=== PATIENT | male | born 1950 | race Caucasian/White ===

== ENCOUNTER 2023-02-18 11:31 | Outpatient (OUT) | payer MEDICARE, SELFPAY | END 2023-02-18 11:32 | LOC: WC 11:31 | PROVIDERS: PCP Family Medicine; Visit Provider Podiatrist Foot & Ankle Surgery | DX: G60.9 Hereditary and idiopathic neuropathy, unspecified (principal); M21.6X1 Other acquired deformities of right foot; M79.671 Pain in right foot; L97.512 Non-pressure chronic ulcer of other part of right foot with fat layer exposed; T87.89 Other complications of amputation stump; L89.891 Pressure ulcer of other site, stage 1 | CPT/HCPCS: 99212; G0463 ==

== ENCOUNTER 2023-02-25 09:51 | Outpatient (OUT) | payer MEDICARE, OTHER, SELFPAY | END 2023-02-25 09:52 | LOC: WC 09:51 | PROVIDERS: PCP Family Medicine; Visit Provider Podiatrist Foot & Ankle Surgery | DX: M21.6X1 Other acquired deformities of right foot (principal); M79.671 Pain in right foot; G60.9 Hereditary and idiopathic neuropathy, unspecified; L97.512 Non-pressure chronic ulcer of other part of right foot with fat layer exposed; T87.89 Other complications of amputation stump; L89.891 Pressure ulcer of other site, stage 1 | CPT/HCPCS: 29445 ==

== ENCOUNTER 2023-03-04 07:53 | Outpatient (OUT) | payer MEDICARE, OTHER, SELFPAY | END 2023-03-04 07:54 | PROVIDERS: PCP Family Medicine; Visit Provider Podiatrist Foot & Ankle Surgery | DX: T87.89 Other complications of amputation stump (principal); L89.891 Pressure ulcer of other site, stage 1 | CPT/HCPCS: 99211; G0463 ==

== ENCOUNTER 2023-03-11 09:46 | Outpatient (OUT) | payer MEDICARE, OTHER, SELFPAY | END 2023-03-11 09:47 | disposition home or self-care (01) | LOC: WC 09:46 | PROVIDERS: PCP Family Medicine; Visit Provider Podiatrist Foot & Ankle Surgery | DX: T87.89 Other complications of amputation stump (principal); M21.6X1 Other acquired deformities of right foot; L89.891 Pressure ulcer of other site, stage 1; E78.49 Other hyperlipidemia; I10 Essential (primary) hypertension; M79.671 Pain in right foot; G60.9 Hereditary and idiopathic neuropathy, unspecified; G60.0 Hereditary motor and sensory neuropathy; L97.512 Non-pressure chronic ulcer of other part of right foot with fat layer exposed | CPT/HCPCS: G0463 ==

== ENCOUNTER 2023-03-29 09:16 | Outpatient (OUT) | payer MEDICARE, OTHER, SELFPAY | END 2023-03-29 09:17 | disposition home or self-care (01) | LOC: WC 09:16 | PROVIDERS: PCP Family Medicine; Visit Provider Podiatrist Foot & Ankle Surgery | DX: M21.6X1 Other acquired deformities of right foot (principal); M79.671 Pain in right foot; G60.9 Hereditary and idiopathic neuropathy, unspecified; L97.512 Non-pressure chronic ulcer of other part of right foot with fat layer exposed | CPT/HCPCS: G0463 ==

== ENCOUNTER 2023-04-21 06:11 | Outpatient (OUT) | payer MEDICARE, OTHER, SELFPAY ==
[2023-04-21 07:24] LABS: Free T3 2.95 pg/mL (2.18-3.98); Thyroid Stimulating Hormone 5.163 uIU/mL (0.358-3.740)
[2023-04-21 07:39] LABS: Free T4 0.98 ng/dL (0.76-1.46)
== END 2023-04-21 06:12 | disposition home or self-care (01) ==
LOC: LAB 06:12
PROVIDERS: PCP Family Medicine; Visit Provider Family Medicine
DX: E05.90 Thyrotoxicosis, unspecified without thyrotoxic crisis or storm (principal)
CPT/HCPCS: 36415; 84439; 84443; 84481

== ENCOUNTER 2023-05-25 06:51 | Outpatient (OUT) | payer MEDICARE, OTHER, SELFPAY ==
[2023-05-25 07:57] LABS: Free T4 0.97 ng/dL (0.76-1.46)
[2023-05-25 08:04] LABS: Free T3 3.05 pg/mL (2.18-3.98); Thyroid Stimulating Hormone 4.391 uIU/mL (0.358-3.740)
== END 2023-05-25 06:52 | disposition home or self-care (01) ==
LOC: LAB 06:54
PROVIDERS: PCP Family Medicine; Visit Provider Family Medicine
DX: E05.90 Thyrotoxicosis, unspecified without thyrotoxic crisis or storm (principal)
CPT/HCPCS: 36415; 84439; 84443; 84481

== ENCOUNTER 2023-06-27 06:20 | Outpatient (OUT) | payer MEDICARE, OTHER, SELFPAY ==
[2023-06-27 08:24] LABS: Free T4 1.17 ng/dL (0.76-1.46)
[2023-06-27 08:28] LABS: Thyroid Stimulating Hormone 2.805 uIU/mL (0.358-3.740)
== END 2023-06-27 06:21 | disposition home or self-care (01) ==
LOC: LAB 06:22
PROVIDERS: PCP Family Medicine; Visit Provider Family Medicine
DX: E05.90 Thyrotoxicosis, unspecified without thyrotoxic crisis or storm (principal)
CPT/HCPCS: 36415; 84439; 84443

== ENCOUNTER 2023-07-05 09:25 | Outpatient (OUT) | payer MEDICARE, OTHER, SELFPAY ==
--- NOTE | 2023-07-05 | XR_ITS ---
The [address] [address] Patient Name: SILVINO MARVIN MRN: [id number] date: 1950 Sex: M Assigned Patient Location: Current Patient Location: Accession/Order Number: [id number] Exam Date: 07/05/2023 09:35 Report Date: 07/06/2023 01:28 At the request of: IVELISSE ORNELAS Procedure: XR foot RT min 3V PROCEDURE: XR foot RT min 3V HISTORY: RIGHT FOOT INJURY COMPARISON: XR foot right 02/07/2023 FINDINGS: BONES:Prior amputation of the fifth toe at the level of the mid metatarsal. Mild degenerative changes the first metatarsophalangeal joint and the tarsal-metatarsal joints. Degenerative enthesopathic spurring at the Achilles tendon insertion. SOFT TISSUES:Mild distal medial and dorsal soft tissue swelling. EFFUSION:None visible. OTHER: Negative. XR/XR foot RT min 3V IMPRESSION: 1. Chronic surgical changes. 2. Mild soft tissue swelling. No acute bone abnormality. Electronically authenticated by: JASE TIDWELL Date: 07/06/2023 01:28
== END 2023-07-05 09:26 | disposition home or self-care (01) ==
LOC: WC 09:26
PROVIDERS: PCP Family Medicine; Visit Provider Podiatrist Foot & Ankle Surgery
DX: L97.512 Non-pressure chronic ulcer of other part of right foot with fat layer exposed (principal); G62.9 Polyneuropathy, unspecified; I10 Essential (primary) hypertension; E78.49 Other hyperlipidemia; M21.6X1 Other acquired deformities of right foot; T87.89 Other complications of amputation stump; S90.111A Contusion of right great toe without damage to nail, initial encounter
CPT/HCPCS: 73630; G0463

== ENCOUNTER 2023-07-26 09:29 | Outpatient (OUT) | payer MEDICARE, OTHER, SELFPAY ==
--- NOTE | 2023-07-26 | XR_ITS ---
[address] [address] Patient Name: SILVINO MARVIN MRN: [id number] date: 1950 Sex: M Assigned Patient Location: [facility] Current Patient Location: RAD Accession/Order Number: [id number] Exam Date: 07/26/2023 09:38 Report Date: 07/26/2023 11:03 At the request of: IVELISSE ORNELAS Procedure: XR foot JOHANNY min 3V EXAMINATION: XR foot JOHANNY min 3V HISTORY: BILATERAL FOOT PAIN COMPARISON: No relevant comparison available. FINDINGS: RIGHT FINDINGS: BONES: No acute fracture or dislocation. Remote amputation of the fifth toe mid diaphysis of the fifth metatarsal. Persistent hammertoe deformities of the first through fourth toes. Mild degenerative changes. Moderate enthesopathic spurring the calcaneus at the Achilles insertion SOFT TISSUES: Negative. No visible soft tissue swelling. OTHER: Negative. LEFT FINDINGS: BONES: No acute fracture or dislocation. Hammertoe deformities of all toes. SOFT TISSUES: Negative. No visible soft tissue swelling. OTHER: Negative. XR/XR foot JOHANNY min 3V IMPRESSION: RIGHT CONCLUSION: No acute abnormality LEFT CONCLUSION: No acute abnormality Electronically authenticated by: PHIL PEOPLES Date: 07/26/2023 11:03
== END 2023-07-26 09:30 | disposition home or self-care (01) ==
LOC: RAD 09:29
PROVIDERS: PCP Family Medicine; Visit Provider Podiatrist Foot & Ankle Surgery
DX: M25.571 Pain in right ankle and joints of right foot (principal); M25.572 Pain in left ankle and joints of left foot
CPT/HCPCS: 73610; 73630

== ENCOUNTER 2024-04-23 07:05 | Outpatient (OUT) | payer MEDICARE, OTHER, SELFPAY ==
--- OUTSIDE RECORDS SUMMARY | 2024-04-23 07:10 | XMS_ITS | CCD ---
Author Organization [facility] CliniSymd Care Team Providers Care Road Traffic Controller Name Role Phone CHEIKH ., DR NARANJO Primary Care Unavailable HIGHLANDER, PETER D Admitting Unavailable HIGHLANDER, PETER D Attending Unavailable HIGHLANDER, PETER D Attending Unavailable HIGHLANDER, PETER D Admitting Unavailable HOY ., DR NARANJO Primary Care Unavailable HOY ., DR NARANJO Primary Care Unavailable HIGHLANDER, PETER D Admitting Unavailable HIGHLANDER, PETER D Attending Unavailable HIGHLANDER, PETER D Attending Unavailable HIGHLANDER, PETER D Admitting Unavailable ZIEBER, DR OLVIN Lopez Consulting Unavailable HOY ., DR NARANJO Primary Care Unavailable HIGHLANDER, PETER D Consulting Unavailable MIRACLE ., WENDY JIMENEZ Consulting Unavailable ROSCOE II, BENITA Consulting Unavailable BURGESSTOMMY Consulting Unavailable HOY ., DR NARANJO Primary Care Unavailable HOY ., DR NARANJO Consulting Unavailable HOY ., DR NARANJO Attending Unavailable HOY ., DR NARANJO Admitting Unavailable HOY ., DR NARANJO Primary Care Unavailable HOY ., DR NARANJO Consulting Unavailable HOY ., DR NARANJO Attending Unavailable HOY ., DR NARANJO Admitting Unavailable HOY ., DR NARANJO Primary Care Unavailable HOY ., DR NARANJO Consulting Unavailable HOY ., DR NARANJO Attending Unavailable HOY ., DR NARANJO Admitting Unavailable HOY ., DR NARANJO Primary Care Unavailable HOY ., DR NARANJO Consulting Unavailable HOY ., DR NARANJO Attending Unavailable HOY ., DR NARANJO Admitting Unavailable HIGHLANDER, PETER D Admitting Unavailable HIGHLANDER, PETER D Attending Unavailable HOY ., DR NARANJO Primary Care Unavailable HOY ., DR NARANJO Primary Care Unavailable HOY ., DR NARANJO Consulting Unavailable HOY ., DR NARANJO Attending Unavailable HOY ., DR NARANJO Admitting Unavailable ZIEBER, DR OLVIN Lopez Consulting Unavailable HOY ., DR NARANJO Primary Care Unavailable HIGHLANDER, PETER D Consulting Unavailable HIGHLANDER, PETER D Attending Unavailable HIGHLANDER, PETER D Admitting Unavailable Medications Current Medications Medication Drug Class(es) Dates Sig (Normalized) Sig (Original) doxazosin 4 mg oral tablet (1 source) alpha-Adrenergic Isela Start: 04-06-2024 Doxazosin Active MG PO April 06, 2024 12:00am levothyroxine sodium 0.075 mg oral tablet (1 source) l-Thyroxine Start: 04-06-2024 Levothyroxine Active MCG PO April 06, 2024 12:00am magnesium oxide 500 mg oral capsule (1 source) Start: 04-06-2024 take 500 mg by mouth once daily Magnesium Oxide Active 500 MG PO Daily April 06, 2024 12:00am ofloxacin 3 mg/ml ophthalmic solution (1 source) Quinolone Antimicrobial Start: 04-06-2024 take 1 drop(s) into the eye(s) four times daily Ofloxacin Active 2 DROPS OPHTHALMIC Four times daily 10 7 April 06, 2024 12:00am right eye oxybutynin chloride 5 mg oral tablet (1 source) Cholinergic Muscarinic Antagonist Start: 04-06-2024 Oxybutynin Chloride Active MG PO April 06, 2024 12:00am Problems Active Problems Problem Classification Problem Date Documented Da te Episodic/Chronic Acquired foot deformities (1 source) Other acquired deformities of right foot; Translations: [OTHER ACQUIRED DEFORMITIES RT FOOT] Onset: 02-16-2023 Episodic Chronic ulcer of skin (5 sources) 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 breakdown of skin; Translations: [Non-pressure chronic ulcer of right heel and midfoot with fat layer exposed] Onset: 02-06-2023 Chronic Complications of surgical procedures or medical care (4 sources) Other complications of amputation stump; Translations: [OTH COMPLICATIONS AMPUTATION STUMP] Onset: 02-10-2023 Episodic Congestive heart failure; nonhypertensive (1 source) Unspecified diastolic (congestive) heart failure; Translations: [UNSPECIFIED DIASTOLIC HEART FAILURE] Onset: 12-11-2022 Chronic Deficiency and other anemia (1 source) Anemia, unspecified; Translations: [ANEMIA UNSPECIFIED] Onset: 12-11-2022 Episodic Diabetes mellitus with complications (1 source) Type 2 diabetes mellitus with foot ulcer; Translations: [TYPE 2 DM W/FOOT ULCER] Onset: 02-06-2023 Chronic Disorders of lipid metabolism (1 source) Hyperlipidemia, unspecified; Translations: [HYPERLIPIDEMIA UNSPECIFIED] Onset: 02-16-2023 Chronic Essential hypertension (1 source) Essential (primary) hypertension; Translations: [ESSENTIAL PRIMARY HYPERTENSION] Onset: 02-16-2023 Chronic Hypertension with complications and secondary hypertension (1 source) Hypertensive heart disease with heart failure; Translations: [HTN HEART DISEASE W/HEART FAIL] Onset: 12-11-2022 Chronic Inflammation; infection of eye (except that caused by tuberculosis or sexually transmitteddisease) (2 sources) Bacterial conjunctivitis; Translations: [Unspecified conjunctivitis] 04-06-2024 Episodic Other aftercare (1 source) Other fdc (current) drug therapy; Translations: [OTH HALF-WAY CURRENT DRUG THERAPY] Onset: 02-16-2023 Episodic Other lower respiratory disease (4 sources) Dyspnea, unspecified; Translations: [DYSPNEA UNSPECIFIED] Onset: 01-03-2023 Episodic Other lower respiratory disease (4 sources) Other forms of dyspnea; Translations: [OTHER FORMS OF DYSPNEA] Onset: 12-21-2022 Episodic Other nervous system disorders (1 source) Polyneuropathy, unspecified; Translations: [POLYNEUROPATHY UNSPECIFIED] Onset: 02-16-2023 Chronic Other skin disorders (1 source) Epidermal thickening, unspecified; Translations: [EPIDERMAL THICKENING UNSPECIFIED] Onset: 02-16-2023 Episodic Residual codes; unclassified (1 source) Localized edema; Translations: [LOCALIZED EDEMA] Onset: 01-06-2023 Episodic Thyroid disorders (4 sources) Hypothyroidism, unspecified; Translations: [HYPOTHYROIDISM UNSPECIFIED] Onset: 01-07-2023 Chronic Past or Other Problems Problem Classification Problem Date Documented Da te Episodic/Chronic Malaise and fatigue (1 source) Other fatigue; Translations: [OTHER FATIGUE] Onset: 04-13-2022 Episodic Other screening for suspected conditions (not mental disorders or infectious disease) (6 sources) Other specified abnormal findings of blood chemistry; Translations: [Encounter for screening for malignant neoplasm of prostate] Onset: 04-09-2022 Episodic Results Test Name Value Interpretation Reference Range Facility CULTURE OTHERon 02-11-2023 CULTURE OTHER Isolate 1 Staphylococcus aureus Light growth of ORGANISM 1 Staphylococcus aureus ANTIBIOTIC M.I.C RX STATUS Beta-Lactamase Pos POS F Cefoxitin Screen Neg NEG F Benzylpenicillin >=0.5 R F Oxacillin <=0.25 S F Gentamicin <=0.5 S F Ciprofloxacin <=0.5 S F Levofloxacin <=0.12 S F Moxifloxacin <=0.25 S F Inducible Clindamycin Resistance Neg NEG F Erythromycin <=0.25 S F Clindamycin <=0.25 S F Quinupristin/Dalfopri stin <=0.25 S F Linezolid 2 S F Vancomycin <=0.5 S F Tetracycline <=1 S F Rifampicin <=0.5 S F Trimethoprim/Sulfamet hoxazole <=10 S F Normal [facility] Comment on above: Performed By: #### L IPID, T4, TSH, FT3, CMP #### [facility] [address] [place] [address] Dr. Maggy Irving FUNGAL CULTUREon 02-09-2023 Fungus Stain Final report Normal [facility] Comment on above: Performed By: #### L IPID, T4, TSH, FT3, CMP #### [facility] [address] [place] [address] Dr. Maggy Irving Result 1 Comment Normal [facility] Comment on above: Result Comment: SUDHIR/ Calcofluor preparation: no fungus observed. Performed By: #### L IPID, T4, TSH, FT3, CMP #### [facility] [address] [place] [address] Dr. Maggy Irving ACID FAST SMEAR AND CXon Acid Fast Smear Negative Normal [facility] Comment on above: Performed By: #### A FB #### [facility] [address] [place] [address] Dr. Maggy Irving [employer] Specimen Processing Tissue Grinding [facility] Comment on above: Performed By: #### A FB #### [facility] [address] [place] [address] Dr. Maggy Irving CULTURE ANAEROBICon 02-08-20 CULTURE ANAEROBIC Isolate 1 Finedottyldia magna Light growth of Normal [facility] Comment on above: Result Comment: EVID ENCE BASED PRACTICE BY [facility] HAS DEMONSTRATED THAT FINEGOLDIA SPECIES ARE ROUTINELY SUSCEPTIBLE TO PIPERACILLIN-TAZOBACTAM, CEFOXITIN, ERTAPENEM, IMIPENEM METRONIDAZOLE AND VARIABLY RESISTANT TO CLINDAMYCIN. Performed By: #### L IPID, T4, TSH, FT3, CMP #### [facility] [address] [place] [address] Dr. Maggy MENDOZA STAINon 02-07-2023 COMMENTS NO ORGANISMS OBSERVED Normal [facility] Comment on above: Performed By: #### G STAIN #### [facility] [address] [place] [address] Dr. Maggy Irving DIPHTHEROIDS Normal [facility] Comment on above: Performed By: #### G STAIN #### [facility] [address] [place] [address] Dr. Maggy Irving EPITHELIALS Normal [facility] Comment on above: Performed By: #### G STAIN #### [facility] [address] [place] [address] Dr. Maggy Irving FUNGAL ELEMENTS Normal [facility] Comment on above: Performed By: #### G STAIN #### [facility] [address] [place] [address] Dr. Maggy MENDOZA NEG BACILLI Normal [facility] Comment on above: Performed By: #### G STAIN #### [facility] [address] [place] [address] Dr. Maggy MENDOZA NEG DIPPLOCOCCI Normal [facility] Comment on above: Performed By: #### G STAIN #### [facility] [address] [place] [address] Dr. Maggy MENDOZA POS BACILLI Normal [facility] Comment on above: Performed By: #### G STAIN #### [facility] [address] [place] [address] Dr. Maggy Irving GRAM POSITIVE COCCI Normal [facility] Comment on above: Performed By: #### G STAIN #### [facility] [address] [place] [address] Dr. Maggy Irving GRAM STAIN SOURCE 5th Metatarsal Bone Normal [facility] Comment on above: Performed By: #### G STAIN #### [facility] [address] [place] [address] Dr. Maggy Irving GS_DIPTH Normal [facility] Comment on above: Performed By: #### G STAIN #### [facility] [address] [address] [address] Maggy Irving WBC RARE Normal [facility] Comment on above: Performed By: #### G STAIN #### [facility] [address] [address] [address] Maggy Irving POINT OF CARE GLUCOSEon 01-18 Glucose [Mass/Vol] 114 mg/dL Critically high 74-106 [facility] Comment on above: Performed By: #### P OCGLUC #### [facility] [address] [address] [address] Maggy Irving Glucose [Mass/Vol] 122 mg/dL Critically high -106 [facility] Comment on above: Performed By: #### P OCGLUC #### [facility] [address] [place] [address] Dr. Maggy Irving PROF CHEM 8 (BAS METB)on Anion gap [Moles/Vol] 12.0 mmol/L Normal [facility] Comment on above: Performed By: #### L IPID, T4, TSH, FT3, CMP #### [facility] [address] [place] [address] Dr. Maggy Irving Calcium [Mass/Vol] 8.7 mg/dL Normal 8.5-10.1 [facility] Comment on above: Performed By: #### L IPID, T4, TSH, FT3, CMP #### [facility] [address] [address] [address] Maggy Irving Chloride [Moles/Vol] 104 mmol/L Normal 98-107 [facility] Comment on above: Performed By: #### L IPID, T4, TSH, FT3, CMP #### [facility] [address] [place] [address] Dr. Maggy Irving CO2 [Moles/Vol] 28.1 mmol/L Normal 21.0-32.0 [facility] Comment on above: Performed By: #### L IPID, T4, TSH, FT3, CMP #### [facility] [address] [address] [address] Maggy Irving Creatinine [Mass/Vol] 0.80 mg/dL Normal 0.70-1.30 [facility] Comment on above: Performed By: #### L IPID, T4, TSH, FT3, CMP #### [facility] [address] [address] [address] Maggy Irving EGFR-AF SLOVAK >60 Normal >=60 [facility] Comment on above: Performed By: #### L IPID, T4, TSH, FT3, CMP #### [facility] [address] [place] [address] Dr. Maggy Irving EGFR-NON AF SLOVAK >60 Normal >=60 [facility] Comment on above: Performed By: #### L IPID, T4, TSH, FT3, CMP #### [facility] [address] [place] [address] Dr. Maggy Irving Glucose [Mass/Vol] 129 mg/dL Critically high 74-106 [facility] Comment on above: Performed By: #### L IPID, T4, TSH, FT3, CMP #### [facility] [address] [address] [address] Maggy Irving Potassium [Moles/Vol] 4.1 mmol/L Normal 3.5-5.1 [facility] Comment on above: Performed By: #### L IPID, T4, TSH, FT3, CMP #### [facility] [address] [place] [address] Dr. Maggy Irving Sodium [Moles/Vol] 140 mmol/L Normal 136-145 [facility] Comment on above: Performed By: #### L IPID, T4, TSH, FT3, CMP #### [facility] [address] [place] [address] Dr. Maggy Irving Urea nitrogen [Mass/Vol] 20.0 mg/dL Critically high 7.0-18.0 [facility] Comment on above: Performed By: #### L IPID, T4, TSH, FT3, CMP #### [facility] [address] [place], [place] [id number] Dr. Maggy Irving Urea nitrogen/Creatinine [Mass ratio] 25.0 mg/mg Normal [facility] Comment on above: Performed By: #### L IPID, T4, TSH, FT3, CMP #### [facility] [address] [place] [address] Dr. Maggy Irving FREE T3on 01-07-2023 FREE T3 3.24 pg/mlL Normal 2.18-3.98 [facility] Comment on above: Performed By: #### L IPID, T4, TSH, FT3, CMP #### [facility] [address] [place] [address] Dr. Maggy Irving T4on 01-07-2023 T4 [Mass/Vol] 9.10 ug/dL Normal 4.50-12.10 [facility] Comment on above: Performed By: #### L IPID, T4, TSH, FT3, CMP #### [facility] [address] [place] [address] Dr. Maggy Irving TSHon 01-07-2023 TSH 5.957 uIU/mL Critically high 0.358-3.740 [facility] Comment on above: Performed By: #### L IPID, T4, TSH, FT3, CMP #### [facility] [address] [place] [address] Dr. Maggy Irving NM STRESS/REST MULTIon 01-03 NM STRESS/REST MULTI Patient: SILVINO MARVINSebas Exam Date: 01/03/2023 : 1950 Gender:M Ordering : DR MARCELLA GROSS . Admission #: [id number] Family : Order #: [id number] CLICK HERE TO VIEW EXAM RADIOLOGY REPORT PROCEDURE: RADIONUCLIDE IMAGING STRESS/REST MULTI COMPARISON: None. INDICATIONS: Dyspnea, edema TECHNIQUE: Exam Description: Stress/Rest one day protocol gated SPECT Rest Imagin.7 mCi Tc-99m Cardiolite IV on 01/03/2023 Stress Imaging 30.9 mCi Tc-99m Cardiolite IV on 01/03/2023 Exercise Protocol: 0.4 mg Lexiscan given IV Heart Rate (bpm): Rest: 78 Max: 100 PMHR: 66 Blood Pressure: Rest: 142/80 Max: 142/80 Symptoms: Rest and peak stress ECG findings were normal and the exercise portion of the study was normal per attending physician Dr. Garcia . For more details please see separate cardiac stress test report. FINDINGS: QUALITY OF STUDY: Excellent. PERFUSION DEFECT: LOCATION: Mid-inferolateral. Apical lateral. SIZE: Small (1-2 segments). SEVERITY: Mild. TYPE: Persistent. WALL MOTION: Normal. LV SIZE: Normal. 96 mL. TID / TCD: None; 1.0 LVEF: Normal. Calculated EF 64%. SUMMARY: Myocardial perfusion imaging study has ABNORMAL findings. CONCLUSION: 1. No acute or reversible ischemia 2. Fixed ischemia versus diaphragm attenuation artifact involving inferior/inferior-lat eral wall. 3. Normal ventricle size, wall motion, and ejection fraction. Dictated by: Olvin Khanna M.D. on 01/04/2023 at 07:41 Approved by: Olvin Khanna M.D. on 01/04/2023 at 07:45 Normal [facility] ECHOCARDIO M/2D COMPLETEon 0 12-21-2022 ECHOCARDIO M/2D COMPLETE Patient: SILVINO MARVIN Exam Date: 12/21/2022 : 1950 Gender:M Ordering : DR MARECLLA GROSS . Admission #: [id number] Family : Order #: [id number] CLICK HERE TO VIEW EXAM ECHOCARDIOGRAM REPORT PROCEDURE: CARDIO PULMONARY ECHOCARDIO M/2D COMP INDICATIONS: RIVAS, Leg edema, HTN COMPARISON: None. DESCRIPTION: COMPLETE ECHOCARDIOGRAM Real-time transthoracic echocardiography with 2D, M-mode, spectral and color flow Doppler performed. QUALITY: Technical quality was good. LEFT VENTRICLE: Normal chamber size. Moderate concentric left ventricular hypertrophy. Global left ventricular systolic function is normal. LV EF: Estimated left ventricular ejection fraction is 60-65% DIASTOLIC: Normal diastolic function. ATRIAL SEPTUM: LEFT ATRIUM: Normal chamber size. RIGHT ATRIUM: Mild dilatation. RIGHT VENTRICLE: Normal chamber size. Normal right ventricular systolic function. TRICUSPID VALVE: Normal mobility and thickness. No stenosis with trivial regurgitation. No evidence of pulmonary hypertension. RVSP 34 mmHg MITRAL VALVE: Normal mobility and thickness. No mitral valve prolapse. No evidence of mitral valve stenosis. There is no mitral annular calcification. Trivial mitral regurgitation. AORTIC VALVE: Normal trileaflet appearance. No visible sclerosis. Normal leaflet mobility. No evidence of aortic valve stenosis. Trivial aortic regurgitation. AORTIC ROOT: Normal diameter and appearance. PULMONIC VALVE: Trivial regurgitation. Mildly elevated peak velocity of 1.9 m/s. PERICARDIUM: No evidence of pericardial effusion. IVC: Collapses with inspirations. Normal size. PLEURA: CONCLUSION: 1. Moderate concentric left ventricular hypertrophy. 2. Normal ventricular systolic function. LVEF is 60 to 65%. 3. Normal diastolic function. 4. No significant valvular dysfunction. 5. Normal right-sided pressures. Adult Echocardiography Procedure Report Left Ventricle LVEDD (3.7 - 5.6 cm): 4.29 cm LVESD (2.2 - 4.0 cm): 2.93 cm LVIVS thickness (0.6 - 1.2 cm): 1.39 cm LVPW thickness (0.5 - 1.0 cm): 1.40 cm e': 0.09 m/s E - e': 7.10 LVOT Max Gradient: 4.64 mm[Hg], 4.77 mm[Hg] Peak Velocity (LVOT): 1.08 m/s, 1.09 m/s Mean Velocity (LVOT): 0.80 m/s, 0.80 m/s LVOT Diameter 2.15 cm Left Ventricular Ejection Fraction: 60-65 % Left Atrium LA Volume Index (2D A2C): 73.06 ml, 73.06 ml Left Atrium Systolic Dimension: 3.55 cm Mitral Valve MV E to A Ratio: 0.85, 0.84 Mitral Valve A-Wave Peak Velocity: 0.75 m/s, 0.83 m/s Mitral Valve E-Wave Peak Velocity: 0.63 m/s, 0.70 m/s Right Ventricle RV Internal Diastolic Dimension: 4.21 cm Aorta AO Root Diam: 3.03 cm Ascending Ao Diam: 3.04 cm Aortic Valve AoV Area (Peak Francisco Javier): 2.48 cm2, 2.46 cm2 AoV Area (VTI): 2.43 cm2, 2.42 cm2 Peak Velocity(Antegrade Flow): 1.59 m/s Peak Gradient(Antegrade Flow): 10.15 mm[Hg] Mean Velocity(Antegrade Flow): 1.06 m/s Mean Gradient(Antegrade Flow): 5.16 mm[Hg] Velocity Time Integral: 30.46 cm Tricuspid Valve Peak Velocity (Regurgitant Flow): 2.79 m/s, 2.54 m/s, 2.26 m/s, 2.38 m/s Pulmonic Valve Mean Gradient: 7.34 mm[Hg] Mean Velocity: 1.27 m/s Peak Velocity: 1.88 m/s, 1.84 m/s Peak Gradient: 14.10 mm[Hg], 13.57 mm[Hg] Right Atrium Right Atrium Systolic Pressure: 56.71 ml, 56.71 ml Dictated by: Dez Ling M.D. on 12/23/2022 at 17:54 Approved by: Dez Ling M.D. on 12/23/2022 at 18:05 Normal [facility] BNPon 12-07-2022 Natriuretic peptide B (Bld) [Mass/Vol] 37.0 pg/mL Normal <=900.0 [facility] Comment on above: Performed By: #### L IPID, T4, TSH, FT3, CMP #### [facility] [address] [place] [address] Dr. Maggy Irving CBC AUTO DIFFon 12-07-2022 BASO # 0.0 103/ul Normal 0.0-0.1 [facility] Comment on above: Performed By: #### L IPID, T4, TSH, FT3, CMP #### [facility] [address] [place] [address] Dr. Maggy Irving Basophils/100 WBC (Bld) 0.2 % Normal 0.2-2.0 [facility] Comment on above: Performed By: #### L IPID, T4, TSH, FT3, CMP #### [facility] [address] [place] [address] Dr. Maggy Irving EO # 0.2 103/ul Normal 0.0-0.7 [facility] Comment on above: Performed By: #### L IPID, T4, TSH, FT3, CMP #### [facility] [address] [place] [address] Dr. Maggy Irving Eosinophils/100 WBC (Bld) 3.7 % Normal 0.9-7.0 [facility] Comment on above: Performed By: #### L IPID, T4, TSH, FT3, CMP #### [facility] [address] [place] [address] Dr. Maggy Irving Erythrocyte distribution width (RBC) [Ratio] 11.9 % Normal 11.0-15.0 [facility] Comment on above: Performed By: #### L IPID, T4, TSH, FT3, CMP #### [facility] [address] [place] [address] Dr. Maggy Irving Hematocrit (Bld) [Volume fraction] 39.7 % Critically low 42.0-54.0 [facility] Comment on above: Performed By: #### L IPID, T4, TSH, FT3, CMP #### [facility] [address] [place] [address] Dr. Maggy Irving Hemoglobin (Bld) [Mass/Vol] 14.0 g/dL Normal 14.0-18.0 [facility] Comment on above: Performed By: #### L IPID, T4, TSH, FT3, CMP #### [facility] [address] [place] [address] Dr. Maggy Irving IG # 0.02 10e3/ul Normal 0.00-0.03 [facility] Comment on above: Performed By: #### L IPID, T4, TSH, FT3, CMP #### [facility] [address] [place] [address] Dr. Maggy Irving IG % 0.5 % Normal 0.0-0.5 [facility] Comment on above: Performed By: #### L IPID, T4, TSH, FT3, CMP #### [facility] [address] [place] [address] Dr. Maggy Irving LYMPH # 0.9 103/ul Critically low 1.2-3.8 [facility] Comment on above: Performed By: #### L IPID, T4, TSH, FT3, CMP #### [facility] [address] [place] [address] Dr. Maggy Irving Lymphocytes/100 WBC (Bld) 21.1 % Normal 20.5-60.0 [facility] Comment on above: Performed By: #### L IPID, T4, TSH, FT3, CMP #### [facility] [address] [place] [address] Dr. Maggy Irving MANUAL DIFF REQ NO Normal [facility] Comment on above: Performed By: #### L IPID, T4, TSH, FT3, CMP #### [facility] [address] [place] [address] Dr. Maggy Irving MCH (RBC) [Entitic mass] 30.5 pg Normal 25.9-34.0 [facility] Comment on above: Performed By: #### L IPID, T4, TSH, FT3, CMP #### [facility] [address] [place] [address] Dr. Maggy Irving MCHC (RBC) [Mass/Vol] 35.3 g/dL Critically high 29.9-35.2 [facility] Comment on above: Performed By: #### L IPID, T4, TSH, FT3, CMP #### [facility] [address] [place] [address] Dr. Maggy Irving MCV (RBC) [Entitic vol] 86.5 fL Normal 80.0-94.0 [facility] Comment on above: Performed By: #### L IPID, T4, TSH, FT3, CMP #### [facility] [address] [place] [address] Dr. Maggy Irving MONO # 0.4 103/ul Normal 0.3-0.8 [facility] Comment on above: Performed By: #### L IPID, T4, TSH, FT3, CMP #### [facility] [address] [place] [address] Dr. Maggy Irving Monocytes/100 WBC (Bld) 8.7 % Normal 1.7-12.0 [facility] Comment on above: Performed By: #### L IPID, T4, TSH, FT3, CMP #### [facility] [address] [place] [address] Dr. Maggy Irving NEUT # 2.9 103/ul Normal 1.4-6.5 [facility] Comment on above: Performed By: #### L IPID, T4, TSH, FT3, CMP #### [facility] [address] [address] [address] Maggy Irving Neutrophils/100 WBC (Bld) 65.8 % Normal 43.0-75.0 [facility] Comment on above: Performed By: #### L IPID, T4, TSH, FT3, CMP #### [facility] [address] [address] [address] Maggy Irving Platelet mean volume (Bld) [Entitic vol] 9.9 fL Normal 9.5-13.5 [facility] Comment on above: Performed By: #### L IPID, T4, TSH, FT3, CMP #### [facility] [address] [place] [address] Dr. Maggy Irving PLT 128 103/ul Critically low 150-450 [facility] Comment on above: Performed By: #### L IPID, T4, TSH, FT3, CMP #### [facility] [address] [place] [address] Dr. Maggy Irving RBC 4.59 106/ul Critically low 4.70-6.10 [facility] Comment on above: Performed By: #### L IPID, T4, TSH, FT3, CMP #### [facility] [address] [place] [address] Dr. Maggy Irving WBC 4.4 103/ul Normal 4.0-11.0 [facility] Comment on above: Performed By: #### L IPID, T4, TSH, FT3, CMP #### [facility] [address] [place] [address] Dr. Maggy Irving FREE THYROXINE INDEX T7on FTI 2.72 Normal 1.30-4.50 [facility] Comment on above: Performed By: #### L IPID, T4, TSH, FT3, CMP #### [facility] [address] [place] [address] Dr. Maggy Irving T3U 34.0 % Normal 33.0-40.0 [facility] Comment on above: Performed By: #### L IPID, T4, TSH, FT3, CMP #### [facility] [address] [place] [address] Dr. Maggy Irving T4 [Mass/Vol] 8.00 ug/dL Normal 4.50-12.10 [facility] Comment on above: Performed By: #### L IPID, T4, TSH, FT3, CMP #### [facility] [address] [place] [address] Dr. Maggy Irving IRONon 12-07-2022 Iron [Mass/Vol] 134.0 ug/dL Normal 65.0-175.0 [facility] Comment on above: Performed By: #### L IPID, T4, TSH, FT3, CMP #### [facility] [address] [place] [address] Dr. Maggy Irving LIPID PROFILEon 12-07-2022 CHOL-HDL RATIO NORM SEE BELOW Normal [facility] Comment on above: Result Comment: 3.3 - 4.4 LOW RISK 4.4 - 7.1 AVERAGE RISK 7.1 - 11.0 MODERATE RISK >11.0 HIGH RISK Performed By: #### L IPID, T4, TSH, FT3, CMP #### [facility] [address] [place] [address] Dr. Maggy Irving Cholesterol [Mass/Vol] 180 mg/dL Normal <=200 [facility] Comment on above: Performed By: #### L IPID, T4, TSH, FT3, CMP #### [facility] [address] [place] [address] Dr. Maggy Irving Cholesterol in HDL [Mass/Vol] 37 mg/dL Critically low 40-60 [facility] Comment on above: Performed By: #### L IPID, T4, TSH, FT3, CMP #### [facility] [address] [place] [address] Dr. Maggy Irving Cholesterol in LDL [Mass/Vol] 95.2 mg/dL Normal [facility] Comment on above: Performed By: #### L IPID, T4, TSH, FT3, CMP #### [facility] [address] [address] [address] Maggy Irving Cholesterol.total/Cho lesterol in HDL [Mass ratio] 4.9 {ratio} Normal [facility] Comment on above: Performed By: #### L IPID, T4, TSH, FT3, CMP #### [facility] [address] [address] [address] Maggy Irving HDL NORMAL > or = 60 mg/dl - LO W CARDIOVASCULAR RISK <40 mg/dl - HIGH CARDIOVASCULAR RISK Normal [facility] Comment on above: Performed By: #### L IPID, T4, TSH, FT3, CMP #### [facility] [address] [address] [address] Maggy Irving LDL CALC NORMAL SEE BELOW Normal [facility] Comment on above: Result Comment: <100 mg/dl OPTIMAL 100 - 129 mg/dl NEAR OR ABOVE OPTIMAL 130 - 159 mg/dl BORDERLINE HIGH 160 - 189 mg/dl HIGH >190 mg/dl VERY HIGH Performed By: #### L IPID, T4, TSH, FT3, CMP #### [facility] [address] [address] [address] Maggy Irving Triglyceride [Mass/Vol] 239 mg/dL Critically high <=150 [facility] Comment on above: Performed By: #### L IPID, T4, TSH, FT3, CMP #### [facility] [address] [address] [address] Maggy Irving VLDL CALC 47.8 mg/dL Normal [facility] Comment on above: Performed By: #### L IPID, T4, TSH, FT3, CMP #### [facility] [address] [address] [address] Maggy Irving PROF 14(COMP METB)on 023 Albumin [Mass/Vol] 3.8 g/dL Normal 3.4-5.0 [facility] Comment on above: Performed By: #### L IPID, T4, TSH, FT3, CMP #### [facility] [address] [address] [address] Maggy Irving Albumin/Globulin [Mass ratio] 1.1 {ratio} Normal [facility] Comment on above: Performed By: #### L IPID, T4, TSH, FT3, CMP #### [facility] [address] [place] [address] Dr. Maggy Irving ALP [Catalytic activity/Vol] 53 U/L Normal 46-116 [facility] Comment on above: Performed By: #### L IPID, T4, TSH, FT3, CMP #### [facility] [address] [place] [address] Dr. Maggy Irving ALT [Catalytic activity/Vol] 43 U/L Normal 16-63 [facility] Comment on above: Performed By: #### L IPID, T4, TSH, FT3, CMP #### [facility] [address] [place] [address] Dr. Maggy Irving Anion gap [Moles/Vol] 12.2 mmol/L Normal [facility] Comment on above: Performed By: #### L IPID, T4, TSH, FT3, CMP #### [facility] [address] [place] [address] Dr. Maggy Irving AST [Catalytic activity/Vol] 22 U/L Normal 15-37 [facility] Comment on above: Performed By: #### L IPID, T4, TSH, FT3, CMP #### [facility] [address] [place] [address] Dr. Maggy Irving Bilirubin [Mass/Vol] 0.6 mg/dL Normal 0.2-1.0 [facility] Comment on above: Performed By: #### L IPID, T4, TSH, FT3, CMP #### [facility] [address] [place] [address] Dr. Maggy Irving Calcium [Mass/Vol] 8.9 mg/dL Normal 8.5-10.1 [facility] Comment on above: Performed By: #### L IPID, T4, TSH, FT3, CMP #### [facility] [address] [place] [address] Dr. Maggy Irving Chloride [Moles/Vol] 104 mmol/L Normal 98-107 [facility] Comment on above: Performed By: #### L IPID, T4, TSH, FT3, CMP #### [facility] [address] [place] [address] Dr. Maggy Irving CO2 [Moles/Vol] 28.8 mmol/L Normal 21.0-32.0 [facility] Comment on above: Performed By: #### L IPID, T4, TSH, FT3, CMP #### [facility] [address] [place] [address] Dr. Maggy Irving Creatinine [Mass/Vol] 0.83 mg/dL Normal 0.70-1.30 [facility] Comment on above: Performed By: #### L IPID, T4, TSH, FT3, CMP #### [facility] [address] [place] [address] Dr. Maggy Irving EGFR-AF SLOVAK >60 Normal >=60 [facility] Comment on above: Performed By: #### L IPID, T4, TSH, FT3, CMP #### [facility] [address] [place] [address] Dr. Maggy Irving EGFR-NON AF SLOVAK >60 Normal >=60 [facility] Comment on above: Performed By: #### L IPID, T4, TSH, FT3, CMP #### [facility] [address] [place] [address] Dr. Maggy Irving Globulin (S) [Mass/Vol] 3.4 g/dL Normal [facility] Comment on above: Performed By: #### L IPID, T4, TSH, FT3, CMP #### [facility] [address] [place] [address] Dr. Maggy Irving Glucose [Mass/Vol] 116 mg/dL Critically high 74-[address] [facility] Comment on above: Performed By: #### L IPID, T4, TSH, FT3, CMP #### [facility] [address] [place] [address] Dr. Maggy Irving Potassium [Moles/Vol] 4.0 mmol/L Normal 3.5-5.1 [facility] Comment on above: Performed By: #### L IPID, T4, TSH, FT3, CMP #### [facility] [address] [address] [address] Maggy Irving Protein [Mass/Vol] 7.2 g/dL Normal 6.4-8.2 [facility] Comment on above: Performed By: #### L IPID, T4, TSH, FT3, CMP #### [facility] [address] [address] [address] Maggy Irving Sodium [Moles/Vol] 141 mmol/L Normal 136-145 [facility] Comment on above: Performed By: #### L IPID, T4, TSH, FT3, CMP #### [facility] [address] [address] [address] Maggy Irving Urea nitrogen [Mass/Vol] 17.0 mg/dL Normal 7.0-18.0 [facility] Comment on above: Performed By: #### L IPID, T4, TSH, FT3, CMP #### [facility] [address] [address] [address] Maggy Irving Urea nitrogen/Creatinine [Mass ratio] 20.5 mg/mg Normal [facility] Comment on above: Performed By: #### L IPID, T4, TSH, FT3, CMP #### [facility] [address] [address] [address] Maggy Irving TSHon 12-07-2022 TSH 5.531 uIU/mL Critically high 0.358-3.740 [facility] Comment on above: Performed By: #### L IPID, T4, TSH, FT3, CMP #### [facility] [address] [place] [address] Dr. Maggy Irving TESTOSTERONE, TOTALon 2021 Testosterone [Mass/Vol] 390 ng/dL Normal 264-916 [facility] Comment on above: Result Comment: Adul t male reference interval is based on a population of healthy nonobese males (BMI <30) between 19 and 39 years old. dave Jacobs.al. JCEM 2017,102;[id number]. PMID: [id number]. Performed By: #### L IPID, T4, TSH, FT3, CMP #### [facility] [address] [place] [address] Dr. Maggy Irving CBC AUTO DIFFon 04-09-2022 BASO # 0.0 103/ul Normal 0.0-0.1 [facility] Comment on above: Performed By: #### L IPID, T4, TSH, FT3, CMP #### [facility] [address] [place] [address] Dr. Maggy Irving Basophils/100 WBC (Bld) 0.2 % Normal 0.2-2.0 [facility] Comment on above: Performed By: #### L IPID, T4, TSH, FT3, CMP #### [facility] [address] [place] [address] Dr. Maggy Irving EO # 0.2 103/ul Normal 0.0-0.7 [facility] Comment on above: Performed By: #### L IPID, T4, TSH, FT3, CMP #### [facility] [address] [place] [address] Dr. Maggy Irving Eosinophils/100 WBC (Bld) 3.1 % Normal 0.9-7.0 [facility] Comment on above: Performed By: #### L IPID, T4, TSH, FT3, CMP #### [facility] [address] [place] [address] Dr. Maggy Irving Erythrocyte distribution width (RBC) [Ratio] 12.3 % Normal 11.0-15.0 [facility] Comment on above: Performed By: #### L IPID, T4, TSH, FT3, CMP #### [facility] [address] [place] [address] Dr. Maggy Irving Hematocrit (Bld) [Volume fraction] 41.6 % Critically low 42.0-54.0 [facility] Comment on above: Performed By: #### L IPID, T4, TSH, FT3, CMP #### [facility] [address] [place] [address] Dr. Maggy Irving Hemoglobin (Bld) [Mass/Vol] 14.6 g/dL Normal 14.0-18.0 [facility] Comment on above: Performed By: #### L IPID, T4, TSH, FT3, CMP #### [facility] [address] [place] [address] Dr. Maggy Irving IG # 0.02 10e3/ul Normal 0.00-0.03 [facility] Comment on above: Performed By: #### L IPID, T4, TSH, FT3, CMP #### [facility] [address] [place] [address] Dr. Maggy Irving IG % 0.4 % Normal 0.0-0.5 [facility] Comment on above: Performed By: #### L IPID, T4, TSH, FT3, CMP #### [facility] [address] [place] [address] Dr. Maggy Irving LYMPH # 0.9 103/ul Critically low 1.2-3.8 [facility] Comment on above: Performed By: #### L IPID, T4, TSH, FT3, CMP #### [facility] [address] [place] [address] Dr. Maggy Irving Lymphocytes/100 WBC (Bld) 17.9 % Critically low 20.5-60.0 [facility] Comment on above: Performed By: #### L IPID, T4, TSH, FT3, CMP #### [facility] [address] [place] [address] Dr. Maggy Irving MANUAL DIFF REQ NO Normal [facility] Comment on above: Performed By: #### L IPID, T4, TSH, FT3, CMP #### [facility] [address] [place] [address] Dr. Maggy Irving MCH (RBC) [Entitic mass] 31.1 pg Normal 25.9-34.0 [facility] Comment on above: Performed By: #### L IPID, T4, TSH, FT3, CMP #### [facility] [address] [place] [address] Dr. Maggy Irving MCHC (RBC) [Mass/Vol] 35.1 g/dL Normal 29.9-35.2 [facility] Comment on above: Performed By: #### L IPID, T4, TSH, FT3, CMP #### [facility] [address] [place] [address] Dr. Maggy Irving MCV (RBC) [Entitic vol] 88.5 fL Normal 80.0-94.0 [facility] Comment on above: Performed By: #### L IPID, T4, TSH, FT3, CMP #### [facility] [address] [place] [address] Dr. Maggy Irving MONO # 0.4 103/ul Normal 0.3-0.8 [facility] Comment on above: Performed By: #### L IPID, T4, TSH, FT3, CMP #### [facility] [address] [place] [address] Dr. Maggy Irving Monocytes/100 WBC (Bld) 8.7 % Normal 1.7-12.0 [facility] Comment on above: Performed By: #### L IPID, T4, TSH, FT3, CMP #### [facility] [address] [place] [address] Dr. Maggy Irving NEUT # 3.4 103/ul Normal 1.4-6.5 [facility] Comment on above: Performed By: #### L IPID, T4, TSH, FT3, CMP #### [facility] [address] [place] [address] Dr. Maggy Irving Neutrophils/100 WBC (Bld) 69.7 % Normal 43.0-75.0 [facility] Comment on above: Performed By: #### L IPID, T4, TSH, FT3, CMP #### [facility] [address] [place] [address] Dr. Maggy Irving Platelet mean volume (Bld) [Entitic vol] 9.9 fL Normal 9.5-13.5 [facility] Comment on above: Performed By: #### L IPID, T4, TSH, FT3, CMP #### [facility] [address] [place] [address] Dr. Maggy Irving PLT 121 103/ul Critically low 150-450 [facility] Comment on above: Performed By: #### L IPID, T4, TSH, FT3, CMP #### [facility] [address] [address] [address] Maggy Irving RBC 4.70 106/ul Normal 4.70-6.10 [facility] Comment on above: Performed By: #### L IPID, T4, TSH, FT3, CMP #### [facility] [address] [address] [address] Maggy Irving WBC 4.8 103/ul Normal 4.0-11.0 [facility] Comment on above: Performed By: #### L IPID, T4, TSH, FT3, CMP #### [facility] [address] [place] [address] Dr. Maggy Irving FREE T3on 04-09-2022 FREE T3 3.15 pg/mlL Normal 2.18-3.98 [facility] Comment on above: Performed By: #### L IPID, T4, TSH, FT3, CMP #### [facility] [address] [place] [address] Dr. Maggy Irving GLYCOHEMOGLOBIN A1Con 2021 ADA RECOMMENDATION SEE BELOW Normal [facility] Comment on above: Result Comment: ADA RECOMMENDED LIMIT 4.0 - 6.0 ADA THERAPEUTIC TARGET < 7.0 ACTION SUGGESTED > 7.0 Performed By: #### L IPID, T4, TSH, FT3, CMP #### [facility] [address] [address] [address] Maggy Irving Glucose [Mass/Vol] 123 mg/dL Normal [facility] Comment on above: Performed By: #### L IPID, T4, TSH, FT3, CMP #### [facility] [address] [address] [address] Maggy Irving HbA1c (Bld) [Mass fraction] 5.9 % Normal 4.5-6.2 [facility] Comment on above: Performed By: #### L IPID, T4, TSH, FT3, CMP #### [facility] [address] [place] [address] Dr. Maggy Irving LIPID PROFILEon 04-09-2022 CHOL-HDL RATIO NORM SEE BELOW Normal [facility] Comment on above: Result Comment: 3.3 - 4.4 LOW RISK 4.4 - 7.1 AVERAGE RISK 7.1 - 11.0 MODERATE RISK >11.0 HIGH RISK Performed By: #### L IPID, T4, TSH, FT3, CMP #### [facility] [address] [address] [address] Maggy Irving Cholesterol [Mass/Vol] 174 mg/dL Normal <=200 [facility] Comment on above: Performed By: #### L IPID, T4, TSH, FT3, CMP #### [facility] [address] [address] [address] Maggy Irving Cholesterol in HDL [Mass/Vol] 36 mg/dL Critically low 40-60 [facility] Comment on above: Performed By: #### L IPID, T4, TSH, FT3, CMP #### [facility] [address] [address] [address] Maggy Irving Cholesterol in LDL [Mass/Vol] 114.4 mg/dL Normal [facility] Comment on above: Performed By: #### L IPID, T4, TSH, FT3, CMP #### [facility] [address] [place] [address] Dr. Maggy Irving Cholesterol.total/Cho lesterol in HDL [Mass ratio] 4.8 {ratio} Normal [facility] Comment on above: Performed By: #### L IPID, T4, TSH, FT3, CMP #### [facility] [address] [address] [address] Maggy Irivng HDL NORMAL > or = 60 mg/dl - LO W CARDIOVASCULAR RISK <40 mg/dl - HIGH CARDIOVASCULAR RISK Normal [facility] Comment on above: Performed By: #### L IPID, T4, TSH, FT3, CMP #### [facility] [address] [place] [address] Dr. Maggy Irving LDL CALC NORMAL SEE BELOW Normal [facility] Comment on above: Result Comment: <100 mg/dl OPTIMAL 100 - 129 mg/dl NEAR OR ABOVE OPTIMAL 130 - 159 mg/dl BORDERLINE HIGH 160 - 189 mg/dl HIGH >190 mg/dl VERY HIGH Performed By: #### L IPID, T4, TSH, FT3, CMP #### [facility] [address] [place] [address] Dr. Maggy Irving Triglyceride [Mass/Vol] 118 mg/dL Normal <=150 [facility] Comment on above: Performed By: #### L IPID, T4, TSH, FT3, CMP #### [facility] [address] [place] [address] Dr. Maggy Irving VLDL CALC 23.6 mg/dL Normal [facility] Comment on above: Performed By: #### L IPID, T4, TSH, FT3, CMP #### [facility] [address] [place] [address] Dr. Maggy Irving OCC BLD IMMUNO SCREENon 03-20 OCCULT BLOOD Negative Normal NEGATIVE [facility] Comment on above: Performed By: #### O BSCRN #### [facility] [address] [place] [address] Dr. Maggy Irving PROF 14(COMP METB)on 022 Albumin [Mass/Vol] 3.6 g/dL Normal 3.4-5.0 [facility] Comment on above: Performed By: #### L IPID, T4, TSH, FT3, CMP #### [facility] [address] [place] [address] Dr. Maggy Irving Albumin/Globulin [Mass ratio] 1.1 {ratio} Normal [facility] Comment on above: Performed By: #### L IPID, T4, TSH, FT3, CMP #### [facility] [address] [place] [address] Dr. Maggy Irving ALP [Catalytic activity/Vol] 47 U/L Normal 46-116 [facility] Comment on above: Performed By: #### L IPID, T4, TSH, FT3, CMP #### [facility] [address] [place] [address] Dr. Maggy Irving ALT [Catalytic activity/Vol] 31 U/L Normal 16-63 [facility] Comment on above: Performed By: #### L IPID, T4, TSH, FT3, CMP #### [facility] [address] [address] [address] Maggy Irving Anion gap [Moles/Vol] 10.2 mmol/L Normal [facility] Comment on above: Performed By: #### L IPID, T4, TSH, FT3, CMP #### [facility] [address] [address] [address] Maggy Irving AST [Catalytic activity/Vol] 17 U/L Normal 15-37 [facility] Comment on above: Performed By: #### L IPID, T4, TSH, FT3, CMP #### [facility] [address] [place] [address] Dr. Maggy Irving Bilirubin [Mass/Vol] 0.6 mg/dL Normal 0.2-1.0 [facility] Comment on above: Performed By: #### L IPID, T4, TSH, FT3, CMP #### [facility] [address] [place] [address] Dr. Maggy Irving Calcium [Mass/Vol] 8.1 mg/dL Critically low 8.5-10.1 [facility] Comment on above: Performed By: #### L IPID, T4, TSH, FT3, CMP #### [facility] [address] [place] [address] Dr. Maggy Irving Chloride [Moles/Vol] 105 mmol/L Normal 98-107 [facility] Comment on above: Performed By: #### L IPID, T4, TSH, FT3, CMP #### [facility] [address] [place] [address] Dr. Maggy Irving CO2 [Moles/Vol] 29.6 mmol/L Normal 21.0-32.0 [facility] Comment on above: Performed By: #### L IPID, T4, TSH, FT3, CMP #### [facility] [address] [place] [address] Dr. Maggy Irving Creatinine [Mass/Vol] 0.89 mg/dL Normal 0.70-1.30 [facility] Comment on above: Performed By: #### L IPID, T4, TSH, FT3, CMP #### [facility] [address] [address] [address] Maggy Irving EGFR-AF SLOVAK >60 Normal >=60 [facility] Comment on above: Performed By: #### L IPID, T4, TSH, FT3, CMP #### [facility] [address] [address] [address] Maggy Irving EGFR-NON AF SLOVAK >60 Normal >=60 [facility] Comment on above: Performed By: #### L IPID, T4, TSH, FT3, CMP #### [facility] [address] [address] [address] Maggy Irving Globulin (S) [Mass/Vol] 3.2 g/dL Normal [facility] Comment on above: Performed By: #### L IPID, T4, TSH, FT3, CMP #### [facility] [address] [place] [address] Dr. Maggy Irving Glucose [Mass/Vol] 110 mg/dL Critically high 74-106 [facility] Comment on above: Performed By: #### L IPID, T4, TSH, FT3, CMP #### [facility] [address] [place] [address] Dr. Maggy Irving Potassium [Moles/Vol] 3.8 mmol/L Normal 3.5-5.1 [facility] Comment on above: Performed By: #### L IPID, T4, TSH, FT3, CMP #### [facility] [address] [address] [address] Maggy Irving Protein [Mass/Vol] 6.8 g/dL Normal 6.4-8.2 [facility] Comment on above: Performed By: #### L IPID, T4, TSH, FT3, CMP #### [facility] [address] [place] [address] Dr. Maggy Irving Sodium [Moles/Vol] 141 mmol/L Normal 136-145 [facility] Comment on above: Performed By: #### L IPID, T4, TSH, FT3, CMP #### [facility] [address] [address] [address] Maggy Irving Urea nitrogen [Mass/Vol] 17.0 mg/dL Normal 7.0-18.0 [facility] Comment on above: Performed By: #### L IPID, T4, TSH, FT3, CMP #### [facility] [address] [address] [address] Maggy Irving Urea nitrogen/Creatinine [Mass ratio] 19.1 mg/mg Normal [facility] Comment on above: Performed By: #### L IPID, T4, TSH, FT3, CMP #### [facility] [address] [address] [address] Maggy Irving T4on 04-09-2022 T4 [Mass/Vol] 7.90 ug/dL Normal 4.50-12.10 [facility] Comment on above: Performed By: #### L IPID, T4, TSH, FT3, CMP #### [facility] [address] [address] [address] Maggy Irving TSHon 04-09-2022 TSH 4.949 uIU/mL Critically high 0.358-3.740 [facility] Comment on above: Performed By: #### L IPID, T4, TSH, FT3, CMP #### [facility] [address] [address] [address] Maggy Irving Vital Signs Date Time Vital Sign Value Performing Clinician Faci lity 04-06-2024 09:43-0400 Body height 177.8 cm [facility] 04-06-2024 09:43-0400 Body mass index (BMI) [Ratio] 34.4 kg/m2 [facility] 04-06-2024 09:43-0400 Body temperature 98.3 [degF] [facility] 04-06-2024 09:43-0400 Body weight 109.08 kg [facility] 04-06-2024 09:43-0400 Diastolic blood pressure 78 mm[Hg] [facility] 04-06-2024 09:43-0400 Heart rate 87 /min [facility] 04-06-2024 09:43-0400 Respiratory rate 18 /min [facility] 04-06-2024 09:43-0400 SaO2% (BldA) [Mass fraction] 96 % [facility] 04-06-2024 09:43-0400 Systolic blood pressure 146 mm[Hg] [facility] Encounters Encounter Date Encounter Type Care Provider Facility Start: 04-06-2024 End: 04-06-2024 ambulatory [facility] Work Phone: Start: 04-06-2024 End: 04-06-2024 Patient encounter procedure [facility] Work Phone: Start: 02-10-2023 End: 02-11-2023 ambulatory IVELISSE ORNELAS Facility:[facility] Start: 02-07-2023 End: 02-07-2023 ambulatory IVELISSE ORNELAS Facility:[facility] Start: 02-06-2023 Encounter for preprocedural laboratory examination IVELISSE ORNELAS [facility] Start: 01-31-2023 End: 02-01-[address] MARCELLA GROSS . Facility:[facility] Start: 01-31-2023 End: 02-01-2023 Encounter for preprocedural laboratory examination DR MARCELLA GROSS . Facility:[facility] Start: 01-25-2023 End: 01-26-[address] MARCELLA GROSS . Facility:[facility] Start: 01-07-2023 End: 01-08-[address] MARCELLA GROSS . Facility:[facility] Start: 01-03-2023 End: 01-04-[address] MARCELLA GROSS . Facility:[facility] Start: 12-28-2022 End: 12-29-[address] MARCELLA GROSS . Facility:[facility] Start: 12-21-2022 End: 12-22-[address] MARCELLA GROSS . Facility:[facility] Start: 12-07-2022 End: 12-08-[address] MARCELLA GROSS . Facility:[facility] Start: 04-28-2022 ambulatory IVELISSE ORNELAS Faci lity:[facility] Start: 04-09-2022 End: 04-10-[address] MARCELLA GROSS . Facility:[facility] Procedures Date Procedure Procedure Detail Performing Clinician Start: 04-09-[address] NATHAN GROSS . Comment on above: Performed By: #### L IPID, T4, TSH, FT3, CMP #### [facility] [address] [place] [address] Dr. Maggy Irving Payers Date Payer Category Payer Medicare [id number] 1957 Unknown [id number] 1950 Unknown [id number] 2.16.84 [id number] 1950 Unknown [id number] 2.16.84 0.1.942950.3.579.2.593 1950 Unknown [id number] 2.16.84 0.1.173007.3.579.2.593 1952 Unknown [id number] 2.16.84 0.1.189701.3.579.2.593 1952 Unknown [id number] 2.16.84 0.1.286555.3.579.2.593 1952 Unknown [id number] 2.16.84 0.1.092811.3.579.2.593 1952 Unknown [id number] 2.16.84 0.1.593498.3.579.2.593 1952 Unknown [id number] 2.16.84 0.1.018832.3.579.2.593 1952 Unknown [id number] 2.16.84 0.1.179243.3.579.2.593 1952 Unknown [id number] 2.16.84 0.1.657064.3.579.2.593 1952 Unknown [id number] 2.16.84 0.1.775047.3.579.2.593 Medicare Medicare [id number] 063 [id number] Social History Date Type Detail Facility [facility] Work Phone: Start: 1950 Sex Assigned At Male F [facility] Clinical Note 02-07-2023 Note Date & Type Note Facility 02-07-2023 Note PROCEDURE: XR FOOT R T MIN 3 VIEWS HISTORY: Postoperative visit COMPARISON: XR foot bilateral 04/07/2021 FINDINGS: BONES: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 Degenerative enthesopathic spurring at the Achilles tendon insertion. SOFT TISSUES:Soft tissue swelling of the forefoot. EFFUSION:None visible. OTHER: Negative. IMPRESSION: 1. Post amputation appearance of the fifth metatarsal and soft tissue swelling. Electronically authenticated by: OLVIN KHANNA Date: 2023-02-07 09:41 [facility] Evaluation note Note Date & Type Note Facility Evaluation note Diagnosis Onset Date Bacterial conjunctivitis of right eye acute [facility] Work Phone: Summary Purpose Family History Relationship Condition Age at Onset Recorded Date/T cornelia father Unknown mother History of stroke Unknown Unknown Advance Directives Advance Directive Response Recorded Date/ Time Advance Directives No April 06 9:22am Chief Complaint and Reason for Visit Chief Complaint poss pink eye right Reason for Visit Bacterial conjunctiv itis of right eye Additional Source Comments (unrecognized sect ion and content) No Status Records Found INFORMATION SOURCE (unrecogn ized section and content) DATE CREATED AUTHOR 02/25/2023 [facility] Care Teams (unrecognized sec tion and content) Team Status: Active Member Role Status Dates Marcella Gross MD Primary Care Provider Active Team Status: Inactive Member Role Status Dates Marcella Gross MD Primary Care Provider Active Start: April 06, 2024 End: April 06, 2024 Ramona Mcgill APRN Attending Provider Active Start: April 06, 2024 End: April 06, 2024 Goals (unrecognized section and content) Goals may be documented in a n alternate section FOR RECORDS PERTAINING TO PATIENTS WHO ARE OR HAVE BEEN ENROLLED IN A CHEMICAL DEPENDENCY/SUBSTANCEABUSE PROGRAM, SOME INFORMATION MAY BE OMITTED. This clinical summary was aggregated from multiple sources. Caution should be exercised in using it in the provision of clinical care. This summary normalizes information from multiple sources, and as a consequence, information in this document may materially change the coding, format and clinical context of patient data. In addition, data may be omitted in some cases. CLINICAL DECISIONS SHOULD BE BASED ON THE PRIMARY CLINICAL RECORDS. [facility] [employer] [facility]. provides no warranty or guarantee of the accuracy or completeness of information in this document.
[2024-04-23 07:39] LABS: Basophils Percent Auto 0.3 % (0.2-2.0); Eosinophils Absolute Auto 0.1 10^3/uL (0.0-0.7); Eosinophils Percent Auto 2.8 % (0.9-7.0); Hematocrit 40.1 % (42.0-54.0); Hemoglobin 14.3 g/dL (14.0-18.0); Immature Granulocytes Abs Auto 0.02 10^3/uL (0.00-0.03); Immature Granulocytes Pct Auto 0.5 % (0.0-0.5); Lymphocytes Absolute Auto 0.9 10^3/uL (1.2-3.8); Lymphocytes Percent Auto 22.1 % (20.5-60.0); Mean Corpuscular HGB Conc 35.7 g/dL (29.9-35.2); Mean Corpuscular Hemoglobin 31.6 pg (25.9-34.0); Mean Corpuscular Volume 88.5 fL (80.0-94.0); Mean Platelet Volume 10.1 fL (9.5-13.5); Monocytes Absolute Auto 0.4 10^3/uL (0.3-0.8); Monocytes Percent Auto 9.1 % (1.7-12.0); Neutrophils Absolute Auto 2.6 10^3/uL (1.4-6.5); Neutrophils Percent Auto 65.2 % (43.0-75.0); Platelet Count 117 10^3/uL (150-450); Red Blood Count 4.53 10^6/uL (4.70-6.10); Red Cell Distribution Width 11.9 % (11.0-15.0); White Blood Count 3.9 10^3/uL (4.0-11.0)
[2024-04-23 07:50] LABS: Estimated Average Glucose 114 mg/dL; Glycohemoglobin A1C 5.6 % (4.5-6.2)
[2024-04-23 08:32] LABS: Alanine Aminotransferase 59 U/L (16-63); Albumin Globulin Ratio 1.1; Albumin Level 3.6 g/dL (3.4-5.0); Alkaline Phosphatase 58 U/L (46-116); Anion Gap 11.2; Aspartate Amino Transferase 23 U/L (15-37); BUN Creatinine Ratio 17.5; Bilirubin Total 0.6 mg/dL (0.2-1.0); Calcium 8.6 mg/dL (8.5-10.1); Carbon Dioxide 29.9 mmol/L (21.0-32.0); Chloride 104 mmol/L (98-107); Chol HDL Ratio 4.4; Cholesterol 185 mg/dL (<=200); Estimated GFR (African America >60 (>=60); Estimated GFR (Non-African Ame >60 (>=60); Free T3 2.86 pg/mL (2.18-3.98); Globulin 3.3 g/dL; Glucose 112 mg/dL (74-106); HDL Cholesterol 42 mg/dL (40-60); Potassium 4.1 mmol/L (3.5-5.1); Sodium 141 mmol/L (136-145); Thyroid Stimulating Hormone 2.613 uIU/mL (0.358-3.740); Total Protein 6.9 g/dL (6.4-8.2); Triglycerides 189 mg/dL (<=150); VLDL CHOLESTEROL 37.8 mg/dL
[2024-04-23 08:42] LABS: Prostate Specific Antigen Scrn 3.24 ng/mL (<=4.00)
[2024-04-23 15:06] LABS: Internal Control Within Normal Limits; Occult Blood Negative
== END 2024-04-23 07:06 | disposition home or self-care (01) ==
PROVIDERS: PCP Family Medicine; Visit Provider Family Medicine
DX: S92.405A Nondisplaced unspecified fracture of left great toe, initial encounter for closed fracture (principal); Z12.5 Encounter for screening for malignant neoplasm of prostate; R06.09 Other forms of dyspnea; E78.5 Hyperlipidemia, unspecified; R73.09 Other abnormal glucose; Z12.12 Encounter for screening for malignant neoplasm of rectum
CPT/HCPCS: 36415; 80053; 80061; 83036; 84436; 84443; 84481; 85025; G0103; G0328

== ENCOUNTER 2024-04-27 07:01 | Outpatient (OUT) | payer MEDICARE, OTHER, SELFPAY ==
--- OUTSIDE RECORDS SUMMARY | 2024-04-27 07:07 | XMS_ITS | CCD ---
Author Organization [facility] Care Team Providers Care Asphalt Tamper Name Role Phone CHEIKH ., DR NARANJO [...] 04-06-2024 Episodic Other aftercare (1 source) Other residential (current) drug therapy; Translations: [OTH CUSTODIAL CURRENT DRUG THERAPY] Onset: 02-16-2023 Episodic Other [...] Trimethoprim/Sulfamet hoxazole <=10 S F Normal [facility] Comment on above: Performed By: #### L IPID, T4, TSH, FT3, CMP #### [facility] [address] [place] [address] Dr. Maggy Irving FUNGAL CULTUREon 02-09-2023 Fungus Stain Final report Normal [facility] Comment on above: Performed By: #### L IPID, T4, TSH, FT3, CMP #### [facility] [address] [place] [address] Dr. Maggy Irving Result 1 Comment Normal [facility] Comment on above: Result Comment: SUDHIR/ Calcofluor preparation: no fungus observed. Performed By: #### L IPID, T4, TSH, FT3, CMP #### [facility] [address] [place] [address] Dr. Maggy Irving ACID FAST SMEAR AND CXon Acid Fast Smear Negative Normal [facility] Comment on above: Performed By: #### A FB #### [facility] [address] [place] [address] Dr. Maggy Irving [employer] Specimen Processing Tissue Grinding [facility] Comment on above: Performed By: #### A FB #### [facility] [address] [place] [address] Dr. Maggy Irving CULTURE ANAEROBICon 02-08-20 CULTURE ANAEROBIC Isolate 1 Finedottyldia magna Light growth of Normal [facility] Comment on above: Result Comment: EVID ENCE BASED PRACTICE BY [facility] HAS DEMONSTRATED THAT FINEGOLDIA SPECIES ARE ROUTINELY SUSCEPTIBLE TO PIPERACILLIN-TAZOBACTAM, CEFOXITIN, ERTAPENEM, IMIPENEM METRONIDAZOLE AND VARIABLY RESISTANT TO CLINDAMYCIN. Performed By: #### L IPID, T4, TSH, FT3, CMP #### [facility] [address] [place] [address] Dr. Maggy MENDOZA STAINon 02-07-2023 COMMENTS NO ORGANISMS OBSERVED Normal [facility] Comment on above: Performed By: #### G STAIN #### [facility] [address] [place] [address] Dr. Maggy Irving DIPHTHEROIDS Normal [facility] Comment on above: Performed By: #### G STAIN #### [facility] [address] [place] [address] Dr. Maggy Irving EPITHELIALS Normal [facility] Comment on above: Performed By: #### G STAIN #### [facility] [address] [place] [address] Dr. Maggy Irving FUNGAL ELEMENTS Normal [facility] Comment on above: Performed By: #### G STAIN #### [facility] [address] [place] [address] Dr. Maggy MENDOZA NEG BACILLI Normal [facility] Comment on above: Performed By: #### G STAIN #### [facility] [address] [place] [address] Dr. Maggy MENDOZA NEG DIPPLOCOCCI Normal [facility] Comment on above: Performed By: #### G STAIN #### [facility] [address] [place] [address] Dr. Maggy MENDOZA POS BACILLI Normal [facility] Comment on above: Performed By: #### G STAIN #### [facility] [address] [place] [address] Dr. Maggy Irving GRAM POSITIVE COCCI Normal [facility] Comment on above: Performed By: #### G STAIN #### [facility] [address] [place] [address] Dr. Maggy Irving GRAM STAIN SOURCE 5th Metatarsal Bone Normal [facility] Comment on above: Performed By: #### G STAIN #### [facility] [address] [place] [address] Dr. Maggy Irving GS_DIPTH Normal [facility] Comment on above: Performed By: #### G STAIN #### [facility] [address] [address] [address] Maggy Irving WBC RARE Normal [facility] Comment on above: Performed By: #### G STAIN #### [facility] [address] [address] [address] Maggy Irving POINT OF CARE GLUCOSEon 01-18 Glucose [Mass/Vol] 114 mg/dL Critically high 74-106 [facility] Comment on above: Performed By: #### P OCGLUC #### [facility] [address] [address] [address] Maggy Irving Glucose [Mass/Vol] 122 mg/dL Critically high -106 [facility] Comment on above: Performed By: #### P OCGLUC #### [facility] [address] [place] [address] Dr. Maggy Irving PROF CHEM 8 (BAS METB)on Anion gap [Moles/Vol] 12.0 mmol/L Normal [facility] Comment on above: Performed By: #### L IPID, T4, TSH, FT3, CMP #### [facility] [address] [place] [address] Dr. Maggy Irving Calcium [Mass/Vol] 8.7 mg/dL Normal 8.5-10.[address] [facility] Comment on above: Performed By: #### L IPID, T4, TSH, FT3, CMP #### [facility] [address] [address] [address] Maggy Irving Chloride [Moles/Vol] 104 mmol/L Normal 98-107 [facility] Comment on above: Performed By: #### L IPID, T4, TSH, FT3, CMP #### [facility] [address] [place] [address] Dr. Maggy Irving CO2 [Moles/Vol] 28.1 mmol/L Normal 21.0-32.0 [facility] Comment on above: Performed By: #### L IPID, T4, TSH, FT3, CMP #### [facility] [address] [address] [address] Maggy Irving Creatinine [Mass/Vol] 0.80 mg/dL Normal 0.70-1.30 [facility] Comment on above: Performed By: #### L IPID, T4, TSH, FT3, CMP #### [facility] [address] [address] [address] Maggy Irving EGFR-AF EMIRATI >60 Normal >=60 [facility] Comment on above: Performed By: #### L IPID, T4, TSH, FT3, CMP #### [facility] [address] [place] [address] Dr. Maggy Irving EGFR-NON AF EMIRATI >60 Normal >=60 [facility] Comment on above: Performed By: #### L IPID, T4, TSH, FT3, CMP #### [facility] [address] [place] [address] Dr. Maggy Irving Glucose [Mass/Vol] 129 mg/dL Critically high 74-106 [facility] Comment on above: Performed By: #### L IPID, T4, TSH, FT3, CMP #### [facility] [address] [address] [address] Maggy Irving Potassium [Moles/Vol] 4.1 mmol/L Normal 3.5-5.1 [facility] Comment on above: Performed By: #### L IPID, T4, TSH, FT3, CMP #### [facility] [address] [place] [address] Dr. Maggy Irving Sodium [Moles/Vol] 140 mmol/L Normal 136-[address] [facility] Comment on above: Performed By: #### L IPID, T4, TSH, FT3, CMP #### [facility] [address] [place] [address] Dr. Maggy Irving Urea nitrogen [Mass/Vol] 20.0 mg/dL Critically high 7.0-18.0 [facility] Comment on above: Performed By: #### L IPID, T4, TSH, FT3, CMP #### [facility] [address] [place], [place] [id number] Dr. Maggy Irving Urea nitrogen/Creatinine [Mass ratio] 25.0 mg/mg Normal [facility] Comment on above: Performed By: #### L IPID, T4, TSH, FT3, CMP #### [facility] [address] [place] [address] Dr. Maggy Irving FREE T3on 01-07-2023 FREE T3 3.24 pg/mlL Normal 2.18-3.98 [facility] Comment on above: Performed By: #### L IPID, T4, TSH, FT3, CMP #### [facility] [address] [place] [address] Dr. Maggy Irvign T4on 01-07-2023 T4 [Mass/Vol] 9.10 ug/dL Normal 4.50-12.10 [facility] Comment on above: Performed By: #### L IPID, T4, TSH, FT3, CMP #### [facility] [address] [place] [address] Dr. Maggy Irving TSHon 01-07-2023 TSH 5.957 uIU/mL Critically high 0.358-3.[address] [facility] Comment on above: Performed By: #### L IPID, T4, TSH, FT3, CMP #### [facility] [address] [place] [address] Dr. Maggy Irving NM STRESS/REST MULTIon 01-03 NM STRESS/REST MULTI Patient: SILVINO MARVINSebas Exam Date: 01/03/2023 : 1950 Gender:M Ordering : DR MARCELLA GROSS . Admission #: [id number] Family : Order #: [id number] CLICK HERE TO VIEW EXAM RADIOLOGY REPORT [...] Khanna M.D. on 01/04/2023 at 07:45 Normal [facility] ECHOCARDIO M/2D COMPLETEon 0 12-21-2022 ECHOCARDIO M/2D COMPLETE Patient: SILVINO MARVIN Exam Date: 12/21/2022 : 1950 Gender:M Ordering : DR MARCELLA GROSS . Admission #: [id number] Family : Order #: [id number] CLICK HERE TO VIEW EXAM ECHOCARDIOGRAM REPORT [...] M.D. on 12/23/2022 at 18:05 Normal [facility] BNPon 12-07-2022 Natriuretic peptide B (Bld) [Mass/Vol] 37.0 pg/mL Normal <=900.0 [facility] Comment on above: Performed By: #### L IPID, T4, TSH, FT3, CMP #### [facility] [address] [place] [address] Dr. Maggy Irving CBC AUTO DIFFon 12-07-2022 BASO # 0.0 103/ul Normal 0.0-0.1 [facility] Comment on above: Performed By: #### L IPID, T4, TSH, FT3, CMP #### [facility] [address] [place] [address] Dr. Maggy Irving Basophils/100 WBC (Bld) 0.2 % Normal 0.2-2.0 [facility] Comment on above: Performed By: #### L IPID, T4, TSH, FT3, CMP #### [facility] [address] [place] [address] Dr. Maggy Irving EO # 0.2 103/ul Normal 0.0-0.7 [facility] Comment on above: Performed By: #### L IPID, T4, TSH, FT3, CMP #### [facility] [address] [place] [address] Dr. Maggy Irving Eosinophils/100 WBC (Bld) 3.7 % Normal 0.9-7.0 [facility] Comment on above: Performed By: #### L IPID, T4, TSH, FT3, CMP #### [facility] [address] [place] [address] Dr. Maggy Irving Erythrocyte distribution width (RBC) [Ratio] 11.9 % Normal 11.0-15.0 [facility] Comment on above: Performed By: #### L IPID, T4, TSH, FT3, CMP #### [facility] [address] [place] [address] Dr. Maggy Irving Hematocrit (Bld) [Volume fraction] 39.7 % Critically low 42.0-54.0 [facility] Comment on above: Performed By: #### L IPID, T4, TSH, FT3, CMP #### [facility] [address] [place] [address] Dr. Maggy Irving Hemoglobin (Bld) [Mass/Vol] 14.0 g/dL Normal 14.0-18.0 [facility] Comment on above: Performed By: #### L IPID, T4, TSH, FT3, CMP #### [facility] [address] [place] [address] Dr. Maggy Irving IG # 0.02 10e3/ul Normal 0.00-0.03 [facility] Comment on above: Performed By: #### L IPID, T4, TSH, FT3, CMP #### [facility] [address] [place] [address] Dr. Maggy Irving IG % 0.5 % Normal 0.0-0.5 [facility] Comment on above: Performed By: #### L IPID, T4, TSH, FT3, CMP #### [facility] [address] [place] [address] Dr. Maggy Irving LYMPH # 0.9 103/ul Critically low 1.2-3.8 [facility] Comment on above: Performed By: #### L IPID, T4, TSH, FT3, CMP #### [facility] [address] [place] [address] Dr. Maggy Irving Lymphocytes/100 WBC (Bld) 21.1 % Normal 20.5-60.0 [facility] Comment on above: Performed By: #### L IPID, T4, TSH, FT3, CMP #### [facility] [address] [place] [address] Dr. Maggy Irving MANUAL DIFF REQ NO Normal [facility] Comment on above: Performed By: #### L IPID, T4, TSH, FT3, CMP #### [facility] [address] [place] [address] Dr. Maggy Irving MCH (RBC) [Entitic mass] 30.5 pg Normal 25.9-34.0 [facility] Comment on above: Performed By: #### L IPID, T4, TSH, FT3, CMP #### [facility] [address] [place] [address] Dr. Maggy Irving MCHC (RBC) [Mass/Vol] 35.3 g/dL Critically high 29.9-35.2 [facility] Comment on above: Performed By: #### L IPID, T4, TSH, FT3, CMP #### [facility] [address] [place] [address] Dr. Maggy Irving MCV (RBC) [Entitic vol] 86.5 fL Normal 80.0-94.0 [facility] Comment on above: Performed By: #### L IPID, T4, TSH, FT3, CMP #### [facility] [address] [place] [address] Dr. Maggy Irving MONO # 0.4 103/ul Normal 0.3-0.8 [facility] Comment on above: Performed By: #### L IPID, T4, TSH, FT3, CMP #### [facility] [address] [place] [address] Dr. Maggy Irving Monocytes/100 WBC (Bld) 8.7 % Normal 1.7-12.0 [facility] Comment on above: Performed By: #### L IPID, T4, TSH, FT3, CMP #### [facility] [address] [place] [address] Dr. Maggy Irving NEUT # 2.9 103/ul Normal 1.4-6.5 [facility] Comment on above: Performed By: #### L IPID, T4, TSH, FT3, CMP #### [facility] [address] [address] [address] Maggy Irving Neutrophils/100 WBC (Bld) 65.8 % Normal 43.0-75.0 [facility] Comment on above: Performed By: #### L IPID, T4, TSH, FT3, CMP #### [facility] [address] [address] [address] Maggy Irving Platelet mean volume (Bld) [Entitic vol] 9.9 fL Normal 9.5-13.5 [facility] Comment on above: Performed By: #### L IPID, T4, TSH, FT3, CMP #### [facility] [address] [place] [address] Dr. Maggy Irving PLT 128 103/ul Critically low 150-450 [facility] Comment on above: Performed By: #### L IPID, T4, TSH, FT3, CMP #### [facility] [address] [place] [address] Dr. Maggy Irving RBC 4.59 106/ul Critically low 4.70-6.10 [facility] Comment on above: Performed By: #### L IPID, T4, TSH, FT3, CMP #### [facility] [address] [place] [address] Dr. Maggy rIving WBC 4.4 103/ul Normal 4.0-11.0 [facility] Comment on above: Performed By: #### L IPID, T4, TSH, FT3, CMP #### [facility] [address] [place] [address] Dr. Maggy Irving FREE THYROXINE INDEX T7on FTI 2.72 Normal 1.30-4.50 [facility] Comment on above: Performed By: #### L IPID, T4, TSH, FT3, CMP #### [facility] [address] [place] [address] Dr. Maggy Irving T3U 34.0 % Normal 33.0-40.0 [facility] Comment on above: Performed By: #### L IPID, T4, TSH, FT3, CMP #### [facility] [address] [place] [address] Dr. Maggy Irving T4 [Mass/Vol] 8.00 ug/dL Normal 4.50-12.10 [facility] Comment on above: Performed By: #### L IPID, T4, TSH, FT3, CMP #### [facility] [address] [place] [address] Dr. Maggy Irving IRONon 12-07-2022 Iron [Mass/Vol] 134.0 ug/dL Normal 65.0-175.0 [facility] Comment on above: Performed By: #### L IPID, T4, TSH, FT3, CMP #### [facility] [address] [place] [address] Dr. Maggy Irving LIPID PROFILEon 12-07-2022 CHOL-HDL RATIO NORM SEE BELOW Normal [facility] Comment on above: Result Comment: 3.3 - 4.4 LOW RISK 4.4 - 7.1 AVERAGE RISK 7.1 - 11.0 MODERATE RISK >11.0 HIGH RISK Performed By: #### L IPID, T4, TSH, FT3, CMP #### [facility] [address] [place] [address] Dr. Maggy Irving Cholesterol [Mass/Vol] 180 mg/dL Normal <=200 [facility] Comment on above: Performed By: #### L IPID, T4, TSH, FT3, CMP #### [facility] [address] [place] [address] Dr. Maggy Irving Cholesterol in HDL [Mass/Vol] 37 mg/dL Critically low 40-60 [facility] Comment on above: Performed By: #### L IPID, T4, TSH, FT3, CMP #### [facility] [address] [place] [address] Dr. Maggy Irving Cholesterol in LDL [Mass/Vol] 95.2 mg/dL Normal [facility] Comment on above: Performed By: #### L IPID, T4, TSH, FT3, CMP #### [facility] [address] [address] [address] Maggy Irving Cholesterol.total/Cho lesterol in HDL [Mass ratio] 4.9 {ratio} Normal [facility] Comment on above: Performed By: #### L IPID, T4, TSH, FT3, CMP #### [facility] [address] [address] [address] Maggy Irving HDL NORMAL > or = 60 mg/dl - LO W CARDIOVASCULAR RISK <40 mg/dl - HIGH CARDIOVASCULAR RISK Normal [facility] Comment on above: Performed By: #### L IPID, T4, TSH, FT3, CMP #### [facility] [address] [address] [address] Maggy Irving LDL CALC NORMAL SEE BELOW Normal [facility] Comment on above: Result Comment: <100 mg/dl OPTIMAL 100 - 129 mg/dl NEAR OR ABOVE OPTIMAL 130 - 159 mg/dl BORDERLINE HIGH 160 - 189 mg/dl HIGH >190 mg/dl VERY HIGH Performed By: #### L IPID, T4, TSH, FT3, CMP #### [facility] [address] [address] [address] Maggy Irving Triglyceride [Mass/Vol] 239 mg/dL Critically high <=150 [facility] Comment on above: Performed By: #### L IPID, T4, TSH, FT3, CMP #### [facility] [address] [address] [address] Maggy Irving VLDL CALC 47.8 mg/dL Normal [facility] Comment on above: Performed By: #### L IPID, T4, TSH, FT3, CMP #### [facility] [address] [address] [address] Maggy Irving PROF 14(COMP METB)on 023 Albumin [Mass/Vol] 3.8 g/dL Normal 3.4-5.[address] [facility] Comment on above: Performed By: #### L IPID, T4, TSH, FT3, CMP #### [facility] [address] [address] [address] Maggy Irving Albumin/Globulin [Mass ratio] 1.1 {ratio} Normal [facility] Comment on above: Performed By: #### L IPID, T4, TSH, FT3, CMP #### [facility] [address] [place] [address] Dr. Maggy Irving ALP [Catalytic activity/Vol] 53 U/L Normal 46-116 [facility] Comment on above: Performed By: #### L IPID, T4, TSH, FT3, CMP #### [facility] [address] [place] [address] Dr. Maggy Irving ALT [Catalytic activity/Vol] 43 U/L Normal 16-63 [facility] Comment on above: Performed By: #### L IPID, T4, TSH, FT3, CMP #### [facility] [address] [place] [address] Dr. Maggy Irving Anion gap [Moles/Vol] 12.2 mmol/L Normal [facility] Comment on above: Performed By: #### L IPID, T4, TSH, FT3, CMP #### [facility] [address] [place] [address] Dr. Maggy Irving AST [Catalytic activity/Vol] 22 U/L Normal 15-37 [facility] Comment on above: Performed By: #### L IPID, T4, TSH, FT3, CMP #### [facility] [address] [place] [address] Dr. Maggy Irving Bilirubin [Mass/Vol] 0.6 mg/dL Normal 0.2-1.0 [facility] Comment on above: Performed By: #### L IPID, T4, TSH, FT3, CMP #### [facility] [address] [place] [address] Dr. Maggy Irving Calcium [Mass/Vol] 8.9 mg/dL Normal 8.5-10.[address] [facility] Comment on above: Performed By: #### L IPID, T4, TSH, FT3, CMP #### [facility] [address] [place] [address] Dr. Maggy Irving Chloride [Moles/Vol] 104 mmol/L Normal 98-107 [facility] Comment on above: Performed By: #### L IPID, T4, TSH, FT3, CMP #### [facility] [address] [place] [address] Dr. Maggy Irving CO2 [Moles/Vol] 28.8 mmol/L Normal 21.0-32.0 [facility] Comment on above: Performed By: #### L IPID, T4, TSH, FT3, CMP #### [facility] [address] [place] [address] Dr. Maggy Irving Creatinine [Mass/Vol] 0.83 mg/dL Normal 0.70-1.30 [facility] Comment on above: Performed By: #### L IPID, T4, TSH, FT3, CMP #### [facility] [address] [place] [address] Dr. Maggy Irving EGFR-AF EMIRATI >60 Normal >=60 [facility] Comment on above: Performed By: #### L IPID, T4, TSH, FT3, CMP #### [facility] [address] [place] [address] Dr. Maggy Irving EGFR-NON AF EMIRATI >60 Normal >=60 [facility] Comment on above: Performed By: #### L IPID, T4, TSH, FT3, CMP #### [facility] [address] [place] [address] Dr. Maggy Irving Globulin (S) [Mass/Vol] 3.4 g/dL Normal [facility] Comment on above: Performed By: #### L IPID, T4, TSH, FT3, CMP #### [facility] [address] [place] [address] Dr. Maggy Irving Glucose [Mass/Vol] 116 mg/dL Critically high 74-106 [facility] Comment on above: Performed By: #### L IPID, T4, TSH, FT3, CMP #### [facility] Laboratory [address] [place] [address] Dr. Maggy Irving Potassium [Moles/Vol] 4.0 mmol/L Normal 3.5-5.1 [facility] Comment on above: Performed By: #### L IPID, T4, TSH, FT3, CMP #### [facility] Laboratory [address] [address] [address] Maggy Irving Protein [Mass/Vol] 7.2 g/dL Normal 6.4-8.[address] [facility] Comment on above: Performed By: #### L IPID, T4, TSH, FT3, CMP #### [facility] Laboratory [address] [address] [address] Maggy Irving Sodium [Moles/Vol] 141 mmol/L Normal 136-145 [facility] Comment on above: Performed By: #### L IPID, T4, TSH, FT3, CMP #### [facility] Laboratory [address] [address] [address] Maggy Irving Urea nitrogen [Mass/Vol] 17.0 mg/dL Normal 7.0-18.0 [facility] Comment on above: Performed By: #### L IPID, T4, TSH, FT3, CMP #### [facility] Laboratory [address] [address] [address] Maggy Irving Urea nitrogen/Creatinine [Mass ratio] 20.5 mg/mg Normal [facility] Comment on above: Performed By: #### L IPID, T4, TSH, FT3, CMP #### [facility] Laboratory [address] [address] [address] Maggy Irving TSHon 12-07-2022 TSH 5.531 uIU/mL Critically high 0.358-3.[address] [facility] Comment on above: Performed By: #### L IPID, T4, TSH, FT3, CMP #### [facility] Laboratory [address] [place] [address] Dr. Maggy Irving TESTOSTERONE, TOTALon 2021 Testosterone [Mass/Vol] 390 ng/dL Normal 264-916 [facility] Comment on above: Result Comment: Adul t male reference interval is based on a population of healthy nonobese males (BMI <30) between 19 and 39 years old. dave Jacobs.al. JCEM 2017,102;3348-2575. PMID: [id number]. Performed By: #### L IPID, T4, TSH, FT3, CMP #### [facility] Laboratory [address] [place] [address] Dr. Maggy Irving CBC AUTO DIFFon 04-09-2022 BASO # 0.0 103/ul Normal 0.0-0.1 [facility] Comment on above: Performed By: #### L IPID, T4, TSH, FT3, CMP #### [facility] Laboratory [address] [place] [address] Dr. Maggy Irving Basophils/100 WBC (Bld) 0.2 % Normal 0.2-2.0 [facility] Comment on above: Performed By: #### L IPID, T4, TSH, FT3, CMP #### [facility] Laboratory [address] [place] [address] Dr. Maggy Irving EO # 0.2 103/ul Normal 0.0-0.7 [facility] Comment on above: Performed By: #### L IPID, T4, TSH, FT3, CMP #### [facility] Laboratory [address] [place] [address] Dr. Maggy Irving Eosinophils/100 WBC (Bld) 3.1 % Normal 0.9-7.0 [facility] Comment on above: Performed By: #### L IPID, T4, TSH, FT3, CMP #### [facility] Laboratory [address] [place] [address] Dr. Maggy Irving Erythrocyte distribution width (RBC) [Ratio] 12.3 % Normal 11.0-15.0 [facility] Comment on above: Performed By: #### L IPID, T4, TSH, FT3, CMP #### [facility] Laboratory [address] [place] [address] Dr. Maggy Irving Hematocrit (Bld) [Volume fraction] 41.6 % Critically low 42.0-54.0 [facility] Comment on above: Performed By: #### L IPID, T4, TSH, FT3, CMP #### [facility] Laboratory [address] [place] [address] Dr. Maggy Irving Hemoglobin (Bld) [Mass/Vol] 14.6 g/dL Normal 14.0-18.0 [facility] Comment on above: Performed By: #### L IPID, T4, TSH, FT3, CMP #### [facility] Laboratory [address] [place] [address] Dr. Maggy Irving IG # 0.02 10e3/ul Normal 0.00-0.03 [facility] Comment on above: Performed By: #### L IPID, T4, TSH, FT3, CMP #### [facility] Laboratory [address] [place] [address] Dr. Maggy Irving IG % 0.4 % Normal 0.0-0.5 [facility] Comment on above: Performed By: #### L IPID, T4, TSH, FT3, CMP #### [facility] Laboratory [address] [place] [address] Dr. Maggy Irving LYMPH # 0.9 103/ul Critically low 1.2-3.8 [facility] Comment on above: Performed By: #### L IPID, T4, TSH, FT3, CMP #### [facility] Laboratory [address] [place] [address] Dr. Maggy Irving Lymphocytes/100 WBC (Bld) 17.9 % Critically low 20.5-60.0 [facility] Comment on above: Performed By: #### L IPID, T4, TSH, FT3, CMP #### [facility] Laboratory [address] [place] [address] Dr. Maggy Irving MANUAL DIFF REQ NO Normal [facility] Comment on above: Performed By: #### L IPID, T4, TSH, FT3, CMP #### [facility] Laboratory [address] [place] [address] Dr. Maggy Irving MCH (RBC) [Entitic mass] 31.1 pg Normal 25.9-34.0 [facility] Comment on above: Performed By: #### L IPID, T4, TSH, FT3, CMP #### [facility] Laboratory [address] [place] [address] Dr. Maggy Irving MCHC (RBC) [Mass/Vol] 35.1 g/dL Normal 29.9-35.2 [facility] Comment on above: Performed By: #### L IPID, T4, TSH, FT3, CMP #### [facility] Laboratory [address] [place] [address] Dr. Maggy Irving MCV (RBC) [Entitic vol] 88.5 fL Normal 80.0-94.0 [facility] Comment on above: Performed By: #### L IPID, T4, TSH, FT3, CMP #### [facility] Laboratory [address] [place] [address] Dr. Maggy Irving MONO # 0.4 103/ul Normal 0.3-0.8 [facility] Comment on above: Performed By: #### L IPID, T4, TSH, FT3, CMP #### [facility] Laboratory [address] [place] [address] Dr. Maggy Irving Monocytes/100 WBC (Bld) 8.7 % Normal 1.7-12.0 [facility] Comment on above: Performed By: #### L IPID, T4, TSH, FT3, CMP #### [facility] Laboratory [address] [place] [address] Dr. Maggy Irving NEUT # 3.4 103/ul Normal 1.4-6.5 [facility] Comment on above: Performed By: #### L IPID, T4, TSH, FT3, CMP #### [facility] Laboratory [address] [place] [address] Dr. Maggy Irving Neutrophils/100 WBC (Bld) 69.7 % Normal 43.0-75.0 [facility] Comment on above: Performed By: #### L IPID, T4, TSH, FT3, CMP #### [facility] Laboratory [address] [place] [address] Dr. Maggy Irving Platelet mean volume (Bld) [Entitic vol] 9.9 fL Normal 9.5-13.5 [facility] Comment on above: Performed By: #### L IPID, T4, TSH, FT3, CMP #### [facility] Laboratory [address] [place] [address] Dr. Maggy Irving PLT 121 103/ul Critically low 150-450 [facility] Comment on above: Performed By: #### L IPID, T4, TSH, FT3, CMP #### [facility] Laboratory [address] [address] [address] Maggy Irving RBC 4.70 106/ul Normal 4.70-6.10 [facility] Comment on above: Performed By: #### L IPID, T4, TSH, FT3, CMP #### [facility] Laboratory [address] [address] [address] Maggy Irving WBC 4.8 103/ul Normal 4.0-11.0 [facility] Comment on above: Performed By: #### L IPID, T4, TSH, FT3, CMP #### [facility] Laboratory [address] [place] [address] Dr. Maggy Irving FREE T3on 04-09-2022 FREE T3 3.15 pg/mlL Normal 2.18-3.98 [facility] Comment on above: Performed By: #### L IPID, T4, TSH, FT3, CMP #### [facility] Laboratory [address] [place] [address] Dr. Maggy Irving GLYCOHEMOGLOBIN A1Con 2021 ADA RECOMMENDATION SEE BELOW Normal [facility] Comment on above: Result Comment: ADA RECOMMENDED LIMIT 4.0 - 6.0 ADA THERAPEUTIC TARGET < 7.0 ACTION SUGGESTED > 7.0 Performed By: #### L IPID, T4, TSH, FT3, CMP #### [facility] Laboratory [address] [address] [address] Maggy Irving Glucose [Mass/Vol] 123 mg/dL Normal [facility] Comment on above: Performed By: #### L IPID, T4, TSH, FT3, CMP #### [facility] Laboratory [address] [address] [address] Maggy Irving HbA1c (Bld) [Mass fraction] 5.9 % Normal 4.5-6.2 [facility] Comment on above: Performed By: #### L IPID, T4, TSH, FT3, CMP #### [facility] Laboratory [address] [place] [address] Dr. Maggy Irving LIPID PROFILEon 04-09-2022 CHOL-HDL RATIO NORM SEE BELOW Normal [facility] Comment on above: Result Comment: 3.3 - 4.4 LOW RISK 4.4 - 7.1 AVERAGE RISK 7.1 - 11.0 MODERATE RISK >11.0 HIGH RISK Performed By: #### L IPID, T4, TSH, FT3, CMP #### [facility] Laboratory [address] [address] [address] Maggy Irving Cholesterol [Mass/Vol] 174 mg/dL Normal <=200 [facility] Comment on above: Performed By: #### L IPID, T4, TSH, FT3, CMP #### [facility] Laboratory [address] [address] [address] Maggy Irving Cholesterol in HDL [Mass/Vol] 36 mg/dL Critically low 40-60 [facility] Comment on above: Performed By: #### L IPID, T4, TSH, FT3, CMP #### [facility] Laboratory [address] [address] [address] Maggy Irving Cholesterol in LDL [Mass/Vol] 114.4 mg/dL Normal [facility] Comment on above: Performed By: #### L IPID, T4, TSH, FT3, CMP #### [facility] Laboratory [address] [place] [address] Dr. Maggy Irving Cholesterol.total/Cho lesterol in HDL [Mass ratio] 4.8 {ratio} Normal [facility] Comment on above: Performed By: #### L IPID, T4, TSH, FT3, CMP #### [facility] Laboratory [address] [address] [address] Maggy Irving HDL NORMAL > or = 60 mg/dl - LO W CARDIOVASCULAR RISK <40 mg/dl - HIGH CARDIOVASCULAR RISK Normal [facility] Comment on above: Performed By: #### L IPID, T4, TSH, FT3, CMP #### [facility] Laboratory [address] [place] [address] Dr. Maggy Irving LDL CALC NORMAL SEE BELOW Normal [facility] Comment on above: Result Comment: <100 mg/dl OPTIMAL 100 - 129 mg/dl NEAR OR ABOVE OPTIMAL 130 - 159 mg/dl BORDERLINE HIGH 160 - 189 mg/dl HIGH >190 mg/dl VERY HIGH Performed By: #### L IPID, T4, TSH, FT3, CMP #### [facility] Laboratory [address] [place] [address] Dr. Maggy Irving Triglyceride [Mass/Vol] 118 mg/dL Normal <=150 [facility] Comment on above: Performed By: #### L IPID, T4, TSH, FT3, CMP #### [facility] Laboratory [address] [place] [address] Dr. Maggy Irving VLDL CALC 23.6 mg/dL Normal [facility] Comment on above: Performed By: #### L IPID, T4, TSH, FT3, CMP #### [facility] Laboratory [address] [place] [address] Dr. Maggy Irving OCC BLD IMMUNO SCREENon 03-20 OCCULT BLOOD Negative Normal NEGATIVE [facility] Comment on above: Performed By: #### O BSCRN #### [facility] Laboratory [address] [place] [address] Dr. Maggy Irving PROF 14(COMP METB)on 022 Albumin [Mass/Vol] 3.6 g/dL Normal 3.4-5.[address] [facility] Comment on above: Performed By: #### L IPID, T4, TSH, FT3, CMP #### [facility] Laboratory [address] [place] [address] Dr. Maggy Irving Albumin/Globulin [Mass ratio] 1.1 {ratio} Normal [facility] Comment on above: Performed By: #### L IPID, T4, TSH, FT3, CMP #### [facility] Laboratory [address] [place] [address] Dr. Maggy Irving ALP [Catalytic activity/Vol] 47 U/L Normal 46-116 [facility] Comment on above: Performed By: #### L IPID, T4, TSH, FT3, CMP #### [facility] Laboratory [address] [place] [address] Dr. Maggy Irving ALT [Catalytic activity/Vol] 31 U/L Normal 16-63 [facility] Comment on above: Performed By: #### L IPID, T4, TSH, FT3, CMP #### [facility] Laboratory [address] [address] [address] Maggy Irving Anion gap [Moles/Vol] 10.2 mmol/L Normal [facility] Comment on above: Performed By: #### L IPID, T4, TSH, FT3, CMP #### [facility] Laboratory [address] [address] [address] Maggy Irving AST [Catalytic activity/Vol] 17 U/L Normal 15-37 [facility] Comment on above: Performed By: #### L IPID, T4, TSH, FT3, CMP #### [facility] Laboratory [address] [place] [address] Dr. Maggy Irving Bilirubin [Mass/Vol] 0.6 mg/dL Normal 0.2-1.0 [facility] Comment on above: Performed By: #### L IPID, T4, TSH, FT3, CMP #### [facility] Laboratory [address] [place] [address] Dr. Maggy Irving Calcium [Mass/Vol] 8.1 mg/dL Critically low 8.5-10.1 [facility] Comment on above: Performed By: #### L IPID, T4, TSH, FT3, CMP #### [facility] Laboratory [address] [place] [address] Dr. Maggy Irving Chloride [Moles/Vol] 105 mmol/L Normal 98-107 [facility] Comment on above: Performed By: #### L IPID, T4, TSH, FT3, CMP #### [facility] Laboratory [address] [place] [address] Dr. Maggy Irving CO2 [Moles/Vol] 29.6 mmol/L Normal 21.0-32.0 [facility] Comment on above: Performed By: #### L IPID, T4, TSH, FT3, CMP #### [facility] Laboratory [address] [place] [address] Dr. Maggy Irving Creatinine [Mass/Vol] 0.89 mg/dL Normal 0.70-1.30 [facility] Comment on above: Performed By: #### L IPID, T4, TSH, FT3, CMP #### [facility] Laboratory [address] [address] [address] Maggy Irving EGFR-AF EMIRATI >60 Normal >=60 [facility] Comment on above: Performed By: #### L IPID, T4, TSH, FT3, CMP #### [facility] Laboratory [address] [address] [address] Maggy Irving EGFR-NON AF EMIRATI >60 Normal >=60 [facility] Comment on above: Performed By: #### L IPID, T4, TSH, FT3, CMP #### [facility] Laboratory [address] [address] [address] Maggy Irving Globulin (S) [Mass/Vol] 3.2 g/dL Normal [facility] Comment on above: Performed By: #### L IPID, T4, TSH, FT3, CMP #### [facility] Laboratory [address] [place] [address] Dr. Maggy Irving Glucose [Mass/Vol] 110 mg/dL Critically high 74-106 [facility] Comment on above: Performed By: #### L IPID, T4, TSH, FT3, CMP #### [facility] Laboratory [address] [place] [address] Dr. Maggy Irving Potassium [Moles/Vol] 3.8 mmol/L Normal 3.5-5.1 [facility] Comment on above: Performed By: #### L IPID, T4, TSH, FT3, CMP #### [facility] Laboratory [address] [address] [address] Maggy Irving Protein [Mass/Vol] 6.8 g/dL Normal 6.4-8.2 [facility] Comment on above: Performed By: #### L IPID, T4, TSH, FT3, CMP #### [facility] Laboratory [address] [place] [address] Dr. Maggy Irving Sodium [Moles/Vol] 141 mmol/L Normal 136-[address] [facility] Comment on above: Performed By: #### L IPID, T4, TSH, FT3, CMP #### [facility] [address] [address] [address] Maggy Irving Urea nitrogen [Mass/Vol] 17.0 mg/dL Normal 7.0-18.0 [facility] Comment on above: Performed By: #### L IPID, T4, TSH, FT3, CMP #### [facility] [address] [address] [address] Maggy Irving Urea nitrogen/Creatinine [Mass ratio] 19.1 mg/mg Normal [facility] Comment on above: Performed By: #### L IPID, T4, TSH, FT3, CMP #### [facility] [address] [address] [address] Maggy Irving T4on 04-09-2022 T4 [Mass/Vol] 7.90 ug/dL Normal 4.50-12.10 [facility] Comment on above: Performed By: #### L IPID, T4, TSH, FT3, CMP #### [facility] [address] [address] [address] Maggy Irving TSHon 04-09-2022 TSH 4.949 uIU/mL Critically high 0.358-3.[address] [facility] Comment on above: Performed By: #### L IPID, T4, TSH, FT3, CMP #### [facility] [address] [address] [address] Maggy Irving Vital Signs Date Time Vital Sign Value Performing Clinician Faci lity 04-06-2024 09:43-0400 Body height 177.8 cm [facility] 04-06-2024 09:43-0400 Body mass index (BMI) [Ratio] 34.4 kg/m2 [facility] 04-06-2024 09:43-0400 Body temperature 98.3 [degF] [facility] 04-06-2024 09:43-0400 Body weight 109.08 kg [facility] 04-06-2024 09:43-0400 Diastolic blood pressure 78 mm[Hg] [facility] 04-06-2024 09:43-0400 Heart rate 87 /min [facility] 04-06-2024 09:43-0400 Respiratory rate 18 /min [facility] 04-06-2024 09:43-0400 SaO2% (BldA) [Mass fraction] 96 % [facility] 04-06-2024 09:43-0400 Systolic blood pressure 146 mm[Hg] [facility] Encounters Encounter Date Encounter Type Care Provider Facility Start: 04-06-2024 End: 04-06-[address] [facility] Work Phone: Start: 04-06-2024 End: 04-06-2024 Patient encounter procedure [facility] Work Phone: Start: 02-10-2023 End: 02-11-2023 ambulatory IVELISSE ORNELAS Facility:[facility] Start: 02-07-2023 End: 02-07-2023 ambulatory IVELISSE ORNELAS Facility:[facility] Start: 02-06-2023 Encounter for preprocedural laboratory examination IVELISSE ORNELAS [facility] Start: 01-31-2023 End: 02-01-[address] MARCELLA [...] L IPID, T4, TSH, FT3, CMP #### [facility] Laboratory [address] [place] [address] Dr. Maggy Irving Payers Date Payer Category Payer Medicare [id number] 1957 Unknown [id number] 1950 Unknown [id number] 2.16.84 [id number] 1950 Unknown [id number] 2.16.84 [id number] 1950 Unknown [id number] 2.16.84 [id number] 1952 Unknown [id number] 2.16.84 [id number] 1952 Unknown [id number] 2.16.84 [id number] 1952 Unknown [id number] 2.16.84 [id number] 1952 Unknown [id number] 2.16.84 [id number] 1952 Unknown [id number] 2.16.84 [id number] 1952 Unknown [id number] 2.16.84 [id number] 1952 Unknown [id number] 2.16.84 [id number] 1950 Unknown [id number] 2.16.84 [id number] Medicare Medicare [id number] Social History Date Type Detail [facility] [place] Work Phone: Start: 1950 Sex Assigned At Male F [facility] Clinical Note 02-07-2023 Note Date [...] by: OLVIN KHANNA Date: 2023-02-07 09:41 [facility] Evaluation note Note Date & Type Note Facility Evaluation note Diagnosis Onset Date Bacterial conjunctivitis of right eye acute [place] Work Phone: Summary Purpose Family History Relationship [...] and content) DATE CREATED AUTHOR 02/25/2023 [facility] Care Teams (unrecognized sec tion and content) [...] BE BASED ON THE PRIMARY CLINICAL RECORDS. [facility] [employer] [facility]. provides no warranty or guarantee of the accuracy or completeness of information in this document.
[2024-04-27 08:45] LABS: Basophils Percent Auto 0.2 % (0.2-2.0); Eosinophils Absolute Auto 0.1 10^3/uL (0.0-0.7); Eosinophils Percent Auto 3.1 % (0.9-7.0); Hematocrit 39.8 % (42.0-54.0); Hemoglobin 13.8 g/dL (14.0-18.0); Immature Granulocytes Abs Auto 0.01 10^3/uL (0.00-0.03); Immature Granulocytes Pct Auto 0.2 % (0.0-0.5); Lymphocytes Percent Auto 24.6 % (20.5-60.0); Mean Corpuscular HGB Conc 34.7 g/dL (29.9-35.2); Mean Corpuscular Hemoglobin 31.1 pg (25.9-34.0); Mean Corpuscular Volume 89.6 fL (80.0-94.0); Mean Platelet Volume 10.3 fL (9.5-13.5); Monocytes Absolute Auto 0.4 10^3/uL (0.3-0.8); Neutrophils Absolute Auto 2.6 10^3/uL (1.4-6.5); Neutrophils Percent Auto 61.9 % (43.0-75.0); Platelet Count 125 10^3/uL (150-450); Red Blood Count 4.44 10^6/uL (4.70-6.10); Red Cell Distribution Width 12.1 % (11.0-15.0); White Blood Count 4.2 10^3/uL (4.0-11.0)
== END 2024-04-27 07:02 | disposition home or self-care (01) ==
LOC: LAB 07:05
PROVIDERS: PCP Family Medicine; Visit Provider Family Medicine
DX: D72.829 Elevated white blood cell count, unspecified (principal)
CPT/HCPCS: 36415; 85025

== ENCOUNTER 2024-05-02 10:18 | Outpatient (OUT) | payer MEDICARE, OTHER, SELFPAY ==
--- NOTE | 2024-05-02 | XR_ITS ---
[address] [address] Patient Name: SILVINO MARVIN MRN: [id number] date: 1950 Sex: M Assigned Patient Location: Current Patient Location: Accession/Order Number: [id number] Exam Date: 05/02/2024 10:32 Report Date: 05/02/2024 12:04 At the request of: IVELISSE ORNELAS Procedure: XR ankle JOHANNY min 3V EXAMINATION: XR ankle JOHANNY min 3V, XR foot JOHANNY min 3V HISTORY: BILATERAL ANKLE PAIN COMPARISON: 07/26/2023 FINDINGS: RIGHT FINDINGS: BONES: Persistent flexion at 4 mm of the toes limits their evaluation. 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 There is marked degenerative changes of the tibiotalar joint with [id number] articulation of the medial joint. Hindfoot varus. Moderate enthesopathic spurring of the calcaneus at the Achilles insertion SOFT TISSUES: Negative. No visible soft tissue swelling. OTHER: Negative. LEFT FINDINGS: BONES: No acute fracture or dislocation. Persistent flexion of the toes limits their evaluation. Moderate enthesopathic spurring of the calcaneus at the Achilles insertion SOFT TISSUES: Negative. No visible soft tissue swelling. OTHER: Negative. 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
--- NOTE | 2024-05-02 | XR_ITS ---
[address] [address] Patient Name: SILVINO MARVIN MRN: [id number] date: 1950 Sex: M Assigned Patient Location: Current Patient Location: Accession/Order Number: [id number] Exam Date: 05/02/2024 10:32 Report Date: 05/02/2024 12:04 At the request of: IVELISSE ORNELAS Procedure: XR foot JOHANNY min 3V EXAMINATION: XR ankle JOHANNY min 3V, XR foot JOHANNY min 3V HISTORY: BILATERAL ANKLE PAIN COMPARISON: 07/26/2023 FINDINGS: RIGHT FINDINGS: BONES: Persistent flexion at 4 mm of the toes limits their evaluation. 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 There is marked degenerative changes of the tibiotalar joint with [id number] articulation of the medial joint. Hindfoot varus. Moderate enthesopathic spurring of the calcaneus at the Achilles insertion SOFT TISSUES: Negative. No visible soft tissue swelling. OTHER: Negative. LEFT FINDINGS: BONES: No acute fracture or dislocation. Persistent flexion of the toes limits their evaluation. Moderate enthesopathic spurring of the calcaneus at the Achilles insertion SOFT TISSUES: Negative. No visible soft tissue swelling. OTHER: Negative. 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
--- OUTSIDE RECORDS SUMMARY | 2024-05-02 10:38 | XMS_ITS | CCD ---
Author Organization [facility] Care Team Providers Care Line Runner Name Role Phone CHEIKH ., DR NARANJO [...] Attending Unavailable HIGHLANDER, PETER D Admitting Unavailable Hoy, MD Marcella M Attending Provider aMrcella Gross Admitting Unavailable Marcella Gross Attending Unavailable Medications Current Medications Medication Drug Class(es) Dates Sig (Normalized) Sig (Original) doxazosin 4 mg oral tablet (2 sources) alpha-Adrenergic Isela Start: 04-06-2024 Doxazosin Active MG PO April 06, 2024 12:00am levothyroxine sodium 0.075 mg oral tablet (2 sources) l-Thyroxine Start: 04-06-2024 Levothyroxine Active MCG PO April 06, 2024 12:00am magnesium oxide 500 mg oral capsule (2 sources) Start: 04-06-2024 take 500 mg by mouth once daily Magnesium Oxide Active 500 MG PO Daily April 06, 2024 12:00am ofloxacin 3 mg/ml ophthalmic solution (2 sources) Quinolone Antimicrobial Start: 04-06-2024 take 1 drop(s) into the eye(s) four times daily Ofloxacin Active 2 DROPS OPHTHALMIC Four times daily 10 April 06, 2024 12:00am right eye oxybutynin chloride 5 mg oral tablet (2 sources) Cholinergic Muscarinic Antagonist Start: 04-06-2024 Oxybutynin Chloride [...] that caused by tuberculosis or sexually transmitteddisease) (4 sources) Bacterial conjunctivitis; Translations: [Unspecified conjunctivitis] 04-06-2024 Episodic Other aftercare (1 source) Other care home (current) drug therapy; Translations: [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 Maggy Irving FUNGAL CULTUREon 02-09-2023 Fungus Stain Final report Normal [facility] Comment on above: Performed By: #### L IPID, T4, TSH, FT3, CMP #### [facility] [address] [address] [address] Maggy Irving Result 1 Comment Normal [facility] Comment on above: Result Comment: SUDHIR/ Calcofluor preparation: no fungus observed. Performed By: #### L IPID, T4, TSH, FT3, CMP #### [facility] [address] [address] [address] Maggy Irving ACID FAST SMEAR AND CXon Acid Fast Smear Negative Normal [facility] Comment on above: Performed By: #### A FB #### [facility] [address] [address] [address] Maggy Irving AF[employer] Specimen Processing Tissue Grinding Normal [facility] Comment on above: Performed By: #### A FB #### [facility] [address] [place] [address] Dr. Maggy Irving CULTURE ANAEROBICon 02-08-20 CULTURE ANAEROBIC Isolate 1 Finegoldia magna Light growth of Normal [facility] Comment on above: Result Comment: EVID ENCE BASED PRACTICE BY [facility] HAS DEMONSTRATED THAT FINEGOLDIA SPECIES ARE ROUTINELY SUSCEPTIBLE TO PIPERACILLIN-TAZOBACTAM, CEFOXITIN, ERTAPENEM, IMIPENEM METRONIDAZOLE AND VARIABLY RESISTANT TO CLINDAMYCIN. Performed By: #### L IPID, T4, TSH, FT3, CMP #### [facility] [address] [address] [address] Maggy MENDOZA STAINon 02-07-2023 COMMENTS NO ORGANISMS OBSERVED Normal [facility] Comment on above: Performed By: #### G STAIN #### [facility] [address] [address] [address] Maggy Irving DIPHTHEROIDS Normal [facility] Comment on above: Performed By: #### G STAIN #### [facility] [address] [place] [address] Dr. Maggy Irving EPITHELIALS Normal [facility] Comment on above: Performed By: #### G STAIN #### [facility] [address] [address] [address] Maggy Irving FUNGAL ELEMENTS Normal [facility] Comment on above: Performed By: #### G STAIN #### [facility] [address] [address] [address] Maggy MENDOZA NEG BACILLI Normal [facility] Comment on above: Performed By: #### G STAIN #### [facility] [address] [place] [address] Dr. Maggy MENDOZA NEG DIPPLOCOCCI Normal [facility] Comment on above: Performed By: #### G STAIN #### [facility] [address] [address] [address] Maggy MENDOZA POS BACILLI Normal [facility] Comment on above: Performed By: #### G STAIN #### [facility] [address] [place] [address] Dr. Maggy Irving GRAM POSITIVE COCCI Normal [facility] Comment on above: Performed By: #### G STAIN #### [facility] [address] [place] [address] Dr. Maggy Irving GRAM STAIN SOURCE 5th Metatarsal Bone Normal [facility] Comment on above: Performed By: #### G STAIN #### [facility] [address] [address] [address] Maggy Irving GS_DIPTH [facility] Comment on above: Performed By: #### G STAIN #### [facility] [address] [address] [address] Maggy Irving WBC RARE [facility] Comment on above: Performed By: #### G STAIN #### [facility] [address] [address] [address] Maggy Irving POINT OF CARE GLUCOSEon 01-18 Glucose [Mass/Vol] 114 mg/dL Critically high 74-106 [facility] Comment on above: Performed By: #### P OCGLUC #### [facility] [address] [place] [address] Dr. Maggy Irving Glucose [Mass/Vol] 122 mg/dL Critically high 74-106 [facility] Comment on above: Performed By: #### P OCGLUC #### [facility] [address] [place] [address] Dr. Maggy Irving PROF CHEM 8 (BAS METB)on Anion gap [Moles/Vol] 12.0 mmol/L Normal [facility] Comment on above: Performed By: #### L IPID, T4, TSH, FT3, CMP #### [facility] [address] [place] [address] Dr. Maggy Irving Calcium [Mass/Vol] 8.7 mg/dL Normal 8.5-10.1 [facility] Comment on above: Performed By: #### L IPID, T4, TSH, FT3, CMP #### [facility] [address] [address] [address] Maggy Irving Chloride [Moles/Vol] 104 mmol/L Normal 98-107 [facility] Comment on above: Performed By: #### L IPID, T4, TSH, FT3, CMP #### [facility] [address] [place] [address] Dr. Maggy Irving CO2 [Moles/Vol] 28.1 mmol/L Normal 21.0-32.0 [facility] Comment on above: Performed By: #### L IPID, T4, TSH, FT3, CMP #### [facility] [address] [place] [address] Dr. Maggy Irving Creatinine [Mass/Vol] 0.80 mg/dL Normal 0.70-1.30 [facility] Comment on above: Performed By: #### L IPID, T4, TSH, FT3, CMP #### [facility] [address] [place] [address] Dr. Maggy Irving EGFR-AF GRENADIAN >60 Normal >=60 [facility] Comment on above: Performed By: #### L IPID, T4, TSH, FT3, CMP #### [facility] [address] [place] [address] Dr. Maggy Irving EGFR-NON AF GRENADIAN >60 Normal >=60 [facility] Comment on above: Performed By: #### L IPID, T4, TSH, FT3, CMP #### [facility] [address] [place] [address] Dr. Maggy Irving Glucose [Mass/Vol] 129 mg/dL Critically high 74-106 [facility] Comment on above: Performed By: #### L IPID, T4, TSH, FT3, CMP #### [facility] [address] [place] [address] Dr. Maggy Irving Potassium [Moles/Vol] 4.1 mmol/L Normal 3.5-5.1 [facility] Comment on above: Performed By: #### L IPID, T4, TSH, FT3, CMP #### [facility] [address] [place] [address] Dr. Maggy Irving Sodium [Moles/Vol] 140 mmol/L Normal 136-145 [facility] Comment on above: Performed By: #### L IPID, T4, TSH, FT3, CMP #### [facility] [address] [place] [address] Dr. Maggy Irving Urea nitrogen [Mass/Vol] 20.0 mg/dL Critically high 7.0-18.0 [facility] Comment on above: Performed By: #### L IPID, T4, TSH, FT3, CMP #### [facility] [address] [address] [address] Maggy Irving Urea nitrogen/Creatinine [Mass ratio] 25.0 mg/mg Normal [facility] Comment on above: Performed By: #### L IPID, T4, TSH, FT3, CMP #### [facility] [address] [address] [address] Maggy Irving FREE T3on 01-07-2023 FREE T3 3.24 pg/mlL Normal 2.18-3.98 [facility] Comment on above: Performed By: #### L IPID, T4, TSH, FT3, CMP #### [facility] [address] [address] [address] Maggy Irving T4on 01-07-2023 T4 [Mass/Vol] 9.10 ug/dL Normal 4.50-12.10 [facility] Comment on above: Performed By: #### L IPID, T4, TSH, FT3, CMP #### [facility] [address] [address] [address] Maggy Irving TSHon 01-07-2023 TSH 5.957 uIU/mL Critically high 0.358-3.740 [facility] Comment on above: Performed By: #### L IPID, T4, TSH, FT3, CMP #### [facility] [address] [address] [address] Maggy Irving NM STRESS/REST MULTIon 01-03 NM STRESS/REST MULTI Patient: SILVINO MARVINSebas Exam Date: 01/03/2023 : 1950 Gender:M Ordering : DR MARCELLA GROSS . Admission #: [id number] Family : Order #: [id number] CLICK HERE TO VIEW EXAM RADIOLOGY REPORT [...] Khanna M.D. on 01/04/2023 at 07:45 Normal [facility] ECHOCARDIO M/2D COMPLETEon 0 12-21-2022 ECHOCARDIO M/2D COMPLETE Patient: SILVINO MARVIN Exam Date: 12/21/2022 : 1950 Gender:M Ordering : DR MARCELLA GROSS . Admission #: [id number] Family : Order #: [id number] CLICK HERE TO VIEW EXAM ECHOCARDIOGRAM REPORT [...] M.D. on 12/23/2022 at 18:05 Normal [facility] BNPon 12-07-2022 Natriuretic peptide B (Bld) [Mass/Vol] 37.0 pg/mL Normal <=900.0 [facility] Comment on above: Performed By: #### L IPID, T4, TSH, FT3, CMP #### [facility] [address] [place] [address] Dr. Maggy Irving CBC AUTO DIFFon 12-07-2022 BASO # 0.0 103/ul Normal 0.0-0.1 [facility] Comment on above: Performed By: #### L IPID, T4, TSH, FT3, CMP #### [facility] [address] [place] [address] Dr. Maggy Irving Basophils/100 WBC (Bld) 0.2 % Normal 0.2-2.0 [facility] Comment on above: Performed By: #### L IPID, T4, TSH, FT3, CMP #### [facility] [address] [place] [address] Dr. Maggy Irving EO # 0.2 103/ul Normal 0.0-0.7 [facility] Comment on above: Performed By: #### L IPID, T4, TSH, FT3, CMP #### [facility] [address] [place] [address] Dr. Maggy Irving Eosinophils/100 WBC (Bld) 3.7 % Normal 0.9-7.0 [facility] Comment on above: Performed By: #### L IPID, T4, TSH, FT3, CMP #### [facility] [address] [place] [address] Dr. Maggy Irving Erythrocyte distribution width (RBC) [Ratio] 11.9 % Normal 11.0-15.0 [facility] Comment on above: Performed By: #### L IPID, T4, TSH, FT3, CMP #### [facility] [address] [place] [address] Dr. Maggy Irving Hematocrit (Bld) [Volume fraction] 39.7 % Critically low 42.0-54.0 [facility] Comment on above: Performed By: #### L IPID, T4, TSH, FT3, CMP #### [facility] [address] [place] [address] Dr. Maggy Irving Hemoglobin (Bld) [Mass/Vol] 14.0 g/dL Normal 14.0-18.0 [facility] Comment on above: Performed By: #### L IPID, T4, TSH, FT3, CMP #### [facility] [address] [place] [address] Dr. Maggy Irving IG # 0.02 10e3/ul Normal 0.00-0.03 [facility] Comment on above: Performed By: #### L IPID, T4, TSH, FT3, CMP #### [facility] [address] [place] [address] Dr. Maggy Irving IG % 0.5 % Normal 0.0-0.5 [facility] Comment on above: Performed By: #### L IPID, T4, TSH, FT3, CMP #### [facility] [address] [place] [address] Dr. Maggy Irving LYMPH # 0.9 103/ul Critically low 1.2-3.8 [facility] Comment on above: Performed By: #### L IPID, T4, TSH, FT3, CMP #### [facility] [address] [place] [address] Dr. Maggy Irving Lymphocytes/100 WBC (Bld) 21.1 % Normal 20.5-60.0 [facility] Comment on above: Performed By: #### L IPID, T4, TSH, FT3, CMP #### [facility] [address] [place] [address] Dr. Maggy Irving MANUAL DIFF REQ NO Normal [facility] Comment on above: Performed By: #### L IPID, T4, TSH, FT3, CMP #### [facility] [address] [place] [address] Dr. Maggy Irving MCH (RBC) [Entitic mass] 30.5 pg Normal 25.9-34.0 [facility] Comment on above: Performed By: #### L IPID, T4, TSH, FT3, CMP #### [facility] [address] [place] [address] Dr. Maggy Irving MCHC (RBC) [Mass/Vol] 35.3 g/dL Critically high 29.9-35.2 [facility] Comment on above: Performed By: #### L IPID, T4, TSH, FT3, CMP #### [facility] [address] [place] [address] Dr. Maggy Irving MCV (RBC) [Entitic vol] 86.5 fL Normal 80.0-94.0 [facility] Comment on above: Performed By: #### L IPID, T4, TSH, FT3, CMP #### [facility] [address] [place] [address] Dr. Maggy Irving MONO # 0.4 103/ul Normal 0.3-0.8 [facility] Comment on above: Performed By: #### L IPID, T4, TSH, FT3, CMP #### [facility] [address] [place] [address] Dr. Maggy Irving Monocytes/100 WBC (Bld) 8.7 % Normal 1.7-12.0 [facility] Comment on above: Performed By: #### L IPID, T4, TSH, FT3, CMP #### [facility] [address] [address] [address] Maggy Irving NEUT # 2.9 103/ul Normal 1.4-6.5 [facility] Comment on above: Performed By: #### L IPID, T4, TSH, FT3, CMP #### [facility] [address] [place] [address] Dr. Maggy Irving Neutrophils/100 WBC (Bld) 65.8 % Normal 43.0-75.0 [facility] Comment on above: Performed By: #### L IPID, T4, TSH, FT3, CMP #### [facility] [address] [address] [address] Maggy Irving Platelet mean volume (Bld) [Entitic vol] 9.9 fL Normal 9.5-13.5 [facility] Comment on above: Performed By: #### L IPID, T4, TSH, FT3, CMP #### [facility] [address] [place] [address] Dr. Maggy Irving PLT 128 103/ul Critically low 150-450 [facility] Comment on above: Performed By: #### L IPID, T4, TSH, FT3, CMP #### [facility] [address] [place] [address] Dr. Maggy Irving RBC 4.59 106/ul Critically low 4.70-6.10 [facility] Comment on above: Performed By: #### L IPID, T4, TSH, FT3, CMP #### [facility] [address] [address] [address] Maggy Irving WBC 4.4 103/ul Normal 4.0-11.0 [facility] Comment on above: Performed By: #### L IPID, T4, TSH, FT3, CMP #### [facility] [address] [place] [address] Dr. Maggy Irving FREE THYROXINE INDEX T7on FTI 2.72 Normal 1.30-4.50 [facility] Comment on above: Performed By: #### L IPID, T4, TSH, FT3, CMP #### [facility] [address] [address] [address] Maggy Irving T3U 34.0 % Normal 33.0-40.0 [facility] Comment on above: Performed By: #### L IPID, T4, TSH, FT3, CMP #### [facility] [address] [address] [address] Maggy Irving T4 [Mass/Vol] 8.00 ug/dL Normal 4.50-12.[address] [facility] Comment on above: Performed By: #### L IPID, T4, TSH, FT3, CMP #### [facility] [address] [address] [address] Maggy Irving IRONon 12-07-2022 Iron [Mass/Vol] 134.0 ug/dL Normal 65.0-175.0 [facility] Comment on above: Performed By: #### L IPID, T4, TSH, FT3, CMP #### [facility] [address] [place] [address] Dr. Maggy Irving LIPID PROFILEon 12-07-2022 CHOL-HDL RATIO NORM SEE BELOW Normal [facility] Comment on above: Result Comment: 3.3 - 4.4 LOW RISK 4.4 - 7.1 AVERAGE RISK 7.1 - 11.0 MODERATE RISK >11.0 HIGH RISK Performed By: #### L IPID, T4, TSH, FT3, CMP #### [facility] [address] [address] [address] Maggy Irving Cholesterol [Mass/Vol] 180 mg/dL Normal <=200 [facility] Comment on above: Performed By: #### L IPID, T4, TSH, FT3, CMP #### [facility] [address] [address] [address] Maggy Irving Cholesterol in HDL [Mass/Vol] 37 mg/dL Critically low 40-60 [facility] Comment on above: Performed By: #### L IPID, T4, TSH, FT3, CMP #### [facility] [address] [address] [address] Maggy Irving Cholesterol in LDL [Mass/Vol] 95.2 mg/dL Normal [facility] Comment on above: Performed By: #### L IPID, T4, TSH, FT3, CMP #### [facility] [address] [address] [address] Maggy Irving Cholesterol.total/Cho lesterol in HDL [Mass ratio] 4.9 {ratio} Normal [facility] Comment on above: Performed By: #### L IPID, T4, TSH, FT3, CMP #### [facility] [address] [address] [address] Maggy Irving HDL NORMAL > or = 60 mg/dl - LO W CARDIOVASCULAR RISK <40 mg/dl - HIGH CARDIOVASCULAR RISK Normal [facility] Comment on above: Performed By: #### L IPID, T4, TSH, FT3, CMP #### [facility] [address] [place] [address] Dr. Maggy Irving LDL CALC NORMAL SEE BELOW Normal [facility] Comment on above: Result Comment: <100 mg/dl OPTIMAL 100 - 129 mg/dl NEAR OR ABOVE OPTIMAL 130 - 159 mg/dl BORDERLINE HIGH 160 - 189 mg/dl HIGH >190 mg/dl VERY HIGH Performed By: #### L IPID, T4, TSH, FT3, CMP #### [facility] [address] [place] [address] Dr. Maggy Irving Triglyceride [Mass/Vol] 239 mg/dL Critically high <=150 [facility] Comment on above: Performed By: #### L IPID, T4, TSH, FT3, CMP #### [facility] [address] [address] [address] Maggy Irving VLDL CALC 47.8 mg/dL Normal [facility] Comment on above: Performed By: #### L IPID, T4, TSH, FT3, CMP #### [facility] [address] [place] [address] Dr. Maggy Irving PROF 14(COMP METB)on 023 Albumin [Mass/Vol] 3.8 g/dL Normal 3.4-5.0 [facility] Comment on above: Performed By: #### L IPID, T4, TSH, FT3, CMP #### [facility] [address] [place] [address] Dr. Maggy Irving Albumin/Globulin [Mass ratio] 1.1 {ratio} Normal [facility] Comment on above: Performed By: #### L IPID, T4, TSH, FT3, CMP #### [facility] [address] [place] [address] Dr. Maggy Irving ALP [Catalytic activity/Vol] 53 U/L Normal 46-116 [facility] Comment on above: Performed By: #### L IPID, T4, TSH, FT3, CMP #### [facility] [address] [place] [address] Dr. Maggy Irving ALT [Catalytic activity/Vol] 43 U/L Normal 16-63 [facility] Comment on above: Performed By: #### L IPID, T4, TSH, FT3, CMP #### [facility] [address] [place] [address] Dr. Maggy Irving Anion gap [Moles/Vol] 12.2 mmol/L Normal [facility] Comment on above: Performed By: #### L IPID, T4, TSH, FT3, CMP #### [facility] [address] [place] [address] Dr. Maggy Irving AST [Catalytic activity/Vol] 22 U/L Normal 15-37 [facility] Comment on above: Performed By: #### L IPID, T4, TSH, FT3, CMP #### [facility] [address] [place] [address] Dr. Maggy Irving Bilirubin [Mass/Vol] 0.6 mg/dL Normal 0.2-1.0 [facility] Comment on above: Performed By: #### L IPID, T4, TSH, FT3, CMP #### [facility] [address] [place] [address] Dr. Maggy Irving Calcium [Mass/Vol] 8.9 mg/dL Normal 8.5-10.1 [facility] Comment on above: Performed By: #### L IPID, T4, TSH, FT3, CMP #### [facility] [address] [address] [address] Maggy Irving Chloride [Moles/Vol] 104 mmol/L Normal 98-107 [facility] Comment on above: Performed By: #### L IPID, T4, TSH, FT3, CMP #### [facility] [address] [place] [address] Dr. Maggy Irving CO2 [Moles/Vol] 28.8 mmol/L Normal 21.0-32.0 [facility] Comment on above: Performed By: #### L IPID, T4, TSH, FT3, CMP #### [facility] [address] [address] [address] Maggy Irving Creatinine [Mass/Vol] 0.83 mg/dL Normal 0.70-1.30 [facility] Comment on above: Performed By: #### L IPID, T4, TSH, FT3, CMP #### [facility] [address] [place] [address] Dr. Maggy Irving EGFR-AF GRENADIAN >60 Normal >=60 [facility] Comment on above: Performed By: #### L IPID, T4, TSH, FT3, CMP #### [facility] [address] [place] [address] Dr. Maggy Irving EGFR-NON AF GRENADIAN >60 Normal >=60 [facility] Comment on above: Performed By: #### L IPID, T4, TSH, FT3, CMP #### [facility] [address] [place] [address] Dr. Maggy Irving Globulin (S) [Mass/Vol] 3.4 g/dL Normal [facility] Comment on above: Performed By: #### L IPID, T4, TSH, FT3, CMP #### [facility] [address] [address] [address] Maggy Irving Glucose [Mass/Vol] 116 mg/dL Critically high 74-106 [facility] Comment on above: Performed By: #### L IPID, T4, TSH, FT3, CMP #### [facility] [address] [place] [address] Dr. Maggy Irving Potassium [Moles/Vol] 4.0 mmol/L Normal 3.5-5.1 [facility] Comment on above: Performed By: #### L IPID, T4, TSH, FT3, CMP #### [facility] [address] [address] [address] Maggy Irving Protein [Mass/Vol] 7.2 g/dL Normal 6.4-8.2 [facility] Comment on above: Performed By: #### L IPID, T4, TSH, FT3, CMP #### [facility] [address] [address] [address] Maggy Irving Sodium [Moles/Vol] 141 mmol/L Normal 136-145 [facility] Comment on above: Performed By: #### L IPID, T4, TSH, FT3, CMP #### [facility] [address] [place] [address] Dr. Maggy Irving Urea nitrogen [Mass/Vol] 17.0 mg/dL Normal 7.0-18.0 [facility] Comment on above: Performed By: #### L IPID, T4, TSH, FT3, CMP #### [facility] [address] [address] [address] Maggy Irving Urea nitrogen/Creatinine [Mass ratio] 20.5 mg/mg Normal [facility] Comment on above: Performed By: #### L IPID, T4, TSH, FT3, CMP #### [facility] [address] [place] [address] Dr. Maggy Irving TSHon 12-07-2022 TSH 5.531 uIU/mL Critically high 0.358-3.740 [facility] Comment on above: Performed By: #### L IPID, T4, TSH, FT3, CMP #### [facility] [address] [place] [address] Dr. Maggy Irving TESTOSTERONE, TOTALon 2021 Testosterone [Mass/Vol] 390 ng/dL Normal 264-916 [facility] Comment on above: Result Comment: Adul t male reference interval is based on a population of healthy nonobese males (BMI <30) between 19 and 39 years old. dave Jacobs.al. JCEM 2017,102;[id number]. PMID: [id number]. Performed By: #### L IPID, T4, TSH, FT3, CMP #### [facility] [address] [place] [address] Dr. Maggy Irving CBC AUTO DIFFon 04-09-2022 BASO # 0.0 103/ul Normal 0.0-0.1 [facility] Comment on above: Performed By: #### L IPID, T4, TSH, FT3, CMP #### [facility] [address] [place] [address] Dr. Maggy Irving Basophils/100 WBC (Bld) 0.2 % Normal 0.2-2.0 [facility] Comment on above: Performed By: #### L IPID, T4, TSH, FT3, CMP #### [facility] [address] [place] [address] Dr. Maggy Irving EO # 0.2 103/ul Normal 0.0-0.7 [facility] Comment on above: Performed By: #### L IPID, T4, TSH, FT3, CMP #### [facility] [address] [place] [address] Dr. Maggy Irving Eosinophils/100 WBC (Bld) 3.1 % Normal 0.9-7.0 [facility] [facility] Comment on above: Performed By: #### L IPID, T4, TSH, FT3, CMP #### [facility] [address] [place] [address] Dr. Maggy Irving Erythrocyte distribution width (RBC) [Ratio] 12.3 % Normal 11.0-15.0 [facility] Comment on above: Performed By: #### L IPID, T4, TSH, FT3, CMP #### [facility] [address] [place] [address] Dr. Maggy Irving Hematocrit (Bld) [Volume fraction] 41.6 % Critically low 42.0-54.0 [facility] Comment on above: Performed By: #### L IPID, T4, TSH, FT3, CMP #### [facility] [address] [place], [place] [id number] Dr. Maggy Irving Hemoglobin (Bld) [Mass/Vol] 14.6 g/dL Normal 14.0-18.0 [facility] Comment on above: Performed By: #### L IPID, T4, TSH, FT3, CMP #### [facility] [address] [place] [address] Dr. Maggy Irving IG # 0.02 10e3/ul Normal 0.00-0.03 [facility] Comment on above: Performed By: #### L IPID, T4, TSH, FT3, CMP #### [facility] [address] [place] [address] Dr. Maggy Irving IG % 0.4 % Normal 0.0-0.5 [facility] Comment on above: Performed By: #### L IPID, T4, TSH, FT3, CMP #### [facility] [address] [place] [address] Dr. Maggy Irving LYMPH # 0.9 103/ul Critically low 1.2-3.8 [facility] Comment on above: Performed By: #### L IPID, T4, TSH, FT3, CMP #### [facility] [address] [place] [address] Dr. Maggy Irving Lymphocytes/100 WBC (Bld) 17.9 % Critically low 20.5-60.0 [facility] Comment on above: Performed By: #### L IPID, T4, TSH, FT3, CMP #### [facility] [address] [place] [address] Dr. Maggy Irving MANUAL DIFF REQ NO Normal [facility] Comment on above: Performed By: #### L IPID, T4, TSH, FT3, CMP #### [facility] [address] [place] [address] Dr. Maggy Irving MCH (RBC) [Entitic mass] 31.1 pg Normal 25.9-34.0 [facility] Comment on above: Performed By: #### L IPID, T4, TSH, FT3, CMP #### [facility] [address] [place] [address] Dr. Maggy Irving MCHC (RBC) [Mass/Vol] 35.1 g/dL Normal 29.9-35.2 [facility] Comment on above: Performed By: #### L IPID, T4, TSH, FT3, CMP #### [facility] [address] [place] [address] Dr. Maggy Irving MCV (RBC) [Entitic vol] 88.5 fL Normal 80.0-94.0 [facility] Comment on above: Performed By: #### L IPID, T4, TSH, FT3, CMP #### [facility] [address] [place] [address] Dr. Maggy Irving MONO # 0.4 103/ul Normal 0.3-0.8 [facility] Comment on above: Performed By: #### L IPID, T4, TSH, FT3, CMP #### [facility] [address] [place] [address] Dr. Maggy Irving Monocytes/100 WBC (Bld) 8.7 % Normal 1.7-12.0 [facility] Comment on above: Performed By: #### L IPID, T4, TSH, FT3, CMP #### [facility] [address] [place] [address] Dr. Maggy Irving NEUT # 3.4 103/ul Normal 1.4-6.5 [facility] Comment on above: Performed By: #### L IPID, T4, TSH, FT3, CMP #### [facility] [address] [place] [address] Dr. Maggy Irving Neutrophils/100 WBC (Bld) 69.7 % Normal 43.0-75.0 [facility] Comment on above: Performed By: #### L IPID, T4, TSH, FT3, CMP #### [facility] [address] [place] [address] Dr. Maggy Irving Platelet mean volume (Bld) [Entitic vol] 9.9 fL Normal 9.5-13.5 [facility] Comment on above: Performed By: #### L IPID, T4, TSH, FT3, CMP #### [facility] [address] [address] [address] Maggy Irving PLT 121 103/ul Critically low 150-450 [facility] Comment on above: Performed By: #### L IPID, T4, TSH, FT3, CMP #### [facility] [address] [address] [address] Maggy Irving RBC 4.70 106/ul Normal 4.70-6.10 [facility] Comment on above: Performed By: #### L IPID, T4, TSH, FT3, CMP #### [facility] [address] [address] [address] Maggy Irving WBC 4.8 103/ul Normal 4.0-11.0 [facility] Comment on above: Performed By: #### L IPID, T4, TSH, FT3, CMP #### [facility] [address] [place] [address] Dr. Maggy Irving FREE T3on 04-09-2022 FREE T3 3.15 pg/mlL Normal 2.18-3.98 [facility] Comment on above: Performed By: #### L IPID, T4, TSH, FT3, CMP #### [facility] [address] [address] [address] Maggy Irving GLYCOHEMOGLOBIN A1Con 2021 ADA RECOMMENDATION SEE BELOW Normal [facility] Comment on above: Result Comment: ADA RECOMMENDED LIMIT 4.0 - 6.0 ADA THERAPEUTIC TARGET < 7.0 ACTION SUGGESTED > 7.0 Performed By: #### L IPID, T4, TSH, FT3, CMP #### [facility] [address] [place] [address] Dr. Maggy Irving Glucose [Mass/Vol] 123 mg/dL Normal [facility] Comment on above: Performed By: #### L IPID, T4, TSH, FT3, CMP #### [facility] [address] [place] [address] Dr. Maggy Irving HbA1c (Bld) [Mass fraction] 5.9 % Normal 4.5-6.2 [facility] Comment on above: Performed By: #### L IPID, T4, TSH, FT3, CMP #### [facility] [address] [address] [address] Maggy Irving LIPID PROFILEon 04-09-2022 CHOL-HDL RATIO NORM SEE BELOW Normal [facility] Comment on above: Result Comment: 3.3 - 4.4 LOW RISK 4.4 - 7.1 AVERAGE RISK 7.1 - 11.0 MODERATE RISK >11.0 HIGH RISK Performed By: #### L IPID, T4, TSH, FT3, CMP #### [facility] [address] [address] [address] Maggy Irving Cholesterol [Mass/Vol] 174 mg/dL Normal <=200 [facility] Comment on above: Performed By: #### L IPID, T4, TSH, FT3, CMP #### [facility] [address] [address] [address] Maggy Irving Cholesterol in HDL [Mass/Vol] 36 mg/dL Critically low 40-60 [facility] Comment on above: Performed By: #### L IPID, T4, TSH, FT3, CMP #### [facility] [address] [address] [address] Maggy Irving Cholesterol in LDL [Mass/Vol] 114.4 mg/dL Normal [facility] Comment on above: Performed By: #### L IPID, T4, TSH, FT3, CMP #### [facility] [address] [address] [address] Maggy Irving Cholesterol.total/Cho lesterol in HDL [Mass ratio] 4.8 {ratio} Normal [facility] Comment on above: Performed By: #### L IPID, T4, TSH, FT3, CMP #### [facility] [address] [address] [address] Maggy Irving HDL NORMAL > or = 60 mg/dl - LO W CARDIOVASCULAR RISK <40 mg/dl - HIGH CARDIOVASCULAR RISK Normal [facility] Comment on above: Performed By: #### L IPID, T4, TSH, FT3, CMP #### [facility] [address] [address] [address] Maggy Irving LDL CALC NORMAL SEE BELOW Normal [facility] Comment on above: Result Comment: <100 mg/dl OPTIMAL 100 - 129 mg/dl NEAR OR ABOVE OPTIMAL 130 - 159 mg/dl BORDERLINE HIGH 160 - 189 mg/dl HIGH >190 mg/dl VERY HIGH Performed By: #### L IPID, T4, TSH, FT3, CMP #### [facility] [address] [address] [address] Maggy Irving Triglyceride [Mass/Vol] 118 mg/dL Normal <=150 [facility] Comment on above: Performed By: #### L IPID, T4, TSH, FT3, CMP #### [facility] [address] [address] [address] Maggy Irving VLDL CALC 23.6 mg/dL Normal [facility] Comment on above: Performed By: #### L IPID, T4, TSH, FT3, CMP #### [facility] [address] [place] [address] Dr. Maggy Irving OCC BLD IMMUNO SCREENon 03-20 OCCULT BLOOD Negative Normal NEGATIVE [facility] Comment on above: Performed By: #### O BSCRN #### [facility] [address] [place] [address] Dr. Maggy Irving PROF 14(COMP METB)on 022 Albumin [Mass/Vol] 3.6 g/dL Normal 3.4-5.0 [facility] Comment on above: Performed By: #### L IPID, T4, TSH, FT3, CMP #### [facility] [address] [address] [address] Maggy Irving Albumin/Globulin [Mass ratio] 1.1 {ratio} Normal [facility] Comment on above: Performed By: #### L IPID, T4, TSH, FT3, CMP #### [facility] [address] [address] [address] Maggy Irving ALP [Catalytic activity/Vol] 47 U/L Normal 46-116 [facility] Comment on above: Performed By: #### L IPID, T4, TSH, FT3, CMP #### [facility] [address] [place] [address] Dr. Maggy Irving ALT [Catalytic activity/Vol] 31 U/L Normal 16-63 [facility] Comment on above: Performed By: #### L IPID, T4, TSH, FT3, CMP #### [facility] [address] [place] [address] Dr. Maggy Irving Anion gap [Moles/Vol] 10.2 mmol/L Normal [facility] Comment on above: Performed By: #### L IPID, T4, TSH, FT3, CMP #### [facility] [address] [place] [address] Dr. Maggy Irving AST [Catalytic activity/Vol] 17 U/L Normal 15-37 [facility] Comment on above: Performed By: #### L IPID, T4, TSH, FT3, CMP #### [facility] [address] [place] [address] Dr. Maggy Irving Bilirubin [Mass/Vol] 0.6 mg/dL Normal 0.2-1.0 [facility] Comment on above: Performed By: #### L IPID, T4, TSH, FT3, CMP #### [facility] [address] [place] [address] Dr. Maggy Irving Calcium [Mass/Vol] 8.1 mg/dL Critically low 8.5-10.1 [facility] Comment on above: Performed By: #### L IPID, T4, TSH, FT3, CMP #### [facility] [address] [place] [address] Dr. Maggy Irving Chloride [Moles/Vol] 105 mmol/L Normal 98-107 [facility] Comment on above: Performed By: #### L IPID, T4, TSH, FT3, CMP #### [facility] [address] [place] [address] Dr. Maggy Irving CO2 [Moles/Vol] 29.6 mmol/L Normal 21.0-32.0 [facility] Comment on above: Performed By: #### L IPID, T4, TSH, FT3, CMP #### [facility] [address] [place] [address] Dr. Maggy Irving Creatinine [Mass/Vol] 0.89 mg/dL Normal 0.70-1.30 [facility] Comment on above: Performed By: #### L IPID, T4, TSH, FT3, CMP #### [facility] [address] [address] [address] Maggy Irving EGFR-AF GRENADIAN >60 Normal >=60 [facility] Comment on above: Performed By: #### L IPID, T4, TSH, FT3, CMP #### [facility] [address] [place] [address] Dr. Maggy Irving EGFR-NON AF GRENADIAN >60 Normal >=60 [facility] Comment on above: Performed By: #### L IPID, T4, TSH, FT3, CMP #### [facility] [address] [place] [address] Dr. Maggy Irving Globulin (S) [Mass/Vol] 3.2 g/dL Normal [facility] Comment on above: Performed By: #### L IPID, T4, TSH, FT3, CMP #### [facility] [address] [place] [address] Dr. Maggy Irving Glucose [Mass/Vol] 110 mg/dL Critically high 74-106 [facility] Comment on above: Performed By: #### L IPID, T4, TSH, FT3, CMP #### [facility] [address] [place] [address] Dr. Maggy Irving Potassium [Moles/Vol] 3.8 mmol/L Normal 3.5-5.1 [facility] Comment on above: Performed By: #### L IPID, T4, TSH, FT3, CMP #### [facility] [address] [address] [address] Maggy Irving Protein [Mass/Vol] 6.8 g/dL Normal 6.4-8.2 [facility] Comment on above: Performed By: #### L IPID, T4, TSH, FT3, CMP #### [facility] [address] [address] [address] Maggy Irving Sodium [Moles/Vol] 141 mmol/L Normal 136-145 [facility] Comment on above: Performed By: #### L IPID, T4, TSH, FT3, CMP #### [facility] [address] [place] [address] Dr. Maggy Irving Urea nitrogen [Mass/Vol] 17.0 mg/dL Normal 7.0-18.0 [facility] Comment on above: Performed By: #### L IPID, T4, TSH, FT3, CMP #### [facility] [address] [place] [address] Dr. Maggy Irving Urea nitrogen/Creatinine [Mass ratio] 19.1 mg/mg Normal [facility] Comment on above: Performed By: #### L IPID, T4, TSH, FT3, CMP #### [facility] [address] [place] [address] Dr. Maggy Irving T4on 04-09-2022 T4 [Mass/Vol] 7.90 ug/dL Normal 4.50-12.10 [facility] Comment on above: Performed By: #### L IPID, T4, TSH, FT3, CMP #### [facility] [address] [place] [address] Dr. Maggy Irving TSHon 04-09-2022 TSH 4.949 uIU/mL Critically high 0.358-3.740 [facility] Comment on above: Performed By: #### L IPID, T4, TSH, FT3, CMP #### [facility] [address] [place] [address] Dr. Maggy Irving Vital Signs Date Time Vital Sign Value Performing Clinician Faci lity 04-06-2024 09:43-0400 Body height 177.8 cm [facility] 04-06-2024 09:43-0400 Body mass index (BMI) [Ratio] 34.4 kg/m2 [facility] 04-06-2024 09:43-0400 Body temperature 98.3 [degF] [facility] 04-06-2024 09:43-0400 Body weight 109.08 kg [facility] 04-06-2024 09:43-0400 Diastolic blood pressure 78 mm[Hg] [facility] 04-06-2024 09:43-0400 Heart rate 87 /min [facility] 04-06-2024 09:43-0400 Respiratory rate 18 /min [facility] 04-06-2024 09:43-0400 SaO2% (BldA) [Mass fraction] 96 % [facility] 04-06-2024 09:43-0400 Systolic blood pressure 146 mm[Hg] [facility] Encounters Encounter Date Encounter Type Care Provider Facility Start: 04-27-2024 End: 04-27-2024 ambulatory Marcella Gross [facility] Work Phone: Start: 04-27-2024 End: 04-27-2024 Departed Referred MD Marcella Gross Work Phone: [facility] Start: 04-06-2024 End: 04-06-2024 ambulatory [facility] Work Phone: Start: 04-06-2024 End: 04-06-2024 Patient encounter procedure [facility] Work Phone: Start: 02-10-2023 End: 02-11-2023 ambulatory IVELISSE ORNELAS Facility:[facility] Start: 02-07-2023 End: 02-07-2023 ambulatory IVELISSE ORNELAS Facility:[facility] Start: 02-06-2023 Encounter for preprocedural laboratory examination IVELISSE ORNELAS [facility] Start: 01-31-2023 End: 02-01-[address] MARCELLA [...] MARCELLA GROSS . Facility:[facility] Start: 04-28-2022 ambulatory IVELSISE ORNELAS Faci lity:[facility] Start: 04-09-2022 End: 04-10-[address] MARCELLA GROSS . Facility:[facility] Procedures Date Procedure Procedure Detail Performing Clinician Start: 04-09-[address] NATHAN GROSS . Comment on above: Performed By: #### L IPID, T4, TSH, FT3, CMP #### [facility] [address] [place] [address] Dr. Maggy Irving Payers Date Payer Category Payer Self-pay 1957 Medicare [id number] 1957 Unknown [id number] 1950 Unknown [id number] 2.16.84 [id number] 1950 Unknown [id number] 2.16.84 [id number] 1950 Unknown [id number] 2.16.84 [id number] 1950 Unknown [id number] 2.16.84 0.1.142650.3.579.2.593 1950 Unknown [id number] 2.16.84 [id number] 1952 Unknown [id number] 2.16.84 [id number] 1950 Unknown [id number] 2.16.84 0.1.262141.3.579.2.593 1952 Unknown [id number] 2.16.84 0.1.580179.3.579.2.593 1952 Unknown [id number] 2.16.84 [id number] 1952 Unknown [id number] 2.16.84 [id number] 1950 Unknown [id number] 2.16.84 [id number] Medicare Medicare [id number] Unknown [id number] 2.16.8 [id number] Social History Date Type Detail Facility Tobacco smoking stat [facility] Unknown if ever smoked [facility] Work Phone: Start: 1950 Sex Assigned At Male [facility] Clinical Note 02-07-2023 Note Date & Type [...] by: OLVIN KHANNA Date: 2023-02-07 09:41 [facility] Evaluation note Note Date & Type Note Facility Evaluation note Diagnosis Onset Date Bacterial conjunctivitis of right eye acute [facility] Work Phone: Summary Purpose Family History No Family History Records Found Relationship Condition Age at Onset Recorded Date/T cornelia father Unknown mother History of stroke Unknown Unknown Advance Directives No Advanced Directives Records Found Advance Directive Response Recorded Date/ Time Advance Directives No April 06 9:22am Chief Complaint and Reason for Visit Chief Complaint poss pink eye right Reason for Visit Bacterial conjunctiv itis of right eye Chief Complaint poss pink eye right Unknown Reason for Visit Bacterial conjunctiv itis of right eye Additional Source Comments (unrecognized sect ion and content) No Status Records FoundNo Status Records Found INFORMATION SOURCE (unrecogn ized section and content) DATE CREATED AUTHOR 02/25/2023 [facility] DATE CREATED AUTHOR AUTHOR'S JAME ATSARA 04/30/2024 [facility] Care Teams (unrecognized sec tion and content) Team Status: Active Member Role Status Dates Marcella Gross MD Primary Care Provider Active Team Status: Inactive Member Role Status Dates Marcella Gross MD Primary Care Provider Active Start: April 06, 2024 End: April 06, 2024 Ramona Mcgill APRN Attending Provider Active Start: April 06, 2024 End: April 06, 2024 Team Status: Inactive Member Role Status Dates Marcella Gross MD Attending Provider Active Sta rt: April 27, 2024 End: April 27, 2024 Goals (unrecognized section and content) Goals may be documented in a n alternate sectionGoals may be documented in an alternate section FOR RECORDS PERTAINING TO PATIENTS [...] BE BASED ON THE PRIMARY CLINICAL RECORDS. [facility]. provides no warranty or guarantee of the accuracy or completeness of information in this document.
== END 2024-05-02 10:19 | disposition home or self-care (01) ==
LOC: EC 10:18
PROVIDERS: PCP Family Medicine; Visit Provider Podiatrist Foot & Ankle Surgery
DX: M25.572 Pain in left ankle and joints of left foot (principal); M25.571 Pain in right ankle and joints of right foot; M19.072 Primary osteoarthritis, left ankle and foot; M19.071 Primary osteoarthritis, right ankle and foot
CPT/HCPCS: 73610; 73630

== ENCOUNTER 2024-05-03 15:26 | Outpatient (OUT) | payer MEDICARE, OTHER, SELFPAY ==
--- NOTE | 2024-05-03 15:32 | XR_ITS ---
The [address] [address] Patient Name: SLIVINO MARVIN MRN: [id number] date: 1950 Sex: M Assigned Patient Location: [facility] Current Patient Location: Accession/Order Number: [id number] Exam Date: 05/03/2024 15:35 Report Date: 05/07/2024 08:11 At the request of: MARCELLA SALAMANCA Procedure: XR hand RT min 3V PROCEDURE: XR hand RT min 3V COMPARISON: None. HISTORY: Ganglion Cyst M67.40 FINDINGS: BONES:No acute fracture or dislocation. Degenerative changes with joint space narrowing and marginal osteophyte formation most significant along the second metatarsal phalangeal joint SOFT TISSUES:Negative. No visible soft tissue swelling. EFFUSION:None visible. OTHER: Negative. XR/XR hand RT min 3V IMPRESSION: Osteoarthritis Electronically authenticated by: PHIL PEOPLES Date: 05/07/2024 08:11
--- OUTSIDE RECORDS SUMMARY | 2024-05-03 15:35 | XMS_ITS | CCD ---
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 [address]: SPEC TYPE: Impression DEPT: ALEXSANDRA Cervantes ENTERED BY: [id number] RECV BY: [id number] ORDERED: PATHREVIEW ORDERED: PATHREVIEW Pathologist Review Abnormal CBC for peripheral blood smear review: -Borderline leukopenia with mild lymphocytopenia -Mild anemia of normocytic type, including few occasional ovalocytes -Mild thrombocytopenia with at least rare large platelet -No obvious morphological abnormality of the leukocyte population, except occasional reactive lymphocytes Comment: -The smear review correspond well with the readings of the hematologic analyzer. The cause of mild pancytopenia in the elderly male patient is not clear but is probably multifactorial in etiology, including or may suggest age or chronic debilitation related bone marrow or hematopoietic hypoplasia, or any other causes of general marrow suppression, requiring clinical correlation. There is no evidence of blast, left shifted granulocytes, or granulocytic dysplasia observed CPT: 37592 -------- -------- Specimen: [id number] Received: 04/30/24 Status: CASS [place]ooer Num: [id number] Spec Type: Impression Subm Dr: Marcella Gross MD Tissues: PATHPER Procedures: PATHREVIEW -------- Patient: Silvino Ojeda Joel [id number] (Continued) -------- Signed (signature on file) ChinAlexys Irving MD 04/30/241945 Normal [facility] CULTURE OTHERon 02-11-2023 CULTURE OTHER Isolate 1 [...] F Trimethoprim/Sulfamet hoxazole <=10 S F Normal [facility] Comment on above: Performed By: #### L IPID, T4, TSH, FT3, CMP #### [facility] [address] [address] [address] Maggy Irving FUNGAL CULTUREon 02-09-2023 Fungus Stain Final report Normal [facility] Comment on above: Performed By: #### L IPID, T4, TSH, FT3, CMP #### [facility] [address] [address] [address] Maggy Irving Result 1 Comment Normal [facility] Comment on above: Result Comment: SUDHIR/ Calcofluor preparation: no fungus observed. Performed By: #### L IPID, T4, TSH, FT3, CMP #### [facility] [address] [address] [address] Maggy Irving ACID FAST SMEAR AND CXon Acid Fast Smear Negative Normal [facility] Comment on above: Performed By: #### A FB #### [facility] [address] [place] [address] Dr. Maggy Irving [employer] Specimen Processing Tissue Grinding [facility] Comment on above: Performed By: #### A FB #### [facility] [address] [place] [address] Dr. Maggy Irving CULTURE ANAEROBICon 02-08-20 CULTURE ANAEROBIC Isolate 1 Finegoldia magna Light growth of Normal [facility] Comment on above: Result Comment: EVID ENCE BASED PRACTICE BY [facility] HAS DEMONSTRATED THAT FINEGOLDIA SPECIES ARE ROUTINELY SUSCEPTIBLE TO PIPERACILLIN-TAZOBACTAM, CEFOXITIN, ERTAPENEM, IMIPENEM METRONIDAZOLE AND VARIABLY RESISTANT TO CLINDAMYCIN. Performed By: #### L IPID, T4, TSH, FT3, CMP #### [facility] [address] [place] [address] Dr. Maggy Irving GRAM STAINon 02-07-2023 COMMENTS NO ORGANISMS OBSERVED [facility] Comment on above: Performed By: #### G STAIN #### [facility] [address] [place] [address] Dr. Maggy Irving DIPHTHEROIDS Normal [facility] Comment on above: Performed By: #### G STAIN #### [facility] [address] [place] [address] Dr. Maggy Irving EPITHELIALS Normal [facility] Comment on above: Performed By: #### G STAIN #### [facility] [address] [address] [address] Maggy Irving FUNGAL ELEMENTS Normal [facility] Comment on above: Performed By: #### G STAIN #### [facility] [address] [address] [address] Maggy Irving GRAM NEG BACILLI Normal [facility] Comment on above: Performed By: #### G STAIN #### [facility] [address] [address] [address] Maggy MENDOZA NEG DIPPLOCOCCI Normal [facility] Comment on above: Performed By: #### G STAIN #### [facility] [address] [place] [address] Dr. Maggy Irving GRAM POS BACILLI [facility] Comment on above: Performed By: #### G STAIN #### [facility] [address] [place] [address] Dr. Maggy Irving GRAM POSITIVE COCCI Normal [facility] Comment on above: Performed By: #### G STAIN #### [facility] [address] [address] [address] Maggy Irving GRAM STAIN SOURCE 5th Metatarsal Bone [facility] Comment on above: Performed By: #### G STAIN #### [facility] [address] [place] [address] Dr. Maggy Irving GS_DIPTH [facility] Comment on above: Performed By: #### G STAIN #### [facility] [address] [place] [address] Dr. Maggy Irving WBC RARE Normal [facility] Comment on above: Performed By: #### G STAIN #### [facility] [address] [place] [address] Dr. Maggy Irving POINT OF CARE GLUCOSEon 01-18 Glucose [Mass/Vol] 114 mg/dL Critically high 74-106 [facility] Comment on above: Performed By: #### P OCGLUC #### [facility] [address] [place] [address] Dr. Maggy Irving Glucose [Mass/Vol] 122 mg/dL Critically high 74-106 [facility] Comment on above: Performed By: #### P OCGLUC #### [facility] [address] [place] [address] Dr. Maggy Irving PROF CHEM 8 (BAS METB)on Anion gap [Moles/Vol] 12.0 mmol/L Normal [facility] Comment on above: Performed By: #### L IPID, T4, TSH, FT3, CMP #### [facility] [address] [address] [address] Maggy Irving Calcium [Mass/Vol] 8.7 mg/dL Normal 8.5-10.1 [facility] Comment on above: Performed By: #### L IPID, T4, TSH, FT3, CMP #### [facility] [address] [place] [address] Dr. Maggy Irving Chloride [Moles/Vol] 104 mmol/L Normal 98-107 [facility] Comment on above: Performed By: #### L IPID, T4, TSH, FT3, CMP #### [facility] [address] [address] [address] Maggy Irving CO2 [Moles/Vol] 28.1 mmol/L Normal 21.0-32.0 [facility] Comment on above: Performed By: #### L IPID, T4, TSH, FT3, CMP #### [facility] [address] [place] [address] Dr. Maggy Irving Creatinine [Mass/Vol] 0.80 mg/dL Normal 0.70-1.30 [facility] Comment on above: Performed By: #### L IPID, T4, TSH, FT3, CMP #### [facility] [address] [place] [address] Dr. Maggy Irving EGFR-AF RWANDAN >60 Normal >=60 [facility] Comment on above: Performed By: #### L IPID, T4, TSH, FT3, CMP #### [facility] [address] [place] [address] Dr. Maggy Irving EGFR-NON AF RWANDAN >60 Normal >=60 [facility] Comment on above: Performed By: #### L IPID, T4, TSH, FT3, CMP #### [facility] [address] [place] [address] Dr. Maggy Irving Glucose [Mass/Vol] 129 mg/dL Critically high 74-106 [facility] Comment on above: Performed By: #### L IPID, T4, TSH, FT3, CMP #### [facility] [address] [place] [address] Dr. Maggy Irving Potassium [Moles/Vol] 4.1 mmol/L Normal 3.5-5.1 [facility] Comment on above: Performed By: #### L IPID, T4, TSH, FT3, CMP #### [facility] [address] [place] [address] Dr. Maggy Irving Sodium [Moles/Vol] 140 mmol/L Normal 136-145 [facility] Comment on above: Performed By: #### L IPID, T4, TSH, FT3, CMP #### [facility] [address] [place] [address] Dr. Maggy Irving Urea nitrogen [Mass/Vol] 20.0 mg/dL Critically high 7.0-18.0 [facility] Comment on above: Performed By: #### L IPID, T4, TSH, FT3, CMP #### [facility] [address] [place] [address] Dr. Maggy Irving Urea nitrogen/Creatinine [Mass ratio] 25.0 mg/mg Normal [facility] Comment on above: Performed By: #### L IPID, T4, TSH, FT3, CMP #### [facility] [address] [place] [address] Dr. Maggy Irving FREE T3on 01-07-2023 FREE T3 3.24 pg/mlL Normal 2.18-3.98 [facility] Comment on above: Performed By: #### L IPID, T4, TSH, FT3, CMP #### [facility] [address] [place] [address] Dr. Maggy Irving T4on 01-07-2023 T4 [Mass/Vol] 9.10 ug/dL Normal 4.50-12.10 [facility] Comment on above: Performed By: #### L IPID, T4, TSH, FT3, CMP #### [facility] [address], [place] [address] Dr. Maggy Irving TSHon 01-07-2023 TSH 5.957 uIU/mL Critically high 0.358-3.740 [facility] Comment on above: Performed By: #### L IPID, T4, TSH, FT3, CMP #### [facility] [address], [place] [address] Dr. Maggy Irving NM STRESS/REST MULTIon 01-03 NM STRESS/REST MULTI Patient: SILVINO OJEDA Exam Date: 01/03/2023 : 1950 Gender:M Ordering : DR MARCELLA GROSS . Admission #: [id number] Family : Order #: [id number] CLICK HERE TO VIEW EXAM RADIOLOGY REPORT [...] Khanna M.D. on 01/04/2023 at 07:45 Normal [facility] ECHOCARDIO M/2D COMPLETEon 0 12-21-2022 ECHOCARDIO M/2D COMPLETE Patient: SILVINO OJEDA Exam Date: 12/21/2022 : 1950 Gender:M Ordering : DR MARCELLA GROSS . Admission #: [id number] Family : Order #: [id number] CLICK HERE TO VIEW EXAM ECHOCARDIOGRAM REPORT [...] M.D. on 12/23/2022 at 18:05 Normal [facility] BNPon 12-07-2022 Natriuretic peptide B (Bld) [Mass/Vol] 37.0 pg/mL Normal <=900.0 [facility] Comment on above: Performed By: #### L IPID, T4, TSH, FT3, CMP #### [facility] [address] [place] [address] Dr. Maggy Irving CBC AUTO DIFFon 12-07-2022 BASO # 0.0 103/ul Normal 0.0-0.1 [facility] Comment on above: Performed By: #### L IPID, T4, TSH, FT3, CMP #### [facility] [address] [place] [address] Dr. Maggy Irving Basophils/100 WBC (Bld) 0.2 % Normal 0.2-2.0 [facility] Comment on above: Performed By: #### L IPID, T4, TSH, FT3, CMP #### [facility] [address] [place] [address] Dr. Maggy Irving EO # 0.2 103/ul Normal 0.0-0.7 [facility] Comment on above: Performed By: #### L IPID, T4, TSH, FT3, CMP #### [facility] [address] [place] [address] Dr. Maggy Irving Eosinophils/100 WBC (Bld) 3.7 % Normal 0.9-7.0 [facility] Comment on above: Performed By: #### L IPID, T4, TSH, FT3, CMP #### [facility] [address] [place] [address] Dr. Maggy Irving Erythrocyte distribution width (RBC) [Ratio] 11.9 % Normal 11.0-15.0 [facility] Comment on above: Performed By: #### L IPID, T4, TSH, FT3, CMP #### [facility] [address] [place] [address] Dr. Maggy Irving Hematocrit (Bld) [Volume fraction] 39.7 % Critically low 42.0-54.0 [facility] Comment on above: Performed By: #### L IPID, T4, TSH, FT3, CMP #### [facility] [address] [place] [address] Dr. Maggy Irving Hemoglobin (Bld) [Mass/Vol] 14.0 g/dL Normal 14.0-18.0 [facility] Comment on above: Performed By: #### L IPID, T4, TSH, FT3, CMP #### [facility] [address] [place] [address] Dr. Maggy Irving IG # 0.02 10e3/ul Normal 0.00-0.03 [facility] Comment on above: Performed By: #### L IPID, T4, TSH, FT3, CMP #### [facility] [address] [place] [address] Dr. Maggy Irving IG % 0.5 % Normal 0.0-0.5 [facility] Comment on above: Performed By: #### L IPID, T4, TSH, FT3, CMP #### [facility] [address] [place] [address] Dr. Maggy Irving LYMPH # 0.9 103/ul Critically low 1.2-3.8 [facility] Comment on above: Performed By: #### L IPID, T4, TSH, FT3, CMP #### [facility] [address] [place] [address] Dr. Maggy Irving Lymphocytes/100 WBC (Bld) 21.1 % Normal 20.5-60.0 [facility] Comment on above: Performed By: #### L IPID, T4, TSH, FT3, CMP #### [facility] [address] [place] [address] Dr. Maggy Irving MANUAL DIFF REQ NO Normal [facility] Comment on above: Performed By: #### L IPID, T4, TSH, FT3, CMP #### [facility] [address] [place] [address] Dr. Maggy Irving MCH (RBC) [Entitic mass] 30.5 pg Normal 25.9-34.0 [facility] Comment on above: Performed By: #### L IPID, T4, TSH, FT3, CMP #### [facility] [address] [place] [address] Dr. Maggy Irving MCHC (RBC) [Mass/Vol] 35.3 g/dL Critically high 29.9-35.2 [facility] Comment on above: Performed By: #### L IPID, T4, TSH, FT3, CMP #### [facility] [address] [place] [address] Dr. Maggy Irving MCV (RBC) [Entitic vol] 86.5 fL Normal 80.0-94.0 [facility] Comment on above: Performed By: #### L IPID, T4, TSH, FT3, CMP #### [facility] [address] [place] [address] Dr. Maggy Irving MONO # 0.4 103/ul Normal 0.3-0.8 [facility] Comment on above: Performed By: #### L IPID, T4, TSH, FT3, CMP #### [facility] [address] [place] [address] Dr. Maggy Irving Monocytes/100 WBC (Bld) 8.7 % Normal 1.7-12.0 [facility] Comment on above: Performed By: #### L IPID, T4, TSH, FT3, CMP #### [facility] [address] [place] [address] Dr. Maggy Irving NEUT # 2.9 103/ul Normal 1.4-6.5 [facility] Comment on above: Performed By: #### L IPID, T4, TSH, FT3, CMP #### [facility] [address] [place] [address] Dr. Maggy Irving Neutrophils/100 WBC (Bld) 65.8 % Normal 43.0-75.0 [facility] Comment on above: Performed By: #### L IPID, T4, TSH, FT3, CMP #### [facility] [address] [place] [address] Dr. Maggy Irving Platelet mean volume (Bld) [Entitic vol] 9.9 fL Normal 9.5-13.5 [facility] Comment on above: Performed By: #### L IPID, T4, TSH, FT3, CMP #### [facility] [address] [address] [address] Maggy Irving PLT 128 103/ul Critically low 150-450 [facility] Comment on above: Performed By: #### L IPID, T4, TSH, FT3, CMP #### [facility] [address] [address] [address] Maggy Irving RBC 4.59 106/ul Critically low 4.70-6.10 [facility] Comment on above: Performed By: #### L IPID, T4, TSH, FT3, CMP #### [facility] [address] [address] [address] Maggy Irving WBC 4.4 103/ul Normal 4.0-11.0 [facility] Comment on above: Performed By: #### L IPID, T4, TSH, FT3, CMP #### [facility] [address] [place] [address] Dr. Maggy Irving FREE THYROXINE INDEX T7on FTI 2.72 Normal 1.30-4.50 [facility] Comment on above: Performed By: #### L IPID, T4, TSH, FT3, CMP #### [facility] [address] [place] [address] Dr. Maggy Irving T3U 34.0 % Normal 33.0-40.0 [facility] Comment on above: Performed By: #### L IPID, T4, TSH, FT3, CMP #### [facility] [address] [place] [address] Dr. Maggy Irving T4 [Mass/Vol] 8.00 ug/dL Normal 4.50-12.10 [facility] Comment on above: Performed By: #### L IPID, T4, TSH, FT3, CMP #### [facility] [address] [place] [address] Dr. Maggy Irving IRONon 12-07-2022 Iron [Mass/Vol] 134.0 ug/dL Normal 65.0-175.0 [facility] Comment on above: Performed By: #### L IPID, T4, TSH, FT3, CMP #### [facility] [address] [place] [address] Dr. Maggy Irving LIPID PROFILEon 12-07-2022 CHOL-HDL RATIO NORM SEE BELOW Normal [facility] Comment on above: Result Comment: 3.3 - 4.4 LOW RISK 4.4 - 7.1 AVERAGE RISK 7.1 - 11.0 MODERATE RISK >11.0 HIGH RISK Performed By: #### L IPID, T4, TSH, FT3, CMP #### [facility] [address] [place] [address] Dr. Maggy Irving Cholesterol [Mass/Vol] 180 mg/dL Normal <=200 [facility] Comment on above: Performed By: #### L IPID, T4, TSH, FT3, CMP #### [facility] [address] [place] [address] Dr. Maggy Irving Cholesterol in HDL [Mass/Vol] 37 mg/dL Critically low 40-60 [facility] Comment on above: Performed By: #### L IPID, T4, TSH, FT3, CMP #### [facility] [address] [place] [address] Dr. Maggy Irving Cholesterol in LDL [Mass/Vol] 95.2 mg/dL Normal [facility] Comment on above: Performed By: #### L IPID, T4, TSH, FT3, CMP #### [facility] [address] [place] [address] Dr. Maggy Irving Cholesterol.total/Ch olesterol in HDL [Mass ratio] 4.9 {ratio} Normal [facility] Comment on above: Performed By: #### L IPID, T4, TSH, FT3, CMP #### [facility] [address] [place] [address] Dr. Maggy Irving HDL NORMAL > or = 60 mg/dl - LO W CARDIOVASCULAR RISK <40 mg/dl - HIGH CARDIOVASCULAR RISK Normal [facility] Comment on above: Performed By: #### L IPID, T4, TSH, FT3, CMP #### [facility] [address] [place] [address] Dr. Maggy Irving LDL CALC NORMAL SEE BELOW Normal [facility] Comment on above: Result Comment: <100 mg/dl OPTIMAL 100 - 129 mg/dl NEAR OR ABOVE OPTIMAL 130 - 159 mg/dl BORDERLINE HIGH 160 - 189 mg/dl HIGH >190 mg/dl VERY HIGH Performed By: #### L IPID, T4, TSH, FT3, CMP #### [facility] [address] [address] [address] Maggy Irving Triglyceride [Mass/Vol] 239 mg/dL Critically high <=150 [facility] Comment on above: Performed By: #### L IPID, T4, TSH, FT3, CMP #### [facility] [address] [place] [address] Dr. Maggy Irving VLDL CALC 47.8 mg/dL Normal [facility] Comment on above: Performed By: #### L IPID, T4, TSH, FT3, CMP #### [facility] [address] [place] [address] Dr. Maggy Irving PROF 14(COMP METB)on 023 Albumin [Mass/Vol] 3.8 g/dL Normal 3.4-5.0 [facility] Comment on above: Performed By: #### L IPID, T4, TSH, FT3, CMP #### [facility] [address] [place] [address] Dr. Maggy Irving Albumin/Globulin [Mass ratio] 1.1 {ratio} Normal [facility] Comment on above: Performed By: #### L IPID, T4, TSH, FT3, CMP #### [facility] [address] [place] [address] Dr. Mgagy Irving ALP [Catalytic activity/Vol] 53 U/L Normal 46-116 [facility] Comment on above: Performed By: #### L IPID, T4, TSH, FT3, CMP #### [facility] [address] [place] [address] Dr. Maggy Irving ALT [Catalytic activity/Vol] 43 U/L Normal 16-63 [facility] Comment on above: Performed By: #### L IPID, T4, TSH, FT3, CMP #### [facility] [address] [place] [address] Dr. Maggy Irving Anion gap [Moles/Vol] 12.2 mmol/L Normal [facility] Comment on above: Performed By: #### L IPID, T4, TSH, FT3, CMP #### [facility] [address] [place] [address] Dr. Maggy Irving AST [Catalytic activity/Vol] 22 U/L Normal 15-37 [facility] Comment on above: Performed By: #### L IPID, T4, TSH, FT3, CMP #### [facility] [address] [place] [address] Dr. Maggy Irving Bilirubin [Mass/Vol] 0.6 mg/dL Normal 0.2-1.0 [facility] Comment on above: Performed By: #### L IPID, T4, TSH, FT3, CMP #### [facility] [address] [place] [address] Dr. Maggy Irving Calcium [Mass/Vol] 8.9 mg/dL Normal 8.5-10.1 [facility] Comment on above: Performed By: #### L IPID, T4, TSH, FT3, CMP #### [facility] [address] [place] [address] Dr. Maggy Irving Chloride [Moles/Vol] 104 mmol/L Normal 98-107 [facility] Comment on above: Performed By: #### L IPID, T4, TSH, FT3, CMP #### [facility] [address] [place] [address] Dr. Maggy Irving CO2 [Moles/Vol] 28.8 mmol/L Normal 21.0-32.0 [facility] Comment on above: Performed By: #### L IPID, T4, TSH, FT3, CMP #### [facility] [address] [place] [address] Dr. Maggy Irving Creatinine [Mass/Vol] 0.83 mg/dL Normal 0.70-1.30 [facility] Comment on above: Performed By: #### L IPID, T4, TSH, FT3, CMP #### [facility] [address] [address] [address] Maggy Irving EGFR-AF RWANDAN >60 Normal >=60 [facility] Comment on above: Performed By: #### L IPID, T4, TSH, FT3, CMP #### [facility] [address] [place] [address] Dr. Maggy Irving EGFR-NON AF RWANDAN >60 Normal >=60 [facility] Comment on above: Performed By: #### L IPID, T4, TSH, FT3, CMP #### [facility] [address] [place] [address] Dr. Maggy Irving Globulin (S) [Mass/Vol] 3.4 g/dL Normal [facility] Comment on above: Performed By: #### L IPID, T4, TSH, FT3, CMP #### [facility] [address] [place] [address] Dr. Maggy Irving Glucose [Mass/Vol] 116 mg/dL Critically high 74-106 [facility] Comment on above: Performed By: #### L IPID, T4, TSH, FT3, CMP #### [facility] [address] [place] [address] Dr. Maggy Irving Potassium [Moles/Vol] 4.0 mmol/L Normal 3.5-5.1 [facility] Comment on above: Performed By: #### L IPID, T4, TSH, FT3, CMP #### [facility] [address] [address] [address] Maggy Irving Protein [Mass/Vol] 7.2 g/dL Normal 6.4-8.2 [facility] Comment on above: Performed By: #### L IPID, T4, TSH, FT3, CMP #### [facility] [address] [place] [address] Dr. Maggy Irving Sodium [Moles/Vol] 141 mmol/L Normal 136-145 [facility] Comment on above: Performed By: #### L IPID, T4, TSH, FT3, CMP #### [facility] [address] [place] [address] Dr. Maggy Irving Urea nitrogen [Mass/Vol] 17.0 mg/dL Normal 7.0-18.0 [facility] Comment on above: Performed By: #### L IPID, T4, TSH, FT3, CMP #### [facility] [address] [place] [address] Dr. Maggy Irving Urea nitrogen/Creatinine [Mass ratio] 20.5 mg/mg Normal [facility] Comment on above: Performed By: #### L IPID, T4, TSH, FT3, CMP #### [facility] [address] [place] [address] Dr. Maggy Irving TSHon 12-07-2022 TSH 5.531 uIU/mL Critically high 0.358-3.740 [facility] Comment on above: Performed By: #### L IPID, T4, TSH, FT3, CMP #### [facility] [address] [place] [address] Dr. Maggy Irving TESTOSTERONE, TOTALon 2021 Testosterone [Mass/Vol] 390 ng/dL Normal 264-916 [facility] Comment on above: Result Comment: Adul t male reference interval is based on a population of healthy nonobese males (BMI <30) between 19 and 39 years old. Reynaldo et.al. JCEM 2017,102;8960-5416. PMID: [id number]. Performed By: #### L IPID, T4, TSH, FT3, CMP #### [facility] [address] [place] [address] Dr. Maggy Irving CBC AUTO DIFFon 04-09-2022 BASO # 0.0 103/ul Normal 0.0-0.1 [facility] Comment on above: Performed By: #### L IPID, T4, TSH, FT3, CMP #### [facility] [address] [place] [address] Dr. Maggy Irving Basophils/100 WBC (Bld) 0.2 % Normal 0.2-2.0 [facility] Comment on above: Performed By: #### L IPID, T4, TSH, FT3, CMP #### [facility] [address] [place] [address] Dr. Maggy Irving EO # 0.2 103/ul Normal 0.0-0.7 [facility] Comment on above: Performed By: #### L IPID, T4, TSH, FT3, CMP #### [facility] [address] [place] [address] Dr. Maggy Irving Eosinophils/100 WBC (Bld) 3.1 % Normal 0.9-7.0 [facility] Comment on above: Performed By: #### L IPID, T4, TSH, FT3, CMP #### [facility] [address] [place] [address] Dr. Maggy Irving Erythrocyte distribution width (RBC) [Ratio] 12.3 % Normal 11.0-15.0 [facility] Comment on above: Performed By: #### L IPID, T4, TSH, FT3, CMP #### [facility] [address] [place] [address] Dr. Maggy Irving Hematocrit (Bld) [Volume fraction] 41.6 % Critically low 42.0-54.0 [facility] Comment on above: Performed By: #### L IPID, T4, TSH, FT3, CMP #### [facility] [address] [place] [address] Dr. Maggy Irving Hemoglobin (Bld) [Mass/Vol] 14.6 g/dL Normal 14.0-18.0 [facility] Comment on above: Performed By: #### L IPID, T4, TSH, FT3, CMP #### [facility] [address] [place] [address] Dr. Maggy Irving IG # 0.02 10e3/ul Normal 0.00-0.03 [facility] Comment on above: Performed By: #### L IPID, T4, TSH, FT3, CMP #### [facility] [address] [place] [address] Dr. Maggy Irving IG % 0.4 % Normal 0.0-0.5 [facility] Comment on above: Performed By: #### L IPID, T4, TSH, FT3, CMP #### [facility] [address] [place] [address] Dr. Maggy Irving LYMPH # 0.9 103/ul Critically low 1.2-3.8 [facility] Comment on above: Performed By: #### L IPID, T4, TSH, FT3, CMP #### [facility] [address] [place] [address] Dr. Maggy Irving Lymphocytes/100 WBC (Bld) 17.9 % Critically low 20.5-60.0 [facility] Comment on above: Performed By: #### L IPID, T4, TSH, FT3, CMP #### [facility] [address] [place] [address] Dr. Maggy Irving MANUAL DIFF REQ NO Normal [facility] Comment on above: Performed By: #### L IPID, T4, TSH, FT3, CMP #### [facility] [address] [place] [address] Dr. Maggy Irving MCH (RBC) [Entitic mass] 31.1 pg Normal 25.9-34.0 [facility] Comment on above: Performed By: #### L IPID, T4, TSH, FT3, CMP #### [facility] [address] [place] [address] Dr. Maggy Irving MCHC (RBC) [Mass/Vol] 35.1 g/dL Normal 29.9-35.2 [facility] Comment on above: Performed By: #### L IPID, T4, TSH, FT3, CMP #### [facility] [address] [place] [address] Dr. Maggy Irving MCV (RBC) [Entitic vol] 88.5 fL Normal 80.0-94.0 [facility] Comment on above: Performed By: #### L IPID, T4, TSH, FT3, CMP #### [facility] [address] [place] [address] Dr. Maggy Irving MONO # 0.4 103/ul Normal 0.3-0.8 [facility] Comment on above: Performed By: #### L IPID, T4, TSH, FT3, CMP #### [facility] [address] [place] [address] Dr. Maggy Irving Monocytes/100 WBC (Bld) 8.7 % Normal 1.7-12.0 [facility] Comment on above: Performed By: #### L IPID, T4, TSH, FT3, CMP #### [facility] [address] [place] [address] Dr. Maggy Irving NEUT # 3.4 103/ul Normal 1.4-6.5 [facility] Comment on above: Performed By: #### L IPID, T4, TSH, FT3, CMP #### [facility] [address] [place] [address] Dr. Maggy Irving Neutrophils/100 WBC (Bld) 69.7 % Normal 43.0-75.0 [facility] Comment on above: Performed By: #### L IPID, T4, TSH, FT3, CMP #### [facility] [address] [place] [address] Dr. Maggy Irving Platelet mean volume (Bld) [Entitic vol] 9.9 fL Normal 9.5-13.5 [facility] Comment on above: Performed By: #### L IPID, T4, TSH, FT3, CMP #### [facility] [address] [place] [address] Dr. Maggy Irving PLT 121 103/ul Critically low 150-450 [facility] Comment on above: Performed By: #### L IPID, T4, TSH, FT3, CMP #### [facility] [address] [place] [address] Dr. Maggy Irving RBC 4.70 106/ul Normal 4.70-6.10 [facility] Comment on above: Performed By: #### L IPID, T4, TSH, FT3, CMP #### [facility] [address] [place] [address] Dr. Maggy Irving WBC 4.8 103/ul Normal 4.0-11.0 [facility] Comment on above: Performed By: #### L IPID, T4, TSH, FT3, CMP #### [facility] [address] [address] [address] Maggy Irving FREE T3on 04-09-2022 FREE T3 3.15 pg/mlL Normal 2.18-3.98 [facility] Comment on above: Performed By: #### L IPID, T4, TSH, FT3, CMP #### [facility] [address] [address] [address] Maggy Irving GLYCOHEMOGLOBIN A1Con 2021 ADA RECOMMENDATION SEE BELOW Normal [facility] Comment on above: Result Comment: ADA RECOMMENDED LIMIT 4.0 - 6.0 ADA THERAPEUTIC TARGET < 7.0 ACTION SUGGESTED > 7.0 Performed By: #### L IPID, T4, TSH, FT3, CMP #### [facility] [address] [place] [address] Dr. Maggy Irving Glucose [Mass/Vol] 123 mg/dL Normal [facility] Comment on above: Performed By: #### L IPID, T4, TSH, FT3, CMP #### [facility] [address] [place] [address] Dr. Maggy Irving HbA1c (Bld) [Mass fraction] 5.9 % Normal 4.5-6.2 [facility] Comment on above: Performed By: #### L IPID, T4, TSH, FT3, CMP #### [facility] [address] [place] [address] Dr. Maggy Irving LIPID PROFILEon 04-09-2022 CHOL-HDL RATIO NORM SEE BELOW Normal [facility] Comment on above: Result Comment: 3.3 - 4.4 LOW RISK 4.4 - 7.1 AVERAGE RISK 7.1 - 11.0 MODERATE RISK >11.0 HIGH RISK Performed By: #### L IPID, T4, TSH, FT3, CMP #### [facility] [address] [place] [address] Dr. Maggy Irving Cholesterol [Mass/Vol] 174 mg/dL Normal <=200 [facility] Comment on above: Performed By: #### L IPID, T4, TSH, FT3, CMP #### [facility] [address] [address] [address] Maggy Irving Cholesterol in HDL [Mass/Vol] 36 mg/dL Critically low 40-60 [facility] Comment on above: Performed By: #### L IPID, T4, TSH, FT3, CMP #### [facility] [address] [address] [address] Maggy Irving Cholesterol in LDL [Mass/Vol] 114.4 mg/dL Normal [facility] Comment on above: Performed By: #### L IPID, T4, TSH, FT3, CMP #### [facility] [address] [address] [address] Maggy Irving Cholesterol.total/Ch olesterol in HDL [Mass ratio] 4.8 {ratio} Normal [facility] Comment on above: Performed By: #### L IPID, T4, TSH, FT3, CMP #### [facility] [address] [place] [address] Dr. Maggy Irving HDL NORMAL > or = 60 mg/dl - LO W CARDIOVASCULAR RISK <40 mg/dl - HIGH CARDIOVASCULAR RISK Normal [facility] Comment on above: Performed By: #### L IPID, T4, TSH, FT3, CMP #### [facility] [address] [address] [address] Maggy Irving LDL CALC NORMAL SEE BELOW Normal [facility] Comment on above: Result Comment: <100 mg/dl OPTIMAL 100 - 129 mg/dl NEAR OR ABOVE OPTIMAL 130 - 159 mg/dl BORDERLINE HIGH 160 - 189 mg/dl HIGH >190 mg/dl VERY HIGH Performed By: #### L IPID, T4, TSH, FT3, CMP #### [facility] [address] [address] [address] Maggy Irving Triglyceride [Mass/Vol] 118 mg/dL Normal <=150 [facility] Comment on above: Performed By: #### L IPID, T4, TSH, FT3, CMP #### [facility] [address] [address] [address] Maggy Irving VLDL CALC 23.6 mg/dL Normal [facility] Comment on above: Performed By: #### L IPID, T4, TSH, FT3, CMP #### [facility] [address] [place] [address] Dr. Maggy Irving OCC BLD IMMUNO SCREENon 03-20 OCCULT BLOOD Negative Normal NEGATIVE [facility] Comment on above: Performed By: #### O BSCRN #### [facility] [address] [place] [address] Dr. Maggy Irving PROF 14(COMP METB)on 022 Albumin [Mass/Vol] 3.6 g/dL Normal 3.4-5.0 [facility] Comment on above: Performed By: #### L IPID, T4, TSH, FT3, CMP #### [facility] [address] [place] [address] Dr. Maggy Irving Albumin/Globulin [Mass ratio] 1.1 {ratio} Normal [facility] Comment on above: Performed By: #### L IPID, T4, TSH, FT3, CMP #### [facility] [address] [place] [address] Dr. Maggy Irving ALP [Catalytic activity/Vol] 47 U/L Normal 46-116 [facility] Comment on above: Performed By: #### L IPID, T4, TSH, FT3, CMP #### [facility] [address] [place] [address] Dr. Maggy Irving ALT [Catalytic activity/Vol] 31 U/L Normal 16-63 [facility] Comment on above: Performed By: #### L IPID, T4, TSH, FT3, CMP #### [facility] [address] [place] [address] Dr. Maggy Irving Anion gap [Moles/Vol] 10.2 mmol/L Normal [facility] Comment on above: Performed By: #### L IPID, T4, TSH, FT3, CMP #### [facility] [address] [place] [address] Dr. Maggy Irving AST [Catalytic activity/Vol] 17 U/L Normal 15-37 [facility] Comment on above: Performed By: #### L IPID, T4, TSH, FT3, CMP #### [facility] [address] [place] [address] Dr. Maggy Irving Bilirubin [Mass/Vol] 0.6 mg/dL Normal 0.2-1.0 [facility] Comment on above: Performed By: #### L IPID, T4, TSH, FT3, CMP #### [facility] [address] [place] [address] Dr. Maggy Irving Calcium [Mass/Vol] 8.1 mg/dL Critically low 8.5-10.1 [facility] Comment on above: Performed By: #### L IPID, T4, TSH, FT3, CMP #### [facility] [address] [place] [address] Dr. Maggy Irving Chloride [Moles/Vol] 105 mmol/L Normal 98-107 [facility] Comment on above: Performed By: #### L IPID, T4, TSH, FT3, CMP #### [facility] [address] [place] [address] Dr. Maggy Irving CO2 [Moles/Vol] 29.6 mmol/L Normal 21.0-32.0 [facility] Comment on above: Performed By: #### L IPID, T4, TSH, FT3, CMP #### [facility] [address] [place] [address] Dr. Maggy Irving Creatinine [Mass/Vol] 0.89 mg/dL Normal 0.70-1.30 [facility] Comment on above: Performed By: #### L IPID, T4, TSH, FT3, CMP #### [facility] [address] [place] [address] Dr. Maggy Irving EGFR-AF RWANDAN >60 Normal >=60 [facility] Comment on above: Performed By: #### L IPID, T4, TSH, FT3, CMP #### [facility] [address] [place] [address] Dr. Maggy Irving EGFR-NON AF RWANDAN >60 Normal >=60 [facility] Comment on above: Performed By: #### L IPID, T4, TSH, FT3, CMP #### [facility] [address] [address] [address] Maggy Irving Globulin (S) [Mass/Vol] 3.2 g/dL Normal [facility] Comment on above: Performed By: #### L IPID, T4, TSH, FT3, CMP #### [facility] [address] [place] [address] Dr. Maggy Irving Glucose [Mass/Vol] 110 mg/dL Critically high 74-106 [facility] Comment on above: Performed By: #### L IPID, T4, TSH, FT3, CMP #### [facility] [address] [place] [address] Dr. Maggy Irving Potassium [Moles/Vol] 3.8 mmol/L Normal 3.5-5.1 [facility] Comment on above: Performed By: #### L IPID, T4, TSH, FT3, CMP #### [facility] [address] [place] [address] Dr. Maggy Irving Protein [Mass/Vol] 6.8 g/dL Normal 6.4-8.2 [facility] Comment on above: Performed By: #### L IPID, T4, TSH, FT3, CMP #### [facility] [address] [place] [address] Dr. Maggy Irving Sodium [Moles/Vol] 141 mmol/L Normal 136-145 [facility] Comment on above: Performed By: #### L IPID, T4, TSH, FT3, CMP #### [facility] [address] [place] [address] Dr. Maggy Irving Urea nitrogen [Mass/Vol] 17.0 mg/dL Normal 7.0-18.0 [facility] Comment on above: Performed By: #### L IPID, T4, TSH, FT3, CMP #### [facility] [address] [place] [address] Dr. Maggy Irving Urea nitrogen/Creatinine [Mass ratio] 19.1 mg/mg Normal [facility] Comment on above: Performed By: #### L IPID, T4, TSH, FT3, CMP #### [facility] [address] [place], [place] [address] Dr. Maggy Irivng T4on 04-09-2022 T4 [Mass/Vol] 7.90 ug/dL Normal 4.50-12.10 [facility] Comment on above: Performed By: #### L IPID, T4, TSH, FT3, CMP #### [facility] [address] [address] [address] Maggy Irving TSHon 04-09-2022 TSH 4.949 uIU/mL Critically high 0.358-3.740 [facility] Comment on above: Performed By: #### L IPID, T4, TSH, FT3, CMP #### [facility] [address] [address] [address] Maggy Irving Vital Signs Date Time Vital Sign Value Performing Clinician Faci lity 04-06-2024 09:43-0400 Body height 177.8 cm [facility] 04-06-2024 09:43-0400 Body mass index (BMI) [Ratio] 34.4 kg/m2 [facility] 04-06-2024 09:43-0400 Body temperature 98.3 [degF] [facility] 04-06-2024 09:43-0400 Body weight 109.08 kg [facility] 04-06-2024 09:43-0400 Diastolic blood pressure 78 mm[Hg] [facility] 04-06-2024 09:43-0400 Heart rate 87 /min [facility] 04-06-2024 09:43-0400 Respiratory rate 18 /min [facility] 04-06-2024 09:43-0400 SaO2% (BldA) [Mass fraction] 96 % [facility] 04-06-2024 09:43-0400 Systolic blood pressure 146 mm[Hg] [facility] Encounters Encounter Date Encounter Type Care Provider Facility Start: 04-27-2024 End: 04-27-2024 ambulatory Marcella Gross [facility] Work Phone: Start: 04-27-2024 End: 04-27-2024 Departed Referred MD Marcella Gross Work Phone: [facility] Start: 04-06-2024 End: 04-06-2024 ambulatory [facility] Work Phone: Start: 04-06-2024 End: 04-06-2024 Patient encounter procedure [facility] Work Phone: Start: 02-10-2023 End: 02-11-2023 ambulatory IVELISSE ORNELAS Facility:[facility] Start: 02-07-2023 End: 02-07-2023 ambulatory IVELISSE ORNELAS Facility:[facility] Start: 02-06-2023 Encounter for preprocedural laboratory examination IVELISSE ORNELAS [facility] Start: 01-31-2023 End: 02-01-[address] MARCELLA [...] L IPID, T4, TSH, FT3, CMP #### [facility] [address] [place] [address] Dr. Maggy Irving Payers Date Payer Category Payer Self-pay 1957 Medicare [id number] 1957 Unknown [id number] 1950 Unknown [id number] 2.16.84 [id number] 1950 Unknown [id number] 2.16.84 [id number] 1950 Unknown [id number] 2.16.84 [id number] 1952 Unknown [id number] 2.16.84 [id number] 1952 Unknown [id number] 2.16.84 [id number] 1952 Unknown [id number] 2.16.84 [id number] 1952 Unknown [id number] 2.16.84 0.1.111460.3.579.2.593 1952 Unknown [id number] 2.16.84 0.1.449988.3.579.2.593 1952 Unknown [id number] 2.16.84 [id number] 1952 Unknown [id number] 2.16.84 [id number] 1950 Unknown [id number] 2.16.84 [id number] Medicare Medicare [id number] [id number] Unknown [id number] 2.16.8 [id number] Social History Date Type Detail Facility Tobacco smoking stat [facility] Unknown if ever smoked [facility] Work Phone: Start: 1950 Sex Assigned At Male F [facility] Clinical Note 02-07-2023 Note Date & [...] authenticated by: OLVIN KHANNA Date: 2023-02-07 09:41 [facility] Evaluation note Note Date & Type Note Facility Evaluation note Diagnosis Onset Date Bacterial conjunctivitis of right eye acute [facility] Work Phone: Summary Purpose Family History No [...] and content) DATE CREATED AUTHOR 02/25/2023 [facility] DATE CREATED AUTHOR AUTHOR'S ORGANIZ ATION 05/02/2024 [facility] Care Teams (unrecognized sec tion [...] BE BASED ON THE PRIMARY CLINICAL RECORDS. [facility] [employer] [facility]. provides no warranty or guarantee of the accuracy or completeness of information in this document.
== END 2024-05-03 15:27 | disposition home or self-care (01) ==
LOC: LAB 15:27 → RAD 15:28
PROVIDERS: PCP Family Medicine; Visit Provider Family Medicine
DX: M67.40 Ganglion, unspecified site (principal)
CPT/HCPCS: 73130

== ENCOUNTER 2024-05-28 10:41 | Outpatient (OUT) | payer MEDICARE, OTHER, SELFPAY ==
--- NOTE | 2024-05-28 | XR_ITS ---
[address] [address] Patient Name: SILVINO MARVIN MRN: [id number] date: 1950 Sex: M Assigned Patient Location: Current Patient Location: Accession/Order Number: [id number] Exam Date: 05/28/2024 10:42 Report Date: 05/28/2024 16:10 At the request of: JASE ROJO Procedure: XR hand RT min 3V PROCEDURE: XR hand RT min 3V COMPARISON: 05/03/2024 HISTORY: RIGHT HAND PAIN FINDINGS: BONES:No fracture, acute abnormality, or significant arthropathy. SOFT TISSUES:Negative. No visible soft tissue swelling. EFFUSION:None visible. OTHER: Negative. XR/XR hand RT min 3V IMPRESSION: No acute radiographic abnormality Electronically authenticated by: PHIL PEOPLES Date: 05/28/2024 16:10
--- OUTSIDE RECORDS SUMMARY | 2024-05-28 10:59 | XMS_ITS | CCD ---
Author Organization [facility] Care Team Providers Care Pile Trimmer Name Role Phone CHEIKH ., DR NARANJO [...] 04-06-2024 Episodic Other aftercare (1 source) Other group home (current) drug therapy; Translations: [OTH RETIREMENT CURRENT DRUG THERAPY] Onset: 02-16-2023 Episodic Other [...] [id number] Received: 04/30/24 Status: CASS Req Num: [id number] Spec Type: Impression Subm Dr: Marcella Gross MD Tissues: PATHPER Procedures: PATHREVIEW Age/ Patient Sex Location Account Attending Physician RustySilvino Joel 74/M [place] [id number] Marcella Gross MD SPEC NUM: [id number] RECD: 04/30/24 STATUS: CASS REQ NUM: [id number] KAREN: 04/27/[address]: Marcella Gross MD ENTERED: 04/30/[address] [facility] [address]: SPEC TYPE: Impression DEPT: ALEXSANDRA Cervantes ENTERED BY: [id number] RECV BY: [id number] ORDERED: PATHREVIEW ORDERED: PATHREVIEW Pathologist Review Abnormal [...] shifted granulocytes, or granulocytic dysplasia observed CPT: 50952 -------- -------- Specimen: [id number] Received: 04/30/24 Status: CASS Moore Num: [id number] Spec Type: Impression Subm Dr: Marcella Gross MD Tissues: PATHPER Procedures: PATHREVIEW -------- Patient: Silvino Ojeda Joel [id number] (Continued) -------- Signed (signature on file) ChinAlexys Irving MD 04/30/241945 Normal [facility] CULTURE OTHERon 02-11-2023 [...] F Trimethoprim/Sulfamet hoxazole <=10 S F Normal [facility] Comment on above: Performed By: #### L IPID, T4, TSH, FT3, CMP #### [facility] [address] [address] [address] Maggy Irving FUNGAL CULTUREon 02-09-2023 Fungus Stain Final report Normal [facility] Comment on above: Performed By: #### L IPID, T4, TSH, FT3, CMP #### [facility] [address] [address] [address] Maggy Irving Result 1 Comment Normal [facility] Comment on above: Result Comment: SUDHIR/ Calcofluor preparation: no fungus observed. Performed By: #### L IPID, T4, TSH, FT3, CMP #### [facility] [address] [address] [address] Maggy Irving ACID FAST SMEAR AND CXon Acid Fast Smear Negative Normal [facility] Comment on above: Performed By: #### A FB #### [facility] [address] [place] [address] Dr. Maggy Irving [employer] Specimen Processing Tissue Grinding [facility] Comment on above: Performed By: #### A FB #### [facility] [address] [place] [address] Dr. Maggy Irving CULTURE ANAEROBICon 02-08-20 CULTURE ANAEROBIC Isolate 1 Finegoldia magna Light growth of Normal [facility] Comment on above: Result Comment: EVID ENCE BASED PRACTICE [facility] HAS DEMONSTRATED THAT FINEGOLDIA SPECIES ARE ROUTINELY SUSCEPTIBLE TO PIPERACILLIN-TAZOBACTAM, CEFOXITIN, ERTAPENEM, IMIPENEM METRONIDAZOLE AND VARIABLY RESISTANT TO CLINDAMYCIN. Performed By: #### L IPID, T4, TSH, FT3, CMP #### [facility] [address] [place] [address] Dr. Maggy Irving GRAM STAINon 02-07-2023 COMMENTS NO ORGANISMS OBSERVED [facility] Comment on above: Performed By: #### G STAIN #### [facility] [address] [place] [address] Dr. Maggy Irving DIPHTHEROIDS Normal [facility] Comment on above: Performed By: #### G STAIN #### [facility] [address] [place] [address] Dr. Maggy Irving EPITHELIALS Normal [facility] Comment on above: Performed By: #### G STAIN #### [facility] [address] [address] [address] Maggy Irving FUNGAL ELEMENTS Normal [facility] Comment on above: Performed By: #### G STAIN #### [facility] [address] [address] [address] Maggy Irving GRAM NEG BACILLI Normal [place] Comment on above: Performed By: #### G STAIN #### [facility] [address] [address] [address] Maggy MENODZA NEG DIPPLOCOCCI Normal [facility] Comment on above: Performed By: #### G STAIN #### [facility] [address] [place] [address] Dr. Maggy Irving GRAM POS BACILLI [facility] Comment on above: Performed By: #### G STAIN #### [facility] [address] [place] [address] Dr. Maggy Irving GRAM POSITIVE COCCI Normal [facility] Comment on above: Performed By: #### G STAIN #### [facility] [address] [address] [address] Maggy Irving GRAM STAIN SOURCE 5th Metatarsal Bone [facility] Comment on above: Performed By: #### G STAIN #### [facility] [address] [place] [address] Dr. Maggy Irving GS_DIPTH [facility] Comment on above: Performed By: #### G STAIN #### [facility] [address] [place] [address] Dr. Maggy Irving WBC RARE Normal [facility] Comment on above: Performed By: #### G STAIN #### [facility] [address] [place] [address] Dr. Maggy Irving POINT OF CARE GLUCOSEon 01-18 Glucose [Mass/Vol] 114 mg/dL Critically high 74-106 T [facility] Comment on above: Performed By: #### P OCGLUC #### [facility] [address] [place] [address] Dr. Maggy Irving Glucose [Mass/Vol] 122 mg/dL Critically high 74-106 T [facility] Comment on above: Performed By: #### P OCGLUC #### [facility] [address] [place] [address] Dr. aMggy Irving PROF CHEM 8 (BAS METB)on Anion gap [Moles/Vol] 12.0 mmol/L Normal [facility] Comment on above: Performed By: #### L IPID, T4, TSH, FT3, CMP #### [facility] [address] [address] [address] Maggy Irving Calcium [Mass/Vol] 8.7 mg/dL Normal 8.5-10.1 [facility] Comment on above: Performed By: #### L IPID, T4, TSH, FT3, CMP #### [facility] [address] [place] [address] Dr. Maggy Irving Chloride [Moles/Vol] 104 mmol/L Normal 98-107 [facility] Comment on above: Performed By: #### L IPID, T4, TSH, FT3, CMP #### [facility] [address] [address] [address] Maggy Irving CO2 [Moles/Vol] 28.1 mmol/L Normal 21.0-32.0 [place] Comment on above: Performed By: #### L IPID, T4, TSH, FT3, CMP #### [facility] [address] [place] [address] Dr. Maggy Irving Creatinine [Mass/Vol] 0.80 mg/dL Normal 0.70-1.30 [facility] Comment on above: Performed By: #### L IPID, T4, TSH, FT3, CMP #### [facility] [address] [place] [address] Dr. Maggy Irving EGFR-AF MALAYSIAN >60 Normal >=60 [place] Comment on above: Performed By: #### L IPID, T4, TSH, FT3, CMP #### [facility] [address] [place] [address] Dr. Maggy Irving EGFR-NON AF MALAYSIAN >60 Normal >=60 [facility] Comment on above: Performed By: #### L IPID, T4, TSH, FT3, CMP #### [facility] [address] [place] [address] Dr. Maggy Irving Glucose [Mass/Vol] 129 mg/dL Critically high 74-106 T [facility] Comment on above: Performed By: #### L IPID, T4, TSH, FT3, CMP #### [facility] [address] [place] [address] Dr. Maggy Irving Potassium [Moles/Vol] 4.1 mmol/L Normal 3.5-5.1 [facility] Comment on above: Performed By: #### L IPID, T4, TSH, FT3, CMP #### [facility] [address] [place] [address] Dr. Maggy Irving Sodium [Moles/Vol] 140 mmol/L Normal 136-145 [facility] Comment on above: Performed By: #### L IPID, T4, TSH, FT3, CMP #### [facility] [address] [place] [address] Dr. Maggy Irving Urea nitrogen [Mass/Vol] 20.0 mg/dL Critically high 7.0-18.0 [facility] Comment on above: Performed By: #### L IPID, T4, TSH, FT3, CMP #### [facility] [address] [place] [address] Dr. Maggy Irving Urea nitrogen/Creatinine [Mass ratio] 25.0 mg/mg Normal [facility] Comment on above: Performed By: #### L IPID, T4, TSH, FT3, CMP #### [facility] [address] [place] [address] Dr. Maggy Irving FREE T3on 01-07-2023 FREE T3 3.24 pg/mlL Normal 2.18-3.98 [facility] Comment on above: Performed By: #### L IPID, T4, TSH, FT3, CMP #### [facility] [address] [place] [address] Dr. Maggy Irving T4on 01-07-2023 T4 [Mass/Vol] 9.10 ug/dL Normal 4.50-12.10 [facility] Comment on above: Performed By: #### L IPID, T4, TSH, FT3, CMP #### [facility] [address] [place], [place] [address] Dr. Maggy Irving TSHon 01-07-2023 TSH 5.957 uIU/mL Critically high 0.358-3.740 [facility] Comment on above: Performed By: #### L IPID, T4, TSH, FT3, CMP #### [facility] [address] [place], [place] [address] Dr. Maggy Irving NM STRESS/REST MULTIon 01-03 NM STRESS/REST MULTI Patient: SILVINO OJEDA Exam Date: 01/03/2023 : 1950 Gender:M Ordering : DR MARCELLA GROSS . Admission #: [id number] Family : Order #: [id number] CLICK HERE TO VIEW EXAM RADIOLOGY REPORT [...] Khanna M.D. on 01/04/2023 at 07:45 Normal [facility] ECHOCARDIO M/2D COMPLETEon 0 12-21-2022 ECHOCARDIO M/2D COMPLETE Patient: SILVINO OJEDA Exam Date: 12/21/2022 : 1950 Gender:M Ordering : DR MARCELLA GROSS . Admission #: [id number] Family : Order #: [id number] CLICK HERE TO VIEW EXAM ECHOCARDIOGRAM REPORT [...] Normal [facility] BNPon 12-07-2022 Natriuretic peptide B (Bld) [Mass/Vol] 37.0 pg/mL Normal <=900.0 [facility] Comment on above: Performed By: #### L IPID, T4, TSH, FT3, CMP #### [facility] [address] [place] [address] Dr. Maggy Irving CBC AUTO DIFFon 12-07-2022 BASO # 0.0 103/ul Normal 0.0-0.1 [facility] Comment on above: Performed By: #### L IPID, T4, TSH, FT3, CMP #### [facility] [address] [place] [address] Dr. Maggy Irving Basophils/100 WBC (Bld) 0.2 % Normal 0.2-2.0 [facility] Comment on above: Performed By: #### L IPID, T4, TSH, FT3, CMP #### [facility] [address] [place] [address] Dr. Maggy Irving EO # 0.2 103/ul Normal 0.0-0.7 [facility] Comment on above: Performed By: #### L IPID, T4, TSH, FT3, CMP #### [facility] [address] [place] [address] Dr. Maggy Irving Eosinophils/100 WBC (Bld) 3.7 % Normal 0.9-7.0 [facility] Comment on above: Performed By: #### L IPID, T4, TSH, FT3, CMP #### [facility] [address] [place] [address] Dr. Maggy Irving Erythrocyte distribution width (RBC) [Ratio] 11.9 % Normal 11.0-15.0 [facility] Comment on above: Performed By: #### L IPID, T4, TSH, FT3, CMP #### [facility] [address] [place] [address] Dr. Maggy Irving Hematocrit (Bld) [Volume fraction] 39.7 % Critically low 42.0-54.0 [facility] Comment on above: Performed By: #### L IPID, T4, TSH, FT3, CMP #### [facility] [address] [place] [address] Dr. Maggy Irving Hemoglobin (Bld) [Mass/Vol] 14.0 g/dL Normal 14.0-18.0 [facility] Comment on above: Performed By: #### L IPID, T4, TSH, FT3, CMP #### [facility] [address] [place] [address] Dr. Maggy Irving IG # 0.02 10e3/ul Normal 0.00-0.03 [facility] Comment on above: Performed By: #### L IPID, T4, TSH, FT3, CMP #### [facility] [address] [place] [address] Dr. Maggy Irving IG % 0.5 % Normal 0.0-0.5 [facility] Comment on above: Performed By: #### L IPID, T4, TSH, FT3, CMP #### [facility] [address] [place] [address] Dr. Maggy Irving LYMPH # 0.9 103/ul Critically low 1.2-3.8 [facility] Comment on above: Performed By: #### L IPID, T4, TSH, FT3, CMP #### [facility] [address] [place] [address] Dr. Maggy Irving Lymphocytes/100 WBC (Bld) 21.1 % Normal 20.5-60.0 [facility] Comment on above: Performed By: #### L IPID, T4, TSH, FT3, CMP #### [facility] [address] [place] [address] Dr. Maggy Irving MANUAL DIFF REQ NO Normal [facility] Comment on above: Performed By: #### L IPID, T4, TSH, FT3, CMP #### [facility] [address] [place] [address] Dr. Maggy Irving MCH (RBC) [Entitic mass] 30.5 pg Normal 25.9-34.0 [facility] Comment on above: Performed By: #### L IPID, T4, TSH, FT3, CMP #### [facility] [address] [place] [address] Dr. Maggy Irving MCHC (RBC) [Mass/Vol] 35.3 g/dL Critically high 29.9-35.2 [facility] Comment on above: Performed By: #### L IPID, T4, TSH, FT3, CMP #### [facility] [address] [place] [address] Dr. Maggy Irving MCV (RBC) [Entitic vol] 86.5 fL Normal 80.0-94.0 [facility] Comment on above: Performed By: #### L IPID, T4, TSH, FT3, CMP #### [facility] [address] [place] [address] Dr. Maggy Irving MONO # 0.4 103/ul Normal 0.3-0.8 [facility] Comment on above: Performed By: #### L IPID, T4, TSH, FT3, CMP #### [facility] [address] [place] [address] Dr. Maggy Irving Monocytes/100 WBC (Bld) 8.7 % Normal 1.7-12.0 [facility] Comment on above: Performed By: #### L IPID, T4, TSH, FT3, CMP #### [facility] [address] [place] [address] Dr. Maggy Irving NEUT # 2.9 103/ul Normal 1.4-6.5 [facility] Comment on above: Performed By: #### L IPID, T4, TSH, FT3, CMP #### [facility] [address] [place] [address] Dr. Maggy Irving Neutrophils/100 WBC (Bld) 65.8 % Normal 43.0-75.0 [facility] Comment on above: Performed By: #### L IPID, T4, TSH, FT3, CMP #### [facility] [address] [place] [address] Dr. Maggy Irving Platelet mean volume (Bld) [Entitic vol] 9.9 fL Normal 9.5-13.5 [facility] Comment on above: Performed By: #### L IPID, T4, TSH, FT3, CMP #### [facility] [address] [address] [address] Maggy Irving PLT 128 103/ul Critically low 150-450 [facility] Comment on above: Performed By: #### L IPID, T4, TSH, FT3, CMP #### [facility] [address] [address] [address] Maggy Irving RBC 4.59 106/ul Critically low 4.70-6.10 [facility] Comment on above: Performed By: #### L IPID, T4, TSH, FT3, CMP #### [facility] [address] [address] [address] Maggy Irving WBC 4.4 103/ul Normal 4.0-11.0 [facility] Comment on above: Performed By: #### L IPID, T4, TSH, FT3, CMP #### [facility] [address] [place] [address] Dr. Maggy Irving FREE THYROXINE INDEX T7on FTI 2.72 Normal 1.30-4.50 [facility] Comment on above: Performed By: #### L IPID, T4, TSH, FT3, CMP #### [facility] [address] [place] [address] Dr. Maggy Irving T3U 34.0 % Normal 33.0-40.0 [facility] Comment on above: Performed By: #### L IPID, T4, TSH, FT3, CMP #### [facility] [address] [place] [address] Dr. Maggy Irving T4 [Mass/Vol] 8.00 ug/dL Normal 4.50-12.10 [facility] Comment on above: Performed By: #### L IPID, T4, TSH, FT3, CMP #### [facility] [address] [place] [address] Dr. Maggy Irving IRONon 12-07-2022 Iron [Mass/Vol] 134.0 ug/dL Normal 65.0-175.0 [facility] Comment on above: Performed By: #### L IPID, T4, TSH, FT3, CMP #### [facility] [address] [place] [address] Dr. Maggy Irving LIPID PROFILEon 12-07-2022 CHOL-HDL RATIO NORM SEE BELOW Normal [facility] Comment on above: Result Comment: 3.3 - 4.4 LOW RISK 4.4 - 7.1 AVERAGE RISK 7.1 - 11.0 MODERATE RISK >11.0 HIGH RISK Performed By: #### L IPID, T4, TSH, FT3, CMP #### [facility] [address] [place] [address] Dr. Maggy Irving Cholesterol [Mass/Vol] 180 mg/dL Normal <=200 [facility] Comment on above: Performed By: #### L IPID, T4, TSH, FT3, CMP #### [facility] [address] [place] [address] Dr. Maggy Irving Cholesterol in HDL [Mass/Vol] 37 mg/dL Critically low 40-60 [facility] Comment on above: Performed By: #### L IPID, T4, TSH, FT3, CMP #### [facility] [address] [place] [address] Dr. Maggy Irving Cholesterol in LDL [Mass/Vol] 95.2 mg/dL Normal [facility] Comment on above: Performed By: #### L IPID, T4, TSH, FT3, CMP #### [facility] [address] [place] [address] Dr. Maggy Irving Cholesterol.total/Ch olesterol in HDL [Mass ratio] 4.9 {ratio} Normal [facility] Comment on above: Performed By: #### L IPID, T4, TSH, FT3, CMP #### [facility] [address] [place] [address] Dr. Maggy Irving HDL NORMAL > or = 60 mg/dl - LO W CARDIOVASCULAR RISK <40 mg/dl - HIGH CARDIOVASCULAR RISK Normal [facility] Comment on above: Performed By: #### L IPID, T4, TSH, FT3, CMP #### [facility] [address] [place] [address] Dr. Maggy Irving LDL CALC NORMAL SEE BELOW Normal [facility] Comment on above: Result Comment: <100 mg/dl OPTIMAL 100 - 129 mg/dl NEAR OR ABOVE OPTIMAL 130 - 159 mg/dl BORDERLINE HIGH 160 - 189 mg/dl HIGH >190 mg/dl VERY HIGH Performed By: #### L IPID, T4, TSH, FT3, CMP #### [facility] [address] [address] [address] Maggy Irving Triglyceride [Mass/Vol] 239 mg/dL Critically high <=150 [facility] Comment on above: Performed By: #### L IPID, T4, TSH, FT3, CMP #### [facility] [address] [place] [address] Dr. Maggy Irving VLDL CALC 47.8 mg/dL Normal [facility] Comment on above: Performed By: #### L IPID, T4, TSH, FT3, CMP #### [facility] [address] [place] [address] Dr. Maggy Irving PROF 14(COMP METB)on 023 Albumin [Mass/Vol] 3.8 g/dL Normal 3.4-5.0 [facility] Comment on above: Performed By: #### L IPID, T4, TSH, FT3, CMP #### [facility] [address] [place] [address] Dr. Maggy Irving Albumin/Globulin [Mass ratio] 1.1 {ratio} Normal [facility] Comment on above: Performed By: #### L IPID, T4, TSH, FT3, CMP #### [facility] [address] [place] [address] Dr. Maggy Irving ALP [Catalytic activity/Vol] 53 U/L Normal 46-116 [facility] Comment on above: Performed By: #### L IPID, T4, TSH, FT3, CMP #### [facility] [address] [place] [address] Dr. Maggy Irving ALT [Catalytic activity/Vol] 43 U/L Normal 16-63 [facility] Comment on above: Performed By: #### L IPID, T4, TSH, FT3, CMP #### [facility] [address] [place] [address] Dr. Maggy Irving Anion gap [Moles/Vol] 12.2 mmol/L Normal [facility] Comment on above: Performed By: #### L IPID, T4, TSH, FT3, CMP #### [facility] [address] [place] [address] Dr. Maggy Irving AST [Catalytic activity/Vol] 22 U/L Normal 15-37 [facility] Comment on above: Performed By: #### L IPID, T4, TSH, FT3, CMP #### [facility] [address] [place] [address] Dr. Maggy Irving Bilirubin [Mass/Vol] 0.6 mg/dL Normal 0.2-1.0 [facility] Comment on above: Performed By: #### L IPID, T4, TSH, FT3, CMP #### [facility] [address] [place] [address] Dr. Maggy Irving Calcium [Mass/Vol] 8.9 mg/dL Normal 8.5-10.1 [facility] Comment on above: Performed By: #### L IPID, T4, TSH, FT3, CMP #### [facility] [address] [place] [address] Dr. Maggy Irving Chloride [Moles/Vol] 104 mmol/L Normal 98-107 [facility] Comment on above: Performed By: #### L IPID, T4, TSH, FT3, CMP #### [facility] [address] [place] [address] Dr. Maggy Irving CO2 [Moles/Vol] 28.8 mmol/L Normal 21.0-32.0 [facility] Comment on above: Performed By: #### L IPID, T4, TSH, FT3, CMP #### [facility] [address] [place] [address] Dr. Maggy Irving Creatinine [Mass/Vol] 0.83 mg/dL Normal 0.70-1.30 [facility] Comment on above: Performed By: #### L IPID, T4, TSH, FT3, CMP #### [facility] [address] [address] [address] Maggy Irving EGFR-AF MALAYSIAN >60 Normal >=60 [place] Comment on above: Performed By: #### L IPID, T4, TSH, FT3, CMP #### [facility] [address] [place] [address] Dr. Maggy Irving EGFR-NON AF MALAYSIAN >60 Normal >=60 [facility] Comment on above: Performed By: #### L IPID, T4, TSH, FT3, CMP #### [facility] [address] [place] [address] Dr. Maggy Irving Globulin (S) [Mass/Vol] 3.4 g/dL Normal [facility] Comment on above: Performed By: #### L IPID, T4, TSH, FT3, CMP #### [facility] [address] [place] [address] Dr. Maggy Irving Glucose [Mass/Vol] 116 mg/dL Critically high 74-106 [facility] Comment on above: Performed By: #### L IPID, T4, TSH, FT3, CMP #### [facility] [address] [place] [address] Dr. Maggy Irving Potassium [Moles/Vol] 4.0 mmol/L Normal 3.5-5.1 [facility] Comment on above: Performed By: #### L IPID, T4, TSH, FT3, CMP #### [facility] [address] [address] [address] Maggy Irving Protein [Mass/Vol] 7.2 g/dL Normal 6.4-8.2 [facility] Comment on above: Performed By: #### L IPID, T4, TSH, FT3, CMP #### [facility] [address] [place] [address] Dr. Maggy Irving Sodium [Moles/Vol] 141 mmol/L Normal 136-145 [facility] Comment on above: Performed By: #### L IPID, T4, TSH, FT3, CMP #### [facility] [address] [place] [address] Dr. Maggy Irving Urea nitrogen [Mass/Vol] 17.0 mg/dL Normal 7.0-18.0 [facility] Comment on above: Performed By: #### L IPID, T4, TSH, FT3, CMP #### [facility] [address] [place] [address] Dr. Maggy Irving Urea nitrogen/Creatinine [Mass ratio] 20.5 mg/mg Normal [facility] Comment on above: Performed By: #### L IPID, T4, TSH, FT3, CMP #### [facility] [address] [place] [address] Dr. Maggy Irving TSHon 12-07-2022 TSH 5.531 uIU/mL Critically high 0.358-3.740 [facility] Comment on above: Performed By: #### L IPID, T4, TSH, FT3, CMP #### [facility] [address] [place] [address] Dr. Maggy Irving TESTOSTERONE, TOTALon 2021 Testosterone [Mass/Vol] 390 ng/dL Normal 264-916 [facility] Comment on above: Result Comment: Adul t male reference interval is based on a population of healthy nonobese males (BMI <30) between 19 and 39 years old. Reynaldo et.al. JCEM 2017,102;6798-1409. PMID: [id number]. Performed By: #### L IPID, T4, TSH, FT3, CMP #### [facility] [address] [place] [address] Dr. Maggy Irving CBC AUTO DIFFon 04-09-2022 BASO # 0.0 103/ul Normal 0.0-0.1 [facility] Comment on above: Performed By: #### L IPID, T4, TSH, FT3, CMP #### [facility] [address] [place] [address] Dr. Maggy Irving Basophils/100 WBC (Bld) 0.2 % Normal 0.2-2.0 [facility] Comment on above: Performed By: #### L IPID, T4, TSH, FT3, CMP #### [facility] [address] [place] [address] Dr. Maggy Irving EO # 0.2 103/ul Normal 0.0-0.7 [facility] Comment on above: Performed By: #### L IPID, T4, TSH, FT3, CMP #### [facility] [address] [place] [address] Dr. Maggy Irving Eosinophils/100 WBC (Bld) 3.1 % Normal 0.9-7.0 [facility] Comment on above: Performed By: #### L IPID, T4, TSH, FT3, CMP #### [facility] [address] [place] [address] Dr. Maggy Irving Erythrocyte distribution width (RBC) [Ratio] 12.3 % Normal 11.0-15.0 [facility] Comment on above: Performed By: #### L IPID, T4, TSH, FT3, CMP #### [facility] [address] [place] [address] Dr. Maggy Irving Hematocrit (Bld) [Volume fraction] 41.6 % Critically low 42.0-54.0 [facility] Comment on above: Performed By: #### L IPID, T4, TSH, FT3, CMP #### [facility] [address] [place] [address] Dr. Maggy Irving Hemoglobin (Bld) [Mass/Vol] 14.6 g/dL Normal 14.0-18.0 [facility] Comment on above: Performed By: #### L IPID, T4, TSH, FT3, CMP #### [facility] [address] [place] [address] Dr. Maggy Irving IG # 0.02 10e3/ul Normal 0.00-0.03 [facility] Comment on above: Performed By: #### L IPID, T4, TSH, FT3, CMP #### [facility] [address] [place] [address] Dr. Maggy Irving IG % 0.4 % Normal 0.0-0.5 [facility] Comment on above: Performed By: #### L IPID, T4, TSH, FT3, CMP #### [facility] [address] [place] [address] Dr. Maggy Irving LYMPH # 0.9 103/ul Critically low 1.2-3.8 [facility] Comment on above: Performed By: #### L IPID, T4, TSH, FT3, CMP #### [facility] [address] [place] [address] Dr. Maggy Irving Lymphocytes/100 WBC (Bld) 17.9 % Critically low 20.5-60.0 [facility] Comment on above: Performed By: #### L IPID, T4, TSH, FT3, CMP #### [facility] [address] [place] [address] Dr. Maggy Irving MANUAL DIFF REQ NO Normal [facility] Comment on above: Performed By: #### L IPID, T4, TSH, FT3, CMP #### [facility] [address] [place] [address] Dr. Maggy Irving MCH (RBC) [Entitic mass] 31.1 pg Normal 25.9-34.0 [facility] Comment on above: Performed By: #### L IPID, T4, TSH, FT3, CMP #### [facility] [address] [place] [address] Dr. Maggy Irving MCHC (RBC) [Mass/Vol] 35.1 g/dL Normal 29.9-35.2 [facility] Comment on above: Performed By: #### L IPID, T4, TSH, FT3, CMP #### [facility] [address] [place] [address] Dr. Maggy Irving MCV (RBC) [Entitic vol] 88.5 fL Normal 80.0-94.0 [facility] Comment on above: Performed By: #### L IPID, T4, TSH, FT3, CMP #### [facility] [address] [place] [address] Dr. Maggy Irving MONO # 0.4 103/ul Normal 0.3-0.8 [facility] Comment on above: Performed By: #### L IPID, T4, TSH, FT3, CMP #### [facility] [address] [place] [address] Dr. Maggy Irving Monocytes/100 WBC (Bld) 8.7 % Normal 1.7-12.0 [facility] Comment on above: Performed By: #### L IPID, T4, TSH, FT3, CMP #### [facility] [address] [place] [address] Dr. Maggy Irving NEUT # 3.4 103/ul Normal 1.4-6.5 [facility] Comment on above: Performed By: #### L IPID, T4, TSH, FT3, CMP #### [facility] [address] [place] [address] Dr. Maggy Irving Neutrophils/100 WBC (Bld) 69.7 % Normal 43.0-75.0 [facility] Comment on above: Performed By: #### L IPID, T4, TSH, FT3, CMP #### [facility] [address] [place] [address] Dr. Maggy Irving Platelet mean volume (Bld) [Entitic vol] 9.9 fL Normal 9.5-13.5 [facility] Comment on above: Performed By: #### L IPID, T4, TSH, FT3, CMP #### [facility] [address] [place] [address] Dr. Maggy Irving PLT 121 103/ul Critically low 150-450 [facility] Comment on above: Performed By: #### L IPID, T4, TSH, FT3, CMP #### [facility] [address] [place] [address] Dr. Maggy Irving RBC 4.70 106/ul Normal 4.70-6.10 [facility] Comment on above: Performed By: #### L IPID, T4, TSH, FT3, CMP #### [facility] [address] [place] [address] Dr. Maggy Irving WBC 4.8 103/ul Normal 4.0-11.0 [facility] Comment on above: Performed By: #### L IPID, T4, TSH, FT3, CMP #### [facility] [address] [address] [address] Maggy Irving FREE T3on 04-09-2022 FREE T3 3.15 pg/mlL Normal 2.18-3.98 [facility] Comment on above: Performed By: #### L IPID, T4, TSH, FT3, CMP #### [facility] [address] [address] [address] Maggy Irving GLYCOHEMOGLOBIN A1Con 2021 ADA RECOMMENDATION SEE BELOW Normal [facility] Comment on above: Result Comment: ADA RECOMMENDED LIMIT 4.0 - 6.0 ADA THERAPEUTIC TARGET < 7.0 ACTION SUGGESTED > 7.0 Performed By: #### L IPID, T4, TSH, FT3, CMP #### [facility] [address] [place] [address] Dr. Maggy Irving Glucose [Mass/Vol] 123 mg/dL Normal [facility] Comment on above: Performed By: #### L IPID, T4, TSH, FT3, CMP #### [facility] [address] [place] [address] Dr. Maggy Irving HbA1c (Bld) [Mass fraction] 5.9 % Normal 4.5-6.2 [facility] Comment on above: Performed By: #### L IPID, T4, TSH, FT3, CMP #### [facility] [address] [place] [address] Dr. Maggy Irving LIPID PROFILEon 04-09-2022 CHOL-HDL RATIO NORM SEE BELOW Normal [facility] Comment on above: Result Comment: 3.3 - 4.4 LOW RISK 4.4 - 7.1 AVERAGE RISK 7.1 - 11.0 MODERATE RISK >11.0 HIGH RISK Performed By: #### L IPID, T4, TSH, FT3, CMP #### [facility] [address] [place] [address] Dr. Maggy Irving Cholesterol [Mass/Vol] 174 mg/dL Normal <=200 [facility] Comment on above: Performed By: #### L IPID, T4, TSH, FT3, CMP #### [facility] [address] [address] [address] Maggy Irving Cholesterol in HDL [Mass/Vol] 36 mg/dL Critically low 40-60 [facility] Comment on above: Performed By: #### L IPID, T4, TSH, FT3, CMP #### [facility] [address] [address] [address] Maggy Irving Cholesterol in LDL [Mass/Vol] 114.4 mg/dL Normal [facility] Comment on above: Performed By: #### L IPID, T4, TSH, FT3, CMP #### [facility] [address] [address] [address] Maggy Irving Cholesterol.total/Ch olesterol in HDL [Mass ratio] 4.8 {ratio} Normal [facility] Comment on above: Performed By: #### L IPID, T4, TSH, FT3, CMP #### [facility] [address] [place] [address] Dr. Maggy Irving HDL NORMAL > or = 60 mg/dl - LO W CARDIOVASCULAR RISK <40 mg/dl - HIGH CARDIOVASCULAR RISK Normal [facility] Comment on above: Performed By: #### L IPID, T4, TSH, FT3, CMP #### [facility] [address] [address] [address] Maggy Irving LDL CALC NORMAL SEE BELOW Normal [facility] Comment on above: Result Comment: <100 mg/dl OPTIMAL 100 - 129 mg/dl NEAR OR ABOVE OPTIMAL 130 - 159 mg/dl BORDERLINE HIGH 160 - 189 mg/dl HIGH >190 mg/dl VERY HIGH Performed By: #### L IPID, T4, TSH, FT3, CMP #### [facility] [address] [address] [address] Maggy Irving Triglyceride [Mass/Vol] 118 mg/dL Normal <=150 [facility] Comment on above: Performed By: #### L IPID, T4, TSH, FT3, CMP #### [facility] [address] [address] [address] Maggy Irving VLDL CALC 23.6 mg/dL Normal [facility] Comment on above: Performed By: #### L IPID, T4, TSH, FT3, CMP #### [facility] [address] [place] [address] Dr. Maggy Irving OCC BLD IMMUNO SCREENon 03-20 OCCULT BLOOD Negative Normal NEGATIVE [facility] Comment on above: Performed By: #### O BSCRN #### [facility] [address] [place] [address] Dr. Maggy Irving PROF 14(COMP METB)on 022 Albumin [Mass/Vol] 3.6 g/dL Normal 3.4-5.0 [facility] Comment on above: Performed By: #### L IPID, T4, TSH, FT3, CMP #### [facility] [address] [place] [address] Dr. Maggy Irving Albumin/Globulin [Mass ratio] 1.1 {ratio} Normal [facility] Comment on above: Performed By: #### L IPID, T4, TSH, FT3, CMP #### [facility] [address] [place] [address] Dr. Maggy Irving ALP [Catalytic activity/Vol] 47 U/L Normal 46-116 [facility] Comment on above: Performed By: #### L IPID, T4, TSH, FT3, CMP #### [facility] [address] [place] [address] Dr. Maggy Irving ALT [Catalytic activity/Vol] 31 U/L Normal 16-63 [facility] Comment on above: Performed By: #### L IPID, T4, TSH, FT3, CMP #### [facility] [address] [place] [address] Dr. Maggy Irving Anion gap [Moles/Vol] 10.2 mmol/L Normal [facility] Comment on above: Performed By: #### L IPID, T4, TSH, FT3, CMP #### [facility] [address] [place] [address] Dr. Maggy Irving AST [Catalytic activity/Vol] 17 U/L Normal 15-37 [facility] Comment on above: Performed By: #### L IPID, T4, TSH, FT3, CMP #### [facility] [address] [place] [address] Dr. Maggy Irving Bilirubin [Mass/Vol] 0.6 mg/dL Normal 0.2-1.0 [facility] Comment on above: Performed By: #### L IPID, T4, TSH, FT3, CMP #### [facility] [address] [place] [address] Dr. Maggy Irving Calcium [Mass/Vol] 8.1 mg/dL Critically low 8.5-10.1 [facility] Comment on above: Performed By: #### L IPID, T4, TSH, FT3, CMP #### [facility] [address] [place] [address] Dr. Maggy Irving Chloride [Moles/Vol] 105 mmol/L Normal 98-107 [facility] Comment on above: Performed By: #### L IPID, T4, TSH, FT3, CMP #### [facility] [address] [place] [address] Dr. Maggy Irving CO2 [Moles/Vol] 29.6 mmol/L Normal 21.0-32.0 [place] Comment on above: Performed By: #### L IPID, T4, TSH, FT3, CMP #### [facility] [address] [place] [address] Dr. Maggy Irving Creatinine [Mass/Vol] 0.89 mg/dL Normal 0.70-1.30 [facility] Comment on above: Performed By: #### L IPID, T4, TSH, FT3, CMP #### [facility] [address] [place] [address] Dr. Maggy Irving EGFR-AF MALAYSIAN >60 Normal >=60 [facility] Comment on above: Performed By: #### L IPID, T4, TSH, FT3, CMP #### [facility] [address] [place] [address] Dr. Maggy Irving EGFR-NON AF MALAYSIAN >60 Normal >=60 [facility] Comment on above: Performed By: #### L IPID, T4, TSH, FT3, CMP #### [facility] [address] [address] [address] Maggy Irving Globulin (S) [Mass/Vol] 3.2 g/dL Normal [facility] Comment on above: Performed By: #### L IPID, T4, TSH, FT3, CMP #### [facility] [address] [place] [address] Dr. Maggy Irving Glucose [Mass/Vol] 110 mg/dL Critically high 74-106 T [facility] Comment on above: Performed By: #### L IPID, T4, TSH, FT3, CMP #### [facility] [address] [place] [address] Dr. Maggy Irving Potassium [Moles/Vol] 3.8 mmol/L Normal 3.5-5.1 [facility] Comment on above: Performed By: #### L IPID, T4, TSH, FT3, CMP #### [facility] [address] [place] [address] Dr. Maggy Irving Protein [Mass/Vol] 6.8 g/dL Normal 6.4-8.2 [facility] Comment on above: Performed By: #### L IPID, T4, TSH, FT3, CMP #### [facility] [address] [place] [address] Dr. Maggy Irving Sodium [Moles/Vol] 141 mmol/L Normal 136-145 [facility] Comment on above: Performed By: #### L IPID, T4, TSH, FT3, CMP #### [facility] [address] [place] [address] Dr. Maggy Irving Urea nitrogen [Mass/Vol] 17.0 mg/dL Normal 7.0-18.0 [facility] Comment on above: Performed By: #### L IPID, T4, TSH, FT3, CMP #### [facility] [address] [place] [address] Dr. Maggy Irving Urea nitrogen/Creatinine [Mass ratio] 19.1 mg/mg Normal [facility] Comment on above: Performed By: #### L IPID, T4, TSH, FT3, CMP #### [facility] [address] [place], [place] [address] Dr. Maggy Irving T4on 04-09-2022 T4 [Mass/Vol] 7.90 ug/dL Normal 4.50-12.10 [facility] Comment on above: Performed By: #### L IPID, T4, TSH, FT3, CMP #### [facility] [address] [address] [address] Maggy Irving TSHon 04-09-2022 TSH 4.949 uIU/mL Critically high 0.358-3.740 [facility] Comment on above: Performed By: #### L IPID, T4, TSH, FT3, CMP #### [facility] [address] [address] [address] Maggy Irving Vital Signs Date Time Vital Sign Value Performing Clinician Faci lity 04-06-2024 09:43-0400 Body height 177.8 cm [facility] 04-06-2024 09:43-0400 Body mass index (BMI) [Ratio] 34.4 kg/m2 [facility] 04-06-2024 09:43-0400 Body temperature 98.3 [degF] [facility] 04-06-2024 09:43-0400 Body weight 109.08 kg [facility] 04-06-2024 09:43-0400 Diastolic blood pressure 78 mm[Hg] [facility] 04-06-2024 09:43-0400 Heart rate 87 /min [facility] 04-06-2024 09:43-0400 Respiratory rate 18 /min [facility] 04-06-2024 09:43-0400 SaO2% (BldA) [Mass fraction] 96 % [facility] 04-06-2024 09:43-0400 Systolic blood pressure 146 mm[Hg] [facility] Encounters Encounter Date Encounter Type Care Provider Facility Start: 04-27-2024 End: 04-27-2024 ambulatory Marcella Gross [facility] Work Phone: Start: 04-27-2024 End: 04-27-2024 Departed Referred MD Marcella Gross Work Phone: [facility] Start: 04-06-2024 End: 04-06-2024 ambulatory [facility] Work Phone: Start: 04-06-2024 End: 04-06-2024 Patient encounter procedure [facility] Work Phone: Start: 02-10-2023 End: 02-11-2023 ambulatory IVELISSE ORNELAS Facility:[facility] Start: 02-07-2023 End: 02-07-2023 ambulatory IVELISSE ORNELAS Facility:[facility] Start: 02-06-2023 Encounter for preprocedural laboratory examination IVELISSE ORNELAS [facility] Start: 01-31-2023 End: 02-01-[address] [...] CMP #### [facility] [address] [place] [address] Dr. Maggy Irving Payers Date Payer Category Payer Self-pay 1957 Medicare [id number] 1957 Unknown [id number] 1950 Unknown [id number] 2.16.84 [id number] 1950 Unknown [id number] 2.16.84 [id number] 1952 Unknown [id number] 2.16.84 [id number] 1952 Unknown [id number] 2.16.84 [id number] 1952 Unknown [id number] 2.16.84 0.1.295620.3.579.2.593 1952 Unknown [id number] 2.16.84 [id number] 1952 Unknown [id number] 2.16.84 0.1.958300.3.579.2.593 1952 Unknown [id number] 2.16.84 0.1.355268.3.579.2.593 1952 Unknown [id number] 2.16.84 0.1.155320.3.579.2.593 1952 Unknown [id number] 2.16.84 0.1.081232.3.579.2.593 1952 Unknown [id number] 2.16.84 [id number] Medicare Medicare [id number] [id number] Unknown [id number] 2.16.8 [id number] Social History Date Type Detail Facility Tobacco smoking stat [facility] Unknown if ever smoked [facility] Work Phone: Start: 1950 Sex Assigned At Male F [facility] Clinical Note 02-07-2023 Note Date & Type [...] authenticated by: OLVIN KHANNA Date: 2023-02-07 09:41 [facility] Evaluation note Note Date & Type Note Facility Evaluation note Diagnosis Onset Date Bacterial conjunctivitis of right eye acute [facility] Work Phone: Summary Purpose Family History No [...] and content) DATE CREATED AUTHOR 02/25/2023 [facility] DATE CREATED AUTHOR AUTHOR'S ORGANIZ ATION 05/02/2024 [facility] Care Teams (unrecognized sec tion [...] BE BASED ON THE PRIMARY CLINICAL RECORDS. [facility]. provides no warranty or guarantee of the accuracy or completeness of information in this document.
== END 2024-05-28 10:42 | disposition home or self-care (01) ==
LOC: EC 10:42
PROVIDERS: PCP Family Medicine; Visit Provider Orthopaedic Surgery
DX: M79.641 Pain in right hand (principal)
CPT/HCPCS: 73130

== ENCOUNTER 2024-07-03 06:57 | Outpatient (OUT) | payer MEDICARE, OTHER, SELFPAY ==
--- OUTSIDE RECORDS SUMMARY | 2024-07-03 07:05 | XMS_ITS | CCD ---
Author Organization [facility] CliniSyoh Care Team Providers Care Dam Operator Name Role Phone CHEIKH ., DR NARANJO [...] 04-06-2024 Episodic Other aftercare (1 source) Other terminal manager (current) drug therapy; Translations: [OTH SKILLED NURSING CURRENT DRUG THERAPY] Onset: 02-16-2023 Episodic Other [...] [id number] Received: 04/30/24 Status: CASS Req Num: [id number] Spec Type: Impression Subm Dr: Marcella Gross MD Tissues: PATHPER Procedures: PATHREVIEW Age/ Patient Sex Location Account Attending Physician RustySilvino Joel 74/M [place] [id number] Marcella Gross MD SPEC NUM: [id number] RECD: 04/30/24 STATUS: CASS REQ NUM: [id number] KAREN: 04/27/[address]: Marcella Gross MD ENTERED: 04/30/24 [facility] DR: SPEC TYPE: Impression DEPT: ALEXSANDRA Cervantes ENTERED BY: [id number] RECV BY: [id number] ORDERED: PATHREVIEW ORDERED: PATHREVIEW Pathologist Review Abnormal [...] shifted granulocytes, or granulocytic dysplasia observed CPT: 67350 -------- -------- Specimen: [id number] Received: 04/30/24 Status: CASS Moore Num: [id number] Spec Type: Impression Subm Dr: Marcella Gross MD Tissues: PATHPER Procedures: PATHREVIEW -------- Patient: Silvino Ojeda Joel [id number] (Continued) -------- Signed (signature on file) ChinAlexys Irving MD 04/30/241945 Normal [facility] CULTURE OTHERon 02-11-2023 CULTURE [...] F Trimethoprim/Sulfamet hoxazole <=10 S F Normal [facility] Comment on above: Performed By: #### L IPID, T4, TSH, FT3, CMP #### [facility] [address] [address] [address] Maggy Irving FUNGAL CULTUREon 02-09-2023 Fungus Stain Final report Normal [facility] Comment on above: Performed By: #### L IPID, T4, TSH, FT3, CMP #### [facility] [address] [address] [address] Maggy Irving Result 1 Comment Normal [facility] Comment on above: Result Comment: SUDHIR/ Calcofluor preparation: no fungus observed. Performed By: #### L IPID, T4, TSH, FT3, CMP #### [facility] [address] [address] [address] Maggy Irving ACID FAST SMEAR AND CXon Acid Fast Smear Negative Normal [facility] Comment on above: Performed By: #### A FB #### [facility] [address] [place] [address] Dr. Maggy Irving [employer] Specimen Processing Tissue Grinding [facility] Comment on above: Performed By: #### A FB #### [facility] [address] [place] [address] Dr. Maggy Irving CULTURE ANAEROBICon 02-08-20 CULTURE ANAEROBIC Isolate 1 Finegoldia magna Light growth of Normal [facility] Comment on above: Result Comment: EVID ENCE BASED PRACTICE BY [facility] HAS DEMONSTRATED THAT FINEGOLDIA SPECIES ARE ROUTINELY SUSCEPTIBLE TO PIPERACILLIN-TAZOBACTAM, CEFOXITIN, ERTAPENEM, IMIPENEM METRONIDAZOLE AND VARIABLY RESISTANT TO CLINDAMYCIN. Performed By: #### L IPID, T4, TSH, FT3, CMP #### [facility] [address] [place] [address] Dr. Maggy Irving GRAM STAINon 02-07-2023 COMMENTS NO ORGANISMS OBSERVED [facility] Comment on above: Performed By: #### G STAIN #### [facility] [address] [place] [address] Dr. Maggy Irving DIPHTHEROIDS Normal [facility] Comment on above: Performed By: #### G STAIN #### [facility] [address] [place] [address] Dr. Maggy Irving EPITHELIALS Normal [facility] Comment on above: Performed By: #### G STAIN #### [facility] [address] [address] [address] Maggy Irving FUNGAL ELEMENTS Normal [facility] Comment on above: Performed By: #### G STAIN #### [facility] [address] [address] [address] Maggy Irving GRAM NEG BACILLI Normal [facility] Comment on above: Performed By: #### G STAIN #### [facility] [address] [address] [address] Maggy MEDNOZA NEG DIPPLOCOCCI Normal [facility] Comment on above: Performed By: #### G STAIN #### [facility] [address] [place] [address] Dr. Maggy Irving GRAM POS BACILLI [facility] Comment on above: Performed By: #### G STAIN #### [facility] [address] [place] [address] Dr. Maggy Irving GRAM POSITIVE COCCI Normal [facility] Comment on above: Performed By: #### G STAIN #### [facility] [address] [address] [address] Maggy Irving GRAM STAIN SOURCE 5th Metatarsal Bone [facility] Comment on above: Performed By: #### G STAIN #### [facility] [address] [place] [address] Dr. Maggy Irving GS_DIPTH [facility] Comment on above: Performed By: #### G STAIN #### [facility] [address] [place] [address] Dr. Maggy Irving WBC RARE Normal [facility] Comment on above: Performed By: #### G STAIN #### [facility] [address] [place] [address] Dr. Maggy Irving POINT OF CARE GLUCOSEon 01-18 Glucose [Mass/Vol] 114 mg/dL Critically high 74-106 [facility] Comment on above: Performed By: #### P OCGLUC #### [facility] [address] [place] [address] Dr. Maggy Irving Glucose [Mass/Vol] 122 mg/dL Critically high 74-106 [facility] Comment on above: Performed By: #### P OCGLUC #### [facility] [address] [place] [address] Dr. Maggy Irving PROF CHEM 8 (BAS METB)on Anion gap [Moles/Vol] 12.0 mmol/L Normal [facility] Comment on above: Performed By: #### L IPID, T4, TSH, FT3, CMP #### [facility] [address] [address] [address] Maggy Irving Calcium [Mass/Vol] 8.7 mg/dL Normal 8.5-10.1 [facility] Comment on above: Performed By: #### L IPID, T4, TSH, FT3, CMP #### [facility] [address] [place] [address] Dr. Maggy Irving Chloride [Moles/Vol] 104 mmol/L Normal 98-107 [facility] Comment on above: Performed By: #### L IPID, T4, TSH, FT3, CMP #### [facility] [address] [address] [address] Maggy Irving CO2 [Moles/Vol] 28.1 mmol/L Normal 21.0-32.0 [facility] Comment on above: Performed By: #### L IPID, T4, TSH, FT3, CMP #### [facility] [address] [place] [address] Dr. Maggy Irving Creatinine [Mass/Vol] 0.80 mg/dL Normal 0.70-1.30 [facility] Comment on above: Performed By: #### L IPID, T4, TSH, FT3, CMP #### [facility] [address] [place] [address] Dr. Maggy Irving EGFR-AF KITTITIAN >60 Normal >=60 [facility] Comment on above: Performed By: #### L IPID, T4, TSH, FT3, CMP #### [facility] [address] [place] [address] Dr. Maggy Irving EGFR-NON AF KITTITIAN >60 Normal >=60 [facility] Comment on above: Performed By: #### L IPID, T4, TSH, FT3, CMP #### [facility] [address] [place] [address] Dr. Maggy Irving Glucose [Mass/Vol] 129 mg/dL Critically high 74-106 [facility] Comment on above: Performed By: #### L IPID, T4, TSH, FT3, CMP #### [facility] [address] [place] [address] Dr. Maggy Irving Potassium [Moles/Vol] 4.1 mmol/L Normal 3.5-5.1 [facility] Comment on above: Performed By: #### L IPID, T4, TSH, FT3, CMP #### [facility] [address] [place] [address] Dr. Maggy Irving Sodium [Moles/Vol] 140 mmol/L Normal 136-145 [facility] Comment on above: Performed By: #### L IPID, T4, TSH, FT3, CMP #### [facility] [address] [place] [address] Dr. Maggy Irving Urea nitrogen [Mass/Vol] 20.0 mg/dL Critically high 7.0-18.0 [facility] Comment on above: Performed By: #### L IPID, T4, TSH, FT3, CMP #### [facility] [address] [place] [address] Dr. Maggy Irving Urea nitrogen/Creatinine [Mass ratio] 25.0 mg/mg Normal [facility] Comment on above: Performed By: #### L IPID, T4, TSH, FT3, CMP #### [facility] [address] [place] [address] Dr. Maggy Irving FREE T3on 01-07-2023 FREE T3 3.24 pg/mlL Normal 2.18-3.98 [facility] Comment on above: Performed By: #### L IPID, T4, TSH, FT3, CMP #### [facility] [address] [place] [address] Dr. Maggy Irving T4on 01-07-2023 T4 [Mass/Vol] 9.10 ug/dL Normal 4.50-12.10 [facility] Comment on above: Performed By: #### L IPID, T4, TSH, FT3, CMP #### [facility] [address] [place], [place] [address] Dr. Maggy Irving TSHon 01-07-2023 TSH 5.957 uIU/mL Critically high 0.358-3.740 [facility] Comment on above: Performed By: #### L IPID, T4, TSH, FT3, CMP #### [facility] [address] [place], [place] [address] Dr. Maggy Irving NM STRESS/REST MULTIon 01-03 NM STRESS/REST MULTI Patient: SILVINO OJEDA Exam Date: 01/03/2023 : 1950 Gender:M Ordering : DR MARCELLA GROSS . Admission #: [id number] Family : Order #: [id number] CLICK HERE TO VIEW EXAM RADIOLOGY REPORT [...] Khanna M.D. on 01/04/2023 at 07:45 Normal [facility] ECHOCARDIO M/2D COMPLETEon 0 12-21-2022 ECHOCARDIO M/2D COMPLETE Patient: SILVINO OJEDA Exam Date: 12/21/2022 : 1950 Gender:M Ordering : DR MARCELLA GROSS . Admission #: [id number] Family : Order #: [id number] CLICK HERE TO VIEW EXAM ECHOCARDIOGRAM REPORT [...] M.D. on 12/23/2022 at 18:05 Normal [facility] BNPon 12-07-2022 Natriuretic peptide B (Bld) [Mass/Vol] 37.0 pg/mL Normal <=900.0 [facility] Comment on above: Performed By: #### L IPID, T4, TSH, FT3, CMP #### [facility] [address] [place] [address] Dr. Maggy Irving CBC AUTO DIFFon 12-07-2022 BASO # 0.0 103/ul Normal 0.0-0.1 [facility] Comment on above: Performed By: #### L IPID, T4, TSH, FT3, CMP #### [facility] [address] [place] [address] Dr. Maggy Irving Basophils/100 WBC (Bld) 0.2 % Normal 0.2-2.0 [facility] Comment on above: Performed By: #### L IPID, T4, TSH, FT3, CMP #### [facility] [address] [place] [address] Dr. Maggy Irving EO # 0.2 103/ul Normal 0.0-0.7 [facility] Comment on above: Performed By: #### L IPID, T4, TSH, FT3, CMP #### [facility] [address] [place] [address] Dr. Maggy Irving Eosinophils/100 WBC (Bld) 3.7 % Normal 0.9-7.0 [facility] Comment on above: Performed By: #### L IPID, T4, TSH, FT3, CMP #### [facility] [address] [place] [address] Dr. Maggy Irving Erythrocyte distribution width (RBC) [Ratio] 11.9 % Normal 11.0-15.0 [facility] Comment on above: Performed By: #### L IPID, T4, TSH, FT3, CMP #### [facility] [address] [place] [address] Dr. Maggy Irving Hematocrit (Bld) [Volume fraction] 39.7 % Critically low 42.0-54.0 [facility] Comment on above: Performed By: #### L IPID, T4, TSH, FT3, CMP #### [facility] [address] [place] [address] Dr. Maggy Irving Hemoglobin (Bld) [Mass/Vol] 14.0 g/dL Normal 14.0-18.0 [facility] Comment on above: Performed By: #### L IPID, T4, TSH, FT3, CMP #### [facility] [address] [place] [address] Dr. Maggy Irving IG # 0.02 10e3/ul Normal 0.00-0.03 [facility] Comment on above: Performed By: #### L IPID, T4, TSH, FT3, CMP #### [facility] [address] [place] [address] Dr. Maggy Irivng IG % 0.5 % Normal 0.0-0.5 [facility] Comment on above: Performed By: #### L IPID, T4, TSH, FT3, CMP #### [facility] [address] [place] [address] Dr. Maggy Irving LYMPH # 0.9 103/ul Critically low 1.2-3.8 [facility] Comment on above: Performed By: #### L IPID, T4, TSH, FT3, CMP #### [facility] [address] [place] [address] Dr. Maggy Irving Lymphocytes/100 WBC (Bld) 21.1 % Normal 20.5-60.0 [facility] Comment on above: Performed By: #### L IPID, T4, TSH, FT3, CMP #### [facility] [address] [place] [address] Dr. Maggy Irving MANUAL DIFF REQ NO Normal [facility] Comment on above: Performed By: #### L IPID, T4, TSH, FT3, CMP #### [facility] [address] [place] [address] Dr. Maggy Irving MCH (RBC) [Entitic mass] 30.5 pg Normal 25.9-34.0 [facility] Comment on above: Performed By: #### L IPID, T4, TSH, FT3, CMP #### [facility] [address] [place] [address] Dr. Maggy Irving MCHC (RBC) [Mass/Vol] 35.3 g/dL Critically high 29.9-35.2 [facility] Comment on above: Performed By: #### L IPID, T4, TSH, FT3, CMP #### [facility] [address] [place] [address] Dr. Maggy Irving MCV (RBC) [Entitic vol] 86.5 fL Normal 80.0-94.0 [facility] Comment on above: Performed By: #### L IPID, T4, TSH, FT3, CMP #### [facility] [address] [place] [address] Dr. Maggy Irving MONO # 0.4 103/ul Normal 0.3-0.8 [facility] Comment on above: Performed By: #### L IPID, T4, TSH, FT3, CMP #### [facility] [address] [place] [address] Dr. Maggy Irving Monocytes/100 WBC (Bld) 8.7 % Normal 1.7-12.0 [facility] Comment on above: Performed By: #### L IPID, T4, TSH, FT3, CMP #### [facility] [address] [place] [address] Dr. Maggy Irving NEUT # 2.9 103/ul Normal 1.4-6.5 [facility] Comment on above: Performed By: #### L IPID, T4, TSH, FT3, CMP #### [facility] [address] [place] [address] Dr. Maggy Irving Neutrophils/100 WBC (Bld) 65.8 % Normal 43.0-75.0 [facility] Comment on above: Performed By: #### L IPID, T4, TSH, FT3, CMP #### [facility] [address] [place] [address] Dr. Maggy Irving Platelet mean volume (Bld) [Entitic vol] 9.9 fL Normal 9.5-13.5 [facility] Comment on above: Performed By: #### L IPID, T4, TSH, FT3, CMP #### [facility] [address] [address] [address] Maggy Irving PLT 128 103/ul Critically low 150-450 [facility] Comment on above: Performed By: #### L IPID, T4, TSH, FT3, CMP #### [facility] [address] [address] [address] Maggy Irving RBC 4.59 106/ul Critically low 4.70-6.10 [facility] Comment on above: Performed By: #### L IPID, T4, TSH, FT3, CMP #### [facility] [address] [address] [address] Maggy Irving WBC 4.4 103/ul Normal 4.0-11.0 [facility] Comment on above: Performed By: #### L IPID, T4, TSH, FT3, CMP #### [facility] [address] [place] [address] Dr. Maggy Irving FREE THYROXINE INDEX T7on FTI 2.72 Normal 1.30-4.50 [facility] Comment on above: Performed By: #### L IPID, T4, TSH, FT3, CMP #### [facility] [address] [place] [address] Dr. Maggy Irving T3U 34.0 % Normal 33.0-40.0 [facility] Comment on above: Performed By: #### L IPID, T4, TSH, FT3, CMP #### [facility] [address] [place] [address] Dr. Maggy Irving T4 [Mass/Vol] 8.00 ug/dL Normal 4.50-12.10 [facility] Comment on above: Performed By: #### L IPID, T4, TSH, FT3, CMP #### [facility] [address] [place] [address] Dr. Maggy Irving IRONon 12-07-2022 Iron [Mass/Vol] 134.0 ug/dL Normal 65.0-175.0 [facility] [place] [facility] Comment on above: Performed By: #### L IPID, T4, TSH, FT3, CMP #### [facility] [address] [place] [address] Dr. Maggy Irving LIPID PROFILEon 12-07-2022 CHOL-HDL RATIO NORM SEE BELOW Normal [facility] Comment on above: Result Comment: 3.3 - 4.4 LOW RISK 4.4 - 7.1 AVERAGE RISK 7.1 - 11.0 MODERATE RISK >11.0 HIGH RISK Performed By: #### L IPID, T4, TSH, FT3, CMP #### [facility] [address] [place] [address] Dr. Maggy Irving Cholesterol [Mass/Vol] 180 mg/dL Normal <=200 [facility] Comment on above: Performed By: #### L IPID, T4, TSH, FT3, CMP #### [facility] [address] [place] [address] Dr. Maggy Irving Cholesterol in HDL [Mass/Vol] 37 mg/dL Critically low 40-60 [facility] Comment on above: Performed By: #### L IPID, T4, TSH, FT3, CMP #### [facility] [address] [place] [address] Dr. Maggy Irving Cholesterol in LDL [Mass/Vol] 95.2 mg/dL Normal [facility] Comment on above: Performed By: #### L IPID, T4, TSH, FT3, CMP #### [facility] [address] [place] [address] Dr. Maggy Irving Cholesterol.total/Ch olesterol in HDL [Mass ratio] 4.9 {ratio} Normal [facility] Comment on above: Performed By: #### L IPID, T4, TSH, FT3, CMP #### [facility] [address] [place] [address] Dr. Maggy Irving HDL NORMAL > or = 60 mg/dl - LO W CARDIOVASCULAR RISK <40 mg/dl - HIGH CARDIOVASCULAR RISK Normal [facility] Comment on above: Performed By: #### L IPID, T4, TSH, FT3, CMP #### [facility] [address] [place] [address] Dr. Maggy Irving LDL CALC NORMAL SEE BELOW Normal [facility] Comment on above: Result Comment: <100 mg/dl OPTIMAL 100 - 129 mg/dl NEAR OR ABOVE OPTIMAL 130 - 159 mg/dl BORDERLINE HIGH 160 - 189 mg/dl HIGH >190 mg/dl VERY HIGH Performed By: #### L IPID, T4, TSH, FT3, CMP #### [facility] [address] [address] [address] Maggy Irving Triglyceride [Mass/Vol] 239 mg/dL Critically high <=150 [facility] Comment on above: Performed By: #### L IPID, T4, TSH, FT3, CMP #### [facility] [address] [place] [address] Dr. Maggy Irving VLDL CALC 47.8 mg/dL Normal [facility] Comment on above: Performed By: #### L IPID, T4, TSH, FT3, CMP #### [facility] [address] [place] [address] Dr. Maggy Irving PROF 14(COMP METB)on 023 Albumin [Mass/Vol] 3.8 g/dL Normal 3.4-5.0 [facility] Comment on above: Performed By: #### L IPID, T4, TSH, FT3, CMP #### [facility] [address] [place] [address] Dr. Maggy Irving Albumin/Globulin [Mass ratio] 1.1 {ratio} Normal [facility] Comment on above: Performed By: #### L IPID, T4, TSH, FT3, CMP #### [facility] [address] [place] [address] Dr. Maggy Irving ALP [Catalytic activity/Vol] 53 U/L Normal 46-116 [facility] Comment on above: Performed By: #### L IPID, T4, TSH, FT3, CMP #### [facility] [address] [place] [address] Dr. Maggy Irving ALT [Catalytic activity/Vol] 43 U/L Normal 16-63 [facility] Comment on above: Performed By: #### L IPID, T4, TSH, FT3, CMP #### [facility] [address] [place] [address] Dr. Maggy Irving Anion gap [Moles/Vol] 12.2 mmol/L Normal [facility] Comment on above: Performed By: #### L IPID, T4, TSH, FT3, CMP #### [facility] [address] [place] [address] Dr. Maggy Irving AST [Catalytic activity/Vol] 22 U/L Normal 15-37 [facility] Comment on above: Performed By: #### L IPID, T4, TSH, FT3, CMP #### [facility] [address] [place] [address] Dr. Maggy Irving Bilirubin [Mass/Vol] 0.6 mg/dL Normal 0.2-1.0 [facility] Comment on above: Performed By: #### L IPID, T4, TSH, FT3, CMP #### [facility] [address] [place] [address] Dr. Maggy Irving Calcium [Mass/Vol] 8.9 mg/dL Normal 8.5-10.1 [facility] Comment on above: Performed By: #### L IPID, T4, TSH, FT3, CMP #### [facility] [address] [place] [address] Dr. Maggy Irving Chloride [Moles/Vol] 104 mmol/L Normal 98-107 [facility] Comment on above: Performed By: #### L IPID, T4, TSH, FT3, CMP #### [facility] [address] [place] [address] Dr. Maggy Irving CO2 [Moles/Vol] 28.8 mmol/L Normal 21.0-32.0 [facility] [place] [facility] Comment on above: Performed By: #### L IPID, T4, TSH, FT3, CMP #### [facility] [address] [place] [address] Dr. Maggy Irving Creatinine [Mass/Vol] 0.83 mg/dL Normal 0.70-1.30 [facility] Comment on above: Performed By: #### L IPID, T4, TSH, FT3, CMP #### [facility] [address] [address] [address] Maggy Irving EGFR-AF KITTITIAN >60 Normal >=60 [facility] Comment on above: Performed By: #### L IPID, T4, TSH, FT3, CMP #### [facility] [address] [place] [address] Dr. Maggy Irving EGFR-NON AF KITTITIAN >60 Normal >=60 [facility] Comment on above: Performed By: #### L IPID, T4, TSH, FT3, CMP #### [facility] [address] [place] [address] Dr. Maggy Irving Globulin (S) [Mass/Vol] 3.4 g/dL Normal [facility] Comment on above: Performed By: #### L IPID, T4, TSH, FT3, CMP #### [facility] [address] [place] [address] Dr. Maggy Irving Glucose [Mass/Vol] 116 mg/dL Critically high 74-106 [facility] [place] Comment on above: Performed By: #### L IPID, T4, TSH, FT3, CMP #### [facility] [address] [place] [address] Dr. Maggy Irving Potassium [Moles/Vol] 4.0 mmol/L Normal 3.5-5.1 [facility] Comment on above: Performed By: #### L IPID, T4, TSH, FT3, CMP #### [facility] [address] [address] [address] Maggy Irving Protein [Mass/Vol] 7.2 g/dL Normal 6.4-8.2 [facility] Comment on above: Performed By: #### L IPID, T4, TSH, FT3, CMP #### [facility] [address] [place] [address] Dr. Maggy Irving Sodium [Moles/Vol] 141 mmol/L Normal 136-145 [facility] Comment on above: Performed By: #### L IPID, T4, TSH, FT3, CMP #### [facility] [address] [place] [address] Dr. Maggy Irving Urea nitrogen [Mass/Vol] 17.0 mg/dL Normal 7.0-18.0 [facility] Comment on above: Performed By: #### L IPID, T4, TSH, FT3, CMP #### [facility] [address] [place] [address] Dr. Maggy Irving Urea nitrogen/Creatinine [Mass ratio] 20.5 mg/mg Normal [facility] Comment on above: Performed By: #### L IPID, T4, TSH, FT3, CMP #### [facility] [address] [place] [address] Dr. Maggy Irving TSHon 12-07-2022 TSH 5.531 uIU/mL Critically high 0.358-3.740 [facility] Comment on above: Performed By: #### L IPID, T4, TSH, FT3, CMP #### [facility] [address] [place] [address] Dr. Maggy Irving TESTOSTERONE, TOTALon 2021 Testosterone [Mass/Vol] 390 ng/dL Normal 264-916 [facility] Comment on above: Result Comment: Adul t male reference interval is based on a population of healthy nonobese males (BMI <30) between 19 and 39 years old. Reynaldo et.al. JCEM 2017,102;[id number]. PMID: [id number]. Performed By: #### L IPID, T4, TSH, FT3, CMP #### [facility] [address] [place] [address] Dr. Maggy Irving CBC AUTO DIFFon 04-09-2022 BASO # 0.0 103/ul Normal 0.0-0.1 [facility] Comment on above: Performed By: #### L IPID, T4, TSH, FT3, CMP #### [facility] [address] [place] [address] Dr. Maggy Irving Basophils/100 WBC (Bld) 0.2 % Normal 0.2-2.0 [facility] Comment on above: Performed By: #### L IPID, T4, TSH, FT3, CMP #### [facility] [address] [place] [address] Dr. Maggy Irving EO # 0.2 103/ul Normal 0.0-0.7 [facility] Comment on above: Performed By: #### L IPID, T4, TSH, FT3, CMP #### [facility] [address] [place] [address] Dr. Maggy Irving Eosinophils/100 WBC (Bld) 3.1 % Normal 0.9-7.0 [facility] Comment on above: Performed By: #### L IPID, T4, TSH, FT3, CMP #### [facility] [address] [place] [address] Dr. Maggy Irving Erythrocyte distribution width (RBC) [Ratio] 12.3 % Normal 11.0-15.0 [facility] Comment on above: Performed By: #### L IPID, T4, TSH, FT3, CMP #### [facility] [address] [place] [address] Dr. Maggy Irving Hematocrit (Bld) [Volume fraction] 41.6 % Critically low 42.0-54.0 [facility] Comment on above: Performed By: #### L IPID, T4, TSH, FT3, CMP #### [facility] [address] [place] [address] Dr. Maggy Irving Hemoglobin (Bld) [Mass/Vol] 14.6 g/dL Normal 14.0-18.0 [facility] Comment on above: Performed By: #### L IPID, T4, TSH, FT3, CMP #### [facility] [address] [place] [address] Dr. Maggy Irving IG # 0.02 10e3/ul Normal 0.00-0.03 [facility] Comment on above: Performed By: #### L IPID, T4, TSH, FT3, CMP #### [facility] [address] [place] [address] Dr. Maggy Irving IG % 0.4 % Normal 0.0-0.5 [facility] Comment on above: Performed By: #### L IPID, T4, TSH, FT3, CMP #### [facility] [address] [place] [address] Dr. Maggy Irving LYMPH # 0.9 103/ul Critically low 1.2-3.8 [facility] Comment on above: Performed By: #### L IPID, T4, TSH, FT3, CMP #### [facility] [address] [place] [address] Dr. Maggy Irving Lymphocytes/100 WBC (Bld) 17.9 % Critically low 20.5-60.0 [facility] Comment on above: Performed By: #### L IPID, T4, TSH, FT3, CMP #### [facility] [address] [place] [address] Dr. Maggy Irving MANUAL DIFF REQ NO Normal [facility] Comment on above: Performed By: #### L IPID, T4, TSH, FT3, CMP #### [facility] [address] [place] [address] Dr. Maggy Irving MCH (RBC) [Entitic mass] 31.1 pg Normal 25.9-34.0 [facility] Comment on above: Performed By: #### L IPID, T4, TSH, FT3, CMP #### [facility] [address] [place] [address] Dr. Maggy Irving MCHC (RBC) [Mass/Vol] 35.1 g/dL Normal 29.9-35.2 [facility] Comment on above: Performed By: #### L IPID, T4, TSH, FT3, CMP #### [facility] [address] [place] [address] Dr. Maggy Irving MCV (RBC) [Entitic vol] 88.5 fL Normal 80.0-94.0 [facility] Comment on above: Performed By: #### L IPID, T4, TSH, FT3, CMP #### [facility] [address] [place] [address] Dr. Maggy Irving MONO # 0.4 103/ul Normal 0.3-0.8 [facility] Comment on above: Performed By: #### L IPID, T4, TSH, FT3, CMP #### [facility] [address] [place] [address] Dr. Maggy Irving Monocytes/100 WBC (Bld) 8.7 % Normal 1.7-12.0 [facility] Comment on above: Performed By: #### L IPID, T4, TSH, FT3, CMP #### [facility] [address] [place] [address] Dr. Maggy Irving NEUT # 3.4 103/ul Normal 1.4-6.5 [facility] Comment on above: Performed By: #### L IPID, T4, TSH, FT3, CMP #### [facility] [address] [place] [address] Dr. Maggy Irving Neutrophils/100 WBC (Bld) 69.7 % Normal 43.0-75.0 [facility] Comment on above: Performed By: #### L IPID, T4, TSH, FT3, CMP #### [facility] [address] [place] [address] Dr. Maggy Irving Platelet mean volume (Bld) [Entitic vol] 9.9 fL Normal 9.5-13.5 [facility] Comment on above: Performed By: #### L IPID, T4, TSH, FT3, CMP #### [facility] [address] [place] [address] Dr. Maggy Irving PLT 121 103/ul Critically low 150-450 [facility] Comment on above: Performed By: #### L IPID, T4, TSH, FT3, CMP #### [facility] [address] [place] [address] Dr. Maggy Irving RBC 4.70 106/ul Normal 4.70-6.10 [facility] Comment on above: Performed By: #### L IPID, T4, TSH, FT3, CMP #### [facility] [address] [place] [address] Dr. Maggy Irving WBC 4.8 103/ul Normal 4.0-11.0 [facility] Comment on above: Performed By: #### L IPID, T4, TSH, FT3, CMP #### [facility] [address] [address] [address] Maggy Irving FREE T3on 04-09-2022 FREE T3 3.15 pg/mlL Normal 2.18-3.98 [facility] Comment on above: Performed By: #### L IPID, T4, TSH, FT3, CMP #### [facility] [address] [address] [address] Maggy Irving GLYCOHEMOGLOBIN A1Con 2021 ADA RECOMMENDATION SEE BELOW Normal [facility] Comment on above: Result Comment: ADA RECOMMENDED LIMIT 4.0 - 6.0 ADA THERAPEUTIC TARGET < 7.0 ACTION SUGGESTED > 7.0 Performed By: #### L IPID, T4, TSH, FT3, CMP #### [facility] [address] [place] [address] Dr. Maggy Irving Glucose [Mass/Vol] 123 mg/dL Normal [facility] Comment on above: Performed By: #### L IPID, T4, TSH, FT3, CMP #### [facility] [address] [place] [address] Dr. Maggy Irving HbA1c (Bld) [Mass fraction] 5.9 % Normal 4.5-6.2 [facility] Comment on above: Performed By: #### L IPID, T4, TSH, FT3, CMP #### [facility] [address] [place] [address] Dr. Maggy Irving LIPID PROFILEon 04-09-2022 CHOL-HDL RATIO NORM SEE BELOW Normal [facility] Comment on above: Result Comment: 3.3 - 4.4 LOW RISK 4.4 - 7.1 AVERAGE RISK 7.1 - 11.0 MODERATE RISK >11.0 HIGH RISK Performed By: #### L IPID, T4, TSH, FT3, CMP #### [facility] [address] [place] [address] Dr. Maggy Irving Cholesterol [Mass/Vol] 174 mg/dL Normal <=200 [facility] Comment on above: Performed By: #### L IPID, T4, TSH, FT3, CMP #### [facility] [address] [address] [address] Maggy Irving Cholesterol in HDL [Mass/Vol] 36 mg/dL Critically low 40-60 [facility] Comment on above: Performed By: #### L IPID, T4, TSH, FT3, CMP #### [facility] [address] [address] [address] Maggy Irving Cholesterol in LDL [Mass/Vol] 114.4 mg/dL Normal [facility] Comment on above: Performed By: #### L IPID, T4, TSH, FT3, CMP #### [facility] [address] [address] [address] Maggy Irving Cholesterol.total/Ch olesterol in HDL [Mass ratio] 4.8 {ratio} Normal [facility] Comment on above: Performed By: #### L IPID, T4, TSH, FT3, CMP #### [facility] [address] [place] [address] Dr. Maggy Irving HDL NORMAL > or = 60 mg/dl - LO W CARDIOVASCULAR RISK <40 mg/dl - HIGH CARDIOVASCULAR RISK Normal [facility] Comment on above: Performed By: #### L IPID, T4, TSH, FT3, CMP #### [facility] [address] [address] [address] Maggy Irving LDL CALC NORMAL SEE BELOW Normal [facility] Comment on above: Result Comment: <100 mg/dl OPTIMAL 100 - 129 mg/dl NEAR OR ABOVE OPTIMAL 130 - 159 mg/dl BORDERLINE HIGH 160 - 189 mg/dl HIGH >190 mg/dl VERY HIGH Performed By: #### L IPID, T4, TSH, FT3, CMP #### [facility] [address] [address] [address] Maggy Irving Triglyceride [Mass/Vol] 118 mg/dL Normal <=150 [facility] Comment on above: Performed By: #### L IPID, T4, TSH, FT3, CMP #### [facility] [address] [address] [address] Magyg Irving VLDL CALC 23.6 mg/dL Normal [facility] Comment on above: Performed By: #### L IPID, T4, TSH, FT3, CMP #### [facility] [address] [place] [address] Dr. Maggy Irving OCC BLD IMMUNO SCREENon 03-20 OCCULT BLOOD Negative Normal NEGATIVE [facility] Comment on above: Performed By: #### O BSCRN #### [facility] [address] [place] [address] Dr. Maggy Irving PROF 14(COMP METB)on 022 Albumin [Mass/Vol] 3.6 g/dL Normal 3.4-5.0 [facility] Comment on above: Performed By: #### L IPID, T4, TSH, FT3, CMP #### [facility] [address] [place] [address] Dr. Maggy Irving Albumin/Globulin [Mass ratio] 1.1 {ratio} Normal [facility] Comment on above: Performed By: #### L IPID, T4, TSH, FT3, CMP #### [facility] [address] [place] [address] Dr. Maggy Irving ALP [Catalytic activity/Vol] 47 U/L Normal 46-116 [facility] Comment on above: Performed By: #### L IPID, T4, TSH, FT3, CMP #### [facility] [address] [place] [address] Dr. Maggy Irving ALT [Catalytic activity/Vol] 31 U/L Normal 16-63 [facility] Comment on above: Performed By: #### L IPID, T4, TSH, FT3, CMP #### [facility] [address] [place] [address] Dr. Maggy Irving Anion gap [Moles/Vol] 10.2 mmol/L Normal [facility] Comment on above: Performed By: #### L IPID, T4, TSH, FT3, CMP #### [facility] [address] [place] [address] Dr. Maggy Irving AST [Catalytic activity/Vol] 17 U/L Normal 15-37 [facility] Comment on above: Performed By: #### L IPID, T4, TSH, FT3, CMP #### [facility] [address] [place] [address] Dr. Maggy Irving Bilirubin [Mass/Vol] 0.6 mg/dL Normal 0.2-1.0 [facility] Comment on above: Performed By: #### L IPID, T4, TSH, FT3, CMP #### [facility] [address] [place] [address] Dr. Maggy Irving Calcium [Mass/Vol] 8.1 mg/dL Critically low 8.5-10.1 [facility] Comment on above: Performed By: #### L IPID, T4, TSH, FT3, CMP #### [facility] [address] [place] [address] Dr. Maggy Irving Chloride [Moles/Vol] 105 mmol/L Normal 98-107 [facility] Comment on above: Performed By: #### L IPID, T4, TSH, FT3, CMP #### [facility] [address] [place] [address] Dr. Maggy Irving CO2 [Moles/Vol] 29.6 mmol/L Normal 21.0-32.0 [facility] Comment on above: Performed By: #### L IPID, T4, TSH, FT3, CMP #### [facility] [address] [place] [address] Dr. Maggy Irving Creatinine [Mass/Vol] 0.89 mg/dL Normal 0.70-1.30 [facility] Comment on above: Performed By: #### L IPID, T4, TSH, FT3, CMP #### [facility] [address] [place] [address] Dr. Maggy Irving EGFR-AF KITTITIAN >60 Normal >=60 [facility] Comment on above: Performed By: #### L IPID, T4, TSH, FT3, CMP #### [facility] [address] [place] [address] Dr. Maggy Irving EGFR-NON AF KITTITIAN >60 Normal >=60 [facility] Comment on above: Performed By: #### L IPID, T4, TSH, FT3, CMP #### [facility] [address] [address] [address] Maggy Irving Globulin (S) [Mass/Vol] 3.2 g/dL Normal [facility] Comment on above: Performed By: #### L IPID, T4, TSH, FT3, CMP #### [facility] [address] [place] [address] Dr. Maggy Irving Glucose [Mass/Vol] 110 mg/dL Critically high 74-106 [facility] Comment on above: Performed By: #### L IPID, T4, TSH, FT3, CMP #### [facility] [address] [place] [address] Dr. Maggy Irving Potassium [Moles/Vol] 3.8 mmol/L Normal 3.5-5.1 [facility] Comment on above: Performed By: #### L IPID, T4, TSH, FT3, CMP #### [facility] [address] [place] [address] Dr. Maggy Irving Protein [Mass/Vol] 6.8 g/dL Normal 6.4-8.2 [facility] Comment on above: Performed By: #### L IPID, T4, TSH, FT3, CMP #### [facility] [address] [place] [address] Dr. Maggy Irving Sodium [Moles/Vol] 141 mmol/L Normal 136-145 [facility] Comment on above: Performed By: #### L IPID, T4, TSH, FT3, CMP #### [facility] [address] [place] [address] Dr. Maggy Irving Urea nitrogen [Mass/Vol] 17.0 mg/dL Normal 7.0-18.0 [facility] Comment on above: Performed By: #### L IPID, T4, TSH, FT3, CMP #### [facility] [address] [place] [address] Dr. Maggy Irving Urea nitrogen/Creatinine [Mass ratio] 19.1 mg/mg Normal [facility] Comment on above: Performed By: #### L IPID, T4, TSH, FT3, CMP #### [facility] [address] [place], [place] [address] Dr. Maggy Irving T4on 04-09-2022 T4 [Mass/Vol] 7.90 ug/dL Normal 4.50-12.10 [facility] Comment on above: Performed By: #### L IPID, T4, TSH, FT3, CMP #### [facility] [address] [address] [address] Magyg Irving TSHon 04-09-2022 TSH 4.949 uIU/mL Critically high 0.358-3.740 [facility] Comment on above: Performed By: #### L IPID, T4, TSH, FT3, CMP #### [facility] [address] [address] [address] Maggy Irving Vital Signs Date Time Vital Sign Value Performing Clinician Faci lity 04-06-2024 09:43-0400 Body height 177.8 cm [facility] 04-06-2024 09:43-0400 Body mass index (BMI) [Ratio] 34.4 kg/m2 [facility] 04-06-2024 09:43-0400 Body temperature 98.3 [degF] [facility] 04-06-2024 09:43-0400 Body weight 109.08 kg [facility] 04-06-2024 09:43-0400 Diastolic blood pressure 78 mm[Hg] [facility] 04-06-2024 09:43-0400 Heart rate 87 /min [facility] 04-06-2024 09:43-0400 Respiratory rate 18 /min [facility] 04-06-2024 09:43-0400 SaO2% (BldA) [Mass fraction] 96 % [facility] 04-06-2024 09:43-0400 Systolic blood pressure 146 mm[Hg] [facility] Encounters Encounter Date Encounter Type Care Provider Facility Start: 04-27-2024 End: 04-27-2024 ambulatory Marcella Gross [facility] Work Phone: Start: 04-27-2024 End: 04-27-2024 Departed Referred MD Marcella Gross Work Phone: [facility] Start: 04-06-2024 End: 04-06-2024 ambulatory [facility] Work Phone: Start: 04-06-2024 End: 04-06-2024 Patient encounter procedure [facility] Work Phone: Start: 02-10-2023 End: 02-11-2023 ambulatory IVELISSE ORNELAS Facility:[facility] Start: 02-07-2023 End: 02-07-2023 ambulatory IVELISSE ORNELAS Facility:[facility] Start: 02-06-2023 Encounter for preprocedural laboratory examination IVELISSE ORNELAS [facility] Start: 01-31-2023 End: 02-01-2023 ambulatory [...] L IPID, T4, TSH, FT3, CMP #### [facility] [address] [place] [address] Dr. Maggy Irving Payers Date Payer Category Payer Self-pay 1957 Medicare [id number] 1957 Unknown [id number] 1950 Unknown [id number] 2.16.84 [id number] 1950 Unknown [id number] 2.16.84 [id number] 1952 Unknown [id number] 2.16.84 [id number] 1952 Unknown [id number] 2.16.84 [id number] 1952 Unknown [id number] 2.16.84 [id number] 1952 Unknown [id number] 2.16.84 [id number] 1952 Unknown [id number] 2.16.84 0.1.193794.3.579.2.593 1952 Unknown [id number] 2.16.84 [id number] 1952 Unknown [id number] 2.16.84 [id number] 1952 Unknown [id number] 2.16.84 [id number] 1952 Unknown [id number] 2.16.84 [id number] Medicare Medicare [id number] Unknown [id number] 2.16.8 [id number] Social History Date Type Detail Facility Tobacco smoking stat [facility] Unknown if ever smoked [facility] Work Phone: Start: 1950 Sex Assigned At Male [facility] Clinical Note 02-07-2023 Note Date & [...] authenticated by: OLVIN KHANNA Date: 2023-02-07 09:41 [facility] Evaluation note Note Date & Type Note Facility Evaluation note Diagnosis Onset Date Bacterial conjunctivitis of right eye acute [facility] Work Phone: Summary Purpose Family History No [...] and content) DATE CREATED AUTHOR 02/25/2023 [facility] DATE CREATED AUTHOR AUTHOR'S ORGANIZ ATION 05/02/2024 [facility] Care Teams (unrecognized sec [...] BE BASED ON THE PRIMARY CLINICAL RECORDS. [facility] [employer] [facility] provides no warranty or guarantee of the accuracy or completeness of information in this document.
[2024-07-03 07:23] LABS: Basophils Percent Auto 0.5 % (0.2-2.0); Eosinophils Absolute Auto 0.2 10^3/uL (0.0-0.7); Eosinophils Percent Auto 3.7 % (0.9-7.0); Hematocrit 39.5 % (42.0-54.0); Hemoglobin 13.8 g/dL (14.0-18.0); Immature Granulocytes Abs Auto 0.02 10^3/uL (0.00-0.03); Immature Granulocytes Pct Auto 0.5 % (0.0-0.5); Lymphocytes Percent Auto 23.7 % (20.5-60.0); Mean Corpuscular HGB Conc 34.9 g/dL (29.9-35.2); Mean Corpuscular Volume 88.8 fL (80.0-94.0); Mean Platelet Volume 10.5 fL (9.5-13.5); Monocytes Absolute Auto 0.4 10^3/uL (0.3-0.8); Monocytes Percent Auto 8.6 % (1.7-12.0); Neutrophils Absolute Auto 2.6 10^3/uL (1.4-6.5); Platelet Count 115 10^3/uL (150-450); Red Blood Count 4.45 10^6/uL (4.70-6.10); White Blood Count 4.1 10^3/uL (4.0-11.0)
== END 2024-07-03 06:58 | disposition home or self-care (01) ==
LOC: LAB 07:03
PROVIDERS: PCP Family Medicine; Visit Provider Family Medicine
DX: D64.9 Anemia, unspecified (principal)
CPT/HCPCS: 36415; 85025

== ENCOUNTER 2024-10-24 09:44 | Outpatient (OUT) | payer MEDICARE, OTHER, SELFPAY ==
--- OUTSIDE RECORDS SUMMARY | 2024-10-24 09:51 | XMS_ITS | CCD ---
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 DR: SPEC TYPE: Impression DEPT: ALEXSANDRA Cervantes ENTERED BY: [id number] RECV BY: [id number] ORDERED: PATHREVIEW ORDERED: PATHREVIEW Pathologist Review Abnormal [...] shifted granulocytes, or granulocytic dysplasia observed CPT: 64338 -------- -------- Specimen: [id number] Received: 04/30/24 Status: CASS Moore Num: [id number] Spec Type: Impression Subm Dr: Marcella Gross MD Tissues: PATHPER Procedures: PATHREVIEW -------- Patient: Silvino Ojeda Joel [id number] (Continued) -------- Signed (signature on file) ChinAlexys Irving MD 04/30/241945 Normal [facility] CULTURE OTHERon 02-11-2023 [...] F Trimethoprim/Sulfamet hoxazole <=10 S F Normal [facility] Comment on above: Performed By: #### L IPID, T4, TSH, FT3, CMP #### [facility] [address] [address] [address] Maggy Irving FUNGAL CULTUREon 02-09-2023 Fungus Stain Final report Normal [facility] Comment on above: Performed By: #### L IPID, T4, TSH, FT3, CMP #### [facility] [address] [address] [address] Maggy Irving Result 1 Comment Normal [facility] Comment on above: Result Comment: SUDHIR/ Calcofluor preparation: no fungus observed. Performed By: #### L IPID, T4, TSH, FT3, CMP #### [facility] [address] [address] [address] Maggy Irving ACID FAST SMEAR AND CXon Acid Fast Smear Negative Normal [facility] Comment on above: Performed By: #### A FB #### [facility] [address] [place] [address] Dr. Maggy Irving [employer] Specimen Processing Tissue Grinding [facility] Comment on above: Performed By: #### A FB #### [facility] [address] [place] [address] Dr. Maggy Irving CULTURE ANAEROBICon 02-08-20 CULTURE ANAEROBIC Isolate 1 Finegoldia magna Light growth of Normal [facility] Comment on above: Result Comment: EVID ENCE BASED PRACTICE BY [facility] HAS DEMONSTRATED THAT FINEGOLDIA SPECIES ARE ROUTINELY SUSCEPTIBLE TO PIPERACILLIN-TAZOBACTAM, CEFOXITIN, ERTAPENEM, IMIPENEM METRONIDAZOLE AND VARIABLY RESISTANT TO CLINDAMYCIN. Performed By: #### L IPID, T4, TSH, FT3, CMP #### [facility] [address] [place] [address] Dr. Maggy Irving GRAM STAINon 02-07-2023 COMMENTS NO ORGANISMS OBSERVED [facility] Comment on above: Performed By: #### G STAIN #### [facility] [address] [place] [address] Dr. Maggy Irving DIPHTHEROIDS Normal [facility] Comment on above: Performed By: #### G STAIN #### [facility] [address] [place] [address] Dr. Maggy Irving EPITHELIALS Normal [facility] Comment on above: Performed By: #### G STAIN #### [facility] [address] [address] [address] Maggy Irving FUNGAL ELEMENTS Normal [facility] Comment on above: Performed By: #### G STAIN #### [facility] [address] [address] [address] Maggy Irving GRAM NEG BACILLI Normal [facility] Comment on above: Performed By: #### G STAIN #### [facility] [address] [address] [address] Maggy MENDOZA NEG DIPPLOCOCCI Normal [facility] Comment on above: Performed By: #### G STAIN #### [facility] [address] [place] [address] Dr. Maggy Irving GRAM POS BACILLI [facility] Comment on above: Performed By: #### G STAIN #### [facility] [address] [place] [address] Dr. Maggy Irving GRAM POSITIVE COCCI Normal [facility] Comment on above: Performed By: #### G STAIN #### [facility] [address] [address] [address] Maggy Irving GRAM STAIN SOURCE 5th Metatarsal Bone [facility] Comment on above: Performed By: #### G STAIN #### [facility] [address] [place] [address] Dr. Maggy Irving GS_DIPTH [facility] Comment on above: Performed By: #### G STAIN #### [facility] [address] [place] [address] Dr. Maggy Irving WBC RARE Normal [facility] Comment on above: Performed By: #### G STAIN #### [facility] [address] [place] [address] Dr. Maggy Irving POINT OF CARE GLUCOSEon 01-18 Glucose [Mass/Vol] 114 mg/dL Critically high 74-106 [facility] Comment on above: Performed By: #### P OCGLUC #### [facility] [address] [place] [address] Dr. Maggy Irving Glucose [Mass/Vol] 122 mg/dL Critically high 74-106 T [facility] Comment on above: Performed By: #### P OCGLUC #### [facility] [address] [place] [address] Dr. Maggy Irving PROF CHEM 8 (BAS METB)on Anion gap [Moles/Vol] 12.0 mmol/L Normal [facility] Comment on above: Performed By: #### L IPID, T4, TSH, FT3, CMP #### [facility] [address] [address] [address] Maggy Irving Calcium [Mass/Vol] 8.7 mg/dL Normal 8.5-10.1 [facility] Comment on above: Performed By: #### L IPID, T4, TSH, FT3, CMP #### [facility] [address] [place] [address] Dr. Maggy Irving Chloride [Moles/Vol] 104 mmol/L Normal 98-107 [facility] Comment on above: Performed By: #### L IPID, T4, TSH, FT3, CMP #### [facility] [address] [address] [address] Maggy Irving CO2 [Moles/Vol] 28.1 mmol/L Normal 21.0-32.0 [facility] Comment on above: Performed By: #### L IPID, T4, TSH, FT3, CMP #### [facility] [address] [place] [address] Dr. Maggy Irving Creatinine [Mass/Vol] 0.80 mg/dL Normal 0.70-1.30 [facility] Comment on above: Performed By: #### L IPID, T4, TSH, FT3, CMP #### [facility] [address] [place] [address] Dr. Maggy Irving EGFR-AF SERBIAN >60 Normal >=60 [facility] Comment on above: Performed By: #### L IPID, T4, TSH, FT3, CMP #### [facility] [address] [place] [address] Dr. Maggy Irving EGFR-NON AF SERBIAN >60 Normal >=60 [facility] Comment on above: Performed By: #### L IPID, T4, TSH, FT3, CMP #### [facility] [address] [place] [address] Dr. Maggy Irving Glucose [Mass/Vol] 129 mg/dL Critically high 74-106 T [facility] Comment on above: Performed By: #### L IPID, T4, TSH, FT3, CMP #### [facility] [address] [place] [address] Dr. Maggy Irving Potassium [Moles/Vol] 4.1 mmol/L Normal 3.5-5.1 [facility] Comment on above: Performed By: #### L IPID, T4, TSH, FT3, CMP #### [facility] [address] [place] [address] Dr. Maggy Irving Sodium [Moles/Vol] 140 mmol/L Normal 136-145 [facility] Comment on above: Performed By: #### L IPID, T4, TSH, FT3, CMP #### [facility] [address] [place] [address] Dr. Maggy Irving Urea nitrogen [Mass/Vol] 20.0 mg/dL Critically high 7.0-18.0 [facility] Comment on above: Performed By: #### L IPID, T4, TSH, FT3, CMP #### [facility] [address] [place] [address] Dr. Maggy Irving Urea nitrogen/Creatinine [Mass ratio] 25.0 mg/mg Normal [facility] Comment on above: Performed By: #### L IPID, T4, TSH, FT3, CMP #### [facility] [address] [place] [address] Dr. Maggy Irving FREE T3on 01-07-2023 FREE T3 3.24 pg/mlL Normal 2.18-3.98 [facility] Comment on above: Performed By: #### L IPID, T4, TSH, FT3, CMP #### [facility] [address] [place] [address] Dr. Maggy Irving T4on 01-07-2023 T4 [Mass/Vol] 9.10 ug/dL Normal 4.50-12.10 [facility] Comment on above: Performed By: #### L IPID, T4, TSH, FT3, CMP #### [facility] [address], [place] [address] Dr. Maggy Irving TSHon 01-07-2023 TSH 5.957 uIU/mL Critically high 0.358-3.740 [facility] Comment on above: Performed By: #### L IPID, T4, TSH, FT3, CMP #### [facility] [address], [place] [address] Dr. Maggy Irving NM STRESS/REST MULTIon 01-03 NM STRESS/REST MULTI Patient: SILVINO OJEDA Exam Date: 01/03/2023 : 1950 Gender:M Ordering : DR MARCELLA GROSS . Admission #: [id number] Family : Order #: [id number] CLICK HERE TO VIEW EXAM RADIOLOGY REPORT [...] Khanna M.D. on 01/04/2023 at 07:45 Normal [facility] ECHOCARDIO M/2D COMPLETEon 0 12-21-2022 ECHOCARDIO M/2D COMPLETE Patient: SILVINO OJEDA Exam Date: 12/21/2022 : 1950 Gender:M Ordering : DR MARCELLA GROSS . Admission #: [id number] Family : Order #: [id number] CLICK HERE TO VIEW EXAM ECHOCARDIOGRAM REPORT [...] M.D. on 12/23/2022 at 18:05 Normal [facility] BNPon 12-07-2022 Natriuretic peptide B (Bld) [Mass/Vol] 37.0 pg/mL Normal <=900.0 [facility] Comment on above: Performed By: #### L IPID, T4, TSH, FT3, CMP #### [facility] [address] [place] [address] Dr. Maggy Irving CBC AUTO DIFFon 12-07-2022 BASO # 0.0 103/ul Normal 0.0-0.1 [facility] Comment on above: Performed By: #### L IPID, T4, TSH, FT3, CMP #### [facility] [address] [place] [address] Dr. Maggy Irving Basophils/100 WBC (Bld) 0.2 % Normal 0.2-2.0 [facility] Comment on above: Performed By: #### L IPID, T4, TSH, FT3, CMP #### [facility] [address] [place] [address] Dr. Maggy Irving EO # 0.2 103/ul Normal 0.0-0.7 [facility] Comment on above: Performed By: #### L IPID, T4, TSH, FT3, CMP #### [facility] [address] [place] [address] Dr. Maggy Irving Eosinophils/100 WBC (Bld) 3.7 % Normal 0.9-7.0 [facility] Comment on above: Performed By: #### L IPID, T4, TSH, FT3, CMP #### [facility] [address] [place] [address] Dr. Maggy Irving Erythrocyte distribution width (RBC) [Ratio] 11.9 % Normal 11.0-15.0 [facility] Comment on above: Performed By: #### L IPID, T4, TSH, FT3, CMP #### [facility] [address] [place] [address] Dr. Maggy Irving Hematocrit (Bld) [Volume fraction] 39.7 % Critically low 42.0-54.0 [facility] Comment on above: Performed By: #### L IPID, T4, TSH, FT3, CMP #### [facility] [address] [place] [address] Dr. Maggy Irving Hemoglobin (Bld) [Mass/Vol] 14.0 g/dL Normal 14.0-18.0 [facility] Comment on above: Performed By: #### L IPID, T4, TSH, FT3, CMP #### [facility] [address] [place] [address] Dr. Maggy Irving IG # 0.02 10e3/ul Normal 0.00-0.03 [facility] Comment on above: Performed By: #### L IPID, T4, TSH, FT3, CMP #### [facility] [address] [place] [address] Dr. Maggy Irving IG % 0.5 % Normal 0.0-0.5 [facility] Comment on above: Performed By: #### L IPID, T4, TSH, FT3, CMP #### [facility] [address] [place] [address] Dr. Maggy Irving LYMPH # 0.9 103/ul Critically low 1.2-3.8 [facility] Comment on above: Performed By: #### L IPID, T4, TSH, FT3, CMP #### [facility] [address] [place] [address] Dr. Maggy Irving Lymphocytes/100 WBC (Bld) 21.1 % Normal 20.5-60.0 [facility] Comment on above: Performed By: #### L IPID, T4, TSH, FT3, CMP #### [facility] [address] [place] [address] Dr. Maggy Irving MANUAL DIFF REQ NO Normal [facility] Comment on above: Performed By: #### L IPID, T4, TSH, FT3, CMP #### [facility] [address] [place] [address] Dr. Maggy Irving MCH (RBC) [Entitic mass] 30.5 pg Normal 25.9-34.0 [facility] Comment on above: Performed By: #### L IPID, T4, TSH, FT3, CMP #### [facility] [address] [place] [address] Dr. Maggy Irving MCHC (RBC) [Mass/Vol] 35.3 g/dL Critically high 29.9-35.2 [facility] Comment on above: Performed By: #### L IPID, T4, TSH, FT3, CMP #### [facility] [address] [place] [address] Dr. Maggy Irving MCV (RBC) [Entitic vol] 86.5 fL Normal 80.0-94.0 [facility] Comment on above: Performed By: #### L IPID, T4, TSH, FT3, CMP #### [facility] [address] [place] [address] Dr. Maggy Irving MONO # 0.4 103/ul Normal 0.3-0.8 [facility] Comment on above: Performed By: #### L IPID, T4, TSH, FT3, CMP #### [facility] [address] [place] [address] Dr. Maggy Irving Monocytes/100 WBC (Bld) 8.7 % Normal 1.7-12.0 [facility] Comment on above: Performed By: #### L IPID, T4, TSH, FT3, CMP #### [facility] [address] [place] [address] Dr. Maggy Irving NEUT # 2.9 103/ul Normal 1.4-6.5 [facility] Comment on above: Performed By: #### L IPID, T4, TSH, FT3, CMP #### [facility] [address] [place] [address] Dr. Maggy Irving Neutrophils/100 WBC (Bld) 65.8 % Normal 43.0-75.0 [facility] Comment on above: Performed By: #### L IPID, T4, TSH, FT3, CMP #### [facility] [address] [place] [address] Dr. Maggy Irving Platelet mean volume (Bld) [Entitic vol] 9.9 fL Normal 9.5-13.5 [facility] Comment on above: Performed By: #### L IPID, T4, TSH, FT3, CMP #### [facility] [address] [address] [address] Maggy Irving PLT 128 103/ul Critically low 150-450 [facility] Comment on above: Performed By: #### L IPID, T4, TSH, FT3, CMP #### [facility] [address] [address] [address] Maggy Irving RBC 4.59 106/ul Critically low 4.70-6.10 [facility] Comment on above: Performed By: #### L IPID, T4, TSH, FT3, CMP #### [facility] [address] [address] [address] Maggy Irving WBC 4.4 103/ul Normal 4.0-11.0 [facility] Comment on above: Performed By: #### L IPID, T4, TSH, FT3, CMP #### [facility] [address] [place] [address] Dr. Maggy Irving FREE THYROXINE INDEX T7on FTI 2.72 Normal 1.30-4.50 [facility] Comment on above: Performed By: #### L IPID, T4, TSH, FT3, CMP #### [facility] [address] [place] [address] Dr. Maggy Irving T3U 34.0 % Normal 33.0-40.0 [facility] Comment on above: Performed By: #### L IPID, T4, TSH, FT3, CMP #### [facility] [address] [place] [address] Dr. Maggy Irving T4 [Mass/Vol] 8.00 ug/dL Normal 4.50-12.10 [facility] Comment on above: Performed By: #### L IPID, T4, TSH, FT3, CMP #### [facility] [address] [place] [address] Dr. Maggy Irving IRONon 12-07-2022 Iron [Mass/Vol] 134.0 ug/dL Normal 65.0-175.0 [facility] Comment on above: Performed By: #### L IPID, T4, TSH, FT3, CMP #### [facility] [address] [place] [address] Dr. Maggy Irving LIPID PROFILEon 12-07-2022 CHOL-HDL RATIO NORM SEE BELOW Normal [facility] Comment on above: Result Comment: 3.3 - 4.4 LOW RISK 4.4 - 7.1 AVERAGE RISK 7.1 - 11.0 MODERATE RISK >11.0 HIGH RISK Performed By: #### L IPID, T4, TSH, FT3, CMP #### [facility] [address] [place] [address] Dr. Maggy Irving Cholesterol [Mass/Vol] 180 mg/dL Normal <=200 [facility] Comment on above: Performed By: #### L IPID, T4, TSH, FT3, CMP #### [facility] [address] [place] [address] Dr. Maggy Irving Cholesterol in HDL [Mass/Vol] 37 mg/dL Critically low 40-60 [facility] Comment on above: Performed By: #### L IPID, T4, TSH, FT3, CMP #### [facility] [address] [place] [address] Dr. Maggy Irving Cholesterol in LDL [Mass/Vol] 95.2 mg/dL Normal [facility] Comment on above: Performed By: #### L IPID, T4, TSH, FT3, CMP #### [facility] [address] [place] [address] Dr. Maggy Irving Cholesterol.total/Ch olesterol in HDL [Mass ratio] 4.9 {ratio} Normal [facility] Comment on above: Performed By: #### L IPID, T4, TSH, FT3, CMP #### [facility] [address] [place] [address] Dr. Maggy Irving HDL NORMAL > or = 60 mg/dl - LO W CARDIOVASCULAR RISK <40 mg/dl - HIGH CARDIOVASCULAR RISK Normal [facility] Comment on above: Performed By: #### L IPID, T4, TSH, FT3, CMP #### [facility] [address] [place] [address] Dr. Maggy Irving LDL CALC NORMAL SEE BELOW Normal [facility] Comment on above: Result Comment: <100 mg/dl OPTIMAL 100 - 129 mg/dl NEAR OR ABOVE OPTIMAL 130 - 159 mg/dl BORDERLINE HIGH 160 - 189 mg/dl HIGH >190 mg/dl VERY HIGH Performed By: #### L IPID, T4, TSH, FT3, CMP #### [facility] [address] [address] [address] Maggy Irving Triglyceride [Mass/Vol] 239 mg/dL Critically high <=150 [facility] Comment on above: Performed By: #### L IPID, T4, TSH, FT3, CMP #### [facility] [address] [place] [address] Dr. Maggy Irving VLDL CALC 47.8 mg/dL Normal [facility] Comment on above: Performed By: #### L IPID, T4, TSH, FT3, CMP #### [facility] [address] [place] [address] Dr. Maggy Irving PROF 14(COMP METB)on 023 Albumin [Mass/Vol] 3.8 g/dL Normal 3.4-5.0 [facility] Comment on above: Performed By: #### L IPID, T4, TSH, FT3, CMP #### [facility] [address] [place] [address] Dr. Maggy Irving Albumin/Globulin [Mass ratio] 1.1 {ratio} Normal [facility] Comment on above: Performed By: #### L IPID, T4, TSH, FT3, CMP #### [facility] [address] [place] [address] Dr. Maggy Irving ALP [Catalytic activity/Vol] 53 U/L Normal 46-116 [facility] Comment on above: Performed By: #### L IPID, T4, TSH, FT3, CMP #### [facility] [address] [place] [address] Dr. Maggy Irving ALT [Catalytic activity/Vol] 43 U/L Normal 16-63 [facility] Comment on above: Performed By: #### L IPID, T4, TSH, FT3, CMP #### [facility] [address] [place] [address] Dr. Maggy Irving Anion gap [Moles/Vol] 12.2 mmol/L Normal [facility] Comment on above: Performed By: #### L IPID, T4, TSH, FT3, CMP #### [facility] [address] [place] [address] Dr. Maggy Irving AST [Catalytic activity/Vol] 22 U/L Normal 15-37 [facility] Comment on above: Performed By: #### L IPID, T4, TSH, FT3, CMP #### [facility] [address] [place] [address] Dr. Maggy Irving Bilirubin [Mass/Vol] 0.6 mg/dL Normal 0.2-1.0 [facility] Comment on above: Performed By: #### L IPID, T4, TSH, FT3, CMP #### [facility] [address] [place] [address] Dr. Maggy Irving Calcium [Mass/Vol] 8.9 mg/dL Normal 8.5-10.1 [facility] Comment on above: Performed By: #### L IPID, T4, TSH, FT3, CMP #### [facility] [address] [place] [address] Dr. Maggy Irving Chloride [Moles/Vol] 104 mmol/L Normal 98-107 [facility] Comment on above: Performed By: #### L IPID, T4, TSH, FT3, CMP #### [facility] [address] [place] [address] Dr. Maggy Irving CO2 [Moles/Vol] 28.8 mmol/L Normal 21.0-32.0 [facility] Comment on above: Performed By: #### L IPID, T4, TSH, FT3, CMP #### [facility] [address] [place] [address] Dr. Maggy Irving Creatinine [Mass/Vol] 0.83 mg/dL Normal 0.70-1.30 [facility] Comment on above: Performed By: #### L IPID, T4, TSH, FT3, CMP #### [facility] [address] [address] [address] Maggy Irving EGFR-AF SERBIAN >60 Normal >=60 [facility] Comment on above: Performed By: #### L IPID, T4, TSH, FT3, CMP #### [facility] [address] [place] [address] Dr. Maggy Irving EGFR-NON AF SERBIAN >60 Normal >=60 [facility] Comment on above: Performed By: #### L IPID, T4, TSH, FT3, CMP #### [facility] [address] [place] [address] Dr. Maggy Irving Globulin (S) [Mass/Vol] 3.4 g/dL Normal [facility] Comment on above: Performed By: #### L IPID, T4, TSH, FT3, CMP #### [facility] [address] [place] [address] Dr. Maggy Irving Glucose [Mass/Vol] 116 mg/dL Critically high 74-106 [facility] Comment on above: Performed By: #### L IPID, T4, TSH, FT3, CMP #### [facility] [address] [place] [address] Dr. Maggy Irving Potassium [Moles/Vol] 4.0 mmol/L Normal 3.5-5.1 [facility] Comment on above: Performed By: #### L IPID, T4, TSH, FT3, CMP #### [facility] [address] [address] [address] Maggy Irving Protein [Mass/Vol] 7.2 g/dL Normal 6.4-8.2 [facility] Comment on above: Performed By: #### L IPID, T4, TSH, FT3, CMP #### [facility] [address] [place] [address] Dr. Maggy Irving Sodium [Moles/Vol] 141 mmol/L Normal 136-145 [facility] Comment on above: Performed By: #### L IPID, T4, TSH, FT3, CMP #### [facility] [address] [place] [address] Dr. Maggy Irving Urea nitrogen [Mass/Vol] 17.0 mg/dL Normal 7.0-18.0 [facility] Comment on above: Performed By: #### L IPID, T4, TSH, FT3, CMP #### [facility] [address] [place] [address] Dr. Maggy Irving Urea nitrogen/Creatinine [Mass ratio] 20.5 mg/mg Normal [facility] Comment on above: Performed By: #### L IPID, T4, TSH, FT3, CMP #### [facility] [address] [place] [address] Dr. Maggy Irving TSHon 12-07-2022 TSH 5.531 uIU/mL Critically high 0.358-3.740 [facility] Comment on above: Performed By: #### L IPID, T4, TSH, FT3, CMP #### [facility] [address] [place] [address] Dr. Maggy Irving TESTOSTERONE, TOTALon 2021 Testosterone [Mass/Vol] 390 ng/dL Normal 264-916 [facility] Comment on above: Result Comment: Adul t male reference interval is based on a population of healthy nonobese males (BMI <30) between 19 and 39 years old. Reynaldo et.al. JCEM 2017,102;[id number]. PMID: [id number]. Performed By: #### L IPID, T4, TSH, FT3, CMP #### [facility] [address] [place] [address] Dr. Maggy Irving CBC AUTO DIFFon 04-09-2022 BASO # 0.0 103/ul Normal 0.0-0.1 [facility] Comment on above: Performed By: #### L IPID, T4, TSH, FT3, CMP #### [facility] [address] [place] [address] Dr. Maggy Irving Basophils/100 WBC (Bld) 0.2 % Normal 0.2-2.0 [facility] Comment on above: Performed By: #### L IPID, T4, TSH, FT3, CMP #### [facility] [address] [place] [address] Dr. Maggy Irving EO # 0.2 103/ul Normal 0.0-0.7 [facility] Comment on above: Performed By: #### L IPID, T4, TSH, FT3, CMP #### [facility] [address] [place] [address] Dr. Maggy Irving Eosinophils/100 WBC (Bld) 3.1 % Normal 0.9-7.0 [facility] Comment on above: Performed By: #### L IPID, T4, TSH, FT3, CMP #### [facility] [address] [place] [address] Dr. Maggy Irving Erythrocyte distribution width (RBC) [Ratio] 12.3 % Normal 11.0-15.0 [facility] Comment on above: Performed By: #### L IPID, T4, TSH, FT3, CMP #### [facility] [address] [place] [address] Dr. Maggy Irving Hematocrit (Bld) [Volume fraction] 41.6 % Critically low 42.0-54.0 [facility] Comment on above: Performed By: #### L IPID, T4, TSH, FT3, CMP #### [facility] [address] [place] [address] Dr. Maggy Irving Hemoglobin (Bld) [Mass/Vol] 14.6 g/dL Normal 14.0-18.0 [facility] Comment on above: Performed By: #### L IPID, T4, TSH, FT3, CMP #### [facility] [address] [place] [address] Dr. Maggy Irving IG # 0.02 10e3/ul Normal 0.00-0.03 [facility] Comment on above: Performed By: #### L IPID, T4, TSH, FT3, CMP #### [facility] [address] [place] [address] Dr. Maggy Irving IG % 0.4 % Normal 0.0-0.5 [facility] Comment on above: Performed By: #### L IPID, T4, TSH, FT3, CMP #### [facility] [address] [place] [address] Dr. Maggy Irving LYMPH # 0.9 103/ul Critically low 1.2-3.8 [facility] Comment on above: Performed By: #### L IPID, T4, TSH, FT3, CMP #### [facility] [address] [place] [address] Dr. Maggy Irving Lymphocytes/100 WBC (Bld) 17.9 % Critically low 20.5-60.0 [facility] Comment on above: Performed By: #### L IPID, T4, TSH, FT3, CMP #### [facility] [address] [place] [address] Dr. Maggy Irving MANUAL DIFF REQ NO Normal [facility] Comment on above: Performed By: #### L IPID, T4, TSH, FT3, CMP #### [facility] [address] [place] [address] Dr. Maggy Irving MCH (RBC) [Entitic mass] 31.1 pg Normal 25.9-34.0 [facility] Comment on above: Performed By: #### L IPID, T4, TSH, FT3, CMP #### [facility] [address] [place] [address] Dr. Maggy Irving MCHC (RBC) [Mass/Vol] 35.1 g/dL Normal 29.9-35.2 [facility] Comment on above: Performed By: #### L IPID, T4, TSH, FT3, CMP #### [facility] [address] [place] [address] Dr. Maggy Irving MCV (RBC) [Entitic vol] 88.5 fL Normal 80.0-94.0 [facility] Comment on above: Performed By: #### L IPID, T4, TSH, FT3, CMP #### [facility] [address] [place] [address] Dr. Maggy Irving MONO # 0.4 103/ul Normal 0.3-0.8 [facility] Comment on above: Performed By: #### L IPID, T4, TSH, FT3, CMP #### [facility] [address] [place] [address] Dr. Maggy Irving Monocytes/100 WBC (Bld) 8.7 % Normal 1.7-12.0 [facility] Comment on above: Performed By: #### L IPID, T4, TSH, FT3, CMP #### [facility] [address] [place] [address] Dr. Maggy Irving NEUT # 3.4 103/ul Normal 1.4-6.5 [facility] Comment on above: Performed By: #### L IPID, T4, TSH, FT3, CMP #### [facility] [address] [place] [address] Dr. Maggy Irving Neutrophils/100 WBC (Bld) 69.7 % Normal 43.0-75.0 [facility] Comment on above: Performed By: #### L IPID, T4, TSH, FT3, CMP #### [facility] [address] [place] [address] Dr. Maggy Irving Platelet mean volume (Bld) [Entitic vol] 9.9 fL Normal 9.5-13.5 [facility] Comment on above: Performed By: #### L IPID, T4, TSH, FT3, CMP #### [facility] [address] [place] [address] Dr. Maggy Irving PLT 121 103/ul Critically low 150-450 [facility] Comment on above: Performed By: #### L IPID, T4, TSH, FT3, CMP #### [facility] [address] [place] [address] Dr. Maggy Irving RBC 4.70 106/ul Normal 4.70-6.10 [facility] Comment on above: Performed By: #### L IPID, T4, TSH, FT3, CMP #### [facility] [address] [place] [address] Dr. Maggy Irving WBC 4.8 103/ul Normal 4.0-11.0 [facility] Comment on above: Performed By: #### L IPID, T4, TSH, FT3, CMP #### [facility] [address] [address] [address] Maggy Irving FREE T3on 04-09-2022 FREE T3 3.15 pg/mlL Normal 2.18-3.98 [facility] Comment on above: Performed By: #### L IPID, T4, TSH, FT3, CMP #### [facility] [address] [address] [address] Maggy Irving GLYCOHEMOGLOBIN A1Con 2021 ADA RECOMMENDATION SEE BELOW Normal [facility] Comment on above: Result Comment: ADA RECOMMENDED LIMIT 4.0 - 6.0 ADA THERAPEUTIC TARGET < 7.0 ACTION SUGGESTED > 7.0 Performed By: #### L IPID, T4, TSH, FT3, CMP #### [facility] [address] [place] [address] Dr. Maggy Irving Glucose [Mass/Vol] 123 mg/dL Normal [facility] Comment on above: Performed By: #### L IPID, T4, TSH, FT3, CMP #### [facility] [address] [place] [address] Dr. Maggy Irving HbA1c (Bld) [Mass fraction] 5.9 % Normal 4.5-6.2 [facility] Comment on above: Performed By: #### L IPID, T4, TSH, FT3, CMP #### [facility] [address] [place] [address] Dr. Maggy Irving LIPID PROFILEon 04-09-2022 CHOL-HDL RATIO NORM SEE BELOW Normal [facility] Comment on above: Result Comment: 3.3 - 4.4 LOW RISK 4.4 - 7.1 AVERAGE RISK 7.1 - 11.0 MODERATE RISK >11.0 HIGH RISK Performed By: #### L IPID, T4, TSH, FT3, CMP #### [facility] [address] [place] [address] Dr. Maggy Irving Cholesterol [Mass/Vol] 174 mg/dL Normal <=200 [facility] Comment on above: Performed By: #### L IPID, T4, TSH, FT3, CMP #### [facility] [address] [address] [address] Maggy Irving Cholesterol in HDL [Mass/Vol] 36 mg/dL Critically low 40-60 [facility] Comment on above: Performed By: #### L IPID, T4, TSH, FT3, CMP #### [facility] [address] [address] [address] Maggy Irving Cholesterol in LDL [Mass/Vol] 114.4 mg/dL Normal [facility] Comment on above: Performed By: #### L IPID, T4, TSH, FT3, CMP #### [facility] [address] [address] [address] Maggy Irving Cholesterol.total/Ch olesterol in HDL [Mass ratio] 4.8 {ratio} Normal [facility] Comment on above: Performed By: #### L IPID, T4, TSH, FT3, CMP #### [facility] [address] [place] [address] Dr. Maggy Irving HDL NORMAL > or = 60 mg/dl - LO W CARDIOVASCULAR RISK <40 mg/dl - HIGH CARDIOVASCULAR RISK Normal [facility] Comment on above: Performed By: #### L IPID, T4, TSH, FT3, CMP #### [facility] [address] [address] [address] Maggy Irving LDL CALC NORMAL SEE BELOW Normal [facility] Comment on above: Result Comment: <100 mg/dl OPTIMAL 100 - 129 mg/dl NEAR OR ABOVE OPTIMAL 130 - 159 mg/dl BORDERLINE HIGH 160 - 189 mg/dl HIGH >190 mg/dl VERY HIGH Performed By: #### L IPID, T4, TSH, FT3, CMP #### [facility] [address] [address] [address] Maggy Irving Triglyceride [Mass/Vol] 118 mg/dL Normal <=150 [facility] Comment on above: Performed By: #### L IPID, T4, TSH, FT3, CMP #### [facility] [address] [address] [address] Maggy Irving VLDL CALC 23.6 mg/dL Normal [facility] Comment on above: Performed By: #### L IPID, T4, TSH, FT3, CMP #### [facility] [address] [place] [address] Dr. Maggy Irving OCC BLD IMMUNO SCREENon 03-20 OCCULT BLOOD Negative Normal NEGATIVE [facility] Comment on above: Performed By: #### O BSCRN #### [facility] [address] [place] [address] Dr. Maggy Irving PROF 14(COMP METB)on 022 Albumin [Mass/Vol] 3.6 g/dL Normal 3.4-5.0 [facility] Comment on above: Performed By: #### L IPID, T4, TSH, FT3, CMP #### [facility] [address] [place] [address] Dr. Maggy Irving Albumin/Globulin [Mass ratio] 1.1 {ratio} Normal [facility] Comment on above: Performed By: #### L IPID, T4, TSH, FT3, CMP #### [facility] [address] [place] [address] Dr. Maggy Irving ALP [Catalytic activity/Vol] 47 U/L Normal 46-116 [facility] Comment on above: Performed By: #### L IPID, T4, TSH, FT3, CMP #### [facility] [address] [place] [address] Dr. Maggy Irving ALT [Catalytic activity/Vol] 31 U/L Normal 16-63 [facility] Comment on above: Performed By: #### L IPID, T4, TSH, FT3, CMP #### [facility] [address] [place] [address] Dr. Maggy Irving Anion gap [Moles/Vol] 10.2 mmol/L Normal [facility] Comment on above: Performed By: #### L IPID, T4, TSH, FT3, CMP #### [facility] [address] [place] [address] Dr. Maggy Irving AST [Catalytic activity/Vol] 17 U/L Normal 15-37 [facility] Comment on above: Performed By: #### L IPID, T4, TSH, FT3, CMP #### [facility] [address] [place] [address] Dr. Maggy Irving Bilirubin [Mass/Vol] 0.6 mg/dL Normal 0.2-1.0 [facility] Comment on above: Performed By: #### L IPID, T4, TSH, FT3, CMP #### [facility] [address] [place] [address] Dr. Maggy Irving Calcium [Mass/Vol] 8.1 mg/dL Critically low 8.5-10.1 [facility] Comment on above: Performed By: #### L IPID, T4, TSH, FT3, CMP #### [facility] [address] [place] [address] Dr. Maggy Irving Chloride [Moles/Vol] 105 mmol/L Normal 98-107 [facility] Comment on above: Performed By: #### L IPID, T4, TSH, FT3, CMP #### [facility] [address] [place] [address] Dr. Maggy Irving CO2 [Moles/Vol] 29.6 mmol/L Normal 21.0-32.0 [facility] Comment on above: Performed By: #### L IPID, T4, TSH, FT3, CMP #### [facility] [address] [place] [address] Dr. Maggy Irving Creatinine [Mass/Vol] 0.89 mg/dL Normal 0.70-1.30 [facility] Comment on above: Performed By: #### L IPID, T4, TSH, FT3, CMP #### [facility] [address] [place] [address] Dr. Maggy Irving EGFR-AF SERBIAN >60 Normal >=60 [facility] Comment on above: Performed By: #### L IPID, T4, TSH, FT3, CMP #### [facility] [address] [place] [address] Dr. Maggy Irving EGFR-NON AF SERBIAN >60 Normal >=60 [facility] Comment on above: Performed By: #### L IPID, T4, TSH, FT3, CMP #### [facility] [address] [address] [address] Maggy Irving Globulin (S) [Mass/Vol] 3.2 g/dL Normal [facility] Comment on above: Performed By: #### L IPID, T4, TSH, FT3, CMP #### [facility] [address] [place] [address] Dr. Maggy Irving Glucose [Mass/Vol] 110 mg/dL Critically high 74-106 [facility] Comment on above: Performed By: #### L IPID, T4, TSH, FT3, CMP #### [facility] [address] [place] [address] Dr. Maggy Irving Potassium [Moles/Vol] 3.8 mmol/L Normal 3.5-5.1 [facility] Comment on above: Performed By: #### L IPID, T4, TSH, FT3, CMP #### [facility] [address] [place] [address] Dr. Maggy Irving Protein [Mass/Vol] 6.8 g/dL Normal 6.4-8.2 [facility] Comment on above: Performed By: #### L IPID, T4, TSH, FT3, CMP #### [facility] [address] [place] [address] Dr. Maggy Irving Sodium [Moles/Vol] 141 mmol/L Normal 136-145 [facility] Comment on above: Performed By: #### L IPID, T4, TSH, FT3, CMP #### [facility] [address] [place] [address] Dr. Maggy Irving Urea nitrogen [Mass/Vol] 17.0 mg/dL Normal 7.0-18.0 [facility] Comment on above: Performed By: #### L IPID, T4, TSH, FT3, CMP #### [facility] [address] [place] [address] Dr. Maggy Irving Urea nitrogen/Creatinine [Mass ratio] 19.1 mg/mg Normal [facility] Comment on above: Performed By: #### L IPID, T4, TSH, FT3, CMP #### [facility] [address] [place], [place] [id number] Dr. Maggy Irving T4on 04-09-2022 T4 [Mass/Vol] 7.90 ug/dL Normal 4.50-12.10 [facility] Comment on above: Performed By: #### L IPID, T4, TSH, FT3, CMP #### [facility] [address] [address] [address] Maggy Irving TSHon 04-09-2022 TSH 4.949 uIU/mL Critically high 0.358-3.740 [facility] Comment on above: Performed By: #### L IPID, T4, TSH, FT3, CMP #### [facility] [address] [address] [address] Maggy Irving Vital Signs Date Time Vital Sign Value Performing Clinician Faci lity 04-06-2024 09:43-0400 Body height 177.8 cm [facility] 04-06-2024 09:43-0400 Body mass index (BMI) [Ratio] 34.4 kg/m2 [facility] 04-06-2024 09:43-0400 Body temperature 98.3 [degF] [facility] 04-06-2024 09:43-0400 Body weight 109.08 kg [facility] 04-06-2024 09:43-0400 Diastolic blood pressure 78 mm[Hg] [facility] 04-06-2024 09:43-0400 Heart rate 87 /min [facility] 04-06-2024 09:43-0400 Respiratory rate 18 /min [facility] 04-06-2024 09:43-0400 SaO2% (BldA) [Mass fraction] 96 % [facility] 04-06-2024 09:43-0400 Systolic blood pressure 146 mm[Hg] [facility] Encounters Encounter Date Encounter Type Care Provider Facility Start: 04-27-2024 End: 04-27-2024 ambulatory Marcella Gross [facility] Work Phone: Start: 04-27-2024 End: 04-27-2024 Departed Referred MD Marcella Gross Work Phone: [facility] Start: 04-06-2024 End: 04-06-2024 ambulatory [facility] Work Phone: Start: 04-06-2024 End: 04-06-2024 Patient encounter procedure [facility] Work Phone: Start: 02-10-2023 End: 02-11-2023 ambulatory IVELISSE ORNELAS Facility:[facility] Start: 02-07-2023 End: 02-07-2023 ambulatory IVELISSE ORNELAS Facility:[facility] Start: 02-06-2023 Encounter for preprocedural laboratory examination IVELISSE ORNELAS [facility] Start: 01-31-2023 End: 02-01-[address] [...] L IPID, T4, TSH, FT3, CMP #### [facility] [address] [place] [address] Dr. Maggy Irving Payers Date Payer Category Payer Self-pay 1957 Medicare [id number] 1957 Unknown [id number] 1950 Unknown [id number] 2.16.84 [id number] 1952 Unknown [id number] 2.16.84 [id number] 1952 Unknown [id number] 2.16.84 [id number] 1952 Unknown [id number] 2.16.84 [id number] 1952 Unknown [id number] 2.16.84 [id number] 1952 Unknown [id number] 2.16.84 [id number] 1952 Unknown [id number] 2.16.84 [id number] 1952 Unknown [id number] 2.16.84 [id number] 1952 Unknown [id number] 2.16.84 [id number] 1952 Unknown [id number] 2.16.84 [id number] 1952 Unknown [id number] 2.16.84 [id number] Medicare Medicare [id number] Unknown [id number] 2.16.8 [id number] Social History Date Type Detail Facility Tobacco smoking stat [facility] Unknown if ever smoked [facility] Work Phone: Start: 1950 Sex Assigned At Male [facility] Clinical Note 02-07-2023 Note Date [...] authenticated by: OLVIN KHANNA Date: 2023-02-07 09:41 [facility] Evaluation note Note Date & Type Note Facility Evaluation note Diagnosis Onset Date Bacterial conjunctivitis of right eye acute [facility] Work Phone: Summary Purpose Family [...] content) DATE CREATED AUTHOR 02/25/2023 [facility] DATE CREATED AUTHOR AUTHOR'S ORGANIZ ATION 05/02/2024 [facility] Care Teams (unrecognized sec [...] BE BASED ON THE PRIMARY CLINICAL RECORDS. [facility] [email or web address] [facility]. provides no warranty or guarantee of the accuracy or completeness of information in this document.
== END 2024-10-24 09:45 | disposition home or self-care (01) ==
LOC: WC 09:44
PROVIDERS: PCP Family Medicine; Visit Provider Physician Assistant
DX: L97.422 Non-pressure chronic ulcer of left heel and midfoot with fat layer exposed (principal)
CPT/HCPCS: 11043

== ENCOUNTER 2024-11-07 09:27 | Outpatient (OUT) | payer MEDICARE, OTHER, SELFPAY ==
--- OUTSIDE RECORDS SUMMARY | 2024-11-07 09:49 | XMS_ITS | CCD ---
Author Organization [facility] Care Team Providers Care Byproducts Maker Name Role Phone CHEIKH ., DR NARANJO [...] 04-06-2024 Episodic Other aftercare (1 source) Other intermediate (current) drug therapy; Translations: [OTH DETENTION CURRENT DRUG THERAPY] Onset: 02-16-2023 Episodic Other [...] [id number] Received: 04/30/24 Status: CASS Req Num: [id number] Spec Type: Impression Subm Dr: Marcella Gross MD Tissues: PATHPER Procedures: PATHREVIEW Age/ Patient Sex Location Account Attending Physician RustySilvino Joel 74/M [place] [id number] Marcella Gross MD SPEC NUM: [id number] RECD: 04/30/24 STATUS: CASS REQ NUM: [id number] KAREN: 04/27/[address]: Marcella Gross MD ENTERED: 04/30/[address] [facility] [address]: SPEC TYPE: Impression DEPT: ALEXSANDRA Cervantes ENTERED BY: [id number] RECV BY: [id number] ORDERED: PATHREVIEW ORDERED: PATHREVIEW Pathologist Review Abnormal [...] shifted granulocytes, or granulocytic dysplasia observed CPT: 01855 -------- -------- Specimen: [id number] Received: 04/30/24 Status: CASS Moore Num: [id number] Spec Type: Impression Subm Dr: Marcella Gross MD Tissues: PATHPER Procedures: PATHREVIEW -------- Patient: iSlvino Ojeda Joel [id number] (Continued) -------- Signed (signature on file) ChinAlexys Irving MD 04/30/241945 Normal [facility] CULTURE OTHERon 02-11-2023 CULTURE [...] hoxazole <=10 S F Normal [facility] Comment on above: Performed By: #### L IPID, T4, TSH, FT3, CMP #### [facility] [address] [address] [address] Maggy Irving FUNGAL CULTUREon 02-09-2023 Fungus Stain Final report Normal [facility] Comment on above: Performed By: #### L IPID, T4, TSH, FT3, CMP #### [facility] [address] [address] [address] Maggy Irving Result 1 Comment Normal [facility] Comment on above: Result Comment: SUDHIR/ Calcofluor preparation: no fungus observed. Performed By: #### L IPID, T4, TSH, FT3, CMP #### [facility] [address] [address] [address] Maggy Irving ACID FAST SMEAR AND CXon Acid Fast Smear Negative Normal [facility] Comment on above: Performed By: #### A FB #### [facility] [address] [place] [address] Dr. Maggy Irving [employer] Specimen Processing Tissue Grinding [facility] Comment on above: Performed By: #### A FB #### [facility] [address] [place] [address] Dr. Maggy Irving CULTURE ANAEROBICon 02-08-20 CULTURE ANAEROBIC Isolate 1 Finegoldia magna Light growth of Normal [facility] Comment on above: Result Comment: EVID ENCE BASED PRACTICE BY [facility] HAS DEMONSTRATED THAT FINEGOLDIA SPECIES ARE ROUTINELY SUSCEPTIBLE TO PIPERACILLIN-TAZOBACTAM, CEFOXITIN, ERTAPENEM, IMIPENEM METRONIDAZOLE AND VARIABLY RESISTANT TO CLINDAMYCIN. Performed By: #### L IPID, T4, TSH, FT3, CMP #### [facility] [address] [place] [address] Dr. Maggy Irving GRAM STAINon 02-07-2023 COMMENTS NO ORGANISMS OBSERVED [facility] Comment on above: Performed By: #### G STAIN #### [facility] [address] [place] [address] Dr. Maggy Irving DIPHTHEROIDS Normal [facility] Comment on above: Performed By: #### G STAIN #### [facility] [address] [place] [address] Dr. Maggy Irving EPITHELIALS Normal [facility] Comment on above: Performed By: #### G STAIN #### [facility] [address] [address] [address] Maggy Irving FUNGAL ELEMENTS Normal [facility] Comment on above: Performed By: #### G STAIN #### [facility] [address] [address] [address] Maggy Irving GRAM NEG BACILLI Normal [facility] Comment on above: Performed By: #### G STAIN #### [facility] [address] [address] [address] Maggy MENDOZA NEG DIPPLOCOCCI Normal [facility] Comment on above: Performed By: #### G STAIN #### [facility] [address] [place] [address] Dr. Maggy Irving GRAM POS BACILLI [facility] Comment on above: Performed By: #### G STAIN #### [facility] [address] [place] [address] Dr. Maggy Irving GRAM POSITIVE COCCI Normal [facility] Comment on above: Performed By: #### G STAIN #### [facility] [address] [address] [address] Maggy Irving GRAM STAIN SOURCE 5th Metatarsal Bone [facility] Comment on above: Performed By: #### G STAIN #### [facility] [address] [place] [address] Dr. Maggy Irving GS_DIPTH [facility] Comment on above: Performed By: #### G STAIN #### [facility] [address] [place] [address] Dr. Maggy Irving WBC RARE Normal [facility] Comment on above: Performed By: #### G STAIN #### [facility] [address] [place] [address] Dr. Maggy Irving POINT OF CARE GLUCOSEon 01-18 Glucose [Mass/Vol] 114 mg/dL Critically high 74-106 [facility] Comment on above: Performed By: #### P OCGLUC #### [facility] [address] [place] [address] Dr. Maggy Irving Glucose [Mass/Vol] 122 mg/dL Critically high 74-106 [facility] Comment on above: Performed By: #### P OCGLUC #### [facility] [address] [place] [address] Dr. Maggy Irving PROF CHEM 8 (BAS METB)on Anion gap [Moles/Vol] 12.0 mmol/L Normal [facility] Comment on above: Performed By: #### L IPID, T4, TSH, FT3, CMP #### [facility] [address] [address] [address] Maggy Irving Calcium [Mass/Vol] 8.7 mg/dL Normal 8.5-10.1 [facility] Comment on above: Performed By: #### L IPID, T4, TSH, FT3, CMP #### [facility] [address] [place] [address] Dr. Maggy Irving Chloride [Moles/Vol] 104 mmol/L Normal 98-107 [facility] Comment on above: Performed By: #### L IPID, T4, TSH, FT3, CMP #### [facility] [address] [address] [address] Maggy Irving CO2 [Moles/Vol] 28.1 mmol/L Normal 21.0-32.0 [facility] Comment on above: Performed By: #### L IPID, T4, TSH, FT3, CMP #### [facility] [address] [place] [address] Dr. Maggy Irving Creatinine [Mass/Vol] 0.80 mg/dL Normal 0.70-1.30 [facility] Comment on above: Performed By: #### L IPID, T4, TSH, FT3, CMP #### [facility] [address] [place] [address] Dr. Maggy Irving EGFR-AF ARMENIAN >60 Normal >=60 [facility] Comment on above: Performed By: #### L IPID, T4, TSH, FT3, CMP #### [facility] [address] [place] [address] Dr. Maggy Irving EGFR-NON AF ARMENIAN >60 Normal >=60 [facility] Comment on above: Performed By: #### L IPID, T4, TSH, FT3, CMP #### [facility] [address] [place] [address] Dr. Maggy Irving Glucose [Mass/Vol] 129 mg/dL Critically high 74-106 [facility] Comment on above: Performed By: #### L IPID, T4, TSH, FT3, CMP #### [facility] [address] [place] [address] Dr. Maggy Irving Potassium [Moles/Vol] 4.1 mmol/L Normal 3.5-5.1 [facility] Comment on above: Performed By: #### L IPID, T4, TSH, FT3, CMP #### [facility] [address] [place] [address] Dr. Maggy Irving Sodium [Moles/Vol] 140 mmol/L Normal 136-145 [facility] Comment on above: Performed By: #### L IPID, T4, TSH, FT3, CMP #### [facility] [address] [place] [address] Dr. Maggy Irving Urea nitrogen [Mass/Vol] 20.0 mg/dL Critically high 7.0-18.0 [facility] Comment on above: Performed By: #### L IPID, T4, TSH, FT3, CMP #### [facility] [address] [place] [address] Dr. Maggy Irving Urea nitrogen/Creatinine [Mass ratio] 25.0 mg/mg Normal [facility] Comment on above: Performed By: #### L IPID, T4, TSH, FT3, CMP #### [facility] [address] [place] [address] Dr. Maggy Irving FREE T3on 01-07-2023 FREE T3 3.24 pg/mlL Normal 2.18-3.98 [facility] Comment on above: Performed By: #### L IPID, T4, TSH, FT3, CMP #### [facility] [address] [place] [address] Dr. Maggy Irving T4on 01-07-2023 T4 [Mass/Vol] 9.10 ug/dL Normal 4.50-12.10 [facility] Comment on above: Performed By: #### L IPID, T4, TSH, FT3, CMP #### [facility] [address] [place], [place] [address] Dr. Maggy Irving TSHon 01-07-2023 TSH 5.957 uIU/mL Critically high 0.358-3.740 [facility] Comment on above: Performed By: #### L IPID, T4, TSH, FT3, CMP #### [facility] [address] [place], [place] [address] Dr. Maggy Irving NM STRESS/REST MULTIon 01-03 NM STRESS/REST MULTI Patient: SILVINO OJEDA Exam Date: 01/03/2023 : 1950 Gender:M Ordering : DR MARCELLA GROSS . Admission #: [id number] Family : Order #: [id number] CLICK HERE TO VIEW EXAM RADIOLOGY REPORT [...] on 01/04/2023 at 07:45 Normal [facility] ECHOCARDIO M/2D COMPLETEon 0 12-21-2022 ECHOCARDIO M/2D COMPLETE Patient: SILVINO OJEDA Exam Date: 12/21/2022 : 1950 Gender:M Ordering : DR MARCELLA GROSS . Admission #: [id number] Family : Order #: [id number] CLICK HERE TO VIEW EXAM ECHOCARDIOGRAM REPORT [...] M.D. on 12/23/2022 at 18:05 Normal [facility] BNPon 12-07-2022 Natriuretic peptide B (Bld) [Mass/Vol] 37.0 pg/mL Normal <=900.0 [facility] Comment on above: Performed By: #### L IPID, T4, TSH, FT3, CMP #### [facility] [address] [place] [address] Dr. Maggy Irving CBC AUTO DIFFon 12-07-2022 BASO # 0.0 103/ul Normal 0.0-0.1 [facility] Comment on above: Performed By: #### L IPID, T4, TSH, FT3, CMP #### [facility] [address] [place] [address] Dr. Maggy Irving Basophils/100 WBC (Bld) 0.2 % Normal 0.2-2.0 [facility] Comment on above: Performed By: #### L IPID, T4, TSH, FT3, CMP #### [facility] [address] [place] [address] Dr. Maggy Irving EO # 0.2 103/ul Normal 0.0-0.7 [facility] Comment on above: Performed By: #### L IPID, T4, TSH, FT3, CMP #### [facility] [address] [place] [address] Dr. Maggy Irving Eosinophils/100 WBC (Bld) 3.7 % Normal 0.9-7.0 [facility] Comment on above: Performed By: #### L IPID, T4, TSH, FT3, CMP #### [facility] [address] [place] [address] Dr. Maggy Irving Erythrocyte distribution width (RBC) [Ratio] 11.9 % Normal 11.0-15.0 [facility] Comment on above: Performed By: #### L IPID, T4, TSH, FT3, CMP #### [facility] [address] [place] [address] Dr. Maggy Irving Hematocrit (Bld) [Volume fraction] 39.7 % Critically low 42.0-54.0 [facility] Comment on above: Performed By: #### L IPID, T4, TSH, FT3, CMP #### [facility] [address] [place] [address] Dr. Maggy Irving Hemoglobin (Bld) [Mass/Vol] 14.0 g/dL Normal 14.0-18.0 [facility] Comment on above: Performed By: #### L IPID, T4, TSH, FT3, CMP #### [facility] [address] [place] [address] Dr. Maggy Irving IG # 0.02 10e3/ul Normal 0.00-0.03 [facility] Comment on above: Performed By: #### L IPID, T4, TSH, FT3, CMP #### [facility] [address] [place] [address] Dr. Maggy Irving IG % 0.5 % Normal 0.0-0.5 [facility] Comment on above: Performed By: #### L IPID, T4, TSH, FT3, CMP #### [facility] [address] [place] [address] Dr. Maggy Irving LYMPH # 0.9 103/ul Critically low 1.2-3.8 [facility] Comment on above: Performed By: #### L IPID, T4, TSH, FT3, CMP #### [facility] [address] [place] [address] Dr. Maggy Irving Lymphocytes/100 WBC (Bld) 21.1 % Normal 20.5-60.0 [facility] Comment on above: Performed By: #### L IPID, T4, TSH, FT3, CMP #### [facility] [address] [place] [address] Dr. Maggy Irving MANUAL DIFF REQ NO Normal [facility] Comment on above: Performed By: #### L IPID, T4, TSH, FT3, CMP #### [facility] [address] [place] [address] Dr. Maggy Irving MCH (RBC) [Entitic mass] 30.5 pg Normal 25.9-34.0 [facility] Comment on above: Performed By: #### L IPID, T4, TSH, FT3, CMP #### [facility] [address] [place] [address] Dr. Maggy Irving MCHC (RBC) [Mass/Vol] 35.3 g/dL Critically high 29.9-35.2 [facility] Comment on above: Performed By: #### L IPID, T4, TSH, FT3, CMP #### [facility] [address] [place] [address] Dr. Maggy Irving MCV (RBC) [Entitic vol] 86.5 fL Normal 80.0-94.0 [facility] Comment on above: Performed By: #### L IPID, T4, TSH, FT3, CMP #### [facility] [address] [place] [address] Dr. Maggy Irving MONO # 0.4 103/ul Normal 0.3-0.8 [facility] Comment on above: Performed By: #### L IPID, T4, TSH, FT3, CMP #### [facility] [address] [place] [address] Dr. Maggy Irving Monocytes/100 WBC (Bld) 8.7 % Normal 1.7-12.0 [facility] Comment on above: Performed By: #### L IPID, T4, TSH, FT3, CMP #### [facility] [address] [place] [address] Dr. Maggy Irving NEUT # 2.9 103/ul Normal 1.4-6.5 [facility] Comment on above: Performed By: #### L IPID, T4, TSH, FT3, CMP #### [facility] [address] [place] [address] Dr. Maggy Irving Neutrophils/100 WBC (Bld) 65.8 % Normal 43.0-75.0 [facility] Comment on above: Performed By: #### L IPID, T4, TSH, FT3, CMP #### [facility] [address] [place] [address] Dr. Maggy Irving Platelet mean volume (Bld) [Entitic vol] 9.9 fL Normal 9.5-13.5 [facility] Comment on above: Performed By: #### L IPID, T4, TSH, FT3, CMP #### [facility] [address] [address] [address] Maggy Irving PLT 128 103/ul Critically low 150-450 [facility] Comment on above: Performed By: #### L IPID, T4, TSH, FT3, CMP #### [facility] [address] [address] [address] Maggy Irving RBC 4.59 106/ul Critically low 4.70-6.10 [facility] Comment on above: Performed By: #### L IPID, T4, TSH, FT3, CMP #### [facility] [address] [address] [address] Maggy Irving WBC 4.4 103/ul Normal 4.0-11.0 [facility] Comment on above: Performed By: #### L IPID, T4, TSH, FT3, CMP #### [facility] [address] [place] [address] Dr. Maggy Irving FREE THYROXINE INDEX T7on FTI 2.72 Normal 1.30-4.50 [facility] Comment on above: Performed By: #### L IPID, T4, TSH, FT3, CMP #### [facility] [address] [place] [address] Dr. Maggy Irving T3U 34.0 % Normal 33.0-40.0 [facility] Comment on above: Performed By: #### L IPID, T4, TSH, FT3, CMP #### [facility] [address] [place] [address] Dr. Maggy Irving T4 [Mass/Vol] 8.00 ug/dL Normal 4.50-12.10 [facility] Comment on above: Performed By: #### L IPID, T4, TSH, FT3, CMP #### [facility] [address] [place] [address] Dr. Maggy Irving IRONon 12-07-2022 Iron [Mass/Vol] 134.0 ug/dL Normal 65.0-175.0 [facility] Comment on above: Performed By: #### L IPID, T4, TSH, FT3, CMP #### [facility] [address] [place] [address] Dr. Maggy Irving LIPID PROFILEon 12-07-2022 CHOL-HDL RATIO NORM SEE BELOW Normal [facility] Comment on above: Result Comment: 3.3 - 4.4 LOW RISK 4.4 - 7.1 AVERAGE RISK 7.1 - 11.0 MODERATE RISK >11.0 HIGH RISK Performed By: #### L IPID, T4, TSH, FT3, CMP #### [facility] [address] [place] [address] Dr. Maggy Irving Cholesterol [Mass/Vol] 180 mg/dL Normal <=200 [facility] Comment on above: Performed By: #### L IPID, T4, TSH, FT3, CMP #### [facility] [address] [place] [address] Dr. Maggy Irving Cholesterol in HDL [Mass/Vol] 37 mg/dL Critically low 40-60 [facility] Comment on above: Performed By: #### L IPID, T4, TSH, FT3, CMP #### [facility] [address] [place] [address] Dr. Maggy Irving Cholesterol in LDL [Mass/Vol] 95.2 mg/dL Normal [facility] Comment on above: Performed By: #### L IPID, T4, TSH, FT3, CMP #### [facility] [address] [place] [address] Dr. Maggy Irving Cholesterol.total/Ch olesterol in HDL [Mass ratio] 4.9 {ratio} Normal [facility] Comment on above: Performed By: #### L IPID, T4, TSH, FT3, CMP #### [facility] [address] [place] [address] Dr. Maggy Irving HDL NORMAL > or = 60 mg/dl - LO W CARDIOVASCULAR RISK <40 mg/dl - HIGH CARDIOVASCULAR RISK Normal [facility] Comment on above: Performed By: #### L IPID, T4, TSH, FT3, CMP #### [facility] [address] [place] [address] Dr. Maggy Irving LDL CALC NORMAL SEE BELOW Normal [facility] Comment on above: Result Comment: <100 mg/dl OPTIMAL 100 - 129 mg/dl NEAR OR ABOVE OPTIMAL 130 - 159 mg/dl BORDERLINE HIGH 160 - 189 mg/dl HIGH >190 mg/dl VERY HIGH Performed By: #### L IPID, T4, TSH, FT3, CMP #### [facility] [address] [address] [address] Maggy Irving Triglyceride [Mass/Vol] 239 mg/dL Critically high <=150 [facility] Comment on above: Performed By: #### L IPID, T4, TSH, FT3, CMP #### [facility] [address] [place] [address] Dr. Maggy Irving VLDL CALC 47.8 mg/dL Normal [facility] Comment on above: Performed By: #### L IPID, T4, TSH, FT3, CMP #### [facility] [address] [place] [address] Dr. Maggy Irving PROF 14(COMP METB)on 023 Albumin [Mass/Vol] 3.8 g/dL Normal 3.4-5.0 [facility] Comment on above: Performed By: #### L IPID, T4, TSH, FT3, CMP #### [facility] [address] [place] [address] Dr. Maggy Irving Albumin/Globulin [Mass ratio] 1.1 {ratio} Normal [facility] Comment on above: Performed By: #### L IPID, T4, TSH, FT3, CMP #### [facility] [address] [place] [address] Dr. Maggy Irving ALP [Catalytic activity/Vol] 53 U/L Normal 46-116 [facility] Comment on above: Performed By: #### L IPID, T4, TSH, FT3, CMP #### [facility] [address] [place] [address] Dr. Maggy Irving ALT [Catalytic activity/Vol] 43 U/L Normal 16-63 [facility] Comment on above: Performed By: #### L IPID, T4, TSH, FT3, CMP #### [facility] [address] [place] [address] Dr. Maggy Irving Anion gap [Moles/Vol] 12.2 mmol/L Normal [facility] Comment on above: Performed By: #### L IPID, T4, TSH, FT3, CMP #### [facility] [address] [place] [address] Dr. Maggy Irving AST [Catalytic activity/Vol] 22 U/L Normal 15-37 [facility] Comment on above: Performed By: #### L IPID, T4, TSH, FT3, CMP #### [facility] [address] [place] [address] Dr. Maggy Irving Bilirubin [Mass/Vol] 0.6 mg/dL Normal 0.2-1.0 [facility] Comment on above: Performed By: #### L IPID, T4, TSH, FT3, CMP #### [facility] [address] [place] [address] Dr. Maggy Irving Calcium [Mass/Vol] 8.9 mg/dL Normal 8.5-10.1 [facility] Comment on above: Performed By: #### L IPID, T4, TSH, FT3, CMP #### [facility] [address] [place] [address] Dr. Maggy Irving Chloride [Moles/Vol] 104 mmol/L Normal 98-107 [facility] Comment on above: Performed By: #### L IPID, T4, TSH, FT3, CMP #### [facility] [address] [place] [address] Dr. Maggy Irving CO2 [Moles/Vol] 28.8 mmol/L Normal 21.0-32.0 [facility] Comment on above: Performed By: #### L IPID, T4, TSH, FT3, CMP #### [facility] [address] [place] [address] Dr. Maggy Irving Creatinine [Mass/Vol] 0.83 mg/dL Normal 0.70-1.30 [facility] Comment on above: Performed By: #### L IPID, T4, TSH, FT3, CMP #### [facility] [address] [address] [address] Maggy Irving EGFR-AF ARMENIAN >60 Normal >=60 [facility] Comment on above: Performed By: #### L IPID, T4, TSH, FT3, CMP #### [facility] [address] [place] [address] Dr. Maggy Irving EGFR-NON AF ARMENIAN >60 Normal >=60 [facility] Comment on above: Performed By: #### L IPID, T4, TSH, FT3, CMP #### [facility] [address] [place] [address] Dr. Maggy Irving Globulin (S) [Mass/Vol] 3.4 g/dL Normal [facility] Comment on above: Performed By: #### L IPID, T4, TSH, FT3, CMP #### [facility] [address] [place] [address] Dr. Maggy Irving Glucose [Mass/Vol] 116 mg/dL Critically high 74-106 [facility] Comment on above: Performed By: #### L IPID, T4, TSH, FT3, CMP #### [facility] [address] [place] [address] Dr. Maggy Irving Potassium [Moles/Vol] 4.0 mmol/L Normal 3.5-5.1 [facility] Comment on above: Performed By: #### L IPID, T4, TSH, FT3, CMP #### [facility] [address] [address] [address] Maggy Irving Protein [Mass/Vol] 7.2 g/dL Normal 6.4-8.2 [facility] Comment on above: Performed By: #### L IPID, T4, TSH, FT3, CMP #### [facility] [address] [place] [address] Dr. Maggy Irving Sodium [Moles/Vol] 141 mmol/L Normal 136-145 [facility] Comment on above: Performed By: #### L IPID, T4, TSH, FT3, CMP #### [facility] [address] [place] [address] Dr. Maggy Irving Urea nitrogen [Mass/Vol] 17.0 mg/dL Normal 7.0-18.0 [facility] Comment on above: Performed By: #### L IPID, T4, TSH, FT3, CMP #### [facility] [address] [place] [address] Dr. Maggy Irving Urea nitrogen/Creatinine [Mass ratio] 20.5 mg/mg Normal [facility] Comment on above: Performed By: #### L IPID, T4, TSH, FT3, CMP #### [facility] [address] [place] [address] Dr. Maggy Irving TSHon 12-07-2022 TSH 5.531 uIU/mL Critically high 0.358-3.740 [facility] Comment on above: Performed By: #### L IPID, T4, TSH, FT3, CMP #### [facility] [address] [place] [address] Dr. Maggy Irving TESTOSTERONE, TOTALon 2021 Testosterone [Mass/Vol] 390 ng/dL Normal 264-916 [facility] Comment on above: Result Comment: Adul t male reference interval is based on a population of healthy nonobese males (BMI <30) between 19 and 39 years old. Reynaldo et.al. JCEM 2017,102;[id number]. PMID: [id number]. Performed By: #### L IPID, T4, TSH, FT3, CMP #### [facility] [address] [place] [address] Dr. Maggy Irving CBC AUTO DIFFon 04-09-2022 BASO # 0.0 103/ul Normal 0.0-0.1 [facility] Comment on above: Performed By: #### L IPID, T4, TSH, FT3, CMP #### [facility] [address] [place] [address] Dr. Maggy Irving Basophils/100 WBC (Bld) 0.2 % Normal 0.2-2.0 [facility] Comment on above: Performed By: #### L IPID, T4, TSH, FT3, CMP #### [facility] [address] [place] [address] Dr. Magyg Irving EO # 0.2 103/ul Normal 0.0-0.7 [facility] Comment on above: Performed By: #### L IPID, T4, TSH, FT3, CMP #### [facility] [address] [place] [address] Dr. Maggy Irving Eosinophils/100 WBC (Bld) 3.1 % Normal 0.9-7.0 [facility] Comment on above: Performed By: #### L IPID, T4, TSH, FT3, CMP #### [facility] [address] [place] [address] Dr. Maggy Irving Erythrocyte distribution width (RBC) [Ratio] 12.3 % Normal 11.0-15.0 [facility] Comment on above: Performed By: #### L IPID, T4, TSH, FT3, CMP #### [facility] [address] [place] [address] Dr. Maggy Irving Hematocrit (Bld) [Volume fraction] 41.6 % Critically low 42.0-54.0 [facility] Comment on above: Performed By: #### L IPID, T4, TSH, FT3, CMP #### [facility] [address] [place] [address] Dr. Maggy Irving Hemoglobin (Bld) [Mass/Vol] 14.6 g/dL Normal 14.0-18.0 [facility] Comment on above: Performed By: #### L IPID, T4, TSH, FT3, CMP #### [facility] [address] [place] [address] Dr. Maggy Irving IG # 0.02 10e3/ul Normal 0.00-0.03 [facility] Comment on above: Performed By: #### L IPID, T4, TSH, FT3, CMP #### [facility] [address] [place] [address] Dr. Maggy Irving IG % 0.4 % Normal 0.0-0.5 [facility] Comment on above: Performed By: #### L IPID, T4, TSH, FT3, CMP #### [facility] [address] [place] [address] Dr. Maggy Irving LYMPH # 0.9 103/ul Critically low 1.2-3.8 [facility] Comment on above: Performed By: #### L IPID, T4, TSH, FT3, CMP #### [facility] [address] [place] [address] Dr. Maggy Irving Lymphocytes/100 WBC (Bld) 17.9 % Critically low 20.5-60.0 [facility] Comment on above: Performed By: #### L IPID, T4, TSH, FT3, CMP #### [facility] [address] [place] [address] Dr. Maggy Irving MANUAL DIFF REQ NO Normal [facility] Comment on above: Performed By: #### L IPID, T4, TSH, FT3, CMP #### [facility] [address] [place] [address] Dr. Maggy Irving MCH (RBC) [Entitic mass] 31.1 pg Normal 25.9-34.0 [facility] Comment on above: Performed By: #### L IPID, T4, TSH, FT3, CMP #### [facility] [address] [place] [address] Dr. Maggy Irving MCHC (RBC) [Mass/Vol] 35.1 g/dL Normal 29.9-35.2 [facility] Comment on above: Performed By: #### L IPID, T4, TSH, FT3, CMP #### [facility] [address] [place] [address] Dr. Maggy Irving MCV (RBC) [Entitic vol] 88.5 fL Normal 80.0-94.0 [facility] Comment on above: Performed By: #### L IPID, T4, TSH, FT3, CMP #### [facility] [address] [place] [address] Dr. Maggy Irving MONO # 0.4 103/ul Normal 0.3-0.8 [facility] Comment on above: Performed By: #### L IPID, T4, TSH, FT3, CMP #### [facility] [address] [place] [address] Dr. Maggy Irving Monocytes/100 WBC (Bld) 8.7 % Normal 1.7-12.0 [facility] Comment on above: Performed By: #### L IPID, T4, TSH, FT3, CMP #### [facility] [address] [place] [address] Dr. Maggy Irving NEUT # 3.4 103/ul Normal 1.4-6.5 [facility] Comment on above: Performed By: #### L IPID, T4, TSH, FT3, CMP #### [facility] [address] [place] [address] Dr. Maggy Irving Neutrophils/100 WBC (Bld) 69.7 % Normal 43.0-75.0 [facility] Comment on above: Performed By: #### L IPID, T4, TSH, FT3, CMP #### [facility] [address] [place] [address] Dr. Maggy Irving Platelet mean volume (Bld) [Entitic vol] 9.9 fL Normal 9.5-13.5 [facility] Comment on above: Performed By: #### L IPID, T4, TSH, FT3, CMP #### [facility] [address] [place] [address] Dr. Maggy Irving PLT 121 103/ul Critically low 150-450 [facility] Comment on above: Performed By: #### L IPID, T4, TSH, FT3, CMP #### [facility] [address] [place] [address] Dr. Maggy Irving RBC 4.70 106/ul Normal 4.70-6.10 [facility] Comment on above: Performed By: #### L IPID, T4, TSH, FT3, CMP #### [facility] [address] [place] [address] Dr. Maggy Irving WBC 4.8 103/ul Normal 4.0-11.0 [facility] Comment on above: Performed By: #### L IPID, T4, TSH, FT3, CMP #### [facility] [address] [address] [address] Maggy Irving FREE T3on 04-09-2022 FREE T3 3.15 pg/mlL Normal 2.18-3.98 [facility] Comment on above: Performed By: #### L IPID, T4, TSH, FT3, CMP #### [facility] [address] [address] [address] Maggy Irving GLYCOHEMOGLOBIN A1Con 2021 ADA RECOMMENDATION SEE BELOW Normal [facility] Comment on above: Result Comment: ADA RECOMMENDED LIMIT 4.0 - 6.0 ADA THERAPEUTIC TARGET < 7.0 ACTION SUGGESTED > 7.0 Performed By: #### L IPID, T4, TSH, FT3, CMP #### [facility] [address] [place] [address] Dr. Maggy Irving Glucose [Mass/Vol] 123 mg/dL Normal [facility] Comment on above: Performed By: #### L IPID, T4, TSH, FT3, CMP #### [facility] [address] [place] [address] Dr. Maggy Irving HbA1c (Bld) [Mass fraction] 5.9 % Normal 4.5-6.2 [facility] Comment on above: Performed By: #### L IPID, T4, TSH, FT3, CMP #### [facility] [address] [place] [address] Dr. Maggy Irving LIPID PROFILEon 04-09-2022 CHOL-HDL RATIO NORM SEE BELOW Normal [facility] Comment on above: Result Comment: 3.3 - 4.4 LOW RISK 4.4 - 7.1 AVERAGE RISK 7.1 - 11.0 MODERATE RISK >11.0 HIGH RISK Performed By: #### L IPID, T4, TSH, FT3, CMP #### [facility] [address] [place] [address] Dr. Maggy Irving Cholesterol [Mass/Vol] 174 mg/dL Normal <=200 [facility] Comment on above: Performed By: #### L IPID, T4, TSH, FT3, CMP #### [facility] [address] [address] [address] Maggy Irving Cholesterol in HDL [Mass/Vol] 36 mg/dL Critically low 40-60 [facility] Comment on above: Performed By: #### L IPID, T4, TSH, FT3, CMP #### [facility] [address] [address] [address] Maggy Irving Cholesterol in LDL [Mass/Vol] 114.4 mg/dL Normal [facility] Comment on above: Performed By: #### L IPID, T4, TSH, FT3, CMP #### [facility] [address] [address] [address] Maggy Irving Cholesterol.total/Ch olesterol in HDL [Mass ratio] 4.8 {ratio} Normal [facility] Comment on above: Performed By: #### L IPID, T4, TSH, FT3, CMP #### [facility] [address] [place] [address] Dr. Maggy Irving HDL NORMAL > or = 60 mg/dl - LO W CARDIOVASCULAR RISK <40 mg/dl - HIGH CARDIOVASCULAR RISK Normal [facility] Comment on above: Performed By: #### L IPID, T4, TSH, FT3, CMP #### [facility] [address] [address] [address] Maggy Irving LDL CALC NORMAL SEE BELOW Normal [facility] Comment on above: Result Comment: <100 mg/dl OPTIMAL 100 - 129 mg/dl NEAR OR ABOVE OPTIMAL 130 - 159 mg/dl BORDERLINE HIGH 160 - 189 mg/dl HIGH >190 mg/dl VERY HIGH Performed By: #### L IPID, T4, TSH, FT3, CMP #### [facility] [address] [address] [address] Maggy Irving Triglyceride [Mass/Vol] 118 mg/dL Normal <=150 [facility] Comment on above: Performed By: #### L IPID, T4, TSH, FT3, CMP #### [facility] [address] [address] [address] Maggy Irving VLDL CALC 23.6 mg/dL Normal [facility] Comment on above: Performed By: #### L IPID, T4, TSH, FT3, CMP #### [facility] [address] [place] [address] Dr. Maggy Irving OCC BLD IMMUNO SCREENon 03-20 OCCULT BLOOD Negative Normal NEGATIVE [facility] Comment on above: Performed By: #### O BSCRN #### [facility] [address] [place] [address] Dr. Maggy Irving PROF 14(COMP METB)on 022 Albumin [Mass/Vol] 3.6 g/dL Normal 3.4-5.0 [facility] Comment on above: Performed By: #### L IPID, T4, TSH, FT3, CMP #### [facility] [address] [place] [address] Dr. Maggy Irving Albumin/Globulin [Mass ratio] 1.1 {ratio} Normal [facility] Comment on above: Performed By: #### L IPID, T4, TSH, FT3, CMP #### [facility] [address] [place] [address] Dr. Maggy Irving ALP [Catalytic activity/Vol] 47 U/L Normal 46-116 [facility] Comment on above: Performed By: #### L IPID, T4, TSH, FT3, CMP #### [facility] [address] [place] [address] Dr. Maggy Irving ALT [Catalytic activity/Vol] 31 U/L Normal 16-63 [facility] Comment on above: Performed By: #### L IPID, T4, TSH, FT3, CMP #### [facility] [address] [place] [address] Dr. Maggy Irving Anion gap [Moles/Vol] 10.2 mmol/L Normal [facility] Comment on above: Performed By: #### L IPID, T4, TSH, FT3, CMP #### [facility] [address] [place] [address] Dr. Maggy Irving AST [Catalytic activity/Vol] 17 U/L Normal 15-37 [facility] Comment on above: Performed By: #### L IPID, T4, TSH, FT3, CMP #### [facility] [address] [place] [address] Dr. Maggy Irving Bilirubin [Mass/Vol] 0.6 mg/dL Normal 0.2-1.0 [facility] Comment on above: Performed By: #### L IPID, T4, TSH, FT3, CMP #### [facility] [address] [place] [address] Dr. Maggy Irving Calcium [Mass/Vol] 8.1 mg/dL Critically low 8.5-10.1 [facility] Comment on above: Performed By: #### L IPID, T4, TSH, FT3, CMP #### [facility] [address] [place] [address] Dr. Maggy Irving Chloride [Moles/Vol] 105 mmol/L Normal 98-107 [facility] Comment on above: Performed By: #### L IPID, T4, TSH, FT3, CMP #### [facility] [address] [place] [address] Dr. Maggy Irving CO2 [Moles/Vol] 29.6 mmol/L Normal 21.0-32.0 [facility] Comment on above: Performed By: #### L IPID, T4, TSH, FT3, CMP #### [facility] [address] [place] [address] Dr. Maggy Irving Creatinine [Mass/Vol] 0.89 mg/dL Normal 0.70-1.30 [facility] Comment on above: Performed By: #### L IPID, T4, TSH, FT3, CMP #### [facility] [address] [place] [address] Dr. Maggy Irving EGFR-AF ARMENIAN >60 Normal >=60 [facility] Comment on above: Performed By: #### L IPID, T4, TSH, FT3, CMP #### [facility] [address] [place] [address] Dr. Maggy Irving EGFR-NON AF ARMENIAN >60 Normal >=60 [facility] Comment on above: Performed By: #### L IPID, T4, TSH, FT3, CMP #### [facility] [address] [address] [address] Maggy Irving Globulin (S) [Mass/Vol] 3.2 g/dL Normal [facility] Comment on above: Performed By: #### L IPID, T4, TSH, FT3, CMP #### [facility] [address] [place] [address] Dr. Maggy Irving Glucose [Mass/Vol] 110 mg/dL Critically high 74-106 [facility] Comment on above: Performed By: #### L IPID, T4, TSH, FT3, CMP #### [facility] [address] [place] [address] Dr. Maggy Irving Potassium [Moles/Vol] 3.8 mmol/L Normal 3.5-5.1 [facility] Comment on above: Performed By: #### L IPID, T4, TSH, FT3, CMP #### [facility] [address] [place] [address] Dr. Maggy Irving Protein [Mass/Vol] 6.8 g/dL Normal 6.4-8.2 [facility] Comment on above: Performed By: #### L IPID, T4, TSH, FT3, CMP #### [facility] [address] [place] [address] Dr. Maggy Irving Sodium [Moles/Vol] 141 mmol/L Normal 136-145 [facility] Comment on above: Performed By: #### L IPID, T4, TSH, FT3, CMP #### [facility] [address] [place] [address] Dr. Maggy Irving Urea nitrogen [Mass/Vol] 17.0 mg/dL Normal 7.0-18.0 [facility] Comment on above: Performed By: #### L IPID, T4, TSH, FT3, CMP #### [facility] [address] [place] [address] Dr. Maggy Irving Urea nitrogen/Creatinine [Mass ratio] 19.1 mg/mg Normal [facility] Comment on above: Performed By: #### L IPID, T4, TSH, FT3, CMP #### [facility] [address] [place], [place] [id number] Dr. Maggy Irving T4on 04-09-2022 T4 [Mass/Vol] 7.90 ug/dL Normal 4.50-12.10 [facility] Comment on above: Performed By: #### L IPID, T4, TSH, FT3, CMP #### [facility] [address] [address] [address] Maggy Irving TSHon 04-09-2022 TSH 4.949 uIU/mL Critically high 0.358-3.740 [facility] Comment on above: Performed By: #### L IPID, T4, TSH, FT3, CMP #### [facility] [address] [address] [address] Maggy Irving Vital Signs Date Time Vital Sign Value Performing Clinician Faci lity 04-06-2024 09:43-0400 Body height 177.8 cm [facility] 04-06-2024 09:43-0400 Body mass index (BMI) [Ratio] 34.4 kg/m2 [facility] 04-06-2024 09:43-0400 Body temperature 98.3 [degF] [facility] 04-06-2024 09:43-0400 Body weight 109.08 kg [facility] 04-06-2024 09:43-0400 Diastolic blood pressure 78 mm[Hg] [facility] 04-06-2024 09:43-0400 Heart rate 87 /min [facility] 04-06-2024 09:43-0400 Respiratory rate 18 /min [facility] 04-06-2024 09:43-0400 SaO2% (BldA) [Mass fraction] 96 % [facility] 04-06-2024 09:43-0400 Systolic blood pressure 146 mm[Hg] [facility] Encounters Encounter Date Encounter Type Care Provider Facility Start: 04-27-2024 End: 04-27-2024 ambulatory Marcella Gross [facility] Work Phone: Start: 04-27-2024 End: 04-27-2024 Departed Referred MD Marcella Gross Work Phone: [facility] Start: 04-06-2024 End: 04-06-2024 ambulatory [facility] Work Phone: Start: 04-06-2024 End: 04-06-2024 Patient encounter procedure [facility] Work Phone: Start: 02-10-2023 End: 02-11-2023 ambulatory IVELISSE ORNELAS Facility:[facility] Start: 02-07-2023 End: 02-07-2023 ambulatory IVELISSE ORNELAS Facility:[facility] Start: 02-06-2023 Encounter for preprocedural laboratory examination IVELISSE ORNELAS [facility] Start: 01-31-2023 End: 02-01-[address] MARCELLA GROSS . Facility:[facility] Start: 01-31-2023 End: 02-01-2023 Encounter for preprocedural laboratory examination DR MARCELLA GROSS . Facility:[facility] Start: 01-25-2023 End: 01-26-[address] MARCELLA GROSS . Facility:[facility] Start: 01-07-2023 End: 01-08-[address] MRACELLA GROSS . Facility:[facility] Start: 01-03-2023 End: 01-04-2023 [...] L IPID, T4, TSH, FT3, CMP #### [facility] [address] [place] [address] Dr. Maggy Irving Payers Date Payer Category Payer Self-pay 1957 Medicare [id number] 1957 Unknown [id number] 1950 Unknown [id number] 2.16.84 [id number] 1950 Unknown [id number] 2.16.84 [id number] 1952 Unknown [id number] 2.16.84 [id number] 1952 Unknown [id number] 2.16.84 0.1.952698.3.579.2.593 1952 Unknown [id number] 2.16.84 0.1.220370.3.579.2.593 1952 Unknown [id number] 2.16.84 0.1.676664.3.579.2.593 1952 Unknown [id number] 2.16.84 0.1.342649.3.579.2.593 1952 Unknown [id number] 2.16.84 0.1.784220.3.579.2.593 1952 Unknown [id number] 2.16.84 0.1.354223.3.579.2.593 1952 Unknown [id number] 2.16.84 0.1.383309.3.579.2.593 1952 Unknown [id number] 2.16.84 [id number] Medicare Medicare [id number] Unknown [id number] 2.16.8 [id number] Social History Date Type Detail Facility Tobacco smoking stat [facility] Unknown if ever smoked [facility] Work Phone: Start: 1950 Sex Assigned At Male F [facility] Clinical Note 02-07-2023 Note Date & [...] OLVIN KHANNA Date: 2023-02-07 09:41 [facility] Evaluation note Note Date & Type Note Facility Evaluation note Diagnosis Onset Date Bacterial conjunctivitis of right eye acute [facility] Work Phone: Summary Purpose Family History [...] and content) DATE CREATED AUTHOR 02/25/2023 [facility] DATE CREATED AUTHOR AUTHOR'S ORGANIZ ATION 05/02/2024 [facility] Care Teams (unrecognized sec [...] BE BASED ON THE PRIMARY CLINICAL RECORDS. [facility] [employer] [facility] provides no warranty or guarantee of the accuracy or completeness of information in this document.
== END 2024-11-07 09:28 | disposition home or self-care (01) ==
LOC: WC 09:27
PROVIDERS: PCP Family Medicine; Visit Provider Physician Assistant
DX: L97.422 Non-pressure chronic ulcer of left heel and midfoot with fat layer exposed (principal)
CPT/HCPCS: 11042

== ENCOUNTER 2024-11-21 09:02 | Outpatient (OUT) | payer MEDICARE, OTHER, SELFPAY ==
--- OUTSIDE RECORDS SUMMARY | 2024-11-21 09:27 | XMS_ITS | CCD ---
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; Translations: [OTH [facility] CURRENT DRUG THERAPY] Onset: 02-16-2023 Episodic Other [...] [id number] Received: 04/30/24 Status: CASS Req Num: [id number] Spec Type: Impression Subm Dr: Marcella Gross MD Tissues: PATHPER Procedures: PATHREVIEW Age/ Patient Sex Location Account Attending Physician RustySilvino Joel 74/M [place] [id number] Marcella Gross MD SPEC NUM: [id number] RECD: 04/30/24 STATUS: CASS REQ NUM: [id number] KAREN: 04/27/[address]: Marcella Gross MD ENTERED: 04/30/[address] [facility] DR: SPEC TYPE: Impression DEPT: ALEXSANDRA Cervantes ENTERED BY: [id number] RECV BY: [id number] ORDERED: PATHREVIEW ORDERED: PATHREVIEW Pathologist Review Abnormal [...] shifted granulocytes, or granulocytic dysplasia observed CPT: 73738 -------- -------- Specimen: [id number] Received: 04/30/24 Status: CASS Moore Num: [id number] Spec Type: Impression Subm Dr: Marcella Gross MD Tissues: PATHPER Procedures: PATHREVIEW -------- Patient: Silvino Ojeda Joel [id number] (Continued) -------- Signed (signature on file) ChinAlexys Irving MD 04/30/241945 Normal [facility] CULTURE OTHERon 02-11-2023 [...] F Trimethoprim/Sulfamet hoxazole <=10 S F Normal [facility] Comment on above: Performed By: #### L IPID, T4, TSH, FT3, CMP #### [facility] [address] [address] [address] Maggy Irving FUNGAL CULTUREon 02-09-2023 Fungus Stain Final report Normal [facility] Comment on above: Performed By: #### L IPID, T4, TSH, FT3, CMP #### [facility] [address] [address] [address] Maggy Irving Result 1 Comment Normal [facility] Comment on above: Result Comment: SUDHIR/ Calcofluor preparation: no fungus observed. Performed By: #### L IPID, T4, TSH, FT3, CMP #### [facility] [address] [address] [address] Maggy Irving ACID FAST SMEAR AND CXon Acid Fast Smear Negative Normal [facility] Comment on above: Performed By: #### A FB #### [facility] [address] [place] [address] Dr. Maggy Irving [employer] Specimen Processing Tissue Grinding [facility] Comment on above: Performed By: #### A FB #### [facility] [address] [place] [address] Dr. Maggy Irving CULTURE ANAEROBICon 02-08-20 CULTURE ANAEROBIC Isolate 1 Finegoldia magna Light growth of Normal [facility] Comment on above: Result Comment: EVID ENCE BASED PRACTICE BY [facility] HAS DEMONSTRATED THAT FINEGOLDIA SPECIES ARE ROUTINELY SUSCEPTIBLE TO PIPERACILLIN-TAZOBACTAM, CEFOXITIN, ERTAPENEM, IMIPENEM METRONIDAZOLE AND VARIABLY RESISTANT TO CLINDAMYCIN. Performed By: #### L IPID, T4, TSH, FT3, CMP #### [facility] [address] [place] [address] Dr. Maggy Irving GRAM STAINon 02-07-2023 COMMENTS NO ORGANISMS OBSERVED [facility] Comment on above: Performed By: #### G STAIN #### [facility] [address] [place] [address] Dr. Maggy Irving DIPHTHEROIDS Normal [facility] Comment on above: Performed By: #### G STAIN #### [facility] [address] [place] [address] Dr. Maggy Irving EPITHELIALS Normal [facility] Comment on above: Performed By: #### G STAIN #### [facility] [address] [address] [address] Maggy Irving FUNGAL ELEMENTS Normal [facility] Comment on above: Performed By: #### G STAIN #### [facility] [address] [address] [address] Maggy Irving GRAM NEG BACILLI Normal [facility] Comment on above: Performed By: #### G STAIN #### [facility] [address] [address] [address] Maggy MENDOZA NEG DIPPLOCOCCI Normal [facility] Comment on above: Performed By: #### G STAIN #### [facility] [address] [place] [address] Dr. Maggy Irving GRAM POS BACILLI [facility] Comment on above: Performed By: #### G STAIN #### [facility] [address] [place] [address] Dr. Maggy Irving GRAM POSITIVE COCCI Normal [facility] Comment on above: Performed By: #### G STAIN #### [facility] [address] [address] [address] Maggy Irving GRAM STAIN SOURCE 5th Metatarsal Bone [facility] Comment on above: Performed By: #### G STAIN #### [facility] [address] [place] [address] Dr. Maggy Irving GS_DIPTH [facility] Comment on above: Performed By: #### G STAIN #### [facility] [address] [place] [address] Dr. Maggy Irving WBC RARE Normal [facility] Comment on above: Performed By: #### G STAIN #### [facility] [address] [place] [address] Dr. Maggy Irving POINT OF CARE GLUCOSEon 01-18 Glucose [Mass/Vol] 114 mg/dL Critically high 74-106 T [facility] [place] Comment on above: Performed By: #### P OCGLUC #### [facility] [address] [place] [address] Dr. Maggy Irving Glucose [Mass/Vol] 122 mg/dL Critically high 74-106 T [facility] [place] Comment on above: Performed By: #### P OCGLUC #### [facility] [address] [place] [address] Dr. Maggy Irving PROF CHEM 8 (BAS METB)on Anion gap [Moles/Vol] 12.0 mmol/L Normal [facility] Comment on above: Performed By: #### L IPID, T4, TSH, FT3, CMP #### [facility] [address] [address] [address] Maggy Irving Calcium [Mass/Vol] 8.7 mg/dL Normal 8.5-10.1 [facility] Comment on above: Performed By: #### L IPID, T4, TSH, FT3, CMP #### [facility] [address] [place] [address] Dr. Maggy Irving Chloride [Moles/Vol] 104 mmol/L Normal 98-107 [facility] Comment on above: Performed By: #### L IPID, T4, TSH, FT3, CMP #### [facility] [address] [address] [address] Maggy Irving CO2 [Moles/Vol] 28.1 mmol/L Normal 21.0-32.0 [facility] Comment on above: Performed By: #### L IPID, T4, TSH, FT3, CMP #### [facility] [address] [place] [address] Dr. Maggy Irving Creatinine [Mass/Vol] 0.80 mg/dL Normal 0.70-1.30 [facility] Comment on above: Performed By: #### L IPID, T4, TSH, FT3, CMP #### [facility] [address] [place] [address] Dr. Maggy Irving EGFR-AF ISRAELI >60 Normal >=60 [facility] Comment on above: Performed By: #### L IPID, T4, TSH, FT3, CMP #### [facility] [address] [place] [address] Dr. Maggy Irving EGFR-NON AF ISRAELI >60 Normal >=60 [facility] Comment on above: Performed By: #### L IPID, T4, TSH, FT3, CMP #### [facility] [address] [place] [address] Dr. Maggy Irving Glucose [Mass/Vol] 129 mg/dL Critically high 74-106 T [facility] [place] Comment on above: Performed By: #### L IPID, T4, TSH, FT3, CMP #### [facility] [address] [place] [address] Dr. Maggy Irving Potassium [Moles/Vol] 4.1 mmol/L Normal 3.5-5.1 [facility] Comment on above: Performed By: #### L IPID, T4, TSH, FT3, CMP #### [facility] [address] [place] [address] Dr. Maggy Irving Sodium [Moles/Vol] 140 mmol/L Normal 136-145 [facility] Comment on above: Performed By: #### L IPID, T4, TSH, FT3, CMP #### [facility] [address] [place] [address] Dr. Maggy Irving Urea nitrogen [Mass/Vol] 20.0 mg/dL Critically high 7.0-18.0 [facility] Comment on above: Performed By: #### L IPID, T4, TSH, FT3, CMP #### [facility] [address] [place] [address] Dr. Maggy Irving Urea nitrogen/Creatinine [Mass ratio] 25.0 mg/mg Normal [facility] Comment on above: Performed By: #### L IPID, T4, TSH, FT3, CMP #### [facility] [address] [place] [address] Dr. Maggy Irving FREE T3on 01-07-2023 FREE T3 3.24 pg/mlL Normal 2.18-3.98 [facility] Comment on above: Performed By: #### L IPID, T4, TSH, FT3, CMP #### [facility] [address] [place] [address] Dr. Maggy Irving T4on 01-07-2023 T4 [Mass/Vol] 9.10 ug/dL Normal 4.50-12.10 [facility] Comment on above: Performed By: #### L IPID, T4, TSH, FT3, CMP #### [facility] [address] [place], [place] [address] Dr. Maggy Irving TSHon 01-07-2023 TSH 5.957 uIU/mL Critically high 0.358-3.740 [facility] Comment on above: Performed By: #### L IPID, T4, TSH, FT3, CMP #### [facility] [address] [place], [place] [address] Dr. Maggy Irving NM STRESS/REST MULTIon 01-03 NM STRESS/REST MULTI Patient: SILVINO OJEDA Exam Date: 01/03/2023 : 1950 Gender:M Ordering : DR MARCELLA GROSS . Admission #: [id number] Family : Order #: [id number] CLICK HERE TO VIEW EXAM RADIOLOGY REPORT [...] Khanna M.D. on 01/04/2023 at 07:45 Normal [facility] ECHOCARDIO M/2D COMPLETEon 0 12-21-2022 ECHOCARDIO M/2D COMPLETE Patient: SILVINO OJEDA Exam Date: 12/21/2022 : 1950 Gender:M Ordering : DR MARCELLA GROSS . Admission #: [id number] Family : Order #: [id number] CLICK HERE TO VIEW EXAM ECHOCARDIOGRAM REPORT [...] TSH, FT3, CMP #### [facility] [address] [place] [address] Dr. Maggy Irving CBC AUTO DIFFon 12-07-2022 BASO # 0.0 103/ul Normal 0.0-0.1 [facility] Comment on above: Performed By: #### L IPID, T4, TSH, FT3, CMP #### [facility] [address] [place] [address] Dr. Maggy Irving Basophils/100 WBC (Bld) 0.2 % Normal 0.2-2.0 [facility] Comment on above: Performed By: #### L IPID, T4, TSH, FT3, CMP #### [facility] [address] [place] [address] Dr. Maggy Irving EO # 0.2 103/ul Normal 0.0-0.7 [facility] Comment on above: Performed By: #### L IPID, T4, TSH, FT3, CMP #### [facility] [address] [place] [address] Dr. Maggy Irving Eosinophils/100 WBC (Bld) 3.7 % Normal 0.9-7.0 [facility] Comment on above: Performed By: #### L IPID, T4, TSH, FT3, CMP #### [facility] [address] [place] [address] Dr. Maggy Irving Erythrocyte distribution width (RBC) [Ratio] 11.9 % Normal 11.0-15.0 [facility] Comment on above: Performed By: #### L IPID, T4, TSH, FT3, CMP #### [facility] [address] [place] [address] Dr. Maggy Irving Hematocrit (Bld) [Volume fraction] 39.7 % Critically low 42.0-54.0 [facility] Comment on above: Performed By: #### L IPID, T4, TSH, FT3, CMP #### [facility] [address] [place] [address] Dr. Maggy Irving Hemoglobin (Bld) [Mass/Vol] 14.0 g/dL Normal 14.0-18.0 [facility] Comment on above: Performed By: #### L IPID, T4, TSH, FT3, CMP #### [facility] [address] [place] [address] Dr. Maggy Irving IG # 0.02 10e3/ul Normal 0.00-0.03 [facility] Comment on above: Performed By: #### L IPID, T4, TSH, FT3, CMP #### [facility] [address] [place] [address] Dr. Maggy Irving IG % 0.5 % Normal 0.0-0.5 [facility] Comment on above: Performed By: #### L IPID, T4, TSH, FT3, CMP #### [facility] [address] [place] [address] Dr. Maggy Irving LYMPH # 0.9 103/ul Critically low 1.2-3.8 [facility] Comment on above: Performed By: #### L IPID, T4, TSH, FT3, CMP #### [facility] [address] [place] [address] Dr. Maggy Irving Lymphocytes/100 WBC (Bld) 21.1 % Normal 20.5-60.0 [facility] Comment on above: Performed By: #### L IPID, T4, TSH, FT3, CMP #### [facility] [address] [place] [address] Dr. Maggy Irving MANUAL DIFF REQ NO Normal [facility] Comment on above: Performed By: #### L IPID, T4, TSH, FT3, CMP #### [facility] [address] [place] [address] Dr. Maggy Irving MCH (RBC) [Entitic mass] 30.5 pg Normal 25.9-34.0 [facility] Comment on above: Performed By: #### L IPID, T4, TSH, FT3, CMP #### [facility] [address] [place] [address] Dr. Maggy Irving MCHC (RBC) [Mass/Vol] 35.3 g/dL Critically high 29.9-35.2 [facility] Comment on above: Performed By: #### L IPID, T4, TSH, FT3, CMP #### [facility] [address] [place] [address] Dr. Maggy Irving MCV (RBC) [Entitic vol] 86.5 fL Normal 80.0-94.0 [facility] Comment on above: Performed By: #### L IPID, T4, TSH, FT3, CMP #### [facility] [address] [place] [address] Dr. Maggy Irving MONO # 0.4 103/ul Normal 0.3-0.8 [facility] Comment on above: Performed By: #### L IPID, T4, TSH, FT3, CMP #### [facility] [address] [place] [address] Dr. Maggy Irving Monocytes/100 WBC (Bld) 8.7 % Normal 1.7-12.0 [facility] Comment on above: Performed By: #### L IPID, T4, TSH, FT3, CMP #### [facility] [address] [place] [address] Dr. Maggy Irving NEUT # 2.9 103/ul Normal 1.4-6.5 [facility] Comment on above: Performed By: #### L IPID, T4, TSH, FT3, CMP #### [facility] [address] [place] [address] Dr. Maggy Irving Neutrophils/100 WBC (Bld) 65.8 % Normal 43.0-75.0 [facility] Comment on above: Performed By: #### L IPID, T4, TSH, FT3, CMP #### [facility] [address] [place] [address] Dr. Maggy Irving Platelet mean volume (Bld) [Entitic vol] 9.9 fL Normal 9.5-13.5 [facility] Comment on above: Performed By: #### L IPID, T4, TSH, FT3, CMP #### [facility] [address] [address] [address] Maggy Irving PLT 128 103/ul Critically low 150-450 [facility] Comment on above: Performed By: #### L IPID, T4, TSH, FT3, CMP #### [facility] [address] [address] [address] Maggy Irving RBC 4.59 106/ul Critically low 4.70-6.10 [facility] Comment on above: Performed By: #### L IPID, T4, TSH, FT3, CMP #### [facility] [address] [address] [address] Maggy Irving WBC 4.4 103/ul Normal 4.0-11.0 [facility] Comment on above: Performed By: #### L IPID, T4, TSH, FT3, CMP #### [facility] [address] [place] [address] Dr. Maggy Irving FREE THYROXINE INDEX T7on FTI 2.72 Normal 1.30-4.50 [facility] Comment on above: Performed By: #### L IPID, T4, TSH, FT3, CMP #### [facility] [address] [place] [address] Dr. Maggy Irving T3U 34.0 % Normal 33.0-40.0 [facility] Comment on above: Performed By: #### L IPID, T4, TSH, FT3, CMP #### [facility] [address] [place] [address] Dr. Maggy Irving T4 [Mass/Vol] 8.00 ug/dL Normal 4.50-12.10 [facility] Comment on above: Performed By: #### L IPID, T4, TSH, FT3, CMP #### [facility] [address] [place] [address] Dr. Maggy Irving IRONon 12-07-2022 Iron [Mass/Vol] 134.0 ug/dL Normal 65.0-175.0 [facility] Comment on above: Performed By: #### L IPID, T4, TSH, FT3, CMP #### [facility] [address] [place] [address] Dr. Maggy Irving LIPID PROFILEon 12-07-2022 CHOL-HDL RATIO NORM SEE BELOW Normal [facility] Comment on above: Result Comment: 3.3 - 4.4 LOW RISK 4.4 - 7.1 AVERAGE RISK 7.1 - 11.0 MODERATE RISK >11.0 HIGH RISK Performed By: #### L IPID, T4, TSH, FT3, CMP #### [facility] [address] [place] [address] Dr. Maggy Irving Cholesterol [Mass/Vol] 180 mg/dL Normal <=200 [facility] Comment on above: Performed By: #### L IPID, T4, TSH, FT3, CMP #### [facility] [address] [place] [address] Dr. Maggy Irving Cholesterol in HDL [Mass/Vol] 37 mg/dL Critically low 40-60 [facility] Comment on above: Performed By: #### L IPID, T4, TSH, FT3, CMP #### [facility] [address] [place] [address] Dr. Maggy Irving Cholesterol in LDL [Mass/Vol] 95.2 mg/dL Normal [facility] Comment on above: Performed By: #### L IPID, T4, TSH, FT3, CMP #### [facility] [address] [place] [address] Dr. Maggy Irving Cholesterol.total/Ch olesterol in HDL [Mass ratio] 4.9 {ratio} Normal [facility] Comment on above: Performed By: #### L IPID, T4, TSH, FT3, CMP #### [facility] [address] [place] [address] Dr. Maggy Irving HDL NORMAL > or = 60 mg/dl - LO W CARDIOVASCULAR RISK <40 mg/dl - HIGH CARDIOVASCULAR RISK Normal [facility] Comment on above: Performed By: #### L IPID, T4, TSH, FT3, CMP #### [facility] [address] [place] [address] Dr. Maggy Irving LDL CALC NORMAL SEE BELOW Normal [facility] Comment on above: Result Comment: <100 mg/dl OPTIMAL 100 - 129 mg/dl NEAR OR ABOVE OPTIMAL 130 - 159 mg/dl BORDERLINE HIGH 160 - 189 mg/dl HIGH >190 mg/dl VERY HIGH Performed By: #### L IPID, T4, TSH, FT3, CMP #### [facility] [address] [address] [address] Maggy Irving Triglyceride [Mass/Vol] 239 mg/dL Critically high <=150 [facility] Comment on above: Performed By: #### L IPID, T4, TSH, FT3, CMP #### [facility] [address] [place] [address] Dr. Maggy Irving VLDL CALC 47.8 mg/dL Normal [facility] Comment on above: Performed By: #### L IPID, T4, TSH, FT3, CMP #### [facility] [address] [place] [address] Dr. Maggy Irving PROF 14(COMP METB)on 023 Albumin [Mass/Vol] 3.8 g/dL Normal 3.4-5.0 [facility] Comment on above: Performed By: #### L IPID, T4, TSH, FT3, CMP #### [facility] [address] [place] [address] Dr. Maggy Irving Albumin/Globulin [Mass ratio] 1.1 {ratio} Normal [facility] Comment on above: Performed By: #### L IPID, T4, TSH, FT3, CMP #### [facility] [address] [place] [address] Dr. Maggy Irving ALP [Catalytic activity/Vol] 53 U/L Normal 46-116 [facility] Comment on above: Performed By: #### L IPID, T4, TSH, FT3, CMP #### [facility] [address] [place] [address] Dr. Maggy Irving ALT [Catalytic activity/Vol] 43 U/L Normal 16-63 [facility] Comment on above: Performed By: #### L IPID, T4, TSH, FT3, CMP #### [facility] [address] [place] [address] Dr. Maggy Irving Anion gap [Moles/Vol] 12.2 mmol/L Normal [facility] Comment on above: Performed By: #### L IPID, T4, TSH, FT3, CMP #### [facility] [address] [place] [address] Dr. Maggy Irving AST [Catalytic activity/Vol] 22 U/L Normal 15-37 [facility] Comment on above: Performed By: #### L IPID, T4, TSH, FT3, CMP #### [facility] [address] [place] [address] Dr. Maggy Irving Bilirubin [Mass/Vol] 0.6 mg/dL Normal 0.2-1.0 [facility] Comment on above: Performed By: #### L IPID, T4, TSH, FT3, CMP #### [facility] [address] [place] [address] Dr. Maggy Irving Calcium [Mass/Vol] 8.9 mg/dL Normal 8.5-10.1 [facility] Comment on above: Performed By: #### L IPID, T4, TSH, FT3, CMP #### [facility] [address] [place] [address] Dr. Maggy Irving Chloride [Moles/Vol] 104 mmol/L Normal 98-107 [facility] Comment on above: Performed By: #### L IPID, T4, TSH, FT3, CMP #### [facility] [address] [place] [address] Dr. Maggy Irving CO2 [Moles/Vol] 28.8 mmol/L Normal 21.0-32.0 [facility] Comment on above: Performed By: #### L IPID, T4, TSH, FT3, CMP #### [facility] [address] [place] [address] Dr. Maggy Irving Creatinine [Mass/Vol] 0.83 mg/dL Normal 0.70-1.30 [facility] Comment on above: Performed By: #### L IPID, T4, TSH, FT3, CMP #### [facility] [address] [address] [address] Maggy Irving EGFR-AF ISRAELI >60 Normal >=60 [facility] Comment on above: Performed By: #### L IPID, T4, TSH, FT3, CMP #### [facility] [address] [place] [address] Dr. Maggy Irving EGFR-NON AF ISRAELI >60 Normal >=60 [facility] Comment on above: Performed By: #### L IPID, T4, TSH, FT3, CMP #### [facility] [address] [place] [address] Dr. Maggy Irving Globulin (S) [Mass/Vol] 3.4 g/dL Normal [facility] Comment on above: Performed By: #### L IPID, T4, TSH, FT3, CMP #### [facility] [address] [place] [address] Dr. Maggy Irving Glucose [Mass/Vol] 116 mg/dL Critically high 74-106 [facility] Comment on above: Performed By: #### L IPID, T4, TSH, FT3, CMP #### [facility] [address] [place] [address] Dr. Maggy Irving Potassium [Moles/Vol] 4.0 mmol/L Normal 3.5-5.1 [facility] Comment on above: Performed By: #### L IPID, T4, TSH, FT3, CMP #### [facility] [address] [address] [address] Maggy Irving Protein [Mass/Vol] 7.2 g/dL Normal 6.4-8.2 [facility] Comment on above: Performed By: #### L IPID, T4, TSH, FT3, CMP #### [facility] [address] [place] [address] Dr. Maggy Irving Sodium [Moles/Vol] 141 mmol/L Normal 136-145 [facility] Comment on above: Performed By: #### L IPID, T4, TSH, FT3, CMP #### [facility] [address] [place] [address] Dr. Maggy Irving Urea nitrogen [Mass/Vol] 17.0 mg/dL Normal 7.0-18.0 [facility] Comment on above: Performed By: #### L IPID, T4, TSH, FT3, CMP #### [facility] [address] [place] [address] Dr. Maggy Irving Urea nitrogen/Creatinine [Mass ratio] 20.5 mg/mg Normal [facility] Comment on above: Performed By: #### L IPID, T4, TSH, FT3, CMP #### [facility] [address] [place] [address] Dr. Maggy Irving TSHon 12-07-2022 TSH 5.531 uIU/mL Critically high 0.358-3.740 [facility] Comment on above: Performed By: #### L IPID, T4, TSH, FT3, CMP #### [facility] [address] [place] [address] Dr. Maggy Irving TESTOSTERONE, TOTALon 2021 Testosterone [Mass/Vol] 390 ng/dL Normal 264-916 [facility] Comment on above: Result Comment: Adul t male reference interval is based on a population of healthy nonobese males (BMI <30) between 19 and 39 years old. Reynaldo et.al. JCEM 2017,102;8276-9683. PMID: [id number]. Performed By: #### L IPID, T4, TSH, FT3, CMP #### [facility] [address] [place] [address] Dr. Maggy Irving CBC AUTO DIFFon 04-09-2022 BASO # 0.0 103/ul Normal 0.0-0.1 [facility] Comment on above: Performed By: #### L IPID, T4, TSH, FT3, CMP #### [facility] [address] [place] [address] Dr. Maggy Irving Basophils/100 WBC (Bld) 0.2 % Normal 0.2-2.0 [facility] Comment on above: Performed By: #### L IPID, T4, TSH, FT3, CMP #### [facility] [address] [place] [address] Dr. Maggy Irving EO # 0.2 103/ul Normal 0.0-0.7 [facility] Comment on above: Performed By: #### L IPID, T4, TSH, FT3, CMP #### [facility] [address] [place] [address] Dr. Maggy Irving Eosinophils/100 WBC (Bld) 3.1 % Normal 0.9-7.0 [facility] Comment on above: Performed By: #### L IPID, T4, TSH, FT3, CMP #### [facility] [address] [place] [address] Dr. Maggy Irving Erythrocyte distribution width (RBC) [Ratio] 12.3 % Normal 11.0-15.0 [facility] Comment on above: Performed By: #### L IPID, T4, TSH, FT3, CMP #### [facility] [address] [place] [address] Dr. Maggy Irving Hematocrit (Bld) [Volume fraction] 41.6 % Critically low 42.0-54.0 [facility] Comment on above: Performed By: #### L IPID, T4, TSH, FT3, CMP #### [facility] [address] [place] [address] Dr. Maggy Irving Hemoglobin (Bld) [Mass/Vol] 14.6 g/dL Normal 14.0-18.0 [facility] Comment on above: Performed By: #### L IPID, T4, TSH, FT3, CMP #### [facility] [address] [place] [address] Dr. Maggy Irving IG # 0.02 10e3/ul Normal 0.00-0.03 [facility] Comment on above: Performed By: #### L IPID, T4, TSH, FT3, CMP #### [facility] [address] [place] [address] Dr. Maggy Irving IG % 0.4 % Normal 0.0-0.5 [facility] Comment on above: Performed By: #### L IPID, T4, TSH, FT3, CMP #### [facility] [address] [place] [address] Dr. Maggy Irving LYMPH # 0.9 103/ul Critically low 1.2-3.8 [facility] Comment on above: Performed By: #### L IPID, T4, TSH, FT3, CMP #### [facility] [address] [place] [address] Dr. Maggy Irving Lymphocytes/100 WBC (Bld) 17.9 % Critically low 20.5-60.0 [facility] Comment on above: Performed By: #### L IPID, T4, TSH, FT3, CMP #### [facility] [address] [place] [address] Dr. Maggy Irving MANUAL DIFF REQ NO Normal [facility] Comment on above: Performed By: #### L IPID, T4, TSH, FT3, CMP #### [facility] [address] [place] [address] Dr. Maggy Irving MCH (RBC) [Entitic mass] 31.1 pg Normal 25.9-34.0 [facility] Comment on above: Performed By: #### L IPID, T4, TSH, FT3, CMP #### [facility] [address] [place] [address] Dr. Maggy Irving MCHC (RBC) [Mass/Vol] 35.1 g/dL Normal 29.9-35.2 [facility] Comment on above: Performed By: #### L IPID, T4, TSH, FT3, CMP #### [facility] [address] [place] [address] Dr. Maggy Irving MCV (RBC) [Entitic vol] 88.5 fL Normal 80.0-94.0 [facility] Comment on above: Performed By: #### L IPID, T4, TSH, FT3, CMP #### [facility] [address] [place] [address] Dr. Maggy Irving MONO # 0.4 103/ul Normal 0.3-0.8 [facility] Comment on above: Performed By: #### L IPID, T4, TSH, FT3, CMP #### [facility] [address] [place] [address] Dr. Maggy Irving Monocytes/100 WBC (Bld) 8.7 % Normal 1.7-12.0 [facility] Comment on above: Performed By: #### L IPID, T4, TSH, FT3, CMP #### [facility] [address] [place] [address] Dr. Maggy Irving NEUT # 3.4 103/ul Normal 1.4-6.5 [facility] Comment on above: Performed By: #### L IPID, T4, TSH, FT3, CMP #### [facility] [address] [place] [address] Dr. Maggy Irving Neutrophils/100 WBC (Bld) 69.7 % Normal 43.0-75.0 [facility] Comment on above: Performed By: #### L IPID, T4, TSH, FT3, CMP #### [facility] [address] [place] [address] Dr. Maggy Irving Platelet mean volume (Bld) [Entitic vol] 9.9 fL Normal 9.5-13.5 [facility] Comment on above: Performed By: #### L IPID, T4, TSH, FT3, CMP #### [facility] [address] [place] [address] Dr. Maggy Irving PLT 121 103/ul Critically low 150-450 [facility] Comment on above: Performed By: #### L IPID, T4, TSH, FT3, CMP #### [facility] [address] [place] [address] Dr. Maggy Irving RBC 4.70 106/ul Normal 4.70-6.10 [facility] Comment on above: Performed By: #### L IPID, T4, TSH, FT3, CMP #### [facility] [address] [place] [address] Dr. Maggy Irving WBC 4.8 103/ul Normal 4.0-11.0 [facility] Comment on above: Performed By: #### L IPID, T4, TSH, FT3, CMP #### [facility] [address] [address] [address] Maggy Irving FREE T3on 04-09-2022 FREE T3 3.15 pg/mlL Normal 2.18-3.98 [facility] Comment on above: Performed By: #### L IPID, T4, TSH, FT3, CMP #### [facility] [address] [address] [address] Maggy Irving GLYCOHEMOGLOBIN A1Con 2021 ADA RECOMMENDATION SEE BELOW Normal [facility] Comment on above: Result Comment: ADA RECOMMENDED LIMIT 4.0 - 6.0 ADA THERAPEUTIC TARGET < 7.0 ACTION SUGGESTED > 7.0 Performed By: #### L IPID, T4, TSH, FT3, CMP #### [facility] [address] [place] [address] Dr. Maggy Irving Glucose [Mass/Vol] 123 mg/dL Normal [facility] Comment on above: Performed By: #### L IPID, T4, TSH, FT3, CMP #### [facility] [address] [place] [address] Dr. Maggy Irving HbA1c (Bld) [Mass fraction] 5.9 % Normal 4.5-6.2 [facility] Comment on above: Performed By: #### L IPID, T4, TSH, FT3, CMP #### [facility] [address] [place] [address] Dr. Maggy Irving LIPID PROFILEon 04-09-2022 CHOL-HDL RATIO NORM SEE BELOW Normal [facility] Comment on above: Result Comment: 3.3 - 4.4 LOW RISK 4.4 - 7.1 AVERAGE RISK 7.1 - 11.0 MODERATE RISK >11.0 HIGH RISK Performed By: #### L IPID, T4, TSH, FT3, CMP #### [facility] [address] [place] [address] Dr. Maggy Irving Cholesterol [Mass/Vol] 174 mg/dL Normal <=200 [facility] Comment on above: Performed By: #### L IPID, T4, TSH, FT3, CMP #### [facility] [address] [address] [address] Maggy Irving Cholesterol in HDL [Mass/Vol] 36 mg/dL Critically low 40-60 [facility] Comment on above: Performed By: #### L IPID, T4, TSH, FT3, CMP #### [facility] [address] [address] [address] Maggy Irving Cholesterol in LDL [Mass/Vol] 114.4 mg/dL Normal [facility] Comment on above: Performed By: #### L IPID, T4, TSH, FT3, CMP #### [facility] [address] [address] [address] Maggy Irving Cholesterol.total/Ch olesterol in HDL [Mass ratio] 4.8 {ratio} Normal [facility] Comment on above: Performed By: #### L IPID, T4, TSH, FT3, CMP #### [facility] [address] [place] [address] Dr. Maggy Irving HDL NORMAL > or = 60 mg/dl - LO W CARDIOVASCULAR RISK <40 mg/dl - HIGH CARDIOVASCULAR RISK Normal [facility] Comment on above: Performed By: #### L IPID, T4, TSH, FT3, CMP #### [facility] [address] [address] [address] Maggy Irving LDL CALC NORMAL SEE BELOW Normal [facility] Comment on above: Result Comment: <100 mg/dl OPTIMAL 100 - 129 mg/dl NEAR OR ABOVE OPTIMAL 130 - 159 mg/dl BORDERLINE HIGH 160 - 189 mg/dl HIGH >190 mg/dl VERY HIGH Performed By: #### L IPID, T4, TSH, FT3, CMP #### [facility] [address] [address] [address] Maggy Irving Triglyceride [Mass/Vol] 118 mg/dL Normal <=150 [facility] Comment on above: Performed By: #### L IPID, T4, TSH, FT3, CMP #### [facility] [address] [address] [address] Maggy Irving VLDL CALC 23.6 mg/dL Normal [facility] Comment on above: Performed By: #### L IPID, T4, TSH, FT3, CMP #### [facility] [address] [place] [address] Dr. Maggy Irving OCC BLD IMMUNO SCREENon 03-20 OCCULT BLOOD Negative Normal NEGATIVE [facility] Comment on above: Performed By: #### O BSCRN #### [facility] [address] [place] [address] Dr. Maggy Irving PROF 14(COMP METB)on 022 Albumin [Mass/Vol] 3.6 g/dL Normal 3.4-5.0 [facility] Comment on above: Performed By: #### L IPID, T4, TSH, FT3, CMP #### [facility] [address] [place] [address] Dr. Maggy Irving Albumin/Globulin [Mass ratio] 1.1 {ratio} Normal [facility] Comment on above: Performed By: #### L IPID, T4, TSH, FT3, CMP #### [facility] [address] [place] [address] Dr. Maggy Irving ALP [Catalytic activity/Vol] 47 U/L Normal 46-116 [facility] Comment on above: Performed By: #### L IPID, T4, TSH, FT3, CMP #### [facility] [address] [place] [address] Dr. Maggy Irving ALT [Catalytic activity/Vol] 31 U/L Normal 16-63 [facility] Comment on above: Performed By: #### L IPID, T4, TSH, FT3, CMP #### [facility] [address] [place] [address] Dr. Maggy Irving Anion gap [Moles/Vol] 10.2 mmol/L Normal [facility] Comment on above: Performed By: #### L IPID, T4, TSH, FT3, CMP #### [facility] [address] [place] [address] Dr. Maggy Irving AST [Catalytic activity/Vol] 17 U/L Normal 15-37 [facility] Comment on above: Performed By: #### L IPID, T4, TSH, FT3, CMP #### [facility] [address] [place] [address] Dr. Maggy Irving Bilirubin [Mass/Vol] 0.6 mg/dL Normal 0.2-1.0 [facility] Comment on above: Performed By: #### L IPID, T4, TSH, FT3, CMP #### [facility] [address] [place] [address] Dr. Maggy Irving Calcium [Mass/Vol] 8.1 mg/dL Critically low 8.5-10.1 [facility] Comment on above: Performed By: #### L IPID, T4, TSH, FT3, CMP #### [facility] [address] [place] [address] Dr. Maggy Irving Chloride [Moles/Vol] 105 mmol/L Normal 98-107 [facility] Comment on above: Performed By: #### L IPID, T4, TSH, FT3, CMP #### [facility] [address] [place] [address] Dr. Maggy Irving CO2 [Moles/Vol] 29.6 mmol/L Normal 21.0-32.0 [facility] Comment on above: Performed By: #### L IPID, T4, TSH, FT3, CMP #### [facility] [address] [place] [address] Dr. Maggy Irving Creatinine [Mass/Vol] 0.89 mg/dL Normal 0.70-1.30 [facility] Comment on above: Performed By: #### L IPID, T4, TSH, FT3, CMP #### [facility] [address] [place] [address] Dr. Maggy Irving EGFR-AF ISRAELI >60 Normal >=60 [facility] Comment on above: Performed By: #### L IPID, T4, TSH, FT3, CMP #### [facility] [address] [place] [address] Dr. Maggy Irving EGFR-NON AF ISRAELI >60 Normal >=60 [facility] Comment on above: Performed By: #### L IPID, T4, TSH, FT3, CMP #### [facility] [address] [address] [address] Maggy Irving Globulin (S) [Mass/Vol] 3.2 g/dL Normal [facility] Comment on above: Performed By: #### L IPID, T4, TSH, FT3, CMP #### [facility] [address] [place] [address] Dr. Maggy Irving Glucose [Mass/Vol] 110 mg/dL Critically high 74-106 T [facility] Comment on above: Performed By: #### L IPID, T4, TSH, FT3, CMP #### [facility] [address] [place] [address] Dr. Maggy Irving Potassium [Moles/Vol] 3.8 mmol/L Normal 3.5-5.1 [facility] Comment on above: Performed By: #### L IPID, T4, TSH, FT3, CMP #### [facility] [address] [place] [address] Dr. Maggy Irving Protein [Mass/Vol] 6.8 g/dL Normal 6.4-8.2 [facility] Comment on above: Performed By: #### L IPID, T4, TSH, FT3, CMP #### [facility] [address] [place] [address] Dr. Maggy Irving Sodium [Moles/Vol] 141 mmol/L Normal 136-145 [facility] Comment on above: Performed By: #### L IPID, T4, TSH, FT3, CMP #### [facility] [address] [place] [address] Dr. Maggy Irving Urea nitrogen [Mass/Vol] 17.0 mg/dL Normal 7.0-18.0 [facility] Comment on above: Performed By: #### L IPID, T4, TSH, FT3, CMP #### [facility] [address] [place] [address] Dr. Maggy Irving Urea nitrogen/Creatinine [Mass ratio] 19.1 mg/mg Normal [facility] Comment on above: Performed By: #### L IPID, T4, TSH, FT3, CMP #### [facility] [address] [place], [place] [id number] Dr. Maggy Irving T4on 04-09-2022 T4 [Mass/Vol] 7.90 ug/dL Normal 4.50-12.10 [facility] Comment on above: Performed By: #### L IPID, T4, TSH, FT3, CMP #### [facility] [address] [address] [address] Maggy Irving TSHon 04-09-2022 TSH 4.949 uIU/mL Critically high 0.358-3.740 [facility] Comment on above: Performed By: #### L IPID, T4, TSH, FT3, CMP #### [facility] [address] [address] [address] Maggy Irving Vital Signs Date Time Vital Sign Value Performing Clinician Faci lity 04-06-2024 09:43-0400 Body height 177.8 cm [facility] 04-06-2024 09:43-0400 Body mass index (BMI) [Ratio] 34.4 kg/m2 [facility] 04-06-2024 09:43-0400 Body temperature 98.3 [degF] [facility] 04-06-2024 09:43-0400 Body weight 109.08 kg [facility] 04-06-2024 09:43-0400 Diastolic blood pressure 78 mm[Hg] [facility] 04-06-2024 09:43-0400 Heart rate 87 /min [facility] 04-06-2024 09:43-0400 Respiratory rate 18 /min [facility] 04-06-2024 09:43-0400 SaO2% (BldA) [Mass fraction] 96 % [facility] 04-06-2024 09:43-0400 Systolic blood pressure 146 mm[Hg] [facility] Encounters Encounter Date Encounter Type Care Provider Facility Start: 04-27-2024 End: 04-27-2024 ambulatory Marcella Gross [facility] Work Phone: Start: 04-27-2024 End: 04-27-2024 Departed Referred MD Marcella Gross Work Phone: [facility] Start: 04-06-2024 End: 04-06-2024 ambulatory [facility] Work Phone: Start: 04-06-2024 End: 04-06-2024 Patient encounter procedure [facility] Work Phone: Start: 02-10-2023 End: 02-11-2023 ambulatory IVELISSE ORNELAS Facility:[facility] Start: 02-07-2023 End: 02-07-2023 ambulatory IVELISSE ORNELAS Facility:[facility] Start: 02-06-2023 Encounter for preprocedural laboratory examination IVELISSE ORNELAS [facility] Start: 01-31-2023 End: 02-01-[address] [...] TSH, FT3, CMP #### [facility] [address] [place] [address] Dr. Maggy Irving Payers Date Payer Category Payer Self-pay 1957 Medicare [id number] 1957 Unknown [id number] 1950 Unknown [id number] 2.16.84 [id number] 1950 Unknown [id number] 2.16.84 [id number] 1952 Unknown [id number] 2.16.84 [id number] 1952 Unknown [id number] 2.16.84 [id number] 1952 Unknown [id number] 2.16.84 [id number] 1952 Unknown [id number] 2.16.84 [id number] 1952 Unknown [id number] 2.16.84 [id number] 1952 Unknown [id number] 2.16.84 [id number] 1952 Unknown [id number] 2.16.84 [id number] 1952 Unknown [id number] 2.16.84 [id number] 1952 Unknown [id number] 2.16.84 [id number] Medicare Medicare [id number] Unknown [id number] 2.16.8 [id number] Social History Date Type Detail Facility Tobacco smoking stat [facility] Unknown if ever smoked [facility] Work Phone: Start: 1950 Sex Assigned At Male F [facility] Clinical Note 02-07-2023 Note Date & [...] authenticated by: OLVIN KHANNA Date: 2023-02-07 09:41 [facility] Evaluation note Note Date & Type Note Facility Evaluation note Diagnosis Onset Date Bacterial conjunctivitis of right eye acute [facility] Work Phone: Summary Purpose Family [...] and content) DATE CREATED AUTHOR 02/25/2023 [facility] DATE CREATED AUTHOR AUTHOR'S ORGANIZ ATION 05/02/2024 [facility] Care Teams (unrecognized sec tion [...] BE BASED ON THE PRIMARY CLINICAL RECORDS. [facility] [employer] [facility]. provides no warranty or guarantee of the accuracy or completeness of information in this document.
== END 2024-11-21 09:03 | disposition home or self-care (01) ==
LOC: WC 09:02
PROVIDERS: PCP Family Medicine; Visit Provider Physician Assistant
DX: L97.422 Non-pressure chronic ulcer of left heel and midfoot with fat layer exposed (principal)
CPT/HCPCS: 11042

== ENCOUNTER 2024-12-05 10:27 | Outpatient (OUT) | payer MEDICARE, OTHER, SELFPAY ==
--- OUTSIDE RECORDS SUMMARY | 2024-12-05 10:32 | XMS_ITS | CCD ---
Author Organization 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; Translations: [OTH [facility] CURRENT [...] [id number] Received: 04/30/24 Status: CASS Req Num: [id number] Spec Type: Impression Subm Dr: Marcella Gross MD Tissues: PATHPER Procedures: PATHREVIEW Age/ Patient Sex Location Account Attending Physician RustySilvino Joel 74/M LABELL [id number] Marcella Gross MD SPEC NUM: [id number] RECD: 04/30/24 STATUS: CASS REQ NUM: [id number] KAREN: 04/27/[address]: Marcella Gross MD ENTERED: 04/30/[address] [facility] [address]: SPEC TYPE: Impression DEPT: ALEXSANDRA Cervantes ENTERED BY: [id number] RECV BY: [id number] ORDERED: PATHREVIEW ORDERED: PATHREVIEW Pathologist Review Abnormal [...] shifted granulocytes, or granulocytic dysplasia observed CPT: 26526 -------- -------- Specimen: [id number] Received: 04/30/24 Status: CASS Moore Num: [id number] Spec Type: Impression Subm Dr: Marcella Gross MD Tissues: PATHPER Procedures: PATHREVIEW -------- Patient: Silvino Ojeda Joel [id number] (Continued) -------- Signed (signature on file) ChinAlexys Irving MD 04/30/241945 Normal [facility] CULTURE OTHERon 02-11-2023 CULTURE OTHER [...] F Trimethoprim/Sulfamet hoxazole <=10 S F Normal [facility] Comment on above: Performed By: #### L IPID, T4, TSH, FT3, CMP #### [facility] [address] [address] [address] Maggy Irving FUNGAL CULTUREon 02-09-2023 Fungus Stain Final report Normal [facility] Comment on above: Performed By: #### L IPID, T4, TSH, FT3, CMP #### [facility] [address] [address] [address] Maggy Irving Result 1 Comment Normal [facility] Comment on above: Result Comment: SUDHIR/ Calcofluor preparation: no fungus observed. Performed By: #### L IPID, T4, TSH, FT3, CMP #### [facility] [address] [address] [address] Maggy Irving ACID FAST SMEAR AND CXon Acid Fast Smear Negative Normal [facility] Comment on above: Performed By: #### A FB #### [facility] [address] [place] [address] Dr. Maggy Irving [employer] Specimen Processing Tissue Grinding [facility] Comment on above: Performed By: #### A FB #### [facility] [address] [place] [address] Dr. Maggy Irving CULTURE ANAEROBICon 02-08-20 CULTURE ANAEROBIC Isolate 1 Finegoldia magna Light growth of Normal [facility] Comment on above: Result Comment: EVID ENCE BASED PRACTICE BY [facility] HAS DEMONSTRATED THAT FINEGOLDIA SPECIES ARE ROUTINELY SUSCEPTIBLE TO PIPERACILLIN-TAZOBACTAM, CEFOXITIN, ERTAPENEM, IMIPENEM METRONIDAZOLE AND VARIABLY RESISTANT TO CLINDAMYCIN. Performed By: #### L IPID, T4, TSH, FT3, CMP #### [facility] [address] [place] [address] Dr. Maggy Irving GRAM STAINon 02-07-2023 COMMENTS NO ORGANISMS OBSERVED [facility] Comment on above: Performed By: #### G STAIN #### [facility] [address] [place] [address] Dr. Maggy Irving DIPHTHEROIDS Normal [facility] Comment on above: Performed By: #### G STAIN #### [facility] [address] [place] [address] Dr. Maggy Irving EPITHELIALS Normal [facility] Comment on above: Performed By: #### G STAIN #### [facility] [address] [address] [address] Maggy Irving FUNGAL ELEMENTS Normal [facility] Comment on above: Performed By: #### G STAIN #### [facility] [address] [address] [address] Maggy Irving GRAM NEG BACILLI Normal [facility] Comment on above: Performed By: #### G STAIN #### [facility] [address] [address] [address] Maggy MENDOZA NEG DIPPLOCOCCI Normal [facility] Comment on above: Performed By: #### G STAIN #### [facility] [address] [place] [address] Dr. Maggy Irving GRAM POS BACILLI [facility] Comment on above: Performed By: #### G STAIN #### [facility] [address] [place] [address] Dr. Maggy Irving GRAM POSITIVE COCCI Normal [facility] Comment on above: Performed By: #### G STAIN #### [facility] [address] [address] [address] Maggy Irving GRAM STAIN SOURCE 5th Metatarsal Bone [facility] Comment on above: Performed By: #### G STAIN #### [facility] [address] [place] [address] Dr. Maggy Irving GS_DIPTH [facility] Comment on above: Performed By: #### G STAIN #### [facility] [address] [place] [address] Dr. Maggy Irving WBC RARE Normal [facility] Comment on above: Performed By: #### G STAIN #### [facility] [address] [place] [address] Dr. Maggy Irving POINT OF CARE GLUCOSEon 01-18 Glucose [Mass/Vol] 114 mg/dL Critically high 74-106 [facility] Comment on above: Performed By: #### P OCGLUC #### [facility] [address] [place] [address] Dr. Maggy Irving Glucose [Mass/Vol] 122 mg/dL Critically high 74-106 [facility] Comment on above: Performed By: #### P OCGLUC #### [facility] [address] [place] [address] Dr. Maggy Irving PROF CHEM 8 (BAS METB)on Anion gap [Moles/Vol] 12.0 mmol/L Normal [facility] Comment on above: Performed By: #### L IPID, T4, TSH, FT3, CMP #### [facility] [address] [address] [address] Maggy Irving Calcium [Mass/Vol] 8.7 mg/dL Normal 8.5-10.1 [facility] Comment on above: Performed By: #### L IPID, T4, TSH, FT3, CMP #### [facility] [address] [place] [address] Dr. Maggy Irving Chloride [Moles/Vol] 104 mmol/L Normal 98-107 [facility] Comment on above: Performed By: #### L IPID, T4, TSH, FT3, CMP #### [facility] [address] [address] [address] Maggy Irving CO2 [Moles/Vol] 28.1 mmol/L Normal 21.0-32.0 [facility] Comment on above: Performed By: #### L IPID, T4, TSH, FT3, CMP #### [facility] [address] [place] [address] Dr. Maggy Irving Creatinine [Mass/Vol] 0.80 mg/dL Normal 0.70-1.30 [facility] Comment on above: Performed By: #### L IPID, T4, TSH, FT3, CMP #### [facility] [address] [place] [address] Dr. Maggy Irving EGFR-AF CYMRO >60 Normal >=60 [facility] Comment on above: Performed By: #### L IPID, T4, TSH, FT3, CMP #### [facility] [address] [place] [address] Dr. Maggy Irving EGFR-NON AF CYMRO >60 Normal >=60 [facility] Comment on above: Performed By: #### L IPID, T4, TSH, FT3, CMP #### [facility] [address] [place] [address] Dr. Maggy Irving Glucose [Mass/Vol] 129 mg/dL Critically high 74-106 [facility] Comment on above: Performed By: #### L IPID, T4, TSH, FT3, CMP #### [facility] [address] [place] [address] Dr. Maggy Irving Potassium [Moles/Vol] 4.1 mmol/L Normal 3.5-5.1 [facility] Comment on above: Performed By: #### L IPID, T4, TSH, FT3, CMP #### [facility] [address] [place] [address] Dr. Maggy Irving Sodium [Moles/Vol] 140 mmol/L Normal 136-145 [facility] Comment on above: Performed By: #### L IPID, T4, TSH, FT3, CMP #### [facility] [address] [place] [address] Dr. Maggy Irving Urea nitrogen [Mass/Vol] 20.0 mg/dL Critically high 7.0-18.0 [facility] Comment on above: Performed By: #### L IPID, T4, TSH, FT3, CMP #### [facility] [address] [place] [address] Dr. Maggy Irving Urea nitrogen/Creatinine [Mass ratio] 25.0 mg/mg Normal [facility] Comment on above: Performed By: #### L IPID, T4, TSH, FT3, CMP #### [facility] [address] [place] [address] Dr. Maggy Irving FREE T3on 01-07-2023 FREE T3 3.24 pg/mlL Normal 2.18-3.98 [facility] Comment on above: Performed By: #### L IPID, T4, TSH, FT3, CMP #### [facility] [address] [place] [address] Dr. Maggy Irving T4on 01-07-2023 T4 [Mass/Vol] 9.10 ug/dL Normal 4.50-12.10 [facility] Comment on above: Performed By: #### L IPID, T4, TSH, FT3, CMP #### [facility] [address] [place], [place] [address] Dr. Maggy Irving TSHon 01-07-2023 TSH 5.957 uIU/mL Critically high 0.358-3.740 [facility] Comment on above: Performed By: #### L IPID, T4, TSH, FT3, CMP #### [facility] [address] [place], [place] [address] Dr. Maggy Irving NM STRESS/REST MULTIon 01-03 NM STRESS/REST MULTI Patient: SILVINO OJEDA Exam Date: 01/03/2023 : 1950 Gender:M Ordering : DR MARCELLA GROSS . Admission #: [id number] Family : Order #: [id number] CLICK HERE TO VIEW EXAM RADIOLOGY REPORT [...] Khanna M.D. on 01/04/2023 at 07:45 Normal [facility] ECHOCARDIO M/2D COMPLETEon 0 12-21-2022 ECHOCARDIO M/2D COMPLETE Patient: SILVINO OJEDA Exam Date: 12/21/2022 : 1950 Gender:M Ordering : DR MARCELLA GROSS . Admission #: [id number] Family : Order #: [id number] CLICK HERE TO VIEW EXAM ECHOCARDIOGRAM REPORT [...] M.D. on 12/23/2022 at 18:05 Normal [facility] BNPon 12-07-2022 Natriuretic peptide B (Bld) [Mass/Vol] 37.0 pg/mL Normal <=900.0 [facility] Comment on above: Performed By: #### L IPID, T4, TSH, FT3, CMP #### [facility] [address] [place] [address] Dr. Maggy Irving CBC AUTO DIFFon 12-07-2022 BASO # 0.0 103/ul Normal 0.0-0.1 [facility] Comment on above: Performed By: #### L IPID, T4, TSH, FT3, CMP #### [facility] [address] [place] [address] Dr. Maggy Irving Basophils/100 WBC (Bld) 0.2 % Normal 0.2-2.0 [facility] Comment on above: Performed By: #### L IPID, T4, TSH, FT3, CMP #### [facility] [address] [place] [address] Dr. Maggy Irving EO # 0.2 103/ul Normal 0.0-0.7 [facility] Comment on above: Performed By: #### L IPID, T4, TSH, FT3, CMP #### [facility] [address] [place] [address] Dr. Maggy Irving Eosinophils/100 WBC (Bld) 3.7 % Normal 0.9-7.0 [facility] Comment on above: Performed By: #### L IPID, T4, TSH, FT3, CMP #### [facility] [address] [place] [address] Dr. Maggy Irving Erythrocyte distribution width (RBC) [Ratio] 11.9 % Normal 11.0-15.0 [facility] Comment on above: Performed By: #### L IPID, T4, TSH, FT3, CMP #### [facility] [address] [place] [address] Dr. Maggy Irving Hematocrit (Bld) [Volume fraction] 39.7 % Critically low 42.0-54.0 [facility] Comment on above: Performed By: #### L IPID, T4, TSH, FT3, CMP #### [facility] [address] [place] [address] Dr. Maggy Irving Hemoglobin (Bld) [Mass/Vol] 14.0 g/dL Normal 14.0-18.0 [facility] Comment on above: Performed By: #### L IPID, T4, TSH, FT3, CMP #### [facility] [address] [place] [address] Dr. Maggy Irving IG # 0.02 10e3/ul Normal 0.00-0.03 [facility] Comment on above: Performed By: #### L IPID, T4, TSH, FT3, CMP #### [facility] [address] [place] [address] Dr. Maggy Irving IG % 0.5 % Normal 0.0-0.5 [facility] Comment on above: Performed By: #### L IPID, T4, TSH, FT3, CMP #### [facility] [address] [place] [address] Dr. Maggy Irving LYMPH # 0.9 103/ul Critically low 1.2-3.8 [facility] Comment on above: Performed By: #### L IPID, T4, TSH, FT3, CMP #### [facility] [address] [place] [address] Dr. Maggy Irving Lymphocytes/100 WBC (Bld) 21.1 % Normal 20.5-60.0 [facility] Comment on above: Performed By: #### L IPID, T4, TSH, FT3, CMP #### [facility] [address] [place] [address] Dr. Maggy Irving MANUAL DIFF REQ NO Normal [facility] Comment on above: Performed By: #### L IPID, T4, TSH, FT3, CMP #### [facility] [address] [place] [address] Dr. Maggy Irving MCH (RBC) [Entitic mass] 30.5 pg Normal 25.9-34.0 [facility] Comment on above: Performed By: #### L IPID, T4, TSH, FT3, CMP #### [facility] [address] [place] [address] Dr. Maggy Irving MCHC (RBC) [Mass/Vol] 35.3 g/dL Critically high 29.9-35.2 [facility] Comment on above: Performed By: #### L IPID, T4, TSH, FT3, CMP #### [facility] [address] [place] [address] Dr. Maggy Irving MCV (RBC) [Entitic vol] 86.5 fL Normal 80.0-94.0 [facility] Comment on above: Performed By: #### L IPID, T4, TSH, FT3, CMP #### [facility] [address] [place] [address] Dr. Maggy Irving MONO # 0.4 103/ul Normal 0.3-0.8 [facility] Comment on above: Performed By: #### L IPID, T4, TSH, FT3, CMP #### [facility] [address] [place] [address] Dr. Maggy Irving Monocytes/100 WBC (Bld) 8.7 % Normal 1.7-12.0 [facility] Comment on above: Performed By: #### L IPID, T4, TSH, FT3, CMP #### [facility] [address] [place] [address] Dr. Maggy Irving NEUT # 2.9 103/ul Normal 1.4-6.5 [facility] Comment on above: Performed By: #### L IPID, T4, TSH, FT3, CMP #### [facility] [address] [place] [address] Dr. Maggy Irving Neutrophils/100 WBC (Bld) 65.8 % Normal 43.0-75.0 [facility] Comment on above: Performed By: #### L IPID, T4, TSH, FT3, CMP #### [facility] [address] [place] [address] Dr. Maggy Irving Platelet mean volume (Bld) [Entitic vol] 9.9 fL Normal 9.5-13.5 [facility] Comment on above: Performed By: #### L IPID, T4, TSH, FT3, CMP #### [facility] [address] [address] [address] Maggy Irving PLT 128 103/ul Critically low 150-450 [facility] Comment on above: Performed By: #### L IPID, T4, TSH, FT3, CMP #### [facility] [address] [address] [address] Maggy Irving RBC 4.59 106/ul Critically low 4.70-6.10 [facility] Comment on above: Performed By: #### L IPID, T4, TSH, FT3, CMP #### [facility] [address] [address] [address] Maggy Irving WBC 4.4 103/ul Normal 4.0-11.0 [facility] Comment on above: Performed By: #### L IPID, T4, TSH, FT3, CMP #### [facility] [address] [place] [address] Dr. Maggy Irving FREE THYROXINE INDEX T7on FTI 2.72 Normal 1.30-4.50 [facility] Comment on above: Performed By: #### L IPID, T4, TSH, FT3, CMP #### [facility] [address] [place] [address] Dr. Maggy Irving T3U 34.0 % Normal 33.0-40.0 [facility] Comment on above: Performed By: #### L IPID, T4, TSH, FT3, CMP #### [facility] [address] [place] [address] Dr. Maggy Irving T4 [Mass/Vol] 8.00 ug/dL Normal 4.50-12.10 [facility] Comment on above: Performed By: #### L IPID, T4, TSH, FT3, CMP #### [facility] [address] [place] [address] Dr. Maggy Irving IRONon 12-07-2022 Iron [Mass/Vol] 134.0 ug/dL Normal 65.0-175.0 [facility] Comment on above: Performed By: #### L IPID, T4, TSH, FT3, CMP #### [facility] [address] [place] [address] Dr. Maggy Irving LIPID PROFILEon 12-07-2022 CHOL-HDL RATIO NORM SEE BELOW Normal [facility] Comment on above: Result Comment: 3.3 - 4.4 LOW RISK 4.4 - 7.1 AVERAGE RISK 7.1 - 11.0 MODERATE RISK >11.0 HIGH RISK Performed By: #### L IPID, T4, TSH, FT3, CMP #### [facility] [address] [place] [address] Dr. Maggy Irving Cholesterol [Mass/Vol] 180 mg/dL Normal <=200 [facility] Comment on above: Performed By: #### L IPID, T4, TSH, FT3, CMP #### [facility] [address] [place] [address] Dr. Maggy Irving Cholesterol in HDL [Mass/Vol] 37 mg/dL Critically low 40-60 [facility] Comment on above: Performed By: #### L IPID, T4, TSH, FT3, CMP #### [facility] [address] [place] [address] Dr. Maggy Irving Cholesterol in LDL [Mass/Vol] 95.2 mg/dL Normal [facility] Comment on above: Performed By: #### L IPID, T4, TSH, FT3, CMP #### [facility] [address] [place] [address] Dr. Maggy Irving Cholesterol.total/Ch olesterol in HDL [Mass ratio] 4.9 {ratio} Normal [facility] Comment on above: Performed By: #### L IPID, T4, TSH, FT3, CMP #### [facility] [address] [place] [address] Dr. Maggy Irving HDL NORMAL > or = 60 mg/dl - LO W CARDIOVASCULAR RISK <40 mg/dl - HIGH CARDIOVASCULAR RISK Normal [facility] Comment on above: Performed By: #### L IPID, T4, TSH, FT3, CMP #### [facility] [address] [place] [address] Dr. Maggy Irving LDL CALC NORMAL SEE BELOW Normal [facility] Comment on above: Result Comment: <100 mg/dl OPTIMAL 100 - 129 mg/dl NEAR OR ABOVE OPTIMAL 130 - 159 mg/dl BORDERLINE HIGH 160 - 189 mg/dl HIGH >190 mg/dl VERY HIGH Performed By: #### L IPID, T4, TSH, FT3, CMP #### [facility] [address] [address] [address] Maggy Irving Triglyceride [Mass/Vol] 239 mg/dL Critically high <=150 [facility] Comment on above: Performed By: #### L IPID, T4, TSH, FT3, CMP #### [facility] [address] [place] [address] Dr. Maggy Irving VLDL CALC 47.8 mg/dL Normal [facility] Comment on above: Performed By: #### L IPID, T4, TSH, FT3, CMP #### [facility] [address] [place] [address] Dr. Maggy Irving PROF 14(COMP METB)on 023 Albumin [Mass/Vol] 3.8 g/dL Normal 3.4-5.0 [facility] Comment on above: Performed By: #### L IPID, T4, TSH, FT3, CMP #### [facility] [address] [place] [address] Dr. Maggy Irving Albumin/Globulin [Mass ratio] 1.1 {ratio} Normal [facility] Comment on above: Performed By: #### L IPID, T4, TSH, FT3, CMP #### [facility] [address] [place] [address] Dr. Maggy Irving ALP [Catalytic activity/Vol] 53 U/L Normal 46-116 [facility] Comment on above: Performed By: #### L IPID, T4, TSH, FT3, CMP #### [facility] [address] [place] [address] Dr. Maggy Irving ALT [Catalytic activity/Vol] 43 U/L Normal 16-63 [facility] Comment on above: Performed By: #### L IPID, T4, TSH, FT3, CMP #### [facility] [address] [place] [address] Dr. Maggy Irving Anion gap [Moles/Vol] 12.2 mmol/L Normal [facility] Comment on above: Performed By: #### L IPID, T4, TSH, FT3, CMP #### [facility] [address] [place] [address] Dr. Maggy Irving AST [Catalytic activity/Vol] 22 U/L Normal 15-37 [facility] Comment on above: Performed By: #### L IPID, T4, TSH, FT3, CMP #### [facility] [address] [place] [address] Dr. Maggy Irving Bilirubin [Mass/Vol] 0.6 mg/dL Normal 0.2-1.0 [facility] Comment on above: Performed By: #### L IPID, T4, TSH, FT3, CMP #### [facility] [address] [place] [address] Dr. Maggy Irving Calcium [Mass/Vol] 8.9 mg/dL Normal 8.5-10.1 [facility] Comment on above: Performed By: #### L IPID, T4, TSH, FT3, CMP #### [facility] [address] [place] [address] Dr. Maggy Irving Chloride [Moles/Vol] 104 mmol/L Normal 98-107 [facility] Comment on above: Performed By: #### L IPID, T4, TSH, FT3, CMP #### [facility] [address] [place] [address] Dr. Maggy Irving CO2 [Moles/Vol] 28.8 mmol/L Normal 21.0-32.0 [facility] Comment on above: Performed By: #### L IPID, T4, TSH, FT3, CMP #### [facility] [address] [place] [address] Dr. Maggy Irving Creatinine [Mass/Vol] 0.83 mg/dL Normal 0.70-1.30 [facility] Comment on above: Performed By: #### L IPID, T4, TSH, FT3, CMP #### [facility] [address] [address] [address] Maggy Irving EGFR-AF CYMRO >60 Normal >=60 [facility] Comment on above: Performed By: #### L IPID, T4, TSH, FT3, CMP #### [facility] [address] [place] [address] Dr. Maggy Irving EGFR-NON AF CYMRO >60 Normal >=60 [facility] Comment on above: Performed By: #### L IPID, T4, TSH, FT3, CMP #### [facility] [address] [place] [address] Dr. Maggy Irving Globulin (S) [Mass/Vol] 3.4 g/dL Normal [facility] Comment on above: Performed By: #### L IPID, T4, TSH, FT3, CMP #### [facility] [address] [place] [address] Dr. Maggy Irving Glucose [Mass/Vol] 116 mg/dL Critically high 74-106 [facility] Comment on above: Performed By: #### L IPID, T4, TSH, FT3, CMP #### [facility] [address] [place] [address] Dr. Maggy Irving Potassium [Moles/Vol] 4.0 mmol/L Normal 3.5-5.1 [facility] Comment on above: Performed By: #### L IPID, T4, TSH, FT3, CMP #### [facility] [address] [address] [address] Maggy Irving Protein [Mass/Vol] 7.2 g/dL Normal 6.4-8.2 [facility] Comment on above: Performed By: #### L IPID, T4, TSH, FT3, CMP #### [facility] [address] [place] [address] Dr. Maggy Irving Sodium [Moles/Vol] 141 mmol/L Normal 136-145 [facility] Comment on above: Performed By: #### L IPID, T4, TSH, FT3, CMP #### [facility] [address] [place] [address] Dr. Maggy Irving Urea nitrogen [Mass/Vol] 17.0 mg/dL Normal 7.0-18.0 [facility] Comment on above: Performed By: #### L IPID, T4, TSH, FT3, CMP #### [facility] [address] [place] [address] Dr. Maggy Irving Urea nitrogen/Creatinine [Mass ratio] 20.5 mg/mg Normal [facility] Comment on above: Performed By: #### L IPID, T4, TSH, FT3, CMP #### [facility] [address] [place] [address] Dr. Maggy Irving TSHon 12-07-2022 TSH 5.531 uIU/mL Critically high 0.358-3.740 [facility] Comment on above: Performed By: #### L IPID, T4, TSH, FT3, CMP #### [facility] [address] [place] [address] Dr. Maggy Irving TESTOSTERONE, TOTALon 2021 Testosterone [Mass/Vol] 390 ng/dL Normal 264-916 [facility] Comment on above: Result Comment: Adul t male reference interval is based on a population of healthy nonobese males (BMI <30) between 19 and 39 years old. Reynaldo et.al. JCEM 2017,102;4351-6010. PMID: [id number]. Performed By: #### L IPID, T4, TSH, FT3, CMP #### [facility] [address] [place] [address] Dr. Maggy Irving CBC AUTO DIFFon 04-09-2022 BASO # 0.0 103/ul Normal 0.0-0.1 [facility] Comment on above: Performed By: #### L IPID, T4, TSH, FT3, CMP #### [facility] [address] [place] [address] Dr. Maggy Irving Basophils/100 WBC (Bld) 0.2 % Normal 0.2-2.0 [facility] Comment on above: Performed By: #### L IPID, T4, TSH, FT3, CMP #### [facility] [address] [place] [address] Dr. Maggy Irving EO # 0.2 103/ul Normal 0.0-0.7 [facility] Comment on above: Performed By: #### L IPID, T4, TSH, FT3, CMP #### [facility] [address] [place] [address] Dr. Maggy Irving Eosinophils/100 WBC (Bld) 3.1 % Normal 0.9-7.0 [facility] Comment on above: Performed By: #### L IPID, T4, TSH, FT3, CMP #### [facility] [address] [place] [address] Dr. Maggy Irving Erythrocyte distribution width (RBC) [Ratio] 12.3 % Normal 11.0-15.0 [facility] Comment on above: Performed By: #### L IPID, T4, TSH, FT3, CMP #### [facility] [address] [place] [address] Dr. Maggy Irving Hematocrit (Bld) [Volume fraction] 41.6 % Critically low 42.0-54.0 [facility] Comment on above: Performed By: #### L IPID, T4, TSH, FT3, CMP #### [facility] [address] [place] [address] Dr. Maggy Irving Hemoglobin (Bld) [Mass/Vol] 14.6 g/dL Normal 14.0-18.0 [facility] Comment on above: Performed By: #### L IPID, T4, TSH, FT3, CMP #### [facility] [address] [place] [address] Dr. Maggy Irvnig IG # 0.02 10e3/ul Normal 0.00-0.03 [facility] Comment on above: Performed By: #### L IPID, T4, TSH, FT3, CMP #### [facility] [address] [place] [address] Dr. Maggy Irving IG % 0.4 % Normal 0.0-0.5 [facility] Comment on above: Performed By: #### L IPID, T4, TSH, FT3, CMP #### [facility] [address] [place] [address] Dr. Maggy Irving LYMPH # 0.9 103/ul Critically low 1.2-3.8 [facility] Comment on above: Performed By: #### L IPID, T4, TSH, FT3, CMP #### [facility] [address] [place] [address] Dr. Maggy Irving Lymphocytes/100 WBC (Bld) 17.9 % Critically low 20.5-60.0 [facility] Comment on above: Performed By: #### L IPID, T4, TSH, FT3, CMP #### [facility] [address] [place] [address] Dr. Maggy Irving MANUAL DIFF REQ NO Normal [facility] Comment on above: Performed By: #### L IPID, T4, TSH, FT3, CMP #### [facility] [address] [place] [address] Dr. Maggy Irving MCH (RBC) [Entitic mass] 31.1 pg Normal 25.9-34.0 [facility] Comment on above: Performed By: #### L IPID, T4, TSH, FT3, CMP #### [facility] [address] [place] [address] Dr. Maggy Irving MCHC (RBC) [Mass/Vol] 35.1 g/dL Normal 29.9-35.2 [facility] Comment on above: Performed By: #### L IPID, T4, TSH, FT3, CMP #### [facility] [address] [place] [address] Dr. Maggy Irving MCV (RBC) [Entitic vol] 88.5 fL Normal 80.0-94.0 [facility] Comment on above: Performed By: #### L IPID, T4, TSH, FT3, CMP #### [facility] [address] [place] [address] Dr. Maggy Irving MONO # 0.4 103/ul Normal 0.3-0.8 [facility] Comment on above: Performed By: #### L IPID, T4, TSH, FT3, CMP #### [facility] [address] [place] [address] Dr. Maggy Irving Monocytes/100 WBC (Bld) 8.7 % Normal 1.7-12.0 [facility] Comment on above: Performed By: #### L IPID, T4, TSH, FT3, CMP #### [facility] [address] [place] [address] Dr. Maggy Irving NEUT # 3.4 103/ul Normal 1.4-6.5 [facility] Comment on above: Performed By: #### L IPID, T4, TSH, FT3, CMP #### [facility] [address] [place] [address] Dr. Maggy Irving Neutrophils/100 WBC (Bld) 69.7 % Normal 43.0-75.0 [facility] Comment on above: Performed By: #### L IPID, T4, TSH, FT3, CMP #### [facility] [address] [place] [address] Dr. Maggy Irving Platelet mean volume (Bld) [Entitic vol] 9.9 fL Normal 9.5-13.5 [facility] Comment on above: Performed By: #### L IPID, T4, TSH, FT3, CMP #### [facility] [address] [place] [address] Dr. Maggy Irving PLT 121 103/ul Critically low 150-450 [facility] Comment on above: Performed By: #### L IPID, T4, TSH, FT3, CMP #### [facility] [address] [place] [address] Dr. Maggy Irving RBC 4.70 106/ul Normal 4.70-6.10 [facility] Comment on above: Performed By: #### L IPID, T4, TSH, FT3, CMP #### [facility] [address] [place] [address] Dr. Maggy Irving WBC 4.8 103/ul Normal 4.0-11.0 [facility] Comment on above: Performed By: #### L IPID, T4, TSH, FT3, CMP #### [facility] [address] [address] [address] Maggy Irving FREE T3on 04-09-2022 FREE T3 3.15 pg/mlL Normal 2.18-3.98 [facility] Comment on above: Performed By: #### L IPID, T4, TSH, FT3, CMP #### [facility] [address] [address] [address] Maggy Irving GLYCOHEMOGLOBIN A1Con 2021 ADA RECOMMENDATION SEE BELOW Normal [facility] Comment on above: Result Comment: ADA RECOMMENDED LIMIT 4.0 - 6.0 ADA THERAPEUTIC TARGET < 7.0 ACTION SUGGESTED > 7.0 Performed By: #### L IPID, T4, TSH, FT3, CMP #### [facility] [address] [place] [address] Dr. Maggy Irving Glucose [Mass/Vol] 123 mg/dL Normal [facility] Comment on above: Performed By: #### L IPID, T4, TSH, FT3, CMP #### [facility] [address] [place] [address] Dr. Maggy Irving HbA1c (Bld) [Mass fraction] 5.9 % Normal 4.5-6.2 [facility] Comment on above: Performed By: #### L IPID, T4, TSH, FT3, CMP #### [facility] [address] [place] [address] Dr. Maggy Irving LIPID PROFILEon 04-09-2022 CHOL-HDL RATIO NORM SEE BELOW Normal [facility] Comment on above: Result Comment: 3.3 - 4.4 LOW RISK 4.4 - 7.1 AVERAGE RISK 7.1 - 11.0 MODERATE RISK >11.0 HIGH RISK Performed By: #### L IPID, T4, TSH, FT3, CMP #### [facility] [address] [place] [address] Dr. Maggy Irving Cholesterol [Mass/Vol] 174 mg/dL Normal <=200 [facility] Comment on above: Performed By: #### L IPID, T4, TSH, FT3, CMP #### [facility] [address] [address] [address] Maggy Irving Cholesterol in HDL [Mass/Vol] 36 mg/dL Critically low 40-60 [facility] Comment on above: Performed By: #### L IPID, T4, TSH, FT3, CMP #### [facility] [address] [address] [address] Maggy Irving Cholesterol in LDL [Mass/Vol] 114.4 mg/dL Normal [facility] Comment on above: Performed By: #### L IPID, T4, TSH, FT3, CMP #### [facility] [address] [address] [address] Maggy Irving Cholesterol.total/Ch olesterol in HDL [Mass ratio] 4.8 {ratio} Normal [facility] Comment on above: Performed By: #### L IPID, T4, TSH, FT3, CMP #### [facility] [address] [place] [address] Dr. Maggy Irving HDL NORMAL > or = 60 mg/dl - LO W CARDIOVASCULAR RISK <40 mg/dl - HIGH CARDIOVASCULAR RISK Normal [facility] Comment on above: Performed By: #### L IPID, T4, TSH, FT3, CMP #### [facility] [address] [address] [address] Maggy Irving LDL CALC NORMAL SEE BELOW Normal [facility] Comment on above: Result Comment: <100 mg/dl OPTIMAL 100 - 129 mg/dl NEAR OR ABOVE OPTIMAL 130 - 159 mg/dl BORDERLINE HIGH 160 - 189 mg/dl HIGH >190 mg/dl VERY HIGH Performed By: #### L IPID, T4, TSH, FT3, CMP #### [facility] [address] [address] [address] Maggy Irving Triglyceride [Mass/Vol] 118 mg/dL Normal <=150 [facility] Comment on above: Performed By: #### L IPID, T4, TSH, FT3, CMP #### [facility] [address] [address] [address] Maggy Irving VLDL CALC 23.6 mg/dL Normal [facility] Comment on above: Performed By: #### L IPID, T4, TSH, FT3, CMP #### [facility] [address] [place] [address] Dr. Maggy Irving OCC BLD IMMUNO SCREENon 03-20 OCCULT BLOOD Negative Normal NEGATIVE [facility] Comment on above: Performed By: #### O BSCRN #### [facility] [address] [place] [address] Dr. Maggy Irving PROF 14(COMP METB)on 022 Albumin [Mass/Vol] 3.6 g/dL Normal 3.4-5.0 [facility] Comment on above: Performed By: #### L IPID, T4, TSH, FT3, CMP #### [facility] [address] [place] [address] Dr. Maggy Irving Albumin/Globulin [Mass ratio] 1.1 {ratio} Normal [facility] Comment on above: Performed By: #### L IPID, T4, TSH, FT3, CMP #### [facility] [address] [place] [address] Dr. Maggy Irving ALP [Catalytic activity/Vol] 47 U/L Normal 46-116 [facility] Comment on above: Performed By: #### L IPID, T4, TSH, FT3, CMP #### [facility] [address] [place] [address] Dr. Maggy Irving ALT [Catalytic activity/Vol] 31 U/L Normal 16-63 [facility] Comment on above: Performed By: #### L IPID, T4, TSH, FT3, CMP #### [facility] [address] [place] [address] Dr. Maggy Irving Anion gap [Moles/Vol] 10.2 mmol/L Normal [facility] Comment on above: Performed By: #### L IPID, T4, TSH, FT3, CMP #### [facility] [address] [place] [address] Dr. Maggy Irving AST [Catalytic activity/Vol] 17 U/L Normal 15-37 [facility] Comment on above: Performed By: #### L IPID, T4, TSH, FT3, CMP #### [facility] [address] [place] [address] Dr. Maggy Irving Bilirubin [Mass/Vol] 0.6 mg/dL Normal 0.2-1.0 [facility] Comment on above: Performed By: #### L IPID, T4, TSH, FT3, CMP #### [facility] [address] [place] [address] Dr. Maggy Irving Calcium [Mass/Vol] 8.1 mg/dL Critically low 8.5-10.1 [facility] Comment on above: Performed By: #### L IPID, T4, TSH, FT3, CMP #### [facility] [address] [place] [address] Dr. Maggy Irving Chloride [Moles/Vol] 105 mmol/L Normal 98-107 [facility] Comment on above: Performed By: #### L IPID, T4, TSH, FT3, CMP #### [facility] [address] [place] [address] Dr. Maggy Irving CO2 [Moles/Vol] 29.6 mmol/L Normal 21.0-32.0 [facility] Comment on above: Performed By: #### L IPID, T4, TSH, FT3, CMP #### [facility] [address] [place] [address] Dr. Maggy Irving Creatinine [Mass/Vol] 0.89 mg/dL Normal 0.70-1.30 [facility] Comment on above: Performed By: #### L IPID, T4, TSH, FT3, CMP #### [facility] [address] [place] [address] Dr. Maggy Irving EGFR-AF CYMRO >60 Normal >=60 [facility] Comment on above: Performed By: #### L IPID, T4, TSH, FT3, CMP #### [facility] [address] [place] [address] Dr. Maggy Irving EGFR-NON AF CYMRO >60 Normal >=60 [facility] Comment on above: Performed By: #### L IPID, T4, TSH, FT3, CMP #### [facility] [address] [address] [address] Maggy Irving Globulin (S) [Mass/Vol] 3.2 g/dL Normal [facility] Comment on above: Performed By: #### L IPID, T4, TSH, FT3, CMP #### [facility] [address] [place] [address] Dr. Maggy Irving Glucose [Mass/Vol] 110 mg/dL Critically high 74-106 [facility] Comment on above: Performed By: #### L IPID, T4, TSH, FT3, CMP #### [facility] [address] [place] [address] Dr. Maggy Irving Potassium [Moles/Vol] 3.8 mmol/L Normal 3.5-5.1 [facility] Comment on above: Performed By: #### L IPID, T4, TSH, FT3, CMP #### [facility] [address] [place] [address] Dr. Maggy Irving Protein [Mass/Vol] 6.8 g/dL Normal 6.4-8.2 [facility] Comment on above: Performed By: #### L IPID, T4, TSH, FT3, CMP #### [facility] [address] [place] [address] Dr. Maggy Irving Sodium [Moles/Vol] 141 mmol/L Normal 136-145 [facility] Comment on above: Performed By: #### L IPID, T4, TSH, FT3, CMP #### [facility] [address] [place] [address] Dr. Maggy Irving Urea nitrogen [Mass/Vol] 17.0 mg/dL Normal 7.0-18.0 [facility] Comment on above: Performed By: #### L IPID, T4, TSH, FT3, CMP #### [facility] [address] [place] [address] Dr. Maggy Irving Urea nitrogen/Creatinine [Mass ratio] 19.1 mg/mg Normal [facility] Comment on above: Performed By: #### L IPID, T4, TSH, FT3, CMP #### [facility] [address] [place], [place] [id number] Dr. Maggy Irving T4on 04-09-2022 T4 [Mass/Vol] 7.90 ug/dL Normal 4.50-12.10 [facility] Comment on above: Performed By: #### L IPID, T4, TSH, FT3, CMP #### [facility] [address] [address] [address] Maggy Irving TSHon 04-09-2022 TSH 4.949 uIU/mL Critically high 0.358-3.740 [facility] Comment on above: Performed By: #### L IPID, T4, TSH, FT3, CMP #### [facility] [address] [address] [address] Maggy Irving Vital Signs Date Time Vital Sign Value Performing Clinician Faci lity 04-06-2024 09:43-0400 Body height 177.8 cm [facility] 04-06-2024 09:43-0400 Body mass index (BMI) [Ratio] 34.4 kg/m2 [facility] 04-06-2024 09:43-0400 Body temperature 98.3 [degF] [facility] 04-06-2024 09:43-0400 Body weight 109.08 kg [facility] 04-06-2024 09:43-0400 Diastolic blood pressure 78 mm[Hg] [facility] 04-06-2024 09:43-0400 Heart rate 87 /min [facility] 04-06-2024 09:43-0400 Respiratory rate 18 /min [facility] 04-06-2024 09:43-0400 SaO2% (BldA) [Mass fraction] 96 % [facility] 04-06-2024 09:43-0400 Systolic blood pressure 146 mm[Hg] [facility] Encounters Encounter Date Encounter Type Care Provider Facility Start: 04-27-2024 End: 04-27-2024 ambulatory Marcella Gross [facility] Work Phone: Start: 04-27-2024 End: 04-27-2024 Departed Referred MD Marcella Gross Work Phone: [facility] Start: 04-06-2024 End: 04-06-2024 ambulatory [facility] Work Phone: Start: 04-06-2024 End: 04-06-2024 Patient encounter procedure [facility] Work Phone: Start: 02-10-2023 End: 02-11-2023 ambulatory IVELISSE ORNELAS Facility:[facility] Start: 02-07-2023 End: 02-07-2023 ambulatory IVELISSE ORNELAS Facility:[facility] Start: 02-06-2023 Encounter for preprocedural laboratory examination IVELISSE ORNELAS [facility] Start: 01-31-2023 End: 02-01-[address] [...] L IPID, T4, TSH, FT3, CMP #### [facility] [address] [place] [address] Dr. Maggy Irving Payers Date Payer Category Payer Self-pay 1957 Medicare [id number] 1957 Unknown [id number] 1950 Unknown [id number] 2.16.84 [id number] 1952 Unknown [id number] 2.16.84 [id number] 1952 Unknown [id number] 2.16.84 [id number] 1952 Unknown [id number] 2.16.84 0.1.326316.3.579.2.593 1952 Unknown [id number] 2.16.84 [id number] 1952 Unknown [id number] 2.16.84 0.1.496314.3.579.2.593 1952 Unknown [id number] 2.16.84 0.1.041841.3.579.2.593 1952 Unknown [id number] 2.16.84 0.1.389292.3.579.2.593 1952 Unknown [id number] 2.16.84 0.1.291783.3.579.2.593 1952 Unknown [id number] 2.16.84 0.1.814897.3.579.2.593 1952 Unknown [id number] 2.16.84 0.1.638281.3.579.2.593 Medicare Medicare [id number] Unknown [id number] 2.16.8 [id number] Social History Date Type Detail Facility Tobacco smoking stat [facility] Unknown if ever smoked [facility] Work Phone: Start: 1950 Sex Assigned At Male F [facility] Clinical Note 02-07-2023 Note Date & Type [...] authenticated by: OLVIN KHANNA Date: 2023-02-07 09:41 [facility] Evaluation note Note Date & Type Note Facility Evaluation note Diagnosis Onset Date Bacterial conjunctivitis of right eye acute [facility] Work Phone: Summary Purpose Family [...] and content) DATE CREATED AUTHOR 02/25/2023 [facility] DATE CREATED AUTHOR AUTHOR'S ORGANIZ [...] BE BASED ON THE PRIMARY CLINICAL RECORDS. [facility] [employer] [facility]. provides no warranty or guarantee of the accuracy or completeness of information in this document.
== END 2024-12-05 10:28 | disposition home or self-care (01) ==
LOC: WC 10:27
PROVIDERS: PCP Family Medicine; Visit Provider Physician Assistant
DX: L97.422 Non-pressure chronic ulcer of left heel and midfoot with fat layer exposed (principal)
CPT/HCPCS: G0463

== ENCOUNTER 2025-05-06 10:08 | Outpatient (OUT) | payer MEDICARE, OTHER, SELFPAY ==
--- OUTSIDE RECORDS SUMMARY | 2025-05-06 10:22 | XMS_ITS | Clinical Summary ---
Author Organization [facility] Address [address] [place] [address] Care Team Providers Care Sales Representative Raw Fibers Name Role Phone Unavailable Primary Care Provider Unavailabl e Social History Tobacco Use Types Packs/Day Years Used Date Smoking Tobacco: Never Assessed Sex and Gender Information Value Date Recorded Sex Assigned at Not on file Legal Sex Male 6:47 PM EDT Gender Identity Not on file Sexual Orientation Not on file Last Filed Vital Signs Vital Sign Reading Time Taken Comments Blood Pressure - - Pulse - - Temperature - - Respiratory Rate - - Oxygen Saturation - - Inhaled Oxygen Concentration - - Weight 104 kg (229 lb) 09/29/2022 12:00 PM EST Height 177.8 cm (5' 10 ) 09/29/2022 12:00 PM EST Body Mass Index 32.86 09/29/2022 12:00 PM EST Plan of Treatment Not on file Insurance MEDICARE
--- OUTSIDE RECORDS SUMMARY | 2025-05-06 10:30 | XMS_ITS | CCD ---
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] Onset: 02-16-2023 Episodic Other [...] [id number] Received: 04/30/24 Status: CASS Req Num: [id number] Spec Type: Impression Subm Dr: Marcella Gross MD Tissues: PATHPER Procedures: PATHREVIEW Age/ Patient Sex Location Account Attending Physician RustySilvino Joel 74/M [place] [id number] Marcella Gross MD SPEC NUM: [id number] RECD: 04/30/24 STATUS: CASS REQ NUM: [id number] KAREN: 04/27/[address]: Marcella Gross MD ENTERED: 04/30/[address] [facility] [address]: SPEC TYPE: Impression DEPT: ALEXSANDRA Cervantes ENTERED BY: [id number] RECV BY: [id number] ORDERED: PATHREVIEW ORDERED: PATHREVIEW Pathologist Review Abnormal [...] shifted granulocytes, or granulocytic dysplasia observed CPT: 42766 -------- -------- Specimen: [id number] Received: 04/30/24 Status: CASS Moore Num: [id number] Spec Type: Impression Subm Dr: Marcella Gross MD Tissues: PATHPER Procedures: PATHREVIEW -------- Patient: Silvino Ojeda Joel [id number] (Continued) -------- Signed (signature on file) ChinAlexys Irving MD 04/30/241945 Normal [facility] CULTURE OTHERon 02-11-2023 CULTURE [...] F Trimethoprim/Sulfamet hoxazole <=10 S F Normal [facility] Comment on above: Performed By: #### L IPID, T4, TSH, FT3, CMP #### [facility] [address] [address] [address] Maggy Irving FUNGAL CULTUREon 02-09-2023 Fungus Stain Final report Normal [facility] Comment on above: Performed By: #### L IPID, T4, TSH, FT3, CMP #### [facility] [address] [address] [address] Maggy Irving Result 1 Comment Normal [facility] Comment on above: Result Comment: SUDHIR/ Calcofluor preparation: no fungus observed. Performed By: #### L IPID, T4, TSH, FT3, CMP #### [facility] [address] [address] [address] Maggy Irving ACID FAST SMEAR AND CXon Acid Fast Smear Negative Normal [facility] Comment on above: Performed By: #### A FB #### [facility] [address] [place] [address] Dr. Maggy Irving [employer] Specimen Processing Tissue Grinding [facility] Comment on above: Performed By: #### A FB #### [facility] [address] [place] [address] Dr. Maggy Irving CULTURE ANAEROBICon 02-08-20 CULTURE ANAEROBIC Isolate 1 Finegoldia magna Light growth of Normal [facility] Comment on above: Result Comment: EVID ENCE BASED PRACTICE BY [facility] HAS DEMONSTRATED THAT FINEGOLDIA SPECIES ARE ROUTINELY SUSCEPTIBLE TO PIPERACILLIN-TAZOBACTAM, CEFOXITIN, ERTAPENEM, IMIPENEM METRONIDAZOLE AND VARIABLY RESISTANT TO CLINDAMYCIN. Performed By: #### L IPID, T4, TSH, FT3, CMP #### [facility] [address] [place] [address] Dr. Maggy Irving GRAM STAINon 02-07-2023 COMMENTS NO ORGANISMS OBSERVED [facility] Comment on above: Performed By: #### G STAIN #### [facility] [address] [place] [address] Dr. Maggy Irving DIPHTHEROIDS Normal [facility] Comment on above: Performed By: #### G STAIN #### [facility] [address] [place] [address] Dr. Maggy Irving EPITHELIALS Normal [facility] Comment on above: Performed By: #### G STAIN #### [facility] [address] [address] [address] Maggy Irving FUNGAL ELEMENTS Normal [facility] Comment on above: Performed By: #### G STAIN #### [facility] [address] [address] [address] Maggy Irving GRAM NEG BACILLI Normal [facility] Comment on above: Performed By: #### G STAIN #### [facility] [address] [address] [address] Maggy MENDOZA NEG DIPPLOCOCCI Normal [facility] Comment on above: Performed By: #### G STAIN #### [facility] [address] [place] [address] Dr. Maggy Irving GRAM POS BACILLI [facility] Comment on above: Performed By: #### G STAIN #### [facility] [address] [place] [address] Dr. Maggy Irving GRAM POSITIVE COCCI Normal [facility] Comment on above: Performed By: #### G STAIN #### [facility] [address] [address] [address] Maggy Irving GRAM STAIN SOURCE 5th Metatarsal Bone [facility] Comment on above: Performed By: #### G STAIN #### [facility] [address] [place] [address] Dr. Maggy Irving GS_DIPTH [facility] Comment on above: Performed By: #### G STAIN #### [facility] [address] [place] [address] Dr. Maggy Irving WBC RARE Normal [facility] Comment on above: Performed By: #### G STAIN #### [facility] [address] [place] [address] Dr. Maggy Irving POINT OF CARE GLUCOSEon 01-18 Glucose [Mass/Vol] 114 mg/dL Critically high 74-106 [facility] Comment on above: Performed By: #### P OCGLUC #### [facility] [address] [place] [address] Dr. Maggy Irving Glucose [Mass/Vol] 122 mg/dL Critically high 74-106 [facility] Comment on above: Performed By: #### P OCGLUC #### [facility] [address] [place] [address] Dr. Maggy Irving PROF CHEM 8 (BAS METB)on Anion gap [Moles/Vol] 12.0 mmol/L Normal [facility] Comment on above: Performed By: #### L IPID, T4, TSH, FT3, CMP #### [facility] [address] [address] [address] Maggy Irving Calcium [Mass/Vol] 8.7 mg/dL Normal 8.5-10.1 [facility] Comment on above: Performed By: #### L IPID, T4, TSH, FT3, CMP #### [facility] [address] [place] [address] Dr. Maggy Irving Chloride [Moles/Vol] 104 mmol/L Normal 98-107 [facility] Comment on above: Performed By: #### L IPID, T4, TSH, FT3, CMP #### [facility] [address] [address] [address] Maggy Irving CO2 [Moles/Vol] 28.1 mmol/L Normal 21.0-32.0 [facility] Comment on above: Performed By: #### L IPID, T4, TSH, FT3, CMP #### [facility] [address] [place] [address] Dr. Maggy Irving Creatinine [Mass/Vol] 0.80 mg/dL Normal 0.70-1.30 [facility] Comment on above: Performed By: #### L IPID, T4, TSH, FT3, CMP #### [facility] [address] [place] [address] Dr. Maggy Irving EGFR-AF GHANAIAN >60 Normal >=60 [facility] Comment on above: Performed By: #### L IPID, T4, TSH, FT3, CMP #### [facility] [address] [place] [address] Dr. Maggy Irving EGFR-NON AF GHANAIAN >60 Normal >=60 [facility] Comment on above: Performed By: #### L IPID, T4, TSH, FT3, CMP #### [facility] [address] [place] [address] Dr. Maggy Irving Glucose [Mass/Vol] 129 mg/dL Critically high 74-106 [facility] Comment on above: Performed By: #### L IPID, T4, TSH, FT3, CMP #### [facility] [address] [place] [address] Dr. Maggy Irving Potassium [Moles/Vol] 4.1 mmol/L Normal 3.5-5.1 [facility] Comment on above: Performed By: #### L IPID, T4, TSH, FT3, CMP #### [facility] [address] [place] [address] Dr. Maggy Irving Sodium [Moles/Vol] 140 mmol/L Normal 136-145 [facility] Comment on above: Performed By: #### L IPID, T4, TSH, FT3, CMP #### [facility] [address] [place] [address] Dr. Maggy Irving Urea nitrogen [Mass/Vol] 20.0 mg/dL Critically high 7.0-18.0 [facility] Comment on above: Performed By: #### L IPID, T4, TSH, FT3, CMP #### [facility] [address] [place] [address] Dr. Maggy Irving Urea nitrogen/Creatinine [Mass ratio] 25.0 mg/mg Normal [facility] Comment on above: Performed By: #### L IPID, T4, TSH, FT3, CMP #### [facility] [address] [place] [address] Dr. Maggy Irving FREE T3on 01-07-2023 FREE T3 3.24 pg/mlL Normal 2.18-3.98 [facility] Comment on above: Performed By: #### L IPID, T4, TSH, FT3, CMP #### [facility] [address] [place] [address] Dr. Maggy Irving T4on 01-07-2023 T4 [Mass/Vol] 9.10 ug/dL Normal 4.50-12.10 [facility] Comment on above: Performed By: #### L IPID, T4, TSH, FT3, CMP #### [facility] [address] [place], [place] [address] Dr. Maggy Irving TSHon 01-07-2023 TSH 5.957 uIU/mL Critically high 0.358-3.740 [facility] Comment on above: Performed By: #### L IPID, T4, TSH, FT3, CMP #### [facility] [address] [place], [place] [address] Dr. Maggy Irving NM STRESS/REST MULTIon 01-03 NM STRESS/REST MULTI Patient: SILVINO OJEDA Exam Date: 01/03/2023 : 1950 Gender:M Ordering : DR MARCELLA GROSS . Admission #: [id number] Family : Order #: [id number] CLICK HERE TO VIEW EXAM RADIOLOGY REPORT [...] at 07:45 Normal [facility] ECHOCARDIO M/2D COMPLETEon 0 12-21-2022 ECHOCARDIO M/2D COMPLETE Patient: SILVINO OJEDA Exam Date: 12/21/2022 : 1950 Gender:M Ordering : DR MARCELLA GROSS . Admission #: [id number] Family : Order #: [id number] CLICK HERE TO VIEW EXAM ECHOCARDIOGRAM REPORT [...] 12/23/2022 at 18:05 Normal [facility] BNPon 12-07-2022 Natriuretic peptide B (Bld) [Mass/Vol] 37.0 pg/mL Normal <=900.0 [facility] Comment on above: Performed By: #### L IPID, T4, TSH, FT3, CMP #### [facility] [address] [place] [address] Dr. Maggy Irving CBC AUTO DIFFon 12-07-2022 BASO # 0.0 103/ul Normal 0.0-0.1 [facility] Comment on above: Performed By: #### L IPID, T4, TSH, FT3, CMP #### [facility] [address] [place] [address] Dr. Maggy Irving Basophils/100 WBC (Bld) 0.2 % Normal 0.2-2.0 [facility] Comment on above: Performed By: #### L IPID, T4, TSH, FT3, CMP #### [facility] [address] [place] [address] Dr. Maggy Irving EO # 0.2 103/ul Normal 0.0-0.7 [facility] Comment on above: Performed By: #### L IPID, T4, TSH, FT3, CMP #### [facility] [address] [place] [address] Dr. Maggy Irving Eosinophils/100 WBC (Bld) 3.7 % Normal 0.9-7.0 [facility] Comment on above: Performed By: #### L IPID, T4, TSH, FT3, CMP #### [facility] [address] [place] [address] Dr. Maggy Irving Erythrocyte distribution width (RBC) [Ratio] 11.9 % Normal 11.0-15.0 [facility] Comment on above: Performed By: #### L IPID, T4, TSH, FT3, CMP #### [facility] [address] [place] [address] Dr. Maggy Irving Hematocrit (Bld) [Volume fraction] 39.7 % Critically low 42.0-54.0 [facility] Comment on above: Performed By: #### L IPID, T4, TSH, FT3, CMP #### [facility] [address] [place] [address] Dr. Maggy Irving Hemoglobin (Bld) [Mass/Vol] 14.0 g/dL Normal 14.0-18.0 [facility] Comment on above: Performed By: #### L IPID, T4, TSH, FT3, CMP #### [facility] [address] [place] [address] Dr. Maggy Irving IG # 0.02 10e3/ul Normal 0.00-0.03 [facility] Comment on above: Performed By: #### L IPID, T4, TSH, FT3, CMP #### [facility] [address] [place] [address] Dr. Maggy Irving IG % 0.5 % Normal 0.0-0.5 [facility] Comment on above: Performed By: #### L IPID, T4, TSH, FT3, CMP #### [facility] [address] [place] [address] Dr. Maggy Irving LYMPH # 0.9 103/ul Critically low 1.2-3.8 [facility] Comment on above: Performed By: #### L IPID, T4, TSH, FT3, CMP #### [facility] [address] [place] [address] Dr. Maggy Irving Lymphocytes/100 WBC (Bld) 21.1 % Normal 20.5-60.0 [facility] Comment on above: Performed By: #### L IPID, T4, TSH, FT3, CMP #### [facility] [address] [place] [address] Dr. Maggy Irving MANUAL DIFF REQ NO Normal [facility] Comment on above: Performed By: #### L IPID, T4, TSH, FT3, CMP #### [facility] [address] [place] [address] Dr. Maggy Irving MCH (RBC) [Entitic mass] 30.5 pg Normal 25.9-34.0 [facility] Comment on above: Performed By: #### L IPID, T4, TSH, FT3, CMP #### [facility] [address] [place] [address] Dr. Maggy Irving MCHC (RBC) [Mass/Vol] 35.3 g/dL Critically high 29.9-35.2 [facility] Comment on above: Performed By: #### L IPID, T4, TSH, FT3, CMP #### [facility] [address] [place] [address] Dr. Maggy Irving MCV (RBC) [Entitic vol] 86.5 fL Normal 80.0-94.0 [facility] Comment on above: Performed By: #### L IPID, T4, TSH, FT3, CMP #### [facility] [address] [place] [address] Dr. Maggy Irving MONO # 0.4 103/ul Normal 0.3-0.8 [facility] Comment on above: Performed By: #### L IPID, T4, TSH, FT3, CMP #### [facility] [address] [place] [address] Dr. Maggy Irving Monocytes/100 WBC (Bld) 8.7 % Normal 1.7-12.0 [facility] Comment on above: Performed By: #### L IPID, T4, TSH, FT3, CMP #### [facility] [address] [place] [address] Dr. Maggy Irving NEUT # 2.9 103/ul Normal 1.4-6.5 [facility] Comment on above: Performed By: #### L IPID, T4, TSH, FT3, CMP #### [facility] [address] [place] [address] Dr. Maggy Irving Neutrophils/100 WBC (Bld) 65.8 % Normal 43.0-75.0 [facility] Comment on above: Performed By: #### L IPID, T4, TSH, FT3, CMP #### [facility] [address] [place] [address] Dr. Maggy Irving Platelet mean volume (Bld) [Entitic vol] 9.9 fL Normal 9.5-13.5 [facility] Comment on above: Performed By: #### L IPID, T4, TSH, FT3, CMP #### [facility] [address] [address] [address] Maggy Irving PLT 128 103/ul Critically low 150-450 [facility] Comment on above: Performed By: #### L IPID, T4, TSH, FT3, CMP #### [facility] [address] [address] [address] Maggy Irving RBC 4.59 106/ul Critically low 4.70-6.10 [facility] Comment on above: Performed By: #### L IPID, T4, TSH, FT3, CMP #### [facility] [address] [address] [address] Maggy Irving WBC 4.4 103/ul Normal 4.0-11.0 [facility] Comment on above: Performed By: #### L IPID, T4, TSH, FT3, CMP #### [facility] [address] [place] [address] Dr. Maggy Irving FREE THYROXINE INDEX T7on FTI 2.72 Normal 1.30-4.50 [facility] Comment on above: Performed By: #### L IPID, T4, TSH, FT3, CMP #### [facility] [address] [place] [address] Dr. Maggy Irving T3U 34.0 % Normal 33.0-40.0 [facility] Comment on above: Performed By: #### L IPID, T4, TSH, FT3, CMP #### [facility] [address] [place] [address] Dr. Maggy Irving T4 [Mass/Vol] 8.00 ug/dL Normal 4.50-12.10 [facility] Comment on above: Performed By: #### L IPID, T4, TSH, FT3, CMP #### [facility] [address] [place] [address] Dr. Maggy Irving IRONon 12-07-2022 Iron [Mass/Vol] 134.0 ug/dL Normal 65.0-175.0 [facility] Comment on above: Performed By: #### L IPID, T4, TSH, FT3, CMP #### [facility] [address] [place] [address] Dr. Maggy Irving LIPID PROFILEon 12-07-2022 CHOL-HDL RATIO NORM SEE BELOW Normal [facility] Comment on above: Result Comment: 3.3 - 4.4 LOW RISK 4.4 - 7.1 AVERAGE RISK 7.1 - 11.0 MODERATE RISK >11.0 HIGH RISK Performed By: #### L IPID, T4, TSH, FT3, CMP #### [facility] [address] [place] [address] Dr. Maggy Irving Cholesterol [Mass/Vol] 180 mg/dL Normal <=200 [facility] Comment on above: Performed By: #### L IPID, T4, TSH, FT3, CMP #### [facility] [address] [place] [address] Dr. Maggy Irving Cholesterol in HDL [Mass/Vol] 37 mg/dL Critically low 40-60 [facility] Comment on above: Performed By: #### L IPID, T4, TSH, FT3, CMP #### [facility] [address] [place] [address] Dr. Maggy Irving Cholesterol in LDL [Mass/Vol] 95.2 mg/dL Normal [facility] Comment on above: Performed By: #### L IPID, T4, TSH, FT3, CMP #### [facility] [address] [place] [address] Dr. Maggy Irving Cholesterol.total/Ch olesterol in HDL [Mass ratio] 4.9 {ratio} Normal [facility] Comment on above: Performed By: #### L IPID, T4, TSH, FT3, CMP #### [facility] [address] [place] [address] Dr. Maggy Irving HDL NORMAL > or = 60 mg/dl - LO W CARDIOVASCULAR RISK <40 mg/dl - HIGH CARDIOVASCULAR RISK Normal [facility] Comment on above: Performed By: #### L IPID, T4, TSH, FT3, CMP #### [facility] [address] [place] [address] Dr. Maggy Irving LDL CALC NORMAL SEE BELOW Normal [facility] Comment on above: Result Comment: <100 mg/dl OPTIMAL 100 - 129 mg/dl NEAR OR ABOVE OPTIMAL 130 - 159 mg/dl BORDERLINE HIGH 160 - 189 mg/dl HIGH >190 mg/dl VERY HIGH Performed By: #### L IPID, T4, TSH, FT3, CMP #### [facility] [address] [address] [address] Maggy Irving Triglyceride [Mass/Vol] 239 mg/dL Critically high <=150 [facility] Comment on above: Performed By: #### L IPID, T4, TSH, FT3, CMP #### [facility] [address] [place] [address] Dr. Maggy Irving VLDL CALC 47.8 mg/dL Normal [facility] Comment on above: Performed By: #### L IPID, T4, TSH, FT3, CMP #### [facility] [address] [place] [address] Dr. Maggy Irving PROF 14(COMP METB)on 023 Albumin [Mass/Vol] 3.8 g/dL Normal 3.4-5.0 [facility] Comment on above: Performed By: #### L IPID, T4, TSH, FT3, CMP #### [facility] [address] [place] [address] Dr. Maggy Irving Albumin/Globulin [Mass ratio] 1.1 {ratio} Normal [facility] Comment on above: Performed By: #### L IPID, T4, TSH, FT3, CMP #### [facility] [address] [place] [address] Dr. Maggy Irving ALP [Catalytic activity/Vol] 53 U/L Normal 46-116 [facility] Comment on above: Performed By: #### L IPID, T4, TSH, FT3, CMP #### [facility] [address] [place] [address] Dr. Maggy Irving ALT [Catalytic activity/Vol] 43 U/L Normal 16-63 [facility] Comment on above: Performed By: #### L IPID, T4, TSH, FT3, CMP #### [facility] [address] [place] [address] Dr. Maggy Irving Anion gap [Moles/Vol] 12.2 mmol/L Normal [facility] Comment on above: Performed By: #### L IPID, T4, TSH, FT3, CMP #### [facility] [address] [place] [address] Dr. Maggy Irving AST [Catalytic activity/Vol] 22 U/L Normal 15-37 [facility] Comment on above: Performed By: #### L IPID, T4, TSH, FT3, CMP #### [facility] [address] [place] [address] Dr. Maggy Irving Bilirubin [Mass/Vol] 0.6 mg/dL Normal 0.2-1.0 [facility] Comment on above: Performed By: #### L IPID, T4, TSH, FT3, CMP #### [facility] [address] [place] [address] Dr. Maggy Irving Calcium [Mass/Vol] 8.9 mg/dL Normal 8.5-10.1 [facility] Comment on above: Performed By: #### L IPID, T4, TSH, FT3, CMP #### [facility] [address] [place] [address] Dr. Maggy Irving Chloride [Moles/Vol] 104 mmol/L Normal 98-107 [facility] Comment on above: Performed By: #### L IPID, T4, TSH, FT3, CMP #### [facility] [address] [place] [address] Dr. Maggy Irving CO2 [Moles/Vol] 28.8 mmol/L Normal 21.0-32.0 [facility] Comment on above: Performed By: #### L IPID, T4, TSH, FT3, CMP #### [facility] [address] [place] [address] Dr. Maggy Irving Creatinine [Mass/Vol] 0.83 mg/dL Normal 0.70-1.30 [facility] Comment on above: Performed By: #### L IPID, T4, TSH, FT3, CMP #### [facility] [address] [address] [address] Maggy Irving EGFR-AF GHANAIAN >60 Normal >=60 [facility] Comment on above: Performed By: #### L IPID, T4, TSH, FT3, CMP #### [facility] [address] [place] [address] Dr. Maggy Irving EGFR-NON AF GHANAIAN >60 Normal >=60 [facility] Comment on above: Performed By: #### L IPID, T4, TSH, FT3, CMP #### [facility] [address] [place] [address] Dr. Maggy Irving Globulin (S) [Mass/Vol] 3.4 g/dL Normal [facility] Comment on above: Performed By: #### L IPID, T4, TSH, FT3, CMP #### [facility] [address] [place] [address] Dr. Maggy Irving Glucose [Mass/Vol] 116 mg/dL Critically high 74-106 [facility] Comment on above: Performed By: #### L IPID, T4, TSH, FT3, CMP #### [facility] [address] [place] [address] Dr. Maggy Irving Potassium [Moles/Vol] 4.0 mmol/L Normal 3.5-5.1 [facility] Comment on above: Performed By: #### L IPID, T4, TSH, FT3, CMP #### [facility] [address] [address] [address] Maggy Irving Protein [Mass/Vol] 7.2 g/dL Normal 6.4-8.2 [facility] Comment on above: Performed By: #### L IPID, T4, TSH, FT3, CMP #### [facility] [address] [place] [address] Dr. Maggy Irving Sodium [Moles/Vol] 141 mmol/L Normal 136-145 [facility] Comment on above: Performed By: #### L IPID, T4, TSH, FT3, CMP #### [facility] [address] [place] [address] Dr. Maggy Irving Urea nitrogen [Mass/Vol] 17.0 mg/dL Normal 7.0-18.0 [facility] Comment on above: Performed By: #### L IPID, T4, TSH, FT3, CMP #### [facility] [address] [place] [address] Dr. Maggy Irving Urea nitrogen/Creatinine [Mass ratio] 20.5 mg/mg Normal [facility] Comment on above: Performed By: #### L IPID, T4, TSH, FT3, CMP #### [facility] [address] [place] [address] Dr. Maggy Irving TSHon 12-07-2022 TSH 5.531 uIU/mL Critically high 0.358-3.740 [facility] Comment on above: Performed By: #### L IPID, T4, TSH, FT3, CMP #### [facility] [address] [place] [address] Dr. Maggy Irving TESTOSTERONE, TOTALon 2021 Testosterone [Mass/Vol] 390 ng/dL Normal 264-916 [facility] Comment on above: Result Comment: Adul t male reference interval is based on a population of healthy nonobese males (BMI <30) between 19 and 39 years old. Reynaldo et.al. JCEM 2017,102;8627-1024. PMID: [id number]. Performed By: #### L IPID, T4, TSH, FT3, CMP #### [facility] [address] [place] [address] Dr. Maggy Irving CBC AUTO DIFFon 04-09-2022 BASO # 0.0 103/ul Normal 0.0-0.1 [facility] Comment on above: Performed By: #### L IPID, T4, TSH, FT3, CMP #### [facility] [address] [place] [address] Dr. Maggy Irving Basophils/100 WBC (Bld) 0.2 % Normal 0.2-2.0 [facility] Comment on above: Performed By: #### L IPID, T4, TSH, FT3, CMP #### [facility] [address] [place] [address] Dr. Maggy Irving EO # 0.2 103/ul Normal 0.0-0.7 [facility] Comment on above: Performed By: #### L IPID, T4, TSH, FT3, CMP #### [facility] [address] [place] [address] Dr. Maggy Irving Eosinophils/100 WBC (Bld) 3.1 % Normal 0.9-7.0 [facility] Comment on above: Performed By: #### L IPID, T4, TSH, FT3, CMP #### [facility] [address] [place] [address] Dr. Maggy Irving Erythrocyte distribution width (RBC) [Ratio] 12.3 % Normal 11.0-15.0 [facility] Comment on above: Performed By: #### L IPID, T4, TSH, FT3, CMP #### [facility] [address] [place] [address] Dr. Maggy Irving Hematocrit (Bld) [Volume fraction] 41.6 % Critically low 42.0-54.0 [facility] Comment on above: Performed By: #### L IPID, T4, TSH, FT3, CMP #### [facility] [address] [place] [address] Dr. Maggy Irving Hemoglobin (Bld) [Mass/Vol] 14.6 g/dL Normal 14.0-18.0 [facility] Comment on above: Performed By: #### L IPID, T4, TSH, FT3, CMP #### [facility] [address] [place] [address] Dr. Maggy Irving IG # 0.02 10e3/ul Normal 0.00-0.03 [facility] Comment on above: Performed By: #### L IPID, T4, TSH, FT3, CMP #### [facility] [address] [place] [address] Dr. Maggy Irving IG % 0.4 % Normal 0.0-0.5 [facility] Comment on above: Performed By: #### L IPID, T4, TSH, FT3, CMP #### [facility] [address] [place] [address] Dr. Maggy Irving LYMPH # 0.9 103/ul Critically low 1.2-3.8 [facility] Comment on above: Performed By: #### L IPID, T4, TSH, FT3, CMP #### [facility] [address] [place] [address] Dr. Maggy Irving Lymphocytes/100 WBC (Bld) 17.9 % Critically low 20.5-60.0 [facility] Comment on above: Performed By: #### L IPID, T4, TSH, FT3, CMP #### [facility] [address] [place] [address] Dr. Maggy Irving MANUAL DIFF REQ NO Normal [facility] Comment on above: Performed By: #### L IPID, T4, TSH, FT3, CMP #### [facility] [address] [place] [address] Dr. Maggy Irving MCH (RBC) [Entitic mass] 31.1 pg Normal 25.9-34.0 [facility] Comment on above: Performed By: #### L IPID, T4, TSH, FT3, CMP #### [facility] [address] [place] [address] Dr. Maggy Irving MCHC (RBC) [Mass/Vol] 35.1 g/dL Normal 29.9-35.2 [facility] Comment on above: Performed By: #### L IPID, T4, TSH, FT3, CMP #### [facility] [address] [place] [address] Dr. Maggy Irving MCV (RBC) [Entitic vol] 88.5 fL Normal 80.0-94.0 [facility] Comment on above: Performed By: #### L IPID, T4, TSH, FT3, CMP #### [facility] [address] [place] [address] Dr. Maggy Irving MONO # 0.4 103/ul Normal 0.3-0.8 [facility] Comment on above: Performed By: #### L IPID, T4, TSH, FT3, CMP #### [facility] [address] [place] [address] Dr. Maggy Irving Monocytes/100 WBC (Bld) 8.7 % Normal 1.7-12.0 [facility] Comment on above: Performed By: #### L IPID, T4, TSH, FT3, CMP #### [facility] [address] [place] [address] Dr. Maggy Irving NEUT # 3.4 103/ul Normal 1.4-6.5 [facility] Comment on above: Performed By: #### L IPID, T4, TSH, FT3, CMP #### [facility] [address] [place] [address] Dr. Maggy Irving Neutrophils/100 WBC (Bld) 69.7 % Normal 43.0-75.0 [facility] Comment on above: Performed By: #### L IPID, T4, TSH, FT3, CMP #### [facility] [address] [place] [address] Dr. Maggy Irving Platelet mean volume (Bld) [Entitic vol] 9.9 fL Normal 9.5-13.5 [facility] Comment on above: Performed By: #### L IPID, T4, TSH, FT3, CMP #### [facility] [address] [place] [address] Dr. Maggy Irving PLT 121 103/ul Critically low 150-450 [facility] Comment on above: Performed By: #### L IPID, T4, TSH, FT3, CMP #### [facility] [address] [place] [address] Dr. Maggy Irving RBC 4.70 106/ul Normal 4.70-6.10 [facility] Comment on above: Performed By: #### L IPID, T4, TSH, FT3, CMP #### [facility] [address] [place] [address] Dr. Maggy Irving WBC 4.8 103/ul Normal 4.0-11.0 [facility] Comment on above: Performed By: #### L IPID, T4, TSH, FT3, CMP #### [facility] [address] [address] [address] Maggy Irving FREE T3on 04-09-2022 FREE T3 3.15 pg/mlL Normal 2.18-3.98 [facility] Comment on above: Performed By: #### L IPID, T4, TSH, FT3, CMP #### [facility] [address] [address] [address] Maggy Irving GLYCOHEMOGLOBIN A1Con 2021 ADA RECOMMENDATION SEE BELOW Normal [facility] Comment on above: Result Comment: ADA RECOMMENDED LIMIT 4.0 - 6.0 ADA THERAPEUTIC TARGET < 7.0 ACTION SUGGESTED > 7.0 Performed By: #### L IPID, T4, TSH, FT3, CMP #### [facility] [address] [place] [address] Dr. Maggy Irving Glucose [Mass/Vol] 123 mg/dL Normal [facility] Comment on above: Performed By: #### L IPID, T4, TSH, FT3, CMP #### [facility] [address] [place] [address] Dr. Maggy Irving HbA1c (Bld) [Mass fraction] 5.9 % Normal 4.5-6.2 [facility] Comment on above: Performed By: #### L IPID, T4, TSH, FT3, CMP #### [facility] [address] [place] [address] Dr. Maggy Irving LIPID PROFILEon 04-09-2022 CHOL-HDL RATIO NORM SEE BELOW Normal [facility] Comment on above: Result Comment: 3.3 - 4.4 LOW RISK 4.4 - 7.1 AVERAGE RISK 7.1 - 11.0 MODERATE RISK >11.0 HIGH RISK Performed By: #### L IPID, T4, TSH, FT3, CMP #### [facility] [address] [place] [address] Dr. Mgagy Irving Cholesterol [Mass/Vol] 174 mg/dL Normal <=200 [facility] Comment on above: Performed By: #### L IPID, T4, TSH, FT3, CMP #### [facility] [address] [address] [address] Maggy Irving Cholesterol in HDL [Mass/Vol] 36 mg/dL Critically low 40-60 [facility] Comment on above: Performed By: #### L IPID, T4, TSH, FT3, CMP #### [facility] [address] [address] [address] Maggy Irving Cholesterol in LDL [Mass/Vol] 114.4 mg/dL Normal [facility] Comment on above: Performed By: #### L IPID, T4, TSH, FT3, CMP #### [facility] [address] [address] [address] Maggy Irving Cholesterol.total/Ch olesterol in HDL [Mass ratio] 4.8 {ratio} Normal [facility] Comment on above: Performed By: #### L IPID, T4, TSH, FT3, CMP #### [facility] [address] [place] [address] Dr. Maggy Irving HDL NORMAL > or = 60 mg/dl - LO W CARDIOVASCULAR RISK <40 mg/dl - HIGH CARDIOVASCULAR RISK Normal [facility] Comment on above: Performed By: #### L IPID, T4, TSH, FT3, CMP #### [facility] [address] [address] [address] Maggy Irving LDL CALC NORMAL SEE BELOW Normal [facility] Comment on above: Result Comment: <100 mg/dl OPTIMAL 100 - 129 mg/dl NEAR OR ABOVE OPTIMAL 130 - 159 mg/dl BORDERLINE HIGH 160 - 189 mg/dl HIGH >190 mg/dl VERY HIGH Performed By: #### L IPID, T4, TSH, FT3, CMP #### [facility] [address] [address] [address] Maggy Irving Triglyceride [Mass/Vol] 118 mg/dL Normal <=150 [facility] Comment on above: Performed By: #### L IPID, T4, TSH, FT3, CMP #### [facility] [address] [address] [address] Maggy Irving VLDL CALC 23.6 mg/dL Normal [facility] Comment on above: Performed By: #### L IPID, T4, TSH, FT3, CMP #### [facility] [address] [place] [address] Dr. Maggy Irving OCC BLD IMMUNO SCREENon 03-20 OCCULT BLOOD Negative Normal NEGATIVE [facility] Comment on above: Performed By: #### O BSCRN #### [facility] [address] [place] [address] Dr. Maggy Irving PROF 14(COMP METB)on 022 Albumin [Mass/Vol] 3.6 g/dL Normal 3.4-5.0 [facility] Comment on above: Performed By: #### L IPID, T4, TSH, FT3, CMP #### [facility] [address] [place] [address] Dr. Maggy Irving Albumin/Globulin [Mass ratio] 1.1 {ratio} Normal [facility] Comment on above: Performed By: #### L IPID, T4, TSH, FT3, CMP #### [facility] [address] [place] [address] Dr. Maggy Irving ALP [Catalytic activity/Vol] 47 U/L Normal 46-116 [facility] Comment on above: Performed By: #### L IPID, T4, TSH, FT3, CMP #### [facility] [address] [place] [address] Dr. Maggy Irving ALT [Catalytic activity/Vol] 31 U/L Normal 16-63 [facility] Comment on above: Performed By: #### L IPID, T4, TSH, FT3, CMP #### [facility] [address] [place] [address] Dr. Maggy Irving Anion gap [Moles/Vol] 10.2 mmol/L Normal [facility] Comment on above: Performed By: #### L IPID, T4, TSH, FT3, CMP #### [facility] [address] [place] [address] Dr. Maggy Irving AST [Catalytic activity/Vol] 17 U/L Normal 15-37 [facility] Comment on above: Performed By: #### L IPID, T4, TSH, FT3, CMP #### [facility] [address] [place] [address] Dr. Maggy Irving Bilirubin [Mass/Vol] 0.6 mg/dL Normal 0.2-1.0 [facility] Comment on above: Performed By: #### L IPID, T4, TSH, FT3, CMP #### [facility] [address] [place] [address] Dr. Maggy Irving Calcium [Mass/Vol] 8.1 mg/dL Critically low 8.5-10.1 [facility] Comment on above: Performed By: #### L IPID, T4, TSH, FT3, CMP #### [facility] [address] [place] [address] Dr. Maggy Irving Chloride [Moles/Vol] 105 mmol/L Normal 98-107 [facility] Comment on above: Performed By: #### L IPID, T4, TSH, FT3, CMP #### [facility] [address] [place] [address] Dr. Maggy Irving CO2 [Moles/Vol] 29.6 mmol/L Normal 21.0-32.0 [facility] Comment on above: Performed By: #### L IPID, T4, TSH, FT3, CMP #### [facility] [address] [place] [address] Dr. Maggy Irving Creatinine [Mass/Vol] 0.89 mg/dL Normal 0.70-1.30 [facility] Comment on above: Performed By: #### L IPID, T4, TSH, FT3, CMP #### [facility] [address] [place] [address] Dr. Maggy Irving EGFR-AF GHANAIAN >60 Normal >=60 [facility] Comment on above: Performed By: #### L IPID, T4, TSH, FT3, CMP #### [facility] [address] [place] [address] Dr. Maggy Irving EGFR-NON AF GHANAIAN >60 Normal >=60 [facility] Comment on above: Performed By: #### L IPID, T4, TSH, FT3, CMP #### [facility] [address] [address] [address] Maggy Irving Globulin (S) [Mass/Vol] 3.2 g/dL Normal [facility] Comment on above: Performed By: #### L IPID, T4, TSH, FT3, CMP #### [facility] [address] [place] [address] Dr. Maggy Irving Glucose [Mass/Vol] 110 mg/dL Critically high 74-106 [facility] Comment on above: Performed By: #### L IPID, T4, TSH, FT3, CMP #### [facility] [address] [place] [address] Dr. Maggy Irving Potassium [Moles/Vol] 3.8 mmol/L Normal 3.5-5.1 [facility] Comment on above: Performed By: #### L IPID, T4, TSH, FT3, CMP #### [facility] [address] [place] [address] Dr. Maggy Irving Protein [Mass/Vol] 6.8 g/dL Normal 6.4-8.2 [facility] Comment on above: Performed By: #### L IPID, T4, TSH, FT3, CMP #### [facility] [address] [place] [address] Dr. Maggy Irving Sodium [Moles/Vol] 141 mmol/L Normal 136-145 [facility] Comment on above: Performed By: #### L IPID, T4, TSH, FT3, CMP #### [facility] [address] [place] [address] Dr. Maggy Irving Urea nitrogen [Mass/Vol] 17.0 mg/dL Normal 7.0-18.0 [facility] Comment on above: Performed By: #### L IPID, T4, TSH, FT3, CMP #### [facility] [address] [place] [address] Dr. Maggy Irving Urea nitrogen/Creatinine [Mass ratio] 19.1 mg/mg Normal [facility] Comment on above: Performed By: #### L IPID, T4, TSH, FT3, CMP #### [facility] [address] [place], [place] [address] Dr. Maggy Irving T4on 04-09-2022 T4 [Mass/Vol] 7.90 ug/dL Normal 4.50-12.10 [facility] Comment on above: Performed By: #### L IPID, T4, TSH, FT3, CMP #### [facility] [address] [address] [address] Maggy Irving TSHon 04-09-2022 TSH 4.949 uIU/mL Critically high 0.358-3.740 [facility] Comment on above: Performed By: #### L IPID, T4, TSH, FT3, CMP #### [facility] [address] [address] [address] Maggy Ivring Vital Signs Date Time Vital Sign Value Performing Clinician Faci lity 04-06-2024 09:43-0400 Body height 177.8 cm [facility] 04-06-2024 09:43-0400 Body mass index (BMI) [Ratio] 34.4 kg/m2 [facility] 04-06-2024 09:43-0400 Body temperature 98.3 [degF] [facility] 04-06-2024 09:43-0400 Body weight 109.08 kg [facility] 04-06-2024 09:43-0400 Diastolic blood pressure 78 mm[Hg] [facility] 04-06-2024 09:43-0400 Heart rate 87 /min [facility] 04-06-2024 09:43-0400 Respiratory rate 18 /min [facility] 04-06-2024 09:43-0400 SaO2% (BldA) [Mass fraction] 96 % [facility] 04-06-2024 09:43-0400 Systolic blood pressure 146 mm[Hg] [facility] Encounters Encounter Date Encounter Type Care Provider Facility Start: 04-27-2024 End: 04-27-2024 ambulatory Marcella Gross [facility] Work Phone: Start: 04-27-2024 End: 04-27-2024 Departed Referred MD Marcella Gross Work Phone: [facility] Start: 04-06-2024 End: 04-06-2024 ambulatory [facility] Work Phone: Start: 04-06-2024 End: 04-06-2024 Patient encounter procedure [facility] Work Phone: Start: 02-10-2023 End: 02-11-2023 ambulatory IVELISSE ORNELAS Facility:[facility] Start: 02-07-2023 End: 02-07-2023 ambulatory IVELISSE ORNELAS Facility:[facility] Start: 02-06-2023 Encounter for preprocedural laboratory examination IVELISSE ORNELAS [facility] Start: 01-31-2023 End: 02-01-[address] [...] T4, TSH, FT3, CMP #### [facility] [address] [place] [address] Dr. Maggy Irving Payers Date Payer Category Payer Self-pay 1957 Medicare [id number] 1957 Unknown [id number] 1950 Unknown [id number] 2.16.84 [id number] 1950 Unknown [id number] 2.16.84 [id number] 1952 Unknown [id number] 2.16.84 [id number] 1950 Unknown [id number] 2.16.84 [id number] 1952 Unknown [id number] 2.16.84 0.1.625251.3.579.2.593 1952 Unknown [id number] 2.16.84 0.1.134898.3.579.2.593 1952 Unknown [id number] 2.16.84 0.1.736534.3.579.2.593 1952 Unknown [id number] 2.16.84 0.1.069407.3.579.2.593 1952 Unknown [id number] 2.16.84 0.1.315609.3.579.2.593 1952 Unknown [id number] 2.16.84 0.1.726770.3.579.2.593 1952 Unknown [id number] 2.16.84 [id number] Medicare Medicare [id number] 063 [id number] Unknown [id number] 2.16.8 [id number] Social History Date Type Detail Facility Tobacco smoking stat [facility] Unknown if ever smoked [facility] Work Phone: Start: 1950 Sex Assigned At Male F [facility] Clinical Note 02-07-2023 Note Date & Type [...] authenticated by: OLVIN KHANNA Date: 2023-02-07 09:41 [facility] Evaluation note Note Date & Type Note Facility Evaluation note Diagnosis Onset Date Bacterial conjunctivitis of right eye acute [facility] Work Phone: Summary Purpose Family History [...] and content) DATE CREATED AUTHOR 02/25/2023 [facility] DATE CREATED AUTHOR AUTHOR'S ORGANIZ ATION 05/02/2024 [facility] Care Teams (unrecognized [...] THE PRIMARY CLINICAL RECORDS. [facility] [employer] [facility]. provides no warranty or guarantee of the accuracy or completeness of information in this document.
[2025-05-06 11:02] LABS: Hematocrit 40.9 % (42.0-54.0); Hemoglobin 14.6 g/dL (14.0-18.0); Immature Granulocytes Abs Auto 0.02 10^3/uL (0.00-0.03); Immature Granulocytes Pct Auto 0.4 % (0.0-0.5); Lymphocytes Absolute Auto 0.9 10^3/uL (1.2-3.8); Mean Corpuscular HGB Conc 35.7 g/dL (29.9-35.2); Mean Corpuscular Hemoglobin 31.7 pg (25.9-34.0); Mean Corpuscular Volume 88.7 fL (80.0-94.0); Platelet Count 134 10^3/uL (150-450); Red Blood Count 4.61 10^6/uL (4.70-6.10); White Blood Count 5.2 10^3/uL (4.0-11.0)
[2025-05-06 12:05] LABS: Alanine Aminotransferase 141 U/L (16-63); Albumin Globulin Ratio 1.1; Albumin Level 4.0 g/dL (3.4-5.0); Alkaline Phosphatase 65 U/L (46-116); Anion Gap 7.9; Aspartate Amino Transferase 52 U/L (15-37); Blood Urea Nitrogen 15.0 mg/dL (7.0-18.0); Calcium 8.8 mg/dL (8.5-10.1); Carbon Dioxide 30.3 mmol/L (21.0-32.0); Chloride 106 mmol/L (98-107); Cholesterol 219 mg/dL (<=200); Estimated GFR (African America >60 (>=60 mL/min/1.73m^2); Estimated GFR (Non-African Ame >60 (>=60 mL/min/1.73m^2); Free T3 2.58 pg/mL (2.18-3.98); Globulin 3.8 g/dL; Glucose 112 mg/dL (74-106); HDL Cholesterol 43 mg/dL (40-60); Potassium 4.2 mmol/L (3.5-5.1); Sodium 140 mmol/L (136-145); Thyroid Stimulating Hormone 2.537 uIU/mL (0.358-3.740); Total Protein 7.8 g/dL (6.4-8.2); Triglycerides 138 mg/dL (<=150); Uric Acid 6.0 mg/dL (3.5-7.2); VLDL CHOLESTEROL 27.6 mg/dL
== END 2025-05-06 10:09 | disposition home or self-care (01) ==
PROVIDERS: PCP Family Medicine; Visit Provider Family Medicine
DX: R79.89 Other specified abnormal findings of blood chemistry (principal); I10 Essential (primary) hypertension; G62.9 Polyneuropathy, unspecified; E78.5 Hyperlipidemia, unspecified; R73.09 Other abnormal glucose; Z12.12 Encounter for screening for malignant neoplasm of rectum; R53.83 Other fatigue; Z12.5 Encounter for screening for malignant neoplasm of prostate
CPT/HCPCS: 36415; 80053; 80061; 83036; 83525; 84403; 84436; 84443; 84481; 84550; 85025; G0103; G0328

== ENCOUNTER 2025-05-07 11:19 | Outpatient (OUT) | payer MEDICARE, OTHER, SELFPAY ==
--- OUTSIDE RECORDS SUMMARY | 2025-05-07 14:33 | XMS_ITS | CCD ---
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 CURRENT DRUG THERAPY] Onset: 02-16-2023 Episodic Other [...] [id number] Received: 04/30/24 Status: CASS Req Num: [id number] Spec Type: Impression Subm Dr: Marcella Gross MD Tissues: PATHPER Procedures: PATHREVIEW Age/ Patient Sex Location Account Attending Physician RustySilvino Joel 74/M [place] [id number] Marcella Gross MD SPEC NUM: [id number] RECD: 04/30/24 STATUS: CASS REQ NUM: [id number] KAREN: 04/27/[address]: Marcella Gross MD ENTERED: 04/30/24 [facility] DR: SPEC TYPE: Impression DEPT: ALEXSANDRA Cervantes ENTERED BY: [id number] RECV BY: [id number] ORDERED: PATHREVIEW ORDERED: PATHREVIEW Pathologist Review Abnormal [...] shifted granulocytes, or granulocytic dysplasia observed CPT: 22603 -------- -------- Specimen: [id number] Received: 04/30/24 Status: CASS Moore Num: [id number] Spec Type: Impression Subm Dr: Marcella Gross MD Tissues: PATHPER Procedures: PATHREVIEW -------- Patient: Silvino Ojeda Joel [id number] (Continued) -------- Signed (signature on file) ChinAlexys Irving MD 04/30/241945 Normal [facility] CULTURE OTHERon 02-11-2023 CULTURE [...] F Trimethoprim/Sulfamet hoxazole <=10 S F Normal [facility] Comment on above: Performed By: #### L IPID, T4, TSH, FT3, CMP #### [facility] [address] [address] [address] Maggy Irving FUNGAL CULTUREon 02-09-2023 Fungus Stain Final report Normal [facility] Comment on above: Performed By: #### L IPID, T4, TSH, FT3, CMP #### [facility] [address] [address] [address] Maggy Irving Result 1 Comment Normal [facility] Comment on above: Result Comment: SUDHIR/ Calcofluor preparation: no fungus observed. Performed By: #### L IPID, T4, TSH, FT3, CMP #### [facility] [address] [address] [address] Maggy Irving ACID FAST SMEAR AND CXon Acid Fast Smear Negative Normal [facility] Comment on above: Performed By: #### A FB #### [facility] [address] [place] [address] Dr. Maggy Irving [employer] Specimen Processing Tissue Grinding [facility] Comment on above: Performed By: #### A FB #### [facility] [address] [place] [address] Dr. Maggy Irving CULTURE ANAEROBICon 02-08-20 CULTURE ANAEROBIC Isolate 1 Finegoldia magna Light growth of Normal [facility] Comment on above: Result Comment: EVID ENCE BASED PRACTICE BY [facility] HAS DEMONSTRATED THAT FINEGOLDIA SPECIES ARE ROUTINELY SUSCEPTIBLE TO PIPERACILLIN-TAZOBACTAM, CEFOXITIN, ERTAPENEM, IMIPENEM METRONIDAZOLE AND VARIABLY RESISTANT TO CLINDAMYCIN. Performed By: #### L IPID, T4, TSH, FT3, CMP #### [facility] [address] [place] [address] Dr. Maggy Irving GRAM STAINon 02-07-2023 COMMENTS NO ORGANISMS OBSERVED [facility] Comment on above: Performed By: #### G STAIN #### [facility] [address] [place] [address] Dr. Maggy Irving DIPHTHEROIDS Normal [facility] Comment on above: Performed By: #### G STAIN #### [facility] [address] [place] [address] Dr. Maggy Irving EPITHELIALS Normal [facility] Comment on above: Performed By: #### G STAIN #### [facility] [address] [address] [address] Maggy Irving FUNGAL ELEMENTS Normal [facility] Comment on above: Performed By: #### G STAIN #### [facility] [address] [address] [address] Maggy Irving GRAM NEG BACILLI Normal [facility] Comment on above: Performed By: #### G STAIN #### [facility] [address] [address] [address] Maggy MENDOZA NEG DIPPLOCOCCI Normal [facility] Comment on above: Performed By: #### G STAIN #### [facility] [address] [place] [address] Dr. Maggy Irving GRAM POS BACILLI [facility] Comment on above: Performed By: #### G STAIN #### [facility] [address] [place] [address] Dr. Maggy Irving GRAM POSITIVE COCCI Normal [facility] Comment on above: Performed By: #### G STAIN #### [facility] [address] [address] [address] Maggy Irving GRAM STAIN SOURCE 5th Metatarsal Bone [facility] Comment on above: Performed By: #### G STAIN #### [facility] [address] [place] [address] Dr. Maggy Irving GS_DIPTH [facility] Comment on above: Performed By: #### G STAIN #### [facility] [address] [place] [address] Dr. Maggy Irving WBC RARE Normal [facility] Comment on above: Performed By: #### G STAIN #### [facility] [address] [place] [address] Dr. Maggy Irving POINT OF CARE GLUCOSEon 01-18 Glucose [Mass/Vol] 114 mg/dL Critically high 74-106 [facility] Comment on above: Performed By: #### P OCGLUC #### [facility] [address] [place] [address] Dr. Maggy Irving Glucose [Mass/Vol] 122 mg/dL Critically high 74-106 T [facility] Comment on above: Performed By: #### P OCGLUC #### [facility] [address] [place] [address] Dr. Maggy Irving PROF CHEM 8 (BAS METB)on Anion gap [Moles/Vol] 12.0 mmol/L Normal [facility] Comment on above: Performed By: #### L IPID, T4, TSH, FT3, CMP #### [facility] [address] [address] [address] Maggy Irving Calcium [Mass/Vol] 8.7 mg/dL Normal 8.5-10.1 [facility] Comment on above: Performed By: #### L IPID, T4, TSH, FT3, CMP #### [facility] [address] [place] [address] Dr. Maggy Irving Chloride [Moles/Vol] 104 mmol/L Normal 98-107 [facility] Comment on above: Performed By: #### L IPID, T4, TSH, FT3, CMP #### [facility] [address] [address] [address] Maggy Irving CO2 [Moles/Vol] 28.1 mmol/L Normal 21.0-32.0 [facility] Comment on above: Performed By: #### L IPID, T4, TSH, FT3, CMP #### [facility] [address] [place] [address] Dr. Maggy Irving Creatinine [Mass/Vol] 0.80 mg/dL Normal 0.70-1.30 [facility] Comment on above: Performed By: #### L IPID, T4, TSH, FT3, CMP #### [facility] [address] [place] [address] Dr. Maggy Irving EGFR-AF UKRAINIAN >60 Normal >=60 [facility] Comment on above: Performed By: #### L IPID, T4, TSH, FT3, CMP #### [facility] [address] [place] [address] Dr. Maggy Irving EGFR-NON AF UKRAINIAN >60 Normal >=60 [facility] Comment on above: Performed By: #### L IPID, T4, TSH, FT3, CMP #### [facility] [address] [place] [address] Dr. Maggy Irving Glucose [Mass/Vol] 129 mg/dL Critically high 74-106 T [facility] Comment on above: Performed By: #### L IPID, T4, TSH, FT3, CMP #### [facility] [address] [place] [address] Dr. Maggy Irving Potassium [Moles/Vol] 4.1 mmol/L Normal 3.5-5.1 [facility] Comment on above: Performed By: #### L IPID, T4, TSH, FT3, CMP #### [facility] [address] [place] [address] Dr. Maggy Irving Sodium [Moles/Vol] 140 mmol/L Normal 136-145 [facility] Comment on above: Performed By: #### L IPID, T4, TSH, FT3, CMP #### [facility] [address] [place] [address] Dr. Maggy Irving Urea nitrogen [Mass/Vol] 20.0 mg/dL Critically high 7.0-18.0 [facility] Comment on above: Performed By: #### L IPID, T4, TSH, FT3, CMP #### [facility] [address] [place] [address] Dr. Maggy Irving Urea nitrogen/Creatinine [Mass ratio] 25.0 mg/mg Normal [facility] Comment on above: Performed By: #### L IPID, T4, TSH, FT3, CMP #### [facility] [address] [place] [address] Dr. Maggy Irving FREE T3on 01-07-2023 FREE T3 3.24 pg/mlL Normal 2.18-3.98 [facility] Comment on above: Performed By: #### L IPID, T4, TSH, FT3, CMP #### [facility] [address] [place] [address] Dr. Maggy Irving T4on 01-07-2023 T4 [Mass/Vol] 9.10 ug/dL Normal 4.50-12.10 [facility] Comment on above: Performed By: #### L IPID, T4, TSH, FT3, CMP #### [facility] [address] [place], [place] [address] Dr. Maggy Irving TSHon 01-07-2023 TSH 5.957 uIU/mL Critically high 0.358-3.740 [facility] Comment on above: Performed By: #### L IPID, T4, TSH, FT3, CMP #### [facility] [address] [place], [place] [address] Dr. Maggy Irving NM STRESS/REST MULTIon 01-03 NM STRESS/REST MULTI Patient: SILVINO OJEDA Exam Date: 01/03/2023 : 1950 Gender:M Ordering : DR MARCELLA GROSS . Admission #: [id number] Family : Order #: [id number] CLICK HERE TO VIEW EXAM RADIOLOGY REPORT [...] Khanna M.D. on 01/04/2023 at 07:45 Normal [facility] ECHOCARDIO M/2D COMPLETEon 0 12-21-2022 ECHOCARDIO M/2D COMPLETE Patient: SILVINO OJEDA Exam Date: 12/21/2022 : 1950 Gender:M Ordering : DR MARCELLA GROSS . Admission #: [id number] Family : Order #: [id number] CLICK HERE TO VIEW EXAM ECHOCARDIOGRAM REPORT [...] M.D. on 12/23/2022 at 18:05 Normal [facility] BNPon 12-07-2022 Natriuretic peptide B (Bld) [Mass/Vol] 37.0 pg/mL Normal <=900.0 [facility] Comment on above: Performed By: #### L IPID, T4, TSH, FT3, CMP #### [facility] [address] [place] [address] Dr. Maggy Irving CBC AUTO DIFFon 12-07-2022 BASO # 0.0 103/ul Normal 0.0-0.1 [facility] Comment on above: Performed By: #### L IPID, T4, TSH, FT3, CMP #### [facility] [address] [place] [address] Dr. Maggy Irving Basophils/100 WBC (Bld) 0.2 % Normal 0.2-2.0 [facility] Comment on above: Performed By: #### L IPID, T4, TSH, FT3, CMP #### [facility] [address] [place] [address] Dr. Maggy Irving EO # 0.2 103/ul Normal 0.0-0.7 [facility] Comment on above: Performed By: #### L IPID, T4, TSH, FT3, CMP #### [facility] [address] [place] [address] Dr. Maggy Irving Eosinophils/100 WBC (Bld) 3.7 % Normal 0.9-7.0 [facility] Comment on above: Performed By: #### L IPID, T4, TSH, FT3, CMP #### [facility] [address] [place] [address] Dr. Maggy Irving Erythrocyte distribution width (RBC) [Ratio] 11.9 % Normal 11.0-15.0 [facility] Comment on above: Performed By: #### L IPID, T4, TSH, FT3, CMP #### [facility] [address] [place] [address] Dr. Maggy Irving Hematocrit (Bld) [Volume fraction] 39.7 % Critically low 42.0-54.0 [facility] Comment on above: Performed By: #### L IPID, T4, TSH, FT3, CMP #### [facility] [address] [place] [address] Dr. Maggy Irving Hemoglobin (Bld) [Mass/Vol] 14.0 g/dL Normal 14.0-18.0 [facility] Comment on above: Performed By: #### L IPID, T4, TSH, FT3, CMP #### [facility] [address] [place] [address] Dr. Maggy Irving IG # 0.02 10e3/ul Normal 0.00-0.03 [facility] Comment on above: Performed By: #### L IPID, T4, TSH, FT3, CMP #### [facility] [address] [place] [address] Dr. Maggy Irving IG % 0.5 % Normal 0.0-0.5 [facility] Comment on above: Performed By: #### L IPID, T4, TSH, FT3, CMP #### [facility] [address] [place] [address] Dr. Maggy Irving LYMPH # 0.9 103/ul Critically low 1.2-3.8 [facility] Comment on above: Performed By: #### L IPID, T4, TSH, FT3, CMP #### [facility] [address] [place] [address] Dr. Maggy Irving Lymphocytes/100 WBC (Bld) 21.1 % Normal 20.5-60.0 [facility] Comment on above: Performed By: #### L IPID, T4, TSH, FT3, CMP #### [facility] [address] [place] [address] Dr. Maggy Irving MANUAL DIFF REQ NO Normal [facility] Comment on above: Performed By: #### L IPID, T4, TSH, FT3, CMP #### [facility] [address] [place] [address] Dr. Maggy Irving MCH (RBC) [Entitic mass] 30.5 pg Normal 25.9-34.0 [facility] Comment on above: Performed By: #### L IPID, T4, TSH, FT3, CMP #### [facility] [address] [place] [address] Dr. Maggy Irving MCHC (RBC) [Mass/Vol] 35.3 g/dL Critically high 29.9-35.2 [facility] Comment on above: Performed By: #### L IPID, T4, TSH, FT3, CMP #### [facility] [address] [place] [address] Dr. Maggy Irving MCV (RBC) [Entitic vol] 86.5 fL Normal 80.0-94.0 [facility] Comment on above: Performed By: #### L IPID, T4, TSH, FT3, CMP #### [facility] [address] [place] [address] Dr. Maggy Irving MONO # 0.4 103/ul Normal 0.3-0.8 [facility] Comment on above: Performed By: #### L IPID, T4, TSH, FT3, CMP #### [facility] [address] [place] [address] Dr. Maggy Irving Monocytes/100 WBC (Bld) 8.7 % Normal 1.7-12.0 [facility] Comment on above: Performed By: #### L IPID, T4, TSH, FT3, CMP #### [facility] [address] [place] [address] Dr. Maggy Irving NEUT # 2.9 103/ul Normal 1.4-6.5 [facility] Comment on above: Performed By: #### L IPID, T4, TSH, FT3, CMP #### [facility] [address] [place] [address] Dr. Maggy Irving Neutrophils/100 WBC (Bld) 65.8 % Normal 43.0-75.0 [facility] Comment on above: Performed By: #### L IPID, T4, TSH, FT3, CMP #### [facility] [address] [place] [address] Dr. Maggy Irving Platelet mean volume (Bld) [Entitic vol] 9.9 fL Normal 9.5-13.5 [facility] Comment on above: Performed By: #### L IPID, T4, TSH, FT3, CMP #### [facility] [address] [address] [address] Maggy Irving PLT 128 103/ul Critically low 150-450 [facility] Comment on above: Performed By: #### L IPID, T4, TSH, FT3, CMP #### [facility] [address] [address] [address] Maggy Irving RBC 4.59 106/ul Critically low 4.70-6.10 [facility] Comment on above: Performed By: #### L IPID, T4, TSH, FT3, CMP #### [facility] [address] [address] [address] Maggy Irving WBC 4.4 103/ul Normal 4.0-11.0 [facility] Comment on above: Performed By: #### L IPID, T4, TSH, FT3, CMP #### [facility] [address] [place] [address] Dr. Maggy Irving FREE THYROXINE INDEX T7on FTI 2.72 Normal 1.30-4.50 [facility] Comment on above: Performed By: #### L IPID, T4, TSH, FT3, CMP #### [facility] [address] [place] [address] Dr. Maggy Irving T3U 34.0 % Normal 33.0-40.0 [facility] Comment on above: Performed By: #### L IPID, T4, TSH, FT3, CMP #### [facility] [address] [place] [address] Dr. Maggy Irving T4 [Mass/Vol] 8.00 ug/dL Normal 4.50-12.10 [facility] Comment on above: Performed By: #### L IPID, T4, TSH, FT3, CMP #### [facility] [address] [place] [address] Dr. Maggy Irving IRONon 12-07-2022 Iron [Mass/Vol] 134.0 ug/dL Normal 65.0-175.0 [facility] Comment on above: Performed By: #### L IPID, T4, TSH, FT3, CMP #### [facility] [address] [place] [address] Dr. Maggy Irving LIPID PROFILEon 12-07-2022 CHOL-HDL RATIO NORM SEE BELOW Normal [facility] Comment on above: Result Comment: 3.3 - 4.4 LOW RISK 4.4 - 7.1 AVERAGE RISK 7.1 - 11.0 MODERATE RISK >11.0 HIGH RISK Performed By: #### L IPID, T4, TSH, FT3, CMP #### [facility] [address] [place] [address] Dr. Maggy Irving Cholesterol [Mass/Vol] 180 mg/dL Normal <=200 [facility] Comment on above: Performed By: #### L IPID, T4, TSH, FT3, CMP #### [facility] [address] [place] [address] Dr. Maggy Irving Cholesterol in HDL [Mass/Vol] 37 mg/dL Critically low 40-60 [facility] Comment on above: Performed By: #### L IPID, T4, TSH, FT3, CMP #### [facility] [address] [place] [address] Dr. Maggy Irving Cholesterol in LDL [Mass/Vol] 95.2 mg/dL Normal [facility] Comment on above: Performed By: #### L IPID, T4, TSH, FT3, CMP #### [facility] [address] [place] [address] Dr. Maggy Irving Cholesterol.total/Ch olesterol in HDL [Mass ratio] 4.9 {ratio} Normal [facility] Comment on above: Performed By: #### L IPID, T4, TSH, FT3, CMP #### [facility] [address] [place] [address] Dr. Maggy Irving HDL NORMAL > or = 60 mg/dl - LO W CARDIOVASCULAR RISK <40 mg/dl - HIGH CARDIOVASCULAR RISK Normal [facility] Comment on above: Performed By: #### L IPID, T4, TSH, FT3, CMP #### [facility] [address] [place] [address] Dr. Maggy Irving LDL CALC NORMAL SEE BELOW Normal [facility] Comment on above: Result Comment: <100 mg/dl OPTIMAL 100 - 129 mg/dl NEAR OR ABOVE OPTIMAL 130 - 159 mg/dl BORDERLINE HIGH 160 - 189 mg/dl HIGH >190 mg/dl VERY HIGH Performed By: #### L IPID, T4, TSH, FT3, CMP #### [facility] [address] [address] [address] Maggy Irving Triglyceride [Mass/Vol] 239 mg/dL Critically high <=150 [facility] Comment on above: Performed By: #### L IPID, T4, TSH, FT3, CMP #### [facility] [address] [place] [address] Dr. Maggy Irving VLDL CALC 47.8 mg/dL Normal [facility] Comment on above: Performed By: #### L IPID, T4, TSH, FT3, CMP #### [facility] [address] [place] [address] Dr. Maggy Irving PROF 14(COMP METB)on 023 Albumin [Mass/Vol] 3.8 g/dL Normal 3.4-5.0 [facility] Comment on above: Performed By: #### L IPID, T4, TSH, FT3, CMP #### [facility] [address] [place] [address] Dr. Maggy Irving Albumin/Globulin [Mass ratio] 1.1 {ratio} Normal [facility] Comment on above: Performed By: #### L IPID, T4, TSH, FT3, CMP #### [facility] [address] [place] [address] Dr. Maggy Irving ALP [Catalytic activity/Vol] 53 U/L Normal 46-116 [facility] Comment on above: Performed By: #### L IPID, T4, TSH, FT3, CMP #### [facility] [address] [place] [address] Dr. Maggy Irving ALT [Catalytic activity/Vol] 43 U/L Normal 16-63 [facility] Comment on above: Performed By: #### L IPID, T4, TSH, FT3, CMP #### [facility] [address] [place] [address] Dr. Maggy Irving Anion gap [Moles/Vol] 12.2 mmol/L Normal [facility] Comment on above: Performed By: #### L IPID, T4, TSH, FT3, CMP #### [facility] [address] [place] [address] Dr. Maggy Irving AST [Catalytic activity/Vol] 22 U/L Normal 15-37 [facility] Comment on above: Performed By: #### L IPID, T4, TSH, FT3, CMP #### [facility] [address] [place] [address] Dr. Maggy Irving Bilirubin [Mass/Vol] 0.6 mg/dL Normal 0.2-1.0 [facility] Comment on above: Performed By: #### L IPID, T4, TSH, FT3, CMP #### [facility] [address] [place] [address] Dr. Maggy Irving Calcium [Mass/Vol] 8.9 mg/dL Normal 8.5-10.1 [facility] Comment on above: Performed By: #### L IPID, T4, TSH, FT3, CMP #### [facility] [address] [place] [address] Dr. Maggy Irving Chloride [Moles/Vol] 104 mmol/L Normal 98-107 [facility] Comment on above: Performed By: #### L IPID, T4, TSH, FT3, CMP #### [facility] [address] [place] [address] Dr. Maggy Irving CO2 [Moles/Vol] 28.8 mmol/L Normal 21.0-32.0 [facility] Comment on above: Performed By: #### L IPID, T4, TSH, FT3, CMP #### [facility] [address] [place] [address] Dr. Maggy Irving Creatinine [Mass/Vol] 0.83 mg/dL Normal 0.70-1.30 [facility] Comment on above: Performed By: #### L IPID, T4, TSH, FT3, CMP #### [facility] [address] [address] [address] Maggy Irving EGFR-AF UKRAINIAN >60 Normal >=60 [facility] Comment on above: Performed By: #### L IPID, T4, TSH, FT3, CMP #### [facility] [address] [place] [address] Dr. Maggy Irving EGFR-NON AF UKRAINIAN >60 Normal >=60 [facility] Comment on above: Performed By: #### L IPID, T4, TSH, FT3, CMP #### [facility] [address] [place] [address] Dr. Maggy Irving Globulin (S) [Mass/Vol] 3.4 g/dL Normal [facility] Comment on above: Performed By: #### L IPID, T4, TSH, FT3, CMP #### [facility] [address] [place] [address] Dr. Maggy Irving Glucose [Mass/Vol] 116 mg/dL Critically high 74-106 [facility] Comment on above: Performed By: #### L IPID, T4, TSH, FT3, CMP #### [facility] [address] [place] [address] Dr. Maggy Irving Potassium [Moles/Vol] 4.0 mmol/L Normal 3.5-5.1 [facility] Comment on above: Performed By: #### L IPID, T4, TSH, FT3, CMP #### [facility] [address] [address] [address] Maggy Irving Protein [Mass/Vol] 7.2 g/dL Normal 6.4-8.2 [facility] Comment on above: Performed By: #### L IPID, T4, TSH, FT3, CMP #### [facility] [address] [place] [address] Dr. Maggy Irving Sodium [Moles/Vol] 141 mmol/L Normal 136-145 [facility] Comment on above: Performed By: #### L IPID, T4, TSH, FT3, CMP #### [facility] [address] [place] [address] Dr. Maggy Irving Urea nitrogen [Mass/Vol] 17.0 mg/dL Normal 7.0-18.0 [facility] Comment on above: Performed By: #### L IPID, T4, TSH, FT3, CMP #### [facility] [address] [place] [address] Dr. Maggy Irving Urea nitrogen/Creatinine [Mass ratio] 20.5 mg/mg Normal [facility] Comment on above: Performed By: #### L IPID, T4, TSH, FT3, CMP #### [facility] [address] [place] [address] Dr. Maggy Irving TSHon 12-07-2022 TSH 5.531 uIU/mL Critically high 0.358-3.740 [facility] Comment on above: Performed By: #### L IPID, T4, TSH, FT3, CMP #### [facility] [address] [place] [address] Dr. Maggy Irving TESTOSTERONE, TOTALon 2021 Testosterone [Mass/Vol] 390 ng/dL Normal 264-916 [facility] Comment on above: Result Comment: Adul t male reference interval is based on a population of healthy nonobese males (BMI <30) between 19 and 39 years old. Reynaldo et.al. JCEM 2017,102;2844-6178. PMID: [id number]. Performed By: #### L IPID, T4, TSH, FT3, CMP #### [facility] [address] [place] [address] Dr. Maggy Irving CBC AUTO DIFFon 04-09-2022 BASO # 0.0 103/ul Normal 0.0-0.1 [facility] Comment on above: Performed By: #### L IPID, T4, TSH, FT3, CMP #### [facility] [address] [place] [address] Dr. Maggy Irving Basophils/100 WBC (Bld) 0.2 % Normal 0.2-2.0 [facility] Comment on above: Performed By: #### L IPID, T4, TSH, FT3, CMP #### [facility] [address] [place] [address] Dr. Maggy Irving EO # 0.2 103/ul Normal 0.0-0.7 [facility] Comment on above: Performed By: #### L IPID, T4, TSH, FT3, CMP #### [facility] [address] [place] [address] Dr. Maggy Irving Eosinophils/100 WBC (Bld) 3.1 % Normal 0.9-7.0 [facility] Comment on above: Performed By: #### L IPID, T4, TSH, FT3, CMP #### [facility] [address] [place] [address] Dr. Magyg Irving Erythrocyte distribution width (RBC) [Ratio] 12.3 % Normal 11.0-15.0 [facility] Comment on above: Performed By: #### L IPID, T4, TSH, FT3, CMP #### [facility] [address] [place] [address] Dr. Maggy Irving Hematocrit (Bld) [Volume fraction] 41.6 % Critically low 42.0-54.0 [facility] Comment on above: Performed By: #### L IPID, T4, TSH, FT3, CMP #### [facility] [address] [place] [address] Dr. Maggy Irving Hemoglobin (Bld) [Mass/Vol] 14.6 g/dL Normal 14.0-18.0 [facility] Comment on above: Performed By: #### L IPID, T4, TSH, FT3, CMP #### [facility] [address] [place] [address] Dr. Maggy Irving IG # 0.02 10e3/ul Normal 0.00-0.03 [facility] Comment on above: Performed By: #### L IPID, T4, TSH, FT3, CMP #### [facility] [address] [place] [address] Dr. Maggy Irving IG % 0.4 % Normal 0.0-0.5 [facility] Comment on above: Performed By: #### L IPID, T4, TSH, FT3, CMP #### [facility] [address] [place] [address] Dr. Maggy Irving LYMPH # 0.9 103/ul Critically low 1.2-3.8 [facility] Comment on above: Performed By: #### L IPID, T4, TSH, FT3, CMP #### [facility] [address] [place] [address] Dr. Maggy Irving Lymphocytes/100 WBC (Bld) 17.9 % Critically low 20.5-60.0 [facility] Comment on above: Performed By: #### L IPID, T4, TSH, FT3, CMP #### [facility] [address] [place] [address] Dr. Maggy Irving MANUAL DIFF REQ NO Normal [facility] Comment on above: Performed By: #### L IPID, T4, TSH, FT3, CMP #### [facility] [address] [place] [address] Dr. Maggy Irving MCH (RBC) [Entitic mass] 31.1 pg Normal 25.9-34.0 [facility] Comment on above: Performed By: #### L IPID, T4, TSH, FT3, CMP #### [facility] [address] [place] [address] Dr. Maggy Irving MCHC (RBC) [Mass/Vol] 35.1 g/dL Normal 29.9-35.2 [facility] Comment on above: Performed By: #### L IPID, T4, TSH, FT3, CMP #### [facility] [address] [place] [address] Dr. Maggy Irving MCV (RBC) [Entitic vol] 88.5 fL Normal 80.0-94.0 [facility] Comment on above: Performed By: #### L IPID, T4, TSH, FT3, CMP #### [facility] [address] [place] [address] Dr. Maggy Irving MONO # 0.4 103/ul Normal 0.3-0.8 [facility] Comment on above: Performed By: #### L IPID, T4, TSH, FT3, CMP #### [facility] [address] [place] [address] Dr. Maggy Irving Monocytes/100 WBC (Bld) 8.7 % Normal 1.7-12.0 [facility] Comment on above: Performed By: #### L IPID, T4, TSH, FT3, CMP #### [facility] [address] [place] [address] Dr. Maggy Irving NEUT # 3.4 103/ul Normal 1.4-6.5 [facility] Comment on above: Performed By: #### L IPID, T4, TSH, FT3, CMP #### [facility] [address] [place] [address] Dr. Maggy Irving Neutrophils/100 WBC (Bld) 69.7 % Normal 43.0-75.0 [facility] Comment on above: Performed By: #### L IPID, T4, TSH, FT3, CMP #### [facility] [address] [place] [address] Dr. Maggy Irving Platelet mean volume (Bld) [Entitic vol] 9.9 fL Normal 9.5-13.5 [facility] Comment on above: Performed By: #### L IPID, T4, TSH, FT3, CMP #### [facility] [address] [place] [address] Dr. Maggy Irving PLT 121 103/ul Critically low 150-450 [facility] Comment on above: Performed By: #### L IPID, T4, TSH, FT3, CMP #### [facility] [address] [place] [address] Dr. Maggy Irving RBC 4.70 106/ul Normal 4.70-6.10 [facility] Comment on above: Performed By: #### L IPID, T4, TSH, FT3, CMP #### [facility] [address] [place] [address] Dr. Maggy Irving WBC 4.8 103/ul Normal 4.0-11.0 [facility] Comment on above: Performed By: #### L IPID, T4, TSH, FT3, CMP #### [facility] [address] [address] [address] Maggy Irving FREE T3on 04-09-2022 FREE T3 3.15 pg/mlL Normal 2.18-3.98 [facility] Comment on above: Performed By: #### L IPID, T4, TSH, FT3, CMP #### [facility] [address] [address] [address] Maggy Irving GLYCOHEMOGLOBIN A1Con 2021 ADA RECOMMENDATION SEE BELOW Normal [facility] Comment on above: Result Comment: ADA RECOMMENDED LIMIT 4.0 - 6.0 ADA THERAPEUTIC TARGET < 7.0 ACTION SUGGESTED > 7.0 Performed By: #### L IPID, T4, TSH, FT3, CMP #### [facility] [address] [place] [address] Dr. Maggy Irving Glucose [Mass/Vol] 123 mg/dL Normal [facility] Comment on above: Performed By: #### L IPID, T4, TSH, FT3, CMP #### [facility] [address] [place] [address] Dr. Maggy Irving HbA1c (Bld) [Mass fraction] 5.9 % Normal 4.5-6.2 [facility] Comment on above: Performed By: #### L IPID, T4, TSH, FT3, CMP #### [facility] [address] [place] [address] Dr. Maggy Irving LIPID PROFILEon 04-09-2022 CHOL-HDL RATIO NORM SEE BELOW Normal [facility] Comment on above: Result Comment: 3.3 - 4.4 LOW RISK 4.4 - 7.1 AVERAGE RISK 7.1 - 11.0 MODERATE RISK >11.0 HIGH RISK Performed By: #### L IPID, T4, TSH, FT3, CMP #### [facility] [address] [place] [address] Dr. Maggy Irving Cholesterol [Mass/Vol] 174 mg/dL Normal <=200 [facility] Comment on above: Performed By: #### L IPID, T4, TSH, FT3, CMP #### [facility] [address] [address] [address] Maggy Irving Cholesterol in HDL [Mass/Vol] 36 mg/dL Critically low 40-60 [facility] Comment on above: Performed By: #### L IPID, T4, TSH, FT3, CMP #### [facility] [address] [address] [address] Maggy Irving Cholesterol in LDL [Mass/Vol] 114.4 mg/dL Normal [facility] Comment on above: Performed By: #### L IPID, T4, TSH, FT3, CMP #### [facility] [address] [address] [address] Maggy Irving Cholesterol.total/Ch olesterol in HDL [Mass ratio] 4.8 {ratio} Normal [facility] Comment on above: Performed By: #### L IPID, T4, TSH, FT3, CMP #### [facility] [address] [place] [address] Dr. Maggy Irving HDL NORMAL > or = 60 mg/dl - LO W CARDIOVASCULAR RISK <40 mg/dl - HIGH CARDIOVASCULAR RISK Normal [facility] Comment on above: Performed By: #### L IPID, T4, TSH, FT3, CMP #### [facility] [address] [address] [address] Maggy Irving LDL CALC NORMAL SEE BELOW Normal [facility] Comment on above: Result Comment: <100 mg/dl OPTIMAL 100 - 129 mg/dl NEAR OR ABOVE OPTIMAL 130 - 159 mg/dl BORDERLINE HIGH 160 - 189 mg/dl HIGH >190 mg/dl VERY HIGH Performed By: #### L IPID, T4, TSH, FT3, CMP #### [facility] [address] [address] [address] Maggy Irving Triglyceride [Mass/Vol] 118 mg/dL Normal <=150 [facility] Comment on above: Performed By: #### L IPID, T4, TSH, FT3, CMP #### [facility] [address] [address] [address] Maggy Irving VLDL CALC 23.6 mg/dL Normal [facility] Comment on above: Performed By: #### L IPID, T4, TSH, FT3, CMP #### [facility] [address] [place] [address] Dr. Maggy Irving OCC BLD IMMUNO SCREENon 03-20 OCCULT BLOOD Negative Normal NEGATIVE [facility] Comment on above: Performed By: #### O BSCRN #### [facility] [address] [place] [address] Dr. Maggy Irving PROF 14(COMP METB)on 022 Albumin [Mass/Vol] 3.6 g/dL Normal 3.4-5.0 [facility] Comment on above: Performed By: #### L IPID, T4, TSH, FT3, CMP #### [facility] [address] [place] [address] Dr. Maggy Irving Albumin/Globulin [Mass ratio] 1.1 {ratio} Normal [facility] Comment on above: Performed By: #### L IPID, T4, TSH, FT3, CMP #### [facility] [address] [place] [address] Dr. Maggy Irving ALP [Catalytic activity/Vol] 47 U/L Normal 46-116 [facility] Comment on above: Performed By: #### L IPID, T4, TSH, FT3, CMP #### [facility] [address] [place] [address] Dr. Maggy Irving ALT [Catalytic activity/Vol] 31 U/L Normal 16-63 [facility] Comment on above: Performed By: #### L IPID, T4, TSH, FT3, CMP #### [facility] [address] [place] [address] Dr. Maggy Irving Anion gap [Moles/Vol] 10.2 mmol/L Normal [facility] Comment on above: Performed By: #### L IPID, T4, TSH, FT3, CMP #### [facility] [address] [place] [address] Dr. Maggy Irving AST [Catalytic activity/Vol] 17 U/L Normal 15-37 [facility] Comment on above: Performed By: #### L IPID, T4, TSH, FT3, CMP #### [facility] [address] [place] [address] Dr. Maggy Irving Bilirubin [Mass/Vol] 0.6 mg/dL Normal 0.2-1.0 [facility] Comment on above: Performed By: #### L IPID, T4, TSH, FT3, CMP #### [facility] [address] [place] [address] Dr. Maggy Irving Calcium [Mass/Vol] 8.1 mg/dL Critically low 8.5-10.[address] [facility] Comment on above: Performed By: #### L IPID, T4, TSH, FT3, CMP #### [facility] [address] [place] [address] Dr. Maggy Irving Chloride [Moles/Vol] 105 mmol/L Normal 98-107 [facility] Comment on above: Performed By: #### L IPID, T4, TSH, FT3, CMP #### [facility] [address] [place] [address] Dr. Maggy Irving CO2 [Moles/Vol] 29.6 mmol/L Normal 21.0-32.0 [facility] Comment on above: Performed By: #### L IPID, T4, TSH, FT3, CMP #### [facility] [address] [place] [address] Dr. Maggy Irving Creatinine [Mass/Vol] 0.89 mg/dL Normal 0.70-1.30 [facility] Comment on above: Performed By: #### L IPID, T4, TSH, FT3, CMP #### [facility] [address] [place] [address] Dr. Maggy Irving EGFR-AF UKRAINIAN >60 Normal >=60 [facility] Comment on above: Performed By: #### L IPID, T4, TSH, FT3, CMP #### [facility] [address] [place] [address] Dr. Maggy Irving EGFR-NON AF UKRAINIAN >60 Normal >=60 [facility] Comment on above: Performed By: #### L IPID, T4, TSH, FT3, CMP #### [facility] [address] [address] [address] Maggy Irving Globulin (S) [Mass/Vol] 3.2 g/dL Normal [facility] Comment on above: Performed By: #### L IPID, T4, TSH, FT3, CMP #### [facility] [address] [place] [address] Dr. Maggy Irving Glucose [Mass/Vol] 110 mg/dL Critically high 74-106 [facility] Comment on above: Performed By: #### L IPID, T4, TSH, FT3, CMP #### [facility] [address] [place] [address] Dr. Maggy Irving Potassium [Moles/Vol] 3.8 mmol/L Normal 3.5-5.1 [facility] Comment on above: Performed By: #### L IPID, T4, TSH, FT3, CMP #### [facility] [address] [place] [address] Dr. Maggy Irving Protein [Mass/Vol] 6.8 g/dL Normal 6.4-8.2 [facility] Comment on above: Performed By: #### L IPID, T4, TSH, FT3, CMP #### [facility] [address] [place] [address] Dr. Maggy Irving Sodium [Moles/Vol] 141 mmol/L Normal 136-145 [facility] Comment on above: Performed By: #### L IPID, T4, TSH, FT3, CMP #### [facility] [address] [place] [address] Dr. Maggy Irving Urea nitrogen [Mass/Vol] 17.0 mg/dL Normal 7.0-18.0 [facility] Comment on above: Performed By: #### L IPID, T4, TSH, FT3, CMP #### [facility] [address] [place] [address] Dr. Maggy Irving Urea nitrogen/Creatinine [Mass ratio] 19.1 mg/mg Normal [facility] Comment on above: Performed By: #### L IPID, T4, TSH, FT3, CMP #### [facility] [address] [place], [place] [id number] Dr. Maggy Irving T4on 04-09-2022 T4 [Mass/Vol] 7.90 ug/dL Normal 4.50-12.10 [facility] Comment on above: Performed By: #### L IPID, T4, TSH, FT3, CMP #### [facility] [address] [address] [address] Maggy Irving TSHon 04-09-2022 TSH 4.949 uIU/mL Critically high 0.358-3.740 [facility] Comment on above: Performed By: #### L IPID, T4, TSH, FT3, CMP #### [facility] [address] [address] [address] Maggy Irving Vital Signs Date Time Vital Sign Value Performing Clinician Faci lity 04-06-2024 09:43-0400 Body height 177.8 cm [facility] 04-06-2024 09:43-0400 Body mass index (BMI) [Ratio] 34.4 kg/m2 [facility] 04-06-2024 09:43-0400 Body temperature 98.3 [degF] [facility] 04-06-2024 09:43-0400 Body weight 109.08 kg [facility] 04-06-2024 09:43-0400 Diastolic blood pressure 78 mm[Hg] [facility] 04-06-2024 09:43-0400 Heart rate 87 /min [facility] 04-06-2024 09:43-0400 Respiratory rate 18 /min [facility] 04-06-2024 09:43-0400 SaO2% (BldA) [Mass fraction] 96 % [facility] 04-06-2024 09:43-0400 Systolic blood pressure 146 mm[Hg] [facility] Encounters Encounter Date Encounter Type Care Provider Facility Start: 04-27-2024 End: 04-27-2024 ambulatory Marcella Gross [facility] Work Phone: Start: 04-27-2024 End: 04-27-2024 Departed Referred MD Marcella Gross Work Phone: [facility] Start: 04-06-2024 End: 04-06-2024 ambulatory [facility] Work Phone: Start: 04-06-2024 End: 04-06-2024 Patient encounter procedure [facility] Work Phone: Start: 02-10-2023 End: 02-11-2023 ambulatory IVELISSE ORNELAS Facility:[facility] Start: 02-07-2023 End: 02-07-2023 ambulatory IVELISSE ORNELAS Facility:[facility] Start: 02-06-2023 Encounter for preprocedural laboratory examination IVELISSE ORNELAS [facility] Start: 01-31-2023 End: 02-01-[address] MARCELLA GROSS . Facility:[facility] Start: 01-31-2023 End: 02-01-2023 Encounter for preprocedural laboratory examination DR MARCELLA GROSS . Facility:[facility] Start: 01-25-2023 End: 01-26-[address] MARCELLA GROSS . Facility:[facility] Start: 01-07-2023 End: 01-08-[address] MARCELAL GROSS . Facility:[facility] Start: 01-03-2023 End: 01-04-2023 [...] L IPID, T4, TSH, FT3, CMP #### [facility] [address] [place] [address] Dr. Maggy Irving Payers Date Payer Category Payer Self-pay 1957 Medicare [id number] 1957 Unknown [id number] 1950 Unknown [id number] 2.16.84 [id number] 1952 Unknown [id number] 2.16.84 [id number] 1952 Unknown [id number] 2.16.84 [id number] 1952 Unknown [id number] 2.16.84 [id number] 1952 Unknown [id number] 2.16.84 [id number] 1952 Unknown [id number] 2.16.84 [id number] 1952 Unknown [id number] 2.16.84 0.1.198460.3.579.2.593 1952 Unknown [id number] 2.16.84 0.1.560657.3.579.2.593 1952 Unknown [id number] 2.16.84 0.1.467724.3.579.2.593 1952 Unknown [id number] 2.16.84 [id number] 1950 Unknown [id number] 2.16.84 [id number] Medicare Medicare [id number] 063 [id number] Unknown [id number] 2.16.8 [id number] Social History Date Type Detail Facility Tobacco smoking stat [facility] Unknown if ever smoked [facility] Work Phone: Start: 1950 Sex Assigned At Male F [facility] Clinical Note 02-07-2023 Note Date & [...] authenticated by: OLVIN KHANNA Date: 2023-02-07 09:41 [facility] Evaluation note Note Date & Type Note Facility Evaluation note Diagnosis Onset Date Bacterial conjunctivitis of right eye acute [facility] Work Phone: Summary Purpose Family History [...] and content) DATE CREATED AUTHOR 02/25/2023 [facility] DATE CREATED AUTHOR AUTHOR'S ORGANIZ ATION [...] BE BASED ON THE PRIMARY CLINICAL RECORDS. [facility] [employer] [facility]. provides no warranty or guarantee of the accuracy or completeness of information in this document.
== END 2025-05-07 11:20 | disposition home or self-care (01) ==
LOC: WC 11:19
PROVIDERS: PCP Family Medicine; Visit Provider Physician Assistant
DX: L97.412 Non-pressure chronic ulcer of right heel and midfoot with fat layer exposed (principal)
CPT/HCPCS: G0463

== ENCOUNTER 2025-05-14 06:52 | Outpatient (OUT) | payer MEDICARE, OTHER, SELFPAY ==
--- OUTSIDE RECORDS SUMMARY | 2025-05-14 06:55 | XMS_ITS | CCD ---
Author Organization [facility] Care Team Providers Care Horologist Apprentice Name Role Phone CHEIKH ., DR NARANJO [...] Attending Unavailable HIGHLANDER, PETER D Admitting Unavailable MD Marcella Gross Attending Provider [phone] Marcella Gross Attending Unavailable Marcella Gross Admitting Unavailable Chirag STINSON Attending Unavailable Marcella Gross Referring Unavailable Medications Current Medications Medication Drug Class(es) [...] 04-06-2024 Episodic Other aftercare (1 source) Other supervisor intermediates (current) drug therapy; Translations: [OTH DETENTION CURRENT [...] Test Name Value Interpretation Reference Range Facility [facility] 04-27-2024 L Specimen: [id number] Received: 04/30/24 Status: CASS Moore Num: [id number] Spec Type: Impression Subm Dr: Marcella Gross MD Tissues: PATHPER Procedures: PATHREVIEW Age/ Patient Sex Location Account Attending Physician Silvino Ojeda 74/M [facility] [id number] Marcella Gross MD SPEC NUM: [id number] RECD: 04/30/24 STATUS: CASS MOORE NUM: [id number] KAREN: 04/27/[address]: Marcella Gross MD ENTERED: 04/30/[address] [facility] [address]: SPEC TYPE: Impression DEPT: ALEXSANDRA Cervantes ENTERED BY: [id number] RECV BY: [id number] ORDERED: PATHREVIEW ORDERED: PATHREVIEW Pathologist Review Abnormal [...] shifted granulocytes, or granulocytic dysplasia observed CPT: 20583 -------- -------- Specimen: [id number] Received: 04/30/24 Status: CASS Moore Num: [id number] Spec Type: Impression Subm Dr: Marcella Gross MD Tissues: PATHPER Procedures: PATHREVIEW -------- Patient: Silivno Ojeda [id number] (Continued) -------- Signed (signature on file) Celia Irving MD 04/30/241945 Normal [facility] CULTURE OTHERon 02-11-2023 CULTURE OTHER [...] F Trimethoprim/Sulfamet hoxazole <=[address] [facility] Comment on above: Performed By: #### L IPID, T4, TSH, FT3, CMP #### [facility] [address] [address] [address] Maggy Irving FUNGAL CULTUREon 02-09-2023 Fungus Stain Final report Normal [facility] Comment on above: Performed By: #### L IPID, T4, TSH, FT3, CMP #### [facility] [address] [address] [address] Maggy Irving Result 1 Comment Normal [facility] Comment on above: Result Comment: SUDHIR/ Calcofluor preparation: no fungus observed. Performed By: #### L IPID, T4, TSH, FT3, CMP #### [facility] [address] [place] [address] Dr. Maggy Irving ACID FAST SMEAR AND CXon Acid Fast Smear Negative Normal [facility] Comment on above: Performed By: #### A FB #### [facility] [address] [place] [address] Dr. Maggy Irving [employer] Specimen Processing Tissue Grinding [facility] Comment on above: Performed By: #### A FB #### [facility] [address] [place] [address] Dr. Maggy Irving CULTURE ANAEROBICon 02-08-20 CULTURE ANAEROBIC Isolate 1 Finegoldia magna Light growth of Normal [facility] Comment on above: Result Comment: EVID ENCE BASED PRACTICE BY [facility] HAS DEMONSTRATED THAT FINEGOLDIA SPECIES ARE ROUTINELY SUSCEPTIBLE TO PIPERACILLIN-TAZOBACTAM, CEFOXITIN, ERTAPENEM, IMIPENEM METRONIDAZOLE AND VARIABLY RESISTANT TO CLINDAMYCIN. Performed By: #### L IPID, T4, TSH, FT3, CMP #### [facility] [address] [place] [address] Dr. Maggy Irving GRAM STAINon 02-07-2023 COMMENTS NO ORGANISMS OBSERVED [facility] Comment on above: Performed By: #### G STAIN #### [facility] [address] [place] [address] Dr. Maggy Irving DIPHTHEROIDS Normal [facility] Comment on above: Performed By: #### G STAIN #### [facility] [address] [address] [address] Maggy Irving EPITHELIALS Normal [facility] Comment on above: Performed By: #### G STAIN #### [facility] [address] [address] [address] Maggy Irving FUNGAL ELEMENTS Normal [facility] Comment on above: Performed By: #### G STAIN #### [facility] [address] [address] [address] Maggy Irving GRAM NEG BACILLI Normal [facility] Comment on above: Performed By: #### G STAIN #### [facility] [address] [address] [address] Maggy MENDOZA NEG DIPPLOCOCCI Normal [facility] Comment on above: Performed By: #### G STAIN #### [facility] [address] [address] [address] Maggy Irving GRAM POS BACILLI Normal [facility] Comment on above: Performed By: #### G STAIN #### [facility] [address] [address] [address] Maggy Irving GRAM POSITIVE COCCI Normal [facility] Comment on above: Performed By: #### G STAIN #### [facility] [address] [address] [address] Maggy Irving GRAM STAIN SOURCE 5th Metatarsal Bone Normal [facility] Comment on above: Performed By: #### G STAIN #### [facility] [address] [address] [address] Maggy Irving GS_DIPTH [facility] Comment on above: Performed By: #### G STAIN #### [facility] [address] [address] [address] Maggy Irving WBC RARE Normal [facility] Comment on above: Performed By: #### G STAIN #### [facility] [address] [address] [address] Maggy Irving POINT OF CARE GLUCOSEon 05-2 Glucose [Mass/Vol] 114 mg/dL Critically high 74-106 T [facility] Comment on above: Performed By: #### P OCGLUC #### [facility] [address] [place] [address] Dr. Maggy Irving Glucose [Mass/Vol] 122 mg/dL Critically high 74-106 T [facility] Comment on above: Performed By: #### P OCGLUC #### [facility] [address] [place] [address] Dr. Maggy Irving PROF CHEM 8 (BAS METB)on Anion gap [Moles/Vol] 12.0 mmol/L Normal [facility] Comment on above: Performed By: #### L IPID, T4, TSH, FT3, CMP #### [facility] [address] [place] [address] Dr. Maggy Irving Calcium [Mass/Vol] 8.7 mg/dL Normal 8.5-10.1 [facility] Comment on above: Performed By: #### L IPID, T4, TSH, FT3, CMP #### [facility] [address] [place] [address] Dr. Maggy Irving Chloride [Moles/Vol] 104 mmol/L Normal 98-107 [facility] Comment on above: Performed By: #### L IPID, T4, TSH, FT3, CMP #### [facility] [address] [place] [address] Dr. Maggy Irving CO2 [Moles/Vol] 28.1 mmol/L Normal 21.0-32.0 [facility] Comment on above: Performed By: #### L IPID, T4, TSH, FT3, CMP #### [facility] [address] [place] [address] Dr. Maggy Irving Creatinine [Mass/Vol] 0.80 mg/dL Normal 0.70-1.30 [facility] Comment on above: Performed By: #### L IPID, T4, TSH, FT3, CMP #### [facility] [address] [place] [address] Dr. Maggy Irving EGFR-AF MALAYSIAN >60 Normal >=60 [facility] Comment on above: Performed By: #### L IPID, T4, TSH, FT3, CMP #### [facility] [address] [address] [address] Maggy Irving EGFR-NON AF MALAYSIAN >60 Normal >=60 [facility] Comment on above: Performed By: #### L IPID, T4, TSH, FT3, CMP #### [facility] [address] [place] [address] Dr. Maggy Irving Glucose [Mass/Vol] 129 mg/dL Critically high 74-106 T [facility] Comment on above: Performed By: #### L IPID, T4, TSH, FT3, CMP #### [facility] [address] [address] [address] Maggy Irving Potassium [Moles/Vol] 4.1 mmol/L Normal 3.5-5.1 [facility] Comment on above: Performed By: #### L IPID, T4, TSH, FT3, CMP #### [facility] [address] [place] [address] Dr. Maggy Irving Sodium [Moles/Vol] 140 mmol/L Normal 136-145 [facility] Comment on above: Performed By: #### L IPID, T4, TSH, FT3, CMP #### [facility] [address] [address] [address] Maggy Irving Urea nitrogen [Mass/Vol] 20.0 mg/dL Critically high 7.0-18.0 [facility] Comment on above: Performed By: #### L IPID, T4, TSH, FT3, CMP #### [facility] [address] [place] [address] Dr. Maggy Irving Urea nitrogen/Creatinine [Mass ratio] 25.0 mg/mg Normal [facility] Comment on above: Performed By: #### L IPID, T4, TSH, FT3, CMP #### [facility] [address] [place] [address] Dr. Maggy Irving FREE T3on 01-07-2023 FREE T3 3.24 pg/mlL Normal 2.18-3.98 [facility] Comment on above: Performed By: #### L IPID, T4, TSH, FT3, CMP #### [facility] [address] [address] [address] Maggy Irving T4on 01-07-2023 T4 [Mass/Vol] 9.10 ug/dL Normal 4.50-12.10 [facility] Comment on above: Performed By: #### L IPID, T4, TSH, FT3, CMP #### [facility] [address] [address] [address] Maggy Irving TSHon 01-07-2023 TSH 5.957 uIU/mL Critically high 0.358-3.740 [facility] Comment on above: Performed By: #### L IPID, T4, TSH, FT3, CMP #### [facility] [address] [address] [address] Maggy Irving NM STRESS/REST MULTIon 01-03 NM STRESS/REST MULTI Patient: SILVINO OJEDA Exam Date: 01/03/2023 : 1950 Gender:M Ordering : DR MARCELLA GROSS . Admission #: [id number] Family : Order #: [id number] CLICK HERE TO VIEW EXAM RADIOLOGY REPORT [...] Khanna M.D. on 01/04/2023 at 07:[address] [facility] ECHOCARDIO M/2D COMPLETEon 0 12-21-2022 ECHOCARDIO M/2D COMPLETE Patient: SILVINO OJEDA Exam Date: 12/21/2022 : 1950 Gender:M Ordering : DR MARCELLA GROSS . Admission #: [id number] Family : Order #: [id number] CLICK HERE TO VIEW EXAM ECHOCARDIOGRAM REPORT [...] M.D. on 12/23/2022 at 18:05 Normal [facility] BNPon 12-07-2022 Natriuretic peptide B (Bld) [Mass/Vol] 37.0 pg/mL Normal <=900.0 [facility] Comment on above: Performed By: #### L IPID, T4, TSH, FT3, CMP #### [facility] [address] [place] [address] Dr. Maggy Irving CBC AUTO DIFFon 12-07-2022 BASO # 0.0 103/ul Normal 0.0-0.1 [facility] Comment on above: Performed By: #### L IPID, T4, TSH, FT3, CMP #### [facility] [address] [place] [address] Dr. Maggy Irving Basophils/100 WBC (Bld) 0.2 % Normal 0.2-2.0 [facility] Comment on above: Performed By: #### L IPID, T4, TSH, FT3, CMP #### [facility] [address] [place] [address] Dr. Maggy Irving EO # 0.2 103/ul Normal 0.0-0.7 [facility] Comment on above: Performed By: #### L IPID, T4, TSH, FT3, CMP #### [facility] [address] [place] [address] Dr. Maggy Irving Eosinophils/100 WBC (Bld) 3.7 % Normal 0.9-7.0 [facility] Comment on above: Performed By: #### L IPID, T4, TSH, FT3, CMP #### [facility] [address] [place] [address] Dr. Maggy Irving Erythrocyte distribution width (RBC) [Ratio] 11.9 % Normal 11.0-15.0 [facility] Comment on above: Performed By: #### L IPID, T4, TSH, FT3, CMP #### [facility] [address] [place] [address] Dr. Maggy Irving Hematocrit (Bld) [Volume fraction] 39.7 % Critically low 42.0-54.0 [facility] Comment on above: Performed By: #### L IPID, T4, TSH, FT3, CMP #### [facility] [address] [place] [address] Dr. Maggy Irving Hemoglobin (Bld) [Mass/Vol] 14.0 g/dL Normal 14.0-18.0 [facility] Comment on above: Performed By: #### L IPID, T4, TSH, FT3, CMP #### [facility] [address] [place] [address] Dr. Maggy Irving IG # 0.02 10e3/ul Normal 0.00-0.03 [facility] Comment on above: Performed By: #### L IPID, T4, TSH, FT3, CMP #### [facility] [address] [place] [address] Dr. Maggy Irving IG % 0.5 % Normal 0.0-0.5 [facility] Comment on above: Performed By: #### L IPID, T4, TSH, FT3, CMP #### [facility] [address] [place] [address] Dr. Maggy Irving LYMPH # 0.9 103/ul Critically low 1.2-3.8 [facility] Comment on above: Performed By: #### L IPID, T4, TSH, FT3, CMP #### [facility] [address] [place] [address] Dr. Maggy Irving Lymphocytes/100 WBC (Bld) 21.1 % Normal 20.5-60.0 [facility] Comment on above: Performed By: #### L IPID, T4, TSH, FT3, CMP #### [facility] [address] [place] [address] Dr. Maggy Irving MANUAL DIFF REQ NO Normal [facility] Comment on above: Performed By: #### L IPID, T4, TSH, FT3, CMP #### [facility] [address] [place] [address] Dr. Maggy Irving MCH (RBC) [Entitic mass] 30.5 pg Normal 25.9-34.0 [facility] Comment on above: Performed By: #### L IPID, T4, TSH, FT3, CMP #### [facility] [address] [place] [address] Dr. Maggy Irving MCHC (RBC) [Mass/Vol] 35.3 g/dL Critically high 29.9-35.2 [facility] Comment on above: Performed By: #### L IPID, T4, TSH, FT3, CMP #### [facility] [address] [place] [address] Dr. Maggy Irving MCV (RBC) [Entitic vol] 86.5 fL Normal 80.0-94.0 [facility] Comment on above: Performed By: #### L IPID, T4, TSH, FT3, CMP #### [facility] [address] [place] [address] Dr. Maggy Irving MONO # 0.4 103/ul Normal 0.3-0.8 [facility] Comment on above: Performed By: #### L IPID, T4, TSH, FT3, CMP #### [facility] [address] [place] [address] Dr. Maggy Irving Monocytes/100 WBC (Bld) 8.7 % Normal 1.7-12.0 [facility] Comment on above: Performed By: #### L IPID, T4, TSH, FT3, CMP #### [facility] [address] [place] [address] Dr. Maggy Irving NEUT # 2.9 103/ul Normal 1.4-6.5 [facility] Comment on above: Performed By: #### L IPID, T4, TSH, FT3, CMP #### [facility] [address] [place] [address] Dr. Maggy Irving Neutrophils/100 WBC (Bld) 65.8 % Normal 43.0-75.0 [facility] Comment on above: Performed By: #### L IPID, T4, TSH, FT3, CMP #### [facility] [address] [place] [address] Dr. Maggy Irving Platelet mean volume (Bld) [Entitic vol] 9.9 fL Normal 9.5-13.5 [facility] Comment on above: Performed By: #### L IPID, T4, TSH, FT3, CMP #### [facility] [address] [address] [address] Maggy Irving PLT 128 103/ul Critically low 150-450 [facility] Comment on above: Performed By: #### L IPID, T4, TSH, FT3, CMP #### [facility] [address] [address] [address] Maggy Irving RBC 4.59 106/ul Critically low 4.70-6.10 [facility] Comment on above: Performed By: #### L IPID, T4, TSH, FT3, CMP #### [facility] [address] [place] [address] Dr. Maggy Irving WBC 4.4 103/ul Normal 4.0-11.0 [facility] Comment on above: Performed By: #### L IPID, T4, TSH, FT3, CMP #### [facility] [address] [place] [address] Dr. Maggy Irving FREE THYROXINE INDEX T7on FTI 2.72 Normal 1.30-4.50 [facility] Comment on above: Performed By: #### L IPID, T4, TSH, FT3, CMP #### [facility] [address] [place] [address] Dr. Maggy Irving T3U 34.0 % Normal 33.0-40.0 [facility] Comment on above: Performed By: #### L IPID, T4, TSH, FT3, CMP #### [facility] [address] [place] [address] Dr. Maggy Irving T4 [Mass/Vol] 8.00 ug/dL Normal 4.50-12.10 [facility] Comment on above: Performed By: #### L IPID, T4, TSH, FT3, CMP #### [facility] [address] [place] [address] Dr. Maggy Irving IRONon 12-07-2022 Iron [Mass/Vol] 134.0 ug/dL Normal 65.0-175.0 [facility] Comment on above: Performed By: #### L IPID, T4, TSH, FT3, CMP #### [facility] [address] [address] [address] Maggy Irving LIPID PROFILEon 12-07-2022 CHOL-HDL RATIO NORM SEE BELOW Normal [facility] Comment on above: Result Comment: 3.3 - 4.4 LOW RISK 4.4 - 7.1 AVERAGE RISK 7.1 - 11.0 MODERATE RISK >11.0 HIGH RISK Performed By: #### L IPID, T4, TSH, FT3, CMP #### [facility] [address] [address] [address] Maggy Irving Cholesterol [Mass/Vol] 180 mg/dL Normal <=200 [facility] Comment on above: Performed By: #### L IPID, T4, TSH, FT3, CMP #### [facility] [address] [place] [address] Dr. Maggy Irving Cholesterol in HDL [Mass/Vol] 37 mg/dL Critically low 40-60 [facility] Comment on above: Performed By: #### L IPID, T4, TSH, FT3, CMP #### [facility] [address] [place] [address] Dr. Maggy Irving Cholesterol in LDL [Mass/Vol] 95.2 mg/dL Normal [facility] Comment on above: Performed By: #### L IPID, T4, TSH, FT3, CMP #### [facility] [address] [place] [address] Dr. Maggy Irving Cholesterol.total/Ch olesterol in HDL [Mass ratio] 4.9 {ratio} Normal [facility] Comment on above: Performed By: #### L IPID, T4, TSH, FT3, CMP #### [facility] [address] [place] [address] Dr. Maggy Irving HDL NORMAL > or = 60 mg/dl - LO W CARDIOVASCULAR RISK <40 mg/dl - HIGH CARDIOVASCULAR RISK Normal [facility] Comment on above: Performed By: #### L IPID, T4, TSH, FT3, CMP #### [facility] [address] [address] [address] Maggy Irving LDL CALC NORMAL SEE BELOW Normal [facility] Comment on above: Result Comment: <100 mg/dl OPTIMAL 100 - 129 mg/dl NEAR OR ABOVE OPTIMAL 130 - 159 mg/dl BORDERLINE HIGH 160 - 189 mg/dl HIGH >190 mg/dl VERY HIGH Performed By: #### L IPID, T4, TSH, FT3, CMP #### [facility] [address] [address] [address] Maggy Irving Triglyceride [Mass/Vol] 239 mg/dL Critically high <=150 [facility] Comment on above: Performed By: #### L IPID, T4, TSH, FT3, CMP #### [facility] [address] [place] [address] Dr. Maggy Irving VLDL CALC 47.8 mg/dL Normal [facility] Comment on above: Performed By: #### L IPID, T4, TSH, FT3, CMP #### [facility] [address] [place] [address] Dr. Maggy Irving PROF 14(COMP METB)on 023 Albumin [Mass/Vol] 3.8 g/dL Normal 3.4-5.0 [facility] Comment on above: Performed By: #### L IPID, T4, TSH, FT3, CMP #### [facility] [address] [place] [address] Dr. Maggy Irving Albumin/Globulin [Mass ratio] 1.1 {ratio} Normal [facility] Comment on above: Performed By: #### L IPID, T4, TSH, FT3, CMP #### [facility] [address] [address] [address] Maggy Irving ALP [Catalytic activity/Vol] 53 U/L Normal 46-116 [facility] Comment on above: Performed By: #### L IPID, T4, TSH, FT3, CMP #### [facility] [address] [address] [address] Maggy Irving ALT [Catalytic activity/Vol] 43 U/L Normal 16-63 [facility] Comment on above: Performed By: #### L IPID, T4, TSH, FT3, CMP #### [facility] [address] [address] [address] Maggy Irving Anion gap [Moles/Vol] 12.2 mmol/L Normal [facility] Comment on above: Performed By: #### L IPID, T4, TSH, FT3, CMP #### [facility] [address] [place] [address] Dr. Maggy Irving AST [Catalytic activity/Vol] 22 U/L Normal 15-37 [facility] Comment on above: Performed By: #### L IPID, T4, TSH, FT3, CMP #### [facility] [address] [place] [address] Dr. Maggy Irving Bilirubin [Mass/Vol] 0.6 mg/dL Normal 0.2-1.0 [facility] Comment on above: Performed By: #### L IPID, T4, TSH, FT3, CMP #### [facility] [address] [place] [address] Dr. Maggy Irving Calcium [Mass/Vol] 8.9 mg/dL Normal 8.5-10.1 [facility] Comment on above: Performed By: #### L IPID, T4, TSH, FT3, CMP #### [facility] [address] [place] [address] Dr. Maggy Irving Chloride [Moles/Vol] 104 mmol/L Normal 98-107 [facility] Comment on above: Performed By: #### L IPID, T4, TSH, FT3, CMP #### [facility] [address] [place] [address] Dr. Maggy Irving CO2 [Moles/Vol] 28.8 mmol/L Normal 21.0-32.0 [facility] Comment on above: Performed By: #### L IPID, T4, TSH, FT3, CMP #### [facility] [address] [place] [address] Dr. Maggy Irving Creatinine [Mass/Vol] 0.83 mg/dL Normal 0.70-1.30 [facility] Comment on above: Performed By: #### L IPID, T4, TSH, FT3, CMP #### [facility] [address] [address] [address] Maggy Irving EGFR-AF MALAYSIAN >60 Normal >=60 [facility] Comment on above: Performed By: #### L IPID, T4, TSH, FT3, CMP #### [facility] [address] [address] [address] Maggy Irving EGFR-NON AF MALAYSIAN >60 Normal >=60 [facility] Comment on above: Performed By: #### L IPID, T4, TSH, FT3, CMP #### [facility] [address] [place] [address] Dr. Maggy Irving Globulin (S) [Mass/Vol] 3.4 g/dL Normal [facility] Comment on above: Performed By: #### L IPID, T4, TSH, FT3, CMP #### [facility] [address] [address] [address] Maggy Irving Glucose [Mass/Vol] 116 mg/dL Critically high 74-106 T [facility] Comment on above: Performed By: #### L IPID, T4, TSH, FT3, CMP #### [facility] [address] [address] [address] Maggy Irving Potassium [Moles/Vol] 4.0 mmol/L Normal 3.5-5.1 [facility] Comment on above: Performed By: #### L IPID, T4, TSH, FT3, CMP #### [facility] [address] [place] [address] Dr. Maggy Irving Protein [Mass/Vol] 7.2 g/dL Normal 6.4-8.2 [facility] Comment on above: Performed By: #### L IPID, T4, TSH, FT3, CMP #### [facility] [address] [place] [address] Dr. Maggy Irving Sodium [Moles/Vol] 141 mmol/L Normal 136-145 [facility] Comment on above: Performed By: #### L IPID, T4, TSH, FT3, CMP #### [facility] [address] [place] [address] Dr. Maggy Irving Urea nitrogen [Mass/Vol] 17.0 mg/dL Normal 7.0-18.0 [facility] Comment on above: Performed By: #### L IPID, T4, TSH, FT3, CMP #### [facility] [address] [address] [address] Maggy Irving Urea nitrogen/Creatinine [Mass ratio] 20.5 mg/mg Normal [facility] Comment on above: Performed By: #### L IPID, T4, TSH, FT3, CMP #### [facility] [address] [address] [address] Maggy Irving TSHon 12-07-2022 TSH 5.531 uIU/mL Critically high 0.358-3.740 [facility] Comment on above: Performed By: #### L IPID, T4, TSH, FT3, CMP #### [facility] [address] [place] [address] Dr. Maggy Irving TESTOSTERONE, TOTALon 2021 Testosterone [Mass/Vol] 390 ng/dL Normal 264-916 [facility] Comment on above: Result Comment: Adul t male reference interval is based on a population of healthy nonobese males (BMI <30) between 19 and 39 years old. Reynaldo et.al. JCEM 2017,102;1406-5779. PMID: [id number]. Performed By: #### L IPID, T4, TSH, FT3, CMP #### [facility] [address] [place] [address] Dr. Maggy Irving CBC AUTO DIFFon 04-09-2022 BASO # 0.0 103/ul Normal 0.0-0.1 [facility] Comment on above: Performed By: #### L IPID, T4, TSH, FT3, CMP #### [facility] [address] [place] [address] Dr. Maggy Irving Basophils/100 WBC (Bld) 0.2 % Normal 0.2-2.0 [facility] Comment on above: Performed By: #### L IPID, T4, TSH, FT3, CMP #### [facility] [address] [place] [address] Dr. Maggy Irving EO # 0.2 103/ul Normal 0.0-0.7 [facility] Comment on above: Performed By: #### L IPID, T4, TSH, FT3, CMP #### [facility] [address] [place] [address] Dr. Maggy Irving Eosinophils/100 WBC (Bld) 3.1 % Normal 0.9-7.0 [facility] Comment on above: Performed By: #### L IPID, T4, TSH, FT3, CMP #### [facility] [address] [place] [address] Dr. Maggy Irving Erythrocyte distribution width (RBC) [Ratio] 12.3 % Normal 11.0-15.0 [facility] Comment on above: Performed By: #### L IPID, T4, TSH, FT3, CMP #### [facility] [address] [place] [address] Dr. Maggy Irving Hematocrit (Bld) [Volume fraction] 41.6 % Critically low 42.0-54.0 [facility] Comment on above: Performed By: #### L IPID, T4, TSH, FT3, CMP #### [facility] [address] [place] [address] Dr. Maggy Irving Hemoglobin (Bld) [Mass/Vol] 14.6 g/dL Normal 14.0-18.0 [facility] Comment on above: Performed By: #### L IPID, T4, TSH, FT3, CMP #### [facility] [address] [place] [address] Dr. Maggy Irving IG # 0.02 10e3/ul Normal 0.00-0.03 [facility] Comment on above: Performed By: #### L IPID, T4, TSH, FT3, CMP #### [facility] [address] [place] [address] Dr. Maggy Irving IG % 0.4 % Normal 0.0-0.5 [facility] Comment on above: Performed By: #### L IPID, T4, TSH, FT3, CMP #### [facility] [address] [place] [address] Dr. Maggy Irving LYMPH # 0.9 103/ul Critically low 1.2-3.8 [facility] Comment on above: Performed By: #### L IPID, T4, TSH, FT3, CMP #### [facility] [address] [place] [address] Dr. Maggy Irving Lymphocytes/100 WBC (Bld) 17.9 % Critically low 20.5-60.0 [facility] Comment on above: Performed By: #### L IPID, T4, TSH, FT3, CMP #### [facility] [address] [place] [address] Dr. Maggy Irving MANUAL DIFF REQ NO Normal [facility] Comment on above: Performed By: #### L IPID, T4, TSH, FT3, CMP #### [facility] [address] [place] [address] Dr. Maggy Irving MCH (RBC) [Entitic mass] 31.1 pg Normal 25.9-34.0 [facility] Comment on above: Performed By: #### L IPID, T4, TSH, FT3, CMP #### [facility] [address] [place] [address] Dr. Maggy Irving MCHC (RBC) [Mass/Vol] 35.1 g/dL Normal 29.9-35.2 [facility] Comment on above: Performed By: #### L IPID, T4, TSH, FT3, CMP #### [facility] [address] [place] [address] Dr. Maggy Irving MCV (RBC) [Entitic vol] 88.5 fL Normal 80.0-94.0 [facility] Comment on above: Performed By: #### L IPID, T4, TSH, FT3, CMP #### [facility] [address] [place] [address] Dr. Maggy Irving MONO # 0.4 103/ul Normal 0.3-0.8 [facility] Comment on above: Performed By: #### L IPID, T4, TSH, FT3, CMP #### [facility] [address] [address] [address] Maggy Irving Monocytes/100 WBC (Bld) 8.7 % Normal 1.7-12.0 [facility] Comment on above: Performed By: #### L IPID, T4, TSH, FT3, CMP #### [facility] [address] [place] [address] Dr. Maggy Irving NEUT # 3.4 103/ul Normal 1.4-6.5 [facility] Comment on above: Performed By: #### L IPID, T4, TSH, FT3, CMP #### [facility] [address] [place] [address] Dr. Maggy Irving Neutrophils/100 WBC (Bld) 69.7 % Normal 43.0-75.0 [facility] Comment on above: Performed By: #### L IPID, T4, TSH, FT3, CMP #### [facility] [address] [place] [address] Dr. Maggy Irving Platelet mean volume (Bld) [Entitic vol] 9.9 fL Normal 9.5-13.5 [facility] Comment on above: Performed By: #### L IPID, T4, TSH, FT3, CMP #### [facility] [address] [place] [address] Dr. Maggy Irving PLT 121 103/ul Critically low 150-450 [facility] Comment on above: Performed By: #### L IPID, T4, TSH, FT3, CMP #### [facility] [address] [place] [address] Dr. Maggy Irving RBC 4.70 106/ul Normal 4.70-6.10 [facility] Comment on above: Performed By: #### L IPID, T4, TSH, FT3, CMP #### [facility] [address] [place] [address] Dr. Maggy Irving WBC 4.8 103/ul Normal 4.0-11.0 [facility] Comment on above: Performed By: #### L IPID, T4, TSH, FT3, CMP #### [facility] [address] [place] [address] Dr. Maggy Irving FREE T3on 04-09-2022 FREE T3 3.15 pg/mlL Normal 2.18-3.98 [facility] Comment on above: Performed By: #### L IPID, T4, TSH, FT3, CMP #### [facility] [address] [place] [address] Dr. Maggy Irving GLYCOHEMOGLOBIN A1Con 2021 ADA RECOMMENDATION SEE BELOW Normal [facility] Comment on above: Result Comment: ADA RECOMMENDED LIMIT 4.0 - 6.0 ADA THERAPEUTIC TARGET < 7.0 ACTION SUGGESTED > 7.0 Performed By: #### L IPID, T4, TSH, FT3, CMP #### [facility] [address] [place] [address] Dr. Maggy Irving Glucose [Mass/Vol] 123 mg/dL Normal [facility] Comment on above: Performed By: #### L IPID, T4, TSH, FT3, CMP #### [facility] [address] [place] [address] Dr. Maggy Irving HbA1c (Bld) [Mass fraction] 5.9 % Normal 4.5-6.2 [facility] Comment on above: Performed By: #### L IPID, T4, TSH, FT3, CMP #### [facility] [address] [place] [address] Dr. Maggy Irving LIPID PROFILEon 04-09-2022 CHOL-HDL RATIO NORM SEE BELOW Normal [facility] Comment on above: Result Comment: 3.3 - 4.4 LOW RISK 4.4 - 7.1 AVERAGE RISK 7.1 - 11.0 MODERATE RISK >11.0 HIGH RISK Performed By: #### L IPID, T4, TSH, FT3, CMP #### [facility] [address] [place] [address] Dr. Maggy Irving Cholesterol [Mass/Vol] 174 mg/dL Normal <=200 [facility] Comment on above: Performed By: #### L IPID, T4, TSH, FT3, CMP #### [facility] [address] [address] [address] Maggy Irving Cholesterol in HDL [Mass/Vol] 36 mg/dL Critically low 40-60 [facility] Comment on above: Performed By: #### L IPID, T4, TSH, FT3, CMP #### [facility] [address] [address] [address] Maggy Irving Cholesterol in LDL [Mass/Vol] 114.4 mg/dL Normal [facility] Comment on above: Performed By: #### L IPID, T4, TSH, FT3, CMP #### [facility] [address] [address] [address] Maggy Irving Cholesterol.total/Ch olesterol in HDL [Mass ratio] 4.8 {ratio} Normal [facility] Comment on above: Performed By: #### L IPID, T4, TSH, FT3, CMP #### [facility] [address] [address] [address] Maggy Irving HDL NORMAL > or = 60 mg/dl - LO W CARDIOVASCULAR RISK <40 mg/dl - HIGH CARDIOVASCULAR RISK Normal [facility] Comment on above: Performed By: #### L IPID, T4, TSH, FT3, CMP #### [facility] [address] [address] [address] Maggy Irving LDL CALC NORMAL SEE BELOW Normal [facility] Comment on above: Result Comment: <100 mg/dl OPTIMAL 100 - 129 mg/dl NEAR OR ABOVE OPTIMAL 130 - 159 mg/dl BORDERLINE HIGH 160 - 189 mg/dl HIGH >190 mg/dl VERY HIGH Performed By: #### L IPID, T4, TSH, FT3, CMP #### [facility] [address] [address] [address] Maggy Irving Triglyceride [Mass/Vol] 118 mg/dL Normal <=150 [facility] Comment on above: Performed By: #### L IPID, T4, TSH, FT3, CMP #### [facility] [address] [address] [address] Maggy Irving VLDL CALC 23.6 mg/dL Normal [facility] Comment on above: Performed By: #### L IPID, T4, TSH, FT3, CMP #### [facility] [address] [address] [address] Maggy Irving OCC BLD IMMUNO SCREENon 03-20 OCCULT BLOOD Negative Normal NEGATIVE [facility] Comment on above: Performed By: #### O BSCRN #### [facility] [address] [place] [address] Dr. Maggy Irving PROF 14(COMP METB)on 022 Albumin [Mass/Vol] 3.6 g/dL Normal 3.4-5.0 [facility] Comment on above: Performed By: #### L IPID, T4, TSH, FT3, CMP #### [facility] [address] [place] [address] Dr. Maggy Irving Albumin/Globulin [Mass ratio] 1.1 {ratio} Normal [facility] Comment on above: Performed By: #### L IPID, T4, TSH, FT3, CMP #### [facility] [address] [place] [address] Dr. Maggy Irving ALP [Catalytic activity/Vol] 47 U/L Normal 46-116 [facility] Comment on above: Performed By: #### L IPID, T4, TSH, FT3, CMP #### [facility] [address] [place] [address] Dr. Maggy Irving ALT [Catalytic activity/Vol] 31 U/L Normal 16-63 [facility] Comment on above: Performed By: #### L IPID, T4, TSH, FT3, CMP #### [facility] [address] [place] [address] Dr. Maggy Irving Anion gap [Moles/Vol] 10.2 mmol/L Normal [facility] Comment on above: Performed By: #### L IPID, T4, TSH, FT3, CMP #### [facility] [address] [place] [address] Dr. Maggy Irving AST [Catalytic activity/Vol] 17 U/L Normal 15-37 [facility] Comment on above: Performed By: #### L IPID, T4, TSH, FT3, CMP #### [facility] [address] [place] [address] Dr. Maggy Irving Bilirubin [Mass/Vol] 0.6 mg/dL Normal 0.2-1.0 [facility] Comment on above: Performed By: #### L IPID, T4, TSH, FT3, CMP #### [facility] [address] [place] [address] Dr. Maggy Irving Calcium [Mass/Vol] 8.1 mg/dL Critically low 8.5-10.1 [facility] Comment on above: Performed By: #### L IPID, T4, TSH, FT3, CMP #### [facility] [address] [place] [address] Dr. Maggy Irving Chloride [Moles/Vol] 105 mmol/L Normal 98-107 [facility] Comment on above: Performed By: #### L IPID, T4, TSH, FT3, CMP #### [facility] [address] [place] [address] Dr. Maggy Irving CO2 [Moles/Vol] 29.6 mmol/L Normal 21.0-32.0 [facility] Comment on above: Performed By: #### L IPID, T4, TSH, FT3, CMP #### [facility] [address] [place] [address] Dr. Maggy Irving Creatinine [Mass/Vol] 0.89 mg/dL Normal 0.70-1.30 [facility] Comment on above: Performed By: #### L IPID, T4, TSH, FT3, CMP #### [facility] [address] [place] [address] Dr. Maggy Irving EGFR-AF MALAYSIAN >60 Normal >=60 [facility] Comment on above: Performed By: #### L IPID, T4, TSH, FT3, CMP #### [facility] [address] [place] [address] Dr. Maggy Irving EGFR-NON AF MALAYSIAN >60 Normal >=60 [facility] Comment on above: Performed By: #### L IPID, T4, TSH, FT3, CMP #### [facility] [address] [place] [address] Dr. Maggy Irving Globulin (S) [Mass/Vol] 3.2 g/dL Normal [facility] Comment on above: Performed By: #### L IPID, T4, TSH, FT3, CMP #### [facility] [address] [place] [address] Dr. Maggy Irving Glucose [Mass/Vol] 110 mg/dL Critically high 74-106 T [facility] Comment on above: Performed By: #### L IPID, T4, TSH, FT3, CMP #### [facility] [address] [place] [address] Dr. Maggy Irving Potassium [Moles/Vol] 3.8 mmol/L Normal 3.5-5.1 [facility] Comment on above: Performed By: #### L IPID, T4, TSH, FT3, CMP #### [facility] [address] [place] [address] Dr. Maggy Irving Protein [Mass/Vol] 6.8 g/dL Normal 6.4-8.2 [facility] Comment on above: Performed By: #### L IPID, T4, TSH, FT3, CMP #### [facility] [address] [place] [address] Dr. Maggy Irving Sodium [Moles/Vol] 141 mmol/L Normal 136-145 [facility] Comment on above: Performed By: #### L IPID, T4, TSH, FT3, CMP #### [facility] [address] [place] [address] Dr. Maggy Irving Urea nitrogen [Mass/Vol] 17.0 mg/dL Normal 7.0-18.0 [facility] Comment on above: Performed By: #### L IPID, T4, TSH, FT3, CMP #### [facility] [address] [place] [address] Dr. Maggy Irving Urea nitrogen/Creatinine [Mass ratio] 19.1 mg/mg Normal [facility] Comment on above: Performed By: #### L IPID, T4, TSH, FT3, CMP #### [facility] [address] [place], [place] [address] Dr. Maggy Irving T4on 04-09-2022 T4 [Mass/Vol] 7.90 ug/dL Normal 4.50-12.10 [facility] Comment on above: Performed By: #### L IPID, T4, TSH, FT3, CMP #### [facility] [id number] Maggy Irving TSHon 04-09-2022 TSH 4.949 uIU/mL Critically high 0.358-3.740 [facility] Comment on above: Performed By: #### L IPID, T4, TSH, FT3, CMP #### [facility] [address] [address] [address] Maggy Irving Vital Signs Date Time Vital Sign Value Performing Clinician Faci lity 04-06-2024 09:43-0400 Body height 177.8 cm [facility] 04-06-2024 09:43-0400 Body mass index (BMI) [Ratio] 34.4 kg/m2 [facility] 04-06-2024 09:43-0400 Body temperature 98.3 [degF] [facility] 04-06-2024 09:43-0400 Body weight 109.08 kg [facility] 04-06-2024 09:43-0400 Diastolic blood pressure 78 mm[Hg] [facility] 04-06-2024 09:43-0400 Heart rate 87 /min [facility] 04-06-2024 09:43-0400 Respiratory rate 18 /min [facility] 04-06-2024 09:43-0400 SaO2% (BldA) [Mass fraction] 96 % [facility] 04-06-2024 09:43-0400 Systolic blood pressure 146 mm[Hg] [facility] Encounters Encounter Date Encounter Type Care Provider Facility Start: 06-04-2025 ambulatory Chirag STINSON Facility :[facility] Start: 05-07-2025 ambulatory Chirag STINSON Facility:[facility] Start: 04-27-2024 End: 04-27-2024 ambulatory Marcella Gross [facility] Work Phone: Start: 04-27-2024 End: 04-27-2024 Departed Referred MD Marcella Gross Work Phone: [facility] Start: 04-06-2024 End: 04-06-2024 ambulatory [facility] Work Phone: Start: 04-06-2024 End: 04-06-2024 Patient encounter procedure [facility] Work Phone: Start: 02-10-2023 End: 02-11-2023 ambulatory IVELISSE ORNELAS Facility:[facility] Start: 02-07-2023 End: 02-07-2023 ambulatory IVELISSE ORNELAS Facility:[facility] Start: 02-06-2023 Encounter for preprocedural laboratory examination IVELISSE ORNELAS [facility] Start: 01-31-2023 End: 02-01-[address] [...] L IPID, T4, TSH, FT3, CMP #### [facility] [address] [place] [address] Dr. Maggy Irving Payers Date Payer Category Payer Self-pay 1959 Medicare [id number] 1957 Unknown [id number] 1950 Unknown [id number] 2.16.84 [id number] 1950 Unknown [id number] 2.16.84 [id number] 1950 Unknown [id number] 2.16.84 0.1.351466.3.579.2.593 1950 Unknown [id number] 2.16.84 0.1.613565.3.579.2.593 1950 Unknown [id number] 2.16.84 0.1.298822.3.579.2.593 1950 Unknown [id number] 2.16.84 0.1.992438.3.579.2.593 1952 Unknown [id number] 2.16.84 0.1.246177.3.579.2.593 1952 Unknown [id number] 2.16.84 0.1.482881.3.579.2.593 1952 Unknown [id number] 2.16.84 0.1.471824.3.579.2.593 1952 Unknown [id number] 2.16.84 0.1.913705.3.579.2.593 1950 Unknown [id number] 2.16.84 0.1.537115.3.579.2.593 1950 Unknown [id number] 2.16.8 40.1.794596.3.579.2.727 Medicare Medicare [id number] Unknown [id number] 2.16.8 [id number] Social History Date Type Detail [facility] Work Phone: Start: 1950 Sex Assigned At Male F [facility] Clinical Note 02-07-2023 Note Date & [...] authenticated by: OLVIN KHANNA Date: 2023-02-07 09:41 [facility] Evaluation note Note Date & Type Note Facility Evaluation note Diagnosis Onset Date Bacterial conjunctivitis of right eye acute [facility] Work Phone: Summary Purpose Family [...] content) No Status Records FoundNo Status Records FoundNo Status Records Found INFORMATION SOURCE (unrecogn ized section and content) DATE CREATED AUTHOR 02/25/[address] [facility] DATE CREATED AUTHOR AUTHOR'S ORGANIZ ATION 05/02/2024 [facility] DATE CREATED AUTHOR AUTHOR'S ORGANIZ ATION 05/08/2025 [facility] Care Teams (unrecognized sec tion and content) [...] BE BASED ON THE PRIMARY CLINICAL RECORDS. [facility]. provides no warranty or guarantee of the accuracy or completeness of information in this document.
--- NOTE | 2025-05-14 06:57 | US_ITS ---
The [address] [address] Patient Name: SILVINO MARVIN MRN: [id number] date: 1950 Sex: M Assigned Patient Location: US Current Patient Location: US Accession/Order Number: [id number] Exam Date: 05/14/2025 07:02 Report Date: 05/14/2025 09:39 At the request of: MARCELLA SALAMANCA MD Procedure: US abdomen complete COMPLETE ABDOMINAL ULTRASOUND CLINICAL HISTORY: D64.9 Anemia, R74.8 Elevated liver enzymes COMPARISON: None The gallbladder is physiologically distended without shadowing calculi, wall thickening or pericholecystic fluid. No intra- or extrahepatic biliary dilatation is evident. The common duct measures 1-2. The liver shows coarsened increased echogenicity. This might be fatty infiltration. There are scattered lobulated cystic structures throughout the liver, some with septation. The largest is at the dome measuring 4.9 x 4.7 x 3.3 cm. There is appropriate hepatopetal flow within the main portal vein. The hepatic veins are patent. The visualized portions of the pancreas show no significant sonographic abnormality. The spleen is within normal limits for size and echogenicity with craniocaudal dimension of 12.8 cm. The right kidney measures 9.3 cm in the left 13.5 cm in craniocaudal dimension . No hydronephrosis is seen. The IVC, as visualized is patent. No aortic aneurysm is noted. There is no ascites. US/US abdomen complete IMPRESSION: POSSIBLE FATTY LIVER WITH MULTIPLE CYSTS. NO GALLBLADDER PATHOLOGY. NO OBSTRUCTIVE UROPATHY. Impression dictated by: Jamilah Mistry M.D. 05/14/2025 9:39 AM Dictation Location: [place] [address] Electronically authenticated by: [id number] Y Date: 05/14/2025 09:39
== END 2025-05-14 06:53 | disposition home or self-care (01) ==
LOC: US 06:52
PROVIDERS: PCP Family Medicine; Visit Provider Family Medicine
DX: D64.9 Anemia, unspecified (principal); R74.8 Abnormal levels of other serum enzymes
CPT/HCPCS: 76700

== ENCOUNTER 2025-05-17 10:00 | Outpatient (OUT) | payer MEDICARE, OTHER, SELFPAY ==
--- OUTSIDE RECORDS SUMMARY | 2025-05-21 15:45 | XMS_ITS | Clinical Summary ---
Author Organization [facility] Address [address] [place] [address] Care Team Providers Care Administrative Representative Name Role Phone Unavailable Primary Care Provider [...]
--- OUTSIDE RECORDS SUMMARY | 2025-05-21 15:52 | XMS_ITS | CCD ---
Author Organization [facility] Care Team Providers Care Lay Out Technician Name Role Phone CHEIKH ., DR NARANJO [...] 04-06-2024 Episodic Other aftercare (1 source) Other snf (current) drug therapy; Translations: [OTH CABIN CREW CURRENT DRUG THERAPY] Onset: 02-16-2023 Episodic Other [...] Test Name Value Interpretation Reference Range Facility [facility] 04-27-2024 L Specimen: [id number] Received: 04/30/24 Status: CASS Moore Num: [id number] Spec Type: Impression Subm Dr: Marcella Gross MD Tissues: PATHPER Procedures: PATHREVIEW Age/ Patient Sex Location Account Attending Physician Silvino Ojeda 74/M LABELL [id number] Marcella Gross MD SPEC NUM: [id number] RECD: 04/30/24 STATUS: CASS MOORE NUM: [id number] KAREN: 04/27/[address]: Marcella Gross MD ENTERED: 04/30/24 [facility] DR: SPEC TYPE: Impression DEPT: ALEXSANDRA Cervantes ENTERED BY: [id number] RECV BY: [id number] ORDERED: PATHREVIEW ORDERED: PATHREVIEW Pathologist Review Abnormal [...] shifted granulocytes, or granulocytic dysplasia observed CPT: 59400 -------- -------- Specimen: [id number] Received: 04/30/24 Status: CASS Moore Num: [id number] Spec Type: Impression Subm Dr: Marcella Gross MD Tissues: PATHPER Procedures: PATHREVIEW -------- Patient: Silvino Ojeda [id number] (Continued) -------- Signed (signature on file) Celia Irving MD 04/30/241945 Normal [facility] CULTURE OTHERon 02-11-2023 CULTURE [...] F Trimethoprim/Sulfamet hoxazole <=10 S F Normal [facility] Comment on above: Performed By: #### L IPID, T4, TSH, FT3, CMP #### [facility] [address] [address] [address] Maggy Irving FUNGAL CULTUREon 02-09-2023 Fungus Stain Final report Normal [place] Comment on above: Performed By: #### L IPID, T4, TSH, FT3, CMP #### [facility] [address] [address] [address] Maggy Irving Result 1 Comment Normal [facility] Comment on above: Result Comment: SUDHIR/ Calcofluor preparation: no fungus observed. Performed By: #### L IPID, T4, TSH, FT3, CMP #### [facility] [address] [place] [address] Dr. Maggy Irving ACID FAST SMEAR AND CXon Acid Fast Smear Negative Normal [facility] Comment on above: Performed By: #### A FB #### [facility] [address] [place] [address] Dr. Maggy Irving [employer] Specimen Processing Tissue Grinding [facility] Comment on above: Performed By: #### A FB #### [facility] [address] [place] [address] Dr. Maggy Irving CULTURE ANAEROBICon 02-08-20 CULTURE ANAEROBIC Isolate 1 Finegoldia magna Light growth of Normal [facility] Comment on above: Result Comment: EVID ENCE BASED PRACTICE BY [facility] HAS DEMONSTRATED THAT FINEGOLDIA SPECIES ARE ROUTINELY SUSCEPTIBLE TO PIPERACILLIN-TAZOBACTAM, CEFOXITIN, ERTAPENEM, IMIPENEM METRONIDAZOLE AND VARIABLY RESISTANT TO CLINDAMYCIN. Performed By: #### L IPID, T4, TSH, FT3, CMP #### [facility] [address] [place] [address] Dr. Maggy Irving GRAM STAINon 02-07-2023 COMMENTS NO ORGANISMS OBSERVED [facility] Comment on above: Performed By: #### G STAIN #### [facility] [address] [place] [address] Dr. Maggy Irving DIPHTHEROIDS Normal [facility] Comment on above: Performed By: #### G STAIN #### [facility] [address] [address] [address] Maggy Irving EPITHELIALS Normal [facility] Comment on above: Performed By: #### G STAIN #### [facility] [address] [address] [address] Maggy Irving FUNGAL ELEMENTS Normal [facility] Comment on above: Performed By: #### G STAIN #### [facility] [address] [address] [address] Maggy Irving GRAM NEG BACILLI Normal [facility] Comment on above: Performed By: #### G STAIN #### [facility] [address] [address] [address] Maggy MENDOZA NEG DIPPLOCOCCI Normal [facility] Comment on above: Performed By: #### G STAIN #### [facility] [address] [address] [address] Maggy Irving GRAM POS BACILLI Normal [facility] Comment on above: Performed By: #### G STAIN #### [facility] [address] [address] [address] Maggy Irving GRAM POSITIVE COCCI Normal [facility] Comment on above: Performed By: #### G STAIN #### [facility] [address] [address] [address] Maggy Irving GRAM STAIN SOURCE 5th Metatarsal Bone Normal [facility] Comment on above: Performed By: #### G STAIN #### [facility] [address] [address] [address] Maggy Irving GS_DIPTH [facility] Comment on above: Performed By: #### G STAIN #### [facility] [address] [address] [address] Maggy Irving WBC RARE Normal [facility] Comment on above: Performed By: #### G STAIN #### [facility] [address] [address] [address] Maggy Irving POINT OF CARE GLUCOSEon 05-2 Glucose [Mass/Vol] 114 mg/dL Critically high 74-106 T [facility] Comment on above: Performed By: #### P OCGLUC #### [facility] [address] [place] [address] Dr. Maggy Irving Glucose [Mass/Vol] 122 mg/dL Critically high 74-106 T [facility] Comment on above: Performed By: #### P OCGLUC #### [facility] [address] [place] [address] Dr. Maggy Irving PROF CHEM 8 (BAS METB)on Anion gap [Moles/Vol] 12.0 mmol/L Normal [facility] Comment on above: Performed By: #### L IPID, T4, TSH, FT3, CMP #### [facility] [address] [place] [address] Dr. Maggy Irving Calcium [Mass/Vol] 8.7 mg/dL Normal 8.5-10.1 [facility] Comment on above: Performed By: #### L IPID, T4, TSH, FT3, CMP #### [facility] [address] [place] [address] Dr. Maggy Irving Chloride [Moles/Vol] 104 mmol/L Normal 98-107 [facility] Comment on above: Performed By: #### L IPID, T4, TSH, FT3, CMP #### [facility] [address] [place] [address] Dr. Maggy Irving CO2 [Moles/Vol] 28.1 mmol/L Normal 21.0-32.0 [facility] Comment on above: Performed By: #### L IPID, T4, TSH, FT3, CMP #### [facility] [address] [place] [address] Dr. Maggy Irving Creatinine [Mass/Vol] 0.80 mg/dL Normal 0.70-1.30 [facility] Comment on above: Performed By: #### L IPID, T4, TSH, FT3, CMP #### [facility] [address] [place] [address] Dr. Maggy Irving EGFR-AF SOLOMON ISLANDER >60 Normal >=60 [facility] Comment on above: Performed By: #### L IPID, T4, TSH, FT3, CMP #### [facility] [address] [address] [address] Maggy Irving EGFR-NON AF SOLOMON ISLANDER >60 Normal >=60 [facility] Comment on above: Performed By: #### L IPID, T4, TSH, FT3, CMP #### [facility] [address] [place] [address] Dr. Maggy Irving Glucose [Mass/Vol] 129 mg/dL Critically high 74-106 T [facility] Comment on above: Performed By: #### L IPID, T4, TSH, FT3, CMP #### [facility] [address] [address] [address] Maggy Irving Potassium [Moles/Vol] 4.1 mmol/L Normal 3.5-5.1 [facility] Comment on above: Performed By: #### L IPID, T4, TSH, FT3, CMP #### [facility] [address] [place] [address] Dr. Maggy Irving Sodium [Moles/Vol] 140 mmol/L Normal 136-145 [facility] Comment on above: Performed By: #### L IPID, T4, TSH, FT3, CMP #### [facility] [address] [address] [address] Maggy Irving Urea nitrogen [Mass/Vol] 20.0 mg/dL Critically high 7.0-18.0 [facility] Comment on above: Performed By: #### L IPID, T4, TSH, FT3, CMP #### [facility] [address] [place] [address] Dr. Maggy Irving Urea nitrogen/Creatinine [Mass ratio] 25.0 mg/mg Normal [facility] Comment on above: Performed By: #### L IPID, T4, TSH, FT3, CMP #### [facility] [address] [place] [address] Dr. Maggy Irving FREE T3on 01-07-2023 FREE T3 3.24 pg/mlL Normal 2.18-3.98 [facility] Comment on above: Performed By: #### L IPID, T4, TSH, FT3, CMP #### [facility] [address] [address] [address] Maggy Irving T4on 01-07-2023 T4 [Mass/Vol] 9.10 ug/dL Normal 4.50-12.10 [facility] Comment on above: Performed By: #### L IPID, T4, TSH, FT3, CMP #### [facility] [address] [address] [address] Maggy Irving TSHon 01-07-2023 TSH 5.957 uIU/mL Critically high 0.358-3.740 [facility] Comment on above: Performed By: #### L IPID, T4, TSH, FT3, CMP #### [facility] [address] [address] [address] Maggy Irving NM STRESS/REST MULTIon 01-03 NM STRESS/REST MULTI Patient: SILVINO OJEDA Exam Date: 01/03/2023 : 1950 Gender:M Ordering : DR MARCELLA GROSS . Admission #: [id number] Family : Order #: [id number] CLICK HERE TO VIEW EXAM RADIOLOGY REPORT [...] Khanna M.D. on 01/04/2023 at 07:45 Normal [facility] ECHOCARDIO M/2D COMPLETEon 0 12-21-2022 ECHOCARDIO M/2D COMPLETE Patient: SILVINO OJEDA Exam Date: 12/21/2022 : 1950 Gender:M Ordering : DR MARCELLA GROSS . Admission #: [id number] Family : Order #: [id number] CLICK HERE TO VIEW EXAM ECHOCARDIOGRAM REPORT [...] M.D. on 12/23/2022 at 18:05 Normal [facility] BNPon 12-07-2022 Natriuretic peptide B (Bld) [Mass/Vol] 37.0 pg/mL Normal <=900.0 [facility] Comment on above: Performed By: #### L IPID, T4, TSH, FT3, CMP #### [facility] [address] [place] [address] Dr. Maggy Irving CBC AUTO DIFFon 12-07-2022 BASO # 0.0 103/ul Normal 0.0-0.1 [facility] Comment on above: Performed By: #### L IPID, T4, TSH, FT3, CMP #### [facility] [address] [place] [address] Dr. Maggy Irving Basophils/100 WBC (Bld) 0.2 % Normal 0.2-2.0 [facility] Comment on above: Performed By: #### L IPID, T4, TSH, FT3, CMP #### [facility] [address] [place] [address] Dr. Maggy Irving EO # 0.2 103/ul Normal 0.0-0.7 [facility] Comment on above: Performed By: #### L IPID, T4, TSH, FT3, CMP #### [facility] [address] [place] [address] Dr. Maggy Irving Eosinophils/100 WBC (Bld) 3.7 % Normal 0.9-7.0 [facility] Comment on above: Performed By: #### L IPID, T4, TSH, FT3, CMP #### [facility] [address] [place] [address] Dr. Maggy Irving Erythrocyte distribution width (RBC) [Ratio] 11.9 % Normal 11.0-15.0 [facility] Comment on above: Performed By: #### L IPID, T4, TSH, FT3, CMP #### [facility] [address] [place] [address] Dr. Maggy Irving Hematocrit (Bld) [Volume fraction] 39.7 % Critically low 42.0-54.0 [facility] Comment on above: Performed By: #### L IPID, T4, TSH, FT3, CMP #### [facility] [address] [place] [address] Dr. Maggy Irving Hemoglobin (Bld) [Mass/Vol] 14.0 g/dL Normal 14.0-18.0 [facility] Comment on above: Performed By: #### L IPID, T4, TSH, FT3, CMP #### [facility] [address] [place] [address] Dr. Maggy Irving IG # 0.02 10e3/ul Normal 0.00-0.03 [facility] Comment on above: Performed By: #### L IPID, T4, TSH, FT3, CMP #### [facility] [address] [place] [address] Dr. Maggy Irving IG % 0.5 % Normal 0.0-0.5 [facility] Comment on above: Performed By: #### L IPID, T4, TSH, FT3, CMP #### [facility] [address] [place] [address] Dr. Maggy Irving LYMPH # 0.9 103/ul Critically low 1.2-3.8 [facility] Comment on above: Performed By: #### L IPID, T4, TSH, FT3, CMP #### [facility] [address] [place] [address] Dr. Maggy Irving Lymphocytes/100 WBC (Bld) 21.1 % Normal 20.5-60.0 [facility] Comment on above: Performed By: #### L IPID, T4, TSH, FT3, CMP #### [facility] [address] [place] [address] Dr. Maggy Irving MANUAL DIFF REQ NO Normal [facility] Comment on above: Performed By: #### L IPID, T4, TSH, FT3, CMP #### [facility] [address] [place] [address] Dr. Maggy Irving MCH (RBC) [Entitic mass] 30.5 pg Normal 25.9-34.0 [facility] Comment on above: Performed By: #### L IPID, T4, TSH, FT3, CMP #### [facility] [address] [place] [address] Dr. Maggy Irving MCHC (RBC) [Mass/Vol] 35.3 g/dL Critically high 29.9-35.2 [facility] Comment on above: Performed By: #### L IPID, T4, TSH, FT3, CMP #### [facility] [address] [place] [address] Dr. Maggy Irving MCV (RBC) [Entitic vol] 86.5 fL Normal 80.0-94.0 [facility] Comment on above: Performed By: #### L IPID, T4, TSH, FT3, CMP #### [facility] [address] [place] [address] Dr. Maggy Irving MONO # 0.4 103/ul Normal 0.3-0.8 [facility] Comment on above: Performed By: #### L IPID, T4, TSH, FT3, CMP #### [facility] [address] [place] [address] Dr. Maggy Irving Monocytes/100 WBC (Bld) 8.7 % Normal 1.7-12.0 [facility] Comment on above: Performed By: #### L IPID, T4, TSH, FT3, CMP #### [facility] [address] [place] [address] Dr. Maggy Irving NEUT # 2.9 103/ul Normal 1.4-6.5 [facility] Comment on above: Performed By: #### L IPID, T4, TSH, FT3, CMP #### [facility] [address] [place] [address] Dr. Maggy Irving Neutrophils/100 WBC (Bld) 65.8 % Normal 43.0-75.0 [facility] Comment on above: Performed By: #### L IPID, T4, TSH, FT3, CMP #### [facility] [address] [place] [address] Dr. Maggy Irving Platelet mean volume (Bld) [Entitic vol] 9.9 fL Normal 9.5-13.5 [facility] Comment on above: Performed By: #### L IPID, T4, TSH, FT3, CMP #### [facility] [address] [address] [address] Maggy Irving PLT 128 103/ul Critically low 150-450 [place] Comment on above: Performed By: #### L IPID, T4, TSH, FT3, CMP #### [facility] [address] [address] [address] Maggy Irving RBC 4.59 106/ul Critically low 4.70-6.10 [facility] Comment on above: Performed By: #### L IPID, T4, TSH, FT3, CMP #### [facility] [address] [place] [address] Dr. Maggy Irving WBC 4.4 103/ul Normal 4.0-11.0 [facility] Comment on above: Performed By: #### L IPID, T4, TSH, FT3, CMP #### [facility] [address] [place] [address] Dr. Maggy Irving FREE THYROXINE INDEX T7on FTI 2.72 Normal 1.30-4.50 [facility] Comment on above: Performed By: #### L IPID, T4, TSH, FT3, CMP #### [facility] [address] [place] [address] Dr. Maggy Irving T3U 34.0 % Normal 33.0-40.0 [facility] Comment on above: Performed By: #### L IPID, T4, TSH, FT3, CMP #### [facility] [address] [place] [address] Dr. Maggy Irving T4 [Mass/Vol] 8.00 ug/dL Normal 4.50-12.10 [facility] Comment on above: Performed By: #### L IPID, T4, TSH, FT3, CMP #### [facility] [address] [place] [address] Dr. Maggy Irving IRONon 12-07-2022 Iron [Mass/Vol] 134.0 ug/dL Normal 65.0-175.0 [facility] Comment on above: Performed By: #### L IPID, T4, TSH, FT3, CMP #### [facility] [address] [address] [address] Maggy Irving LIPID PROFILEon 12-07-2022 CHOL-HDL RATIO NORM SEE BELOW Normal [facility] Comment on above: Result Comment: 3.3 - 4.4 LOW RISK 4.4 - 7.1 AVERAGE RISK 7.1 - 11.0 MODERATE RISK >11.0 HIGH RISK Performed By: #### L IPID, T4, TSH, FT3, CMP #### [facility] [address] [address] [address] Maggy Irving Cholesterol [Mass/Vol] 180 mg/dL Normal <=200 [facility] Comment on above: Performed By: #### L IPID, T4, TSH, FT3, CMP #### [facility] [address] [place] [address] Dr. Maggy Irving Cholesterol in HDL [Mass/Vol] 37 mg/dL Critically low 40-60 [facility] Comment on above: Performed By: #### L IPID, T4, TSH, FT3, CMP #### [facility] [address] [place] [address] Dr. Maggy Irving Cholesterol in LDL [Mass/Vol] 95.2 mg/dL Normal [facility] Comment on above: Performed By: #### L IPID, T4, TSH, FT3, CMP #### [facility] [address] [place] [address] Dr. Maggy Irving Cholesterol.total/Ch olesterol in HDL [Mass ratio] 4.9 {ratio} Normal [facility] Comment on above: Performed By: #### L IPID, T4, TSH, FT3, CMP #### [facility] [address] [place] [address] Dr. Maggy Irving HDL NORMAL > or = 60 mg/dl - LO W CARDIOVASCULAR RISK <40 mg/dl - HIGH CARDIOVASCULAR RISK Normal [facility] Comment on above: Performed By: #### L IPID, T4, TSH, FT3, CMP #### [facility] [address] [address] [address] Maggy Irving LDL CALC NORMAL SEE BELOW Normal [facility] Comment on above: Result Comment: <100 mg/dl OPTIMAL 100 - 129 mg/dl NEAR OR ABOVE OPTIMAL 130 - 159 mg/dl BORDERLINE HIGH 160 - 189 mg/dl HIGH >190 mg/dl VERY HIGH Performed By: #### L IPID, T4, TSH, FT3, CMP #### [facility] [address] [address] [address] Maggy Irving Triglyceride [Mass/Vol] 239 mg/dL Critically high <=150 [facility] Comment on above: Performed By: #### L IPID, T4, TSH, FT3, CMP #### [facility] [address] [place] [address] Dr. Maggy Irving VLDL CALC 47.8 mg/dL Normal [facility] Comment on above: Performed By: #### L IPID, T4, TSH, FT3, CMP #### [facility] [address] [place] [address] Dr. Maggy Irving PROF 14(COMP METB)on 023 Albumin [Mass/Vol] 3.8 g/dL Normal 3.4-5.0 [facility] Comment on above: Performed By: #### L IPID, T4, TSH, FT3, CMP #### [facility] [address] [place] [address] Dr. Maggy Irving Albumin/Globulin [Mass ratio] 1.1 {ratio} Normal [facility] Comment on above: Performed By: #### L IPID, T4, TSH, FT3, CMP #### [facility] [address] [address] [address] Maggy Irving ALP [Catalytic activity/Vol] 53 U/L Normal 46-116 [facility] Comment on above: Performed By: #### L IPID, T4, TSH, FT3, CMP #### [facility] [address] [address] [address] Maggy Irving ALT [Catalytic activity/Vol] 43 U/L Normal 16-63 [facility] Comment on above: Performed By: #### L IPID, T4, TSH, FT3, CMP #### [facility] [address] [address] [address] Maggy Irving Anion gap [Moles/Vol] 12.2 mmol/L Normal [facility] Comment on above: Performed By: #### L IPID, T4, TSH, FT3, CMP #### [facility] [address] [place] [address] Dr. Maggy Irving AST [Catalytic activity/Vol] 22 U/L Normal 15-37 [facility] Comment on above: Performed By: #### L IPID, T4, TSH, FT3, CMP #### [facility] [address] [place] [address] Dr. Maggy Irving Bilirubin [Mass/Vol] 0.6 mg/dL Normal 0.2-1.0 [facility] Comment on above: Performed By: #### L IPID, T4, TSH, FT3, CMP #### [facility] [address] [place] [address] Dr. Maggy Irving Calcium [Mass/Vol] 8.9 mg/dL Normal 8.5-10.1 [facility] Comment on above: Performed By: #### L IPID, T4, TSH, FT3, CMP #### [facility] [address] [place] [address] Dr. Maggy Irving Chloride [Moles/Vol] 104 mmol/L Normal 98-107 [facility] Comment on above: Performed By: #### L IPID, T4, TSH, FT3, CMP #### [facility] [address] [place] [address] Dr. Maggy Irving CO2 [Moles/Vol] 28.8 mmol/L Normal 21.0-32.0 [facility] Comment on above: Performed By: #### L IPID, T4, TSH, FT3, CMP #### [facility] [address] [place] [address] Dr. Maggy Irving Creatinine [Mass/Vol] 0.83 mg/dL Normal 0.70-1.30 [facility] Comment on above: Performed By: #### L IPID, T4, TSH, FT3, CMP #### [facility] [address] [address] [address] Maggy Irving EGFR-AF SOLOMON ISLANDER >60 Normal >=60 [facility] Comment on above: Performed By: #### L IPID, T4, TSH, FT3, CMP #### [facility] [address] [address] [address] Maggy Irving EGFR-NON AF SOLOM[place] ISLANDER >60 Normal >=60 [facility] Comment on above: Performed By: #### L IPID, T4, TSH, FT3, CMP #### [facility] [address] [place] [address] Dr. Maggy Irving Globulin (S) [Mass/Vol] 3.4 g/dL Normal [facility] Comment on above: Performed By: #### L IPID, T4, TSH, FT3, CMP #### [facility] [address] [address] [address] Maggy Irving Glucose [Mass/Vol] 116 mg/dL Critically high 74-106 T [facility] Comment on above: Performed By: #### L IPID, T4, TSH, FT3, CMP #### [facility] [address] [address] [address] Maggy Irving Potassium [Moles/Vol] 4.0 mmol/L Normal 3.5-5.1 [facility] Comment on above: Performed By: #### L IPID, T4, TSH, FT3, CMP #### [facility] [address] [place] [address] Dr. Maggy Irving Protein [Mass/Vol] 7.2 g/dL Normal 6.4-8.2 [facility] Comment on above: Performed By: #### L IPID, T4, TSH, FT3, CMP #### [facility] [address] [place] [address] Dr. Maggy Irving Sodium [Moles/Vol] 141 mmol/L Normal 136-145 [facility] Comment on above: Performed By: #### L IPID, T4, TSH, FT3, CMP #### [facility] [address] [place] [address] Dr. Maggy Irving Urea nitrogen [Mass/Vol] 17.0 mg/dL Normal 7.0-18.0 [facility] Comment on above: Performed By: #### L IPID, T4, TSH, FT3, CMP #### [facility] [address] [address] [address] Maggy Irving Urea nitrogen/Creatinine [Mass ratio] 20.5 mg/mg Normal [facility] Comment on above: Performed By: #### L IPID, T4, TSH, FT3, CMP #### [facility] [address] [address] [address] Maggy Irving TSHon 12-07-2022 TSH 5.531 uIU/mL Critically high 0.358-3.740 [facility] Comment on above: Performed By: #### L IPID, T4, TSH, FT3, CMP #### [facility] [address] [place] [address] Dr. Maggy Irving TESTOSTERONE, TOTALon 2021 Testosterone [Mass/Vol] 390 ng/dL Normal 264-916 [facility] Comment on above: Result Comment: Adul t male reference interval is based on a population of healthy nonobese males (BMI <30) between 19 and 39 years old. Reynaldo et.al. JCEM 2017,102;9966-1493. PMID: [id number]. Performed By: #### L IPID, T4, TSH, FT3, CMP #### [facility] [address] [place] [address] Dr. Maggy Irving CBC AUTO DIFFon 04-09-2022 BASO # 0.0 103/ul Normal 0.0-0.1 [facility] Comment on above: Performed By: #### L IPID, T4, TSH, FT3, CMP #### [facility] [address] [place] [address] Dr. Maggy Irving Basophils/100 WBC (Bld) 0.2 % Normal 0.2-2.0 [facility] Comment on above: Performed By: #### L IPID, T4, TSH, FT3, CMP #### [facility] [address] [place] [address] Dr. Maggy Irving EO # 0.2 103/ul Normal 0.0-0.7 [facility] Comment on above: Performed By: #### L IPID, T4, TSH, FT3, CMP #### [facility] [address] [place] [address] Dr. Maggy Irving Eosinophils/100 WBC (Bld) 3.1 % Normal 0.9-7.0 [facility] Comment on above: Performed By: #### L IPID, T4, TSH, FT3, CMP #### [facility] [address] [place] [address] Dr. Maggy Irving Erythrocyte distribution width (RBC) [Ratio] 12.3 % Normal 11.0-15.0 [facility] Comment on above: Performed By: #### L IPID, T4, TSH, FT3, CMP #### [facility] [address] [place] [address] Dr. Maggy Irving Hematocrit (Bld) [Volume fraction] 41.6 % Critically low 42.0-54.0 [facility] Comment on above: Performed By: #### L IPID, T4, TSH, FT3, CMP #### [facility] [address] [place] [address] Dr. Maggy Irving Hemoglobin (Bld) [Mass/Vol] 14.6 g/dL Normal 14.0-18.0 [facility] Comment on above: Performed By: #### L IPID, T4, TSH, FT3, CMP #### [facility] [address] [place] [address] Dr. Maggy Irving IG # 0.02 10e3/ul Normal 0.00-0.03 [facility] Comment on above: Performed By: #### L IPID, T4, TSH, FT3, CMP #### [facility] [address] [place] [address] Dr. Maggy Irving IG % 0.4 % Normal 0.0-0.5 [facility] Comment on above: Performed By: #### L IPID, T4, TSH, FT3, CMP #### [facility] [address] [place] [address] Dr. Maggy Irving LYMPH # 0.9 103/ul Critically low 1.2-3.8 [place] Comment on above: Performed By: #### L IPID, T4, TSH, FT3, CMP #### [facility] [address] [place] [address] Dr. Maggy Irving Lymphocytes/100 WBC (Bld) 17.9 % Critically low 20.5-60.0 [facility] Comment on above: Performed By: #### L IPID, T4, TSH, FT3, CMP #### [facility] [address] [place] [address] Dr. Maggy Irving MANUAL DIFF REQ NO Normal [facility] Comment on above: Performed By: #### L IPID, T4, TSH, FT3, CMP #### [facility] [address] [place] [address] Dr. Maggy Irving MCH (RBC) [Entitic mass] 31.1 pg Normal 25.9-34.0 [facility] Comment on above: Performed By: #### L IPID, T4, TSH, FT3, CMP #### [facility] [address] [place] [address] Dr. Maggy Irving MCHC (RBC) [Mass/Vol] 35.1 g/dL Normal 29.9-35.2 [facility] Comment on above: Performed By: #### L IPID, T4, TSH, FT3, CMP #### [facility] [address] [place] [address] Dr. Maggy Irving MCV (RBC) [Entitic vol] 88.5 fL Normal 80.0-94.0 [facility] Comment on above: Performed By: #### L IPID, T4, TSH, FT3, CMP #### [facility] [address] [place] [address] Dr. Maggy Irving MONO # 0.4 103/ul Normal 0.3-0.8 [facility] Comment on above: Performed By: #### L IPID, T4, TSH, FT3, CMP #### [facility] [address] [address] [address] Maggy Irving Monocytes/100 WBC (Bld) 8.7 % Normal 1.7-12.0 [facility] Comment on above: Performed By: #### L IPID, T4, TSH, FT3, CMP #### [facility] [address] [place] [address] Dr. Maggy Irving NEUT # 3.4 103/ul Normal 1.4-6.5 [facility] Comment on above: Performed By: #### L IPID, T4, TSH, FT3, CMP #### [facility] [address] [place] [address] Dr. Maggy Irving Neutrophils/100 WBC (Bld) 69.7 % Normal 43.0-75.0 [facility] Comment on above: Performed By: #### L IPID, T4, TSH, FT3, CMP #### [facility] [address] [place] [address] Dr. Maggy Irving Platelet mean volume (Bld) [Entitic vol] 9.9 fL Normal 9.5-13.5 [facility] Comment on above: Performed By: #### L IPID, T4, TSH, FT3, CMP #### [facility] [address] [place] [address] Dr. Maggy Irving PLT 121 103/ul Critically low 150-450 [facility] Comment on above: Performed By: #### L IPID, T4, TSH, FT3, CMP #### [facility] [address] [place] [address] Dr. Maggy Irving RBC 4.70 106/ul Normal 4.70-6.10 [facility] Comment on above: Performed By: #### L IPID, T4, TSH, FT3, CMP #### [facility] [address] [place] [address] Dr. Maggy Irving WBC 4.8 103/ul Normal 4.0-11.0 [facility] Comment on above: Performed By: #### L IPID, T4, TSH, FT3, CMP #### [facility] [address] [place] [address] Dr. Maggy Irving FREE T3on 04-09-2022 FREE T3 3.15 pg/mlL Normal 2.18-3.98 [facility] Comment on above: Performed By: #### L IPID, T4, TSH, FT3, CMP #### [facility] [address] [place] [address] Dr. Maggy Irving GLYCOHEMOGLOBIN A1Con 2021 ADA RECOMMENDATION SEE BELOW Normal [facility] Comment on above: Result Comment: ADA RECOMMENDED LIMIT 4.0 - 6.0 ADA THERAPEUTIC TARGET < 7.0 ACTION SUGGESTED > 7.0 Performed By: #### L IPID, T4, TSH, FT3, CMP #### [facility] [address] [place] [address] Dr. Maggy Irving Glucose [Mass/Vol] 123 mg/dL Normal [facility] Comment on above: Performed By: #### L IPID, T4, TSH, FT3, CMP #### [facility] [address] [place] [address] Dr. Maggy Irving HbA1c (Bld) [Mass fraction] 5.9 % Normal 4.5-6.2 [facility] Comment on above: Performed By: #### L IPID, T4, TSH, FT3, CMP #### [facility] [address] [place] [address] Dr. Maggy Irving LIPID PROFILEon 04-09-2022 CHOL-HDL RATIO NORM SEE BELOW Normal [facility] Comment on above: Result Comment: 3.3 - 4.4 LOW RISK 4.4 - 7.1 AVERAGE RISK 7.1 - 11.0 MODERATE RISK >11.0 HIGH RISK Performed By: #### L IPID, T4, TSH, FT3, CMP #### [facility] [address] [place] [address] Dr. Maggy Irving Cholesterol [Mass/Vol] 174 mg/dL Normal <=200 [facility] Comment on above: Performed By: #### L IPID, T4, TSH, FT3, CMP #### [facility] [address] [address] [address] Maggy Irving Cholesterol in HDL [Mass/Vol] 36 mg/dL Critically low 40-60 [facility] Comment on above: Performed By: #### L IPID, T4, TSH, FT3, CMP #### [facility] [address] [address] [address] Maggy Irving Cholesterol in LDL [Mass/Vol] 114.4 mg/dL Normal [facility] Comment on above: Performed By: #### L IPID, T4, TSH, FT3, CMP #### [facility] [address] [address] [address] Maggy Irving Cholesterol.total/Ch olesterol in HDL [Mass ratio] 4.8 {ratio} Normal [facility] Comment on above: Performed By: #### L IPID, T4, TSH, FT3, CMP #### [facility] [address] [address] [address] Maggy Irvign HDL NORMAL > or = 60 mg/dl - LO W CARDIOVASCULAR RISK <40 mg/dl - HIGH CARDIOVASCULAR RISK Normal [facility] Comment on above: Performed By: #### L IPID, T4, TSH, FT3, CMP #### [facility] [address] [address] [address] Maggy Irving LDL CALC NORMAL SEE BELOW Normal [facility] Comment on above: Result Comment: <100 mg/dl OPTIMAL 100 - 129 mg/dl NEAR OR ABOVE OPTIMAL 130 - 159 mg/dl BORDERLINE HIGH 160 - 189 mg/dl HIGH >190 mg/dl VERY HIGH Performed By: #### L IPID, T4, TSH, FT3, CMP #### [facility] [address] [address] [address] Maggy Irving Triglyceride [Mass/Vol] 118 mg/dL Normal <=150 [facility] Comment on above: Performed By: #### L IPID, T4, TSH, FT3, CMP #### [facility] [address] [address] [address] Maggy Irving VLDL CALC 23.6 mg/dL Normal [facility] Comment on above: Performed By: #### L IPID, T4, TSH, FT3, CMP #### [facility] [address] [address] [address] Maggy Irving OCC BLD IMMUNO SCREENon 03-20 OCCULT BLOOD Negative Normal NEGATIVE [facility] Comment on above: Performed By: #### O BSCRN #### [facility] [address] [place] [address] Dr. Maggy Irving PROF 14(COMP METB)on 022 Albumin [Mass/Vol] 3.6 g/dL Normal 3.4-5.0 [facility] Comment on above: Performed By: #### L IPID, T4, TSH, FT3, CMP #### [facility] [address] [place] [address] Dr. Maggy Irving Albumin/Globulin [Mass ratio] 1.1 {ratio} Normal [facility] Comment on above: Performed By: #### L IPID, T4, TSH, FT3, CMP #### [facility] [address] [place] [address] Dr. Maggy Irving ALP [Catalytic activity/Vol] 47 U/L Normal 46-116 [facility] Comment on above: Performed By: #### L IPID, T4, TSH, FT3, CMP #### [facility] [address] [place] [address] Dr. Maggy Irving ALT [Catalytic activity/Vol] 31 U/L Normal 16-63 [facility] Comment on above: Performed By: #### L IPID, T4, TSH, FT3, CMP #### [facility] [address] [place] [address] Dr. Maggy Irving Anion gap [Moles/Vol] 10.2 mmol/L Normal [facility] Comment on above: Performed By: #### L IPID, T4, TSH, FT3, CMP #### [facility] [address] [place] [address] Dr. Maggy Irving AST [Catalytic activity/Vol] 17 U/L Normal 15-37 [facility] Comment on above: Performed By: #### L IPID, T4, TSH, FT3, CMP #### [facility] [address] [place] [address] Dr. Maggy Irving Bilirubin [Mass/Vol] 0.6 mg/dL Normal 0.2-1.0 [facility] Comment on above: Performed By: #### L IPID, T4, TSH, FT3, CMP #### [facility] [address] [place] [address] Dr. Maggy Irving Calcium [Mass/Vol] 8.1 mg/dL Critically low 8.5-10.1 [facility] Comment on above: Performed By: #### L IPID, T4, TSH, FT3, CMP #### [facility] [address] [place] [address] Dr. Maggy Irving Chloride [Moles/Vol] 105 mmol/L Normal 98-107 [facility] Comment on above: Performed By: #### L IPID, T4, TSH, FT3, CMP #### [facility] [address] [place] [address] Dr. Maggy Irving CO2 [Moles/Vol] 29.6 mmol/L Normal 21.0-32.0 [facility] Comment on above: Performed By: #### L IPID, T4, TSH, FT3, CMP #### [facility] [address] [place] [address] Dr. Maggy Irving Creatinine [Mass/Vol] 0.89 mg/dL Normal 0.70-1.30 [facility] Comment on above: Performed By: #### L IPID, T4, TSH, FT3, CMP #### [facility] [address] [place] [address] Dr. Maggy Irving EGFR-AF SOLOM[place] ISLANDER >60 Normal >=60 [facility] Comment on above: Performed By: #### L IPID, T4, TSH, FT3, CMP #### [facility] [address] [place] [address] Dr. Maggy Irving EGFR-NON AF [place] ISLANDER >60 Normal >=60 [facility] Comment on above: Performed By: #### L IPID, T4, TSH, FT3, CMP #### [facility] [address] [place] [address] Dr. Maggy Irving Globulin (S) [Mass/Vol] 3.2 g/dL Normal [facility] Comment on above: Performed By: #### L IPID, T4, TSH, FT3, CMP #### [facility] [address] [place] [address] Dr. Maggy Irving Glucose [Mass/Vol] 110 mg/dL Critically high 74-106 [facility] Comment on above: Performed By: #### L IPID, T4, TSH, FT3, CMP #### [facility] [address] [place] [address] Dr. Maggy Irving Potassium [Moles/Vol] 3.8 mmol/L Normal 3.5-5.1 [facility] Comment on above: Performed By: #### L IPID, T4, TSH, FT3, CMP #### [facility] [address] [place] [address] Dr. Maggy Irving Protein [Mass/Vol] 6.8 g/dL Normal 6.4-8.2 [facility] Comment on above: Performed By: #### L IPID, T4, TSH, FT3, CMP #### [facility] [address] [place] [address] Dr. Maggy Irving Sodium [Moles/Vol] 141 mmol/L Normal 136-145 [facility] Comment on above: Performed By: #### L IPID, T4, TSH, FT3, CMP #### [facility] [address] [place] [address] Dr. Maggy Irving Urea nitrogen [Mass/Vol] 17.0 mg/dL Normal 7.0-18.0 [facility] Comment on above: Performed By: #### L IPID, T4, TSH, FT3, CMP #### [facility] [address] [place] [address] Dr. Maggy Irving Urea nitrogen/Creatinine [Mass ratio] 19.1 mg/mg Normal [facility] Comment on above: Performed By: #### L IPID, T4, TSH, FT3, CMP #### [facility] [address] [place], [place] [address] Dr. Maggy Irving T4on 04-09-2022 T4 [Mass/Vol] 7.90 ug/dL Normal 4.50-12.10 [facility] Comment on above: Performed By: #### L IPID, T4, TSH, FT3, CMP #### [facility] [address] [id number] Maggy Irving TSHon 04-09-2022 TSH 4.949 uIU/mL Critically high 0.358-3.740 [facility] Comment on above: Performed By: #### L IPID, T4, TSH, FT3, CMP #### [facility] [address] [address] [address] Maggy Irving Vital Signs Date Time Vital Sign Value Performing Clinician Faci lity 04-06-2024 09:43-0400 Body height 177.8 cm [facility] 04-06-2024 09:43-0400 Body mass index (BMI) [Ratio] 34.4 kg/m2 [facility] 04-06-2024 09:43-0400 Body temperature 98.3 [degF] [facility] 04-06-2024 09:43-0400 Body weight 109.08 kg [facility] 04-06-2024 09:43-0400 Diastolic blood pressure 78 mm[Hg] [facility] 04-06-2024 09:43-0400 Heart rate 87 /min [facility] 04-06-2024 09:43-0400 Respiratory rate 18 /min [facility] 04-06-2024 09:43-0400 SaO2% (BldA) [Mass fraction] 96 % [facility] 04-06-2024 09:43-0400 Systolic blood pressure 146 mm[Hg] [facility] Encounters Encounter Date Encounter Type Care Provider Facility Start: 06-04-2025 ambulatory Chirag STINSON Facility :[facility] Start: 05-07-2025 ambulatory Chirag STINSON Facility:[facility] Start: 04-27-2024 End: 04-27-2024 ambulatory Marcella Gross [facility] Work Phone: Start: 04-27-2024 End: 04-27-2024 Departed Referred MD Marcella Gross Work Phone: [facility] Start: 04-06-2024 End: 04-06-2024 ambulatory [facility] Work Phone: Start: 04-06-2024 End: 04-06-2024 Patient encounter procedure Count Includes [facility] Work Phone: Start: 02-10-2023 End: 02-11-2023 ambulatory VIELISSE ORNELAS Facility:[facility] Start: 02-07-2023 End: 02-07-2023 ambulatory IVELISSE ORNELAS Facility:[facility] Start: 02-06-2023 Encounter for preprocedural laboratory examination IVELISSE ORNELAS [facility] Start: 01-31-2023 End: 02-01-[address] [...] L IPID, T4, TSH, FT3, CMP #### [facility] [address] [place] [address] Dr. Maggy Irving Payers Date Payer Category Payer Self-pay 1957 Medicare [id number] 1957 Unknown [id number] 1950 Unknown [id number] 2.16.84 [id number] 1952 Unknown [id number] 2.16.84 [id number] 1952 Unknown [id number] 2.16.84 [id number] 1952 Unknown [id number] 2.16.84 [id number] 1952 Unknown [id number] 2.16.84 0.1.567992.3.579.2.593 1952 Unknown [id number] 2.16.84 0.1.767206.3.579.2.593 1952 Unknown [id number] 2.16.84 0.1.962928.3.579.2.593 1952 Unknown [id number] 2.16.84 0.1.924516.3.579.2.593 1952 Unknown [id number] 2.16.84 0.1.739468.3.579.2.593 1952 Unknown [id number] 2.16.84 0.1.186923.3.579.2.593 1952 Unknown [id number] 2.16.84 0.1.989108.3.579.2.593 1952 Unknown [id number] 2.16.8 [id number] Medicare Medicare [id number] Unknown [id number] 2.16.8 [id number] Social History Date Type Detail [facility] Work Phone: Start: 1950 Sex Assigned At Male [facility] Clinical Note 02-07-2023 Note [...] authenticated by: OLVIN KHANNA Date: 2023-02-07 09:41 [facility] Evaluation note Note Date & Type Note Facility Evaluation note Diagnosis Onset Date Bacterial conjunctivitis of right eye acute [facility] Work Phone: Summary Purpose Family History [...] DATE CREATED AUTHOR 02/25/2023 [facility] DATE CREATED AUTHOR AUTHOR'S ORGANIZ ATION 05/02/2024 [facility] DATE CREATED AUTHOR AUTHOR'S ORGANIZ ATION 05/08/2025 [facility] Care Teams (unrecognized sec tion [...] BE BASED ON THE PRIMARY CLINICAL RECORDS. [facility]. provides no warranty or guarantee of the accuracy or completeness of information in this document.
== END 2025-05-17 10:01 | disposition home or self-care (01) ==
LOC: WC 05-21 15:43
PROVIDERS: PCP Family Medicine; Visit Provider Physician Assistant
DX: L97.412 Non-pressure chronic ulcer of right heel and midfoot with fat layer exposed (principal)

== ENCOUNTER 2025-05-21 09:21 | Outpatient (OUT) | payer MEDICARE, OTHER, SELFPAY ==
--- NOTE | 2025-05-21 09:33 | XR_ITS ---
The [address] [address] Patient Name: SILVINO MARVIN MRN: [id number] date: 1950 Sex: M Assigned Patient Location: [facility] Current Patient Location: Accession/Order Number: [id number] Exam Date: 05/21/2025 09:44 Report Date: 05/21/2025 10:10 At the request of: NOELLE ROLLE Procedure: XR foot RT min 3V RIGHT FOOT - 3 views CLINICAL DATA: Chronic right foot pain and ulcer COMPARISON: 05/02/2024 Weightbearing AP, lateral and oblique views were obtained. There is osteopenia. 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 There is no acute fracture, dislocation or bony destruction. Similar degenerative changes are again noted including calcaneal spurs. There are no significant soft tissue abnormalities. XR/XR foot RT min 3V IMPRESSION: NO ACUTE BONY FINDINGS. Impression dictated by: Jamilah Mistry M.D. 05/21/2025 10:10 AM Dictation Location: [employer] Electronically authenticated by: [id number] Y Date: 05/21/2025 10:10
--- OUTSIDE RECORDS SUMMARY | 2025-05-21 09:45 | XMS_ITS | CCD ---
Author Organization [facility] Care Team Providers Care Signaling Design Engineer Name Role Phone CHEIKH ., DR [...] DR NARANJO Attending Unavailable HOY ., DR ANRANJO Admitting Unavailable HOY ., DR NARANJO Primary [...] Admitting Unavailable MD Marcella Gross Attending Provider [phone] Marcella Gross Attending Unavailable Marcella Gross Admitting [...] 04-06-2024 Episodic Other aftercare (1 source) Other half-way (current) drug therapy; Translations: [OTH ORAL AND MAXILLOFACIAL SURGERY CURRENT DRUG THERAPY] Onset: 02-16-2023 Episodic Other [...] Test Name Value Interpretation Reference Range Facility [facility] 04-27-2024 L Specimen: [id number] Received: 04/30/24 Status: CASS Moore Num: [id number] Spec Type: Impression Subm Dr: Marcella Gross MD Tissues: PATHPER Procedures: PATHREVIEW Age/ Patient Sex Location Account Attending Physician Silvino Ojeda 74/M LABELL [id number] Marcella Gross MD SPEC NUM: [id number] RECD: 04/30/24 STATUS: CASS MOORE NUM: [id number] KAREN: 04/27/[address]: Marcella Gross MD ENTERED: 04/30/24 [facility] DR: SPEC TYPE: Impression DEPT: ALEXSANDRA Cervantes ENTERED BY: [id number] RECV BY: [id number] ORDERED: PATHREVIEW ORDERED: PATHREVIEW Pathologist Review Abnormal [...] shifted granulocytes, or granulocytic dysplasia observed CPT: 83071 -------- -------- Specimen: [id number] Received: 04/30/24 Status: CASS Moore Num: [id number] Spec Type: Impression Subm Dr: Marcella Gross MD Tissues: PATHPER Procedures: PATHREVIEW -------- Patient: Silvino Ojeda [id number] (Continued) -------- Signed (signature on file) Celia Irving MD 04/30/241945 Normal [facility] CULTURE OTHERon 02-11-2023 CULTURE OTHER [...] F Trimethoprim/Sulfamet hoxazole <=10 S F Normal [facility] Comment on above: Performed By: #### L IPID, T4, TSH, FT3, CMP #### [facility] [address] [address] [address] Maggy Irving FUNGAL CULTUREon 02-09-2023 Fungus Stain Final report Normal [facility] Comment on above: Performed By: #### L IPID, T4, TSH, FT3, CMP #### [facility] [address] [address] [address] Maggy Irving Result 1 Comment Normal [facility] Comment on above: Result Comment: SUDHIR/ Calcofluor preparation: no fungus observed. Performed By: #### L IPID, T4, TSH, FT3, CMP #### [facility] [address] [place] [address] Dr. Maggy Irving ACID FAST SMEAR AND CXon Acid Fast Smear Negative Normal [facility] Comment on above: Performed By: #### A FB #### [facility] [address] [place] [address] Dr. Maggy Irving [employer] Specimen Processing Tissue Grinding [facility] Comment on above: Performed By: #### A FB #### [facility] [address] [place] [address] Dr. Maggy Irving CULTURE ANAEROBICon 02-08-20 CULTURE ANAEROBIC Isolate 1 Finegoldia magna Light growth of Normal [facility] Comment on above: Result Comment: EVID ENCE BASED PRACTICE BY [facility] HAS DEMONSTRATED THAT FINEGOLDIA SPECIES ARE ROUTINELY SUSCEPTIBLE TO PIPERACILLIN-TAZOBACTAM, CEFOXITIN, ERTAPENEM, IMIPENEM METRONIDAZOLE AND VARIABLY RESISTANT TO CLINDAMYCIN. Performed By: #### L IPID, T4, TSH, FT3, CMP #### [facility] [address] [place] [address] Dr. Maggy Irving GRAM STAINon 02-07-2023 COMMENTS NO ORGANISMS OBSERVED [facility] Comment on above: Performed By: #### G STAIN #### [facility] [address] [place] [address] Dr. Maggy Irving DIPHTHEROIDS Normal [facility] Comment on above: Performed By: #### G STAIN #### [facility] [address] [address] [address] Maggy Irving EPITHELIALS Normal [facility] Comment on above: Performed By: #### G STAIN #### [facility] [address] [address] [address] Maggy Irving FUNGAL ELEMENTS Normal [facility] Comment on above: Performed By: #### G STAIN #### [facility] [address] [address] [address] Maggy Irving GRAM NEG BACILLI Normal [facility] Comment on above: Performed By: #### G STAIN #### [facility] [address] [address] [address] Maggy MENDOZA NEG DIPPLOCOCCI Normal [facility] Comment on above: Performed By: #### G STAIN #### [facility] [address] [address] [address] Maggy Irving GRAM POS BACILLI Normal [facility] Comment on above: Performed By: #### G STAIN #### [facility] [address] [address] [address] Maggy Irving GRAM POSITIVE COCCI Normal [facility] Comment on above: Performed By: #### G STAIN #### [facility] [address] [address] [address] Maggy Irving GRAM STAIN SOURCE 5th Metatarsal Bone Normal [facility] Comment on above: Performed By: #### G STAIN #### [facility] [address] [address] [address] Maggy Irving GS_DIPTH [facility] Comment on above: Performed By: #### G STAIN #### [facility] [address] [address] [address] Maggy Irving WBC RARE Normal [facility] Comment on above: Performed By: #### G STAIN #### [facility] [address] [address] [address] Maggy Irving POINT OF CARE GLUCOSEon 05-2 Glucose [Mass/Vol] 114 mg/dL Critically high 74-106 [facility] Comment on above: Performed By: #### P OCGLUC #### [facility] [address] [place] [address] Dr. Maggy Irving Glucose [Mass/Vol] 122 mg/dL Critically high 74-106 [facility] Comment on above: Performed By: #### P OCGLUC #### [facility] [address] [place] [address] Dr. Maggy Irving PROF CHEM 8 (BAS METB)on Anion gap [Moles/Vol] 12.0 mmol/L Normal [facility] Comment on above: Performed By: #### L IPID, T4, TSH, FT3, CMP #### [facility] [address] [place] [address] Dr. Maggy Irving Calcium [Mass/Vol] 8.7 mg/dL Normal 8.5-10.1 [facility] Comment on above: Performed By: #### L IPID, T4, TSH, FT3, CMP #### [facility] [address] [place] [address] Dr. Maggy Irving Chloride [Moles/Vol] 104 mmol/L Normal 98-107 [facility] Comment on above: Performed By: #### L IPID, T4, TSH, FT3, CMP #### [facility] [address] [place] [address] Dr. Maggy Irving CO2 [Moles/Vol] 28.1 mmol/L Normal 21.0-32.0 [facility] Comment on above: Performed By: #### L IPID, T4, TSH, FT3, CMP #### [facility] [address] [place] [address] Dr. Maggy Irving Creatinine [Mass/Vol] 0.80 mg/dL Normal 0.70-1.30 [facility] Comment on above: Performed By: #### L IPID, T4, TSH, FT3, CMP #### [facility] [address] [place] [address] Dr. Maggy Irving EGFR-AF GHANAIAN >60 Normal >=60 [facility] Comment on above: Performed By: #### L IPID, T4, TSH, FT3, CMP #### [facility] [address] [address] [address] Maggy Irving EGFR-NON AF GHANAIAN >60 Normal >=60 [facility] Comment on above: Performed By: #### L IPID, T4, TSH, FT3, CMP #### [facility] [address] [place] [address] Dr. Maggy Irving Glucose [Mass/Vol] 129 mg/dL Critically high 74-106 [facility] Comment on above: Performed By: #### L IPID, T4, TSH, FT3, CMP #### [facility] [address] [address] [address] Maggy Irving Potassium [Moles/Vol] 4.1 mmol/L Normal 3.5-5.1 [facility] Comment on above: Performed By: #### L IPID, T4, TSH, FT3, CMP #### [facility] [address] [place] [address] Dr. Maggy Irving Sodium [Moles/Vol] 140 mmol/L Normal 136-145 [facility] Comment on above: Performed By: #### L IPID, T4, TSH, FT3, CMP #### [facility] [address] [address] [address] Maggy Irving Urea nitrogen [Mass/Vol] 20.0 mg/dL Critically high 7.0-18.0 [facility] Comment on above: Performed By: #### L IPID, T4, TSH, FT3, CMP #### [facility] [address] [place] [address] Dr. Maggy Irving Urea nitrogen/Creatinine [Mass ratio] 25.0 mg/mg Normal [facility] Comment on above: Performed By: #### L IPID, T4, TSH, FT3, CMP #### [facility] [address] [place] [address] Dr. Maggy Irving FREE T3on 01-07-2023 FREE T3 3.24 pg/mlL Normal 2.18-3.98 [facility] Comment on above: Performed By: #### L IPID, T4, TSH, FT3, CMP #### [facility] [address] [address] [address] Maggy Irving T4on 01-07-2023 T4 [Mass/Vol] 9.10 ug/dL Normal 4.50-12.10 [facility] Comment on above: Performed By: #### L IPID, T4, TSH, FT3, CMP #### [facility] [address] [address] [address] Maggy Irving TSHon 01-07-2023 TSH 5.957 uIU/mL Critically high 0.358-3.740 [facility] Comment on above: Performed By: #### L IPID, T4, TSH, FT3, CMP #### [facility] [address] [address] [address] Maggy Irving NM STRESS/REST MULTIon 01-03 NM STRESS/REST MULTI Patient: SILVINO OJEDA Exam Date: 01/03/2023 : 1950 Gender:M Ordering : DR MARCELLA GROSS . Admission #: [id number] Family : Order #: [id number] CLICK HERE TO VIEW EXAM RADIOLOGY REPORT [...] Khanna M.D. on 01/04/2023 at 07:45 Normal [facility] ECHOCARDIO M/2D COMPLETEon 0 12-21-2022 ECHOCARDIO M/2D COMPLETE Patient: SILVINO OJEDA Exam Date: 12/21/2022 : 1950 Gender:M Ordering : DR MARCELLA GROSS . Admission #: [id number] Family : Order #: [id number] CLICK HERE TO VIEW EXAM ECHOCARDIOGRAM REPORT [...] M.D. on 12/23/2022 at 18:05 Normal [facility] BNPon 12-07-2022 Natriuretic peptide B (Bld) [Mass/Vol] 37.0 pg/mL Normal <=900.0 [facility] Comment on above: Performed By: #### L IPID, T4, TSH, FT3, CMP #### [facility] [address] [place] [address] Dr. Maggy Irving CBC AUTO DIFFon 12-07-2022 BASO # 0.0 103/ul Normal 0.0-0.1 [facility] Comment on above: Performed By: #### L IPID, T4, TSH, FT3, CMP #### [facility] [address] [place] [address] Dr. Maggy Irving Basophils/100 WBC (Bld) 0.2 % Normal 0.2-2.0 [facility] Comment on above: Performed By: #### L IPID, T4, TSH, FT3, CMP #### [facility] [address] [place] [address] Dr. Maggy Irving EO # 0.2 103/ul Normal 0.0-0.7 [facility] Comment on above: Performed By: #### L IPID, T4, TSH, FT3, CMP #### [facility] [address] [place] [address] Dr. Maggy Irving Eosinophils/100 WBC (Bld) 3.7 % Normal 0.9-7.0 [facility] Comment on above: Performed By: #### L IPID, T4, TSH, FT3, CMP #### [facility] [address] [place] [address] Dr. Maggy Irving Erythrocyte distribution width (RBC) [Ratio] 11.9 % Normal 11.0-15.0 [facility] Comment on above: Performed By: #### L IPID, T4, TSH, FT3, CMP #### [facility] [address] [place] [address] Dr. Maggy Irving Hematocrit (Bld) [Volume fraction] 39.7 % Critically low 42.0-54.0 [facility] Comment on above: Performed By: #### L IPID, T4, TSH, FT3, CMP #### [facility] [address] [place] [address] Dr. Maggy Irving Hemoglobin (Bld) [Mass/Vol] 14.0 g/dL Normal 14.0-18.0 [facility] Comment on above: Performed By: #### L IPID, T4, TSH, FT3, CMP #### [facility] [address] [place] [address] Dr. Maggy Irving IG # 0.02 10e3/ul Normal 0.00-0.03 [facility] Comment on above: Performed By: #### L IPID, T4, TSH, FT3, CMP #### [facility] [address] [place] [address] Dr. Maggy Irving IG % 0.5 % Normal 0.0-0.5 [facility] Comment on above: Performed By: #### L IPID, T4, TSH, FT3, CMP #### [facility] [address] [place] [address] Dr. Maggy Irving LYMPH # 0.9 103/ul Critically low 1.2-3.8 [facility] Comment on above: Performed By: #### L IPID, T4, TSH, FT3, CMP #### [facility] [address] [place] [address] Dr. Maggy Irving Lymphocytes/100 WBC (Bld) 21.1 % Normal 20.5-60.0 [facility] Comment on above: Performed By: #### L IPID, T4, TSH, FT3, CMP #### [facility] [address] [place] [address] Dr. Maggy Irving MANUAL DIFF REQ NO Normal [facility] Comment on above: Performed By: #### L IPID, T4, TSH, FT3, CMP #### [facility] [address] [place] [address] Dr. Maggy Irving MCH (RBC) [Entitic mass] 30.5 pg Normal 25.9-34.0 [facility] Comment on above: Performed By: #### L IPID, T4, TSH, FT3, CMP #### [facility] [address] [place] [address] Dr. Maggy Irving MCHC (RBC) [Mass/Vol] 35.3 g/dL Critically high 29.9-35.2 [facility] Comment on above: Performed By: #### L IPID, T4, TSH, FT3, CMP #### [facility] [address] [place] [address] Dr. Maggy Irving MCV (RBC) [Entitic vol] 86.5 fL Normal 80.0-94.0 [facility] Comment on above: Performed By: #### L IPID, T4, TSH, FT3, CMP #### [facility] [address] [place] [address] Dr. Maggy Irving MONO # 0.4 103/ul Normal 0.3-0.8 [facility] Comment on above: Performed By: #### L IPID, T4, TSH, FT3, CMP #### [facility] [address] [place] [address] Dr. Maggy Irving Monocytes/100 WBC (Bld) 8.7 % Normal 1.7-12.0 [facility] Comment on above: Performed By: #### L IPID, T4, TSH, FT3, CMP #### [facility] [address] [place] [address] Dr. Maggy Irving NEUT # 2.9 103/ul Normal 1.4-6.5 [facility] Comment on above: Performed By: #### L IPID, T4, TSH, FT3, CMP #### [facility] [address] [place] [address] Dr. Maggy Irving Neutrophils/100 WBC (Bld) 65.8 % Normal 43.0-75.0 [facility] Comment on above: Performed By: #### L IPID, T4, TSH, FT3, CMP #### [facility] [address] [place] [address] Dr. Maggy Irving Platelet mean volume (Bld) [Entitic vol] 9.9 fL Normal 9.5-13.5 [facility] Comment on above: Performed By: #### L IPID, T4, TSH, FT3, CMP #### [facility] [address] [address] [address] Maggy Irving PLT 128 103/ul Critically low 150-450 [facility] Comment on above: Performed By: #### L IPID, T4, TSH, FT3, CMP #### [facility] [address] [address] [address] Maggy Irving RBC 4.59 106/ul Critically low 4.70-6.10 [facility] Comment on above: Performed By: #### L IPID, T4, TSH, FT3, CMP #### [facility] [address] [place] [address] Dr. Maggy Irving WBC 4.4 103/ul Normal 4.0-11.0 [facility] Comment on above: Performed By: #### L IPID, T4, TSH, FT3, CMP #### [facility] [address] [place] [address] Dr. Maggy Irving FREE THYROXINE INDEX T7on FTI 2.72 Normal 1.30-4.50 [facility] Comment on above: Performed By: #### L IPID, T4, TSH, FT3, CMP #### [facility] [address] [place] [address] Dr. Maggy Irving T3U 34.0 % Normal 33.0-40.0 [facility] Comment on above: Performed By: #### L IPID, T4, TSH, FT3, CMP #### [facility] [address] [place] [address] Dr. Maggy Irving T4 [Mass/Vol] 8.00 ug/dL Normal 4.50-12.10 [facility] Comment on above: Performed By: #### L IPID, T4, TSH, FT3, CMP #### [facility] [address] [place] [address] Dr. Maggy Irving IRONon 12-07-2022 Iron [Mass/Vol] 134.0 ug/dL Normal 65.0-175.0 [facility] Comment on above: Performed By: #### L IPID, T4, TSH, FT3, CMP #### [facility] [address] [address] [address] Maggy Irving LIPID PROFILEon 12-07-2022 CHOL-HDL RATIO NORM SEE BELOW Normal [facility] Comment on above: Result Comment: 3.3 - 4.4 LOW RISK 4.4 - 7.1 AVERAGE RISK 7.1 - 11.0 MODERATE RISK >11.0 HIGH RISK Performed By: #### L IPID, T4, TSH, FT3, CMP #### [facility] [address] [address] [address] Maggy Irving Cholesterol [Mass/Vol] 180 mg/dL Normal <=200 [facility] Comment on above: Performed By: #### L IPID, T4, TSH, FT3, CMP #### [facility] [address] [place] [address] Dr. Maggy Irving Cholesterol in HDL [Mass/Vol] 37 mg/dL Critically low 40-60 [facility] Comment on above: Performed By: #### L IPID, T4, TSH, FT3, CMP #### [facility] [address] [place] [address] Dr. Maggy Irving Cholesterol in LDL [Mass/Vol] 95.2 mg/dL Normal [facility] Comment on above: Performed By: #### L IPID, T4, TSH, FT3, CMP #### [facility] [address] [place] [address] Dr. Maggy Irving Cholesterol.total/Ch olesterol in HDL [Mass ratio] 4.9 {ratio} Normal [facility] Comment on above: Performed By: #### L IPID, T4, TSH, FT3, CMP #### [facility] [address] [place] [address] Dr. Maggy Irving HDL NORMAL > or = 60 mg/dl - LO W CARDIOVASCULAR RISK <40 mg/dl - HIGH CARDIOVASCULAR RISK Normal [facility] Comment on above: Performed By: #### L IPID, T4, TSH, FT3, CMP #### [facility] [address] [address] [address] Maggy Irving LDL CALC NORMAL SEE BELOW Normal [facility] Comment on above: Result Comment: <100 mg/dl OPTIMAL 100 - 129 mg/dl NEAR OR ABOVE OPTIMAL 130 - 159 mg/dl BORDERLINE HIGH 160 - 189 mg/dl HIGH >190 mg/dl VERY HIGH Performed By: #### L IPID, T4, TSH, FT3, CMP #### [facility] [address] [address] [address] Maggy Irving Triglyceride [Mass/Vol] 239 mg/dL Critically high <=150 [facility] Comment on above: Performed By: #### L IPID, T4, TSH, FT3, CMP #### [facility] [address] [place] [address] Dr. Maggy Irving VLDL CALC 47.8 mg/dL Normal [facility] Comment on above: Performed By: #### L IPID, T4, TSH, FT3, CMP #### [facility] [address] [place] [address] Dr. Maggy Irving PROF 14(COMP METB)on 023 Albumin [Mass/Vol] 3.8 g/dL Normal 3.4-5.0 [facility] Comment on above: Performed By: #### L IPID, T4, TSH, FT3, CMP #### [facility] [address] [place] [address] Dr. Maggy Irving Albumin/Globulin [Mass ratio] 1.1 {ratio} Normal [facility] Comment on above: Performed By: #### L IPID, T4, TSH, FT3, CMP #### [facility] [address] [address] [address] Maggy Irving ALP [Catalytic activity/Vol] 53 U/L Normal 46-116 [facility] Comment on above: Performed By: #### L IPID, T4, TSH, FT3, CMP #### [facility] [address] [address] [address] Maggy Irving ALT [Catalytic activity/Vol] 43 U/L Normal 16-63 [facility] Comment on above: Performed By: #### L IPID, T4, TSH, FT3, CMP #### [facility] [address] [address] [address] Maggy Irving Anion gap [Moles/Vol] 12.2 mmol/L Normal [facility] Comment on above: Performed By: #### L IPID, T4, TSH, FT3, CMP #### [facility] [address] [place] [address] Dr. Maggy Irving AST [Catalytic activity/Vol] 22 U/L Normal 15-37 [facility] Comment on above: Performed By: #### L IPID, T4, TSH, FT3, CMP #### [facility] [address] [place] [address] Dr. Maggy Irving Bilirubin [Mass/Vol] 0.6 mg/dL Normal 0.2-1.0 [facility] Comment on above: Performed By: #### L IPID, T4, TSH, FT3, CMP #### [facility] [address] [place] [address] Dr. Maggy Irving Calcium [Mass/Vol] 8.9 mg/dL Normal 8.5-10.1 [facility] Comment on above: Performed By: #### L IPID, T4, TSH, FT3, CMP #### [facility] [address] [place] [address] Dr. Maggy Irving Chloride [Moles/Vol] 104 mmol/L Normal 98-107 [facility] Comment on above: Performed By: #### L IPID, T4, TSH, FT3, CMP #### [facility] [address] [place] [address] Dr. Maggy Irving CO2 [Moles/Vol] 28.8 mmol/L Normal 21.0-32.0 [facility] Comment on above: Performed By: #### L IPID, T4, TSH, FT3, CMP #### [facility] [address] [place] [address] Dr. Maggy Irving Creatinine [Mass/Vol] 0.83 mg/dL Normal 0.70-1.30 [facility] Comment on above: Performed By: #### L IPID, T4, TSH, FT3, CMP #### [facility] [address] [address] [address] Maggy Irving EGFR-AF GHANAIAN >60 Normal >=60 [facility] Comment on above: Performed By: #### L IPID, T4, TSH, FT3, CMP #### [facility] [address] [address] [address] Maggy Irving EGFR-NON AF GHANAIAN >60 Normal >=60 [facility] Comment on above: Performed By: #### L IPID, T4, TSH, FT3, CMP #### [facility] [address] [place] [address] Dr. Maggy Irving Globulin (S) [Mass/Vol] 3.4 g/dL Normal [facility] Comment on above: Performed By: #### L IPID, T4, TSH, FT3, CMP #### [facility] [address] [address] [address] Maggy Irving Glucose [Mass/Vol] 116 mg/dL Critically high 74-106 [facility] Comment on above: Performed By: #### L IPID, T4, TSH, FT3, CMP #### [facility] [address] [address] [address] Maggy Irving Potassium [Moles/Vol] 4.0 mmol/L Normal 3.5-5.1 [facility] Comment on above: Performed By: #### L IPID, T4, TSH, FT3, CMP #### [facility] [address] [place] [address] Dr. Maggy Irving Protein [Mass/Vol] 7.2 g/dL Normal 6.4-8.2 [facility] Comment on above: Performed By: #### L IPID, T4, TSH, FT3, CMP #### [facility] [address] [place] [address] Dr. Maggy Irving Sodium [Moles/Vol] 141 mmol/L Normal 136-145 [facility] Comment on above: Performed By: #### L IPID, T4, TSH, FT3, CMP #### [facility] [address] [place] [address] Dr. Maggy Irving Urea nitrogen [Mass/Vol] 17.0 mg/dL Normal 7.0-18.0 [facility] Comment on above: Performed By: #### L IPID, T4, TSH, FT3, CMP #### [facility] [address] [address] [address] Maggy Irving Urea nitrogen/Creatinine [Mass ratio] 20.5 mg/mg Normal [facility] Comment on above: Performed By: #### L IPID, T4, TSH, FT3, CMP #### [facility] [address] [address] [address] Maggy Irving TSHon 12-07-2022 TSH 5.531 uIU/mL Critically high 0.358-3.740 [facility] Comment on above: Performed By: #### L IPID, T4, TSH, FT3, CMP #### [facility] [address] [place] [address] Dr. Maggy Irving TESTOSTERONE, TOTALon 2021 Testosterone [Mass/Vol] 390 ng/dL Normal 264-916 [facility] Comment on above: Result Comment: Adul t male reference interval is based on a population of healthy nonobese males (BMI <30) between 19 and 39 years old. Reynaldo et.al. JCEM 2017,102;2174-7530. PMID: [id number]. Performed By: #### L IPID, T4, TSH, FT3, CMP #### [facility] [address] [place] [address] Dr. Maggy Irving CBC AUTO DIFFon 04-09-2022 BASO # 0.0 103/ul Normal 0.0-0.1 [facility] Comment on above: Performed By: #### L IPID, T4, TSH, FT3, CMP #### [facility] [address] [place] [address] Dr. Maggy Irving Basophils/100 WBC (Bld) 0.2 % Normal 0.2-2.0 [facility] Comment on above: Performed By: #### L IPID, T4, TSH, FT3, CMP #### [facility] [address] [place] [address] Dr. Maggy Irving EO # 0.2 103/ul Normal 0.0-0.7 [facility] [facility] Comment on above: Performed By: #### L IPID, T4, TSH, FT3, CMP #### [facility] [address] [place] [address] Dr. Maggy Irving Eosinophils/100 WBC (Bld) 3.1 % Normal 0.9-7.0 [facility] Comment on above: Performed By: #### L IPID, T4, TSH, FT3, CMP #### [facility] [address] [place] [address] Dr. Maggy Irving Erythrocyte distribution width (RBC) [Ratio] 12.3 % Normal 11.0-15.0 [facility] Comment on above: Performed By: #### L IPID, T4, TSH, FT3, CMP #### [facility] [address] [place] [address] Dr. Maggy Irving Hematocrit (Bld) [Volume fraction] 41.6 % Critically low 42.0-54.0 [facility] Comment on above: Performed By: #### L IPID, T4, TSH, FT3, CMP #### [facility] [address] [place] [address] Dr. Maggy Irving Hemoglobin (Bld) [Mass/Vol] 14.6 g/dL Normal 14.0-18.0 [facility] Comment on above: Performed By: #### L IPID, T4, TSH, FT3, CMP #### [facility] [address] [place] [address] Dr. Maggy Irving IG # 0.02 10e3/ul Normal 0.00-0.03 [facility] Comment on above: Performed By: #### L IPID, T4, TSH, FT3, CMP #### [facility] [address] [place] [address] Dr. Maggy Irving IG % 0.4 % Normal 0.0-0.5 [facility] Comment on above: Performed By: #### L IPID, T4, TSH, FT3, CMP #### [facility] [address] [place] [address] Dr. Maggy Irving LYMPH # 0.9 103/ul Critically low 1.2-3.8 [facility] [place] [facility] Comment on above: Performed By: #### L IPID, T4, TSH, FT3, CMP #### [facility] [address] [place] [address] Dr. Maggy Irving Lymphocytes/100 WBC (Bld) 17.9 % Critically low 20.5-60.0 [facility] Comment on above: Performed By: #### L IPID, T4, TSH, FT3, CMP #### [facility] [address] [place] [address] Dr. Maggy Irving MANUAL DIFF REQ NO Normal [facility] Comment on above: Performed By: #### L IPID, T4, TSH, FT3, CMP #### [facility] [address] [place] [address] Dr. Maggy Irving MCH (RBC) [Entitic mass] 31.1 pg Normal 25.9-34.0 [facility] Comment on above: Performed By: #### L IPID, T4, TSH, FT3, CMP #### [facility] [address] [place] [address] Dr. Maggy Irving MCHC (RBC) [Mass/Vol] 35.1 g/dL Normal 29.9-35.2 [facility] Comment on above: Performed By: #### L IPID, T4, TSH, FT3, CMP #### [facility] [address] [place] [address] Dr. Maggy Irving MCV (RBC) [Entitic vol] 88.5 fL Normal 80.0-94.0 [facility] Comment on above: Performed By: #### L IPID, T4, TSH, FT3, CMP #### [facility] [address] [place] [address] Dr. Maggy Irving MONO # 0.4 103/ul Normal 0.3-0.8 [facility] Comment on above: Performed By: #### L IPID, T4, TSH, FT3, CMP #### [facility] [address] [address] [address] Maggy Irving Monocytes/100 WBC (Bld) 8.7 % Normal 1.7-12.0 [facility] Comment on above: Performed By: #### L IPID, T4, TSH, FT3, CMP #### [facility] [address] [place] [address] Dr. Maggy Irving NEUT # 3.4 103/ul Normal 1.4-6.5 [facility] Comment on above: Performed By: #### L IPID, T4, TSH, FT3, CMP #### [facility] [address] [place] [address] Dr. Maggy Irving Neutrophils/100 WBC (Bld) 69.7 % Normal 43.0-75.0 [facility] Comment on above: Performed By: #### L IPID, T4, TSH, FT3, CMP #### [facility] [address] [place] [address] Dr. Maggy Irving Platelet mean volume (Bld) [Entitic vol] 9.9 fL Normal 9.5-13.5 [facility] Comment on above: Performed By: #### L IPID, T4, TSH, FT3, CMP #### [facility] [address] [place] [address] Dr. Maggy Irving PLT 121 103/ul Critically low 150-450 [facility] Comment on above: Performed By: #### L IPID, T4, TSH, FT3, CMP #### [facility] [address] [place] [address] Dr. Maggy Irving RBC 4.70 106/ul Normal 4.70-6.10 [facility] Comment on above: Performed By: #### L IPID, T4, TSH, FT3, CMP #### [facility] [address] [place] [address] Dr. Maggy Irving WBC 4.8 103/ul Normal 4.0-11.0 [facility] Comment on above: Performed By: #### L IPID, T4, TSH, FT3, CMP #### [facility] [address] [place] [address] Dr. Maggy Irving FREE T3on 04-09-2022 FREE T3 3.15 pg/mlL Normal 2.18-3.98 [facility] Comment on above: Performed By: #### L IPID, T4, TSH, FT3, CMP #### [facility] [address] [place] [address] Dr. Maggy Irving GLYCOHEMOGLOBIN A1Con 2021 ADA RECOMMENDATION SEE BELOW Normal [facility] Comment on above: Result Comment: ADA RECOMMENDED LIMIT 4.0 - 6.0 ADA THERAPEUTIC TARGET < 7.0 ACTION SUGGESTED > 7.0 Performed By: #### L IPID, T4, TSH, FT3, CMP #### [facility] [address] [place] [address] Dr. Maggy Irving Glucose [Mass/Vol] 123 mg/dL Normal [facility] Comment on above: Performed By: #### L IPID, T4, TSH, FT3, CMP #### [facility] [address] [place] [address] Dr. Maggy Irving HbA1c (Bld) [Mass fraction] 5.9 % Normal 4.5-6.2 [facility] Comment on above: Performed By: #### L IPID, T4, TSH, FT3, CMP #### [facility] [address] [place] [address] Dr. Maggy Irving LIPID PROFILEon 04-09-2022 CHOL-HDL RATIO NORM SEE BELOW Normal [facility] Comment on above: Result Comment: 3.3 - 4.4 LOW RISK 4.4 - 7.1 AVERAGE RISK 7.1 - 11.0 MODERATE RISK >11.0 HIGH RISK Performed By: #### L IPID, T4, TSH, FT3, CMP #### [facility] [address] [place] [address] Dr. Maggy Irving Cholesterol [Mass/Vol] 174 mg/dL Normal <=200 [facility] Comment on above: Performed By: #### L IPID, T4, TSH, FT3, CMP #### [facility] [address] [address] [address] Maggy Irving Cholesterol in HDL [Mass/Vol] 36 mg/dL Critically low 40-60 [facility] Comment on above: Performed By: #### L IPID, T4, TSH, FT3, CMP #### [facility] [address] [address] [address] Maggy Irving Cholesterol in LDL [Mass/Vol] 114.4 mg/dL Normal [facility] Comment on above: Performed By: #### L IPID, T4, TSH, FT3, CMP #### [facility] [address] [address] [address] Maggy Irving Cholesterol.total/Ch olesterol in HDL [Mass ratio] 4.8 {ratio} Normal [facility] Comment on above: Performed By: #### L IPID, T4, TSH, FT3, CMP #### [facility] [address] [address] [address] Maggy Irving HDL NORMAL > or = 60 mg/dl - LO W CARDIOVASCULAR RISK <40 mg/dl - HIGH CARDIOVASCULAR RISK Normal [facility] Comment on above: Performed By: #### L IPID, T4, TSH, FT3, CMP #### [facility] [address] [address] [address] Maggy Irving LDL CALC NORMAL SEE BELOW Normal [facility] Comment on above: Result Comment: <100 mg/dl OPTIMAL 100 - 129 mg/dl NEAR OR ABOVE OPTIMAL 130 - 159 mg/dl BORDERLINE HIGH 160 - 189 mg/dl HIGH >190 mg/dl VERY HIGH Performed By: #### L IPID, T4, TSH, FT3, CMP #### [facility] [address] [address] [address] Maggy Irving Triglyceride [Mass/Vol] 118 mg/dL Normal <=150 [facility] Comment on above: Performed By: #### L IPID, T4, TSH, FT3, CMP #### [facility] [address] [address] [address] Maggy Irving VLDL CALC 23.6 mg/dL Normal [facility] Comment on above: Performed By: #### L IPID, T4, TSH, FT3, CMP #### [facility] [address] [address] [address] Maggy Irving OCC BLD IMMUNO SCREENon 03-20 OCCULT BLOOD Negative Normal NEGATIVE [facility] Comment on above: Performed By: #### O BSCRN #### [facility] [address] [place] [address] Dr. Maggy Irving PROF 14(COMP METB)on 022 Albumin [Mass/Vol] 3.6 g/dL Normal 3.4-5.0 [facility] Comment on above: Performed By: #### L IPID, T4, TSH, FT3, CMP #### [facility] [address] [place] [address] Dr. Maggy Irving Albumin/Globulin [Mass ratio] 1.1 {ratio} Normal [facility] Comment on above: Performed By: #### L IPID, T4, TSH, FT3, CMP #### [facility] [address] [place] [address] Dr. Maggy Irving ALP [Catalytic activity/Vol] 47 U/L Normal 46-116 [facility] Comment on above: Performed By: #### L IPID, T4, TSH, FT3, CMP #### [facility] [address] [place] [address] Dr. Maggy Irving ALT [Catalytic activity/Vol] 31 U/L Normal 16-63 [facility] Comment on above: Performed By: #### L IPID, T4, TSH, FT3, CMP #### [facility] [address] [place] [address] Dr. Maggy Irving Anion gap [Moles/Vol] 10.2 mmol/L Normal [facility] Comment on above: Performed By: #### L IPID, T4, TSH, FT3, CMP #### [facility] [address] [place] [address] Dr. Maggy Irving AST [Catalytic activity/Vol] 17 U/L Normal 15-37 [facility] Comment on above: Performed By: #### L IPID, T4, TSH, FT3, CMP #### [facility] [address] [place] [address] Dr. Maggy Irving Bilirubin [Mass/Vol] 0.6 mg/dL Normal 0.2-1.0 [facility] Comment on above: Performed By: #### L IPID, T4, TSH, FT3, CMP #### [facility] [address] [place] [address] Dr. Maggy Irving Calcium [Mass/Vol] 8.1 mg/dL Critically low 8.5-10.1 [facility] Comment on above: Performed By: #### L IPID, T4, TSH, FT3, CMP #### [facility] [address] [place] [address] Dr. Maggy Irving Chloride [Moles/Vol] 105 mmol/L Normal 98-107 [facility] Comment on above: Performed By: #### L IPID, T4, TSH, FT3, CMP #### [facility] [address] [place] [address] Dr. Maggy Irivng CO2 [Moles/Vol] 29.6 mmol/L Normal 21.0-32.0 [facility] Comment on above: Performed By: #### L IPID, T4, TSH, FT3, CMP #### [facility] [address] [place] [address] Dr. Maggy Irving Creatinine [Mass/Vol] 0.89 mg/dL Normal 0.70-1.30 [facility] Comment on above: Performed By: #### L IPID, T4, TSH, FT3, CMP #### [facility] [address] [place] [address] Dr. Maggy Irving EGFR-AF GHANAIAN >60 Normal >=60 [facility] Comment on above: Performed By: #### L IPID, T4, TSH, FT3, CMP #### [facility] [address] [place] [address] Dr. Maggy Irving EGFR-NON AF GHANAIAN >60 Normal >=60 [facility] Comment on above: Performed By: #### L IPID, T4, TSH, FT3, CMP #### [facility] [address] [place] [address] Dr. Maggy Irving Globulin (S) [Mass/Vol] 3.2 g/dL Normal [facility] Comment on above: Performed By: #### L IPID, T4, TSH, FT3, CMP #### [facility] [address] [place] [address] Dr. Maggy Irving Glucose [Mass/Vol] 110 mg/dL Critically high 74-106 [facility] Comment on above: Performed By: #### L IPID, T4, TSH, FT3, CMP #### [facility] [address] [place] [address] Dr. Maggy Irving Potassium [Moles/Vol] 3.8 mmol/L Normal 3.5-5.1 [facility] Comment on above: Performed By: #### L IPID, T4, TSH, FT3, CMP #### [facility] [address] [place] [address] Dr. Maggy Irvign Protein [Mass/Vol] 6.8 g/dL Normal 6.4-8.2 [facility] Comment on above: Performed By: #### L IPID, T4, TSH, FT3, CMP #### [facility] [address] [place] [address] Dr. Maggy Irving Sodium [Moles/Vol] 141 mmol/L Normal 136-145 [facility] Comment on above: Performed By: #### L IPID, T4, TSH, FT3, CMP #### [facility] [address] [place] [address] Dr. Maggy Irving Urea nitrogen [Mass/Vol] 17.0 mg/dL Normal 7.0-18.0 [facility] Comment on above: Performed By: #### L IPID, T4, TSH, FT3, CMP #### [facility] [address] [place] [address] Dr. Maggy Irving Urea nitrogen/Creatinine [Mass ratio] 19.1 mg/mg Normal [facility] Comment on above: Performed By: #### L IPID, T4, TSH, FT3, CMP #### [facility] [address] [place], [place] [address] Dr. Maggy Irving T4on 04-09-2022 T4 [Mass/Vol] 7.90 ug/dL Normal 4.50-12.10 [facility] Comment on above: Performed By: #### L IPID, T4, TSH, FT3, CMP #### [facility] [id number] Maggy Irving TSHon 04-09-2022 TSH 4.949 uIU/mL Critically high 0.358-3.740 [facility] Comment on above: Performed By: #### L IPID, T4, TSH, FT3, CMP #### [facility] [address] [address] [address] Maggy Irving Vital Signs Date Time Vital Sign Value Performing Clinician Faci lity 04-06-2024 09:43-0400 Body height 177.8 cm [facility] 04-06-2024 09:43-0400 Body mass index (BMI) [Ratio] 34.4 kg/m2 [facility] [place] 04-06-2024 09:43-0400 Body temperature 98.3 [degF] [facility] 04-06-2024 09:43-0400 Body weight 109.08 kg [facility] 04-06-2024 09:43-0400 Diastolic blood pressure 78 mm[Hg] [facility] 04-06-2024 09:43-0400 Heart rate 87 /min [facility] 04-06-2024 09:43-0400 Respiratory rate 18 /min [facility] 04-06-2024 09:43-0400 SaO2% (BldA) [Mass fraction] 96 % [facility] 04-06-2024 09:43-0400 Systolic blood pressure 146 mm[Hg] [facility] Encounters Encounter Date Encounter Type Care Provider Facility Start: 06-04-2025 ambulatory Chirag STINSON Facility :[facility] Start: 05-07-2025 ambulatory Chirag STINSON Facility:[facility] Start: 04-27-2024 End: 04-27-2024 ambulatory Marcella Gross [facility] Work Phone: Start: 04-27-2024 End: 04-27-2024 Departed Referred MD Marcella Gross Work Phone: [facility] Start: 04-06-2024 End: 04-06-2024 ambulatory [facility] Work Phone: Start: 04-06-2024 End: 04-06-2024 Patient encounter procedure [facility] Work Phone: Start: 02-10-2023 End: 02-11-2023 ambulatory IVELISSE ORNELAS Facility:[facility] Start: 02-07-2023 End: 02-07-2023 ambulatory IVELISSE ORNELAS Facility:[facility] Start: 02-06-2023 Encounter for preprocedural laboratory examination IVELISSE ORNELAS [facility] Start: 01-31-2023 End: 02-01-[address] [...] L IPID, T4, TSH, FT3, CMP #### [facility] [address] [place] [address] Dr. Maggy Irving Payers Date Payer Category Payer Self-pay 1957 Medicare [id number] 1957 Unknown [id number] 1950 Unknown [id number] 2.16.84 [id number] 1952 Unknown [id number] 2.16.84 [id number] 1952 Unknown [id number] 2.16.84 [id number] 1952 Unknown [id number] 2.16.84 0.1.377029.3.579.2.593 1952 Unknown [id number] 2.16.84 0.1.323140.3.579.2.593 1952 Unknown [id number] 2.16.84 0.1.293239.3.579.2.593 1952 Unknown [id number] 2.16.84 0.1.702956.3.579.2.593 1952 Unknown [id number] 2.16.84 0.1.793823.3.579.2.593 1952 Unknown [id number] 2.16.84 0.1.428561.3.579.2.593 1952 Unknown [id number] 2.16.84 0.1.270509.3.579.2.593 1952 Unknown [id number] 2.16.84 [id number] 1952 Unknown [id number] 2.16.8 [id number] Medicare Medicare [id number] 063 [id number] Unknown [id number] 2.16.8 [id number] Social History Date Type Detail Facility [facility] Work Phone: Start: 1950 Sex Assigned At Male F [facility] Clinical Note 02-07-2023 Note Date & Type [...] authenticated by: OLVIN KHANNA Date: 2023-02-07 09:41 [facility] Evaluation note Note Date & Type Note Facility Evaluation note Diagnosis Onset Date Bacterial conjunctivitis of right eye acute [facility] Work Phone: Summary Purpose Family History [...] and content) DATE CREATED AUTHOR 02/25/2023 [facility] DATE CREATED AUTHOR AUTHOR'S ORGANIZ ATION 05/02/2024 [facility] DATE CREATED AUTHOR AUTHOR'S ORGANIZ ATION 05/08/2025 [facility] Care Teams (unrecognized sec tion and [...] BE BASED ON THE PRIMARY CLINICAL RECORDS. [employer] [place] [employer] [facility]. provides no warranty or guarantee of the accuracy or completeness of information in this document.
== END 2025-05-21 09:22 | disposition home or self-care (01) ==
LOC: RAD 09:22
PROVIDERS: PCP Family Medicine; Visit Provider Physician Assistant
DX: L97.519 Non-pressure chronic ulcer of other part of right foot with unspecified severity (principal)
CPT/HCPCS: 73630

== ENCOUNTER 2025-05-21 10:00 | Outpatient (OUT) | payer MEDICARE, OTHER, SELFPAY ==
--- OUTSIDE RECORDS SUMMARY | 2025-05-21 10:04 | XMS_ITS | CCD ---
Author Organization 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] Onset: 02-16-2023 Episodic [...] Test Name Value Interpretation Reference Range Facility [facility] 04-27-2024 L Specimen: [id number] Received: 04/30/24 Status: CASS Moore Num: [id number] Spec Type: Impression Subm Dr: Marcella Gross MD Tissues: PATHPER Procedures: PATHREVIEW Age/ Patient Sex Location Account Attending Physician Silvino Ojeda 74/M LABELL [id number] Marcella Gross MD SPEC NUM: [id number] RECD: 04/30/24 STATUS: CASS MOORE NUM: [id number] KAREN: 04/27/[address]: Marcella Gross MD ENTERED: 04/30/[address] [facility] [address]: SPEC TYPE: Impression DEPT: ALEXSANDRA Cervantes ENTERED BY: [id number] RECV BY: [id number] ORDERED: PATHREVIEW ORDERED: PATHREVIEW Pathologist Review Abnormal [...] shifted granulocytes, or granulocytic dysplasia observed CPT: 65698 -------- -------- Specimen: [id number] Received: 04/30/24 Status: CASS Moore Num: [id number] Spec Type: Impression Subm Dr: Marcella Gross MD Tissues: PATHPER Procedures: PATHREVIEW -------- Patient: Silvino Ojeda [id number] (Continued) -------- Signed (signature on file) Celia Irving MD 04/30/241945 Normal [facility] CULTURE OTHERon 02-11-2023 CULTURE OTHER [...] F Trimethoprim/Sulfamet hoxazole <=10 S F Normal Comment on above: Performed By: #### L IPID, T4, TSH, FT3, CMP #### [facility] [address] [address] [address] Maggy Irving FUNGAL CULTUREon 02-09-2023 Fungus Stain Final report Normal [facility] Comment on above: Performed By: #### L IPID, T4, TSH, FT3, CMP #### [facility] [address] [address] [address] Maggy Irving Result 1 Comment Normal [facility] Comment on above: Result Comment: SUDHIR/ Calcofluor preparation: no fungus observed. Performed By: #### L IPID, T4, TSH, FT3, CMP #### [facility] [address] [place] [address] Dr. Maggy Irving ACID FAST SMEAR AND CXon Acid Fast Smear Negative Normal [facility] Comment on above: Performed By: #### A FB #### [facility] [address] [place] [address] Dr. Maggy Irving [employer] Specimen Processing Tissue Grinding [facility] Comment on above: Performed By: #### A FB #### [facility] [address] [place] [address] Dr. Maggy Irving CULTURE ANAEROBICon 02-08-20 CULTURE ANAEROBIC Isolate 1 Finegoldia magna Light growth of Normal Comment on above: Result Comment: EVID ENCE BASED PRACTICE BY [facility] HAS DEMONSTRATED THAT FINEGOLDIA SPECIES ARE ROUTINELY SUSCEPTIBLE TO PIPERACILLIN-TAZOBACTAM, CEFOXITIN, ERTAPENEM, IMIPENEM METRONIDAZOLE AND VARIABLY RESISTANT TO CLINDAMYCIN. Performed By: #### L IPID, T4, TSH, FT3, CMP #### [facility] [address] [place] [address] Dr. Maggy Irving GRAM STAINon 02-07-2023 COMMENTS NO ORGANISMS OBSERVED [facility] Comment on above: Performed By: #### G STAIN #### [facility] [address] [place] [address] Dr. Maggy Irving DIPHTHEROIDS Normal Comment on above: Performed By: #### G STAIN #### [facility] [address] [address] [address] Maggy Irving EPITHELIALS Normal Comment on above: Performed By: #### G STAIN #### [facility] [address] [address] [address] Maggy Irving FUNGAL ELEMENTS Normal [facility] Comment on above: Performed By: #### G STAIN #### [facility] [address] [address] [address] Magyg Irving GRAM NEG BACILLI Normal [facility] Comment on above: Performed By: #### G STAIN #### [facility] [address] [address] [address] Maggy MENDOZA NEG DIPPLOCOCCI Normal Comment on above: Performed By: #### G STAIN #### [facility] [address] [address] [address] Maggy Irving GRAM POS BACILLI Normal [facility] Comment on above: Performed By: #### G STAIN #### [facility] [address] [address] [address] Maggy Irving GRAM POSITIVE COCCI Normal [facility] Comment on above: Performed By: #### G STAIN #### [facility] [address] [address] [address] Maggy Irving GRAM STAIN SOURCE 5th Metatarsal Bone Normal Comment on above: Performed By: #### G STAIN #### [facility] [address] [address] [address] Maggy Irving GS_DIPTH [facility] Comment on above: Performed By: #### G STAIN #### [facility] [address] [address] [address] Maggy Irving WBC RARE Normal [facility] Comment on above: Performed By: #### G STAIN #### [facility] [address] [address] [address] Maggy Irving POINT OF CARE GLUCOSEon 05-2 Glucose [Mass/Vol] 114 mg/dL Critically high 74-106 [facility] Comment on above: Performed By: #### P OCGLUC #### [facility] [address] [place] [address] Dr. Maggy Irving Glucose [Mass/Vol] 122 mg/dL Critically high 74-106 [facility] Comment on above: Performed By: #### P OCGLUC #### [facility] [address] [place] [address] Dr. Maggy Irving PROF CHEM 8 (BAS METB)on Anion gap [Moles/Vol] 12.0 mmol/L Normal Comment on above: Performed By: #### L IPID, T4, TSH, FT3, CMP #### [facility] [address] [place] [address] Dr. Maggy Irving Calcium [Mass/Vol] 8.7 mg/dL Normal 8.5-10.1 [facility] Comment on above: Performed By: #### L IPID, T4, TSH, FT3, CMP #### [facility] [address] [place] [address] Dr. Maggy Irving Chloride [Moles/Vol] 104 mmol/L Normal 98-107 Comment on above: Performed By: #### L IPID, T4, TSH, FT3, CMP #### [facility] [address] [place] [address] Dr. Maggy Irving CO2 [Moles/Vol] 28.1 mmol/L Normal 21.0-32.0 [facility] Comment on above: Performed By: #### L IPID, T4, TSH, FT3, CMP #### [facility] [address] [place] [address] Dr. Maggy Irving Creatinine [Mass/Vol] 0.80 mg/dL Normal 0.70-1.30 Comment on above: Performed By: #### L IPID, T4, TSH, FT3, CMP #### [facility] [address] [place] [address] Dr. Maggy Irving EGFR-AF MACEDONIAN >60 Normal >=60 [facility] Comment on above: Performed By: #### L IPID, T4, TSH, FT3, CMP #### [facility] [address] [address] [address] Maggy Irving EGFR-NON AF MACEDONIAN >60 Normal >=60 Comment on above: Performed By: #### L IPID, T4, TSH, FT3, CMP #### [facility] [address] [place] [address] Dr. Maggy Irving Glucose [Mass/Vol] 129 mg/dL Critically high 74-106 [facility] Comment on above: Performed By: #### L IPID, T4, TSH, FT3, CMP #### [facility] [address] [address] [address] Maggy Irving Potassium [Moles/Vol] 4.1 mmol/L Normal 3.5-5.1 Comment on above: Performed By: #### L IPID, T4, TSH, FT3, CMP #### [facility] [address] [place] [address] Dr. Maggy Irving Sodium [Moles/Vol] 140 mmol/L Normal 136-145 [facility] Comment on above: Performed By: #### L IPID, T4, TSH, FT3, CMP #### [facility] [address] [address] [address] Maggy Irving Urea nitrogen [Mass/Vol] 20.0 mg/dL Critically high 7.0-18.0 Comment on above: Performed By: #### L IPID, T4, TSH, FT3, CMP #### [facility] [address] [place] [address] Dr. Maggy Irving Urea nitrogen/Creatinine [Mass ratio] 25.0 mg/mg Normal Comment on above: Performed By: #### L IPID, T4, TSH, FT3, CMP #### [facility] [address] [place] [address] Dr. Maggy Irving FREE T3on 01-07-2023 FREE T3 3.24 pg/mlL Normal 2.18-3.98 Comment on above: Performed By: #### L IPID, T4, TSH, FT3, CMP #### [facility] [address] [address] [address] Maggy Irving T4on 01-07-2023 T4 [Mass/Vol] 9.10 ug/dL Normal 4.50-12.[address] [facility] Comment on above: Performed By: #### L IPID, T4, TSH, FT3, CMP #### [facility] [address] [address] [address] Maggy Irving TSHon 01-07-2023 TSH 5.957 uIU/mL Critically high 0.358-3.740 [facility] Comment on above: Performed By: #### L IPID, T4, TSH, FT3, CMP #### [facility] [address] [address] [address] Maggy Irving NM STRESS/REST MULTIon 01-03 NM STRESS/REST MULTI Patient: SILVINO OJEDA Exam Date: 01/03/2023 : 1950 Gender:M Ordering : DR MARCELLA GROSS . Admission #: [id number] Family : Order #: [id number] CLICK HERE TO VIEW EXAM RADIOLOGY REPORT [...] Khanna M.D. on 01/04/2023 at 07:45 Normal ECHOCARDIO M/2D COMPLETEon 0 12-21-2022 ECHOCARDIO M/2D COMPLETE Patient: SILVINO OJEDA Exam Date: 12/21/2022 : 1950 Gender:M Ordering : DR MARCELLA GROSS . Admission #: [id number] Family : Order #: [id number] CLICK HERE TO VIEW EXAM ECHOCARDIOGRAM REPORT [...] M.D. on 12/23/2022 at 18:05 Normal [facility] BNPon 12-07-2022 Natriuretic peptide B (Bld) [Mass/Vol] 37.0 pg/mL Normal <=900.0 Comment on above: Performed By: #### L IPID, T4, TSH, FT3, CMP #### [facility] [address] [place] [address] Dr. Maggy Irving CBC AUTO DIFFon 12-07-2022 BASO # 0.0 103/ul Normal 0.0-0.1 [facility] Comment on above: Performed By: #### L IPID, T4, TSH, FT3, CMP #### [facility] [address] [place] [address] Dr. Maggy Irving Basophils/100 WBC (Bld) 0.2 % Normal 0.2-2.0 Comment on above: Performed By: #### L IPID, T4, TSH, FT3, CMP #### [facility] [address] [place] [address] Dr. Maggy Irving EO # 0.2 103/ul Normal 0.0-0.7 [facility] Comment on above: Performed By: #### L IPID, T4, TSH, FT3, CMP #### [facility] [address] [place] [address] Dr. Maggy Irving Eosinophils/100 WBC (Bld) 3.7 % Normal 0.9-7.0 [facility] Comment on above: Performed By: #### L IPID, T4, TSH, FT3, CMP #### [facility] [address] [place] [address] Dr. Maggy Irving Erythrocyte distribution width (RBC) [Ratio] 11.9 % Normal 11.0-15.0 [facility] Comment on above: Performed By: #### L IPID, T4, TSH, FT3, CMP #### [facility] [address] [place] [address] Dr. Maggy Irving Hematocrit (Bld) [Volume fraction] 39.7 % Critically low 42.0-54.0 Comment on above: Performed By: #### L IPID, T4, TSH, FT3, CMP #### [facility] [address] [place] [address] Dr. Maggy Irving Hemoglobin (Bld) [Mass/Vol] 14.0 g/dL Normal 14.0-18.0 Comment on above: Performed By: #### L IPID, T4, TSH, FT3, CMP #### [facility] [address] [place] [address] Dr. Maggy Irving IG # 0.02 10e3/ul Normal 0.00-0.03 [facility] Comment on above: Performed By: #### L IPID, T4, TSH, FT3, CMP #### [facility] [address] [place] [address] Dr. Maggy Irving IG % 0.5 % Normal 0.0-0.5 Comment on above: Performed By: #### L IPID, T4, TSH, FT3, CMP #### [facility] [address] [place] [address] Dr. Maggy Irving LYMPH # 0.9 103/ul Critically low 1.2-3.[address] [facility] Comment on above: Performed By: #### L IPID, T4, TSH, FT3, CMP #### [facility] [address] [place] [address] Dr. Maggy Irving Lymphocytes/100 WBC (Bld) 21.1 % Normal 20.5-60.0 Comment on above: Performed By: #### L IPID, T4, TSH, FT3, CMP #### [facility] [address] [place] [address] Dr. Maggy Irving MANUAL DIFF REQ NO Normal [facility] Comment on above: Performed By: #### L IPID, T4, TSH, FT3, CMP #### [facility] [address] [place] [address] Dr. Maggy Irving MCH (RBC) [Entitic mass] 30.5 pg Normal 25.9-34.0 Comment on above: Performed By: #### L IPID, T4, TSH, FT3, CMP #### [facility] [address] [place] [address] Dr. Maggy Irving MCHC (RBC) [Mass/Vol] 35.3 g/dL Critically high 29.9-35.2 [facility] Comment on above: Performed By: #### L IPID, T4, TSH, FT3, CMP #### [facility] [address] [place] [address] Dr. Maggy Irving MCV (RBC) [Entitic vol] 86.5 fL Normal 80.0-94.0 [facility] Comment on above: Performed By: #### L IPID, T4, TSH, FT3, CMP #### [facility] [address] [place] [address] Dr. Maggy Irving MONO # 0.4 103/ul Normal 0.3-0.8 [facility] Comment on above: Performed By: #### L IPID, T4, TSH, FT3, CMP #### [facility] [address] [place] [address] Dr. Maggy Irving Monocytes/100 WBC (Bld) 8.7 % Normal 1.7-12.0 [facility] Comment on above: Performed By: #### L IPID, T4, TSH, FT3, CMP #### [facility] [address] [place] [address] Dr. Maggy Irving NEUT # 2.9 103/ul Normal 1.4-6.5 [facility] Comment on above: Performed By: #### L IPID, T4, TSH, FT3, CMP #### [facility] [address] [place] [address] Dr. Maggy Irving Neutrophils/100 WBC (Bld) 65.8 % Normal 43.0-75.0 [facility] Comment on above: Performed By: #### L IPID, T4, TSH, FT3, CMP #### [facility] [address] [place] [address] Dr. Maggy Irving Platelet mean volume (Bld) [Entitic vol] 9.9 fL Normal 9.5-13.5 [facility] Comment on above: Performed By: #### L IPID, T4, TSH, FT3, CMP #### [facility] [address] [address] [address] Maggy Irving PLT 128 103/ul Critically low 150-[address] [facility] Comment on above: Performed By: #### L IPID, T4, TSH, FT3, CMP #### [facility] [address] [address] [address] Maggy Irving RBC 4.59 106/ul Critically low 4.70-6.10 [facility] Comment on above: Performed By: #### L IPID, T4, TSH, FT3, CMP #### [facility] [address] [place] [address] Dr. Maggy Irving WBC 4.4 103/ul Normal 4.0-11.0 [facility] Comment on above: Performed By: #### L IPID, T4, TSH, FT3, CMP #### [facility] [address] [place] [address] Dr. Maggy Irving FREE THYROXINE INDEX T7on FTI 2.72 Normal 1.30-4.50 Comment on above: Performed By: #### L IPID, T4, TSH, FT3, CMP #### [facility] [address] [place] [address] Dr. Maggy Irving T3U 34.0 % Normal 33.0-40.0 Comment on above: Performed By: #### L IPID, T4, TSH, FT3, CMP #### [facility] [address] [place] [address] Dr. Maggy Irving T4 [Mass/Vol] 8.00 ug/dL Normal 4.50-12.10 [facility] Comment on above: Performed By: #### L IPID, T4, TSH, FT3, CMP #### [facility] [address] [place] [address] Dr. Maggy Irving IRONon 12-07-2022 Iron [Mass/Vol] 134.0 ug/dL Normal 65.0-175.0 [facility] Comment on above: Performed By: #### L IPID, T4, TSH, FT3, CMP #### [facility] [address] [address] [address] Maggy Irving LIPID PROFILEon 12-07-2022 CHOL-HDL RATIO NORM SEE BELOW Normal [facility] Comment on above: Result Comment: 3.3 - 4.4 LOW RISK 4.4 - 7.1 AVERAGE RISK 7.1 - 11.0 MODERATE RISK >11.0 HIGH RISK Performed By: #### L IPID, T4, TSH, FT3, CMP #### [facility] [address] [address] [address] Maggy Irving Cholesterol [Mass/Vol] 180 mg/dL Normal <=200 Comment on above: Performed By: #### L IPID, T4, TSH, FT3, CMP #### [facility] [address] [place] [address] Dr. Maggy Irving Cholesterol in HDL [Mass/Vol] 37 mg/dL Critically low 40-60 Comment on above: Performed By: #### L IPID, T4, TSH, FT3, CMP #### [facility] [address] [place] [address] Dr. Maggy Irving Cholesterol in LDL [Mass/Vol] 95.2 mg/dL Normal Comment on above: Performed By: #### L IPID, T4, TSH, FT3, CMP #### [facility] [address] [place] [address] Dr. Maggy Irving Cholesterol.total/Ch olesterol in HDL [Mass ratio] 4.9 {ratio} Normal Comment on above: Performed By: #### L IPID, T4, TSH, FT3, CMP #### [facility] [address] [place] [address] Dr. Maggy Irving HDL NORMAL > or = 60 mg/dl - LO W CARDIOVASCULAR RISK <40 mg/dl - HIGH CARDIOVASCULAR RISK Normal Comment on above: Performed By: #### L IPID, T4, TSH, FT3, CMP #### [facility] [address] [address] [address] Maggy Irving LDL CALC NORMAL SEE BELOW Normal [facility] Comment on above: Result Comment: <100 mg/dl OPTIMAL 100 - 129 mg/dl NEAR OR ABOVE OPTIMAL 130 - 159 mg/dl BORDERLINE HIGH 160 - 189 mg/dl HIGH >190 mg/dl VERY HIGH Performed By: #### L IPID, T4, TSH, FT3, CMP #### [facility] [address] [address] [address] Maggy Irving Triglyceride [Mass/Vol] 239 mg/dL Critically high <=150 Comment on above: Performed By: #### L IPID, T4, TSH, FT3, CMP #### [facility] [address] [place] [address] Dr. Maggy Irving VLDL CALC 47.8 mg/dL Normal Comment on above: Performed By: #### L IPID, T4, TSH, FT3, CMP #### [facility] [address] [place] [address] Dr. Maggy Irving PROF 14(COMP METB)on 023 Albumin [Mass/Vol] 3.8 g/dL Normal 3.4-5.0 [facility] Comment on above: Performed By: #### L IPID, T4, TSH, FT3, CMP #### [facility] [address] [place] [address] Dr. Maggy Irving Albumin/Globulin [Mass ratio] 1.1 {ratio} Normal Comment on above: Performed By: #### L IPID, T4, TSH, FT3, CMP #### [facility] [address] [address] [address] Maggy Irving ALP [Catalytic activity/Vol] 53 U/L Normal 46-116 Comment on above: Performed By: #### L IPID, T4, TSH, FT3, CMP #### [facility] [address] [address] [address] Maggy Irving ALT [Catalytic activity/Vol] 43 U/L Normal 16-63 Comment on above: Performed By: #### L IPID, T4, TSH, FT3, CMP #### [facility] [address] [address] [address] Maggy Irving Anion gap [Moles/Vol] 12.2 mmol/L Normal Comment on above: Performed By: #### L IPID, T4, TSH, FT3, CMP #### [facility] [address] [place] [address] Dr. Maggy Irving AST [Catalytic activity/Vol] 22 U/L Normal 15-37 Comment on above: Performed By: #### L IPID, T4, TSH, FT3, CMP #### [facility] [address] [place] [address] Dr. Maggy Irving Bilirubin [Mass/Vol] 0.6 mg/dL Normal 0.2-1.0 Comment on above: Performed By: #### L IPID, T4, TSH, FT3, CMP #### [facility] [address] [place] [address] Dr. Maggy Irving Calcium [Mass/Vol] 8.9 mg/dL Normal 8.5-10.1 [facility] Comment on above: Performed By: #### L IPID, T4, TSH, FT3, CMP #### [facility] [address] [place] [address] Dr. Maggy Irving Chloride [Moles/Vol] 104 mmol/L Normal 98-107 [facility] Comment on above: Performed By: #### L IPID, T4, TSH, FT3, CMP #### [facility] [address] [place] [address] Dr. Maggy Irving CO2 [Moles/Vol] 28.8 mmol/L Normal 21.0-32.0 [facility] Comment on above: Performed By: #### L IPID, T4, TSH, FT3, CMP #### [facility] [address] [place] [address] Dr. Maggy Irving Creatinine [Mass/Vol] 0.83 mg/dL Normal 0.70-1.30 Comment on above: Performed By: #### L IPID, T4, TSH, FT3, CMP #### [facility] [address] [address] [address] Maggy Irving EGFR-AF MACEDONIAN >60 Normal >=60 [facility] Comment on above: Performed By: #### L IPID, T4, TSH, FT3, CMP #### [facility] [address] [address] [address] Maggy Irving EGFR-NON AF MACEDONIAN >60 Normal >=60 Comment on above: Performed By: #### L IPID, T4, TSH, FT3, CMP #### [facility] [address] [place] [address] Dr. Maggy Irving Globulin (S) [Mass/Vol] 3.4 g/dL Normal Comment on above: Performed By: #### L IPID, T4, TSH, FT3, CMP #### [facility] [address] [address] [address] Maggy Irving Glucose [Mass/Vol] 116 mg/dL Critically high 74-106 [facility] Comment on above: Performed By: #### L IPID, T4, TSH, FT3, CMP #### [facility] [address] [address] [address] Maggy Irving Potassium [Moles/Vol] 4.0 mmol/L Normal 3.5-5.1 Comment on above: Performed By: #### L IPID, T4, TSH, FT3, CMP #### [facility] [address] [place] [address] Dr. Maggy Irving Protein [Mass/Vol] 7.2 g/dL Normal 6.4-8.2 [facility] Comment on above: Performed By: #### L IPID, T4, TSH, FT3, CMP #### [facility] [address] [place] [address] Dr. Maggy Irving Sodium [Moles/Vol] 141 mmol/L Normal 136-145 [facility] Comment on above: Performed By: #### L IPID, T4, TSH, FT3, CMP #### [facility] [address] [place] [address] Dr. Maggy Irving Urea nitrogen [Mass/Vol] 17.0 mg/dL Normal 7.0-18.0 Comment on above: Performed By: #### L IPID, T4, TSH, FT3, CMP #### [facility] [address] [address] [address] Maggy Irving Urea nitrogen/Creatinine [Mass ratio] 20.5 mg/mg Normal Comment on above: Performed By: #### L IPID, T4, TSH, FT3, CMP #### [facility] [address] [address] [address] Maggy Irving TSHon 12-07-2022 TSH 5.531 uIU/mL Critically high 0.358-3.740 [facility] Comment on above: Performed By: #### L IPID, T4, TSH, FT3, CMP #### [facility] [address] [place] [address] Dr. Maggy Irving TESTOSTERONE, TOTALon 2021 Testosterone [Mass/Vol] 390 ng/dL Normal 264-916 Comment on above: Result Comment: Adul t male reference interval is based on a population of healthy nonobese males (BMI <30) between 19 and 39 years old. Reynaldo et.al. JCEM 2017,102;[id number]. PMID: [id number]. Performed By: #### L IPID, T4, TSH, FT3, CMP #### [facility] [address] [place] [address] Dr. Maggy Irving CBC AUTO DIFFon 04-09-2022 BASO # 0.0 103/ul Normal 0.0-0.1 Comment on above: Performed By: #### L IPID, T4, TSH, FT3, CMP #### [facility] [address] [place] [address] Dr. Maggy Irving Basophils/100 WBC (Bld) 0.2 % Normal 0.2-2.0 Comment on above: Performed By: #### L IPID, T4, TSH, FT3, CMP #### [facility] [address] [place] [address] Dr. Maggy Irving EO # 0.2 103/ul Normal 0.0-0.7 [facility] Comment on above: Performed By: #### L IPID, T4, TSH, FT3, CMP #### [facility] [address] [place] [address] Dr. Maggy Irving Eosinophils/100 WBC (Bld) 3.1 % Normal 0.9-7.0 Comment on above: Performed By: #### L IPID, T4, TSH, FT3, CMP #### [facility] [address] [place] [address] Dr. Maggy Irving Erythrocyte distribution width (RBC) [Ratio] 12.3 % Normal 11.0-15.0 Comment on above: Performed By: #### L IPID, T4, TSH, FT3, CMP #### [facility] [address] [place] [address] Dr. Maggy Irving Hematocrit (Bld) [Volume fraction] 41.6 % Critically low 42.0-54.0 Comment on above: Performed By: #### L IPID, T4, TSH, FT3, CMP #### [facility] [address] [place] [address] Dr. Maggy Irving Hemoglobin (Bld) [Mass/Vol] 14.6 g/dL Normal 14.0-18.0 Comment on above: Performed By: #### L IPID, T4, TSH, FT3, CMP #### [facility] [address] [place] [address] Dr. Maggy Irving IG # 0.02 10e3/ul Normal 0.00-0.03 Comment on above: Performed By: #### L IPID, T4, TSH, FT3, CMP #### [facility] [address] [place] [address] Dr. Maggy Irving IG % 0.4 % Normal 0.0-0.5 [facility] Comment on above: Performed By: #### L IPID, T4, TSH, FT3, CMP #### [facility] [address] [place] [address] Dr. Maggy Irving LYMPH # 0.9 103/ul Critically low 1.2-3.[address] [facility] Comment on above: Performed By: #### L IPID, T4, TSH, FT3, CMP #### [facility] [address] [place] [address] Dr. Maggy Irving Lymphocytes/100 WBC (Bld) 17.9 % Critically low 20.5-60.0 Comment on above: Performed By: #### L IPID, T4, TSH, FT3, CMP #### [facility] [address] [place] [address] Dr. Maggy Irving MANUAL DIFF REQ NO Normal [facility] Comment on above: Performed By: #### L IPID, T4, TSH, FT3, CMP #### [facility] [address] [place] [address] Dr. Maggy Irving MCH (RBC) [Entitic mass] 31.1 pg Normal 25.9-34.0 Comment on above: Performed By: #### L IPID, T4, TSH, FT3, CMP #### [facility] [address] [place] [address] Dr. Maggy Irving MCHC (RBC) [Mass/Vol] 35.1 g/dL Normal 29.9-35.2 Comment on above: Performed By: #### L IPID, T4, TSH, FT3, CMP #### [facility] [address] [place] [address] Dr. Maggy Irving MCV (RBC) [Entitic vol] 88.5 fL Normal 80.0-94.0 Comment on above: Performed By: #### L IPID, T4, TSH, FT3, CMP #### [facility] [address] [place] [address] Dr. Maggy Irving MONO # 0.4 103/ul Normal 0.3-0.8 Comment on above: Performed By: #### L IPID, T4, TSH, FT3, CMP #### [facility] [address] [address] [address] Maggy Irving Monocytes/100 WBC (Bld) 8.7 % Normal 1.7-12.0 Comment on above: Performed By: #### L IPID, T4, TSH, FT3, CMP #### [facility] [address] [place] [address] Dr. Maggy Irving NEUT # 3.4 103/ul Normal 1.4-6.5 Comment on above: Performed By: #### L IPID, T4, TSH, FT3, CMP #### [facility] [address] [place] [address] Dr. Maggy Irving Neutrophils/100 WBC (Bld) 69.7 % Normal 43.0-75.0 Comment on above: Performed By: #### L IPID, T4, TSH, FT3, CMP #### [facility] [address] [place] [address] Dr. Maggy Irving Platelet mean volume (Bld) [Entitic vol] 9.9 fL Normal 9.5-13.5 Comment on above: Performed By: #### L IPID, T4, TSH, FT3, CMP #### [facility] [address] [place] [address] Dr. Maggy Irving PLT 121 103/ul Critically low 150-[address] [facility] Comment on above: Performed By: #### L IPID, T4, TSH, FT3, CMP #### [facility] [address] [place] [address] Dr. Maggy Irving RBC 4.70 106/ul Normal 4.70-6.10 [facility] Comment on above: Performed By: #### L IPID, T4, TSH, FT3, CMP #### [facility] [address] [place] [address] Dr. Maggy Irving WBC 4.8 103/ul Normal 4.0-11.0 [facility] Comment on above: Performed By: #### L IPID, T4, TSH, FT3, CMP #### [facility] [address] [place] [address] Dr. Maggy Irving FREE T3on 04-09-2022 FREE T3 3.15 pg/mlL Normal 2.18-3.98 Comment on above: Performed By: #### L IPID, T4, TSH, FT3, CMP #### [facility] [address] [place] [address] Dr. Maggy Irving GLYCOHEMOGLOBIN A1Con 2021 ADA RECOMMENDATION SEE BELOW Normal [facility] Comment on above: Result Comment: ADA RECOMMENDED LIMIT 4.0 - 6.0 ADA THERAPEUTIC TARGET < 7.0 ACTION SUGGESTED > 7.0 Performed By: #### L IPID, T4, TSH, FT3, CMP #### [facility] [address] [place] [address] Dr. Maggy Irving Glucose [Mass/Vol] 123 mg/dL Normal [facility] Comment on above: Performed By: #### L IPID, T4, TSH, FT3, CMP #### [facility] [address] [place] [address] Dr. Maggy Irving HbA1c (Bld) [Mass fraction] 5.9 % Normal 4.5-6.2 Comment on above: Performed By: #### L IPID, T4, TSH, FT3, CMP #### [facility] [address] [place] [address] Dr. Maggy Irving LIPID PROFILEon 04-09-2022 CHOL-HDL RATIO NORM SEE BELOW Normal [facility] Comment on above: Result Comment: 3.3 - 4.4 LOW RISK 4.4 - 7.1 AVERAGE RISK 7.1 - 11.0 MODERATE RISK >11.0 HIGH RISK Performed By: #### L IPID, T4, TSH, FT3, CMP #### [facility] [address] [place] [address] Dr. Maggy Irving Cholesterol [Mass/Vol] 174 mg/dL Normal <=200 Comment on above: Performed By: #### L IPID, T4, TSH, FT3, CMP #### [facility] [address] [address] [address] Maggy Irving Cholesterol in HDL [Mass/Vol] 36 mg/dL Critically low 40-60 Comment on above: Performed By: #### L IPID, T4, TSH, FT3, CMP #### [facility] [address] [address] [address] Maggy Irving Cholesterol in LDL [Mass/Vol] 114.4 mg/dL Normal Comment on above: Performed By: #### L IPID, T4, TSH, FT3, CMP #### [facility] [address] [address] [address] Maggy Irving Cholesterol.total/Ch olesterol in HDL [Mass ratio] 4.8 {ratio} Normal Comment on above: Performed By: #### L IPID, T4, TSH, FT3, CMP #### [facility] [address] [address] [address] Maggy Irving HDL NORMAL > or = 60 mg/dl - LO W CARDIOVASCULAR RISK <40 mg/dl - HIGH CARDIOVASCULAR RISK Normal Comment on above: Performed By: #### L IPID, T4, TSH, FT3, CMP #### [facility] [address] [address] [address] Maggy Irving LDL CALC NORMAL SEE BELOW Normal [facility] Comment on above: Result Comment: <100 mg/dl OPTIMAL 100 - 129 mg/dl NEAR OR ABOVE OPTIMAL 130 - 159 mg/dl BORDERLINE HIGH 160 - 189 mg/dl HIGH >190 mg/dl VERY HIGH Performed By: #### L IPID, T4, TSH, FT3, CMP #### [facility] [address] [address] [address] Maggy Irving Triglyceride [Mass/Vol] 118 mg/dL Normal <=150 Comment on above: Performed By: #### L IPID, T4, TSH, FT3, CMP #### [facility] [address] [address] [address] Maggy Irving VLDL CALC 23.6 mg/dL Normal Comment on above: Performed By: #### L IPID, T4, TSH, FT3, CMP #### [facility] [address] [address] [address] Maggy Irving OCC BLD IMMUNO SCREENon 03-20 OCCULT BLOOD Negative Normal NEGATIVE Comment on above: Performed By: #### O BSCRN #### [facility] [address] [place] [address] Dr. Maggy Irving PROF 14(COMP METB)on 022 Albumin [Mass/Vol] 3.6 g/dL Normal 3.4-5.0 [facility] Comment on above: Performed By: #### L IPID, T4, TSH, FT3, CMP #### [facility] [address] [place] [address] Dr. Maggy Irving Albumin/Globulin [Mass ratio] 1.1 {ratio} Normal Comment on above: Performed By: #### L IPID, T4, TSH, FT3, CMP #### [facility] [address] [place] [address] Dr. Maggy Irving ALP [Catalytic activity/Vol] 47 U/L Normal 46-116 Comment on above: Performed By: #### L IPID, T4, TSH, FT3, CMP #### [facility] [address] [place] [address] Dr. Maggy Irving ALT [Catalytic activity/Vol] 31 U/L Normal 16-63 Comment on above: Performed By: #### L IPID, T4, TSH, FT3, CMP #### [facility] [address] [place] [address] Dr. Maggy Irving Anion gap [Moles/Vol] 10.2 mmol/L Normal Comment on above: Performed By: #### L IPID, T4, TSH, FT3, CMP #### [facility] [address] [place] [address] Dr. Maggy Irving AST [Catalytic activity/Vol] 17 U/L Normal 15-37 Comment on above: Performed By: #### L IPID, T4, TSH, FT3, CMP #### [facility] [address] [place] [address] Dr. Maggy Irving Bilirubin [Mass/Vol] 0.6 mg/dL Normal 0.2-1.0 Comment on above: Performed By: #### L IPID, T4, TSH, FT3, CMP #### [facility] [address] [place] [address] Dr. Mgagy Ivring Calcium [Mass/Vol] 8.1 mg/dL Critically low 8.5-10.1 Th e [facility] Comment on above: Performed By: #### L IPID, T4, TSH, FT3, CMP #### [facility] [address] [place] [address] Dr. Maggy Irving Chloride [Moles/Vol] 105 mmol/L Normal 98-107 Comment on above: Performed By: #### L IPID, T4, TSH, FT3, CMP #### [facility] [address] [place] [address] Dr. Maggy Irving CO2 [Moles/Vol] 29.6 mmol/L Normal 21.0-32.0 [facility] Comment on above: Performed By: #### L IPID, T4, TSH, FT3, CMP #### [facility] [address] [place] [address] Dr. Maggy Irving Creatinine [Mass/Vol] 0.89 mg/dL Normal 0.70-1.30 Comment on above: Performed By: #### L IPID, T4, TSH, FT3, CMP #### [facility] [address] [place] [address] Dr. Maggy Irving EGFR-AF MACEDONIAN >60 Normal >=60 [facility] Comment on above: Performed By: #### L IPID, T4, TSH, FT3, CMP #### [facility] [address] [place] [address] Dr. Maggy Irving EGFR-NON AF MACEDONIAN >60 Normal >=60 Comment on above: Performed By: #### L IPID, T4, TSH, FT3, CMP #### [facility] [address] [place] [address] Dr. Maggy Irving Globulin (S) [Mass/Vol] 3.2 g/dL Normal Comment on above: Performed By: #### L IPID, T4, TSH, FT3, CMP #### [facility] [address] [place] [address] Dr. Maggy Irving Glucose [Mass/Vol] 110 mg/dL Critically high 74-106 [facility] Comment on above: Performed By: #### L IPID, T4, TSH, FT3, CMP #### [facility] [address] [place] [address] Dr. Maggy Irving Potassium [Moles/Vol] 3.8 mmol/L Normal 3.5-5.1 Comment on above: Performed By: #### L IPID, T4, TSH, FT3, CMP #### [facility] [address] [place] [address] Dr. Maggy Irving Protein [Mass/Vol] 6.8 g/dL Normal 6.4-8.2 [facility] Comment on above: Performed By: #### L IPID, T4, TSH, FT3, CMP #### [facility] [address] [place] [address] Dr. Maggy Irving Sodium [Moles/Vol] 141 mmol/L Normal 136-145 [facility] Comment on above: Performed By: #### L IPID, T4, TSH, FT3, CMP #### [facility] [address] [place] [address] Dr. Maggy Irving Urea nitrogen [Mass/Vol] 17.0 mg/dL Normal 7.0-18.0 Comment on above: Performed By: #### L IPID, T4, TSH, FT3, CMP #### [facility] [address] [place] [address] Dr. Maggy Irving Urea nitrogen/Creatinine [Mass ratio] 19.1 mg/mg Normal Comment on above: Performed By: #### L IPID, T4, TSH, FT3, CMP #### [facility] [address] [place] [address] Dr. Maggy Irving T4on 04-09-2022 T4 [Mass/Vol] 7.90 ug/dL Normal 4.50-12.[address] [facility] Comment on above: Performed By: #### L IPID, T4, TSH, FT3, CMP #### [facility] [address] [id number] Maggy Irving TSHon 04-09-2022 TSH 4.949 uIU/mL Critically high 0.358-3.740 [facility] Comment on above: Performed By: #### L IPID, T4, TSH, FT3, CMP #### [facility] [address] [address] [address] Maggy Irving Vital Signs Date Time Vital Sign Value Performing Clinician Faci lity 04-06-2024 09:43-0400 Body height 177.[address] [facility] 04-06-2024 09:43-0400 Body mass index (BMI) [Ratio] 34.4 kg/m2 [facility] 04-06-2024 09:43-0400 Body temperature 98.3 [degF] [facility] 04-06-2024 09:43-0400 Body weight 109.[address] [facility] 04-06-2024 09:43-0400 Diastolic blood pressure 78 mm[Hg] [facility] 04-06-2024 09:43-0400 Heart rate 87 /min [facility] 04-06-2024 09:43-0400 Respiratory rate 18 /min [facility] 04-06-2024 09:43-0400 SaO2% (BldA) [Mass fraction] 96 % [facility] 04-06-2024 09:43-0400 Systolic blood pressure 146 mm[Hg] [facility] Encounters Encounter Date Encounter Type Care Provider Facility Start: 06-04-2025 ambulatory Chirag STINSON Facility :[facility] Start: 05-07-2025 ambulatory Chirag STINSON Facility:[facility] Start: 04-27-2024 End: 04-27-2024 ambulatory Marcella Gross [facility] Work Phone: Start: 04-27-2024 End: 04-27-2024 Departed Referred MD Marcella Gross Work Phone: [facility] Start: 04-06-2024 End: 04-06-2024 ambulatory [facility] Work Phone: Start: 04-06-2024 End: 04-06-2024 Patient encounter procedure [facility] Work Phone: Start: 02-10-2023 End: 02-11-2023 ambulatory IVELISSE ORNELAS Facility:[facility] Start: 02-07-2023 End: 02-07-2023 ambulatory IVELISSE ORNELAS Facility:[facility] Start: 02-06-2023 Encounter for preprocedural laboratory examination IVELISSE ORNELAS Start: 01-31-2023 End: 02-01-[address] MARCELLA [...] L IPID, T4, TSH, FT3, CMP #### [facility] [address] [place] [address] Dr. Maggy Irving Payers Date Payer Category Payer Self-pay 1957 Medicare [id number] 1957 Unknown [id number] 1950 Unknown [id number] 2.16.84 [id number] 1950 Unknown [id number] 2.16.84 [id number] 1952 Unknown [id number] 2.16.84 [id number] 1952 Unknown [id number] 2.16.84 [id number] 1952 Unknown [id number] 2.16.84 0.1.818153.3.579.2.593 1952 Unknown [id number] 2.16.84 0.1.079421.3.579.2.593 1952 Unknown [id number] 2.16.84 0.1.979809.3.579.2.593 1952 Unknown [id number] 2.16.84 0.1.886382.3.579.2.593 1952 Unknown [id number] 2.16.84 0.1.048873.3.579.2.593 1952 Unknown [id number] 2.16.84 0.1.540193.3.579.2.593 1952 Unknown [id number] 2.16.84 [id number] 1952 Unknown [id number] 2.16.8 [id number] Medicare Medicare [id number] 063 [id number] Unknown [id number] 2.16.8 [id number] Social History Date Type Detail Facility [facility] Work Phone: Start: 1950 Sex Assigned At Male [facility] Clinical Note 02-07-2023 Note Date & [...] authenticated by: OLVIN KHANNA Date: 2023-02-07 09:41 Evaluation note Note Date & Type Note Facility Evaluation note Diagnosis Onset Date Bacterial conjunctivitis of right eye acute [facility] Work Phone: Summary Purpose Family History [...] and content) DATE CREATED AUTHOR 02/25/2023 [facility] DATE CREATED AUTHOR AUTHOR'S ORGANIZ ATION 05/02/2024 [facility] DATE CREATED AUTHOR AUTHOR'S ORGANIZ ATION 05/08/2025 [facility] Care Teams (unrecognized sec tion [...] BE BASED ON THE PRIMARY CLINICAL RECORDS. [employer] [facility]. provides no warranty or guarantee of the accuracy or completeness of information in this document.
== END 2025-05-21 10:01 | disposition home or self-care (01) ==
LOC: WC 10:00
PROVIDERS: PCP Family Medicine; Visit Provider Physician Assistant
DX: L97.412 Non-pressure chronic ulcer of right heel and midfoot with fat layer exposed (principal)
CPT/HCPCS: 73630; G0463

== ENCOUNTER 2025-05-24 06:42 | Outpatient (OUT) | payer MEDICARE, OTHER, SELFPAY ==
--- OUTSIDE RECORDS SUMMARY | 2025-05-06 05:00 | XMS_ITS ---
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 Seen eye doctor and had script adjusted Medications Medication SIG (Take, Route, Frequency, Duration) Notes Start Date End Date Status Levothyroxine Sodium 75 MCG take 1 table t by mouth every morning ON AN EMPTY STOMACH Orally Once a day for 90 days Active Doxazosin Mesylate 4 MG take 1 tablet by mouth once daily Orally Once a day for 90 days Active Aspirin 325 MG 2 tablet Orally Once a day Active Social History Tobacco Use: Social History Observation Description Date Details (start date - stop date) Never Smoker NA - NA Tobacco Use/Smoking Question Answer Notes Patient is a nonsmoker AUDIT-C (Standard) Question Answer Notes Did you have a drink containing alcohol in the p ast year? No Points 0 Interpretation Negative Vital Signs Weight 244.8 lbs 05/06/2025 Height 70 in 05/06/2025 Blood pressure systolic 144 mm Hg 05/06/20 25 Blood pressure diastolic 86 mm Hg 025 BMI 35.12 kg/m2 05/06/2025 Procedures Procedure Date Ordered Date Performed Result Body Sit e Cerumen Removal - performed 05/06/2025 N/A Encounters Encounter Location Date Provider Diagnosis [facility] [address] [place] [address] 05/06/2025 Quinn Gross Decreased testostero ne level R79.89 ; Essential (primary) hypertension I10 ; Neuropathy G62.9 ; Cerumen impaction H61.20 and Bilateral impacted cerumen H61.23 Assessments Encounter Date Diagnosis (ICD Code) Assessment Notes Treatment Notes Treatment Clinical Notes Section Notes 05/06/2025 Decreased testosterone level (ICD-10 - R79.89) checking level 05/06/2025 Essential (primary) hypertension (ICD-10 - I10) not bad today - didnt cristian meds 05/06/2025 Neuropathy (ICD-10 - G62.9) stabel no complaints 05/06/2025 Cerumen impaction (ICD-10 - H61.20) 05/06/2025 Bilateral impacted cerumen (ICD-10 - H61.23) Plan Of Treatment Medication Medication Name Sig Start Date Stop Date Notes Levothyroxine Sodium 75 MCG take 1 table t by mouth every morning ON AN EMPTY STOMACH Orally Once a day for 90 days Doxazosin Mesylate 4 MG take 1 tablet by mouth once daily Orally Once a day for 90 days Treatment Notes Assessment Notes Decreased testosterone level checking le arianna Essential (primary) hypertension not bad today - didnt cristian meds Neuropathy stabel no complaints Pending Test Test Name Order Date HEMOGLOBIN A1C (GLYCO) 05/06/2025 INSULIN, TOTAL 05/06/2025 LIPID PANEL (CHOL/TRIG/HDL/LDL) 05/06/20 25 URIC ACID 05/06/2025 Cerumen Removal - performed 05/06/2025 STOOL OCCULT BLOOD 05/06/2025 TESTOSTERONE, TOTAL 05/06/2025 THYROID PANEL (T4/TSH/FREE T3) PSA, SCREENING 05/06/2025 CMP (COMP MET TORRES) w/eGFR CKD-EPI 2024 CBC WITH DIFF 05/06/2025 Next Appt Details Provider Name:Quinn Palacios Renato, 09:15:00 AM, [address] [place], [address], Progress Notes * Michael OJEDA LDOB:1949 (75 yo M)Acc No.[id number]:05/06/2025 Progress Note Patient: Michael HAGER Provider: Marina Gross ([facility])MD :1950 A ge:75 Y S ex:Male Date:05/06/2025 Address:[address] [place] [address], [place], [id number] Check In:08:45 AM ESTCheck O ut:09:30 AM EST Subjective: * Chief Complaints: * 1 . Presents to office alone for yearly check up. 2. c/o frequent headache since first of the year. Seen eye doctor and had script adjusted. * HPI: G eneral: stil with headadache despite change in eye glasses bp up some -. * ROS: E ENT: hearing changes d enies. v isual changes d enies.?non-healing mouth sores d enies. s wollen glands or neck lumps d enies. h oarseness d enies. s ore throat d enies. d ifficulty swallowing d enies. n ose bleeds d enies. n kenny congestion d enies. e ar ache d enies. e ar discharge?denies. r inging in ears d enies. l ight sensitivity d enies. e ye pain d enies. b lurring d enies. e ye irritation d enies. d ouble vision d enies.?vision loss d enies. G eneral/Constitutional: Sweats: D enies. F atigue d enies. S leep problems d enies. A norexia d enies. M alaise d enies. W eight loss d enies.?Fatigue or Weakness d enies. F ever or Chills d enies. C ardiovascular: Shortness of Breath w/lying flat d enies. L ightheadedness/dizziness d enies. C hest tightness/ heavy pressure d enies. S welling of legs, ankles, or feet d enies. W aking up with shortness of breath d enies. C hest pain denies. P alpitations d enies. W eight gain d enies. R espiratory: Chronic or frequent cough d enies. C oughing up blood?denies. D ifficulty breathing d enies. P roductive cough d enies. S noring?denies. S hortness of breath that awakens from sleep (PND) d enies. C hest pain d enies. S putum production d enies. W heezing d enies. M usculoskeletal: Joint pain d enies. J oint Fluid d enies. B ack pain d enies. K nee pain d enies. N charanjit pain d enies. J oint Stiffness d enies. M uscle cramps d enies. W eakness of muscles d enies. A rthritis d enies. M uscle aches d enies. P ain in shoulder(s) d enies. S wollen joints d enies. 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 Modified On:02/07/2023 Status:confirmed M25.562 Pain in left knee Modified On:01/28/2023 Status:confirmed S92.405A Nondisplaced unspeci fied fracture of left great toe, initial encounter for closed fracture Modified On:01/28/2023 Status:confirmed R06.09 Dyspnea on exertion Modified On:02/07/2023 Status:confirmed H93.19 Tinnitus Modified On:01/28/2023 Status:confirmed R60.0 Edema leg Modified On:01/28/2023 Status:confirmed K64.9 Hemorrhoids Modified On:01/28/2023 Status:confirmed E66.3 Over weight Modified On:01/28/2023 Status:confirmed N52.9 Impotence Modified On:01/28/2023 Status:confirmed 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 Modified On:01/28/2023 Status:confirmed R37 Sexual dysfunction Modified On:01/28/2023 Status:confirmed K40.90 Hernia, inguinal Modified On:01/28/2023 Status:confirmed H02.60 Xanthelasma Modified On:01/28/2023 Status:confirmed R79.89 Decreased testostero ne level Modified On:01/28/2023 Status:confirmed I10 Essential (primary) hypertension Modified On:12/09/2022 Status:confirmed L97.513 Ulcer of right foot with necrosis of muscle Modified On:12/14/2022 Status:confirmed G62.9 Neuropathy Modified On:12/14/2022 Status:confirmed 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 Modified On:02/28/2023 Status:confirmed M20.41 Hammertoe of right f oot Modified On:12/14/2022 Status:confirmed L97.411 Chronic ulcer of rig ht heel limited to breakdown of skin Modified On:02/28/2023 Status:confirmed 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 Modified On:07/28/2023 Status:confirmed I10 HTN (hypertension) Modified On:02/17/2023 Status:confirmed L89.891 Decubitus ulcer of l eft foot, stage 1 Modified On:07/28/2023 Status:confirmed E05.90 Thyrotoxicosis, unsp ecified without thyrotoxic crisis or storm Modified On:05/27/2023 Status:confirmed M21.6X2 Other acquired defor mities of left foot Modified On:05/11/2024U Status:confirmed M21.6X1 Other acquired defor mities of right foot Modified On:07/26/2023U Status:confirmed M24.572 Contracture, left an kle Modified On:07/26/2023U Status:confirmed M24.571 Contracture, right a nkle Modified On:07/26/2023 Status:confirmed M25.371 Other instability, r ight ankle Modified On:07/26/2023U Status:confirmed M21.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 Modified On:07/28/2023U Status:confirmed D72.829 Elevated white blood cell count Modified On:04/24/2024U Status:confirmed M67.40 Ganglion cyst Modified On:05/03/2024W/U Status:confirmed M24.575 Contracture, left fo ot Modified On:05/11/2024/U Status:confirmed 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 Modified On:11/12/2024/U Status:confirmed D64.9 Anemia Modified On:05/07/2025/U Status:confirmed R19.5 Occult blood positiv e stool Modified On:05/07/2025/U Status:confirmed * Medical History: H ypertension, Hyperlipidemia, Neuropathy, Cjlrzco-Ytzmi-Gwirs atrophy, Cavus deformity of bilateral feet, Bilateral foot pain, Non-pressure chronic ulcer of other part of right foot limited to breakdown of skin, Dyspnea on exertion, Edema leg, Over weight, Impotence, Pain in left knee, Decreased testosterone level, Nondisplaced unspecified fracture of left great toe, initial encounter for closed fracture, Tinea cruris, Lipoma of spermatic cord, Hernia, inguinal, Tinnitus, Sexual dysfunction, Hemorrhoids, Xanthelasma. * Surgical History: H ernia Repair , Foot Surgery- Dr. Schneider 01/2023. * Family History: F ather: , diagnosed with Unspecified heart disease. M other: . * Social History: T obacco Use: T obacco Use/Smoking P atient is a n onsmoker D rug/Alcohol: A BHUMIKA-C (Standard) D id you have a drink containing alcohol in the past year? N o P oints 0 I nterpretation N egative * Medications: T aking Aspirin 325 MG Tablet 2 tablet Orally Once a day , Taking Doxazosin Mesylate 4 MG Tablet take 1 tablet by mouth once daily Orally Once a day , Taking Levothyroxine Sodium 75 MCG Tablet take 1 tablet by mouth every morning ON AN EMPTY STOMACH Orally Once a day , Medication List reviewed and reconciled with the patient * Allergies: N .K.D.A. Objective: * Vitals: W t:244.8lbs, Ht: 70 in, BP:144/86mm Hg, BMI:35.12Index, Ht-cm: 177.8 cm, Wt-k.04 kg. * Examination: P hysical Exam: GENERAL: w ell developed, well nourished, in no acute distress. HEAD: n ormocephalic/atraumatic. EYES: p upils equal, round and reactive to light, conjunctivae and sclerae normal. EARS: b ilater erumen impaction. NOSE: n o deformity, discharge, inflammation, or lesions.? MOUTH: m ucous membranes moist, normal oropharynx and posterior pharynx without lesions or exudates, tongue normal, dentition normal. NECK: n charanjit supple, no masses or palpable cervical nodes, trachea midline, thyroid without nodules, masses, tenderness, or enlargement. CHEST: n o chest wall deformity, no chest wall tenderness.? LUNGS: n ormal respiratory effort and clear to auscultation, no wheezes, rales, or rhonchi, good air exchange. CARDIO: r egular rate and rhythm, normal S1 and S2, nor murmur, rub, or gallop. PULSES: n ormal capillary refill. ABDOMEN: s oft, non-distended, non-tender, no masses. MUSCULOSKELETAL: n o deformity or scoliosis noted, normal range of motion, joints normal, no erythema, edema, effusion, or ecchymosis. EXTREMITY: n o clubbing, cyanosis, edema, or deformity with normal ROM in both upper and lower bilateral extremities. NEUROLOGIC: g rossly normal. SKIN: n o rashes, ulcerations, or suspicious lesions. LYMPH NODES: n o cervical adenopathy, nodes normal. MENTAL STATUS: a lert and oriented x3, normal mood and affect. Assessment: * Assessment: 1. D ecreased testosterone level - R79.89 (Primary) 2 . E ssential (primary) hypertension - I10 3 . N europathy - G62.9 4 . C erumen impaction - H61.20 5 . B ilateral impacted cerumen - H61.23 Plan: * Treatment: 2. E ssential (primary) hypertension L AB: HEMOGLOBIN A1C (GLYCO) L AB: INSULIN, TOTAL L AB: LIPID PANEL (CHOL/TRIG/HDL/LDL) L AB: URIC ACID L AB: STOOL OCCULT BLOOD L AB: THYROID PANEL (T4/TSH/FREE T3) L AB: PSA, SCREENING L AB: CMP (COMP MET TORRES) w/eGFR CKD-EPI L AB: CBC WITH DIFF Notes: not bad today - didnt cristian meds 3. N europathy L AB: HEMOGLOBIN A1C (GLYCO) L AB: INSULIN, TOTAL L AB: LIPID PANEL (CHOL/TRIG/HDL/LDL) L AB: URIC ACID L AB: STOOL OCCULT BLOOD L AB: THYROID PANEL (T4/TSH/FREE T3) L AB: PSA, SCREENING L AB: CMP (COMP MET TORRES) w/eGFR CKD-EPI L AB: CBC WITH DIFF Notes: stabel no complaints 4. C erumen impaction P rocedure: Cerumen Removal - performed * Procedure Codes: 6 9210 REMOVE IMPACTED CERUMEN * Preventive Medicine: Screenings/Counseling: B [facility] ACTION PLAN Above Normal BMI Follow-up D ietary management education, guidance, and counseling See treatment section of progress note for complete details of management plan. F ALL RISK SCREENING Fall Risk Assessment: N o falls in the past year * * Sign off status: Completed Visit Status: C HK (Check Out) true * Provider: Marina Gross ([facility])MD Date: 0 05/06/2025 Generated for Printi ng/Faxing/eTransmitting on: 0 05/24/2025 06:43 AM EDT History and Physical Notes * HPI (History of Present Illness) Category Sub-Category Detail Notes Category Not es General stil with headadache despite change in eye glasses bp up some - Examination Category Sub-Category Detail Notes Category Not es Physical Exam GENERAL: well developed, well nourished, in no acute distress HEAD: normocephalic/atraum atic EYES: pupils equal, round and reactive to light, conjunctivae and sclerae normal EARS: bilater erumen impac tion NOSE: no deformity, discha rge, inflammation, or lesions MOUTH: mucous membranes jazmine st, normal oropharynx and posterior pharynx without lesions or exudates, tongue normal, dentition normal NECK: neck supple, no mass es or palpable cervical nodes, trachea midline, thyroid without nodules, masses, tenderness, or enlargement CHEST: no chest wall deform ity, no chest wall tenderness LUNGS: normal respiratory e ffort and clear to auscultation, no wheezes, rales, or rhonchi, good air exchange CARDIO: regular rate and rhy thm, normal S1 and S2, nor murmur, rub, or gallop PULSES: normal capillary ref ill ABDOMEN: soft, non-distended, non-tender, no masses RECTAL: MUSCULOSKELETAL: no deformity or scol iosis noted, normal range of motion, joints normal, no erythema, edema, effusion, or ecchymosis EXTREMITY: no clubbing, cyanosi s, edema, or deformity with normal ROM in both upper and lower bilateral extremities NEUROLOGIC: grossly normal SKIN: no rashes, ulceratio ns, or suspicious lesions LYMPH NODES: no cervical adenopat hy, nodes normal MENTAL STATUS: alert and oriented x 3, normal mood and affect
--- OUTSIDE RECORDS SUMMARY | 2025-05-06 09:11 | XMS_ITS ---
Author Organization The [facility] in [place] Address [address] [place] [address] Care Team Providers Care Lead Qa Analyst Name Role Phone Quinn Salamanca Primary Care Provider Results Component Value Reference Range Notes US abdomen complete Reviewed date:05/14/2025 04:06:22 PM Interpretation: Performing Lab: Notes/Report: Source Facility: [place] [address] Ultrasound Report Signed Patient: MICHAEL OJEDA MR#: [id number] : 1950 Acct:[id number] Age/Sex: 75 / M ADM Date: 05/14/25 Loc: US Attending Dr: Marcella Salamanca M.D. Ordering Physician: Marcella Salamanca M.D. Date of Service: 05/14/25 Procedure(s): US abdomen complete Accession Number(s): [id number] cc: Marcella Salamanca M.D. [place] [address] Patient Name: MICHAEL OJEDA MRN: [id number] date: 1950 Sex: M Assigned Patient Location: US Current Patient Location: US Accession/Order Number: [id number] Exam Date: 05/14/2025 07:02 Report Date: 05/14/2025 09:39 At the request of: MARCELLA SALAMANCA MD Procedure: US abdomen complete COMPLETE ABDOMINAL ULTRASOUND CLINICAL HISTORY: D64.9 Anemia, R74.8 Elevated liver enzymes COMPARISON: None The gallbladder is physiologically distended without shadowing calculi, wall thickening or pericholecystic fluid. No intra- or extrahepatic biliary dilatation is evident. The common duct measures 1-2. The liver shows coarsened increased echogenicity. This might be fatty infiltration. There are scattered lobulated cystic structures throughout the liver, some with septation. The largest is at the dome measuring 4.9 x 4.7 x 3.3 cm. There is appropriate hepatopetal flow within the main portal vein. The hepatic veins are patent. The visualized portions of the pancreas show no significant sonographic abnormality. The spleen is within normal limits for size and echogenicity with craniocaudal dimension of 12.8 cm. The right kidney measures 9.3 cm in the left 13.5 cm in craniocaudal dimension . No hydronephrosis is seen. The IVC, as visualized is patent. No aortic aneurysm is noted. There is no ascites. US/US abdomen complete IMPRESSION: POSSIBLE FATTY LIVER WITH MULTIPLE CYSTS. NO GALLBLADDER PATHOLOGY. NO OBSTRUCTIVE UROPATHY. Impression dictated by: Jamilah Mistry M.D. 05/14/2025 9:39 AM Dictation Location: [place] [address] Electronically authenticated by: [id number] Y Date: 05/14/2025 09:39 Dictated By: Jamilah Mistry M.D. Signed By: 05/14/25 0942 DD/ 0939 TD/TT: Sound Recording Technician: [place] [id number] Ultrasound Report Signed Patient: BASHIR OJEDA MR#: [id number] : 1950 Acct:[id number] Age/Sex: 75 / M ADM Date: 05/14/25 Loc: US Attending Dr: Marcella Salamanca M.D. Ordering Physician: Marcella Salamanca M.D. Date of Service: 05/14/25 Procedure(s): US abd omen complete Accession Number(s): [id number] cc: Marcella Salamanca M.D. [place] [id number] Patient Name: MICHAEL OJEDA MRN: [id number] date: 1950 Sex: M Assigned Patient Location: US Current Patient Location: US Accession/Order Numb er: [id number] Exam Date: 05/14/2025 07:02 Report Date: 05/14/2025 09:39 At the request of: MARCELLA SALAMANCA MD Procedure: US abdomen complete COMPLETE ABDOMINAL ULTRASOUND CLINICAL HISTORY: D6 4.9 Anemia, R74.8 Elevated liver enzymes COMPARISON: None The gallbladder is physiologically distended without shadowing calculi, wall thickening or perich olecystic fluid. No intra- or extrahepatic biliary dilatation is eviden t. The common duct measures 1-2. The liver shows coarsened increased echogenicity. This might be fatty infiltration. There are scattered lobula blanca cystic structures throughout the liver, some with septation. The large st is at the dome measuring 4.9 x 4.7 x 3.3 cm. There is appropriate hepatope josie flow within the main portal vein. The hepatic veins are patent. The visu alized portions of the pancreas show no significant sonographic abnormal ity. The spleen is within normal limits for size and echogenicity with cr aniocaudal dimension of 12.8 cm. The right kidney measures 9.3 cm in t he left 13.5 cm in craniocaudal dimension . No hydronephrosis is se en. The IVC, as visualized is patent. No aortic aneurysm is noted. There is no ascites. U S/US abdomen complete IMPRESSION: POSSIBLE FATTY LIVER WITH MULTIPLE CYSTS. NO GALLBLADDER PATHOLOGY. NO OBSTRUCTIVE UROPATHY. Impression dictated by: Jamilah Mistry M.D. 05/14/2025 9:39 AM Dictation Location: [place] [address] Electronically authe nticated by: [id number] Y Date: 05/14/2025 09:39 Dictated By: Jamilah Mistry M.D. Signed By: 05/14/2542 DD/ 8 TD/TT: Sound Recording Technician: REASON FOR VISIT lab results- Problems Problem Type SNOMED Code ICD Code Onset Dates Problem Status W/U Status Risk Notes Problem Anemia (092127063) Anemia (D64.9) Active confirmed Encounters Encounter Location Date Provider Diagnosis [facility] [address] [place] [address] 05/06/2025 Quinn Salamanca Anemia D64.9 and Elevated liver enzymes R74.8 Assessments Encounter Date Diagnosis (ICD Code) Assessment Notes Treatment Notes Treatment Clinical Notes Section Notes 05/06/2025 Anemia (ICD-10 - D64.9) 05/06/2025 Elevated liver enzymes (ICD-10 - R74.8) Plan Of Treatment Pending Test Test Name Order Date CBC W/AUTO DIFF 05/06/2025 Next Appt Details Provider Name:Quinn Salamanca, 09:15:00 AM, [address] [facility], [place], [address], Progress Notes * Michael OJEDA LDOB:1949 (75 yo M)Acc No.[id number]:05/06/2025 Patient: Johnson GABRIELMichael :1950 A ge:75 Y S ex:Male Address:[address] [place] [address], [phone] Subjective: * Chief Complaints: * L ab results- * Medical History: * Surgical History: * Hospitalization/Major Diagno stic Procedure: * Medications: Objective: * Vitals: * Physical Examination: Assessment: * Assessment: 1. A nemia - D64.9 (Primary) 2 . E levated liver enzymes - R74.8 Plan: * Treatment: 2. E levated liver enzymes L AB: CBC W/AUTO DIFF I maging: US abdomen complete * Procedure Codes: * true * Date: Generated for Printi ng/Faildefonsog/eTransmitting on: 0 05/24/2025 06:44 AM EDT
--- OUTSIDE RECORDS SUMMARY | 2025-05-06 09:55 | XMS_ITS ---
Author Organization [facility] in [place] Address [address] [place] [address] Care Team Providers Care Wood Type Cutter Name Role Phone Quinn Gross Primary Care Provider Reason For Referral Diagnosis 1 Anemia (D64.9) Diagnosis 2 Occult blood positiv e stool (R19.5) Referral Organization [facility] Referring Provider First Name Quinn Referring Provider Last Name Samguido Referring Provider Speciality Family Med jorge Referred Provider Chirag Montaño Referred Provider Specialty General Surg yanira Referral Priority Routine REASON FOR VISIT + OB- Problems Problem Type SNOMED Code ICD Code Onset Dates Problem Status W/U Status Risk Notes Problem Abnormal feces (916413888) Occult blood positive stool (R19.5) Active confirmed Encounters Encounter Location Date Provider Diagnosis [facility] [address] [place] [address] 05/06/2025 Quinn Gross Anemia D64.9 and Occult blood positive stool R19.5 Assessments Encounter Date Diagnosis (ICD Code) Assessment Notes Treatment Notes Treatment Clinical Notes Section Notes 05/06/2025 Anemia (ICD-10 - D64.9) 05/06/2025 Occult blood positive stool (ICD-10 - R19.5) Plan Of Treatment Referrals Referral Date Details 05/07/2025 05/07/2025Chirag Next Appt Details Provider Name:Quinn Gross, 09:15:00 AM, [address] [place], [address], Progress Notes * Michael OJEDA LDOB:1949 (75 yo M)Acc No.[id number]:05/06/2025 Patient: Michael HAGER :1950 A ge:75 Y S ex:Male Address:[address] [place] [phone] Subjective: * Chief Complaints: * + OB- * Medical History: * Surgical History: * Hospitalization/Major Diagno stic Procedure: * Medications: Objective: * Vitals: * Physical Examination: Assessment: * Assessment: 1. A nemia - D64.9 2 . O ccult blood positive stool - R19.5 ? Plan: * Treatment: 2. O ccult blood positive stool Referral To:Chirag Montaño General Surgery Reason: * Procedure Codes: * true * Date: Generated for Armen augustine/Jeronimo/eTransmitting on: 0 05/24/2025 06:44 AM EDT Consultation Request Notes Referral Date Referring Provider Referred Provider Not es 05/07/2025 Quinn Gross Michael
--- OUTSIDE RECORDS SUMMARY | 2025-05-07 11:29 | XMS_ITS ---
Author Organization [facility] in [place] Address [address] [address] Care Team Providers Care Horse Wrangler Name Role Phone Quinn Gross Primary Care Provider REASON FOR VISIT lab results Medications Medication SIG (Take, Route, Frequency, Duration) Notes Start Date End Date Status Ferrous Sulfate 325 (65 Fe) MG 1 tablet Orally twice daily for 30 days 05/07/2025 Active Encounters Encounter Location Date Provider Diagnosis [facility] [address] [place] [address] 05/07/2025 Quinn Gross Plan Of Treatment Medication Medication Name Sig Start Date Stop Date Notes Ferrous Sulfate 325 (65 Fe) MG 1 tablet Orally twice daily for 30 days 05/07/2025 Next Appt Details Provider Name:Quinn Gross, 09:15:00 AM, [address] [place], [address], Progress Notes * Michael OJEDA LDOB:1949 (75 yo M)Acc No.[id number]:05/07/2025 Patient: Johnson Michael GABRIEL :1950 A ge:75 Y S ex:Male Address:[address] [place] [address], [place], [address] * Refills Start Ferrous Sulfate Tablet, 325 (65 Fe) MG, Orally, 60, 1 tablet, twice daily, 30 days, Refills=11 * true * Date: Generated for Armen augustine/Jeronimo/Lindsey on: 0 05/24/2025 06:43 AM EDT
--- OUTSIDE RECORDS SUMMARY | 2025-05-14 12:05 | XMS_ITS ---
Author Organization [facility] [place] Address [address] [place] [address] Care Team Providers Care Copy Messenger Name Role Phone Quinn Gross Primary Care Provider REASON FOR VISIT review US Encounters Encounter Location Date Provider Diagnosis [facility] [address] [place] [address] 05/14/2025 Quinn Renato Plan Of Treatment Next Appt Details Provider Name:Quinn Gross, 09:15:00 AM, [address] [place], [address], Progress Notes * Michael OJEDA LDOB:1949 (75 yo M)Acc No.[id number]:05/14/2025 Patient: Michael HAGER :1950 A ge:75 Y S ex:Male Address:[address] [place] [address], [place], [address] * true * Date: Generated for Printi ng/Faildefonsog/eTransmitting on: 0 05/24/2025 06:43 AM EDT
--- OUTSIDE RECORDS SUMMARY | 2025-05-24 06:43 | XMS_ITS | Patient Health Record ---
Author Organization [facility] Ma in [place] Address [address] [place] [address] Care Team Providers Care Corrections Sergeant Name Role Phone Quinn Salamanca Primary Care Provider [phone] [place] Gaudencio Hyman [phone] Allergies No Known Allergies Results Component Value Reference Range Notes PSA SCREENING Reviewed date:05/06/2025 01:12:23 PM Interpretation: Performing Lab: Notes/Report: [facility] , Prostate Specific Antigen Scrn 2.21 <=4.00 ng/mL Performing Lab: see note ML - [facility] LB Occult Blood* Reviewed date:05/06/2025 01:56:05 PM Interpretation: Performing Lab: Notes/Report: [facility] , Occult Blood Positive Performing Lab: see note - [facility] LB XR foot RT min 3V Reviewed date:05/22/2025 11:09:08 AM Interpretation: Performing Lab: Notes/Report: Source Facility: [facility]-[address] [place] [address] [place] [address] XRay Report Signed Patient: SILVINO OJEDA MR#: [id number] : 1950 Acct:[id number] Age/Sex: 75 / M ADM Date: 05/21/25 Loc: RAD Attending Dr: Noelle ROLLE Ordering Physician: Noelle Paiz Date of Service: 05/21/25 Procedure(s): XR foot RT min 3V Accession Number(s): [id number] cc: Marcella Salamanca M.D.; Noelle Paiz [address] [address] Patient Name: SILVINO OJEDA MRN: [facility]:[id number] date: 1950 Sex: M Assigned Patient Location: [facility] Current Patient Location: Accession/Order Number: [id number] Exam Date: 05/21/2025 09:44 Report Date: 05/21/2025 10:10 At the request of: NOELLE ROLLE Procedure: XR foot RT min 3V RIGHT FOOT - 3 views CLINICAL DATA: Chronic right foot pain and ulcer COMPARISON: 05/02/2024 Weightbearing AP, lateral and oblique views were obtained. There is osteopenia. 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 There is no acute fracture, dislocation or bony destruction. Similar degenerative changes are again noted including calcaneal spurs. There are no significant soft tissue abnormalities. XR/XR foot RT min 3V IMPRESSION: NO ACUTE BONY FINDINGS. Impression dictated by: Jamilah Mistry M.D. 05/21/2025 10:10 AM Dictation Location: [place] [address] Electronically authenticated by: [id number] Y Date: 05/21/2025 10:10 Dictated By: Jamilah Mistry M.D. Signed By: 05/21/25 1013 DD/ 1010 TD/TT: Naval Architect Specialist: [place] [address] XRay Report Signed Patient: SILVINO OJEDA MR#: [id number] : 1950 Acct:[id number] Age/Sex: 75 / M ADM Date: 05/21/25 Loc: [facility] Attending Dr: Maria M ROLLE Ordering Physician: Noelle Paiz Date of Service: 05/21/25 Procedure(s): XR desire t RT min 3V Accession Number(s): [id number] cc: Marcella Salamanca M.D. ; Noelle Paiz [address] [address] Patient Name: SILVINO OJEDA MRN: [facility]:[id number] date: 1950 Sex: M Assigned Patient Location: [facility] Current Patient Location: Accession/Order Numb er: [id number] Exam Date: 05/21/2025 09:44 Report Date: 05/21/2025 10:10 At the request of: NOELLE ROLLE Procedure: XR foot R T min 3V RIGHT FOOT - 3 views CLINICAL DATA: Chron ic right foot pain and ulcer COMPARISON: 05/02/2024 Weightbearing AP, lateral and oblique views were obtained. There is osteopenia. 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 There is no acute fracture, dislocation or bony destruction. Similar degenerative changes are again noted including calcaneal spurs. There are no significant soft tissue abnormalities. XR/XR foot RT min 3V IMPRESSION: NO ACUTE BONY FINDINGS. Impression dictated by: Jamilah Mistry M.D. 05/21/2025 10:10 AM Dictation Location: [place] [address] Electronically authenticated by: [id number] Y Date: 05/21/2025 10:10 Dictated By: Jamilah Mistry M.D. Signed By: 05/21/25 1013 DD/ 1010 TD/TT: Naval Architect Specialist: Testosterone Reviewed date:05/07/2025 03:31:36 PM Interpretation: Performing Lab: Notes/Report: [facility] , Testosterone 150 264-916 ng/dL Adult male reference interval is based on a population of Hospice Volunteer: Luis Ruby PhD, Phone: [phone] [address] [place], [place] [phone] old. Reynaldo et.al. JCEM 2017,102;5344-3151. PMID: healthy nonobese males (BMI <30) between 19 and 39 years Performed at: [facility] [id number]. Performing Lab: see note [facility] LB URIC ACID SERUM Reviewed date:05/06/2025 01:12:23 PM Interpretation: Performing Lab: Notes/Report: [facility] , Uric Acid 6.0 3.5-7.2 mg/dL Performing Lab: see note ML - [facility] LB TSH Reviewed date:05/06/2025 01:12:23 PM Interpretation: Performing Lab: Notes/Report: [facility] , Thyroid Stimulating Hormone 2.537 0.358-3.740 uIU/mL Performing Lab: see note ML - [facility] LB T4 Reviewed date:05/06/2025 01:12:23 PM Interpretation: Performing Lab: Notes/Report: [facility] , T4 Thyroxine 10.60 4.50-12.10 ug/dL Performing Lab: see note ML - [facility] LB PROF 14(COMP METB) Reviewed date:05/06/2025 01:12:23 PM Interpretation: Performing Lab: Notes/Report: [facility] , Sodium 140 136-145 mmol/L Potassium 4.2 3.5-5.1 mmol/L Chloride 106 98-107 mmol/L Carbon Dioxide 30.3 21.0-32.0 mmol/L Anion Gap 7.9 Glucose 112 74-106 mg/dL Blood Urea Nitrogen 15.0 7.0-18.0 mg/dL Creatinine 0.73 0.70-1.30 mg/dL Estimated GFR ( Nery >60 >=60 mL/min/1.73m 2 Estimated GFR (Non- Kristen >60 >=60 mL/min/1.73m 2 BUN Creatinine Ratio 20.5 Calcium 8.8 8.5-10.1 mg/dL Bilirubin Total 0.7 0.2-1.0 mg/dL Aspartate Amino Transferase 52 15-37 U/L Alanine Aminotransferase 141 16-63 U/L Alkaline Phosphatase 65 46-116 U/L Total Protein 7.8 6.4-8.2 g/dL Albumin Level 4.0 3.4-5.0 g/dL Globulin 3.8 Albumin Globulin Ratio 1.1 Performing Lab: see note ML - [facility] LB LIPID PROFILE Reviewed date:05/06/2025 01:12:23 PM Interpretation: Performing Lab: Notes/Report: [facility] , Triglycerides 138 <=150 mg/dL Cholesterol 219 <=200 mg/dL HDL Cholesterol 43 40-60 mg/dL <40 mg/dl - HIGH CARDIOVASCULAR RISK > or =60 mg/dl - LOW CARDIOVASCULAR RISK LDL Cholesterol Calculated 149.0 130-159 mg/dl BORDERLINE HIGH 100-129 mg/dl NEAR OR ABOVE OPTIMAL >190 mg/dl VERY HIGH 160-189 mg/dl HIGH <100 mg/dl OPTIMAL VLDL CHOLESTEROL 27.6 Chol HDL Ratio 5.1 3.3 - 4.4 LOW RISK 7.1 - 11.0 MODERATE RISK 4.4 - 7.1 AVERAGE RISK >11.0 HIGH RISK Performing Lab: see note ML - [facility] INSULIN Reviewed date:05/07/2025 03:31:36 PM Interpretation: Performing Lab: Notes/Report: [facility] , Insulin 15.5 2.6-24.9 uIU/mL Performed at: [facility] Volunteer: Luis Ruby PhD, Phone: [phone] [address] [place], [place] [phone] Performing Lab: see note - [facility] LB GLYCOHEMOGLOBIN A1C Reviewed date:05/06/2025 01:12:23 PM Interpretation: Performing Lab: Notes/Report: [facility] , Glycohemoglobin A1C 5.7 4.5-6.2 % ACTION SUGGESTED > 7.0 ADA THERAPEUTIC TARGET < 7.0 ADA RECOMMENDED LIMIT 4.0 - 6.0 Estimated Average Glucose 117 Performing Lab: see note ML - [facility] FREE T3 Reviewed date:05/06/2025 01:12:23 PM Interpretation: Performing Lab: Notes/Report: [facility] , Free T3 2.58 2.18-3.98 pg/mL Performing Lab: see note ML - [facility] LB CBC AUTO DIFF Reviewed date:05/06/2025 01:12:23 PM Interpretation: Performing Lab: Notes/Report: [facility] , White Blood Count 5.2 4.0-11.0 10 3/uL Red Blood Count 4.61 4.70-6.10 10 6/uL Hemoglobin 14.6 14.0-18.0 g/dL Hematocrit 40.9 42.0-54.0 % Mean Corpuscular Volume 88.7 80.0-94.0 fL Mean Corpuscular Hemoglobin 31.7 25.9-34.0 pg Mean Corpuscular HGB Conc 35.7 29.9-35.2 g/dL Red Cell Distribution Width 12.3 11.0-15.0 % Platelet Count 134 150-450 10 3/uL Mean Platelet Volume 10.0 9.5-13.5 fL Neutrophils Percent Auto 73.7 43.0-75.0 % Lymphocytes Percent Auto 18.1 20.5-60.0 % Monocytes Percent Auto 6.4 1.7-12.0 % Eosinophils Percent Auto 1.2 0.9-7.0 % Basophils Percent Auto 0.2 0.2-2.0 % Immature Granulocytes Pct Auto 0.4 0.0-0.5 % Neutrophils Absolute Auto 3.8 1.4-6.5 10 3/uL Lymphocytes Absolute Auto 0.9 1.2-3.8 10 3/uL Monocytes Absolute Auto 0.3 0.3-0.8 10 3/uL Eosinophils Absolute Auto 0.1 0.0-0.7 10 3/uL Basophils Absolute Auto 0.0 0.0-0.1 10 3/uL Immature Granulocytes Abs Auto 0.02 0.00-0.03 10 3/uL Performing Lab: see note ML - [facility] LB CBC AUTO DIFF Reviewed date:07/03/2024 05:43:04 PM Interpretation: Performing Lab: Notes/Report: [facility] , White Blood Count 4.1 4.0-11.0 10 3/uL Red Blood Count 4.45 4.70-6.10 10 6/uL Hemoglobin 13.8 14.0-18.0 g/dL Hematocrit 39.5 42.0-54.0 % Mean Corpuscular Volume 88.8 80.0-94.0 fL Mean Corpuscular Hemoglobin 31.0 25.9-34.0 pg Mean Corpuscular HGB Conc 34.9 29.9-35.2 g/dL Red Cell Distribution Width 12.0 11.0-15.0 % Platelet Count 115 150-450 10 3/uL Mean Platelet Volume 10.5 9.5-13.5 fL Neutrophils Percent Auto 63.0 43.0-75.0 % Lymphocytes Percent Auto 23.7 20.5-60.0 % Monocytes Percent Auto 8.6 1.7-12.0 % Eosinophils Percent Auto 3.7 0.9-7.0 % Basophils Percent Auto 0.5 0.2-2.0 % Immature Granulocytes Pct Auto 0.5 0.0-0.5 % Neutrophils Absolute Auto 2.6 1.4-6.5 10 3/uL Lymphocytes Absolute Auto 1.0 1.2-3.8 10 3/uL Monocytes Absolute Auto 0.4 0.3-0.8 10 3/uL Eosinophils Absolute Auto 0.2 0.0-0.7 10 3/uL Basophils Absolute Auto 0.0 0.0-0.1 10 3/uL Immature Granulocytes Abs Auto 0.02 0.00-0.03 10 3/uL Performing Lab: see note ML - [facility] LB US abdomen complete Reviewed date:05/14/2025 04:06:22 PM Interpretation: Performing Lab: Notes/Report: Source Facility: [place] [address] Ultrasound Report Signed Patient: SILVINO OJEDA MR#: [id number] : 1950 Acct:[id number] Age/Sex: 75 / M ADM Date: 05/14/25 Loc: US Attending Dr: Marcella Salamanca M.D. Ordering Physician: Marcella Salamanca M.D. Date of Service: 05/14/25 Procedure(s): US abdomen complete Accession Number(s): [id number] cc: Marcella Salamanca M.D. [place] [address] Patient Name: SILVINO OJEDA MRN: [id number] date: 1950 Sex: M Assigned Patient Location: US Current Patient Location: US Accession/Order Number: [id number] Exam Date: 05/14/2025 07:02 Report Date: 05/14/2025 [...] Mistry M.D. 05/14/2025 9:39 AM Dictation Location: [place] [address] Electronically authenticated by: [id number] Y Date: 05/14/2025 09:39 Dictated By: Jamilah Mistry M.D. Signed By: 05/14/2542 DD/ TD/TT: Naval Architect Specialist: [place] [address] Ultrasound Report Signed Patient: SILVINO OJEDA MR#: [id number] : 1950 Acct:[id number] Age/Sex: 75 / M ADM Date: 05/14/25 Loc: US Attending Dr: Raul Salamanca M.D. Ordering Physician: Marcella Salamanca M.D. Date of Service: 05/14/25 Procedure(s): US abdomen complete Accession Number(s): [id number] cc: Marcella Salamanca M.D. [address] [address] Patient Name: SILVINO OJDEA MRN: [id number] date: 1950 Sex: M Assigned Patient Location: US Current Patient Location: US Accession/Order Numb er: [id number] Exam Date: 05/14/2025 07:02 Report Date: 05/14/2025 09:39 At the request of: MARCELLA SALAMANCA MD Procedure: US abdome n complete COMPLETE ABDOMINAL ULTRASOUND CLINICAL HISTORY: D6 [...] No aortic aneurysm is noted. There is n o ascites. US/US abdomen complete IMPRESSION: POSSIBLE FATTY LIVER WITH MULTIPLE CYSTS. NO GALLBLADDER PATHOLOGY. NO OBSTRUCTIVE UROPATHY. Impression dictated by: Jamilah Mistry M.D. 05/14/2025 9:39 AM Dictation Location: [place] [address] Electronically authenticated by: [id number] Y Date: 05/14/2025 09:39 Dictated By: Jamilah Mistry M.D. Signed By: 05/14/25 0942 DD/ 0939 TD/TT: Naval Architect Specialist: Reason For Referral Diagnosis 1 Anemia (D64.9) Diagnosis 2 Occult blood positiv e stool (R19.5) Referral Organization [facility] Referring Provider First Name Quinn Referring Provider Last Name Renato Referring Provider Speciality Family Med jorge Referred Provider Chirag Montaño Referred Provider Specialty General Surg yanira Referral Priority Routine Medications Medication SIG (Take, Route, Frequency, Duration) Notes Start Date End Date Status Levothyroxine Sodium 75 MCG take 1 table t by mouth every morning ON AN EMPTY STOMACH Orally Once a day for 90 days Active Ferrous Sulfate 325 (65 Fe) MG 1 tablet Orally twice daily for 30 days 05/07/2025 Active Doxazosin Mesylate 4 MG take 1 tablet by mouth once daily Orally Once a day for 90 days Active Aspirin 325 MG 2 tablet Orally Once a day Active Social History Tobacco Use: Social History Observation Description Date Details (start date - stop date) Never Smoker NA - NA Tobacco Use/Smoking Question Answer Notes Patient is a nonsmoker Alcohol Screen (Audit-C) Question Answer Notes Did you have a drink containing alcohol in the p ast year? No Points 0 Interpretation Negative AUDIT-C (Standard) Question Answer Notes Did you have a drink containing alcohol in the p ast year? 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) Active confirmed Problem Chronic ulcer of foot (607109937) Non-pressure chronic ulcer of left heel and midfoot with fat layer exposed (L97.422) Active confirmed Problem Non-pressure chronic ulcer of other part of right foot limited to breakdown of skin (L97.511) Active confirmed Problem 205482948 Other acquired deformities of right foot (M21.6X1) Active confirmed cavovarus contracture Problem 5159284976527303 Other acquired deformities of left foot (M21.6X2) Active confirmed cavovarus contracture Problem 284027740468284 Contracture, 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) Active confirmed Problem 657971254370254 Contracture, left ankle (M24.572) Active confirmed Problem 202131470027339 Contracture, left foot (M24.575) Active confirmed Problem 3412277989092732 Other instability, right ankle (M25.371) Active confirmed Problem Pain of left knee joint (finding) (066100434047119) Pain in left knee (M25.562) Active confirmed Problem Closed fracture of phalanx of foot (18207807) Nondisplaced unspecified fracture of left great toe, initial encounter for closed fracture (S92.405A) Active confirmed Problem Hypertension (99792538) HTN (hypertension) (I10) Active confirmed Problem Dyspnea on exertion (34573491) Dyspnea on exertion (R06.09) Active confirmed Problem Anemia (371503062) Anemia (D64.9) Active confir med Problem 550563948 Neuropathy (G62.9) Active confirmed Problem Tinnitus (28467759) Tinnitus (H93.19) Active confirmed Problem Edema (484341754) Edema leg (R60.0) Active confirmed Problem Hemorrhoids (36650592) Hemorrhoids (K64.9) Active confirmed Problem Abnormal feces (391607905) Occult blood positive stool (R19.5) Active confirmed Problem Overweight (911899887) Over weight (E66.3) Active confirmed Problem Ganglion cyst (53974849) Ganglion cyst (M67.40) Active confirmed Problem Erectile dysfunction (disorder) (731360002) Impotence (N52.9) Active confirmed Problem 8479286083174318 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 Problem 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 Problem Leukocytosis (840838712) Elevated white blood cell count (D72.829) Active confirmed Problem Essential hypertension (30280485) Essential (primary) hypertension (I10) Active confirmed Problem Sexual dysfunction (94576464) Sexual dysfunction (R37) Active confirmed Problem Inguinal hernia (disorder) (895836391) Hernia, inguinal (K40.90) Active confirmed Problem 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 Problem Xanthelasma (79426832) Xanthelasma (H02.60) Active confirmed Problem 849829734 Hammertoe of right foot (M20.41) Active confirmed Problem 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 Problem Decreased testosterone level (638447475) Decreased testosterone level (R79.89) Active confirmed Problem Decubitus ulcer of left foot, stage 1 (L89.891) Active confirmed Problem Chronic ulcer of right heel (disorder) (17450822864373267 ) Chronic ulcer of right heel limited to breakdown of skin (L97.411) Active confirmed Problem 808190575 Ulcer of right foot with necrosis of muscle (L97.513) Active confirmed Vital Signs Blood pressure diastolic 86 mm Hg 05/06/2025 Height 70 in 05/06/2025 Blood pressure systolic 144 mm Hg 05/06/2025 Weight 244.8 lbs 05/06/2025 BMI 35.12 kg/m2 05/06/2025 Procedures Procedure Date Ordered Date Performed Result Body Sit e Cerumen Removal - performed 05/06/2025 N/A Encounters Encounter Location Date Provider Diagnosis [facility] [address] [place] [address] 05/06/2025 Quinn Hoy Anemia D64.9 and Elevated liver enzymes R74.8 [facility] [address] [place] [address] 05/06/2025 Quinn Hoy Anemia D64.9 and Occ ult blood positive stool R19.5 [place] [address] [place] [address] 05/07/2025 Quinn Hoy [facility] [address] [place] [address] 05/14/2025 Quinn Hoy [facility] [address] [place] [address] 08/13/2024 Quinn Hoy Dyspnea on exertion R06.09 [place] [address] [place] [address] 02/04/2025 Quinn Hoy Dyspnea on exertion R06.09 [place] [address] [place] [address] 05/06/2025 Quinn Hoy Decreased testostero ne level R79.89 ; Essential (primary) hypertension I10 ; Neuropathy G62.9 ; Cerumen impaction H61.20 and Bilateral impacted cerumen H61.23 Assessments Encounter Date Diagnosis (ICD Code) Assessment Notes Treatment Notes Treatment Clinical Notes Section Notes 08/13/2024 Dyspnea on exertion (ICD-10 - R06.09) 02/04/2025 Dyspnea on exertion (ICD-10 - R06.09) 05/06/2025 Anemia (ICD-10 - D64.9) 05/06/2025 Elevated liver enzymes (ICD-10 - R74.8) 05/06/2025 Anemia (ICD-10 - D64.9) 05/06/2025 Decreased testosterone level (ICD-10 - R79.89) checking level 05/06/2025 Essential (primary) hypertension (ICD-10 - I10) not bad today - didnt cristian meds 05/06/2025 Neuropathy (ICD-10 - G62.9) stabel no complaints 05/06/2025 Occult blood positive stool (ICD-10 - R19.5) 05/06/2025 Cerumen impaction (ICD-10 - H61.20) 05/06/2025 Bilateral impacted cerumen (ICD-10 - H61.23) Plan Of Treatment Pending Test Test Name Order Date CMP (COMPLETE METABOLIC PANEL) HEMOGLOBIN A1C (GLYCO) 04/20/2024 HEMOGLOBIN A1C (GLYCO) 05/06/2025 INSULIN, TOTAL 05/06/2025 LIPID PANEL (CHOL/TRIG/HDL/LDL) 05/06/20 25 LIPID PANEL (CHOL/TRIG/HDL/LDL) 04/20/20 24 CBC WITH DIFF 04/20/2024 URIC ACID 05/06/2025 XR Ankle LT (3 views) * (164) 05/02/2024 XR Ankle RT (3 views) * (161) 05/02/2024 XR Foot LT (3 views) * 05/02/2024 XR Foot RT (3 views) * 05/02/2024 Cerumen Removal - performed 05/06/2025 T3 FREE, T4 FREE and TSH 04/20/2023 CBC W/AUTO DIFF 05/06/2025 PSA, TOTAL 04/20/2024 STOOL OCCULT BLOOD 04/20/2024 STOOL OCCULT BLOOD 05/06/2025 XR Hand 3 Views Right 05/03/2024 CBC AUTO DIFF 05/14/2024 CBC AUTO DIFF 05/01/2024 TESTOSTERONE, TOTAL 05/06/2025 THYROID PROFILE WITH TSH 05/25/2023 THYROID PANEL (T4/TSH/FREE T3) 5 THYROID PANEL (T4/TSH/FREE T3) 4 PSA, SCREENING 05/06/2025 CMP (COMP MET TORRES) w/eGFR CKD-EPI 2024 CBC WITH DIFF 05/06/2025 Next Appt Details Provider Name:Quinn Salamanca, 09:15:00 AM, [address] [place], [address], Insurance Providers Payer Name Payer Address Payer Phone Subscriber Number Group Number Insured Name Patient Relationship to Insured Coverage Start Date Coverage End Date MEDICARE [place] [address] [phone] [id number] Silvino Ojeda Self - patient is the insured 7 [facility] [address] [place] [phone] [id number] Silvino Ojeda Self - patient is the insured 7 Medical (General) History Medical History History ICD Code hypertension hyperlipidemia neuropathy Dsskvzl-Hjeqf-Uyxuh atrophy Cavus deformity of bilateral feet bilateral foot pain Non-pressure chronic ulcer o f other part of right foot limited to breakdown of skin L97.511 Dyspnea on exertion R06.09 Edema leg R60.0 Over weight E66.3 Impotence N52.9 Pain in left knee M25.562 Decreased testosterone level R79.89 Nondisplaced unspecified fra cture of left great toe, initial encounter for closed fracture S92.405A Tinea cruris B35.6 Lipoma of spermatic cord D17.6 Hernia, inguinal K40.90 Tinnitus H93.19 Sexual dysfunction R37 Hemorrhoids K64.9 Xanthelasma H02.60 Surgical History Surgery Date(Month/Year) Hernia Repair Foot Surgery- Dr. Schneider 01/2023
--- OUTSIDE RECORDS SUMMARY | 2025-05-24 06:44 | XMS_ITS | CCD ---
Author Organization [facility] Care Team Providers Care Supervisor [employer] Name Role Phone CHEIKH ., DR NARANJO [...] Other snf (current) drug therapy; Translations: [OTH [employer] SPECIALIST CURRENT DRUG THERAPY] Onset: 02-16-2023 Episodic Other [...] Test Name Value Interpretation Reference Range Facility [facility] 04-27-2024 L Specimen: [id number] Received: 04/30/24 Status: CASS Moore Num: [id number] Spec Type: Impression Subm Dr: Marcella Gross MD Tissues: PATHPER Procedures: PATHREVIEW Age/ Patient Sex Location Account Attending Physician Silvino Ojeda 74/M LABELL [id number] Marcella Gross MD SPEC NUM: [id number] RECD: 04/30/24 STATUS: CASS MOORE NUM: [id number] KAREN: 04/27/[address]: Marcella Gross MD ENTERED: 04/30/[address] [facility] DR: SPEC TYPE: Impression DEPT: ALEXSANDRA Cervantes ENTERED BY: [id number] RECV BY: [id number] ORDERED: PATHREVIEW ORDERED: PATHREVIEW Pathologist Review Abnormal [...] shifted granulocytes, or granulocytic dysplasia observed CPT: 10054 -------- -------- Specimen: [id number] Received: 04/30/24 Status: CASS Moore Num: [id number] Spec Type: Impression Subm Dr: Marcella Gross MD Tissues: PATHPER Procedures: PATHREVIEW -------- Patient: Silvino Ojeda [id number] (Continued) -------- Signed (signature on file) Celia Irving MD 04/30/241945 Normal [facility] CULTURE OTHERon 02-11-2023 CULTURE [...] F Trimethoprim/Sulfamet hoxazole <=10 S F Normal [facility] Comment on above: Performed By: #### L IPID, T4, TSH, FT3, CMP #### [facility] [address] [address] [address] Maggy Irving FUNGAL CULTUREon 02-09-2023 Fungus Stain Final report Normal [facility] Comment on above: Performed By: #### L IPID, T4, TSH, FT3, CMP #### [facility] [address] [address] [address] Maggy Irving Result 1 Comment Normal [facility] Comment on above: Result Comment: SUDHIR/ Calcofluor preparation: no fungus observed. Performed By: #### L IPID, T4, TSH, FT3, CMP #### [facility] [address] [place] [address] Dr. Maggy Irving ACID FAST SMEAR AND CXon Acid Fast Smear Negative Normal [facility] Comment on above: Performed By: #### A FB #### [facility] [address] [place] [address] Dr. Maggy Irving [employer] Specimen Processing Tissue Grinding [facility] Comment on above: Performed By: #### A FB #### [facility] [address] [place] [address] Dr. Maggy Irving CULTURE ANAEROBICon 02-08-20 CULTURE ANAEROBIC Isolate 1 Finegoldia magna Light growth of Normal [facility] Comment on above: Result Comment: EVID ENCE BASED PRACTICE BY [facility] HAS DEMONSTRATED THAT FINEGOLDIA SPECIES ARE ROUTINELY SUSCEPTIBLE TO PIPERACILLIN-TAZOBACTAM, CEFOXITIN, ERTAPENEM, IMIPENEM METRONIDAZOLE AND VARIABLY RESISTANT TO CLINDAMYCIN. Performed By: #### L IPID, T4, TSH, FT3, CMP #### [facility] [address] [place] [address] Dr. Maggy Irving GRAM STAINon 02-07-2023 COMMENTS NO ORGANISMS OBSERVED [facility] Comment on above: Performed By: #### G STAIN #### [facility] [address] [place] [address] Dr. Maggy Irving DIPHTHEROIDS Normal [facility] Comment on above: Performed By: #### G STAIN #### [facility] [address] [address] [address] Maggy Irving EPITHELIALS Normal [facility] Comment on above: Performed By: #### G STAIN #### [facility] [address] [address] [address] Maggy Irving FUNGAL ELEMENTS Normal [facility] Comment on above: Performed By: #### G STAIN #### [facility] [address] [address] [address] Maggy Ivring GRAM NEG BACILLI Normal [facility] Comment on above: Performed By: #### G STAIN #### [facility] [address] [address] [address] Maggy MENDOZA NEG DIPPLOCOCCI Normal [facility] Comment on above: Performed By: #### G STAIN #### [facility] [address] [address] [address] Maggy Irving GRAM POS BACILLI Normal [facility] Comment on above: Performed By: #### G STAIN #### [facility] [address] [address] [address] Maggy Irving GRAM POSITIVE COCCI Normal [facility] Comment on above: Performed By: #### G STAIN #### [facility] [address] [address] [address] Maggy Irving GRAM STAIN SOURCE 5th Metatarsal Bone Normal [facility] Comment on above: Performed By: #### G STAIN #### [facility] [address] [address] [address] Maggy Irving GS_DIPTH [facility] Comment on above: Performed By: #### G STAIN #### [facility] [address] [address] [address] Maggy Irving WBC RARE Normal [facility] Comment on above: Performed By: #### G STAIN #### [facility] [address] [address] [address] Maggy Irving POINT OF CARE GLUCOSEon 05-2 Glucose [Mass/Vol] 114 mg/dL Critically high 74-106 T [facility] Comment on above: Performed By: #### P OCGLUC #### [facility] [address] [place] [address] Dr. Maggy Irving Glucose [Mass/Vol] 122 mg/dL Critically high 74-106 T [facility] Comment on above: Performed By: #### P OCGLUC #### [facility] [address] [place] [address] Dr. Maggy Irving PROF CHEM 8 (BAS METB)on Anion gap [Moles/Vol] 12.0 mmol/L Normal [facility] Comment on above: Performed By: #### L IPID, T4, TSH, FT3, CMP #### [facility] [address] [place] [address] Dr. Maggy Irving Calcium [Mass/Vol] 8.7 mg/dL Normal 8.5-10.1 [facility] Comment on above: Performed By: #### L IPID, T4, TSH, FT3, CMP #### [facility] [address] [place] [address] Dr. Maggy Irving Chloride [Moles/Vol] 104 mmol/L Normal 98-107 [facility] Comment on above: Performed By: #### L IPID, T4, TSH, FT3, CMP #### [facility] [address] [place] [address] Dr. Maggy Irving CO2 [Moles/Vol] 28.1 mmol/L Normal 21.0-32.0 [facility] Comment on above: Performed By: #### L IPID, T4, TSH, FT3, CMP #### [facility] [address] [place] [address] Dr. Maggy Irving Creatinine [Mass/Vol] 0.80 mg/dL Normal 0.70-1.30 [facility] Comment on above: Performed By: #### L IPID, T4, TSH, FT3, CMP #### [facility] [address] [place] [address] Dr. Maggy Irving EGFR-AF ICELANDIC >60 Normal >=60 [facility] Comment on above: Performed By: #### L IPID, T4, TSH, FT3, CMP #### [facility] [address] [address] [address] Maggy Irving EGFR-NON AF ICELANDIC >60 Normal >=60 [facility] Comment on above: Performed By: #### L IPID, T4, TSH, FT3, CMP #### [facility] [address] [place] [address] Dr. Maggy Irving Glucose [Mass/Vol] 129 mg/dL Critically high 74-106 T [facility] Comment on above: Performed By: #### L IPID, T4, TSH, FT3, CMP #### [facility] [address] [address] [address] Maggy Irving Potassium [Moles/Vol] 4.1 mmol/L Normal 3.5-5.1 [facility] Comment on above: Performed By: #### L IPID, T4, TSH, FT3, CMP #### [facility] [address] [place] [address] Dr. Maggy Irving Sodium [Moles/Vol] 140 mmol/L Normal 136-145 [facility] Comment on above: Performed By: #### L IPID, T4, TSH, FT3, CMP #### [facility] [address] [address] [address] Maggy Irving Urea nitrogen [Mass/Vol] 20.0 mg/dL Critically high 7.0-18.0 [facility] Comment on above: Performed By: #### L IPID, T4, TSH, FT3, CMP #### [facility] [address] [place] [address] Dr. Maggy Irving Urea nitrogen/Creatinine [Mass ratio] 25.0 mg/mg Normal [facility] Comment on above: Performed By: #### L IPID, T4, TSH, FT3, CMP #### [facility] [address] [place] [address] Dr. Maggy Irving FREE T3on 01-07-2023 FREE T3 3.24 pg/mlL Normal 2.18-3.98 [facility] Comment on above: Performed By: #### L IPID, T4, TSH, FT3, CMP #### [facility] [address] [address] [address] Maggy Irving T4on 01-07-2023 T4 [Mass/Vol] 9.10 ug/dL Normal 4.50-12.10 [facility] Comment on above: Performed By: #### L IPID, T4, TSH, FT3, CMP #### [facility] [address] [address] [address] Maggy Irving TSHon 01-07-2023 TSH 5.957 uIU/mL Critically high 0.358-3.740 [facility] Comment on above: Performed By: #### L IPID, T4, TSH, FT3, CMP #### [facility] [address] [address] [address] Maggy Irving NM STRESS/REST MULTIon 01-03 NM STRESS/REST MULTI Patient: SILVINO OJEDA Exam Date: 01/03/2023 : 1950 Gender:M Ordering : DR MARCELLA GROSS . Admission #: [id number] Family : Order #: [id number] CLICK HERE TO VIEW EXAM RADIOLOGY REPORT [...] Khanna M.D. on 01/04/2023 at 07:45 Normal [facility] ECHOCARDIO M/2D COMPLETEon 0 12-21-2022 ECHOCARDIO M/2D COMPLETE Patient: SILVINO OJEDA Exam Date: 12/21/2022 : 1950 Gender:M Ordering : DR MARCELLA GROSS . Admission #: [id number] Family : Order #: [id number] CLICK HERE TO VIEW EXAM ECHOCARDIOGRAM REPORT [...] 12/23/2022 at 18:05 Normal [facility] BNPon 12-07-2022 Natriuretic peptide B (Bld) [Mass/Vol] 37.0 pg/mL Normal <=900.0 [facility] Comment on above: Performed By: #### L IPID, T4, TSH, FT3, CMP #### [facility] [address] [place] [address] Dr. Maggy Irving CBC AUTO DIFFon 12-07-2022 BASO # 0.0 103/ul Normal 0.0-0.1 [facility] Comment on above: Performed By: #### L IPID, T4, TSH, FT3, CMP #### [facility] [address] [place] [address] Dr. Maggy Irving Basophils/100 WBC (Bld) 0.2 % Normal 0.2-2.0 [facility] Comment on above: Performed By: #### L IPID, T4, TSH, FT3, CMP #### [facility] [address] [place] [address] Dr. Maggy Irving EO # 0.2 103/ul Normal 0.0-0.7 [facility] Comment on above: Performed By: #### L IPID, T4, TSH, FT3, CMP #### [facility] [address] [place] [address] Dr. Maggy Irving Eosinophils/100 WBC (Bld) 3.7 % Normal 0.9-7.0 [facility] Comment on above: Performed By: #### L IPID, T4, TSH, FT3, CMP #### [facility] [address] [place] [address] Dr. Maggy Irving Erythrocyte distribution width (RBC) [Ratio] 11.9 % Normal 11.0-15.0 [facility] Comment on above: Performed By: #### L IPID, T4, TSH, FT3, CMP #### [facility] [address] [place] [address] Dr. Maggy Irving Hematocrit (Bld) [Volume fraction] 39.7 % Critically low 42.0-54.0 [facility] Comment on above: Performed By: #### L IPID, T4, TSH, FT3, CMP #### [facility] [address] [place] [address] Dr. Maggy Irving Hemoglobin (Bld) [Mass/Vol] 14.0 g/dL Normal 14.0-18.0 [facility] Comment on above: Performed By: #### L IPID, T4, TSH, FT3, CMP #### [facility] [address] [place] [address] Dr. Maggy Irving IG # 0.02 10e3/ul Normal 0.00-0.03 [facility] Comment on above: Performed By: #### L IPID, T4, TSH, FT3, CMP #### [facility] [address] [place] [address] Dr. Maggy Irving IG % 0.5 % Normal 0.0-0.5 [facility] Comment on above: Performed By: #### L IPID, T4, TSH, FT3, CMP #### [facility] [address] [place] [address] Dr. Maggy Irving LYMPH # 0.9 103/ul Critically low 1.2-3.8 [facility] Comment on above: Performed By: #### L IPID, T4, TSH, FT3, CMP #### [facility] [address] [place] [address] Dr. Maggy Irving Lymphocytes/100 WBC (Bld) 21.1 % Normal 20.5-60.0 [facility] Comment on above: Performed By: #### L IPID, T4, TSH, FT3, CMP #### [facility] [address] [place] [address] Dr. Maggy Irving MANUAL DIFF REQ NO Normal [facility] Comment on above: Performed By: #### L IPID, T4, TSH, FT3, CMP #### [facility] [address] [place] [address] Dr. Maggy Irving MCH (RBC) [Entitic mass] 30.5 pg Normal 25.9-34.0 [facility] Comment on above: Performed By: #### L IPID, T4, TSH, FT3, CMP #### [facility] [address] [place] [address] Dr. Maggy Irving MCHC (RBC) [Mass/Vol] 35.3 g/dL Critically high 29.9-35.2 [facility] Comment on above: Performed By: #### L IPID, T4, TSH, FT3, CMP #### [facility] [address] [place] [address] Dr. Maggy Irving MCV (RBC) [Entitic vol] 86.5 fL Normal 80.0-94.0 [facility] Comment on above: Performed By: #### L IPID, T4, TSH, FT3, CMP #### [facility] [address] [place] [address] Dr. Maggy Irving MONO # 0.4 103/ul Normal 0.3-0.8 [facility] Comment on above: Performed By: #### L IPID, T4, TSH, FT3, CMP #### [facility] [address] [place] [address] Dr. Maggy Irving Monocytes/100 WBC (Bld) 8.7 % Normal 1.7-12.0 [facility] Comment on above: Performed By: #### L IPID, T4, TSH, FT3, CMP #### [facility] [address] [place] [address] Dr. Maggy Irving NEUT # 2.9 103/ul Normal 1.4-6.5 [facility] Comment on above: Performed By: #### L IPID, T4, TSH, FT3, CMP #### [facility] [address] [place] [address] Dr. Maggy Irving Neutrophils/100 WBC (Bld) 65.8 % Normal 43.0-75.0 [facility] Comment on above: Performed By: #### L IPID, T4, TSH, FT3, CMP #### [facility] [address] [place] [address] Dr. Maggy Irving Platelet mean volume (Bld) [Entitic vol] 9.9 fL Normal 9.5-13.5 [facility] Comment on above: Performed By: #### L IPID, T4, TSH, FT3, CMP #### [facility] [address] [address] [address] Maggy Irving PLT 128 103/ul Critically low 150-450 [facility] Comment on above: Performed By: #### L IPID, T4, TSH, FT3, CMP #### [facility] [address] [address] [address] Maggy Irving RBC 4.59 106/ul Critically low 4.70-6.10 [facility] Comment on above: Performed By: #### L IPID, T4, TSH, FT3, CMP #### [facility] [address] [place] [address] Dr. Maggy Irving WBC 4.4 103/ul Normal 4.0-11.0 [facility] Comment on above: Performed By: #### L IPID, T4, TSH, FT3, CMP #### [facility] [address] [place] [address] Dr. Maggy Irving FREE THYROXINE INDEX T7on FTI 2.72 Normal 1.30-4.50 [facility] Comment on above: Performed By: #### L IPID, T4, TSH, FT3, CMP #### [facility] [address] [place] [address] Dr. Maggy Irving T3U 34.0 % Normal 33.0-40.0 [facility] Comment on above: Performed By: #### L IPID, T4, TSH, FT3, CMP #### [facility] [address] [place] [address] Dr. Maggy Irving T4 [Mass/Vol] 8.00 ug/dL Normal 4.50-12.10 [facility] Comment on above: Performed By: #### L IPID, T4, TSH, FT3, CMP #### [facility] [address] [place] [address] Dr. Maggy Irving IRONon 12-07-2022 Iron [Mass/Vol] 134.0 ug/dL Normal 65.0-175.0 [facility] Comment on above: Performed By: #### L IPID, T4, TSH, FT3, CMP #### [facility] [address] [address] [address] Maggy Irving LIPID PROFILEon 12-07-2022 CHOL-HDL RATIO NORM SEE BELOW Normal [facility] Comment on above: Result Comment: 3.3 - 4.4 LOW RISK 4.4 - 7.1 AVERAGE RISK 7.1 - 11.0 MODERATE RISK >11.0 HIGH RISK Performed By: #### L IPID, T4, TSH, FT3, CMP #### [facility] [address] [address] [address] Maggy Irving Cholesterol [Mass/Vol] 180 mg/dL Normal <=200 [facility] Comment on above: Performed By: #### L IPID, T4, TSH, FT3, CMP #### [facility] [address] [place] [address] Dr. Maggy Irving Cholesterol in HDL [Mass/Vol] 37 mg/dL Critically low 40-60 [facility] Comment on above: Performed By: #### L IPID, T4, TSH, FT3, CMP #### [facility] [address] [place] [address] Dr. Maggy Irving Cholesterol in LDL [Mass/Vol] 95.2 mg/dL Normal [facility] Comment on above: Performed By: #### L IPID, T4, TSH, FT3, CMP #### [facility] [address] [place] [address] Dr. Maggy Irving Cholesterol.total/Ch olesterol in HDL [Mass ratio] 4.9 {ratio} Normal [facility] Comment on above: Performed By: #### L IPID, T4, TSH, FT3, CMP #### [facility] [address] [place] [address] Dr. Maggy Irving HDL NORMAL > or = 60 mg/dl - LO W CARDIOVASCULAR RISK <40 mg/dl - HIGH CARDIOVASCULAR RISK Normal [facility] Comment on above: Performed By: #### L IPID, T4, TSH, FT3, CMP #### [facility] [address] [address] [address] Maggy Irving LDL CALC NORMAL SEE BELOW Normal [facility] Comment on above: Result Comment: <100 mg/dl OPTIMAL 100 - 129 mg/dl NEAR OR ABOVE OPTIMAL 130 - 159 mg/dl BORDERLINE HIGH 160 - 189 mg/dl HIGH >190 mg/dl VERY HIGH Performed By: #### L IPID, T4, TSH, FT3, CMP #### [facility] [address] [address] [address] Maggy Irving Triglyceride [Mass/Vol] 239 mg/dL Critically high <=150 [facility] Comment on above: Performed By: #### L IPID, T4, TSH, FT3, CMP #### [facility] [address] [place] [address] Dr. Maggy Irving VLDL CALC 47.8 mg/dL Normal [facility] Comment on above: Performed By: #### L IPID, T4, TSH, FT3, CMP #### [facility] [address] [place] [address] Dr. Maggy Irving PROF 14(COMP METB)on 023 Albumin [Mass/Vol] 3.8 g/dL Normal 3.4-5.0 [facility] Comment on above: Performed By: #### L IPID, T4, TSH, FT3, CMP #### [facility] [address] [place] [address] Dr. Maggy Irving Albumin/Globulin [Mass ratio] 1.1 {ratio} Normal [facility] Comment on above: Performed By: #### L IPID, T4, TSH, FT3, CMP #### [facility] [address] [address] [address] Maggy Irving ALP [Catalytic activity/Vol] 53 U/L Normal 46-116 [facility] Comment on above: Performed By: #### L IPID, T4, TSH, FT3, CMP #### [facility] [address] [address] [address] Maggy Irving ALT [Catalytic activity/Vol] 43 U/L Normal 16-63 [facility] Comment on above: Performed By: #### L IPID, T4, TSH, FT3, CMP #### [facility] [address] [address] [address] Maggy Irving Anion gap [Moles/Vol] 12.2 mmol/L Normal [facility] Comment on above: Performed By: #### L IPID, T4, TSH, FT3, CMP #### [facility] [address] [place] [address] Dr. Maggy Irving AST [Catalytic activity/Vol] 22 U/L Normal 15-37 [facility] Comment on above: Performed By: #### L IPID, T4, TSH, FT3, CMP #### [facility] [address] [place] [address] Dr. Maggy Irving Bilirubin [Mass/Vol] 0.6 mg/dL Normal 0.2-1.0 [facility] Comment on above: Performed By: #### L IPID, T4, TSH, FT3, CMP #### [facility] [address] [place] [address] Dr. Maggy Irving Calcium [Mass/Vol] 8.9 mg/dL Normal 8.5-10.1 [facility] Comment on above: Performed By: #### L IPID, T4, TSH, FT3, CMP #### [facility] [address] [place] [address] Dr. Maggy Irving Chloride [Moles/Vol] 104 mmol/L Normal 98-107 [facility] Comment on above: Performed By: #### L IPID, T4, TSH, FT3, CMP #### [facility] [address] [place] [address] Dr. Maggy Irving CO2 [Moles/Vol] 28.8 mmol/L Normal 21.0-32.0 [facility] Comment on above: Performed By: #### L IPID, T4, TSH, FT3, CMP #### [facility] [address] [place] [address] Dr. Maggy Irving Creatinine [Mass/Vol] 0.83 mg/dL Normal 0.70-1.30 [facility] Comment on above: Performed By: #### L IPID, T4, TSH, FT3, CMP #### [facility] [address] [address] [address] Maggy Irving EGFR-AF ICELANDIC >60 Normal >=60 [facility] Comment on above: Performed By: #### L IPID, T4, TSH, FT3, CMP #### [facility] [address] [address] [address] Maggy Irving EGFR-NON AF ICELANDIC >60 Normal >=60 [facility] Comment on above: Performed By: #### L IPID, T4, TSH, FT3, CMP #### [facility] [address] [place] [address] Dr. Maggy Irving Globulin (S) [Mass/Vol] 3.4 g/dL Normal [facility] Comment on above: Performed By: #### L IPID, T4, TSH, FT3, CMP #### [facility] [address] [address] [address] Maggy Irving Glucose [Mass/Vol] 116 mg/dL Critically high 74-106 T [facility] Comment on above: Performed By: #### L IPID, T4, TSH, FT3, CMP #### [facility] [address] [address] [address] Maggy Irving Potassium [Moles/Vol] 4.0 mmol/L Normal 3.5-5.1 [facility] Comment on above: Performed By: #### L IPID, T4, TSH, FT3, CMP #### [facility] [address] [place] [address] Dr. Maggy Irving Protein [Mass/Vol] 7.2 g/dL Normal 6.4-8.[address] [facility] Comment on above: Performed By: #### L IPID, T4, TSH, FT3, CMP #### [facility] [address] [place] [address] Dr. Maggy Irving Sodium [Moles/Vol] 141 mmol/L Normal 136-145 [facility] Comment on above: Performed By: #### L IPID, T4, TSH, FT3, CMP #### [facility] [address] [place] [address] Dr. Maggy Irving Urea nitrogen [Mass/Vol] 17.0 mg/dL Normal 7.0-18.0 [facility] Comment on above: Performed By: #### L IPID, T4, TSH, FT3, CMP #### [facility] [address] [address] [address] Maggy Irving Urea nitrogen/Creatinine [Mass ratio] 20.5 mg/mg Normal [facility] Comment on above: Performed By: #### L IPID, T4, TSH, FT3, CMP #### [facility] [address] [address] [address] Maggy Irving TSHon 12-07-2022 TSH 5.531 uIU/mL Critically high 0.358-3.740 [facility] Comment on above: Performed By: #### L IPID, T4, TSH, FT3, CMP #### [facility] [address] [place] [address] Dr. Maggy Irving TESTOSTERONE, TOTALon 2021 Testosterone [Mass/Vol] 390 ng/dL Normal 264-916 [facility] Comment on above: Result Comment: Adul t male reference interval is based on a population of healthy nonobese males (BMI <30) between 19 and 39 years old. Reynaldo et.al. JCEM 2017,102;[id number]. PMID: [id number]. Performed By: #### L IPID, T4, TSH, FT3, CMP #### [facility] [address] [place] [address] Dr. Maggy Irving CBC AUTO DIFFon 04-09-2022 BASO # 0.0 103/ul Normal 0.0-0.1 [facility] Comment on above: Performed By: #### L IPID, T4, TSH, FT3, CMP #### [facility] [address] [place] [address] Dr. Maggy Irving Basophils/100 WBC (Bld) 0.2 % Normal 0.2-2.0 [facility] Comment on above: Performed By: #### L IPID, T4, TSH, FT3, CMP #### [facility] [address] [place] [address] Dr. Maggy Irving EO # 0.2 103/ul Normal 0.0-0.7 [facility] Comment on above: Performed By: #### L IPID, T4, TSH, FT3, CMP #### [facility] [address] [place] [address] Dr. Maggy Irving Eosinophils/100 WBC (Bld) 3.1 % Normal 0.9-7.0 [facility] Comment on above: Performed By: #### L IPID, T4, TSH, FT3, CMP #### [facility] [address] [place] [address] Dr. Maggy Irving Erythrocyte distribution width (RBC) [Ratio] 12.3 % Normal 11.0-15.0 [facility] Comment on above: Performed By: #### L IPID, T4, TSH, FT3, CMP #### [facility] [address] [place] [address] Dr. Maggy Irving Hematocrit (Bld) [Volume fraction] 41.6 % Critically low 42.0-54.0 [facility] Comment on above: Performed By: #### L IPID, T4, TSH, FT3, CMP #### [facility] [address] [place] [address] Dr. Maggy Irving Hemoglobin (Bld) [Mass/Vol] 14.6 g/dL Normal 14.0-18.0 [facility] Comment on above: Performed By: #### L IPID, T4, TSH, FT3, CMP #### [facility] [address] [place] [address] Dr. Maggy Irving IG # 0.02 10e3/ul Normal 0.00-0.03 [facility] Comment on above: Performed By: #### L IPID, T4, TSH, FT3, CMP #### [facility] [address] [place] [address] Dr. Maggy Irving IG % 0.4 % Normal 0.0-0.5 [facility] Comment on above: Performed By: #### L IPID, T4, TSH, FT3, CMP #### [facility] [address] [place] [address] Dr. Maggy Irving LYMPH # 0.9 103/ul Critically low 1.2-3.8 [facility] Comment on above: Performed By: #### L IPID, T4, TSH, FT3, CMP #### [facility] [address] [place] [address] Dr. Maggy Irving Lymphocytes/100 WBC (Bld) 17.9 % Critically low 20.5-60.0 [facility] Comment on above: Performed By: #### L IPID, T4, TSH, FT3, CMP #### [facility] [address] [place] [address] Dr. Maggy Irving MANUAL DIFF REQ NO Normal [facility] Comment on above: Performed By: #### L IPID, T4, TSH, FT3, CMP #### [facility] [address] [place] [address] Dr. Maggy Irving MCH (RBC) [Entitic mass] 31.1 pg Normal 25.9-34.0 [facility] Comment on above: Performed By: #### L IPID, T4, TSH, FT3, CMP #### [facility] [address] [place] [address] Dr. Maggy Irving MCHC (RBC) [Mass/Vol] 35.1 g/dL Normal 29.9-35.2 [facility] Comment on above: Performed By: #### L IPID, T4, TSH, FT3, CMP #### [facility] [address] [place] [address] Dr. Maggy Irving MCV (RBC) [Entitic vol] 88.5 fL Normal 80.0-94.0 [facility] Comment on above: Performed By: #### L IPID, T4, TSH, FT3, CMP #### [facility] [address] [place] [address] Dr. Maggy Irving MONO # 0.4 103/ul Normal 0.3-0.8 [facility] Comment on above: Performed By: #### L IPID, T4, TSH, FT3, CMP #### [facility] [address] [address] [address] Maggy Irving Monocytes/100 WBC (Bld) 8.7 % Normal 1.7-12.0 [facility] Comment on above: Performed By: #### L IPID, T4, TSH, FT3, CMP #### [facility] [address] [place] [address] Dr. Maggy Irving NEUT # 3.4 103/ul Normal 1.4-6.5 [facility] Comment on above: Performed By: #### L IPID, T4, TSH, FT3, CMP #### [facility] [address] [place] [address] Dr. Maggy Irving Neutrophils/100 WBC (Bld) 69.7 % Normal 43.0-75.0 [facility] Comment on above: Performed By: #### L IPID, T4, TSH, FT3, CMP #### [facility] [address] [place] [address] Dr. Maggy Irving Platelet mean volume (Bld) [Entitic vol] 9.9 fL Normal 9.5-13.5 [facility] Comment on above: Performed By: #### L IPID, T4, TSH, FT3, CMP #### [facility] [address] [place] [address] Dr. Maggy Irving PLT 121 103/ul Critically low 150-450 [facility] Comment on above: Performed By: #### L IPID, T4, TSH, FT3, CMP #### [facility] [address] [place] [address] Dr. Maggy Irving RBC 4.70 106/ul Normal 4.70-6.10 [facility] Comment on above: Performed By: #### L IPID, T4, TSH, FT3, CMP #### [facility] [address] [place] [address] Dr. Maggy Irving WBC 4.8 103/ul Normal 4.0-11.0 [facility] Comment on above: Performed By: #### L IPID, T4, TSH, FT3, CMP #### [facility] [address] [place] [address] Dr. Maggy Irving FREE T3on 04-09-2022 FREE T3 3.15 pg/mlL Normal 2.18-3.98 [facility] Comment on above: Performed By: #### L IPID, T4, TSH, FT3, CMP #### [facility] [address] [place] [address] Dr. Maggy Irving GLYCOHEMOGLOBIN A1Con 2021 ADA RECOMMENDATION SEE BELOW Normal [facility] Comment on above: Result Comment: ADA RECOMMENDED LIMIT 4.0 - 6.0 ADA THERAPEUTIC TARGET < 7.0 ACTION SUGGESTED > 7.0 Performed By: #### L IPID, T4, TSH, FT3, CMP #### [facility] [address] [place] [address] Dr. Maggy Irving Glucose [Mass/Vol] 123 mg/dL Normal [facility] Comment on above: Performed By: #### L IPID, T4, TSH, FT3, CMP #### [facility] [address] [place] [address] Dr. Maggy Irving HbA1c (Bld) [Mass fraction] 5.9 % Normal 4.5-6.2 [facility] Comment on above: Performed By: #### L IPID, T4, TSH, FT3, CMP #### [facility] [address] [place] [address] Dr. Maggy Irving LIPID PROFILEon 04-09-2022 CHOL-HDL RATIO NORM SEE BELOW Normal [facility] Comment on above: Result Comment: 3.3 - 4.4 LOW RISK 4.4 - 7.1 AVERAGE RISK 7.1 - 11.0 MODERATE RISK >11.0 HIGH RISK Performed By: #### L IPID, T4, TSH, FT3, CMP #### [facility] [address] [place] [address] Dr. Maggy Irving Cholesterol [Mass/Vol] 174 mg/dL Normal <=200 [facility] Comment on above: Performed By: #### L IPID, T4, TSH, FT3, CMP #### [facility] [address] [address] [address] Maggy Irving Cholesterol in HDL [Mass/Vol] 36 mg/dL Critically low 40-60 [facility] Comment on above: Performed By: #### L IPID, T4, TSH, FT3, CMP #### [facility] [address] [address] [address] Maggy Irving Cholesterol in LDL [Mass/Vol] 114.4 mg/dL Normal [facility] Comment on above: Performed By: #### L IPID, T4, TSH, FT3, CMP #### [facility] [address] [address] [address] Maggy Irving Cholesterol.total/Ch olesterol in HDL [Mass ratio] 4.8 {ratio} Normal [facility] Comment on above: Performed By: #### L IPID, T4, TSH, FT3, CMP #### [facility] [address] [address] [address] Maggy Irving HDL NORMAL > or = 60 mg/dl - LO W CARDIOVASCULAR RISK <40 mg/dl - HIGH CARDIOVASCULAR RISK Normal [facility] Comment on above: Performed By: #### L IPID, T4, TSH, FT3, CMP #### [facility] [address] [address] [address] Maggy Irving LDL CALC NORMAL SEE BELOW Normal [facility] Comment on above: Result Comment: <100 mg/dl OPTIMAL 100 - 129 mg/dl NEAR OR ABOVE OPTIMAL 130 - 159 mg/dl BORDERLINE HIGH 160 - 189 mg/dl HIGH >190 mg/dl VERY HIGH Performed By: #### L IPID, T4, TSH, FT3, CMP #### [facility] [address] [address] [address] Maggy Irving Triglyceride [Mass/Vol] 118 mg/dL Normal <=150 [facility] Comment on above: Performed By: #### L IPID, T4, TSH, FT3, CMP #### [facility] [address] [address] [address] Maggy Irving VLDL CALC 23.6 mg/dL Normal [facility] Comment on above: Performed By: #### L IPID, T4, TSH, FT3, CMP #### [facility] [address] [address] [address] Maggy Irivng OCC BLD IMMUNO SCREENon 03-20 OCCULT BLOOD Negative Normal NEGATIVE [facility] Comment on above: Performed By: #### O BSCRN #### [facility] [address] [place] [address] Dr. Maggy Irving PROF 14(COMP METB)on 022 Albumin [Mass/Vol] 3.6 g/dL Normal 3.4-5.0 [facility] Comment on above: Performed By: #### L IPID, T4, TSH, FT3, CMP #### [facility] [address] [place] [address] Dr. Maggy Irving Albumin/Globulin [Mass ratio] 1.1 {ratio} Normal [facility] Comment on above: Performed By: #### L IPID, T4, TSH, FT3, CMP #### [facility] [address] [place] [address] Dr. Maggy Irving ALP [Catalytic activity/Vol] 47 U/L Normal 46-116 [facility] Comment on above: Performed By: #### L IPID, T4, TSH, FT3, CMP #### [facility] [address] [place] [address] Dr. Maggy Irving ALT [Catalytic activity/Vol] 31 U/L Normal 16-63 [facility] Comment on above: Performed By: #### L IPID, T4, TSH, FT3, CMP #### [facility] [address] [place] [address] Dr. Maggy Irving Anion gap [Moles/Vol] 10.2 mmol/L Normal [facility] Comment on above: Performed By: #### L IPID, T4, TSH, FT3, CMP #### [facility] [address] [place] [address] Dr. Maggy Irving AST [Catalytic activity/Vol] 17 U/L Normal 15-37 [facility] Comment on above: Performed By: #### L IPID, T4, TSH, FT3, CMP #### [facility] [address] [place] [address] Dr. Maggy Irving Bilirubin [Mass/Vol] 0.6 mg/dL Normal 0.2-1.0 [facility] Comment on above: Performed By: #### L IPID, T4, TSH, FT3, CMP #### [facility] [address] [place] [address] Dr. Maggy Irving Calcium [Mass/Vol] 8.1 mg/dL Critically low 8.5-10.1 [facility] Comment on above: Performed By: #### L IPID, T4, TSH, FT3, CMP #### [facility] [address] [place] [address] Dr. Maggy Irving Chloride [Moles/Vol] 105 mmol/L Normal 98-107 [facility] Comment on above: Performed By: #### L IPID, T4, TSH, FT3, CMP #### [facility] [address] [place] [address] Dr. Maggy Irving CO2 [Moles/Vol] 29.6 mmol/L Normal 21.0-32.0 [facility] Comment on above: Performed By: #### L IPID, T4, TSH, FT3, CMP #### [facility] [address] [place] [address] Dr. Maggy Irving Creatinine [Mass/Vol] 0.89 mg/dL Normal 0.70-1.30 [facility] Comment on above: Performed By: #### L IPID, T4, TSH, FT3, CMP #### [facility] [address] [place] [address] Dr. Maggy Irving EGFR-AF ICELANDIC >60 Normal >=60 [facility] Comment on above: Performed By: #### L IPID, T4, TSH, FT3, CMP #### [facility] [address] [place] [address] Dr. Maggy Irving EGFR-NON AF ICELANDIC >60 Normal >=60 [facility] Comment on above: Performed By: #### L IPID, T4, TSH, FT3, CMP #### [facility] [address] [place] [address] Dr. Maggy Irving Globulin (S) [Mass/Vol] 3.2 g/dL Normal [facility] Comment on above: Performed By: #### L IPID, T4, TSH, FT3, CMP #### [facility] [address] [place] [address] Dr. Maggy Irving Glucose [Mass/Vol] 110 mg/dL Critically high 74-106 T [facility] Comment on above: Performed By: #### L IPID, T4, TSH, FT3, CMP #### [facility] [address] [place] [address] Dr. Maggy Irving Potassium [Moles/Vol] 3.8 mmol/L Normal 3.5-5.1 [facility] Comment on above: Performed By: #### L IPID, T4, TSH, FT3, CMP #### [facility] [address] [place] [address] Dr. Maggy Irving Protein [Mass/Vol] 6.8 g/dL Normal 6.4-8.[address] [facility] Comment on above: Performed By: #### L IPID, T4, TSH, FT3, CMP #### [facility] [address] [place] [address] Dr. Maggy Irving Sodium [Moles/Vol] 141 mmol/L Normal 136-[address] [facility] Comment on above: Performed By: #### L IPID, T4, TSH, FT3, CMP #### [facility] [address] [place] [address] Dr. Maggy Irving Urea nitrogen [Mass/Vol] 17.0 mg/dL Normal 7.0-18.0 [facility] Comment on above: Performed By: #### L IPID, T4, TSH, FT3, CMP #### [facility] [address] [place] [address] Dr. Maggy Irving Urea nitrogen/Creatinine [Mass ratio] 19.1 mg/mg Normal [facility] Comment on above: Performed By: #### L IPID, T4, TSH, FT3, CMP #### [facility] [address] [place], [place] [address] Dr. Maggy Irving T4on 04-09-2022 T4 [Mass/Vol] 7.90 ug/dL Normal 4.50-12.10 [facility] Comment on above: Performed By: #### L IPID, T4, TSH, FT3, CMP #### [facility] [address] [id number] [address] Maggy Irving TSHon 04-09-2022 TSH 4.949 uIU/mL Critically high 0.358-3.[address] [facility] Comment on above: Performed By: #### L IPID, T4, TSH, FT3, CMP #### [facility] [address] [address] [address] Maggy Irving Vital Signs Date Time Vital Sign Value Performing Clinician Faci lity 04-06-2024 09:43-0400 Body height 177.8 cm [facility] 04-06-2024 09:43-0400 Body mass index (BMI) [Ratio] 34.4 kg/m2 [facility] 04-06-2024 09:43-0400 Body temperature 98.3 [degF] [facility] 04-06-2024 09:43-0400 Body weight 109.08 kg [facility] 04-06-2024 09:43-0400 Diastolic blood pressure 78 mm[Hg] [facility] 04-06-2024 09:43-0400 Heart rate 87 /min [facility] 04-06-2024 09:43-0400 Respiratory rate 18 /min [facility] 04-06-2024 09:43-0400 SaO2% (BldA) [Mass fraction] 96 % [facility] 04-06-2024 09:43-0400 Systolic blood pressure 146 mm[Hg] [facility] Encounters Encounter Date Encounter Type Care Provider Facility Start: 06-04-2025 ambulatory Chirag STINSON Facility :[facility] Start: 05-07-2025 ambulatory Chirag STINSON Facility:[facility] Start: 04-27-2024 End: 04-27-2024 ambulatory Marcella Gross [facility] Work Phone: Start: 04-27-2024 End: 04-27-2024 Departed Referred MD Marcella Gross Work Phone: [facility] Start: 04-06-2024 End: 04-06-2024 ambulatory [facility] Work Phone: Start: 04-06-2024 End: 04-06-2024 Patient encounter procedure [facility] Work Phone: Start: 02-10-2023 End: 02-11-2023 ambulatory IVELISSE ORNELAS Facility:[facility] Start: 02-07-2023 End: 02-07-2023 ambulatory IVELISSE ORNELAS Facility:[facility] Start: 02-06-2023 Encounter for preprocedural laboratory examination IVELISSE ORNELAS [facility] Start: 01-31-2023 End: 02-01-[address] [...] T4, TSH, FT3, CMP #### [facility] [address] [place] [address] Dr. Maggy Irving Payers Date Payer Category Payer Self-pay 1957 Medicare [id number] 1957 Unknown [id number] 1950 Unknown [id number] 2.16.84 [id number] 1950 Unknown [id number] 2.16.84 [id number] 1950 Unknown [id number] 2.16.84 [id number] 1952 Unknown [id number] 2.16.84 [id number] 1952 Unknown [id number] 2.16.84 0.1.318317.3.579.2.593 1952 Unknown [id number] 2.16.84 0.1.834489.3.579.2.593 1952 Unknown [id number] 2.16.84 0.1.683514.3.579.2.593 1952 Unknown [id number] 2.16.84 0.1.196779.3.579.2.593 1952 Unknown [id number] 2.16.84 0.1.992211.3.579.2.593 1952 Unknown [id number] 2.16.84 0.1.302007.3.579.2.593 1952 Unknown [id number] 2.16.84 [id number] 1952 Unknown [id number] 2.16.8 [id number] Medicare Medicare [id number] Unknown [id number] 2.16.8 [id number] Social History Date Type Detail Facility [facility] Work Phone: Start: 1950 Sex Assigned At Male F [facility] Clinical Note 02-07-2023 Note Date & Type [...] authenticated by: OLVIN KHANNA Date: 2023-02-07 09:41 [facility] Evaluation note Note Date & Type Note Facility Evaluation note Diagnosis Onset Date Bacterial conjunctivitis of right eye acute [facility] Work Phone: Summary Purpose Family History [...] DATE CREATED AUTHOR 02/25/2023 [facility]ital DATE CREATED AUTHOR AUTHOR'S ORGANIZ ATION 05/02/2024 [facility] DATE CREATED AUTHOR AUTHOR'S ORGANIZ ATION 05/08/2025 [facility] Care Teams (unrecognized sec tion [...] BE BASED ON THE PRIMARY CLINICAL RECORDS. [facility]. provides no warranty or guarantee of the accuracy or completeness of information in this document.
--- OUTSIDE RECORDS SUMMARY | 2025-05-24 06:44 | XMS_ITS | Patient Health Record ---
Author Organization [facility] Address [address] [place] [address] Care Team Providers Care Partner Name Role Phone Brock Gross Primary Care Provider Olvin Morgan Unavailable [phone] Nena Villagomez Unavailable [phone] Reason For Referral No Information Medications Medication SIG (Take, Route, Frequency, Duration) Notes Start Date End Date Status levothyroxine Active doxazosin Active Mobic 15 mg 1 tab(s) orally once a day for 42 days 05/28/2024 Active Social History Tobacco Use: Social History Observation Description Date Details (start date - stop date) Never Smoker NA - NA AUDIT-C (Standard) Question Answer Notes Did you have a drink containing alcohol in the p ast year? No Points 0 Interpretation Negative Tobacco Control (Standard) Question Answer Notes Tobacco use: Nonsmoker Vital Signs Height 5'10 in 05/28/2024 Weight 246 lbs 05/28/2024 BMI 35.29 05/28/2024 Encounters Encounter Location Date Provider Diagnosis [facility] Office [address] [place] [address] [address] [place] [address] 05/28/2024 Nena Villagomez Inclusion cyst L72.[address] [address] [address] [facility] [place] [address] [place] [address] 07/09/2024 Nena Villagomez Inclusion cyst L72.0 Assessments Encounter Date Diagnosis (ICD Code) Assessment Notes Treatment Notes Treatment Clinical Notes Section Notes 05/28/2024 Inclusion cyst (ICD-10 - L72.0) 07/09/2024 Inclusion cyst (ICD-10 - L72.0) 05/28/2024 Other It appears that patient has an inclusion cyst on his right hand that he would like to try to treat conservatively. I have prescribed him Mobic and we will see if this will help resolve the cyst. We will see patient back in 6 weeks to reassess. 07/09/2024 Other Patient is doing well and has cyst has resolved at this time. We discussed that he could try NSAIDs if it returns again. He will follow-up on an as-needed basis. Plan Of Treatment Pending Test Test Name Order Date SCC- HAND 3 VIEW RIGHT [id number] 05/28/2024 Insurance Providers Payer Name Payer Address Payer Phone Subscriber Number Group Number Insured Name Patient Relationship to Insured Coverage Start Date Coverage End Date Medicare [address] [id number] SILVINO MARVIN Self - patient is the insured [facility] [address] [place] [phone] [id number] SILVINO MARVIN Self - patient is the insured
[2025-05-24 07:32] LABS: Hematocrit 39.6 % (42.0-54.0); Hemoglobin 14.5 g/dL (14.0-18.0); Immature Granulocytes Abs Auto 0.04 10^3/uL (0.00-0.03); Immature Granulocytes Pct Auto 1.0 % (0.0-0.5); Lymphocytes Absolute Auto 1.0 10^3/uL (1.2-3.8); Mean Corpuscular HGB Conc 36.6 g/dL (29.9-35.2); Mean Corpuscular Hemoglobin 31.6 pg (25.9-34.0); Mean Corpuscular Volume 86.3 fL (80.0-94.0); Platelet Count 126 10^3/uL (150-450); Red Blood Count 4.59 10^6/uL (4.70-6.10); White Blood Count 4.1 10^3/uL (4.0-11.0)
== END 2025-05-24 06:43 | disposition home or self-care (01) ==
LOC: LAB 06:42
PROVIDERS: PCP Family Medicine; Visit Provider Family Medicine
DX: D64.9 Anemia, unspecified (principal); R74.8 Abnormal levels of other serum enzymes
CPT/HCPCS: 36415; 85025

== ENCOUNTER 2025-06-04 09:20 | Outpatient (OUT) | payer MEDICARE, OTHER, SELFPAY ==
--- OUTSIDE RECORDS SUMMARY | 2025-06-04 09:31 | XMS_ITS | CCD ---
Author Organization [facility] Care Team Providers Care Residential Air Sealing Technician Name Role Phone CHEIKH ., DR [...] STINSON Attending Unavailable Marcella Gross Referring Unavailable Allergies Allergy Classification Reported Allergen(s) Allergy Type Date of Onset Reaction(s) Facility (1 source) No Known Medication Allergies; Translations: [No Known Medication Allergies] Propensity to adverse reactions (disorder) [facility] Repository Medications Current Medications Medication Drug Class(es) Dates [...] Episodic Other aftercare (1 source) 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; 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] Onset: 02-16-2023 Episodic Other [...] Test Name Value Interpretation Reference Range Facility [facility] 04-27-2024 L Specimen: Received: 04/30/24 Status: CASS Moore Num: [id number] Spec Type: Impression Subm Dr: Marcella Gross MD Tissues: PATHPER Procedures: PATHREVIEW Age/ Patient Sex Location Account Attending Physician Silvino Ojeda 74/M LABELL [id number] Marcella Gross MD SPEC NUM: [id number] RECD: 04/30/24 STATUS: CASS REQ NUM: [id number] KAREN: 04/27/[address]: Marcella Gross MD ENTERED: 04/30/[address] [facility] DR: SPEC TYPE: Impression DEPT: ALEXSANDRA Cervantes ENTERED BY: [id number] RECV BY: [id number] ORDERED: PATHREVIEW ORDERED: PATHREVIEW Pathologist Review Abnormal [...] shifted granulocytes, or granulocytic dysplasia observed CPT: 56696 -------- -------- Specimen: [id number] Received: 04/30/24 Status: CASS Moore Num: [id number] Spec Type: Impression Subm Dr: Marcella Gross MD Tissues: PATHPER Procedures: PATHREVIEW -------- Patient: Silvino Ojeda [id number] (Continued) -------- Signed (signature on file) Celia Irving MD 04/30/241945 Normal [facility] CULTURE OTHERon 02-11-2023 CULTURE OTHER [...] <=10 S F Normal [facility] Comment on above: Performed By: #### L IPID, T4, TSH, FT3, CMP #### [facility] [address] [address] [address] Maggy Irving FUNGAL CULTUREon 02-09-2023 Fungus Stain Final report Normal [facility] Comment on above: Performed By: #### L IPID, T4, TSH, FT3, CMP #### [facility] [address] [address] [address] Maggy Irving Result 1 Comment Normal [facility] Comment on above: Result Comment: SUDHIR/ Calcofluor preparation: no fungus observed. Performed By: #### L IPID, T4, TSH, FT3, CMP #### [facility] [address] [place] [address] Dr. Maggy Irving ACID FAST SMEAR AND CXon Acid Fast Smear Negative Normal [facility] Comment on above: Performed By: #### A FB #### [facility] [address] [address] [address] Maggy Irving [employer] Specimen Processing Tissue Grinding Normal [facility] Comment on above: Performed By: #### A FB #### [facility] [address] [place] [address] Dr. Maggy Irving CULTURE ANAEROBICon 02-08-20 CULTURE ANAEROBIC Isolate 1 Finegoldia magna Light growth of Normal [facility] Comment on above: Result Comment: EVID ENCE BASED PRACTICE BY [facility] HAS DEMONSTRATED THAT FINEGOLDIA SPECIES ARE ROUTINELY SUSCEPTIBLE TO PIPERACILLIN-TAZOBACTAM, CEFOXITIN, ERTAPENEM, IMIPENEM METRONIDAZOLE AND VARIABLY RESISTANT TO CLINDAMYCIN. Performed By: #### L IPID, T4, TSH, FT3, CMP #### [facility] [address] [address] [address] Maggy Irving GRAM STAINon 02-07-2023 COMMENTS NO ORGANISMS OBSERVED [facility] Comment on above: Performed By: #### G STAIN #### [facility] [address] [address] [address] Maggy Irving DIPHTHEROIDS Normal [facility] Comment on above: Performed By: #### G STAIN #### [facility] [address] [address] [address] Maggy Irving EPITHELIALS Normal [facility] Comment on above: Performed By: #### G STAIN #### [facility] [address] [address] [address] Maggy Irving FUNGAL ELEMENTS Normal [facility] Comment on above: Performed By: #### G STAIN #### [facility] [address] [address] [address] Maggy Irving GRAM NEG BACILLI Normal [facility] Comment on above: Performed By: #### G STAIN #### [facility] [address] [place] [address] Dr. Maggy MENDOZA NEG DIPPLOCOCCI Normal [facility] Comment on above: Performed By: #### G STAIN #### [facility] [address] [place] [address] Dr. Maggy MENDOZA POS BACILLI Normal [facility] Comment on above: Performed By: #### G STAIN #### [facility] [address] [place] [address] Dr. Maggy Irving GRAM POSITIVE COCCI Normal [facility] Comment on above: Performed By: #### G STAIN #### [facility] [address] [place] [address] Dr. Maggy Irving GRAM STAIN SOURCE 5th Metatarsal Bone Normal [facility] Comment on above: Performed By: #### G STAIN #### [facility] [address] [place] [address] Dr. Maggy Irving GS_DIPTH Normal [facility] Comment on above: Performed By: #### G STAIN #### [facility] [address] [place] [address] Dr. Maggy Irving WBC RARE Normal [facility] Comment on above: Performed By: #### G STAIN #### [facility] [address] [place] [address] Dr. Maggy Irving POINT OF CARE GLUCOSEon 01-18 Glucose [Mass/Vol] 114 mg/dL Critically high 74-106 [facility] Comment on above: Performed By: #### P OCGLUC #### [facility] [address] [place] [address] Dr. Maggy Irving Glucose [Mass/Vol] 122 mg/dL Critically high 74-106 [facility] Comment on above: Performed By: #### P OCGLUC #### [facility] [address] [address] [address] Maggy Irving PROF CHEM 8 (BAS METB)on Anion gap [Moles/Vol] 12.0 mmol/L Normal [facility] Comment on above: Performed By: #### L IPID, T4, TSH, FT3, CMP #### [facility] [address] [place] [address] Dr. Maggy Irving Calcium [Mass/Vol] 8.7 mg/dL Normal 8.5-10.1 [facility] Comment on above: Performed By: #### L IPID, T4, TSH, FT3, CMP #### [facility] [address] [place] [address] Dr. Maggy Irving Chloride [Moles/Vol] 104 mmol/L Normal 98-107 [facility] Comment on above: Performed By: #### L IPID, T4, TSH, FT3, CMP #### [facility] [address] [place] [address] Dr. Maggy Irving CO2 [Moles/Vol] 28.1 mmol/L Normal 21.0-32.0 [facility] Comment on above: Performed By: #### L IPID, T4, TSH, FT3, CMP #### [facility] [address] [place] [address] Dr. Maggy Irving Creatinine [Mass/Vol] 0.80 mg/dL Normal 0.70-1.30 [facility] Comment on above: Performed By: #### L IPID, T4, TSH, FT3, CMP #### [facility] [address] [place] [address] Dr. Maggy Irving EGFR-AF CYMRAES >60 Normal >=60 [facility] Comment on above: Performed By: #### L IPID, T4, TSH, FT3, CMP #### [facility] [address] [address] [address] Maggy Irving EGFR-NON AF CYMRAES >60 Normal >=60 [facility] Comment on above: Performed By: #### L IPID, T4, TSH, FT3, CMP #### [facility] [address] [address] [address] Maggy Irving Glucose [Mass/Vol] 129 mg/dL Critically high 74-106 [facility] Comment on above: Performed By: #### L IPID, T4, TSH, FT3, CMP #### [facility] [address] [place] [address] Dr. Maggy Irving Potassium [Moles/Vol] 4.1 mmol/L Normal 3.5-5.1 [facility] Comment on above: Performed By: #### L IPID, T4, TSH, FT3, CMP #### [facility] [address] [address] [address] Maggy Irving Sodium [Moles/Vol] 140 mmol/L Normal 136-145 [facility] Comment on above: Performed By: #### L IPID, T4, TSH, FT3, CMP #### [facility] [address] [place] [address] Dr. Maggy Irving Urea nitrogen [Mass/Vol] 20.0 mg/dL Critically high 7.0-18.0 [facility] Comment on above: Performed By: #### L IPID, T4, TSH, FT3, CMP #### [facility] [address] [address] [address] Maggy Irving Urea nitrogen/Creatinine [Mass ratio] 25.0 mg/mg Normal [facility] Comment on above: Performed By: #### L IPID, T4, TSH, FT3, CMP #### [facility] [address] [address] [address] Maggy Irving FREE T3on 01-07-2023 FREE T3 3.24 pg/mlL Normal 2.18-3.98 [facility] Comment on above: Performed By: #### L IPID, T4, TSH, FT3, CMP #### [facility] [address] [place], [place] [address] Dr. Maggy Irving T4on 01-07-2023 T4 [Mass/Vol] 9.10 ug/dL Normal 4.50-12.10 [facility] Comment on above: Performed By: #### L IPID, T4, TSH, FT3, CMP #### [facility] [address] [place], [place] [address] Dr. Maggy Irving TSHon 01-07-2023 TSH 5.957 uIU/mL Critically high 0.358-3.740 [facility] Comment on above: Performed By: #### L IPID, T4, TSH, FT3, CMP #### [facility] [address] [place], [place] [address] Dr. Maggy Irving NM STRESS/REST MULTIon 01-03 NM STRESS/REST MULTI Patient: SILVINO OJEDA Exam Date: 01/03/2023 : 1950 Gender:M Ordering : DR MARCELLA GROSS . Admission #: [id number] Family : Order #: [id number] CLICK HERE TO VIEW EXAM RADIOLOGY REPORT [...] 01/04/2023 at 07:45 Normal [facility] ECHOCARDIO M/2D COMPLETEon 0 12-21-2022 ECHOCARDIO M/2D COMPLETE Patient: SILVINO OJEDA Exam Date: 12/21/2022 : 1950 Gender:M Ordering : DR MARCELLA GROSS . Admission #: [id number] Family : Order #: [id number] CLICK HERE TO VIEW EXAM ECHOCARDIOGRAM REPORT [...] M.D. on 12/23/2022 at 18:05 Normal [facility] BNPon 12-07-2022 Natriuretic peptide B (Bld) [Mass/Vol] 37.0 pg/mL Normal <=900.0 [facility] Comment on above: Performed By: #### L IPID, T4, TSH, FT3, CMP #### [facility] [address] [place] [address] Dr. Maggy Irving CBC AUTO DIFFon 12-07-2022 BASO # 0.0 103/ul Normal 0.0-0.1 [facility] Comment on above: Performed By: #### L IPID, T4, TSH, FT3, CMP #### [facility] [address] [place] [address] Dr. Maggy Irving Basophils/100 WBC (Bld) 0.2 % Normal 0.2-2.0 [facility] Comment on above: Performed By: #### L IPID, T4, TSH, FT3, CMP #### [facility] [address] [place] [address] Dr. Maggy Irving EO # 0.2 103/ul Normal 0.0-0.7 [facility] Comment on above: Performed By: #### L IPID, T4, TSH, FT3, CMP #### [facility] [address] [place] [address] Dr. Maggy Irving Eosinophils/100 WBC (Bld) 3.7 % Normal 0.9-7.0 [facility] Comment on above: Performed By: #### L IPID, T4, TSH, FT3, CMP #### [facility] [address] [place] [address] Dr. Maggy Irving Erythrocyte distribution width (RBC) [Ratio] 11.9 % Normal 11.0-15.0 [facility] Comment on above: Performed By: #### L IPID, T4, TSH, FT3, CMP #### [facility] [address] [place] [address] Dr. Maggy Irving Hematocrit (Bld) [Volume fraction] 39.7 % Critically low 42.0-54.0 [facility] Comment on above: Performed By: #### L IPID, T4, TSH, FT3, CMP #### [facility] [address] [place] [address] Dr. Maggy Irving Hemoglobin (Bld) [Mass/Vol] 14.0 g/dL Normal 14.0-18.0 [facility] Comment on above: Performed By: #### L IPID, T4, TSH, FT3, CMP #### [facility] [address] [place] [address] Dr. Maggy Irving IG # 0.02 10e3/ul Normal 0.00-0.03 [facility] Comment on above: Performed By: #### L IPID, T4, TSH, FT3, CMP #### [facility] [address] [place] [address] Dr. Maggy Irving IG % 0.5 % Normal 0.0-0.5 [facility] Comment on above: Performed By: #### L IPID, T4, TSH, FT3, CMP #### [facility] [address] [place] [address] Dr. Maggy Irving LYMPH # 0.9 103/ul Critically low 1.2-3.8 [facility] Comment on above: Performed By: #### L IPID, T4, TSH, FT3, CMP #### [facility] [address] [place] [address] Dr. Maggy Irving Lymphocytes/100 WBC (Bld) 21.1 % Normal 20.5-60.0 [facility] Comment on above: Performed By: #### L IPID, T4, TSH, FT3, CMP #### [facility] [address] [place] [address] Dr. Maggy Irving MANUAL DIFF REQ NO Normal [facility] Comment on above: Performed By: #### L IPID, T4, TSH, FT3, CMP #### [facility] [address] [place] [address] Dr. Maggy Irving MCH (RBC) [Entitic mass] 30.5 pg Normal 25.9-34.0 [facility] Comment on above: Performed By: #### L IPID, T4, TSH, FT3, CMP #### [facility] [address] [place] [address] Dr. Maggy Irving MCHC (RBC) [Mass/Vol] 35.3 g/dL Critically high 29.9-35.2 [facility] Comment on above: Performed By: #### L IPID, T4, TSH, FT3, CMP #### [facility] [address] [place] [address] Dr. Magyg Irving MCV (RBC) [Entitic vol] 86.5 fL Normal 80.0-94.0 [facility] Comment on above: Performed By: #### L IPID, T4, TSH, FT3, CMP #### [facility] [address] [place] [address] Dr. Maggy Irving MONO # 0.4 103/ul Normal 0.3-0.8 [facility] Comment on above: Performed By: #### L IPID, T4, TSH, FT3, CMP #### [facility] [address] [place] [address] Dr. Maggy Irving Monocytes/100 WBC (Bld) 8.7 % Normal 1.7-12.0 [facility] Comment on above: Performed By: #### L IPID, T4, TSH, FT3, CMP #### [facility] [address] [place] [address] Dr. Maggy Irving NEUT # 2.9 103/ul Normal 1.4-6.5 [facility] Comment on above: Performed By: #### L IPID, T4, TSH, FT3, CMP #### [facility] [address] [place] [address] Dr. Maggy Irving Neutrophils/100 WBC (Bld) 65.8 % Normal 43.0-75.0 [facility] Comment on above: Performed By: #### L IPID, T4, TSH, FT3, CMP #### [facility] [address] [place] [address] Dr. Maggy Irving Platelet mean volume (Bld) [Entitic vol] 9.9 fL Normal 9.5-13.5 [facility] Comment on above: Performed By: #### L IPID, T4, TSH, FT3, CMP #### [facility] [address] [place] [address] Dr. Maggy Irving PLT 128 103/ul Critically low 150-450 [facility] Comment on above: Performed By: #### L IPID, T4, TSH, FT3, CMP #### [facility] [address] [place] [address] Dr. Maggy Irving RBC 4.59 106/ul Critically low 4.70-6.10 [facility] Comment on above: Performed By: #### L IPID, T4, TSH, FT3, CMP #### [facility] [address] [place] [address] Dr. Maggy Irving WBC 4.4 103/ul Normal 4.0-11.0 [facility] Comment on above: Performed By: #### L IPID, T4, TSH, FT3, CMP #### [facility] [address] [place] [address] Dr. Maggy Irving FREE THYROXINE INDEX T7on FTI 2.72 Normal 1.30-4.50 [facility] Comment on above: Performed By: #### L IPID, T4, TSH, FT3, CMP #### [facility] [address] [place] [address] Dr. Maggy Irving T3U 34.0 % Normal 33.0-40.0 [facility] Comment on above: Performed By: #### L IPID, T4, TSH, FT3, CMP #### [facility] [address] [place] [address] Dr. Maggy Irving T4 [Mass/Vol] 8.00 ug/dL Normal 4.50-12.10 [facility] Comment on above: Performed By: #### L IPID, T4, TSH, FT3, CMP #### [facility] [address] [address] [address] Maggy Irving IRONon 12-07-2022 Iron [Mass/Vol] 134.0 ug/dL Normal 65.0-175.0 [facility] Comment on above: Performed By: #### L IPID, T4, TSH, FT3, CMP #### [facility] [address] [address] [address] Maggy Irving LIPID PROFILEon 12-07-2022 CHOL-HDL RATIO NORM SEE BELOW Normal [facility] Comment on above: Result Comment: 3.3 - 4.4 LOW RISK 4.4 - 7.1 AVERAGE RISK 7.1 - 11.0 MODERATE RISK >11.0 HIGH RISK Performed By: #### L IPID, T4, TSH, FT3, CMP #### [facility] [address] [place] [address] Dr. Maggy Irving Cholesterol [Mass/Vol] 180 mg/dL Normal <=200 [facility] Comment on above: Performed By: #### L IPID, T4, TSH, FT3, CMP #### [facility] [address] [address] [address] Maggy Irving Cholesterol in HDL [Mass/Vol] 37 mg/dL Critically low 40-60 [facility] Comment on above: Performed By: #### L IPID, T4, TSH, FT3, CMP #### [facility] [address] [address] [address] Maggy Irving Cholesterol in LDL [Mass/Vol] 95.2 mg/dL Normal [facility] Comment on above: Performed By: #### L IPID, T4, TSH, FT3, CMP #### [facility] [address] [address] [address] Maggy Irving Cholesterol.total/Ch olesterol in HDL [Mass ratio] 4.9 {ratio} Normal [facility] Comment on above: Performed By: #### L IPID, T4, TSH, FT3, CMP #### [facility] [address] [place] [address] Dr. Maggy Irving HDL NORMAL > or = 60 mg/dl - LO W CARDIOVASCULAR RISK <40 mg/dl - HIGH CARDIOVASCULAR RISK Normal [facility] Comment on above: Performed By: #### L IPID, T4, TSH, FT3, CMP #### [facility] [address] [place] [address] Dr. Maggy Irving LDL CALC NORMAL SEE BELOW Normal [facility] Comment on above: Result Comment: <100 mg/dl OPTIMAL 100 - 129 mg/dl NEAR OR ABOVE OPTIMAL 130 - 159 mg/dl BORDERLINE HIGH 160 - 189 mg/dl HIGH >190 mg/dl VERY HIGH Performed By: #### L IPID, T4, TSH, FT3, CMP #### [facility] [address] [address] [address] Maggy Irving Triglyceride [Mass/Vol] 239 mg/dL Critically high <=150 [facility] Comment on above: Performed By: #### L IPID, T4, TSH, FT3, CMP #### [facility] [address] [address] [address] Maggy Irving VLDL CALC 47.8 mg/dL Normal [facility] Comment on above: Performed By: #### L IPID, T4, TSH, FT3, CMP #### [facility] [address] [address] [address] Maggy Irving PROF 14(COMP METB)on 023 Albumin [Mass/Vol] 3.8 g/dL Normal 3.4-5.0 [facility] Comment on above: Performed By: #### L IPID, T4, TSH, FT3, CMP #### [facility] [address] [address] [address] Maggy Irving Albumin/Globulin [Mass ratio] 1.1 {ratio} Normal [facility] Comment on above: Performed By: #### L IPID, T4, TSH, FT3, CMP #### [facility] [address] [place] [address] Dr. Maggy Irving ALP [Catalytic activity/Vol] 53 U/L Normal 46-116 [facility] Comment on above: Performed By: #### L IPID, T4, TSH, FT3, CMP #### [facility] [address] [place] [address] Dr. Maggy Irving ALT [Catalytic activity/Vol] 43 U/L Normal 16-63 [facility] Comment on above: Performed By: #### L IPID, T4, TSH, FT3, CMP #### [facility] [address] [place] [address] Dr. Maggy Irving Anion gap [Moles/Vol] 12.2 mmol/L Normal [facility] Comment on above: Performed By: #### L IPID, T4, TSH, FT3, CMP #### [facility] [address] [place] [address] Dr. Maggy Irving AST [Catalytic activity/Vol] 22 U/L Normal 15-37 [facility] Comment on above: Performed By: #### L IPID, T4, TSH, FT3, CMP #### [facility] [address] [place] [address] Dr. Maggy Irving Bilirubin [Mass/Vol] 0.6 mg/dL Normal 0.2-1.0 [facility] Comment on above: Performed By: #### L IPID, T4, TSH, FT3, CMP #### [facility] [address] [place] [address] Dr. Maggy Irving Calcium [Mass/Vol] 8.9 mg/dL Normal 8.5-10.1 [facility] Comment on above: Performed By: #### L IPID, T4, TSH, FT3, CMP #### [facility] [address] [place] [address] Dr. Maggy Irving Chloride [Moles/Vol] 104 mmol/L Normal 98-107 [facility] Comment on above: Performed By: #### L IPID, T4, TSH, FT3, CMP #### [facility] [address] [place] [address] Dr. Maggy Irving CO2 [Moles/Vol] 28.8 mmol/L Normal 21.0-32.0 [facility] Comment on above: Performed By: #### L IPID, T4, TSH, FT3, CMP #### [facility] [address] [place] [address] Dr. Maggy Irving Creatinine [Mass/Vol] 0.83 mg/dL Normal 0.70-1.30 [facility] Comment on above: Performed By: #### L IPID, T4, TSH, FT3, CMP #### [facility] [address] [place] [address] Dr. Maggy Irving EGFR-AF CYMRAES >60 Normal >=60 [facility] Comment on above: Performed By: #### L IPID, T4, TSH, FT3, CMP #### [facility] [address] [place] [address] Dr. Maggy Irving EGFR-NON AF CYMRAES >60 Normal >=60 [facility] Comment on above: Performed By: #### L IPID, T4, TSH, FT3, CMP #### [facility] [address] [place] [address] Dr. Maggy Irving Globulin (S) [Mass/Vol] 3.4 g/dL Normal [facility] Comment on above: Performed By: #### L IPID, T4, TSH, FT3, CMP #### [facility] [address] [place] [address] Dr. Maggy Irving Glucose [Mass/Vol] 116 mg/dL Critically high 74-106 [facility] Comment on above: Performed By: #### L IPID, T4, TSH, FT3, CMP #### [facility] [address] [place] [address] Dr. Maggy Irving Potassium [Moles/Vol] 4.0 mmol/L Normal 3.5-5.1 [facility] [facility] Comment on above: Performed By: #### L IPID, T4, TSH, FT3, CMP #### [facility] [address] [place] [address] Dr. Maggy Irving Protein [Mass/Vol] 7.2 g/dL Normal 6.4-8.2 [facility] Comment on above: Performed By: #### L IPID, T4, TSH, FT3, CMP #### [facility] [address] [place], [place] [id number] Dr. Maggy Irving Sodium [Moles/Vol] 141 mmol/L Normal 136-145 [facility] Comment on above: Performed By: #### L IPID, T4, TSH, FT3, CMP #### [facility] [address] [place] [address] Dr. Maggy Irving Urea nitrogen [Mass/Vol] 17.0 mg/dL Normal 7.0-18.0 [facility] Comment on above: Performed By: #### L IPID, T4, TSH, FT3, CMP #### [facility] [address] [address] [address] Maggy Irving Urea nitrogen/Creatinine [Mass ratio] 20.5 mg/mg Normal [facility] Comment on above: Performed By: #### L IPID, T4, TSH, FT3, CMP #### [facility] [address] [place] [address] Dr. Maggy Irving TSHon 12-07-2022 TSH 5.531 uIU/mL Critically high 0.358-3.740 [facility] Comment on above: Performed By: #### L IPID, T4, TSH, FT3, CMP #### [facility] [address] [place] [address] Dr. Maggy Irving TESTOSTERONE, TOTALon 2021 Testosterone [Mass/Vol] 390 ng/dL Normal 264-916 [facility] Comment on above: Result Comment: Adul t male reference interval is based on a population of healthy nonobese males (BMI <30) between 19 and 39 years old. Reynaldo et.al. JCEM 2017,102;4823-0394. PMID: [id number]. Performed By: #### L IPID, T4, TSH, FT3, CMP #### [facility] [address] [place] [address] Dr. Maggy Irving CBC AUTO DIFFon 04-09-2022 BASO # 0.0 103/ul Normal 0.0-0.1 [facility] Comment on above: Performed By: #### L IPID, T4, TSH, FT3, CMP #### [facility] [address] [place] [address] Dr. Maggy Irving Basophils/100 WBC (Bld) 0.2 % Normal 0.2-2.0 [facility] Comment on above: Performed By: #### L IPID, T4, TSH, FT3, CMP #### [facility] [address] [place] [address] Dr. Maggy Irving EO # 0.2 103/ul Normal 0.0-0.7 [facility] Comment on above: Performed By: #### L IPID, T4, TSH, FT3, CMP #### [facility] [address] [place] [address] Dr. Maggy Irving Eosinophils/100 WBC (Bld) 3.1 % Normal 0.9-7.0 [facility] Comment on above: Performed By: #### L IPID, T4, TSH, FT3, CMP #### [facility] [address] [place] [address] Dr. Maggy Irving Erythrocyte distribution width (RBC) [Ratio] 12.3 % Normal 11.0-15.0 [facility] Comment on above: Performed By: #### L IPID, T4, TSH, FT3, CMP #### [facility] [address] [place] [address] Dr. Maggy Irving Hematocrit (Bld) [Volume fraction] 41.6 % Critically low 42.0-54.0 [facility] Comment on above: Performed By: #### L IPID, T4, TSH, FT3, CMP #### [facility] [address] [place] [address] Dr. Maggy Irving Hemoglobin (Bld) [Mass/Vol] 14.6 g/dL Normal 14.0-18.0 [facility] Comment on above: Performed By: #### L IPID, T4, TSH, FT3, CMP #### [facility] [address] [place] [address] Dr. Maggy Irving IG # 0.02 10e3/ul Normal 0.00-0.03 [facility] Comment on above: Performed By: #### L IPID, T4, TSH, FT3, CMP #### [facility] [address] [place] [address] Dr. Maggy Irving IG % 0.4 % Normal 0.0-0.5 [facility] Comment on above: Performed By: #### L IPID, T4, TSH, FT3, CMP #### [facility] [address] [place] [address] Dr. Maggy Irving LYMPH # 0.9 103/ul Critically low 1.2-3.8 [facility] Comment on above: Performed By: #### L IPID, T4, TSH, FT3, CMP #### [facility] [address] [place] [address] Dr. Maggy Irving Lymphocytes/100 WBC (Bld) 17.9 % Critically low 20.5-60.0 [facility] Comment on above: Performed By: #### L IPID, T4, TSH, FT3, CMP #### [facility] [address] [place] [address] Dr. Maggy Irving MANUAL DIFF REQ NO Normal [facility] Comment on above: Performed By: #### L IPID, T4, TSH, FT3, CMP #### [facility] [address] [place] [address] Dr. Maggy Irving MCH (RBC) [Entitic mass] 31.1 pg Normal 25.9-34.0 [facility] Comment on above: Performed By: #### L IPID, T4, TSH, FT3, CMP #### [facility] [address] [place] [address] Dr. Maggy Irving MCHC (RBC) [Mass/Vol] 35.1 g/dL Normal 29.9-35.2 [facility] Comment on above: Performed By: #### L IPID, T4, TSH, FT3, CMP #### [facility] [address] [place] [address] Dr. Maggy Irving MCV (RBC) [Entitic vol] 88.5 fL Normal 80.0-94.0 [facility] Comment on above: Performed By: #### L IPID, T4, TSH, FT3, CMP #### [facility] [address] [place] [address] Dr. Maggy Irving MONO # 0.4 103/ul Normal 0.3-0.8 [facility] Comment on above: Performed By: #### L IPID, T4, TSH, FT3, CMP #### [facility] [address] [place] [address] Dr. Maggy Irving Monocytes/100 WBC (Bld) 8.7 % Normal 1.7-12.0 [facility] Comment on above: Performed By: #### L IPID, T4, TSH, FT3, CMP #### [facility] [address] [place] [address] Dr. Maggy Irving NEUT # 3.4 103/ul Normal 1.4-6.5 [facility] Comment on above: Performed By: #### L IPID, T4, TSH, FT3, CMP #### [facility] [address] [place] [address] Dr. Maggy Irving Neutrophils/100 WBC (Bld) 69.7 % Normal 43.0-75.0 [facility] Comment on above: Performed By: #### L IPID, T4, TSH, FT3, CMP #### [facility] [address] [place] [address] Dr. Maggy Irving Platelet mean volume (Bld) [Entitic vol] 9.9 fL Normal 9.5-13.5 [facility] Comment on above: Performed By: #### L IPID, T4, TSH, FT3, CMP #### [facility] [address] [place] [address] Dr. Maggy Irving PLT 121 103/ul Critically low 150-450 [facility] Comment on above: Performed By: #### L IPID, T4, TSH, FT3, CMP #### [facility] [address] [place] [address] Dr. Maggy Irving RBC 4.70 106/ul Normal 4.70-6.10 [facility] Comment on above: Performed By: #### L IPID, T4, TSH, FT3, CMP #### [facility] [address] [address] [address] Maggy Irving WBC 4.8 103/ul Normal 4.0-11.0 [facility] Comment on above: Performed By: #### L IPID, T4, TSH, FT3, CMP #### [facility] [address] [address] [address] Maggy Irving FREE T3on 04-09-2022 FREE T3 3.15 pg/mlL Normal 2.18-3.98 [facility] Comment on above: Performed By: #### L IPID, T4, TSH, FT3, CMP #### [facility] [address] [address] [address] Maggy Irving GLYCOHEMOGLOBIN A1Con 2021 ADA RECOMMENDATION SEE BELOW Normal [facility] Comment on above: Result Comment: ADA RECOMMENDED LIMIT 4.0 - 6.0 ADA THERAPEUTIC TARGET < 7.0 ACTION SUGGESTED > 7.0 Performed By: #### L IPID, T4, TSH, FT3, CMP #### [facility] [address] [address] [address] Maggy Irving Glucose [Mass/Vol] 123 mg/dL Normal [facility] Comment on above: Performed By: #### L IPID, T4, TSH, FT3, CMP #### [facility] [address] [address] [address] Maggy Irving HbA1c (Bld) [Mass fraction] 5.9 % Normal 4.5-6.2 [facility] Comment on above: Performed By: #### L IPID, T4, TSH, FT3, CMP #### [facility] [address] [address] [address] Maggy Irving LIPID PROFILEon 04-09-2022 CHOL-HDL RATIO NORM SEE BELOW Normal [facility] Comment on above: Result Comment: 3.3 - 4.4 LOW RISK 4.4 - 7.1 AVERAGE RISK 7.1 - 11.0 MODERATE RISK >11.0 HIGH RISK Performed By: #### L IPID, T4, TSH, FT3, CMP #### [facility] [address] [place] [address] Dr. Maggy Irving Cholesterol [Mass/Vol] 174 mg/dL Normal <=200 [facility] Comment on above: Performed By: #### L IPID, T4, TSH, FT3, CMP #### [facility] [address] [address] [address] Maggy Irving Cholesterol in HDL [Mass/Vol] 36 mg/dL Critically low 40-60 [facility] Comment on above: Performed By: #### L IPID, T4, TSH, FT3, CMP #### [facility] [address] [address] [address] Maggy Irving Cholesterol in LDL [Mass/Vol] 114.4 mg/dL Normal [facility] Comment on above: Performed By: #### L IPID, T4, TSH, FT3, CMP #### [facility] [address] [place] [address] Dr. Maggy Irving Cholesterol.total/Ch olesterol in HDL [Mass ratio] 4.8 {ratio} Normal [facility] Comment on above: Performed By: #### L IPID, T4, TSH, FT3, CMP #### [facility] [address] [address] [address] Maggy Irving HDL NORMAL > or = 60 mg/dl - LO W CARDIOVASCULAR RISK <40 mg/dl - HIGH CARDIOVASCULAR RISK Normal [facility] Comment on above: Performed By: #### L IPID, T4, TSH, FT3, CMP #### [facility] [address] [place] [address] Dr. Maggy Irving LDL CALC NORMAL SEE BELOW Normal [facility] Comment on above: Result Comment: <100 mg/dl OPTIMAL 100 - 129 mg/dl NEAR OR ABOVE OPTIMAL 130 - 159 mg/dl BORDERLINE HIGH 160 - 189 mg/dl HIGH >190 mg/dl VERY HIGH Performed By: #### L IPID, T4, TSH, FT3, CMP #### [facility] [address] [address] [address] Maggy Irving Triglyceride [Mass/Vol] 118 mg/dL Normal <=150 [facility] Comment on above: Performed By: #### L IPID, T4, TSH, FT3, CMP #### [facility] [address] [place] [address] Dr. Maggy Irving VLDL CALC 23.6 mg/dL Normal [facility] Comment on above: Performed By: #### L IPID, T4, TSH, FT3, CMP #### [facility] [address] [place] [address] Dr. Maggy Irving OCC BLD IMMUNO SCREENon 03-20 OCCULT BLOOD Negative Normal NEGATIVE [facility] Comment on above: Performed By: #### O BSCRN #### [facility] [address] [place] [address] Dr. Maggy Irving PROF 14(COMP METB)on 022 Albumin [Mass/Vol] 3.6 g/dL Normal 3.4-5.0 [facility] Comment on above: Performed By: #### L IPID, T4, TSH, FT3, CMP #### [facility] [address] [place] [address] Dr. Maggy Irving Albumin/Globulin [Mass ratio] 1.1 {ratio} Normal [facility] Comment on above: Performed By: #### L IPID, T4, TSH, FT3, CMP #### [facility] [address] [place] [address] Dr. Maggy Irving ALP [Catalytic activity/Vol] 47 U/L Normal 46-116 [facility] Comment on above: Performed By: #### L IPID, T4, TSH, FT3, CMP #### [facility] [address] [place] [address] Dr. Maggy Irving ALT [Catalytic activity/Vol] 31 U/L Normal 16-63 [facility] Comment on above: Performed By: #### L IPID, T4, TSH, FT3, CMP #### [facility] [address] [place] [address] Dr. Maggy Irving Anion gap [Moles/Vol] 10.2 mmol/L Normal [facility] Comment on above: Performed By: #### L IPID, T4, TSH, FT3, CMP #### [facility] [address] [place] [address] Dr. Maggy Irving AST [Catalytic activity/Vol] 17 U/L Normal 15-37 [facility] Comment on above: Performed By: #### L IPID, T4, TSH, FT3, CMP #### [facility] [address] [address] [address] Maggy Irving Bilirubin [Mass/Vol] 0.6 mg/dL Normal 0.2-1.0 [facility] Comment on above: Performed By: #### L IPID, T4, TSH, FT3, CMP #### [facility] [address] [place] [address] Dr. Maggy Irving Calcium [Mass/Vol] 8.1 mg/dL Critically low 8.5-10.1 [facility] Comment on above: Performed By: #### L IPID, T4, TSH, FT3, CMP #### [facility] [address] [place] [address] Dr. Maggy Irving Chloride [Moles/Vol] 105 mmol/L Normal 98-107 [facility] Comment on above: Performed By: #### L IPID, T4, TSH, FT3, CMP #### [facility] [address] [place] [address] Dr. Maggy Irving CO2 [Moles/Vol] 29.6 mmol/L Normal 21.0-32.0 [facility] Comment on above: Performed By: #### L IPID, T4, TSH, FT3, CMP #### [facility] [address] [place] [address] Dr. Maggy Irving Creatinine [Mass/Vol] 0.89 mg/dL Normal 0.70-1.30 [facility] Comment on above: Performed By: #### L IPID, T4, TSH, FT3, CMP #### [facility] [address] [place] [address] Dr. Maggy Irving EGFR-AF CYMRAES >60 Normal >=60 [facility] Comment on above: Performed By: #### L IPID, T4, TSH, FT3, CMP #### [facility] [address] [place], [place] [address] Dr. Maggy Irving EGFR-NON AF CYMRAES >60 Normal >=60 [facility] Comment on above: Performed By: #### L IPID, T4, TSH, FT3, CMP #### [facility] [address] [place] [address] Dr. Maggy Irving Globulin (S) [Mass/Vol] 3.2 g/dL Normal [facility] Comment on above: Performed By: #### L IPID, T4, TSH, FT3, CMP #### [facility] [address] [place] [address] Dr. Maggy Irving Glucose [Mass/Vol] 110 mg/dL Critically high 74-106 T [facility] Comment on above: Performed By: #### L IPID, T4, TSH, FT3, CMP #### [facility] [address] [place] [address] Dr. Maggy Irving Potassium [Moles/Vol] 3.8 mmol/L Normal 3.5-5.1 [facility] Comment on above: Performed By: #### L IPID, T4, TSH, FT3, CMP #### [facility] [address] [place] [address] Dr. Maggy Irving Protein [Mass/Vol] 6.8 g/dL Normal 6.4-8.2 [facility] Comment on above: Performed By: #### L IPID, T4, TSH, FT3, CMP #### [facility] [address] [place] [address] Dr. Maggy Irving Sodium [Moles/Vol] 141 mmol/L Normal 136-145 [facility] Comment on above: Performed By: #### L IPID, T4, TSH, FT3, CMP #### [facility] [address] [place] [address] Dr. Maggy Irving Urea nitrogen [Mass/Vol] 17.0 mg/dL Normal 7.0-18.0 [facility] Comment on above: Performed By: #### L IPID, T4, TSH, FT3, CMP #### [facility] [address] [place] [address] Dr. Maggy Irving Urea nitrogen/Creatinine [Mass ratio] 19.1 mg/mg Normal [facility] Comment on above: Performed By: #### L IPID, T4, TSH, FT3, CMP #### [facility] [address] [address] [address] Maggy Irving T4on 04-09-2022 T4 [Mass/Vol] 7.90 ug/dL Normal 4.50-12.10 [facility] Comment on above: Performed By: #### L IPID, T4, TSH, FT3, CMP #### [facility] [address] [address] [address] Maggy Irving TSHon 04-09-2022 TSH 4.949 uIU/mL Critically high 0.358-3.740 [facility] Comment on above: Performed By: #### L IPID, T4, TSH, FT3, CMP #### [facility] [address] [address] [address] Maggy Irving Vital Signs Date Time Vital Sign Value Performing Clinician Faci lity 04-06-2024 09:43-0400 Body height 177.[address] [facility] 04-06-2024 09:43-0400 Body mass index (BMI) [Ratio] 34.4 kg/m2 [facility] 04-06-2024 09:43-0400 Body temperature 98.3 [degF] [facility] 04-06-2024 09:43-0400 Body weight 109.[address] [facility] 04-06-2024 09:43-0400 Diastolic blood pressure 78 mm[Hg] [facility] 04-06-2024 09:43-0400 Heart rate 87 /min [facility] 04-06-2024 09:43-0400 Respiratory rate 18 /min [facility] 04-06-2024 09:43-0400 SaO2% (BldA) [Mass fraction] 96 % [facility] 04-06-2024 09:43-0400 Systolic blood pressure 146 mm[Hg] [facility] Encounters Encounter Date Encounter Type Care Provider Facility Start: 06-04-2025 ambulatory [facility] [place] Start: 05-07-2025 ambulatory Chirag STINSON Facility:[facility] [place] Start: 04-27-2024 End: 04-27-2024 ambulatory Marcella Gross [facility] Work Phone: Start: 04-27-2024 End: 04-27-2024 Departed Referred MD Marcella Gross Work Phone: [facility] Start: 04-06-2024 End: 04-06-2024 ambulatory [facility] Work Phone: Start: 04-06-2024 End: 04-06-2024 Patient encounter procedure [facility] Work Phone: Start: 02-10-2023 End: 02-11-2023 ambulatory IVELISSE ORNELAS Facility:[facility] Start: 02-07-2023 End: 02-07-2023 ambulatory IVELISSE ORNELAS Facility:[facility] Start: 02-06-2023 Encounter for preprocedural laboratory examination IVELISSE ORNELAS [facility] Start: 01-31-2023 End: 02-01-2023 ambulatory [...] End: 04-10-[address] MARCELLA GROSS . Facility: Procedures Date Procedure Procedure Detail Performing Clinician Start: 04-09-[address] NATHAN GROSS . Comment on above: Performed By: #### L IPID, T4, TSH, FT3, CMP #### [facility] [address] [place] [address] Dr. Maggy Irving Payers Date Payer Category Payer Self-pay 1957 Medicare [id number] 1957 Unknown [id number] 1950 Unknown [id number] 2.16.84 [id number] 1952 Unknown [id number] 2.16.84 [id number] 1952 Unknown [id number] 2.16.84 [id number] 1952 Unknown [id number] 2.16.84 0.1.503480.3.579.2.593 1952 Unknown [id number] 2.16.84 0.1.492936.3.579.2.593 1952 Unknown [id number] 2.16.84 0.1.425923.3.579.2.593 1952 Unknown [id number] 2.16.84 0.1.330101.3.579.2.593 1952 Unknown [id number] 2.16.84 0.1.448186.3.579.2.593 1952 Unknown [id number] 2.16.84 0.1.433059.3.579.2.593 1952 Unknown [id number] 2.16.84 0.1.555418.3.579.2.593 1952 Unknown [id number] 2.16.84 0.1.991620.3.579.2.593 1952 Unknown [id number] 2.16.8 [id number] Medicare Medicare [id number] [id number] Unknown [id number] 2.16.8 [id number] Social History Date Type Detail Facility Tobacco smoking stat [facility] Unknown if ever smoked [facility] Work Phone: Start: 1950 Sex Assigned [...] by: OLVIN KHANNA Date: 2023-02-07 09:41 [facility] Evaluation note Note Date & Type Note Facility Evaluation note Diagnosis Onset Date Bacterial conjunctivitis of right eye acute [facility] Work Phone: Summary Purpose Family History [...] and content) DATE CREATED AUTHOR 02/25/2023 [facility] DATE CREATED AUTHOR AUTHOR'S ORGANIZ ATION 05/02/2024 [facility] DATE CREATED AUTHOR AUTHOR'S ORGANIZ ATION 05/30/2025 Lev Lassiter [facility] Care Teams (unrecognized sec tion and [...] BE BASED ON THE PRIMARY CLINICAL RECORDS. [facility] [employer] provides no warranty or guarantee of the accuracy or completeness of information in this document.
== END 2025-06-04 09:21 | disposition home or self-care (01) ==
LOC: WC 09:20
PROVIDERS: PCP Family Medicine; Visit Provider Physician Assistant
DX: L97.412 Non-pressure chronic ulcer of right heel and midfoot with fat layer exposed (principal)
CPT/HCPCS: 11043

== ENCOUNTER 2025-06-18 09:55 | Outpatient (OUT) | payer MEDICARE, OTHER, SELFPAY ==
--- OUTSIDE RECORDS SUMMARY | 2024-06-20 05:00 | XMS_ITS ---
Author Organization The [facility] in [place] Address [address] [place] [address] Care Team Providers Care Sand Car Worker Name Role Phone Quinn Gross Primary Care Provider [phone] Gaudencio Wilson [phone] REASON FOR VISIT 8 week f/u Encounters Encounter Location Date Provider Diagnosis [facility] (PODIATRY) [address] [place] [address] [place] [address] 06/20/2024 Gaudencio Schneider Plan Of Treatment Next Appt Details Provider Name:Quinn Gross, 09:15:00 AM, [address] [facility] [place], [address], Progress Notes * Michael OJEDA LDOB:1949 (75 yo M)Acc No.[id number]:06/20/2024 UNLOCKED PROGRESS NOTE Follow Up Patient: Michael HAGER Provider: Helen Schneider DPM, MS :1950 A ge:74 Y S ex:Male Date:06/20/2024 Address:[address] [place] [address] Pcp:Quinn Gross Subjective: * Chief Complaints: * 1 . 8 week f/u. * Medical History: Objective: * Vitals: Assessment: Plan: * Treatment: * * Electronic signature of Devan Schneider DPM on 06/18/2025 at 10:00 AM EDT Sign off status: Pending Visit Status: C ANC (Cancelled) * Provider: Helen Schneider DPM, MS Date: 1 Generated for Armen Madison/Lindsey on: 0 06/18/2025 10:00 AM EDT
--- OUTSIDE RECORDS SUMMARY | 2025-06-04 14:27 | XMS_ITS ---
Author Name Auto Generated Organization [facility] Care Team Providers Care Bereavement Program Coordinator Name Role Phone Chirag STINSON Attending Unavailable Brock Gross Referring Unavailable PROBLEMS No Problem Records Found PROCEDURES No Procedure Records Found RESULTS AMBULATORY VISIT SUMMARY Observed: 06/04 2:27 PM Status: F Source: [facility] Ambulatory Visit Summary DAVIS MARVINHANY Maldonado :1950 Visit Date:06/04/2025 Ambulatory Visit Instructions Your Diagnosis Positive fecal occult blood test Your Care Team Attending Physician - Chirag STINSON MD Primary Care Physician - Brock Gross MD Referring Physician - Brock Gross MD This Is Your Medications List Contact prescribing physician if questions or concerns aspirin (aspirin 325 mg Oral EC Tab) doxazosin (doxazosin 4 mg Tab) ferrous sulfate (ferrous sulfate 325 mg Tab) levothyroxine (levothyroxine 75 mcg (0.075 mg) Tab) magnesium oxide (magnesium oxide 500 mg oral tablet) Procedures Performed Amputation of fifth toe, Repair of inguinal hernia. Discharge Vitals Heart Rate (Peripheral) 72 Respiratory Rate 16 Blood Pressure 116/60 Height 177.8 cm Height 70 in Weight 112.3 kg Weight 247.579 lb BMI 35.52 Medications What How Much When Instructions Unchanged aspirin (aspirin 325 mg Oral EC Tab) 2 Tablets By Mouth Every day Contact prescribing physician if questions or concerns Unchanged doxazosin (doxazosin 4 mg Tab) 1 Tablets By Mouth Every day Contact prescribing physician if questions or concerns Unchanged ferrous sulfate (ferrous sulfate 325 mg Tab) 1 Tablets By Mouth 2 times a day Contact prescribing physician if questions or concerns Unchanged levothyroxine (levothyroxine 75 mcg (0.075 mg) Tab) 1 Tablets By Mouth Every day Contact prescribing physician if questions or concerns Unchanged magnesium oxide (magnesium oxide 500 mg oral tablet) 1 Tablets By Mouth Every day Contact prescribing physician if questions or concerns Allergies No Known Allergies No Known Medication Allergies Problems Ongoing - Any problem that you are currently receiving treatment for. BMI 35.0-35.9,adult Hlpuoap-Furwt-Ddjcm disease Chronic ulcer of left heel Class 3 obesity Hyperlipidemia Hypertension Hypothyroidism Neuropathy Occult blood positive stool Positive fecal occult blood test Testicular hypofunction Patient Survey You may receive a survey via text or e-mail asking about your office visit. Please share your experience with us by completing your survey. We appreciate your feedback and thank you for choosing us for your care. Patient Portal You may access all of your results and other medical record information on our secure patient portal. If you are not signed up for this yet, please contact [facility] at [phone] to get signed up today. Language Information Language assistance services are available as needed. GENERAL SURGERY OFFICE/CLINI C NOTE Observed: 06/04/2025 2:27 PM Status: F Source: [facility] General Surgery Office/Clini c Note Chief Complaint consultation for anemia and positive occult stool HPI Staff 75 year old male presents on consultation from Dr. Gross for positive occult stool and anemia. Labs completed 05/06 with H/H 14.6 and 40.9. Denies dizziness, lightheadedness, SOB or fatigue. Denies abdominal or rectal pain. No rectal bleeding or change in bowel habits. Denies nausea, vomiting or weight loss. Never had colonoscopy in the past. No known family history of colon cancer. History of Present Illness 75 yo male with h/o htn, hyperlipidemia, neuropathy, hypothyroidism, Xqcbkme-Uavdj-Vjafk disease, referred for positive fecal occult blood test; denies change in bms or gross blood in stools, no abd complaints; abd operations significant for inguinal hernia repair; no previous colonoscopy; on regular asa, 2 daily, no NSAID use; no tobacco use; no fmhx of GI malignancy or IBD. Review of Systems PHQ Score Initial Depression Screen Score: 0 SCORE ROS - Provider Constitutional: no fever, no sweats, no weight loss. Eyes: yes glasses, no blurred vision, no visual loss. ENMT: no dentures, no hoarseness, no swallowing difficulties, no hearing loss, no ear infection(s), no nose bleeds. Cardiovascular: normal blood pressure, no chest pain, regular heartbeat, no heart murmur. Respiratory: no shortness of breath, no cough, no asthma, no wheezing. Gastrointestinal: no nausea, no vomiting, no diarrhea, no constipation, no blood in stool, no change in bowel habits, no abdominal pain, no hepatitis. Genitourinary: no kidney stones, no urine infection, no dysuria. Musculoskeletal: no pain, no weakness. Skin: no changing moles, no rash, no skin lumps. Neurologic: no seizures, no epilepsy, no headache. Psychiatric: no emotional or psychiatric problem. Heme/Lymph: no bleeding problems, no anemia, no blood clots, no transfusions. Allergy/Immunologic: no swollen lymph nodes/glands, no IV drug abuse. Other: Additional ROS info: Except as noted in the above Review of Systems and in the History of Present Illness, all other systems have been reviewed and are negative or noncontributory. Physical Exam Vitals & Measurements HR: 72(Peripheral) RR: 16 BP: 116/60 HT: 70 in HT: 177.8 cm WT: 247.579 lb WT: 112.3 kg BMI: 35.52 HEENT: normal conjunctiva, sclera clear, no scleral icterus, EOM intact, PERRLA, oral mucosa moist without lesions. Neck: trachea midline, no mass, symmetric, no thyromegaly or nodules, no adenopathy Respiratory: lungs CTA, respirations non labored. Cardiovascular: regular rate and rhythm, no murmur, no pedal edema or varicosities. Gastrointestinal: obese, soft, non distended, no tenderness, no masses, no palpable hernias, diastasis recti yes, no hepatosplenomegaly; normal bs Musculoskeletal: abnormal gait, digits and nails without infection, nodes, cyanosis, clubbing. Skin: no rashes, no lesions, no ulcers, no subcutaneous nodules, induration. Psychiatric/Neuro: oriented to time, place, person, judgement normal, affect appropriate for age, insight intact, no focal deficits. Tests: labs reviewed,, review of old records completed , Discussed surgical options, risks, and possible complications with patient. Assessment/Plan 1. Positive fecal occult blood test (R19.5: Other fecal abnormalities) plan colonoscopy under anesthesia, informed consent obtained. Follow-up No qualifying data available Problem List/Past Medical History Ongoing BMI 35.0-35.9,adult Ewcwrvd-Pjzrr-Uvxyw disease Chronic ulcer of left heel Class 3 obesity Hyperlipidemia Hypertension Hypothyroidism Neuropathy Occult blood positive stool Positive fecal occult blood test Testicular hypofunction Historical No qualifying data Procedure/Surgical History Amputation of fifth toe, Repair of inguinal hernia. Medications aspirin 325 mg Oral EC Tab, 650 mg= 2 tab(s), Oral, Daily doxazosin 4 mg Tab, 4 mg= 1 tab(s), Oral, Daily ferrous sulfate 325 mg Tab, 325 mg= 1 tab(s), Oral, BID levothyroxine 75 mcg (0.075 mg) Tab, 75 mcg= 1 tab(s), Oral, Daily magnesium oxide 500 mg oral tablet, 500 mg= 1 tab(s), Oral, Daily Allergies No Known Allergies No Known Medication Allergies Social History Alcohol Never., 06/04/2025 Substance Abuse Never., 06/04/2025 Tobacco Never (less than 100 in lifetime) Tobacco Use:. Never Smokeless Tobacco Use:., 06/04/2025 Family History Asthma: Sister. Heart disease: Father. Stroke: Mother. Immunizations Vaccine Date Status Comments SARS-CoV-2 (COVID-19) mRNA-1273 vaccine 09/10/2021 Recorded SARS-CoV-2 (COVID-19) Ad26 vaccine 12/26/2020 Recorded 2025-05-15: TPV65 Result Comment: Electronical ly Signed By: SHANTELL MUÑOZ, Chirag Armando\Date and Time Signed: 06/04/25 15:00 EDT ALLERGIES DATE TYPE / CODE NAME / CODE REACTION SEVERITY SOURCE [id number](SNOME D CT) No Known Allergies [facility] [id number](SNOME D CT) No Known Medication Allergies [facility] ENCOUNTERS ADMIT/DISCHARGE ACCOUNT NUMBER ADMITTING ENCOUNTER CLASS LOC ATION SOURCE 06/04/2025/ 5 [id number] [facility]: Exam 1 [facility] 05/07/2025 [id number] [facility] PAYERS ENCOUNTER GUARANTOR PAYER SUBSCRIBER SOURCE 06/04/2025 SILVINO STODDARDB: [id number] [facility] 21Tel: [phone] Primary Insurance:MEDICAREPol icy Number: [id number] Date:[id number] [address], [place] [address]IT: [facility] Secondary Insurance:MEDICAL MUTUALPolicy Number: [id number] Date:2025-05-07 SILVINO CHATMAN [facility]
--- OUTSIDE RECORDS SUMMARY | 2025-06-18 10:00 | XMS_ITS | Patient Health Record ---
Author Organization [facility] [place] Address [address] [place] [address] Care Team Providers Care Rebeamer Name Role Phone Renato Quinn Primary Care Provider [phone] Brandi Schneider Gaudencio Hyman [phone] Allergies No Known Allergies Results Component Value Reference Range Notes US abdomen complete Reviewed date:05/14/2025 04:06:22 PM Interpretation: Performing Lab: Notes/Report: Source Facility: [place] [address] Ultrasound Report Signed Patient: SILVINO OJEDA MR#: [id number] : 1950 Acct:[id number] Age/Sex: 75 / M ADM Date: 05/14/25 Loc: US Attending Dr: Marcella Salamanca M.D. Ordering Physician: Marcella Salamanca M.D. Date of Service: 05/14/25 Procedure(s): US abdomen complete Accession Number(s): [id number] cc: Marcella Salamanca M.D. [place] [id number] Patient Name: SILVINO OJEDA MRN: [id number] date: 1950 Sex: M Assigned Patient Location: US Current Patient Location: US Accession/Order Number: [id number] Exam Date: 05/14/2025 07:02 Report Date: 05/14/2025 [...] Mistry M.D. 05/14/2025 9:39 AM Dictation Location: [place] [address] Electronically authenticated by: [id number] Y Date: 05/14/2025 09:39 Dictated By: Jamilah Mistry M.D. Signed By: 05/14/25 0942 DD/ 0939 TD/TT: Shipping Clerk Crating: CBC AUTO DIFF Reviewed date:05/06/2025 01:12:23 PM Interpretation: Performing Lab: Notes/Report: [facility] , White Blood Count 5.2 4.0-11.0 10 [...] 0.00-0.03 10 3/uL Performing Lab: see note - [facility] FREE T3 Reviewed date:05/06/2025 01:12:23 PM Interpretation: Performing Lab: Notes/Report: [facility] , Free T3 2.58 2.18-3.98 pg/mL Performing Lab: see note [facility] GLYCOHEMOGLOBIN A1C Reviewed date:05/06/2025 01:12:23 PM Interpretation: Performing Lab: Notes/Report: [facility] , Glycohemoglobin A1C 5.7 4.5-6.2 % ACTION SUGGESTED > 7.0 ADA THERAPEUTIC TARGET < 7.0 ADA RECOMMENDED LIMIT 4.0 - 6.0 Estimated Average Glucose 117 Performing Lab: see note - [facility] INSULIN Reviewed date:05/07/2025 03:31:36 PM Interpretation: Performing Lab: Notes/Report: [facility] , Insulin 15.5 2.6-24.9 uIU/mL Performed at: [facility] [place] Identifier: Luis Ruby PhD, Phone: [phone] [address] [place], [place] [phone] Performing Lab: see note - [facility] LB LIPID PROFILE Reviewed date:05/06/2025 01:12:23 PM Interpretation: Performing Lab: Notes/Report: [facility] , Triglycerides 138 <=150 mg/dL Cholesterol 219 [...] RISK Performing Lab: see note ML - [facility] LB PROF 14(COMP METB) Reviewed date:05/06/2025 01:12:23 PM Interpretation: Performing Lab: Notes/Report: [facility] , Sodium 140 136-145 mmol/L Potassium 4.2 [...] 1.1 Performing Lab: see note ML - [facility] LB T4 Reviewed date:05/06/2025 01:12:23 PM Interpretation: Performing Lab: Notes/Report: [facility] , T4 Thyroxine 10.60 4.50-12.10 ug/dL Performing Lab: see note ML - [facility] LB TSH Reviewed date:05/06/2025 01:12:23 PM Interpretation: Performing Lab: Notes/Report: [facility] , Thyroid Stimulating Hormone 2.537 0.358-3.740 u IU/mL Performing Lab: see note ML - [facility] LB URIC ACID SERUM Reviewed date:05/06/2025 01:12:23 PM Interpretation: Performing Lab: Notes/Report: [facility] , Uric Acid 6.0 3.5-7.2 mg/dL Performing Lab: see note ML - [facility] LB Testosterone Reviewed date:05/07/2025 03:31:36 PM Interpretation: Performing Lab: Notes/Report: [facility] , Testosterone 150 264-916 ng/dL Adult male reference interval is based on a population of [place] Identifier: Luis Ruby PhD, Phone: [phone] [address] [place], [place] [phone] old. Reynaldo et.al. JCEM 2017,102;0196-2585. PMID: healthy nonobese males (BMI <30) between 19 and 39 years Performed at: - [facility] [place] [id number]. Performing Lab: see note - [facility] LB Occult Blood* Reviewed date:05/06/2025 01:56:05 PM Interpretation: Performing Lab: Notes/Report: [facility] , Occult Blood Positive Performing Lab: see note ML - [facility] LB XR foot RT min 3V Reviewed date:05/22/2025 11:09:08 AM Interpretation: Performing Lab: Notes/Report: Source Facility: [facility]-[address] [place] [address] [place] [address] XRay Report Signed Patient: SILVINO OJEDA MR#: [id number] : 1950 Acct:[id number] Age/Sex: 75 / M ADM Date: 05/21/25 Loc: RAD Attending Dr: Noelle ROLLE Ordering Physician: Noelle Paiz Date of Service: 05/21/25 Procedure(s): XR foot RT min 3V Accession Number(s): [id number] cc: Marcella Salamanca M.D.; Noelle Paiz [place] [id number] Patient Name: SILVINO OJEDA MRN: [id number] date: 1950 Sex: M Assigned Patient [facility]: [facility] Current Patient Location: Accession/Order Number: [id number] Exam Date: 05/21/2025 09:44 Report Date: 05/21/2025 [...] Mistry M.D. 05/21/2025 10:10 AM Dictation Location: [place] [address] Electronically authenticated by: [id number] Y Date: 05/21/2025 10:10 Dictated By: Jamilah Mistry M.D. Signed By: 05/21/25 1013 DD/ 1010 TD/TT: Shipping Clerk Crating: CBC AUTO DIFF Reviewed date:05/24/2025 12:57:28 PM Interpretation: Performing Lab: Notes/Report: [facility] , White Blood Count 4.1 4.0-11.0 10 3/uL Red Blood Count 4.59 4.70-6.10 10 6/uL Hemoglobin 14.5 14.0-18.0 g/dL Hematocrit 39.6 42.0-54.0 % Mean Corpuscular Volume 86.3 80.0-94.0 fL Mean Corpuscular Hemoglobin 31.6 25.9-34.0 pg Mean Corpuscular HGB Conc 36.6 29.9-35.2 g/dL Red Cell Distribution Width 12.2 11.0-15.0 % Platelet Count 126 150-450 10 3/uL Mean Platelet Volume 10.4 9.5-13.5 fL Neutrophils Percent Auto 61.1 43.0-75.0 % Lymphocytes Percent Auto 24.8 20.5-60.0 % Monocytes Percent Auto 9.0 1.7-12.0 % Eosinophils Percent Auto 3.6 0.9-7.0 % Basophils Percent Auto 0.5 0.2-2.0 % Immature Granulocytes Pct Auto 1.0 0.0-0.5 % Neutrophils Absolute Auto 2.5 1.4-6.5 10 3/uL Lymphocytes Absolute Auto 1.0 1.2-3.8 10 3/uL Monocytes Absolute Auto 0.4 0.3-0.8 10 3/uL Eosinophils Absolute Auto 0.2 0.0-0.7 10 3/uL Basophils Absolute Auto 0.0 0.0-0.1 10 3/uL Immature Granulocytes Abs Auto 0.04 0.00-0.03 10 3/uL Performing Lab: see note - [facility] LB PSA SCREENING Reviewed date:05/06/2025 01:12:23 PM Interpretation: Performing Lab: Notes/Report: [facility] , Prostate Specific Antigen Scrn 2.21 <=4.00 ng/mL Performing Lab: see note - [facility] LB CBC AUTO DIFF Reviewed date:07/03/2024 05:43:04 PM Interpretation: Performing Lab: Notes/Report: [facility] , White Blood Count 4.1 4.0-11.0 [...] 3/uL Performing Lab: see note ML - [facility] Reason For Referral Diagnosis 1 Anemia (D64.9) Diagnosis 2 Occult blood positiv e stool (R19.5) Referral Organization [facility] Referring Provider First Name Quinn Referring Provider Last Name Renato Referring Provider Speciality Family Med jorge Referred Provider Chirag Montaño Referred Provider Specialty General Surg yanira Referral Priority Routine Medications Medication SIG (Take, Route, Frequency, Duration) Notes Start Date End Date Status Levothyroxine Sodium 75 MCG take 1 table t by mouth every morning ON AN EMPTY STOMACH Orally Once a day; Duration: 90 days Active Ferrous Sulfate 325 (65 Fe) MG 1 tablet Orally twice daily; Duration: 30 days 05/07/2025 Active Doxazosin Mesylate 4 MG take 1 tablet by mouth once daily Orally Once a day; Duration: 90 days Active Aspirin 325 MG 2 [...] W/U Status Risk Notes Problem Tinea cruris (272839079) Tinea cruris (B35.6) Active confirmed Problem Thyrotoxicosis (29600748) Thyrotoxicosis , unspecified without thyrotoxic crisis or storm (E05.90) Active confirmed Problem Chronic ulcer of foot (241091707) Non-pressure chronic ulcer of left heel and midfoot with fat layer exposed (L97.422) Active confirmed Problem Non-pressure chronic ulcer of other part of right foot limited to breakdown of skin (L97.511) Active confirmed Problem Acquired deformity of right foot (disorder) (618690688) Other acquired deformities of right foot (M21.6X1) Active confirmed cavovarus contracture Problem Acquired deformity of left foot (disorder) (932871825) Other acquired deformities of left foot (M21.6X2) Active confirmed cavovarus contracture Problem Contracture of joint of right ankle (disorder) (003980553243814 ) Contracture, 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) Active confirmed Problem Contracture of joint of left ankle (disorder) (532746295435320 ) Contracture, left ankle (M24.572) Active confirmed Problem Contracture of joint of left foot (disorder) (821901767907679 ) Contracture, left foot (M24.575) Active confirmed Problem Instability of joint of right ankle (217616274494324 7) Other instability, right ankle (M25.371) Active confirmed Problem Pain of left knee joint (finding) (295206418931118 ) Pain in left knee (M25.562) Active confirmed Problem Closed fracture of phalanx of foot (43298430) Nondisplaced unspecified fracture of left great toe, initial encounter for closed fracture (S92.405A) Active confirmed Problem Hypertension (39342085) HTN (hypertension) (I10) Active confirmed Problem Dyspnea on exertion (85981521) Dyspnea on exertion (R06.09) Active confirmed Problem Anemia (072354535) Anemia (D64.9) Active confirmed Problem Neuropathy (302348360) Neuropathy (G62.9) Active confirmed Problem Tinnitus (16937728) Tinnitus (H93.19) Active confirmed Problem Edema (057867081) Edema leg (R60.0) Active confirmed Problem Hemorrhoids (72490239) Hemorrhoids (K64.9) Active confirmed Problem Abnormal feces (624362659) Occult blood positive stool (R19.5) Active confirmed Problem Overweight (777081855) Over weight (E66.3) Active confirmed Problem Ganglion cyst (63216023) Ganglion cyst (M67.40) Active confirmed Problem Erectile dysfunction (disorder) (829225944) Impotence (N52.9) Active confirmed Problem Acquired cavovarus deformity of right foot (499051517899608 4) 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 Problem 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 Problem Leukocytosis (362604012) Elevated white blood cell count (D72.829) Active confirmed Problem Essential hypertension (86697252) Essential (primary) hypertension (I10) Active confirmed Problem Sexual dysfunction (85621716) Sexual dysfunction (R37) Active confirmed Problem Inguinal hernia (disorder) (243930650) Hernia, inguinal (K40.90) Active confirmed Problem 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 Problem Xanthelasma (34797220) Xanthelasma (H02.60) Active confirmed Problem Acquired hammer toe of right foot (171267844309126 5) Hammertoe of right foot (M20.41) Active confirmed Problem 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 Problem Decreased testosterone level (578180719) Decreased testosterone level (R79.89) Active confirmed Problem Decubitus ulcer of left foot, stage 1 (L89.891) Active confirmed Problem Chronic ulcer of right heel (disorder) (563492512652390 02) Chronic ulcer of right heel limited to breakdown of skin (L97.411) Active confirmed Problem Ulcer of right foot with necrosis of muscle (L97.513) Active confirmed Vital Signs Blood pressure diastolic 86 mm Hg 05/06/2025 Height 70 in 05/06/2025 Blood pressure systolic 144 mm Hg 05/06/2025 Weight 244.8 lbs 05/06/2025 BMI 35.12 kg/m2 05/06/2025 Procedures Procedure Date Ordered Date Performed Result Body Sit e Cerumen Removal - performed 05/06/2025 N/A Encounters Encounter Location Date Provider Diagnosis [facility] [address] [place] [address] 05/06/2025 Quinn Salamanca Decreased testostero ne level R79.89 ; Essential (primary) hypertension I10 ; Neuropathy G62.9 ; Cerumen impaction H61.20 and Bilateral impacted cerumen H61.23 [facility] [address] [place] [address] 05/06/2025 Quinn Hoy Anemia D64.9 and Elevated liver enzymes R74.8 [facility] [address] [place] [address] 05/06/2025 Quinn Hoy Anemia D64.9 and Occ ult blood positive stool R19.5 [facility] [address] [place] [address] 05/07/2025 Quinn Hoy [facility] [address] [place] [address] 05/14/2025 Quinn Hoy [facility] [address] [place] [address] 05/24/2025 Quinn Hoy Elevated white blood cell count D72.829 [facility] [address] [place] [address] 08/13/2024 Quinn Hoy Dyspnea on exertion R06.09 [place] [address] [place] [address] 02/04/2025 Quinn Hoy Dyspnea on exertion R06.09 Assessments Encounter Date Diagnosis (ICD Code) Assessment Notes Treatment Notes Treatment Clinical Notes Section Notes 05/06/2025 Essential (primary) hypertension (ICD-10 - I10) not bad today - didnt cristian meds 05/06/2025 Decreased testosterone level (ICD-10 - R79.89) checking level 08/13/2024 Dyspnea on exertion (ICD-10 - R06.09) 02/04/2025 Dyspnea on exertion (ICD-10 - R06.09) 05/06/2025 Anemia (ICD-10 - D64.9) 05/06/2025 Elevated liver enzymes (ICD-10 - R74.8) 05/06/2025 Anemia (ICD-10 - D64.9) 05/24/2025 Elevated white blood cell count (ICD-10 - D72.829) 05/06/2025 Neuropathy (ICD-10 - G62.9) stabel no [...] and TSH 04/20/2023 CBC W/AUTO DIFF 05/06/2025 CBC W/AUTO DIFF 05/24/2025 PSA, TOTAL 04/20/2024 STOOL OCCULT BLOOD 04/20/2024 STOOL OCCULT BLOOD 05/06/2025 XR Hand 3 Views Right 05/03/2024 CBC AUTO DIFF 05/01/2024 CBC AUTO DIFF 05/14/2024 TESTOSTERONE, TOTAL 05/06/2025 THYROID PROFILE WITH TSH 05/25/2023 THYROID PANEL (T4/TSH/FREE T3) THYROID PANEL (T4/TSH/FREE T3) PSA, SCREENING 05/06/2025 CMP (COMP MET TORRES) w/eGFR CKD-EPI 2024 CBC WITH DIFF 05/06/2025 Next Appt Details Provider Name:Quinn Salamanca, 09:15:00 AM, [address] [place], [address], Insurance Providers Payer Name Payer Address Payer Phone Subscriber Number Group Number Insured Name Patient Relationship to Insured Coverage Start Date Coverage End Date MEDICARE [place] [address] [id number] Silvino Ojeda Self - patient is the insured 7 [employer] MEDICARE SUPPLE[employer] T [address] [place] [address] [id number] Silvino Ojeda Self - patient is the insured 7 Medical (General) History Medical History History ICD Code hypertension hyperlipidemia neuropathy 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
--- OUTSIDE RECORDS SUMMARY | 2025-06-18 10:00 | XMS_ITS | Clinical Summary ---
Author Organization [facility] Address [address] [place] [address] Care Team Providers Care Sweatband Decorating Machine Operator Name Role Phone Unavailable Primary Care Provider [...]
--- OUTSIDE RECORDS SUMMARY | 2025-06-18 10:01 | XMS_ITS | Patient Health Record ---
Author Organization [facility] Address [address] [place] [address] Care Team Providers Care Flight Reservations Manager Name Role Phone Brock Gross Primary Care Provider Olvin Morgan Unavailable [phone] HernandoLudinle Unavailable Reason For Referral No Information Medications Medication [...] (Standard) Question Answer Notes Tobacco use: Nonsmoker Encounters Encounter Location Date Provider Diagnosis [facility] Office [address] [place] [address] [place] [address] 07/09/2024 Nena Villagomez Inclusion cyst L72.0 Assessments Encounter Date Diagnosis (ICD Code) Assessment Notes Treatment Notes Treatment Clinical Notes Section Notes 07/09/2024 Inclusion cyst (ICD-10 - L72.0) 07/09/2024 Other Patient is doing well and has cyst has resolved at this time. We discussed that he could try NSAIDs if it returns again. He will follow-up on an as-needed basis. Plan Of Treatment Pending Test Test Name Order Date SCC- HAND 3 VIEW RIGHT [id number] 05/28/2024 Insurance Providers Payer Name Payer Address Payer Phone Subscriber Number Group Number Insured Name Patient Relationship to Insured Coverage Start Date Coverage End Date Medicare [address] [id number] [id number] SILVINO MARVIN Self - patient is the insured Medical [facility] [address] [place] [phone] [id number] SILVINO MARVIN Self - patient is the insured
== END 2025-06-18 09:56 | disposition home or self-care (01) ==
LOC: WC 09:55
PROVIDERS: PCP Family Medicine; Visit Provider Physician Assistant
DX: L97.412 Non-pressure chronic ulcer of right heel and midfoot with fat layer exposed (principal); L89.896 Pressure-induced deep tissue damage of other site
CPT/HCPCS: 11043

== ENCOUNTER 2025-06-27 15:14 | Outpatient (OUT) | payer MEDICARE, OTHER, SELFPAY ==
--- OUTSIDE RECORDS SUMMARY | 2025-06-27 15:18 | XMS_ITS | CCD ---
Author Organization [facility] Care Team Providers Care Facility Practice Specialist Name Role Phone CHEIKH ., DR [...] Unavailable ROSCOE II, BENITA Consulting Unavailable BURGESSTOMMY SYLVESTER Consulting Unavailable HOY ., DR NARANJO Primary Care Unavailable HOY ., DR NARANJO Consulting Unavailable HOY ., DR NARANJO Attending Unavailable HOY ., DR NARANJO Admitting Unavailable HOY ., DR NARANJO Primary Care Unavailable HOY ., DR NARANJO Consulting Unavailable HOY ., DR NARANJO Attending Unavailable HOY ., DR NARANJO Admedy Unavailable HOY ., DR NARANJO Primary Care [...] Consulting Unavailable HIGHLANDER, PETER D Attending Unavailable IVELISSE ORNELAS Admitting Unavailable MD Marcella Gross Attending Provider [phone] Marcella Gross Attending Unavailable Marcella Gross Admitting Unavailable Marcella Gross Primary Care Physician Chirag STINSON Attending Unavailable Marcella Gross Referring Unavailable Allergies Allergy Classification Reported Allergen(s) Allergy Type Date of Onset Reaction(s) Facility (1 source) No Known Medication Allergies; Translations: [No Known Medication Allergies] Propensity to adverse reactions (disorder) [facility] Repository Medications Current Medications Medication Drug Class(es) Dates Sig (Normalized) Sig (Original) aspirin 325 mg delayed release oral tablet (1 source) Platelet Aggregation Inhibitor, Nonsteroidal Anti-inflammatory Drug Start: 05-15-2025 take 2 tablets by mouth once daily aspirin 325 mg Oral EC Tab 650 mg = 2 tab(s), Oral, Daily, Refills(s) 0 Start Date: 05/15/25 Status: Ordered Repeat number: 1 doxazosin 4 mg oral tablet (3 sources) alpha-Adrenergic Isela Start: 05-15-2025 take 1 tablet by mouth once daily doxazosin 4 mg Tab 4 mg = 1 tab(s), Oral, Daily, Refills(s) 0 Start Date: 05/15/25 Status: Ordered Repeat number: 1 Start: 04-06-2024 Doxazosin Acti ve MG PO April 06, 2024 12:00am ferrous sulfate 325 mg oral tablet (1 source) Start: 06-04-2025 take 1 tablet by mouth twice daily ferrous sulfate 325 mg Tab 325 mg = 1 tab(s), Oral, BID, Refills(s) 0 Start Date: 06/04/25 Status: Ordered Repeat number: 1 levothyroxine sodium 0.075 mg oral tablet (3 sources) l-Thyroxi ne Start: 05-15-2025 take 1 tablet by mouth once daily levothyroxine 75 mcg (0.075 mg) Tab 75 mcg = 1 tab(s), Oral, Daily, Refills(s) 0 Start Date: 05/15/25 Status: Ordered Repeat number: 1 Start: 04-06-2024 Levothyroxine Active MCG PO April 06, 2024 12:00am magnesium oxide 500 mg oral tablet (3 sources) Start: 06-04-2025 take 1 tablet by mouth once daily magnesium oxide 500 mg oral tablet 500 mg = 1 tab(s), Oral, Daily, Refills(s) 0 Start Date: 06/04/25 Status: Ordered Repeat number: 1 Start: 04-06-2024 take 500 mg by mouth once nicki y Magnesium Oxide Active 500 MG PO Daily [...] Onset: 02-06-2023 Chronic Disorders of lipid metabolism (2 sources) Hyperlipidemia, unspecified; Translations: [Hyperlipidemia] Onset: 02-16-2023 05-15-2025 Chronic Essential hypertension (2 sources) Essential (primary) hypertension; Translations: [Hypertensive disorder] Onset: 02-16-2023 05-15-2025 Chronic Hypertension with complications and secondary hypertension (1 source) Hypertensive heart disease with heart failure; Translations: [HTN HEART DISEASE W/HEART FAIL] Onset: 12-11-2022 Chronic Inflammation; infection of eye (except that caused by tuberculosis or sexually transmitteddisease) (4 sources) Bacterial conjunctivitis; Translations: [Unspecified conjunctivitis] 04-06-2024 Episodic Other aftercare (1 source) Other terminal manager (current) drug therapy; Translations: [OTH ENVIRONMENTAL ENGINEERING TECHNICIAN CURRENT DRUG THERAPY] Onset: 02-16-2023 Episodic Other endocrine disorders (1 source) 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 Other gastrointestinal disorders (1 source) Abnormal feces; Translations: [Other fecal abnormalities] Onset: 06-04-2025 Episodic Other gastrointestinal disorders (2 sources) Occult blood in stools 05-15-2025 Episodic Other lower respiratory disease (4 sources) Dyspnea, unspecified; Translations: [DYSPNEA UNSPECIFIED] Onset: 01-03-2023 Episodic Other lower respiratory disease (4 sources) Other forms of dyspnea; Translations: [OTHER FORMS OF DYSPNEA] Onset: 12-21-2022 Episodic Other nervous system disorders (1 source) Polyneuropathy, unspecified; Translations: [POLYNEUROPATHY UNSPECIFIED] Onset: 02-16-2023 Chronic Other nervous system disorders (1 source) 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 Other nervous system disorders (1 source) Neuropathy 05-15-2025 Chronic Other nutritional; endocrine; and metabolic disorders (1 source) Body mass index 30+ - obesity 06-04-2025 Chronic Other nutritional; endocrine; and metabolic disorders (1 source) Obese class III 05-15-2025 Chronic Other skin disorders (1 source) Epidermal thickening, unspecified; Translations: [EPIDERMAL THICKENING UNSPECIFIED] Onset: 02-16-2023 Episodic Residual codes; unclassified (1 source) Localized edema; Translations: [LOCALIZED EDEMA] Onset: 01-06-2023 Episodic Thyroid disorders (5 sources) Hypothyroidism, unspecified; Translations: [Hypothyroidism] Onset: 01-07-2023 Chronic Unclassified (1 source) Chronic ulcer of left heel 05-15-2025 Past or Other Problems Problem Classification Problem [...] Test Name Value Interpretation Reference Range Facility Ambulatory Visit Summaryon 0 06-04-2025 Ambulatory Visit Summary Ambulatory Visit Summary SILVINO OJEDA :1950 Visit Date:06/04/2025 Ambulatory Visit Instructions Your Diagnosis Positive fecal occult blood test Your Care Team Attending Physician - SHANTELL MUÑOZ, Chirag Lopez Primary Care Physician - Marcella Gross MD Referring Physician - Marcella Gross MD This Is Your Medications List [...] are currently receiving treatment for. BMI 35.0-35.9,adult Eefbmuq-Qzdxn-Bhlrw disease Chronic ulcer of left heel Class [...] signed up for this yet, please contact [facility] at [phone] to get signed up today. Language Information Language assistance services are available as needed. Normal Lev [facility] [place] 04-27-2024 L Specimen: Received: 04/30/24 Status: SOUT Req Num: [id number] Spec Type: Impression Subm Dr: Marcella Gross MD Tissues: PATHPER Procedures: PATHREVIEW Age/ Patient Sex Location Account Attending Physician Silvino Ojeda 74/M LABELL [id number] Marcella Gross MD SPEC NUM: [id number] RECD: 04/30/24 STATUS: CASS REQ NUM: [id number] KAREN: 04/27/[address]: Marcella Gross MD ENTERED: 04/30/24 [facility] DR: SPEC TYPE: Impression DEPT: ALEXSANDRA Cervantes ENTERED BY: [id number] RECV BY: [id number] ORDERED: PATHREVIEW ORDERED: PATHREVIEW Pathologist Review Abnormal [...] shifted granulocytes, or granulocytic dysplasia observed CPT: 08465 -------- -------- Specimen: [id number] Received: 04/30/24 Status: CASS Moore Num: [id number] Spec Type: Impression Subm Dr: Marcella Gross MD Tissues: PATHPER Procedures: PATHREVIEW -------- Patient: Silvino Ojeda [id number] (Continued) -------- Signed (signature on file) Celia Irving MD 04/30/241945 Normal [facility] CULTURE OTHERon 02-11-2023 CULTURE OTHER [...] Trimethoprim/Sulfamet hoxazole <=10 S F Normal [facility] Comment on above: Performed By: #### L IPID, T4, TSH, FT3, CMP #### [facility] [address] [address] [address] Maggy Irving FUNGAL CULTUREon 02-09-2023 Fungus Stain Final report Normal [facility] Comment on above: Performed By: #### L IPID, T4, TSH, FT3, CMP #### [facility] [address] [place] [address] Dr. Maggy Irving Result 1 Comment Normal [facility] Comment on above: Result Comment: SUDHIR/ Calcofluor preparation: no fungus observed. Performed By: #### L IPID, T4, TSH, FT3, CMP #### [facility] [address] [place] [address] Dr. Maggy Irving ACID FAST SMEAR AND CXon Acid Fast Smear Negative Normal [facility] Comment on above: Performed By: #### A FB #### [facility] [address] [place] [address] Dr. Maggy Irving [employer] Specimen Processing Tissue Grinding [facility] Comment on above: Performed By: #### A FB #### [facility] [address] [place] [address] Dr. Maggy Irving CULTURE ANAEROBICon 02-08-20 CULTURE ANAEROBIC Isolate 1 Finegoldia magna Light growth of Normal [facility] Comment on above: Result Comment: EVID ENCE BASED PRACTICE BY [facility] HAS DEMONSTRATED THAT FINEGOLDIA SPECIES ARE ROUTINELY SUSCEPTIBLE TO PIPERACILLIN-TAZOBACTAM, CEFOXITIN, ERTAPENEM, IMIPENEM METRONIDAZOLE AND VARIABLY RESISTANT TO CLINDAMYCIN. Performed By: #### L IPID, T4, TSH, FT3, CMP #### [facility] [address] [place] [address] Dr. Maggy MENDOZA STAINon 02-07-2023 COMMENTS NO ORGANISMS OBSERVED Normal [facility] Comment on above: Performed By: #### G STAIN #### [facility] [address] [place] [address] Dr. Maggy Irving DIPHTHEROIDS Normal [facility] Comment on above: Performed By: #### G STAIN #### [facility] [address] [place] [address] Dr. Maggy Irving EPITHELIALS Normal [facility] Comment on above: Performed By: #### G STAIN #### [facility] [address] [address] [address] Maggy Irving FUNGAL ELEMENTS Normal [facility] Comment on above: Performed By: #### G STAIN #### [facility] [address] [place] [address] Dr. Maggy Irving GRAM NEG BACILLI Normal [facility] Comment on above: Performed By: #### G STAIN #### [facility] [address] [place] [address] Dr. Maggy MENDOZA NEG DIPPLOCOCCI Normal [facility] Comment on above: Performed By: #### G STAIN #### [facility] [address] [place] [address] Dr. Maggy MENDOZA POS BACILLI Normal [facility] Comment on above: Performed By: #### G STAIN #### [facility] [address] [place] [address] Dr. Maggy Irving GRAM POSITIVE COCCI Normal [facility] Comment on above: Performed By: #### G STAIN #### [facility] [address] [place] [address] Dr. Maggy Irving GRAM STAIN SOURCE 5th Metatarsal Bone Normal [facility] Comment on above: Performed By: #### G STAIN #### [facility] [address] [place] [address] Dr. Maggy Irving GS_DIPTH Normal [facility] Comment on above: Performed By: #### G STAIN #### [facility] [address] [place] [address] Dr. Maggy Irving WBC RARE Normal [facility] Comment on above: Performed By: #### G STAIN #### [facility] [address] [place] [address] Dr. Maggy Irving POINT OF CARE GLUCOSEon 01-18 Glucose [Mass/Vol] 114 mg/dL Critically high 74-106 [facility] Comment on above: Performed By: #### P OCGLUC #### [facility] [address] [place] [address] Dr. Maggy Irving Glucose [Mass/Vol] 122 mg/dL Critically high 74-106 [facility] Comment on above: Performed By: #### P OCGLUC #### [facility] [address] [place] [address] Dr. Maggy Irving PROF CHEM 8 (BAS METB)on Anion gap [Moles/Vol] 12.0 mmol/L Normal [facility] Comment on above: Performed By: #### L IPID, T4, TSH, FT3, CMP #### [facility] [address] [place] [address] Dr. Maggy Irving Calcium [Mass/Vol] 8.7 mg/dL Normal 8.5-10.1 [facility] Comment on above: Performed By: #### L IPID, T4, TSH, FT3, CMP #### [facility] [address] [place] [address] Dr. Maggy Irving Chloride [Moles/Vol] 104 mmol/L Normal 98-107 [facility] Comment on above: Performed By: #### L IPID, T4, TSH, FT3, CMP #### [facility] [address] [place] [address] Dr. Maggy Irving CO2 [Moles/Vol] 28.1 mmol/L Normal 21.0-32.0 [facility] Comment on above: Performed By: #### L IPID, T4, TSH, FT3, CMP #### [facility] [address] [place] [address] Dr. Maggy Irving Creatinine [Mass/Vol] 0.80 mg/dL Normal 0.70-1.30 [facility] Comment on above: Performed By: #### L IPID, T4, TSH, FT3, CMP #### [facility] [address] [address] [address] Maggy Irving EGFR-AF AZERBAIJANI >60 Normal >=60 [facility] Comment on above: Performed By: #### L IPID, T4, TSH, FT3, CMP #### [facility] [address] [place] [address] Dr. Maggy Irving EGFR-NON AF AZERBAIJANI >60 Normal >=60 [facility] Comment on above: Performed By: #### L IPID, T4, TSH, FT3, CMP #### [facility] [address] [place] [address] Dr. Maggy Irving Glucose [Mass/Vol] 129 mg/dL Critically high 74-106 [facility] Comment on above: Performed By: #### L IPID, T4, TSH, FT3, CMP #### [facility] [address] [place] [address] Dr. Maggy Irving Potassium [Moles/Vol] 4.1 mmol/L Normal 3.5-5.1 [facility] Comment on above: Performed By: #### L IPID, T4, TSH, FT3, CMP #### [facility] [address] [place] [address] Dr. Maggy Irving Sodium [Moles/Vol] 140 mmol/L Normal 136-145 [facility] Comment on above: Performed By: #### L IPID, T4, TSH, FT3, CMP #### [facility] [address] [place] [address] Dr. Maggy Irving Urea nitrogen [Mass/Vol] 20.0 mg/dL Critically high 7.0-18.0 [facility] Comment on above: Performed By: #### L IPID, T4, TSH, FT3, CMP #### [facility] [address] [place] [address] Dr. Maggy Irving Urea nitrogen/Creatinine [Mass ratio] 25.0 mg/mg Normal [facility] Comment on above: Performed By: #### L IPID, T4, TSH, FT3, CMP #### [facility] [address] [address] [address] Maggy Irving FREE T3on 01-07-2023 FREE T3 3.24 pg/mlL Normal 2.18-3.98 [facility] Comment on above: Performed By: #### L IPID, T4, TSH, FT3, CMP #### [facility] [address] [address] [address] Maggy Irving T4on 01-07-2023 T4 [Mass/Vol] 9.10 ug/dL Normal 4.50-12.10 [facility] Comment on above: Performed By: #### L IPID, T4, TSH, FT3, CMP #### [facility] [address] [address] [address] Maggy Irving TSHon 01-07-2023 TSH 5.957 uIU/mL Critically high 0.358-3.740 [facility] Comment on above: Performed By: #### L IPID, T4, TSH, FT3, CMP #### [facility] [address] [address] [address] Maggy Irving NM STRESS/REST MULTIon 01-03 NM STRESS/REST MULTI Patient: SILVINO OJEDA Exam Date: 01/03/2023 : 1950 Gender:M Ordering : DR MARCELLA GROSS . Admission #: [id number] Family : Order #: [id number] CLICK HERE TO VIEW EXAM RADIOLOGY REPORT [...] study was normal per attending physician Dr. Samsa . For more details please see separate [...] Khanna M.D. on 01/04/2023 at 07:45 Normal [facility] ECHOCARDIO M/2D COMPLETEon 0 12-21-2022 ECHOCARDIO M/2D COMPLETE Patient: SILVINO OJEDA Exam Date: 12/21/2022 : 1950 Gender:M Ordering : DR MARCELLA GROSS . Admission #: [id number] Family : Order #: [id number] CLICK HERE TO VIEW EXAM ECHOCARDIOGRAM REPORT [...] Ling M.D. on 12/23/2022 at 18:05 Normal [facility] BNPon 12-07-2022 Natriuretic peptide B (Bld) [Mass/Vol] 37.0 pg/mL Normal <=900.0 [facility] Comment on above: Performed By: #### L IPID, T4, TSH, FT3, CMP #### [facility] [address] [place] [address] Dr. Maggy Irving CBC AUTO DIFFon 12-07-2022 BASO # 0.0 103/ul Normal 0.0-0.1 [facility] Comment on above: Performed By: #### L IPID, T4, TSH, FT3, CMP #### [facility] [address] [place] [address] Dr. Maggy Irving Basophils/100 WBC (Bld) 0.2 % Normal 0.2-2.0 [facility] Comment on above: Performed By: #### L IPID, T4, TSH, FT3, CMP #### [facility] [address] [place] [address] Dr. Maggy Irving EO # 0.2 103/ul Normal 0.0-0.7 [facility] Comment on above: Performed By: #### L IPID, T4, TSH, FT3, CMP #### [facility] [address] [place] [address] Dr. Maggy Irving Eosinophils/100 WBC (Bld) 3.7 % Normal 0.9-7.0 [facility] Comment on above: Performed By: #### L IPID, T4, TSH, FT3, CMP #### [facility] [address] [place] [address] Dr. Maggy Irving Erythrocyte distribution width (RBC) [Ratio] 11.9 % Normal 11.0-15.0 [facility] Comment on above: Performed By: #### L IPID, T4, TSH, FT3, CMP #### [facility] [address] [place] [address] Dr. Maggy Irving Hematocrit (Bld) [Volume fraction] 39.7 % Critically low 42.0-54.0 [facility] Comment on above: Performed By: #### L IPID, T4, TSH, FT3, CMP #### [facility] [address] [place] [address] Dr. Maggy Irving Hemoglobin (Bld) [Mass/Vol] 14.0 g/dL Normal 14.0-18.0 [facility] Comment on above: Performed By: #### L IPID, T4, TSH, FT3, CMP #### [facility] [address] [place] [address] Dr. Maggy Irving IG # 0.02 10e3/ul Normal 0.00-0.03 [facility] Comment on above: Performed By: #### L IPID, T4, TSH, FT3, CMP #### [facility] [address] [place] [address] Dr. Maggy Irving IG % 0.5 % Normal 0.0-0.5 [facility] Comment on above: Performed By: #### L IPID, T4, TSH, FT3, CMP #### [facility] [address] [place] [address] Dr. Maggy Irving LYMPH # 0.9 103/ul Critically low 1.2-3.8 [facility] Comment on above: Performed By: #### L IPID, T4, TSH, FT3, CMP #### [facility] [address] [place] [address] Dr. Maggy Irving Lymphocytes/100 WBC (Bld) 21.1 % Normal 20.5-60.0 [facility] Comment on above: Performed By: #### L IPID, T4, TSH, FT3, CMP #### [facility] [address] [place] [address] Dr. Maggy Irving MANUAL DIFF REQ NO Normal [facility] Comment on above: Performed By: #### L IPID, T4, TSH, FT3, CMP #### [facility] [address] [place] [address] Dr. Maggy Irving MCH (RBC) [Entitic mass] 30.5 pg Normal 25.9-34.0 [facility] Comment on above: Performed By: #### L IPID, T4, TSH, FT3, CMP #### [facility] [address] [place] [address] Dr. Maggy Irving MCHC (RBC) [Mass/Vol] 35.3 g/dL Critically high 29.9-35.2 [facility] Comment on above: Performed By: #### L IPID, T4, TSH, FT3, CMP #### [facility] [address] [place] [address] Dr. Maggy Irving MCV (RBC) [Entitic vol] 86.5 fL Normal 80.0-94.0 [facility] Comment on above: Performed By: #### L IPID, T4, TSH, FT3, CMP #### [facility] [address] [place] [address] Dr. Maggy Irving MONO # 0.4 103/ul Normal 0.3-0.8 [facility] Comment on above: Performed By: #### L IPID, T4, TSH, FT3, CMP #### [facility] [address] [place] [address] Dr. Maggy Irving Monocytes/100 WBC (Bld) 8.7 % Normal 1.7-12.0 [facility] Comment on above: Performed By: #### L IPID, T4, TSH, FT3, CMP #### [facility] [address] [place] [address] Dr. Maggy Irving NEUT # 2.9 103/ul Normal 1.4-6.5 [facility] Comment on above: Performed By: #### L IPID, T4, TSH, FT3, CMP #### [facility] [address] [place], [place] [id number] Dr. Maggy Irving Neutrophils/100 WBC (Bld) 65.8 % Normal 43.0-75.0 [facility] Comment on above: Performed By: #### L IPID, T4, TSH, FT3, CMP #### [facility] [address] [place] [address] Dr. Maggy Irving Platelet mean volume (Bld) [Entitic vol] 9.9 fL Normal 9.5-13.5 [facility] Comment on above: Performed By: #### L IPID, T4, TSH, FT3, CMP #### [facility] [address] [place] [address] Dr. Maggy Irving PLT 128 103/ul Critically low 150-450 [facility] Comment on above: Performed By: #### L IPID, T4, TSH, FT3, CMP #### [facility] [address] [place] [address] Dr. Maggy Irving RBC 4.59 106/ul Critically low 4.70-6.10 [facility] Comment on above: Performed By: #### L IPID, T4, TSH, FT3, CMP #### [facility] [address] [place] [address] Dr. Maggy Irving WBC 4.4 103/ul Normal 4.0-11.0 [facility] Comment on above: Performed By: #### L IPID, T4, TSH, FT3, CMP #### [facility] [address] [place] [address] Dr. Maggy Irving FREE THYROXINE INDEX T7on FTI 2.72 Normal 1.30-4.50 [facility] Comment on above: Performed By: #### L IPID, T4, TSH, FT3, CMP #### [facility] [address] [place] [address] Dr. Maggy Irving T3U 34.0 % Normal 33.0-40.0 [facility] Comment on above: Performed By: #### L IPID, T4, TSH, FT3, CMP #### [facility] [address] [place] [address] Dr. Maggy Irving T4 [Mass/Vol] 8.00 ug/dL Normal 4.50-12.10 [facility] Comment on above: Performed By: #### L IPID, T4, TSH, FT3, CMP #### [facility] [address] [address] [address] Maggy Irving IRONon 12-07-2022 Iron [Mass/Vol] 134.0 ug/dL Normal 65.0-175.0 [facility] Comment on above: Performed By: #### L IPID, T4, TSH, FT3, CMP #### [facility] [address] [address] [address] Maggy Irving LIPID PROFILEon 12-07-2022 CHOL-HDL RATIO NORM SEE BELOW Normal [facility] Comment on above: Result Comment: 3.3 - 4.4 LOW RISK 4.4 - 7.1 AVERAGE RISK 7.1 - 11.0 MODERATE RISK >11.0 HIGH RISK Performed By: #### L IPID, T4, TSH, FT3, CMP #### [facility] [address] [address] [address] Maggy Irving Cholesterol [Mass/Vol] 180 mg/dL Normal <=200 [facility] Comment on above: Performed By: #### L IPID, T4, TSH, FT3, CMP #### [facility] [address] [address] [address] Maggy Irving Cholesterol in HDL [Mass/Vol] 37 mg/dL Critically low 40-60 [facility] Comment on above: Performed By: #### L IPID, T4, TSH, FT3, CMP #### [facility] [address] [address] [address] Maggy Irving Cholesterol in LDL [Mass/Vol] 95.2 mg/dL Normal [facility] Comment on above: Performed By: #### L IPID, T4, TSH, FT3, CMP #### [facility] [address] [address] [address] Maggy Irving Cholesterol.total/Ch olesterol in HDL [Mass ratio] 4.9 {ratio} Normal [facility] Comment on above: Performed By: #### L IPID, T4, TSH, FT3, CMP #### [facility] [address] [address] [address] Maggy Irving HDL NORMAL > or = 60 mg/dl - LO W CARDIOVASCULAR RISK <40 mg/dl - HIGH CARDIOVASCULAR RISK Normal [facility] Comment on above: Performed By: #### L IPID, T4, TSH, FT3, CMP #### [facility] [address] [address] [address] Maggy Irving LDL CALC NORMAL SEE BELOW Normal [facility] Comment on above: Result Comment: <100 mg/dl OPTIMAL 100 - 129 mg/dl NEAR OR ABOVE OPTIMAL 130 - 159 mg/dl BORDERLINE HIGH 160 - 189 mg/dl HIGH >190 mg/dl VERY HIGH Performed By: #### L IPID, T4, TSH, FT3, CMP #### [facility] [address] [address] [address] Maggy Irving Triglyceride [Mass/Vol] 239 mg/dL Critically high <=150 [facility] Comment on above: Performed By: #### L IPID, T4, TSH, FT3, CMP #### [facility] [address] [address] [address] Maggy Irving VLDL CALC 47.8 mg/dL Normal [facility] Comment on above: Performed By: #### L IPID, T4, TSH, FT3, CMP #### [facility] [address] [address] [address] Maggy Irving PROF 14(COMP METB)on 023 Albumin [Mass/Vol] 3.8 g/dL Normal 3.4-5.0 [facility] Comment on above: Performed By: #### L IPID, T4, TSH, FT3, CMP #### [facility] [address] [address] [address] Maggy Irving Albumin/Globulin [Mass ratio] 1.1 {ratio} Normal [facility] Comment on above: Performed By: #### L IPID, T4, TSH, FT3, CMP #### [facility] [address] [address] [address] Maggy Irvnig ALP [Catalytic activity/Vol] 53 U/L Normal 46-116 [facility] Comment on above: Performed By: #### L IPID, T4, TSH, FT3, CMP #### [facility] [address] [place] [address] Dr. Maggy Irving ALT [Catalytic activity/Vol] 43 U/L Normal 16-63 [facility] Comment on above: Performed By: #### L IPID, T4, TSH, FT3, CMP #### [facility] [address] [place] [address] Dr. Maggy Irving Anion gap [Moles/Vol] 12.2 mmol/L Normal [facility] Comment on above: Performed By: #### L IPID, T4, TSH, FT3, CMP #### [facility] [address] [place] [address] Dr. Maggy Irving AST [Catalytic activity/Vol] 22 U/L Normal 15-37 [facility] Comment on above: Performed By: #### L IPID, T4, TSH, FT3, CMP #### [facility] [address] [place] [address] Dr. Maggy Irving Bilirubin [Mass/Vol] 0.6 mg/dL Normal 0.2-1.0 [facility] Comment on above: Performed By: #### L IPID, T4, TSH, FT3, CMP #### [facility] [address] [place] [address] Dr. Maggy Irving Calcium [Mass/Vol] 8.9 mg/dL Normal 8.5-10.1 [facility] Comment on above: Performed By: #### L IPID, T4, TSH, FT3, CMP #### [facility] [address] [place] [address] Dr. Maggy Irving Chloride [Moles/Vol] 104 mmol/L Normal 98-107 [facility] Comment on above: Performed By: #### L IPID, T4, TSH, FT3, CMP #### [facility] [address] [place] [address] Dr. Maggy Irving CO2 [Moles/Vol] 28.8 mmol/L Normal 21.0-32.0 [facility] Comment on above: Performed By: #### L IPID, T4, TSH, FT3, CMP #### [facility] [address] [address] [address] Maggy Irving Creatinine [Mass/Vol] 0.83 mg/dL Normal 0.70-1.30 [facility] Comment on above: Performed By: #### L IPID, T4, TSH, FT3, CMP #### [facility] [address] [address] [address] Maggy Irving EGFR-AF AZERBAIJANI >60 Normal >=60 [facility] Comment on above: Performed By: #### L IPID, T4, TSH, FT3, CMP #### [facility] [address] [place] [address] Dr. Maggy Irving EGFR-NON AF AZERBAIJANI >60 Normal >=60 [facility] Comment on above: Performed By: #### L IPID, T4, TSH, FT3, CMP #### [facility] [address] [place] [address] Dr. Maggy Irving Globulin (S) [Mass/Vol] 3.4 g/dL Normal [facility] Comment on above: Performed By: #### L IPID, T4, TSH, FT3, CMP #### [facility] [address] [place] [address] Dr. Maggy Irving Glucose [Mass/Vol] 116 mg/dL Critically high 74-106 T [facility] Comment on above: Performed By: #### L IPID, T4, TSH, FT3, CMP #### [facility] [address] [place] [address] Dr. Maggy Irving Potassium [Moles/Vol] 4.0 mmol/L Normal 3.5-5.1 [facility] Comment on above: Performed By: #### L IPID, T4, TSH, FT3, CMP #### [facility] [address] [address] [address] Maggy Irving Protein [Mass/Vol] 7.2 g/dL Normal 6.4-8.2 [facility] Comment on above: Performed By: #### L IPID, T4, TSH, FT3, CMP #### [facility] [address] [address] [address] Maggy Irving Sodium [Moles/Vol] 141 mmol/L Normal 136-145 [facility] Comment on above: Performed By: #### L IPID, T4, TSH, FT3, CMP #### [facility] [address] [address] [address] Maggy Irving Urea nitrogen [Mass/Vol] 17.0 mg/dL Normal 7.0-18.0 [facility] Comment on above: Performed By: #### L IPID, T4, TSH, FT3, CMP #### [facility] [address] [address] [address] Maggy Irving Urea nitrogen/Creatinine [Mass ratio] 20.5 mg/mg Normal [facility] Comment on above: Performed By: #### L IPID, T4, TSH, FT3, CMP #### [facility] [address] [address] [address] Maggy Irving TSHon 12-07-2022 TSH 5.531 uIU/mL Critically high 0.358-3.740 [facility] Comment on above: Performed By: #### L IPID, T4, TSH, FT3, CMP #### [facility] [address] [address] [address] Maggy Irving TESTOSTERONE, TOTALon 2021 Testosterone [Mass/Vol] 390 ng/dL Normal 264-916 [facility] Comment on above: Result Comment: Adul t male reference interval is based on a population of healthy nonobese males (BMI <30) between 19 and 39 years old. Reynaldo et.al. JCEM 2017,102;[id number]. PMID: [id number]. Performed By: #### L IPID, T4, TSH, FT3, CMP #### [facility] [address] [place] [address] Dr. Maggy Irving CBC AUTO DIFFon 07-22-2022 BASO # 0.0 103/ul Normal 0.0-0.1 [facility] Comment on above: Performed By: #### L IPID, T4, TSH, FT3, CMP #### [facility] [address] [place] [address] Dr. Maggy Irving Basophils/100 WBC (Bld) 0.2 % Normal 0.2-2.0 [facility] Comment on above: Performed By: #### L IPID, T4, TSH, FT3, CMP #### [facility] [address] [place] [address] Dr. Maggy Irving EO # 0.2 103/ul Normal 0.0-0.7 [facility] Comment on above: Performed By: #### L IPID, T4, TSH, FT3, CMP #### [facility] [address] [place] [address] Dr. Maggy Irving Eosinophils/100 WBC (Bld) 3.1 % Normal 0.9-7.0 [facility] Comment on above: Performed By: #### L IPID, T4, TSH, FT3, CMP #### [facility] [address] [place] [address] Dr. Maggy Irving Erythrocyte distribution width (RBC) [Ratio] 12.3 % Normal 11.0-15.0 [facility] Comment on above: Performed By: #### L IPID, T4, TSH, FT3, CMP #### [facility] [address] [place] [address] Dr. Maggy Irving Hematocrit (Bld) [Volume fraction] 41.6 % Critically low 42.0-54.0 [facility] Comment on above: Performed By: #### L IPID, T4, TSH, FT3, CMP #### [facility] [address] [place] [address] Dr. Maggy Irving Hemoglobin (Bld) [Mass/Vol] 14.6 g/dL Normal 14.0-18.0 [facility] Comment on above: Performed By: #### L IPID, T4, TSH, FT3, CMP #### [facility] [address] [place] [address] Dr. Maggy Irving IG # 0.02 10e3/ul Normal 0.00-0.03 [facility] Comment on above: Performed By: #### L IPID, T4, TSH, FT3, CMP #### [facility] [address] [place] [address] Dr. Maggy Irving IG % 0.4 % Normal 0.0-0.5 [facility] Comment on above: Performed By: #### L IPID, T4, TSH, FT3, CMP #### [facility] [address] [place] [address] Dr. Maggy Irving LYMPH # 0.9 103/ul Critically low 1.2-3.8 [facility] Comment on above: Performed By: #### L IPID, T4, TSH, FT3, CMP #### [facility] [address] [place] [address] Dr. Maggy Irving Lymphocytes/100 WBC (Bld) 17.9 % Critically low 20.5-60.0 [facility] Comment on above: Performed By: #### L IPID, T4, TSH, FT3, CMP #### [facility] [address] [place] [address] Dr. Maggy Irving MANUAL DIFF REQ NO Normal [facility] Comment on above: Performed By: #### L IPID, T4, TSH, FT3, CMP #### [facility] [address] [place] [address] Dr. Maggy Irving MCH (RBC) [Entitic mass] 31.1 pg Normal 25.9-34.0 [facility] Comment on above: Performed By: #### L IPID, T4, TSH, FT3, CMP #### [facility] [address] [place] [address] Dr. Maggy Irving MCHC (RBC) [Mass/Vol] 35.1 g/dL Normal 29.9-35.2 [facility] Comment on above: Performed By: #### L IPID, T4, TSH, FT3, CMP #### [facility] [address] [place] [address] Dr. Maggy Irving MCV (RBC) [Entitic vol] 88.5 fL Normal 80.0-94.0 [facility] Comment on above: Performed By: #### L IPID, T4, TSH, FT3, CMP #### [facility] [address] [place] [address] Dr. Maggy Irving MONO # 0.4 103/ul Normal 0.3-0.8 [facility] Comment on above: Performed By: #### L IPID, T4, TSH, FT3, CMP #### [facility] [address] [place] [address] Dr. Maggy Irving Monocytes/100 WBC (Bld) 8.7 % Normal 1.7-12.0 [facility] Comment on above: Performed By: #### L IPID, T4, TSH, FT3, CMP #### [facility] [address] [place] [address] Dr. Maggy Irving NEUT # 3.4 103/ul Normal 1.4-6.5 [facility] Comment on above: Performed By: #### L IPID, T4, TSH, FT3, CMP #### [facility] [address] [place] [address] Dr. Maggy Irving Neutrophils/100 WBC (Bld) 69.7 % Normal 43.0-75.0 [facility] Comment on above: Performed By: #### L IPID, T4, TSH, FT3, CMP #### [facility] [address] [place] [address] Dr. Maggy Irving Platelet mean volume (Bld) [Entitic vol] 9.9 fL Normal 9.5-13.5 [facility] Comment on above: Performed By: #### L IPID, T4, TSH, FT3, CMP #### [facility] [address] [place] [address] Dr. Maggy Irving PLT 121 103/ul Critically low 150-450 [facility] Comment on above: Performed By: #### L IPID, T4, TSH, FT3, CMP #### [facility] [address] [place] [address] Dr. Maggy Irvnig RBC 4.70 106/ul Normal 4.70-6.10 [facility] Comment on above: Performed By: #### L IPID, T4, TSH, FT3, CMP #### [facility] [address] [address] [address] Maggy Irving WBC 4.8 103/ul Normal 4.0-11.0 [facility] Comment on above: Performed By: #### L IPID, T4, TSH, FT3, CMP #### [facility] [address] [address] [address] Maggy Irving FREE T3on 04-09-2022 FREE T3 3.15 pg/mlL Normal 2.18-3.98 [facility] Comment on above: Performed By: #### L IPID, T4, TSH, FT3, CMP #### [facility] [address] [place] [address] Dr. Maggy Irving GLYCOHEMOGLOBIN A1Con 2021 ADA RECOMMENDATION SEE BELOW Normal [facility] Comment on above: Result Comment: ADA RECOMMENDED LIMIT 4.0 - 6.0 ADA THERAPEUTIC TARGET < 7.0 ACTION SUGGESTED > 7.0 Performed By: #### L IPID, T4, TSH, FT3, CMP #### [facility] [address] [place] [address] Dr. Maggy Irving Glucose [Mass/Vol] 123 mg/dL Normal [facility] Comment on above: Performed By: #### L IPID, T4, TSH, FT3, CMP #### [facility] [address] [address] [address] Maggy Irving HbA1c (Bld) [Mass fraction] 5.9 % Normal 4.5-6.2 [facility] Comment on above: Performed By: #### L IPID, T4, TSH, FT3, CMP #### [facility] [address] [place] [address] Dr. Maggy Irving LIPID PROFILEon 04-09-2022 CHOL-HDL RATIO NORM SEE BELOW Normal [facility] Comment on above: Result Comment: 3.3 - 4.4 LOW RISK 4.4 - 7.1 AVERAGE RISK 7.1 - 11.0 MODERATE RISK >11.0 HIGH RISK Performed By: #### L IPID, T4, TSH, FT3, CMP #### [facility] [address] [place] [address] Dr. Maggy Irving Cholesterol [Mass/Vol] 174 mg/dL Normal <=200 [facility] Comment on above: Performed By: #### L IPID, T4, TSH, FT3, CMP #### [facility] [address] [place] [address] Dr. Maggy Irving Cholesterol in HDL [Mass/Vol] 36 mg/dL Critically low 40-60 [facility] Comment on above: Performed By: #### L IPID, T4, TSH, FT3, CMP #### [facility] [address] [place] [address] Dr. Maggy Irving Cholesterol in LDL [Mass/Vol] 114.4 mg/dL Normal [facility] Comment on above: Performed By: #### L IPID, T4, TSH, FT3, CMP #### [facility] [address] [place] [address] Dr. Maggy Irving Cholesterol.total/Ch olesterol in HDL [Mass ratio] 4.8 {ratio} Normal [facility] Comment on above: Performed By: #### L IPID, T4, TSH, FT3, CMP #### [facility] [address] [place] [address] Dr. Maggy Irving HDL NORMAL > or = 60 mg/dl - LO W CARDIOVASCULAR RISK <40 mg/dl - HIGH CARDIOVASCULAR RISK Normal [facility] Comment on above: Performed By: #### L IPID, T4, TSH, FT3, CMP #### [facility] [address] [place] [address] Dr. Maggy Irving LDL CALC NORMAL SEE BELOW Normal [facility] Comment on above: Result Comment: <100 mg/dl OPTIMAL 100 - 129 mg/dl NEAR OR ABOVE OPTIMAL 130 - 159 mg/dl BORDERLINE HIGH 160 - 189 mg/dl HIGH >190 mg/dl VERY HIGH Performed By: #### L IPID, T4, TSH, FT3, CMP #### [facility] [address] [address] [address] Maggy Irving Triglyceride [Mass/Vol] 118 mg/dL Normal <=150 [facility] Comment on above: Performed By: #### L IPID, T4, TSH, FT3, CMP #### [facility] [address] [address] [address] Maggy Irving VLDL CALC 23.6 mg/dL Normal [facility] Comment on above: Performed By: #### L IPID, T4, TSH, FT3, CMP #### [facility] [address] [place] [address] Dr. Maggy Irving OCC BLD IMMUNO SCREENon 03-20 OCCULT BLOOD Negative Normal NEGATIVE [facility] Comment on above: Performed By: #### O BSCRN #### [facility] [address] [place] [address] Dr. Maggy Irving PROF 14(COMP METB)on 022 Albumin [Mass/Vol] 3.6 g/dL Normal 3.4-5.0 [facility] Comment on above: Performed By: #### L IPID, T4, TSH, FT3, CMP #### [facility] [address] [address] [address] Maggy Irving Albumin/Globulin [Mass ratio] 1.1 {ratio} Normal [facility] Comment on above: Performed By: #### L IPID, T4, TSH, FT3, CMP #### [facility] [address] [address] [address] Maggy Irving ALP [Catalytic activity/Vol] 47 U/L Normal 46-116 [facility] Comment on above: Performed By: #### L IPID, T4, TSH, FT3, CMP #### [facility] [address] [address] [address] Maggy Irving ALT [Catalytic activity/Vol] 31 U/L Normal 16-63 [facility] Comment on above: Performed By: #### L IPID, T4, TSH, FT3, CMP #### [facility] [address] [place] [address] Dr. Maggy Irving Anion gap [Moles/Vol] 10.2 mmol/L Normal [facility] Comment on above: Performed By: #### L IPID, T4, TSH, FT3, CMP #### [facility] [address] [address] [address] Maggy Irving AST [Catalytic activity/Vol] 17 U/L Normal 15-37 [facility] Comment on above: Performed By: #### L IPID, T4, TSH, FT3, CMP #### [facility] [address] [address] [address] Maggy Irving Bilirubin [Mass/Vol] 0.6 mg/dL Normal 0.2-1.0 [facility] Comment on above: Performed By: #### L IPID, T4, TSH, FT3, CMP #### [facility] [address] [place] [address] Dr. Maggy Irving Calcium [Mass/Vol] 8.1 mg/dL Critically low 8.5-10.1 [facility] Comment on above: Performed By: #### L IPID, T4, TSH, FT3, CMP #### [facility] [address] [place] [address] Dr. Maggy Irving Chloride [Moles/Vol] 105 mmol/L Normal 98-107 [facility] Comment on above: Performed By: #### L IPID, T4, TSH, FT3, CMP #### [facility] [address] [place] [address] Dr. Maggy Irving CO2 [Moles/Vol] 29.6 mmol/L Normal 21.0-32.0 [facility] Comment on above: Performed By: #### L IPID, T4, TSH, FT3, CMP #### [facility] [address] [address] [address] Maggy Irving Creatinine [Mass/Vol] 0.89 mg/dL Normal 0.70-1.30 [facility] Comment on above: Performed By: #### L IPID, T4, TSH, FT3, CMP #### [facility] [address] [place] [address] Dr. Maggy Irving EGFR-AF AZERBAIJANI >60 Normal >=60 [facility] Comment on above: Performed By: #### L IPID, T4, TSH, FT3, CMP #### [facility] [address] [address] [address] Maggy Irving EGFR-NON AF AZERBAIJANI >60 Normal >=60 [facility] Comment on above: Performed By: #### L IPID, T4, TSH, FT3, CMP #### [facility] [address] [address] [address] Maggy Irving Globulin (S) [Mass/Vol] 3.2 g/dL Normal [facility] Comment on above: Performed By: #### L IPID, T4, TSH, FT3, CMP #### [facility] [address] [address] [address] Maggy Irving Glucose [Mass/Vol] 110 mg/dL Critically high 74-106 [facility] Comment on above: Performed By: #### L IPID, T4, TSH, FT3, CMP #### [facility] [address] [place] [address] Dr. Maggy Irving Potassium [Moles/Vol] 3.8 mmol/L Normal 3.5-5.1 [facility] Comment on above: Performed By: #### L IPID, T4, TSH, FT3, CMP #### [facility] [address] [place] [address] Dr. Maggy Irving Protein [Mass/Vol] 6.8 g/dL Normal 6.4-8.2 [facility] Comment on above: Performed By: #### L IPID, T4, TSH, FT3, CMP #### [facility] [address] [place] [address] Dr. Maggy Irving Sodium [Moles/Vol] 141 mmol/L Normal 136-145 [facility] Comment on above: Performed By: #### L IPID, T4, TSH, FT3, CMP #### [facility] [address] [place] [address] Dr. Maggy Irving Urea nitrogen [Mass/Vol] 17.0 mg/dL Normal 7.0-18.0 [facility] Comment on above: Performed By: #### L IPID, T4, TSH, FT3, CMP #### [facility] [address] [address] [address] Maggy Irving Urea nitrogen/Creatinine [Mass ratio] 19.1 mg/mg Normal [facility] Comment on above: Performed By: #### L IPID, T4, TSH, FT3, CMP #### [facility] [address] [address] [address] Maggy Irving T4on 04-09-2022 T4 [Mass/Vol] 7.90 ug/dL Normal 4.50-12.10 [facility] Comment on above: Performed By: #### L IPID, T4, TSH, FT3, CMP #### [facility] [address] [address] [address] Maggy Irving TSHon 04-09-2022 TSH 4.949 uIU/mL Critically high 0.358-3.740 [facility] Comment on above: Performed By: #### L IPID, T4, TSH, FT3, CMP #### [facility] [address] [address] [address] Maggy Irving Vital Signs Date Time Vital Sign Value Performing Clinician Zain asif 04-06-2024 09:43-0400 Body height 177.[address] [facility] 04-06-2024 09:43-0400 Body mass index (BMI) [Ratio] 34.4 kg/m2 [facility] 04-06-2024 09:43-0400 Body temperature 98.3 [degF] [facility] 04-06-2024 09:43-0400 Body weight 109.[address] [facility] 04-06-2024 09:43-0400 Diastolic blood pressure 78 mm[Hg] [facility] 04-06-2024 09:43-0400 Heart rate 87 /min [facility] 04-06-2024 09:43-0400 Respiratory rate 18 /min [facility] 04-06-2024 09:43-0400 SaO2% (BldA) [Mass fraction] 96 % [facility] 04-06-2024 09:43-0400 Systolic blood pressure 146 mm[Hg] [facility] Encounters Encounter Date Encounter Type Care Provider Facility Start: 06-04-2025 End: 06-04-2025 ambulatory [facility] Start: 06-04-2025 End: 06-04-2025 Patient encounter procedure Chirag STINSON [facility] [place] Start: 05-07-2025 ambulatory Chirag STINSON Facility:[facility] [place] Start: 04-27-2024 End: 04-27-2024 ambulatory Marcella Gross [facility] Work Phone: Start: 04-27-2024 End: 04-27-2024 Departed Referred MD Marcella Gross Work Phone: [facility] Start: 04-06-2024 End: 04-06-2024 ambulatory [facility] Work Phone: Start: 04-06-2024 End: 04-06-2024 Patient encounter procedure [facility] Work Phone: Start: 02-10-2023 End: 02-11-2023 ambulatory IVELISSE ORNELAS Facility:[facility] Start: 02-07-2023 End: 02-07-2023 ambulatory IVELISSE ORNELAS Facility:[facility] Start: 02-06-2023 Encounter for preprocedural laboratory examination IVELISSE ORNELAS [facility] Start: 01-31-2023 End: 02-01-[address] [...] L IPID, T4, TSH, FT3, CMP #### [facility] [address] [place] [address] Dr. Maggy Irving Amputation of fifth toe Gianni ael NILL Repair of inguinal hernia Mi chacristino NILL Immunizations Immunization Date Immunization Notes Care Provider Fa cili 09-10-2021 SARS-CoV-2 (COVID-19 ) mRNA-1273 vaccine Chirag STINSON [facility] [place] 12-26-2020 SARS-CoV-2 (COVID-19 ) Ad26 vaccine, recombinant Chirag NILL [facility] Comment on above: Result Comment: 2024: [id number] Payers Date Payer Category Payer Medicare [id number] 2025 Private Health Insurance [id number] 2024 Self-pay 1959 Medicare [id number] 1959 Unknown [id number] 1952 Unknown [id number] 2.16.84 [id number] 1952 Unknown [id number] 2.16.84 [id number] 1952 Unknown [id number] 2.16.84 0.1.379967.3.579.2.593 1952 Unknown [id number] 2.16.84 0.1.507883.3.579.2.593 1952 Unknown [id number] 2.16.84 0.1.143554.3.579.2.593 1952 Unknown [id number] 2.16.84 0.1.547693.3.579.2.593 1952 Unknown [id number] 2.16.84 0.1.871641.3.579.2.593 1952 Unknown [id number] 2.16.84 0.1.794559.3.579.2.593 1952 Unknown [id number] 2.16.84 0.1.967350.3.579.2.593 1952 Unknown [id number] 2.16.84 0.1.055840.3.579.2.593 1952 Unknown [id number] 2.16.84 0.1.897867.3.579.2.593 1952 Unknown [id number] 2.16.8 40.1.065808.3.579.2.727 Medicare Medicare [id number] Unknown [id number] 2.16.8 [id number] Social History Date Type Detail Facility [facility] Work Phone: Start: 1950 Sex Assigned At Male F [facility] Start: 06-04-2025 Tobacco smoking status Never s moked tobacco (finding) [facility] [place] Tobacco smoking status Never Aishwarya [facility] [place] Sexual Orientation [facility] [place] Sex Assigned At Male [facility] Sex Male (finding) [facility] Clinical Note 06-04-2025 Note Date & Type Note Facility 06-04-2025 Note General Surgery Offi ce/Clinic Note Chief Complaint consultation for anemia and [...] male with h/o htn, hyperlipidemia, neuropathy, hypothyroidism, Wpptztd-Exajt-Mjzhb disease, referred for positive fecal occult blood [...] Problem List/Past Medical History Ongoing BMI 35.0-35.9,adult 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 Class [...] (COVID-19) Ad26 vaccine 12/26/2020 Recorded 2025-05-15: [id number] [facility] Comment on above: Result Comment: Elec tronically Signed By: SHANTELL MUÑOZ, Chirag Armando\Date and Time Signed: 06/04/25 15:00 EDT Clinical Note 02-07-2023 Note Date & Type [...] by: OLVIN KHANNA Date: 2023-02-07 09:41 [facility] Evaluation + Plan note Note Date & Type Note Facility Evaluation + Plan note No data available for this section [facility] [place] Evaluation note Note Date & Type Note Facility Evaluation note Diagnosis Onset Date Bacterial conjunctivitis of right eye [facility] Work Phone: Hospital Discharge instructions Note Date & Type Note Facility Hospital Discharge instructions No data available for this section [facility] [place] Progress note Note Date & Type Note Facility Progress note No data available for this section [facility] [place] Summary Purpose Family History No Family History [...] content) DATE CREATED AUTHOR 02/25/2023 [facility] DATE CREATED AUTHOR AUTHOR'S ORGANIZ ATION 05/02/2024 [facility] DATE CREATED AUTHOR AUTHOR'S ORGANIZ ATION 06/05/2025 [facility] Care Teams (unrecognized sec tion and content) [...] may be documented in an alternate section No data available for this section FOR RECORDS PERTAINING TO PATIENTS WHO [...] ON THE PRIMARY CLINICAL RECORDS. [facility] provides no warranty or guarantee of the accuracy or completeness of information in this document.
== END 2025-06-27 15:15 | disposition home or self-care (01) ==
LOC: WC 15:14
PROVIDERS: PCP Family Medicine; Visit Provider Physician Assistant
DX: L97.412 Non-pressure chronic ulcer of right heel and midfoot with fat layer exposed (principal); L89.890 Pressure ulcer of other site, unstageable
CPT/HCPCS: 11043; 29445; A6213

== ENCOUNTER 2025-07-02 13:26 | Outpatient (OUT) | payer MEDICARE, OTHER, SELFPAY ==
--- OUTSIDE RECORDS SUMMARY | 2024-06-20 05:00 | XMS_ITS ---
Author Organization The [facility] in [place] Address [address] [place] [address] Care Team Providers Care Knitting Inspector Name Role Phone Quinn Gross Primary Care Provider [phone] Gaudencio Wilson [phone] REASON FOR VISIT 8 week f/u Encounters Encounter Location Date Provider Diagnosis [facility] (PODIATRY) [address] [place] [address] [place] [address] 06/20/2024 Gaudencio Schneider Plan Of Treatment Next Appt Details Provider Name:Quinn Gross, 09:15:00 AM, [address] [facility] [place], [address], Progress Notes * Michael OJEDA LDOB:1949 (75 yo M)Acc No.[id number]:06/20/2024 UNLOCKED PROGRESS NOTE Follow Up Patient: Michael HAGER Provider: Helen Schneider DPM, MS :1950 A ge:74 Y S ex:Male Date:06/20/2024 Address:[address] [place] [address] Pcp:Quinn Gross Subjective: * Chief Complaints: * 1 . 8 week f/u. * Medical History: Objective: * Vitals: Assessment: Plan: * Treatment: * * Electronic signature of Devan Schneider DPM on 07/02/2025 at 01:29 PM EDT Sign off status: Pending Visit Status: C ANC (Cancelled) * Provider: Helen Schneider DPM, MS Date: 1 Generated for Armen Madison/Lindsey on: 1 01:29 PM EDT
--- OUTSIDE RECORDS SUMMARY | 2025-07-02 13:29 | XMS_ITS | Clinical Summary ---
Author Organization [facility] Healthcare Address [address] [place] [address] Care Team Providers Care Forming Tube Selector Name Role Phone Unavailable Primary Care Provider [...]
--- OUTSIDE RECORDS SUMMARY | 2025-07-02 13:30 | XMS_ITS | Patient Health Record ---
Author Organization [facility] Address [address] [place] [address] Care Team Providers Care Co Founder And Chairman Name Role Phone Brock Gross Primary Care Provider Olvin Morgan Unavailable [phone] HernandoLudinle Unavailable Reason For Referral No Information [...] Nonsmoker Encounters Encounter Location Date Provider Diagnosis [facility] [address] [place] [address] [place] [address] 07/09/2024 Nena Villagomez Inclusion cyst L72.0 Assessments [...] Order Date SCC- HAND 3 VIEW RIGHT [id number] 05/28/2024 Insurance Providers Payer Name Payer Address Payer Phone Subscriber Number Group Number Insured Name Patient Relationship to Insured Coverage Start Date Coverage End Date Medicare [address] [id number] SILVINO MARVIN Self - patient is the insured Medical [facility] [address] [place] [address] [id number] SILVINO MARVIN Self - patient is the insured
--- OUTSIDE RECORDS SUMMARY | 2025-07-02 13:30 | XMS_ITS | Patient Health Record ---
Author Organization [facility] Address [address] [place] [address] Care Team Providers Care Development Coach Name Role Phone Quinn Gross Primary Care Provider Allergies No Known Allergies Results Component Value Reference Range Notes US abdomen complete Reviewed date:05/14/2025 04:06:22 PM Interpretation: Performing Lab: Notes/Report: Source Facility: [place] [address] Ultrasound Report Signed Patient: SILVINO OJEDA MR#: [id number] : 1950 Acct:[id number] Age/Sex: 75 / M ADM Date: 05/14/25 Loc: US Attending Dr: Marcella Gross M.D. Ordering Physician: Marcella Gross M.D. Date of Service: 05/14/25 Procedure(s): US abdomen complete Accession Number(s): [id number] cc: Marcella Gross M.D. [place] [address] Patient Name: SILVINO OJEDA MRN: [id number] date: 1950 Sex: M Assigned Patient Location: US Current Patient Location: US Accession/Order Number: [id number] Exam Date: 05/14/2025 07:02 Report Date: 05/14/2025 09:39 At the request of: MARCELLA GROSS MD Procedure: US abdomen complete COMPLETE ABDOMINAL [...] Mistry M.D. 05/14/2025 9:39 AM Dictation Location: [place] [address] Electronically authenticated by: [id number] Y Date: 05/14/2025 09:39 Dictated By: Jamilah Mistry M.D. Signed By: 05/14/25 0942 DD/ 0939 TD/TT: Clinical Evaluator: CBC AUTO DIFF Reviewed date:07/03/2024 05:43:04 PM Interpretation: Performing Lab: Notes/Report: [facility] , White Blood Count 4.1 4.0-11.0 [...] Performing Lab: see note ML - [facility] LB CBC AUTO DIFF Reviewed date:05/06/2025 01:12:23 PM Interpretation: Performing Lab: Notes/Report: [facility] , White Blood Count 5.2 4.0-11.0 [...] 3/uL Performing Lab: see note ML - [facility] FREE T3 Reviewed date:05/06/2025 01:12:23 PM Interpretation: Performing Lab: Notes/Report: [facility] , Free T3 2.58 2.18-3.98 pg/mL Performing Lab: see note - [facility] GLYCOHEMOGLOBIN A1C Reviewed date:05/06/2025 01:12:23 PM Interpretation: Performing Lab: Notes/Report: [facility] , Glycohemoglobin A1C 5.7 4.5-6.2 % ACTION SUGGESTED > 7.0 ADA THERAPEUTIC TARGET < 7.0 ADA RECOMMENDED LIMIT 4.0 - 6.0 Estimated Average Glucose 117 Performing Lab: see note - [facility] INSULIN Reviewed date:05/07/2025 03:31:36 PM Interpretation: Performing Lab: Notes/Report: [facility] , Insulin 15.5 2.6-24.9 uIU/mL Performed at: [facility] [employer] Selling Distributor: Luis Ruby PhD, Phone: [phone] [address] [place], [place] [phone] Performing Lab: see note - [facility] LB LIPID PROFILE Reviewed date:05/06/2025 01:12:23 PM Interpretation: Performing Lab: Notes/Report: [facility] , Triglycerides 138 <=150 mg/dL Cholesterol [...] RISK Performing Lab: see note ML - [facility] LB PROF 14(COMP METB) Reviewed date:05/06/2025 01:12:23 PM Interpretation: Performing Lab: Notes/Report: [facility] , Sodium 140 136-145 mmol/L Potassium [...] 1.1 Performing Lab: see note ML - [facility] LB PSA SCREENING Reviewed date:05/06/2025 01:12:23 PM Interpretation: Performing Lab: Notes/Report: [facility] , Prostate Specific Antigen Scrn 2.21 <=4.00 ng/mL Performing Lab: see note ML - [facility] LB T4 Reviewed date:05/06/2025 01:12:23 PM Interpretation: Performing Lab: Notes/Report: [facility] , T4 Thyroxine 10.60 4.50-12.10 ug/dL Performing Lab: see note - [facility] LB TSH Reviewed date:05/06/2025 01:12:23 PM Interpretation: Performing Lab: Notes/Report: [facility] , Thyroid Stimulating Hormone 2.537 0.358-3.740 u IU/mL Performing Lab: see note ML - [facility] LB URIC ACID SERUM Reviewed date:05/06/2025 01:12:23 PM Interpretation: Performing Lab: Notes/Report: [facility] , Uric Acid 6.0 3.5-7.2 mg/dL Performing Lab: see note ML - [facility] LB Testosterone Reviewed date:05/07/2025 03:31:36 PM Interpretation: Performing Lab: Notes/Report: [facility] , Testosterone 150 264-916 ng/dL Adult male reference interval is based on a population of [employer] Selling Distributor: Luis Ruby PhD, Phone: [phone] [address] [place], [place] [phone] old. Reynaldo et.al. JCEM 2017,102;6988-8798. PMID: healthy nonobese males (BMI <30) between 19 and 39 years Performed at: - [facility] [place] [id number]. Performing Lab: see note - [facility] LB Occult Blood* Reviewed date:05/06/2025 01:56:05 PM Interpretation: Performing Lab: Notes/Report: [facility] , Occult Blood Positive Performing Lab: see note ML - [facility] LB XR foot RT min 3V Reviewed date:05/22/2025 11:09:08 AM Interpretation: Performing Lab: Notes/Report: Source Facility: [place] [address] [place] [address] XRay Report Signed Patient: SILVINO OJEDA MR#: [id number] : 1950 Acct:[id number] Age/Sex: 75 / M ADM Date: 05/21/25 Loc: RAD Attending Dr: Noelle ROLLE Ordering Physician: Noelle Paiz Date of Service: 05/21/25 Procedure(s): XR foot RT min 3V Accession Number(s): [id number] cc: Marcella Gross M.D.; Noelle Paiz [place] [address] Patient Name: SILVINO OJEDA MRN: [facility]:[id number] date: 1950 Sex: M Assigned Patient Location: [facility] Current Patient Location: Accession/Order Number: [id number] Exam Date: 05/21/2025 09:44 Report Date: 05/21/2025 [...] Mistry M.D. 05/21/2025 10:10 AM Dictation [facility] [employer] Electronically authenticated by: [id number] Y Date: 05/21/2025 10:10 Dictated By: Jamilah Mistry M.D. Signed By: 05/21/25 1013 DD/ 1010 TD/TT: Clinical Evaluator: CBC AUTO DIFF Reviewed date:05/24/2025 12:57:28 PM Interpretation: Performing Lab: Notes/Report: [facility] , White Blood Count 4.1 4.0-11.0 [...] Performing Lab: see note ML - [facility] Reason For Referral Diagnosis 1 Anemia (D64.9) Diagnosis 2 Occult blood positiv e stool (R19.5) Referral Organization [facility] Medicine Referring Provider First Name Quinn Referring Provider [...] W/U Status Risk Notes Problem Tinea cruris (587194183) Tinea cruris (B35.6) Active confirmed Problem Thyrotoxicosis (67267952) Thyrotoxicosis , unspecified without thyrotoxic crisis or storm (E05.90) Active confirmed Problem Chronic ulcer of foot (714242609) Non-pressure chronic ulcer of left heel and midfoot with fat layer exposed (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) Active confirmed Problem Non-pressure chronic ulcer of other part of right foot limited to breakdown of skin (L97.511) Active confirmed Problem Acquired deformity of right foot (disorder) (427734935) Other acquired deformities of right foot (M21.6X1) Active confirmed cavovarus contracture Problem Acquired deformity of left foot (disorder) (421752697) Other acquired deformities of left foot (M21.6X2) Active confirmed cavovarus contracture Problem Contracture of joint of right ankle (disorder) (738500584305286 ) Contracture, 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) Active confirmed Problem Contracture of joint of left ankle (disorder) (764859201822558 ) Contracture, left ankle (M24.572) Active confirmed Problem Contracture of joint of left foot (disorder) (149299236101163 ) Contracture, left foot (M24.575) Active confirmed Problem Instability of joint of right ankle (772998226837550 7) Other instability, right ankle (M25.371) Active confirmed Problem Pain of left knee joint (finding) (668315892391494 ) Pain in left knee (M25.562) Active confirmed Problem Closed fracture of phalanx of foot (71098930) Nondisplaced unspecified fracture of left great toe, initial encounter for closed fracture (S92.405A) Active confirmed Problem Hypertension (96708376) HTN (hypertension) (I10) Active confirmed Problem Dyspnea on exertion (39177099) Dyspnea on exertion (R06.09) Active confirmed Problem Anemia (496089796) Anemia (D64.9) Active confirmed Problem Neuropathy (015952675) Neuropathy (G62.9) Active confirmed Problem Tinnitus (42371257) Tinnitus (H93.19) Active confirmed Problem Edema (556833722) Edema leg (R60.0) Active confirmed Problem Hemorrhoids (04008683) Hemorrhoids (K64.9) Active confirmed Problem Abnormal feces (088849620) Occult blood positive stool (R19.5) Active confirmed Problem Overweight (159700136) Over weight (E66.3) Active confirmed Problem Ganglion cyst (12439543) Ganglion cyst (M67.40) Active confirmed Problem Erectile dysfunction (disorder) (978693624) Impotence (N52.9) Active confirmed Problem Acquired cavovarus deformity of right foot (785312005757474 4) 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 Problem 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 Problem Leukocytosis (924781757) Elevated white blood cell count (D72.829) Active confirmed Problem Essential hypertension (75121630) Essential (primary) hypertension (I10) Active confirmed Problem Sexual dysfunction (97085713) Sexual dysfunction (R37) Active confirmed Problem Inguinal hernia (disorder) (357824591) Hernia, inguinal (K40.90) Active confirmed Problem 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 Problem Xanthelasma (79441671) Xanthelasma (H02.60) Active confirmed Problem Acquired hammer toe of right foot (750056823247144 5) Hammertoe of right foot (M20.41) Active confirmed Problem 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 Problem Decreased testosterone level (260322717) Decreased testosterone level (R79.89) Active confirmed Problem Decubitus ulcer of left foot, stage 1 (L89.891) Active confirmed Problem Chronic ulcer of right heel (disorder) (282621347930049 02) Chronic ulcer of right heel limited [...] [facility] [address] [place] [address] 05/06/2025 Quinn Gross Decreased testostero ne level R79.89 ; Essential (primary) hypertension I10 ; Neuropathy G62.9 ; Cerumen impaction H61.20 and Bilateral impacted cerumen H61.23 [facility] [address] [place] [address] 08/13/2024 Quinn Hoy Dyspnea on exertion R06.09 [facility] [address] [place] [address] 02/04/2025 Quinn Hoy Dyspnea on exertion R06.09 [facility] [address] [place] [address] 05/06/2025 Quinn Hoy Anemia D64.9 and Elevated liver enzymes R74.8 [place] [address] [place] [address] 05/06/2025 Quinn Hoy Anemia D64.9 and Occ ult blood positive stool R19.5 [place] [address] [place] [address] 05/07/2025 Quinn Hoy [facility] [address] [place] [address] 05/14/2025 Quinn Hoy [facility] [address] [place] [address] 05/24/2025 Quinn Hoy Elevated white blood cell count D72.829 Assessments Encounter Date Diagnosis (ICD Code) Assessment [...] Name Order Date CMP (COMPLETE METABOLIC PANEL) 4 HEMOGLOBIN A1C (GLYCO) 04/20/2024 HEMOGLOBIN A1C (GLYCO) [...] DIFF 05/06/2025 Next Appt Details Provider Name:Quinn Gross, 09:15:00 AM, [address] [place], [address], Insurance Providers Payer Name Payer Address Payer Phone Subscriber Number Group Number Insured Name Patient Relationship to Insured Coverage Start Date Coverage End Date MEDICARE [place] [address] [phone] [id number] Silvino Ojeda Self - patient is the insured 7 [facility] [address] [place] [address] [id number] Silvino Ojeda Self - patient is the insured 7 Medical (General) History Medical History History ICD Code hypertension hyperlipidemia neuropathy 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
--- OUTSIDE RECORDS SUMMARY | 2025-07-02 13:31 | XMS_ITS | CCD ---
Author Organization [facility] Care Team Providers Care Reexaminer Name Role Phone CHEIKH ., DR NARANJO [...] Medication Allergies] Propensity to adverse reactions (disorder) [facility] Repository Medications Current Medications Medication [...] 04-06-2024 Episodic Other aftercare (1 source) Other mcfp (current) drug therapy; Translations: [OTH ECONOMIC SPECIALIST CURRENT DRUG THERAPY] Onset: 02-16-2023 Episodic [...] are currently receiving treatment for. 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 Language Information Language assistance services are available as needed. Normal [facility] [place] 04-27-2024 L Specimen: Received: 04/30/24 Status: SOUT Req Num: [id number] Spec Type: Impression Subm Dr: Marcella Gross MD Tissues: PATHPER Procedures: PATHREVIEW Age/ Patient Sex Location Account Attending Physician Silvino Ojeda 74/M [place] [id number] Marcella Gross MD SPEC NUM: [id number] RECD: 04/30/24 STATUS: CASS REQ NUM: [id number] KAREN: 04/27/[address]: Marcella Gross MD ENTERED: 04/30/[address] [facility] DR: SPEC TYPE: Impression DEPT: ALEXSANDRA Cervantes ENTERED BY: [id number] RECV BY: [id number] ORDERED: PATHREVIEW ORDERED: PATHREVIEW Pathologist Review Abnormal [...] shifted granulocytes, or granulocytic dysplasia observed CPT: 20426 -------- -------- Specimen: [id number] Received: 04/30/24 Status: CASS Moore Num: [id number] Spec Type: Impression Subm Dr: Marcella Gross MD Tissues: PATHPER Procedures: PATHREVIEW -------- Patient: Silvino Ojeda [id number] (Continued) -------- Signed (signature on file) Celia Irving MD 04/30/241945 Normal [facility] CULTURE OTHERon 02-11-2023 CULTURE OTHER [...] Trimethoprim/Sulfamet hoxazole <=10 S F Normal [facility] Comment on above: Performed By: #### L IPID, T4, TSH, FT3, CMP #### [facility] [address] [address] [address] Maggy Irving FUNGAL CULTUREon 02-09-2023 Fungus Stain Final report Normal [facility] Comment on above: Performed By: #### L IPID, T4, TSH, FT3, CMP #### [facility] [address] [place] [address] Dr. Maggy Irving Result [address] [facility] Comment on above: Result Comment: SUDHIR/ Calcofluor preparation: no fungus observed. Performed By: #### L IPID, T4, TSH, FT3, CMP #### [facility] [address] [place] [address] Dr. Maggy Irving ACID FAST SMEAR AND CXon Acid Fast Smear Negative Normal [facility] Comment on above: Performed By: #### A FB #### [facility] [address] [place] [address] Dr. Maggy Irving [employer] Specimen Processing Tissue Grinding [facility] Comment on above: Performed By: #### A FB #### [facility] [address] [place] [address] Dr. Maggy Irving CULTURE ANAEROBICon 02-08-20 CULTURE ANAEROBIC Isolate 1 Finegoldia magna Light growth of Normal [facility] Comment on above: Result Comment: EVID ENCE BASED PRACTICE BY [facility] HAS DEMONSTRATED THAT FINEGOLDIA SPECIES ARE ROUTINELY SUSCEPTIBLE TO PIPERACILLIN-TAZOBACTAM, CEFOXITIN, ERTAPENEM, IMIPENEM METRONIDAZOLE AND VARIABLY RESISTANT TO CLINDAMYCIN. Performed By: #### L IPID, T4, TSH, FT3, CMP #### [facility] [address] [place] [address] Dr. Maggy MENDOZA STAINon 02-07-2023 COMMENTS NO ORGANISMS OBSERVED Normal [facility] Comment on above: Performed By: #### G STAIN #### [facility] [address] [place] [address] Dr. Maggy Irving DIPHTHEROIDS Normal [facility] Comment on above: Performed By: #### G STAIN #### [facility] [address] [place] [address] Dr. Maggy Irving EPITHELIALS Normal [facility] Comment on above: Performed By: #### G STAIN #### [facility] [address] [address] [address] Maggy Irving FUNGAL ELEMENTS Normal [facility] Comment on above: Performed By: #### G STAIN #### [facility] [address] [place] [address] Dr. Maggy Irving GRAM NEG BACILLI Normal [facility] Comment on above: Performed By: #### G STAIN #### [facility] [address] [place] [address] Dr. Maggy MENDOZA NEG DIPPLOCOCCI Normal [facility] Comment on above: Performed By: #### G STAIN #### [facility] [address] [place] [address] Dr. Maggy MENDOZA POS BACILLI Normal [facility] Comment on above: Performed By: #### G STAIN #### [facility] [address] [place] [address] Dr. Maggy Irving GRAM POSITIVE COCCI Normal [facility] Comment on above: Performed By: #### G STAIN #### [facility] [address] [place] [address] Dr. Maggy Irving GRAM STAIN SOURCE 5th Metatarsal Bone Normal [facility] Comment on above: Performed By: #### G STAIN #### [facility] [address] [place] [address] Dr. Maggy Irving GS_DIPTH Normal [facility] Comment on above: Performed By: #### G STAIN #### [facility] [address] [place] [address] Dr. Maggy Irving WBC RARE Normal [facility] Comment on above: Performed By: #### G STAIN #### [facility] [address] [place] [address] Dr. Maggy Irving POINT OF CARE GLUCOSEon 01-18 Glucose [Mass/Vol] 114 mg/dL Critically high 74-106 [facility] Comment on above: Performed By: #### P OCGLUC #### [facility] [address] [place] [address] Dr. Maggy Irving Glucose [Mass/Vol] 122 mg/dL Critically high 74-106 [facility] Comment on above: Performed By: #### P OCGLUC #### [facility] [address] [place] [address] Dr. Maggy Irving PROF CHEM 8 (BAS METB)on Anion gap [Moles/Vol] 12.0 mmol/L Normal [facility] Comment on above: Performed By: #### L IPID, T4, TSH, FT3, CMP #### [facility] [address] [place] [address] Dr. Maggy Irving Calcium [Mass/Vol] 8.7 mg/dL Normal 8.5-10.1 [facility] Comment on above: Performed By: #### L IPID, T4, TSH, FT3, CMP #### [facility] [address] [place] [address] Dr. Maggy Irving Chloride [Moles/Vol] 104 mmol/L Normal 98-107 [facility] Comment on above: Performed By: #### L IPID, T4, TSH, FT3, CMP #### [facility] [address] [place] [address] Dr. Maggy Irving CO2 [Moles/Vol] 28.1 mmol/L Normal 21.0-32.0 [facility] Comment on above: Performed By: #### L IPID, T4, TSH, FT3, CMP #### [facility] [address] [place] [address] Dr. Maggy Irving Creatinine [Mass/Vol] 0.80 mg/dL Normal 0.70-1.30 [facility] Comment on above: Performed By: #### L IPID, T4, TSH, FT3, CMP #### [facility] [address] [address] [address] Maggy Irving EGFR-AF SAMOAN >60 Normal >=60 [facility] Comment on above: Performed By: #### L IPID, T4, TSH, FT3, CMP #### [facility] [address] [place] [address] Dr. Maggy Irving EGFR-NON AF SAMOAN >60 Normal >=60 [facility] Comment on above: Performed By: #### L IPID, T4, TSH, FT3, CMP #### [facility] [address] [place] [address] Dr. Maggy Irving Glucose [Mass/Vol] 129 mg/dL Critically high 74-106 T [facility] Comment on above: Performed By: #### L IPID, T4, TSH, FT3, CMP #### [facility] [address] [place] [address] Dr. Maggy Irving Potassium [Moles/Vol] 4.1 mmol/L Normal 3.5-5.1 [facility] Comment on above: Performed By: #### L IPID, T4, TSH, FT3, CMP #### [facility] [address] [place] [address] Dr. Maggy Irving Sodium [Moles/Vol] 140 mmol/L Normal 136-145 [facility] Comment on above: Performed By: #### L IPID, T4, TSH, FT3, CMP #### [facility] [address] [place] [address] Dr. Maggy Irving Urea nitrogen [Mass/Vol] 20.0 mg/dL Critically high 7.0-18.0 [facility] Comment on above: Performed By: #### L IPID, T4, TSH, FT3, CMP #### [facility] [address] [place] [address] Dr. Maggy Irving Urea nitrogen/Creatinine [Mass ratio] 25.0 mg/mg Normal [facility] Comment on above: Performed By: #### L IPID, T4, TSH, FT3, CMP #### [facility] [address] [address] [address] Maggy Irving FREE T3on 01-07-2023 FREE T3 3.24 pg/mlL Normal 2.18-3.98 [facility] Comment on above: Performed By: #### L IPID, T4, TSH, FT3, CMP #### [facility] [address] [address] [address] Maggy Irving T4on 01-07-2023 T4 [Mass/Vol] 9.10 ug/dL Normal 4.50-12.10 [facility] Comment on above: Performed By: #### L IPID, T4, TSH, FT3, CMP #### [facility] [address] [address] [address] Maggy Irving TSHon 01-07-2023 TSH 5.957 uIU/mL Critically high 0.358-3.740 [facility] Comment on above: Performed By: #### L IPID, T4, TSH, FT3, CMP #### [facility] [address] [address] [address] Maggy Irving NM STRESS/REST MULTIon 01-03 NM STRESS/REST MULTI Patient: SILVINO OJEDA Exam Date: 01/03/2023 : 1950 Gender:M Ordering : DR MARCELLA GROSS . Admission #: [id number] Family : Order #: [id number] CLICK HERE TO VIEW EXAM RADIOLOGY REPORT [...] M.D. on 01/04/2023 at 07:[address] [facility] ECHOCARDIO M/2D COMPLETEon 0 12-21-2022 ECHOCARDIO M/2D COMPLETE Patient: SILVINO OJEDA Exam Date: 12/21/2022 : 1950 Gender:M Ordering : DR MARCELLA GROSS . Admission #: [id number] Family : Order #: [id number] CLICK HERE TO VIEW EXAM ECHOCARDIOGRAM REPORT [...] Ling M.D. on 12/23/2022 at 18:[address] [facility] BNPon 12-07-2022 Natriuretic peptide B (Bld) [Mass/Vol] 37.0 pg/mL Normal <=900.0 [facility] Comment on above: Performed By: #### L IPID, T4, TSH, FT3, CMP #### [facility] [address] [place] [address] Dr. Maggy Irving CBC AUTO DIFFon 12-07-2022 BASO # 0.0 103/ul Normal 0.0-0.1 [facility] Comment on above: Performed By: #### L IPID, T4, TSH, FT3, CMP #### [facility] [address] [place] [address] Dr. Maggy Irving Basophils/100 WBC (Bld) 0.2 % Normal 0.2-2.0 [facility] Comment on above: Performed By: #### L IPID, T4, TSH, FT3, CMP #### [facility] [address] [place] [address] Dr. Maggy Irving EO # 0.2 103/ul Normal 0.0-0.7 [facility] Comment on above: Performed By: #### L IPID, T4, TSH, FT3, CMP #### [facility] [address] [place] [address] Dr. Maggy Irving Eosinophils/100 WBC (Bld) 3.7 % Normal 0.9-7.0 [facility] Comment on above: Performed By: #### L IPID, T4, TSH, FT3, CMP #### [facility] [address] [place] [address] Dr. Maggy Irving Erythrocyte distribution width (RBC) [Ratio] 11.9 % Normal 11.0-15.0 [facility] Comment on above: Performed By: #### L IPID, T4, TSH, FT3, CMP #### [facility] [address] [place] [address] Dr. Maggy Irving Hematocrit (Bld) [Volume fraction] 39.7 % Critically low 42.0-54.0 [facility] Comment on above: Performed By: #### L IPID, T4, TSH, FT3, CMP #### [facility] [address] [place] [address] Dr. Maggy Irving Hemoglobin (Bld) [Mass/Vol] 14.0 g/dL Normal 14.0-18.0 [facility] Comment on above: Performed By: #### L IPID, T4, TSH, FT3, CMP #### [facility] [address] [place] [address] Dr. Maggy Irving IG # 0.02 10e3/ul Normal 0.00-0.03 [facility] Comment on above: Performed By: #### L IPID, T4, TSH, FT3, CMP #### [facility] [address] [place] [address] Dr. Maggy Irving IG % 0.5 % Normal 0.0-0.5 [facility] Comment on above: Performed By: #### L IPID, T4, TSH, FT3, CMP #### [facility] [address] [place] [address] Dr. Maggy Irving LYMPH # 0.9 103/ul Critically low 1.2-3.8 [facility] Comment on above: Performed By: #### L IPID, T4, TSH, FT3, CMP #### [facility] [address] [place] [address] Dr. Maggy Irving Lymphocytes/100 WBC (Bld) 21.1 % Normal 20.5-60.0 [facility] Comment on above: Performed By: #### L IPID, T4, TSH, FT3, CMP #### [facility] [address] [place] [address] Dr. Maggy Irving MANUAL DIFF REQ NO Normal [facility] Comment on above: Performed By: #### L IPID, T4, TSH, FT3, CMP #### [facility] [address] [place] [address] Dr. Maggy Irving MCH (RBC) [Entitic mass] 30.5 pg Normal 25.9-34.0 [facility] Comment on above: Performed By: #### L IPID, T4, TSH, FT3, CMP #### [facility] [address] [place] [address] Dr. Maggy Irving MCHC (RBC) [Mass/Vol] 35.3 g/dL Critically high 29.9-35.2 [facility] Comment on above: Performed By: #### L IPID, T4, TSH, FT3, CMP #### [facility] [address] [place] [address] Dr. Maggy Irving MCV (RBC) [Entitic vol] 86.5 fL Normal 80.0-94.0 [facility] Comment on above: Performed By: #### L IPID, T4, TSH, FT3, CMP #### [facility] [address] [place] [address] Dr. Maggy Irving MONO # 0.4 103/ul Normal 0.3-0.8 [facility] Comment on above: Performed By: #### L IPID, T4, TSH, FT3, CMP #### [facility] [address] [place] [address] Dr. Maggy Irving Monocytes/100 WBC (Bld) 8.7 % Normal 1.7-12.0 [facility] Comment on above: Performed By: #### L IPID, T4, TSH, FT3, CMP #### [facility] [address] [place] [address] Dr. Maggy Irving NEUT # 2.9 103/ul Normal 1.4-6.5 [facility] Comment on above: Performed By: #### L IPID, T4, TSH, FT3, CMP #### [facility] [address] [place], [place] [id number] Dr. Maggy Irving Neutrophils/100 WBC (Bld) 65.8 % Normal 43.0-75.0 [facility] Comment on above: Performed By: #### L IPID, T4, TSH, FT3, CMP #### [facility] [address] [place] [address] Dr. Maggy Irving Platelet mean volume (Bld) [Entitic vol] 9.9 fL Normal 9.5-13.5 [facility] Comment on above: Performed By: #### L IPID, T4, TSH, FT3, CMP #### [facility] [address] [place] [address] Dr. Maggy Irving PLT 128 103/ul Critically low 150-450 [facility] Comment on above: Performed By: #### L IPID, T4, TSH, FT3, CMP #### [facility] [address] [place] [address] Dr. Maggy Irving RBC 4.59 106/ul Critically low 4.70-6.10 [facility] Comment on above: Performed By: #### L IPID, T4, TSH, FT3, CMP #### [facility] [address] [place] [address] Dr. Maggy Irving WBC 4.4 103/ul Normal 4.0-11.0 [facility] Comment on above: Performed By: #### L IPID, T4, TSH, FT3, CMP #### [facility] [address] [place] [address] Dr. Maggy Irving FREE THYROXINE INDEX T7on FTI 2.72 Normal 1.30-4.50 [facility] Comment on above: Performed By: #### L IPID, T4, TSH, FT3, CMP #### [facility] [address] [place] [address] Dr. Maggy Irving T3U 34.0 % Normal 33.0-40.0 [facility] Comment on above: Performed By: #### L IPID, T4, TSH, FT3, CMP #### [facility] [address] [place] [address] Dr. Maggy Irving T4 [Mass/Vol] 8.00 ug/dL Normal 4.50-12.10 [facility] Comment on above: Performed By: #### L IPID, T4, TSH, FT3, CMP #### [facility] [address] [address] [address] Maggy Irving IRONon 12-07-2022 Iron [Mass/Vol] 134.0 ug/dL Normal 65.0-175.0 [facility] Comment on above: Performed By: #### L IPID, T4, TSH, FT3, CMP #### [facility] [address] [address] [address] Maggy Irving LIPID PROFILEon 12-07-2022 CHOL-HDL RATIO NORM SEE BELOW Normal [facility] Comment on above: Result Comment: 3.3 - 4.4 LOW RISK 4.4 - 7.1 AVERAGE RISK 7.1 - 11.0 MODERATE RISK >11.0 HIGH RISK Performed By: #### L IPID, T4, TSH, FT3, CMP #### [facility] [address] [address] [address] Maggy Irving Cholesterol [Mass/Vol] 180 mg/dL Normal <=200 [facility] Comment on above: Performed By: #### L IPID, T4, TSH, FT3, CMP #### [facility] [address] [address] [address] Maggy Irving Cholesterol in HDL [Mass/Vol] 37 mg/dL Critically low 40-60 [facility] Comment on above: Performed By: #### L IPID, T4, TSH, FT3, CMP #### [facility] [address] [address] [address] Maggy Irving Cholesterol in LDL [Mass/Vol] 95.2 mg/dL Normal [facility] Comment on above: Performed By: #### L IPID, T4, TSH, FT3, CMP #### [facility] [address] [address] [address] Maggy Irving Cholesterol.total/Ch olesterol in HDL [Mass ratio] 4.9 {ratio} Normal [facility] Comment on above: Performed By: #### L IPID, T4, TSH, FT3, CMP #### [facility] [address] [address] [address] Maggy Irving HDL NORMAL > or = 60 mg/dl - LO W CARDIOVASCULAR RISK <40 mg/dl - HIGH CARDIOVASCULAR RISK Normal [facility] Comment on above: Performed By: #### L IPID, T4, TSH, FT3, CMP #### [facility] [address] [address] [address] Maggy Irving LDL CALC NORMAL SEE BELOW Normal [facility] Comment on above: Result Comment: <100 mg/dl OPTIMAL 100 - 129 mg/dl NEAR OR ABOVE OPTIMAL 130 - 159 mg/dl BORDERLINE HIGH 160 - 189 mg/dl HIGH >190 mg/dl VERY HIGH Performed By: #### L IPID, T4, TSH, FT3, CMP #### [facility] [address] [address] [address] Maggy Irving Triglyceride [Mass/Vol] 239 mg/dL Critically high <=150 [facility] Comment on above: Performed By: #### L IPID, T4, TSH, FT3, CMP #### [facility] [address] [address] [address] Maggy Irving VLDL CALC 47.8 mg/dL Normal [facility] Comment on above: Performed By: #### L IPID, T4, TSH, FT3, CMP #### [facility] [address] [address] [address] Maggy Irving PROF 14(COMP METB)on 023 Albumin [Mass/Vol] 3.8 g/dL Normal 3.4-5.0 [facility] Comment on above: Performed By: #### L IPID, T4, TSH, FT3, CMP #### [facility] [address] [address] [address] Maggy Irving Albumin/Globulin [Mass ratio] 1.1 {ratio} Normal [facility] Comment on above: Performed By: #### L IPID, T4, TSH, FT3, CMP #### [facility] [address] [address] [address] Maggy Irving ALP [Catalytic activity/Vol] 53 U/L Normal 46-116 [facility] Comment on above: Performed By: #### L IPID, T4, TSH, FT3, CMP #### [facility] [address] [place] [address] Dr. Maggy Irving ALT [Catalytic activity/Vol] 43 U/L Normal 16-63 [facility] Comment on above: Performed By: #### L IPID, T4, TSH, FT3, CMP #### [facility] [address] [place] [address] Dr. Maggy Irving Anion gap [Moles/Vol] 12.2 mmol/L Normal [facility] Comment on above: Performed By: #### L IPID, T4, TSH, FT3, CMP #### [facility] [address] [place] [address] Dr. Maggy Irving AST [Catalytic activity/Vol] 22 U/L Normal 15-37 [facility] Comment on above: Performed By: #### L IPID, T4, TSH, FT3, CMP #### [facility] [address] [place] [address] Dr. Maggy Irving Bilirubin [Mass/Vol] 0.6 mg/dL Normal 0.2-1.0 [facility] Comment on above: Performed By: #### L IPID, T4, TSH, FT3, CMP #### [facility] [address] [place] [address] Dr. Maggy Irving Calcium [Mass/Vol] 8.9 mg/dL Normal 8.5-10.1 [facility] Comment on above: Performed By: #### L IPID, T4, TSH, FT3, CMP #### [facility] [address] [place] [address] Dr. Maggy Irving Chloride [Moles/Vol] 104 mmol/L Normal 98-107 [facility] Comment on above: Performed By: #### L IPID, T4, TSH, FT3, CMP #### [facility] [address] [place] [address] Dr. Maggy Irving CO2 [Moles/Vol] 28.8 mmol/L Normal 21.0-32.0 [facility] Comment on above: Performed By: #### L IPID, T4, TSH, FT3, CMP #### [facility] [address] [address] [address] Maggy Irving Creatinine [Mass/Vol] 0.83 mg/dL Normal 0.70-1.30 [facility] Comment on above: Performed By: #### L IPID, T4, TSH, FT3, CMP #### [facility] [address] [address] [address] Maggy Irving EGFR-AF SAMOAN >60 Normal >=60 [facility] Comment on above: Performed By: #### L IPID, T4, TSH, FT3, CMP #### [facility] [address] [place] [address] Dr. Maggy Irving EGFR-NON AF SAMOAN >60 Normal >=60 [facility] Comment on above: Performed By: #### L IPID, T4, TSH, FT3, CMP #### [facility] [address] [place] [address] Dr. Maggy Irving Globulin (S) [Mass/Vol] 3.4 g/dL Normal [facility] Comment on above: Performed By: #### L IPID, T4, TSH, FT3, CMP #### [facility] [address] [place] [address] Dr. Maggy Irving Glucose [Mass/Vol] 116 mg/dL Critically high 74-106 T [facility] Comment on above: Performed By: #### L IPID, T4, TSH, FT3, CMP #### [facility] [address] [place] [address] Dr. Maggy Irving Potassium [Moles/Vol] 4.0 mmol/L Normal 3.5-5.1 [facility] Comment on above: Performed By: #### L IPID, T4, TSH, FT3, CMP #### [facility] [address] [address] [address] Maggy Irving Protein [Mass/Vol] 7.2 g/dL Normal 6.4-8.2 [facility] Comment on above: Performed By: #### L IPID, T4, TSH, FT3, CMP #### [facility] [address] [address] [address] Maggy Irving Sodium [Moles/Vol] 141 mmol/L Normal 136-145 [facility] Comment on above: Performed By: #### L IPID, T4, TSH, FT3, CMP #### [facility] [address] [place] [address] Dr. Maggy Irving Urea nitrogen [Mass/Vol] 17.0 mg/dL Normal 7.0-18.0 [facility] Comment on above: Performed By: #### L IPID, T4, TSH, FT3, CMP #### [facility] [address] [address] [address] Maggy Irving Urea nitrogen/Creatinine [Mass ratio] 20.5 mg/mg Normal [facility] Comment on above: Performed By: #### L IPID, T4, TSH, FT3, CMP #### [facility] [address] [address] [address] Maggy Irving TSHon 12-07-2022 TSH 5.531 uIU/mL Critically high 0.358-3.740 [facility] Comment on above: Performed By: #### L IPID, T4, TSH, FT3, CMP #### [facility] [address] [address] [address] Maggy Irving TESTOSTERONE, TOTALon 2021 Testosterone [Mass/Vol] 390 ng/dL Normal 264-916 [facility] Comment on above: Result Comment: Adul t male reference interval is based on a population of healthy nonobese males (BMI <30) between 19 and 39 years old. Reynaldo et.al. JCEM 2017,102;6971-0995. PMID: [id number]. Performed By: #### L IPID, T4, TSH, FT3, CMP #### [facility] [address] [place] [address] Dr. Maggy Irving CBC AUTO DIFFon 07-22-2022 BASO # 0.0 103/ul Normal 0.0-0.1 [facility] Comment on above: Performed By: #### L IPID, T4, TSH, FT3, CMP #### [facility] [address] [place] [address] Dr. Maggy Irving Basophils/100 WBC (Bld) 0.2 % Normal 0.2-2.0 [facility] Comment on above: Performed By: #### L IPID, T4, TSH, FT3, CMP #### [facility] [address] [place] [address] Dr. Maggy Irving EO # 0.2 103/ul Normal 0.0-0.7 [facility] Comment on above: Performed By: #### L IPID, T4, TSH, FT3, CMP #### [facility] [address] [place] [address] Dr. Maggy Irving Eosinophils/100 WBC (Bld) 3.1 % Normal 0.9-7.0 [facility] Comment on above: Performed By: #### L IPID, T4, TSH, FT3, CMP #### [facility] [address] [place] [address] Dr. Maggy Irving Erythrocyte distribution width (RBC) [Ratio] 12.3 % Normal 11.0-15.0 [facility] Comment on above: Performed By: #### L IPID, T4, TSH, FT3, CMP #### [facility] [address] [place] [address] Dr. Maggy Irving Hematocrit (Bld) [Volume fraction] 41.6 % Critically low 42.0-54.0 [facility] Comment on above: Performed By: #### L IPID, T4, TSH, FT3, CMP #### [facility] [address] [place] [address] Dr. Maggy Irving Hemoglobin (Bld) [Mass/Vol] 14.6 g/dL Normal 14.0-18.0 [facility] Comment on above: Performed By: #### L IPID, T4, TSH, FT3, CMP #### [facility] [address] [place] [address] Dr. Maggy Irving IG # 0.02 10e3/ul Normal 0.00-0.03 [facility] Comment on above: Performed By: #### L IPID, T4, TSH, FT3, CMP #### [facility] [address] [place] [address] Dr. Maggy Irving IG % 0.4 % Normal 0.0-0.5 [facility] Comment on above: Performed By: #### L IPID, T4, TSH, FT3, CMP #### [facility] [address] [place] [address] Dr. Maggy Irving LYMPH # 0.9 103/ul Critically low 1.2-3.8 [facility] Comment on above: Performed By: #### L IPID, T4, TSH, FT3, CMP #### [facility] [address] [place] [address] Dr. Maggy Irving Lymphocytes/100 WBC (Bld) 17.9 % Critically low 20.5-60.0 [facility] Comment on above: Performed By: #### L IPID, T4, TSH, FT3, CMP #### [facility] [address] [place] [address] Dr. Maggy Irving MANUAL DIFF REQ NO Normal [facility] Comment on above: Performed By: #### L IPID, T4, TSH, FT3, CMP #### [facility] [address] [place] [address] Dr. Maggy Irving MCH (RBC) [Entitic mass] 31.1 pg Normal 25.9-34.0 [facility] Comment on above: Performed By: #### L IPID, T4, TSH, FT3, CMP #### [facility] [address] [place] [address] Dr. Maggy Irving MCHC (RBC) [Mass/Vol] 35.1 g/dL Normal 29.9-35.2 [facility] Comment on above: Performed By: #### L IPID, T4, TSH, FT3, CMP #### [facility] [address] [place] [address] Dr. Maggy Irving MCV (RBC) [Entitic vol] 88.5 fL Normal 80.0-94.0 [facility] Comment on above: Performed By: #### L IPID, T4, TSH, FT3, CMP #### [facility] [address] [place] [address] Dr. Maggy Irving MONO # 0.4 103/ul Normal 0.3-0.8 [facility] Comment on above: Performed By: #### L IPID, T4, TSH, FT3, CMP #### [facility] [address] [place] [address] Dr. Magyg Irving Monocytes/100 WBC (Bld) 8.7 % Normal 1.7-12.0 [facility] Comment on above: Performed By: #### L IPID, T4, TSH, FT3, CMP #### [facility] [address] [place] [address] Dr. Maggy Irving NEUT # 3.4 103/ul Normal 1.4-6.5 [facility] Comment on above: Performed By: #### L IPID, T4, TSH, FT3, CMP #### [facility] [address] [place] [address] Dr. Maggy Irving Neutrophils/100 WBC (Bld) 69.7 % Normal 43.0-75.0 [facility] Comment on above: Performed By: #### L IPID, T4, TSH, FT3, CMP #### [facility] [address] [place] [address] Dr. Maggy Irving Platelet mean volume (Bld) [Entitic vol] 9.9 fL Normal 9.5-13.5 [facility] Comment on above: Performed By: #### L IPID, T4, TSH, FT3, CMP #### [facility] [address] [place] [address] Dr. Maggy Irving PLT 121 103/ul Critically low 150-450 [facility] Comment on above: Performed By: #### L IPID, T4, TSH, FT3, CMP #### [facility] [address] [place] [address] Dr. Maggy Irving RBC 4.70 106/ul Normal 4.70-6.10 [facility] Comment on above: Performed By: #### L IPID, T4, TSH, FT3, CMP #### [facility] [address] [address] [address] Maggy Irving WBC 4.8 103/ul Normal 4.0-11.0 [facility] Comment on above: Performed By: #### L IPID, T4, TSH, FT3, CMP #### [facility] [address] [address] [address] Maggy Irving FREE T3on 04-09-2022 FREE T3 3.15 pg/mlL Normal 2.18-3.98 [facility] Comment on above: Performed By: #### L IPID, T4, TSH, FT3, CMP #### [facility] [address] [place] [address] Dr. Maggy Irving GLYCOHEMOGLOBIN A1Con 2021 ADA RECOMMENDATION SEE BELOW Normal [facility] Comment on above: Result Comment: ADA RECOMMENDED LIMIT 4.0 - 6.0 ADA THERAPEUTIC TARGET < 7.0 ACTION SUGGESTED > 7.0 Performed By: #### L IPID, T4, TSH, FT3, CMP #### [facility] [address] [place] [address] Dr. Maggy Irving Glucose [Mass/Vol] 123 mg/dL Normal [facility] Comment on above: Performed By: #### L IPID, T4, TSH, FT3, CMP #### [facility] [address] [address] [address] Maggy Irving HbA1c (Bld) [Mass fraction] 5.9 % Normal 4.5-6.2 [facility] Comment on above: Performed By: #### L IPID, T4, TSH, FT3, CMP #### [facility] [address] [place] [address] Dr. Maggy Irving LIPID PROFILEon 04-09-2022 CHOL-HDL RATIO NORM SEE BELOW Normal [facility] Comment on above: Result Comment: 3.3 - 4.4 LOW RISK 4.4 - 7.1 AVERAGE RISK 7.1 - 11.0 MODERATE RISK >11.0 HIGH RISK Performed By: #### L IPID, T4, TSH, FT3, CMP #### [facility] [address] [place] [address] Dr. Maggy Irving Cholesterol [Mass/Vol] 174 mg/dL Normal <=200 [facility] Comment on above: Performed By: #### L IPID, T4, TSH, FT3, CMP #### [facility] [address] [place] [address] Dr. Maggy Irving Cholesterol in HDL [Mass/Vol] 36 mg/dL Critically low 40-60 [facility] Comment on above: Performed By: #### L IPID, T4, TSH, FT3, CMP #### [facility] [address] [place] [address] Dr. Maggy Irving Cholesterol in LDL [Mass/Vol] 114.4 mg/dL Normal [facility] Comment on above: Performed By: #### L IPID, T4, TSH, FT3, CMP #### [facility] [address] [place] [address] Dr. Maggy Irving Cholesterol.total/Ch olesterol in HDL [Mass ratio] 4.8 {ratio} Normal [facility] Comment on above: Performed By: #### L IPID, T4, TSH, FT3, CMP #### [facility] [address] [place] [address] Dr. Maggy Irving HDL NORMAL > or = 60 mg/dl - LO W CARDIOVASCULAR RISK <40 mg/dl - HIGH CARDIOVASCULAR RISK Normal [facility] Comment on above: Performed By: #### L IPID, T4, TSH, FT3, CMP #### [facility] [address] [place] [address] Dr. Maggy Irving LDL CALC NORMAL SEE BELOW Normal [facility] Comment on above: Result Comment: <100 mg/dl OPTIMAL 100 - 129 mg/dl NEAR OR ABOVE OPTIMAL 130 - 159 mg/dl BORDERLINE HIGH 160 - 189 mg/dl HIGH >190 mg/dl VERY HIGH Performed By: #### L IPID, T4, TSH, FT3, CMP #### [facility] [address] [address] [address] Maggy Irving Triglyceride [Mass/Vol] 118 mg/dL Normal <=150 [facility] Comment on above: Performed By: #### L IPID, T4, TSH, FT3, CMP #### [facility] [address] [address] [address] Maggy Irving VLDL CALC 23.6 mg/dL Normal [facility] Comment on above: Performed By: #### L IPID, T4, TSH, FT3, CMP #### [facility] [address] [place] [address] Dr. Maggy Irving OCC BLD IMMUNO SCREENon 03-20 OCCULT BLOOD Negative Normal NEGATIVE [facility] Comment on above: Performed By: #### O BSCRN #### [facility] [address] [place] [address] Dr. Maggy Irving PROF 14(COMP METB)on 022 Albumin [Mass/Vol] 3.6 g/dL Normal 3.4-5.0 [facility] Comment on above: Performed By: #### L IPID, T4, TSH, FT3, CMP #### [facility] [address] [address] [address] Maggy Irving Albumin/Globulin [Mass ratio] 1.1 {ratio} Normal [facility] Comment on above: Performed By: #### L IPID, T4, TSH, FT3, CMP #### [facility] [address] [address] [address] Maggy Irving ALP [Catalytic activity/Vol] 47 U/L Normal 46-116 [facility] Comment on above: Performed By: #### L IPID, T4, TSH, FT3, CMP #### [facility] [address] [address] [address] Maggy Irving ALT [Catalytic activity/Vol] 31 U/L Normal 16-63 [facility] Comment on above: Performed By: #### L IPID, T4, TSH, FT3, CMP #### [facility] [address] [place] [address] Dr. Maggy Irving Anion gap [Moles/Vol] 10.2 mmol/L Normal [facility] Comment on above: Performed By: #### L IPID, T4, TSH, FT3, CMP #### [facility] [address] [address] [address] Maggy Irving AST [Catalytic activity/Vol] 17 U/L Normal 15-37 [facility] Comment on above: Performed By: #### L IPID, T4, TSH, FT3, CMP #### [facility] [address] [address] [address] Maggy Irving Bilirubin [Mass/Vol] 0.6 mg/dL Normal 0.2-1.0 [facility] Comment on above: Performed By: #### L IPID, T4, TSH, FT3, CMP #### [facility] [address] [place] [address] Dr. Maggy Irving Calcium [Mass/Vol] 8.1 mg/dL Critically low 8.5-10.1 [facility] Comment on above: Performed By: #### L IPID, T4, TSH, FT3, CMP #### [facility] [address] [place] [address] Dr. Maggy Irving Chloride [Moles/Vol] 105 mmol/L Normal 98-107 [facility] Comment on above: Performed By: #### L IPID, T4, TSH, FT3, CMP #### [facility] [address] [place] [address] Dr. Maggy Irving CO2 [Moles/Vol] 29.6 mmol/L Normal 21.0-32.0 [facility] Comment on above: Performed By: #### L IPID, T4, TSH, FT3, CMP #### [facility] [address] [address] [address] Maggy Irving Creatinine [Mass/Vol] 0.89 mg/dL Normal 0.70-1.30 [facility] Comment on above: Performed By: #### L IPID, T4, TSH, FT3, CMP #### [facility] [address] [place] [address] Dr. Maggy Irving EGFR-AF SAMOAN >60 Normal >=60 [facility] Comment on above: Performed By: #### L IPID, T4, TSH, FT3, CMP #### [facility] [address] [address] [address] Maggy Irving EGFR-NON AF SAMOAN >60 Normal >=60 [facility] Comment on above: Performed By: #### L IPID, T4, TSH, FT3, CMP #### [facility] [address] [address] [address] Maggy Irving Globulin (S) [Mass/Vol] 3.2 g/dL Normal [facility] Comment on above: Performed By: #### L IPID, T4, TSH, FT3, CMP #### [facility] [address] [address] [address] Maggy Irving Glucose [Mass/Vol] 110 mg/dL Critically high 74-106 [facility] Comment on above: Performed By: #### L IPID, T4, TSH, FT3, CMP #### [facility] [address] [place] [address] Dr. Maggy Irving Potassium [Moles/Vol] 3.8 mmol/L Normal 3.5-5.1 [facility] Comment on above: Performed By: #### L IPID, T4, TSH, FT3, CMP #### [facility] [address] [place] [address] Dr. Maggy Irving Protein [Mass/Vol] 6.8 g/dL Normal 6.4-8.2 [facility] Comment on above: Performed By: #### L IPID, T4, TSH, FT3, CMP #### [facility] [address] [place] [address] Dr. Maggy Irving Sodium [Moles/Vol] 141 mmol/L Normal 136-145 [facility] Comment on above: Performed By: #### L IPID, T4, TSH, FT3, CMP #### [facility] [address] [place] [address] Dr. Maggy Irving Urea nitrogen [Mass/Vol] 17.0 mg/dL Normal 7.0-18.0 [facility] Comment on above: Performed By: #### L IPID, T4, TSH, FT3, CMP #### [facility] [address] [address] [address] Maggy Irving Urea nitrogen/Creatinine [Mass ratio] 19.1 mg/mg Normal [facility] Comment on above: Performed By: #### L IPID, T4, TSH, FT3, CMP #### [facility] [address] [address] [address] Maggy Irving T4on 04-09-2022 T4 [Mass/Vol] 7.90 ug/dL Normal 4.50-12.10 [facility] Comment on above: Performed By: #### L IPID, T4, TSH, FT3, CMP #### [facility] [address] [address] [address] Maggy Irving TSHon 04-09-2022 TSH 4.949 uIU/mL Critically high 0.358-3.740 [facility] Comment on above: Performed By: #### L IPID, T4, TSH, FT3, CMP #### [facility] [address] [address] [address] Maggy Irving Vital Signs Date Time Vital Sign Value Performing Clinician Zain asif 04-06-2024 09:43-0400 Body height 177.8 cm [facility] 04-06-2024 09:43-0400 Body mass index (BMI) [Ratio] 34.4 kg/m2 [facility] 04-06-2024 09:43-0400 Body temperature 98.3 [degF] [facility] 04-06-2024 09:43-0400 Body weight 109.08 kg [facility] 04-06-2024 09:43-0400 Diastolic blood pressure 78 mm[Hg] [facility] 04-06-2024 09:43-0400 Heart rate 87 /min [facility] 04-06-2024 09:43-0400 Respiratory rate 18 /min [facility] 04-06-2024 09:43-0400 SaO2% (BldA) [Mass fraction] 96 % [facility] 04-06-2024 09:43-0400 Systolic blood pressure 146 mm[Hg] [facility] Encounters Encounter Date Encounter Type Care Provider Facility Start: 06-04-2025 End: 06-04-2025 ambulatory Chirag STINSON Facility[facility] Start: 06-04-2025 End: 06-04-2025 Patient encounter procedure Chirag STINSON [facility] [place] Start: 05-07-2025 ambulatory Chirag STINSON Facility:[facility] [place] Start: 04-27-2024 End: 04-27-2024 ambulatory Marcella Gross [facility] Work Phone: Start: 04-27-2024 End: 04-27-2024 Departed Referred MD Marcella Gross Work Phone: [facility] Start: 04-06-2024 End: 04-06-2024 ambulatory [facility] Work Phone: Start: 04-06-2024 End: 04-06-2024 Patient encounter procedure [facility] Work Phone: Start: 02-10-2023 End: 02-11-2023 ambulatory IVELISSE ORNELAS Facility:[facility] Start: 02-07-2023 End: 02-07-2023 ambulatory IVELISSE ORNLEAS Facility:[facility] Start: 02-06-2023 Encounter for preprocedural laboratory examination IVELISSE ORNELAS [facility] Start: 01-31-2023 End: 02-01-[address] [...] L IPID, T4, TSH, FT3, CMP #### [facility] [address] [place] [address] Dr. Maggy Irving Amputation of fifth toe Gianni ael NILL Repair of inguinal hernia Mi chacristino NILL Immunizations Immunization Date Immunization Notes Care Provider Fa cili 09-10-2021 SARS-CoV-2 (COVID-19 ) mRNA-1273 vaccine Chirag STINSON [facility] [place] 12-26-2020 SARS-CoV-2 (COVID-19 ) Ad26 vaccine, recombinant Chirag NILL [facility] Comment on above: Result Comment: 2024: [id number] Payers Date Payer Category Payer Medicare [id number] 2025 Private Health Insurance [id number] 2024 Self-pay 1959 Medicare [id number] 1959 Unknown [id number] 1952 Unknown [id number] 2.16.84 [id number] 1952 Unknown [id number] 2.16.84 [id number] 1952 Unknown [id number] 2.16.84 0.1.725055.3.579.2.593 1952 Unknown [id number] 2.16.84 0.1.269866.3.579.2.593 1952 Unknown [id number] 2.16.84 0.1.375141.3.579.2.593 1952 Unknown [id number] 2.16.84 0.1.130035.3.579.2.593 1952 Unknown [id number] 2.16.84 0.1.990518.3.579.2.593 1952 Unknown [id number] 2.16.84 0.1.787844.3.579.2.593 1952 Unknown [id number] 2.16.84 0.1.799966.3.579.2.593 1952 Unknown [id number] 2.16.84 0.1.053273.3.579.2.593 1952 Unknown [id number] 2.16.84 0.1.635636.3.579.2.593 1952 Unknown [id number] 2.16.8 [id number] Medicare Medicare [id number] Unknown [id number] 2.16.8 [id number] Social History Date Type Detail [facility] Work Phone: Start: 1950 Sex Assigned At Male [facility] Start: 06-04-2025 Tobacco smoking status Never s moked tobacco (finding) [facility] [place] Tobacco smoking status Never Aishwarya [facility] [place] Sexual Orientation [facility] [place] Sex Assigned At Male [facility] Sex Male (finding) [facility] Clinical Note 06-04-2025 Note Date & Type [...] male with h/o htn, hyperlipidemia, neuropathy, hypothyroidism, Nxxidgu-Ecfei-Brivc disease, 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 Comment on above: Result Comment: [...] by: OLVIN KHANNA Date: 2023-02-07 09:41 [facility] Evaluation + Plan note Note Date & Type Note Facility Evaluation + Plan note No data available for this section [facility] [place] Evaluation note Note Date & Type Note Facility Evaluation note Diagnosis Onset Date Bacterial conjunctivitis of right eye [facility] Work Phone: Hospital Discharge instructions Note Date & Type Note Facility Hospital Discharge instructions No data available for this section [facility] [place] Progress note Note Date & Type Note Facility Progress note No data available for this section [facility] [place] Summary Purpose Family [...] and content) DATE CREATED AUTHOR 02/25/2023 [facility] [place] [facility] DATE CREATED AUTHOR AUTHOR'S ORGANIZ ATION 05/02/2024 [facility] DATE CREATED AUTHOR AUTHOR'S ORGANIZ ATION 06/05/2025 [facility] Care Teams (unrecognized sec tion and [...] PRIMARY CLINICAL RECORDS. [facility] provides no warranty or guarantee of the accuracy or completeness of information in this document.
== END 2025-07-02 13:27 | disposition home or self-care (01) ==
LOC: PST 13:26
PROVIDERS: PCP Family Medicine; Visit Provider Surgery
DX: Z01.818 Encounter for other preprocedural examination (principal); R19.5 Other fecal abnormalities

== ENCOUNTER 2025-07-02 13:37 | Outpatient (OUT) | payer MEDICARE, OTHER, SELFPAY ==
--- OUTSIDE RECORDS SUMMARY | 2025-07-02 13:46 | XMS_ITS | CCD ---
Author Organization [facility] Care Team Providers Care Director Of Assessment Name Role Phone CHEIKH ., DR NARANJO [...] Medication Allergies] Propensity to adverse reactions (disorder) [facility] Repository Medications Current Medications Medication [...] Other [facility] (current) drug therapy; Translations: [OTH STATISTICIAN THEORETICAL CURRENT DRUG THERAPY] Onset: 02-16-2023 Episodic Other [...] Marcella Gross MD Referring Physician - Marcella Gorss MD This Is Your Medications List Contact [...] are currently receiving treatment for. 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 Language Information Language assistance services are available as needed. Normal [facility] [place] 04-27-2024 L Specimen: Received: 04/30/24 Status: SOUT Req Num: [id number] Spec Type: Impression Subm Dr: Marcella Gross MD Tissues: PATHPER Procedures: PATHREVIEW Age/ Patient Sex Location Account Attending Physician Silvino Ojeda 74/M [place] [id number] Marcella Gross MD SPEC NUM: [id number] RECD: 04/30/24 STATUS: CASS REQ NUM: [id number] KAREN: 04/27/[address]: Marcella Gross MD ENTERED: 04/30/24 [facility] DR: SPEC TYPE: Impression DEPT: ALEXSANDRA Cervantes ENTERED BY: [id number] RECV BY: [id number] ORDERED: PATHREVIEW ORDERED: PATHREVIEW Pathologist Review Abnormal [...] shifted granulocytes, or granulocytic dysplasia observed CPT: 60877 -------- -------- Specimen: [id number] Received: 04/30/24 Status: CASS Moore Num: [id number] Spec Type: Impression Subm Dr: Marcella Gross MD Tissues: PATHPER Procedures: PATHREVIEW -------- Patient: Silvino Ojeda [id number] (Continued) -------- Signed (signature on file) Celia [...] Trimethoprim/Sulfamet hoxazole <=10 S F Normal [facility] Comment on above: Performed By: #### L IPID, T4, TSH, FT3, CMP #### [facility] [address] [address] [address] Maggy Irving FUNGAL CULTUREon 02-09-2023 Fungus Stain Final report Normal [facility] Comment on above: Performed By: #### L IPID, T4, TSH, FT3, CMP #### [facility] [address] [place] [address] Dr. Maggy Irving Result 1 Comment Normal [facility] Comment on above: Result Comment: SUDHIR/ Calcofluor preparation: no fungus observed. Performed By: #### L IPID, T4, TSH, FT3, CMP #### [facility] [address] [place] [address] Dr. Maggy Irving ACID FAST SMEAR AND CXon Acid Fast Smear Negative Normal [facility] Comment on above: Performed By: #### A FB #### [facility] [address] [place] [address] Dr. Maggy Irving [employer] Specimen Processing Tissue Grinding [facility] Comment on above: Performed By: #### A FB #### [facility] [address] [place] [address] Dr. Maggy Irving CULTURE ANAEROBICon 02-08-20 CULTURE ANAEROBIC Isolate 1 Finegoldia magna Light growth of Normal [facility] Comment on above: Result Comment: EVID ENCE BASED PRACTICE BY [facility] HAS DEMONSTRATED THAT FINEGOLDIA SPECIES ARE ROUTINELY SUSCEPTIBLE TO PIPERACILLIN-TAZOBACTAM, CEFOXITIN, ERTAPENEM, IMIPENEM METRONIDAZOLE AND VARIABLY RESISTANT TO CLINDAMYCIN. Performed By: #### L IPID, T4, TSH, FT3, CMP #### [facility] [address] [place] [address] Dr. Maggy MENDOZA STAINon 02-07-2023 COMMENTS NO ORGANISMS OBSERVED Normal [facility] Comment on above: Performed By: #### G STAIN #### [facility] [address] [place] [address] Dr. Maggy Irving DIPHTHEROIDS Normal [facility] Comment on above: Performed By: #### G STAIN #### [facility] [address] [place] [address] Dr. Maggy Irving EPITHELIALS Normal [facility] Comment on above: Performed By: #### G STAIN #### [facility] [address] [address] [address] Maggy Irving FUNGAL ELEMENTS Normal [facility] Comment on above: Performed By: #### G STAIN #### [facility] [address] [place] [address] Dr. Maggy Irving GRAM NEG BACILLI Normal [facility] Comment on above: Performed By: #### G STAIN #### [facility] [address] [place] [address] Dr. Maggy MENDOZA NEG DIPPLOCOCCI Normal [facility] Comment on above: Performed By: #### G STAIN #### [facility] [address] [place] [address] Dr. Maggy MENDOZA POS BACILLI Normal [facility] Comment on above: Performed By: #### G STAIN #### [facility] [address] [place] [address] Dr. Maggy Irving GRAM POSITIVE COCCI Normal [facility] Comment on above: Performed By: #### G STAIN #### [facility] [address] [place] [address] Dr. Maggy Irving GRAM STAIN SOURCE 5th Metatarsal Bone Normal [facility] Comment on above: Performed By: #### G STAIN #### [facility] [address] [place] [address] Dr. Maggy Irving GS_DIPTH Normal [facility] Comment on above: Performed By: #### G STAIN #### [facility] [address] [place] [address] Dr. Maggy Irving WBC RARE Normal [facility] Comment on above: Performed By: #### G STAIN #### [facility] [address] [place] [address] Dr. Maggy Irving POINT OF CARE GLUCOSEon 01-18 Glucose [Mass/Vol] 114 mg/dL Critically high 74-106 [facility] Comment on above: Performed By: #### P OCGLUC #### [facility] [address] [place] [address] Dr. Maggy Irving Glucose [Mass/Vol] 122 mg/dL Critically high 74-106 [facility] Comment on above: Performed By: #### P OCGLUC #### [facility] [address] [place] [address] Dr. Maggy Irving PROF CHEM 8 (BAS METB)on Anion gap [Moles/Vol] 12.0 mmol/L Normal [facility] Comment on above: Performed By: #### L IPID, T4, TSH, FT3, CMP #### [facility] [address] [place] [address] Dr. Maggy Irving Calcium [Mass/Vol] 8.7 mg/dL Normal 8.5-10.1 [facility] Comment on above: Performed By: #### L IPID, T4, TSH, FT3, CMP #### [facility] [address] [place] [address] Dr. Maggy Irving Chloride [Moles/Vol] 104 mmol/L Normal 98-107 [facility] Comment on above: Performed By: #### L IPID, T4, TSH, FT3, CMP #### [facility] [address] [place] [address] Dr. Maggy Irving CO2 [Moles/Vol] 28.1 mmol/L Normal 21.0-32.0 [facility] Comment on above: Performed By: #### L IPID, T4, TSH, FT3, CMP #### [facility] [address] [place] [address] Dr. Maggy Irving Creatinine [Mass/Vol] 0.80 mg/dL Normal 0.70-1.30 [facility] Comment on above: Performed By: #### L IPID, T4, TSH, FT3, CMP #### [facility] [address] [address] [address] Maggy Irving EGFR-AF MACANESE >60 Normal >=60 [facility] Comment on above: Performed By: #### L IPID, T4, TSH, FT3, CMP #### [facility] [address] [place] [address] Dr. Maggy Irving EGFR-NON AF MACANESE >60 Normal >=60 [facility] Comment on above: Performed By: #### L IPID, T4, TSH, FT3, CMP #### [facility] [address] [place] [address] Dr. Maggy Irving Glucose [Mass/Vol] 129 mg/dL Critically high 74-106 T [facility] Comment on above: Performed By: #### L IPID, T4, TSH, FT3, CMP #### [facility] [address] [place] [address] Dr. Maggy Irving Potassium [Moles/Vol] 4.1 mmol/L Normal 3.5-5.1 [facility] Comment on above: Performed By: #### L IPID, T4, TSH, FT3, CMP #### [facility] [address] [place] [address] Dr. Maggy Irving Sodium [Moles/Vol] 140 mmol/L Normal 136-145 [facility] Comment on above: Performed By: #### L IPID, T4, TSH, FT3, CMP #### [facility] [address] [place] [address] Dr. Maggy Irving Urea nitrogen [Mass/Vol] 20.0 mg/dL Critically high 7.0-18.0 [facility] Comment on above: Performed By: #### L IPID, T4, TSH, FT3, CMP #### [facility] [address] [place] [address] Dr. Maggy Irving Urea nitrogen/Creatinine [Mass ratio] 25.0 mg/mg Normal [facility] Comment on above: Performed By: #### L IPID, T4, TSH, FT3, CMP #### [facility] [address] [address] [address] Maggy Irving FREE T3on 01-07-2023 FREE T3 3.24 pg/mlL Normal 2.18-3.98 [facility] Comment on above: Performed By: #### L IPID, T4, TSH, FT3, CMP #### [facility] [address] [address] [address] Maggy Irving T4on 01-07-2023 T4 [Mass/Vol] 9.10 ug/dL Normal 4.50-12.10 [facility] Comment on above: Performed By: #### L IPID, T4, TSH, FT3, CMP #### [facility] [address] [address] [address] Maggy Irving TSHon 01-07-2023 TSH 5.957 uIU/mL Critically high 0.358-3.740 [facility] Comment on above: Performed By: #### L IPID, T4, TSH, FT3, CMP #### [facility] [address] [address] [address] Maggy Irving NM STRESS/REST MULTIon 01-03 NM STRESS/REST MULTI Patient: SILVINO OJEDA Exam Date: 01/03/2023 : 1950 Gender:M Ordering : DR MARCELLA GROSS . Admission #: [id number] Family : Order #: [id number] CLICK HERE TO VIEW EXAM RADIOLOGY REPORT [...] Khanna M.D. on 01/04/2023 at 07:45 Normal [facility] ECHOCARDIO M/2D COMPLETEon 0 12-21-2022 ECHOCARDIO M/2D COMPLETE Patient: SILVINO OJEDA Exam Date: 12/21/2022 : 1950 Gender:M Ordering : DR MARCELLA GROSS . Admission #: [id number] Family : Order #: [id number] CLICK HERE TO VIEW EXAM ECHOCARDIOGRAM REPORT [...] Pressure: 56.71 ml, 56.71 ml Dictated by: eDz Ling M.D. on 12/23/2022 at 17:54 Approved by: Dez Ling M.D. on 12/23/2022 at 18:05 Normal [facility] BNPon 12-07-2022 Natriuretic peptide B (Bld) [Mass/Vol] 37.0 pg/mL Normal <=900.0 [facility] Comment on above: Performed By: #### L IPID, T4, TSH, FT3, CMP #### [facility] [address] [place] [address] Dr. Maggy Irving CBC AUTO DIFFon 12-07-2022 BASO # 0.0 103/ul Normal 0.0-0.1 [facility] Comment on above: Performed By: #### L IPID, T4, TSH, FT3, CMP #### [facility] [address] [place] [address] Dr. Maggy Irving Basophils/100 WBC (Bld) 0.2 % Normal 0.2-2.0 [facility] Comment on above: Performed By: #### L IPID, T4, TSH, FT3, CMP #### [facility] [address] [place] [address] Dr. Maggy Irving EO # 0.2 103/ul Normal 0.0-0.7 [facility] Comment on above: Performed By: #### L IPID, T4, TSH, FT3, CMP #### [facility] [address] [place] [address] Dr. Maggy Irving Eosinophils/100 WBC (Bld) 3.7 % Normal 0.9-7.0 [facility] Comment on above: Performed By: #### L IPID, T4, TSH, FT3, CMP #### [facility] [address] [place] [address] Dr. Maggy Irving Erythrocyte distribution width (RBC) [Ratio] 11.9 % Normal 11.0-15.0 [facility] Comment on above: Performed By: #### L IPID, T4, TSH, FT3, CMP #### [facility] [address] [place] [address] Dr. Maggy Irving Hematocrit (Bld) [Volume fraction] 39.7 % Critically low 42.0-54.0 [facility] Comment on above: Performed By: #### L IPID, T4, TSH, FT3, CMP #### [facility] [address] [place] [address] Dr. Maggy Irving Hemoglobin (Bld) [Mass/Vol] 14.0 g/dL Normal 14.0-18.0 [facility] Comment on above: Performed By: #### L IPID, T4, TSH, FT3, CMP #### [facility] [address] [place] [address] Dr. Maggy Irving IG # 0.02 10e3/ul Normal 0.00-0.03 [facility] Comment on above: Performed By: #### L IPID, T4, TSH, FT3, CMP #### [facility] [address] [place] [address] Dr. Maggy Irving IG % 0.5 % Normal 0.0-0.5 [facility] Comment on above: Performed By: #### L IPID, T4, TSH, FT3, CMP #### [facility] [address] [place] [address] Dr. Maggy Irving LYMPH # 0.9 103/ul Critically low 1.2-3.8 [facility] Comment on above: Performed By: #### L IPID, T4, TSH, FT3, CMP #### [facility] [address] [place] [address] Dr. Maggy Irving Lymphocytes/100 WBC (Bld) 21.1 % Normal 20.5-60.0 [facility] Comment on above: Performed By: #### L IPID, T4, TSH, FT3, CMP #### [facility] [address] [place] [address] Dr. Maggy Irving MANUAL DIFF REQ NO Normal [facility] Comment on above: Performed By: #### L IPID, T4, TSH, FT3, CMP #### [facility] [address] [place] [address] Dr. Maggy Irving MCH (RBC) [Entitic mass] 30.5 pg Normal 25.9-34.0 [facility] Comment on above: Performed By: #### L IPID, T4, TSH, FT3, CMP #### [facility] [address] [place] [address] Dr. Maggy Irving MCHC (RBC) [Mass/Vol] 35.3 g/dL Critically high 29.9-35.2 [facility] Comment on above: Performed By: #### L IPID, T4, TSH, FT3, CMP #### [facility] [address] [place] [address] Dr. Maggy Irving MCV (RBC) [Entitic vol] 86.5 fL Normal 80.0-94.0 [facility] Comment on above: Performed By: #### L IPID, T4, TSH, FT3, CMP #### [facility] [address] [place] [address] Dr. Maggy Irving MONO # 0.4 103/ul Normal 0.3-0.8 [facility] Comment on above: Performed By: #### L IPID, T4, TSH, FT3, CMP #### [facility] [address] [place] [address] Dr. Maggy Irving Monocytes/100 WBC (Bld) 8.7 % Normal 1.7-12.0 [facility] Comment on above: Performed By: #### L IPID, T4, TSH, FT3, CMP #### [facility] [address] [place] [address] Dr. Maggy Irving NEUT # 2.9 103/ul Normal 1.4-6.5 [facility] Comment on above: Performed By: #### L IPID, T4, TSH, FT3, CMP #### [facility] [address] [place], [place] [id number] Dr. Maggy Irving Neutrophils/100 WBC (Bld) 65.8 % Normal 43.0-75.0 [facility] Comment on above: Performed By: #### L IPID, T4, TSH, FT3, CMP #### [facility] [address] [place] [address] Dr. Maggy Irving Platelet mean volume (Bld) [Entitic vol] 9.9 fL Normal 9.5-13.5 [facility] Comment on above: Performed By: #### L IPID, T4, TSH, FT3, CMP #### [facility] [address] [place] [address] Dr. Maggy Irving PLT 128 103/ul Critically low 150-450 [facility] Comment on above: Performed By: #### L IPID, T4, TSH, FT3, CMP #### [facility] [address] [place] [address] Dr. Maggy Irving RBC 4.59 106/ul Critically low 4.70-6.10 [facility] Comment on above: Performed By: #### L IPID, T4, TSH, FT3, CMP #### [facility] [address] [place] [address] Dr. Maggy Irving WBC 4.4 103/ul Normal 4.0-11.0 [facility] Comment on above: Performed By: #### L IPID, T4, TSH, FT3, CMP #### [facility] [address] [place] [address] Dr. Maggy Irving FREE THYROXINE INDEX T7on FTI 2.72 Normal 1.30-4.50 [facility] Comment on above: Performed By: #### L IPID, T4, TSH, FT3, CMP #### [facility] [address] [place] [address] Dr. Maggy Irving T3U 34.0 % Normal 33.0-40.0 [facility] Comment on above: Performed By: #### L IPID, T4, TSH, FT3, CMP #### [facility] [address] [place] [address] Dr. Maggy Irving T4 [Mass/Vol] 8.00 ug/dL Normal 4.50-12.10 [facility] Comment on above: Performed By: #### L IPID, T4, TSH, FT3, CMP #### [facility] [address] [address] [address] Maggy Irving IRONon 12-07-2022 Iron [Mass/Vol] 134.0 ug/dL Normal 65.0-175.0 [facility] Comment on above: Performed By: #### L IPID, T4, TSH, FT3, CMP #### [facility] [address] [address] [address] Maggy Irving LIPID PROFILEon 12-07-2022 CHOL-HDL RATIO NORM SEE BELOW Normal [facility] Comment on above: Result Comment: 3.3 - 4.4 LOW RISK 4.4 - 7.1 AVERAGE RISK 7.1 - 11.0 MODERATE RISK >11.0 HIGH RISK Performed By: #### L IPID, T4, TSH, FT3, CMP #### [facility] [address] [address] [address] Maggy Irving Cholesterol [Mass/Vol] 180 mg/dL Normal <=200 [facility] Comment on above: Performed By: #### L IPID, T4, TSH, FT3, CMP #### [facility] [address] [address] [address] Maggy Irving Cholesterol in HDL [Mass/Vol] 37 mg/dL Critically low 40-60 [facility] Comment on above: Performed By: #### L IPID, T4, TSH, FT3, CMP #### [facility] [address] [address] [address] Maggy Irving Cholesterol in LDL [Mass/Vol] 95.2 mg/dL Normal [facility] Comment on above: Performed By: #### L IPID, T4, TSH, FT3, CMP #### [facility] [address] [address] [address] Maggy Irving Cholesterol.total/Ch olesterol in HDL [Mass ratio] 4.9 {ratio} Normal [facility] Comment on above: Performed By: #### L IPID, T4, TSH, FT3, CMP #### [facility] [address] [address] [address] Maggy Irving HDL NORMAL > or = 60 mg/dl - LO W CARDIOVASCULAR RISK <40 mg/dl - HIGH CARDIOVASCULAR RISK Normal [facility] Comment on above: Performed By: #### L IPID, T4, TSH, FT3, CMP #### [facility] [address] [address] [address] Maggy Irving LDL CALC NORMAL SEE BELOW Normal [facility] Comment on above: Result Comment: <100 mg/dl OPTIMAL 100 - 129 mg/dl NEAR OR ABOVE OPTIMAL 130 - 159 mg/dl BORDERLINE HIGH 160 - 189 mg/dl HIGH >190 mg/dl VERY HIGH Performed By: #### L IPID, T4, TSH, FT3, CMP #### [facility] [address] [address] [address] Maggy Irving Triglyceride [Mass/Vol] 239 mg/dL Critically high <=150 [facility] Comment on above: Performed By: #### L IPID, T4, TSH, FT3, CMP #### [facility] [address] [address] [address] Maggy Irving VLDL CALC 47.8 mg/dL Normal [facility] Comment on above: Performed By: #### L IPID, T4, TSH, FT3, CMP #### [facility] [address] [address] [address] Maggy Irving PROF 14(COMP METB)on 023 Albumin [Mass/Vol] 3.8 g/dL Normal 3.4-5.0 [facility] Comment on above: Performed By: #### L IPID, T4, TSH, FT3, CMP #### [facility] [address] [address] [address] Maggy Irving Albumin/Globulin [Mass ratio] 1.1 {ratio} Normal [facility] Comment on above: Performed By: #### L IPID, T4, TSH, FT3, CMP #### [facility] [address] [address] [address] Maggy Irving ALP [Catalytic activity/Vol] 53 U/L Normal 46-116 [facility] Comment on above: Performed By: #### L IPID, T4, TSH, FT3, CMP #### [facility] [address] [place] [address] Dr. Maggy Irving ALT [Catalytic activity/Vol] 43 U/L Normal 16-63 [facility] Comment on above: Performed By: #### L IPID, T4, TSH, FT3, CMP #### [facility] [address] [place] [address] Dr. Maggy Irvnig Anion gap [Moles/Vol] 12.2 mmol/L Normal [facility] Comment on above: Performed By: #### L IPID, T4, TSH, FT3, CMP #### [facility] [address] [place] [address] Dr. Maggy Irving AST [Catalytic activity/Vol] 22 U/L Normal 15-37 [facility] Comment on above: Performed By: #### L IPID, T4, TSH, FT3, CMP #### [facility] [address] [place] [address] Dr. Maggy Irving Bilirubin [Mass/Vol] 0.6 mg/dL Normal 0.2-1.0 [facility] Comment on above: Performed By: #### L IPID, T4, TSH, FT3, CMP #### [facility] [address] [place] [address] Dr. Maggy Irving Calcium [Mass/Vol] 8.9 mg/dL Normal 8.5-10.1 [facility] Comment on above: Performed By: #### L IPID, T4, TSH, FT3, CMP #### [facility] [address] [place] [address] Dr. Maggy Irving Chloride [Moles/Vol] 104 mmol/L Normal 98-107 [facility] Comment on above: Performed By: #### L IPID, T4, TSH, FT3, CMP #### [facility] [address] [place] [address] Dr. Maggy Irving CO2 [Moles/Vol] 28.8 mmol/L Normal 21.0-32.0 [facility] Comment on above: Performed By: #### L IPID, T4, TSH, FT3, CMP #### [facility] [address] [address] [address] Maggy Irving Creatinine [Mass/Vol] 0.83 mg/dL Normal 0.70-1.30 [facility] Comment on above: Performed By: #### L IPID, T4, TSH, FT3, CMP #### [facility] [address] [address] [address] Maggy Irving EGFR-AF MACANESE >60 Normal >=60 [facility] Comment on above: Performed By: #### L IPID, T4, TSH, FT3, CMP #### [facility] [address] [place] [address] Dr. Maggy Irving EGFR-NON AF MACANESE >60 Normal >=60 [facility] Comment on above: Performed By: #### L IPID, T4, TSH, FT3, CMP #### [facility] [address] [place] [address] Dr. Maggy Irving Globulin (S) [Mass/Vol] 3.4 g/dL Normal [facility] Comment on above: Performed By: #### L IPID, T4, TSH, FT3, CMP #### [facility] [address] [place] [address] Dr. Maggy Irving Glucose [Mass/Vol] 116 mg/dL Critically high 74-106 T [facility] Comment on above: Performed By: #### L IPID, T4, TSH, FT3, CMP #### [facility] [address] [place] [address] Dr. Maggy Irving Potassium [Moles/Vol] 4.0 mmol/L Normal 3.5-5.1 [facility] Comment on above: Performed By: #### L IPID, T4, TSH, FT3, CMP #### [facility] [address] [address] [address] Maggy Irving Protein [Mass/Vol] 7.2 g/dL Normal 6.4-8.2 [facility] Comment on above: Performed By: #### L IPID, T4, TSH, FT3, CMP #### [facility] [address] [address] [address] Maggy Irving Sodium [Moles/Vol] 141 mmol/L Normal 136-145 [facility] Comment on above: Performed By: #### L IPID, T4, TSH, FT3, CMP #### [facility] [address] [address] [address] Maggy Irving Urea nitrogen [Mass/Vol] 17.0 mg/dL Normal 7.0-18.0 [facility] Comment on above: Performed By: #### L IPID, T4, TSH, FT3, CMP #### [facility] [address] [address] [address] Maggy Irving Urea nitrogen/Creatinine [Mass ratio] 20.5 mg/mg Normal [facility] Comment on above: Performed By: #### L IPID, T4, TSH, FT3, CMP #### [facility] [address] [address] [address] Maggy Irving TSHon 12-07-2022 TSH 5.531 uIU/mL Critically high 0.358-3.740 [facility] Comment on above: Performed By: #### L IPID, T4, TSH, FT3, CMP #### [facility] [address] [address] [address] Maggy Irving TESTOSTERONE, TOTALon 2021 Testosterone [Mass/Vol] 390 ng/dL Normal 264-916 [facility] Comment on above: Result Comment: Adul t male reference interval is based on a population of healthy nonobese males (BMI <30) between 19 and 39 years old. Reynaldo et.al. JCEM 2017,102;[id number]. PMID: [id number]. Performed By: #### L IPID, T4, TSH, FT3, CMP #### [facility] [address] [place] [address] Dr. Maggy Irving CBC AUTO DIFFon 07-22-2022 BASO # 0.0 103/ul Normal 0.0-0.1 [facility] Comment on above: Performed By: #### L IPID, T4, TSH, FT3, CMP #### [facility] [address] [place] [address] Dr. Maggy Irving Basophils/100 WBC (Bld) 0.2 % Normal 0.2-2.0 [facility] Comment on above: Performed By: #### L IPID, T4, TSH, FT3, CMP #### [facility] [address] [place] [address] Dr. Maggy Irving EO # 0.2 103/ul Normal 0.0-0.7 [facility] Comment on above: Performed By: #### L IPID, T4, TSH, FT3, CMP #### [facility] [address] [place] [address] Dr. Maggy Irving Eosinophils/100 WBC (Bld) 3.1 % Normal 0.9-7.0 [facility] Comment on above: Performed By: #### L IPID, T4, TSH, FT3, CMP #### [facility] [address] [place] [address] Dr. Maggy Irving Erythrocyte distribution width (RBC) [Ratio] 12.3 % Normal 11.0-15.0 [facility] Comment on above: Performed By: #### L IPID, T4, TSH, FT3, CMP #### [facility] [address] [place] [address] Dr. Maggy Irving Hematocrit (Bld) [Volume fraction] 41.6 % Critically low 42.0-54.0 [facility] Comment on above: Performed By: #### L IPID, T4, TSH, FT3, CMP #### [facility] [address] [place] [address] Dr. Maggy Irving Hemoglobin (Bld) [Mass/Vol] 14.6 g/dL Normal 14.0-18.0 [facility] Comment on above: Performed By: #### L IPID, T4, TSH, FT3, CMP #### [facility] [address] [place] [address] Dr. Maggy Irving IG # 0.02 10e3/ul Normal 0.00-0.03 [facility] Comment on above: Performed By: #### L IPID, T4, TSH, FT3, CMP #### [facility] [address] [place] [address] Dr. Mgagy Irving IG % 0.4 % Normal 0.0-0.5 [facility] Comment on above: Performed By: #### L IPID, T4, TSH, FT3, CMP #### [facility] [address] [place] [address] Dr. Maggy Irving LYMPH # 0.9 103/ul Critically low 1.2-3.8 [facility] Comment on above: Performed By: #### L IPID, T4, TSH, FT3, CMP #### [facility] [address] [place] [address] Dr. Maggy Irving Lymphocytes/100 WBC (Bld) 17.9 % Critically low 20.5-60.0 [facility] Comment on above: Performed By: #### L IPID, T4, TSH, FT3, CMP #### [facility] [address] [place] [address] Dr. Maggy Irving MANUAL DIFF REQ NO Normal [facility] Comment on above: Performed By: #### L IPID, T4, TSH, FT3, CMP #### [facility] [address] [place] [address] Dr. Maggy Irving MCH (RBC) [Entitic mass] 31.1 pg Normal 25.9-34.0 [facility] Comment on above: Performed By: #### L IPID, T4, TSH, FT3, CMP #### [facility] [address] [place] [address] Dr. Maggy Irving MCHC (RBC) [Mass/Vol] 35.1 g/dL Normal 29.9-35.2 [facility] Comment on above: Performed By: #### L IPID, T4, TSH, FT3, CMP #### [facility] [address] [place] [address] Dr. Maggy Irving MCV (RBC) [Entitic vol] 88.5 fL Normal 80.0-94.0 [facility] Comment on above: Performed By: #### L IPID, T4, TSH, FT3, CMP #### [facility] [address] [place] [address] Dr. Maggy Irving MONO # 0.4 103/ul Normal 0.3-0.8 [facility] Comment on above: Performed By: #### L IPID, T4, TSH, FT3, CMP #### [facility] [address] [place] [address] Dr. Maggy Irving Monocytes/100 WBC (Bld) 8.7 % Normal 1.7-12.0 [facility] Comment on above: Performed By: #### L IPID, T4, TSH, FT3, CMP #### [facility] [address] [place] [address] Dr. Maggy Irving NEUT # 3.4 103/ul Normal 1.4-6.5 [facility] Comment on above: Performed By: #### L IPID, T4, TSH, FT3, CMP #### [facility] [address] [place] [address] Dr. Maggy Irving Neutrophils/100 WBC (Bld) 69.7 % Normal 43.0-75.0 [facility] Comment on above: Performed By: #### L IPID, T4, TSH, FT3, CMP #### [facility] [address] [place] [address] Dr. Maggy Irving Platelet mean volume (Bld) [Entitic vol] 9.9 fL Normal 9.5-13.5 [facility] Comment on above: Performed By: #### L IPID, T4, TSH, FT3, CMP #### [facility] [address] [place] [address] Dr. Maggy Irving PLT 121 103/ul Critically low 150-450 [facility] Comment on above: Performed By: #### L IPID, T4, TSH, FT3, CMP #### [facility] [address] [place] [address] Dr. Maggy Irving RBC 4.70 106/ul Normal 4.70-6.10 [facility] Comment on above: Performed By: #### L IPID, T4, TSH, FT3, CMP #### [facility] [address] [address] [address] Maggy Irving WBC 4.8 103/ul Normal 4.0-11.0 [facility] Comment on above: Performed By: #### L IPID, T4, TSH, FT3, CMP #### [facility] [address] [address] [address] Maggy Irving FREE T3on 04-09-2022 FREE T3 3.15 pg/mlL Normal 2.18-3.98 [facility] Comment on above: Performed By: #### L IPID, T4, TSH, FT3, CMP #### [facility] [address] [place] [address] Dr. Maggy Irving GLYCOHEMOGLOBIN A1Con 2021 ADA RECOMMENDATION SEE BELOW Normal [facility] Comment on above: Result Comment: ADA RECOMMENDED LIMIT 4.0 - 6.0 ADA THERAPEUTIC TARGET < 7.0 ACTION SUGGESTED > 7.0 Performed By: #### L IPID, T4, TSH, FT3, CMP #### [facility] [address] [place] [address] Dr. Maggy Irving Glucose [Mass/Vol] 123 mg/dL Normal [facility] Comment on above: Performed By: #### L IPID, T4, TSH, FT3, CMP #### [facility] [address] [address] [address] Maggy Irving HbA1c (Bld) [Mass fraction] 5.9 % Normal 4.5-6.2 [facility] Comment on above: Performed By: #### L IPID, T4, TSH, FT3, CMP #### [facility] [address] [place] [address] Dr. Maggy Irving LIPID PROFILEon 04-09-2022 CHOL-HDL RATIO NORM SEE BELOW Normal [facility] Comment on above: Result Comment: 3.3 - 4.4 LOW RISK 4.4 - 7.1 AVERAGE RISK 7.1 - 11.0 MODERATE RISK >11.0 HIGH RISK Performed By: #### L IPID, T4, TSH, FT3, CMP #### [facility] [address] [place] [address] Dr. Maggy Irving Cholesterol [Mass/Vol] 174 mg/dL Normal <=200 [facility] Comment on above: Performed By: #### L IPID, T4, TSH, FT3, CMP #### [facility] [address] [place] [address] Dr. Maggy Irving Cholesterol in HDL [Mass/Vol] 36 mg/dL Critically low 40-60 [facility] Comment on above: Performed By: #### L IPID, T4, TSH, FT3, CMP #### [facility] [address] [place] [address] Dr. Maggy Irving Cholesterol in LDL [Mass/Vol] 114.4 mg/dL Normal [facility] Comment on above: Performed By: #### L IPID, T4, TSH, FT3, CMP #### [facility] [address] [place] [address] Dr. Maggy Irving Cholesterol.total/Ch olesterol in HDL [Mass ratio] 4.8 {ratio} Normal [facility] Comment on above: Performed By: #### L IPID, T4, TSH, FT3, CMP #### [facility] [address] [place] [address] Dr. Maggy Irving HDL NORMAL > or = 60 mg/dl - LO W CARDIOVASCULAR RISK <40 mg/dl - HIGH CARDIOVASCULAR RISK Normal [facility] Comment on above: Performed By: #### L IPID, T4, TSH, FT3, CMP #### [facility] [address] [place] [address] Dr. Maggy Irving LDL CALC NORMAL SEE BELOW Normal [facility] Comment on above: Result Comment: <100 mg/dl OPTIMAL 100 - 129 mg/dl NEAR OR ABOVE OPTIMAL 130 - 159 mg/dl BORDERLINE HIGH 160 - 189 mg/dl HIGH >190 mg/dl VERY HIGH Performed By: #### L IPID, T4, TSH, FT3, CMP #### [facility] [address] [address] [address] Maggy Irving Triglyceride [Mass/Vol] 118 mg/dL Normal <=150 [facility] Comment on above: Performed By: #### L IPID, T4, TSH, FT3, CMP #### [facility] [address] [address] [address] Maggy Irving VLDL CALC 23.6 mg/dL Normal [facility] Comment on above: Performed By: #### L IPID, T4, TSH, FT3, CMP #### [facility] [address] [place] [address] Dr. Maggy Irving OCC BLD IMMUNO SCREENon 03-20 OCCULT BLOOD Negative Normal NEGATIVE [facility] Comment on above: Performed By: #### O BSCRN #### [facility] [address] [place] [address] Dr. Maggy Irving PROF 14(COMP METB)on 022 Albumin [Mass/Vol] 3.6 g/dL Normal 3.4-5.0 [facility] Comment on above: Performed By: #### L IPID, T4, TSH, FT3, CMP #### [facility] [address] [address] [address] Maggy Irving Albumin/Globulin [Mass ratio] 1.1 {ratio} Normal [facility] Comment on above: Performed By: #### L IPID, T4, TSH, FT3, CMP #### [facility] [address] [address] [address] Maggy Irving ALP [Catalytic activity/Vol] 47 U/L Normal 46-116 [facility] Comment on above: Performed By: #### L IPID, T4, TSH, FT3, CMP #### [facility] [address] [address] [address] Maggy Irving ALT [Catalytic activity/Vol] 31 U/L Normal 16-63 [facility] Comment on above: Performed By: #### L IPID, T4, TSH, FT3, CMP #### [facility] [address] [place] [address] Dr. Maggy Irving Anion gap [Moles/Vol] 10.2 mmol/L Normal [facility] Comment on above: Performed By: #### L IPID, T4, TSH, FT3, CMP #### [facility] [address] [address] [address] Maggy Irving AST [Catalytic activity/Vol] 17 U/L Normal 15-37 [facility] Comment on above: Performed By: #### L IPID, T4, TSH, FT3, CMP #### [facility] [address] [address] [address] Maggy Irving Bilirubin [Mass/Vol] 0.6 mg/dL Normal 0.2-1.0 [facility] Comment on above: Performed By: #### L IPID, T4, TSH, FT3, CMP #### [facility] [address] [place] [address] Dr. Maggy Irving Calcium [Mass/Vol] 8.1 mg/dL Critically low 8.5-10.1 [facility] Comment on above: Performed By: #### L IPID, T4, TSH, FT3, CMP #### [facility] [address] [place] [address] Dr. Maggy Irving Chloride [Moles/Vol] 105 mmol/L Normal 98-107 [facility] Comment on above: Performed By: #### L IPID, T4, TSH, FT3, CMP #### [facility] [address] [place] [address] Dr. Maggy Irving CO2 [Moles/Vol] 29.6 mmol/L Normal 21.0-32.0 [facility] Comment on above: Performed By: #### L IPID, T4, TSH, FT3, CMP #### [facility] [address] [address] [address] Maggy Irving Creatinine [Mass/Vol] 0.89 mg/dL Normal 0.70-1.30 [facility] Comment on above: Performed By: #### L IPID, T4, TSH, FT3, CMP #### [facility] [address] [place] [address] Dr. Maggy Irving EGFR-AF MACANESE >60 Normal >=60 [facility] Comment on above: Performed By: #### L IPID, T4, TSH, FT3, CMP #### [facility] [address] [address] [address] Maggy Irving EGFR-NON AF MACANESE >60 Normal >=60 [facility] Comment on above: Performed By: #### L IPID, T4, TSH, FT3, CMP #### [facility] [address] [address] [address] Maggy Irving Globulin (S) [Mass/Vol] 3.2 g/dL Normal [facility] Comment on above: Performed By: #### L IPID, T4, TSH, FT3, CMP #### [facility] [address] [address] [address] Maggy Irving Glucose [Mass/Vol] 110 mg/dL Critically high 74-106 [facility] Comment on above: Performed By: #### L IPID, T4, TSH, FT3, CMP #### [facility] [address] [place] [address] Dr. Maggy Irving Potassium [Moles/Vol] 3.8 mmol/L Normal 3.5-5.1 [facility] Comment on above: Performed By: #### L IPID, T4, TSH, FT3, CMP #### [facility] [address] [place] [address] Dr. Maggy Irving Protein [Mass/Vol] 6.8 g/dL Normal 6.4-8.2 [facility] Comment on above: Performed By: #### L IPID, T4, TSH, FT3, CMP #### [facility] [address] [place] [address] Dr. Maggy Irving Sodium [Moles/Vol] 141 mmol/L Normal 136-145 [facility] Comment on above: Performed By: #### L IPID, T4, TSH, FT3, CMP #### [facility] [address] [place] [address] Dr. Maggy Irving Urea nitrogen [Mass/Vol] 17.0 mg/dL Normal 7.0-18.0 [facility] Comment on above: Performed By: #### L IPID, T4, TSH, FT3, CMP #### [facility] [address] [address] [address] Maggy Irving Urea nitrogen/Creatinine [Mass ratio] 19.1 mg/mg Normal [facility] Comment on above: Performed By: #### L IPID, T4, TSH, FT3, CMP #### [facility] [address] [address] [address] Maggy Irving T4on 04-09-2022 T4 [Mass/Vol] 7.90 ug/dL Normal 4.50-12.10 [facility] Comment on above: Performed By: #### L IPID, T4, TSH, FT3, CMP #### [facility] [address] [address] [address] Maggy Irving TSHon 04-09-2022 TSH 4.949 uIU/mL Critically high 0.358-3.740 [facility] Comment on above: Performed By: #### L IPID, T4, TSH, FT3, CMP #### [facility] [address] [address] [address] Maggy Irving Vital Signs Date Time Vital Sign Value Performing Clinician Zain asif 04-06-2024 09:43-0400 Body height 177.8 cm [facility] 04-06-2024 09:43-0400 Body mass index (BMI) [Ratio] 34.4 kg/m2 [facility] 04-06-2024 09:43-0400 Body temperature 98.3 [degF] [facility] 04-06-2024 09:43-0400 Body weight 109.08 kg [facility] 04-06-2024 09:43-0400 Diastolic blood pressure 78 mm[Hg] [facility] 04-06-2024 09:43-0400 Heart rate 87 /min [facility] 04-06-2024 09:43-0400 Respiratory rate 18 /min [facility] 04-06-2024 09:43-0400 SaO2% (BldA) [Mass fraction] 96 % [facility] 04-06-2024 09:43-0400 Systolic blood pressure 146 mm[Hg] [facility] Encounters Encounter Date Encounter Type Care Provider Facility Start: 06-04-2025 End: 06-04-2025 ambulatory hCirag STINSON [facility] Start: 06-04-2025 End: 06-04-2025 Patient encounter procedure Chirag STINSON [facility] [place] Start: 05-07-2025 ambulatory Chirag STINSON Facility:[facility] [place] Start: 04-27-2024 End: 04-27-2024 ambulatory Marcella Gross [facility] Work Phone: Start: 04-27-2024 End: 04-27-2024 Departed Referred MD Marcella Gross Work Phone: [facility] Start: 04-06-2024 End: 04-06-2024 ambulatory [facility] Work Phone: Start: 04-06-2024 End: 04-06-2024 Patient encounter procedure [facility] Work Phone: Start: 02-10-2023 End: 02-11-2023 ambulatory IVELISSE ORNELAS Facility:[facility] Start: 02-07-2023 End: 02-07-2023 ambulatory IVELISSE ORNELAS Facility:[facility] Start: 02-06-2023 Encounter for preprocedural laboratory examination IVELISSE ORNELAS [facility] Start: 01-31-2023 End: 02-01-[address] [...] L IPID, T4, TSH, FT3, CMP #### [facility] [address] [place] [address] Dr. Maggy Irving Amputation of fifth toe Gianni ael NILL Repair of inguinal hernia Mi chacristino NILL Immunizations Immunization Date Immunization Notes Care Provider Fa cili 09-10-2021 SARS-CoV-2 (COVID-19 ) mRNA-1273 vaccine Chirag STINSON [facility] [place] 12-26-2020 SARS-CoV-2 (COVID-19 ) Ad26 vaccine, recombinant Chirag NILL [facility] Comment on above: Result Comment: 2024: [id number] Payers Date Payer Category Payer Medicare [id number] 2025 Private Health Insurance [id number] 2024 Self-pay 1959 Medicare [id number] 1959 Unknown [id number] 1952 Unknown [id number] 2.16.84 [id number] 1952 Unknown [id number] 2.16.84 [id number] 1952 Unknown [id number] 2.16.84 0.1.645628.3.579.2.593 1952 Unknown [id number] 2.16.84 0.1.076143.3.579.2.593 1952 Unknown [id number] 2.16.84 0.1.298218.3.579.2.593 1952 Unknown [id number] 2.16.84 0.1.286301.3.579.2.593 1952 Unknown [id number] 2.16.84 0.1.143024.3.579.2.593 1952 Unknown [id number] 2.16.84 0.1.033292.3.579.2.593 1952 Unknown [id number] 2.16.84 0.1.471195.3.579.2.593 1952 Unknown [id number] 2.16.84 0.1.716509.3.579.2.593 1952 Unknown [id number] 2.16.84 0.1.781676.3.579.2.593 1952 Unknown [id number] 2.16.8 [id number] Medicare Medicare [id number] Unknown [id number] 2.16.8 [id number] Social History Date Type Detail [facility] Work Phone: Start: 1950 Sex Assigned At Male [facility] Start: 06-04-2025 Tobacco smoking status Never s moked tobacco (finding) [facility] [place] Tobacco smoking status Never Aishwarya [facility] [place] Sexual Orientation [facility] [place] Sex Assigned At Male [facility] Sex Male (finding) [facility] Clinical Note 06-04-2025 Note Date & Type [...] male with h/o htn, hyperlipidemia, neuropathy, hypothyroidism, Eltvqzn-Mxwfy-Ubgvs disease, referred for positive fecal occult blood [...] Problem List/Past Medical History Ongoing BMI 35.0-35.9,adult Vfdxvwx-Zkqmc-Ljflr disease Chronic ulcer of left heel Class [...] (COVID-19) Ad26 vaccine 12/26/2020 Recorded 2025-05-15: [id number] [facility] Comment on above: Result Comment: [...] by: OLVIN KHANNA Date: 2023-02-07 09:41 [facility] Evaluation + Plan note Note Date & Type Note Facility Evaluation + Plan note No data available for this section [facility] [place] Evaluation note Note Date & Type Note Facility Evaluation note Diagnosis Onset Date Bacterial conjunctivitis of right eye [facility] Work Phone: Hospital Discharge instructions Note Date & Type Note Facility Hospital Discharge instructions No data available for this section [facility] [place] Progress note Note Date & Type Note Facility Progress note No data available for this section [facility] [place] Summary Purpose Family [...] and content) DATE CREATED AUTHOR 02/25/2023 [facility] [place] [facility] DATE CREATED AUTHOR AUTHOR'S ORGANIZ ATION 05/02/2024 [facility] DATE CREATED AUTHOR AUTHOR'S ORGANIZ ATION 06/05/2025 [facility] Care Teams (unrecognized sec tion and [...] BE BASED ON THE PRIMARY CLINICAL RECORDS. [facility] provides no warranty or guarantee of the accuracy or completeness of information in this document.
== END 2025-07-02 13:38 | disposition home or self-care (01) ==
LOC: WC 13:37
PROVIDERS: PCP Family Medicine; Visit Provider Physician Assistant
DX: L97.412 Non-pressure chronic ulcer of right heel and midfoot with fat layer exposed (principal); L89.890 Pressure ulcer of other site, unstageable
CPT/HCPCS: 11043; 29445

== ENCOUNTER 2025-07-09 10:11 | Outpatient (OUT) | payer MEDICARE, OTHER, SELFPAY ==
--- OUTSIDE RECORDS SUMMARY | 2025-07-09 10:15 | XMS_ITS | Clinical Summary ---
Author Organization [facility] Healthcare Address [address] [place] [address] Care Team Providers Care Information Lead Name Role Phone Unavailable Primary Care Provider Unavailabl e Social History Tobacco UseTypesPacks/DayYears UsedDateSmoking Tobacco: Never AssessedSex and Gender InformationValueDate RecordedSex Assigned at BirthNot on fileLegal Sex Male12/01/2022 6:47 PM EDTGender IdentityNot on fileSexual OrientationNot on file Last Filed Vital Signs Vital SignReadingTime TakenCommentsBlood Pressure--Pulse--Temperature-- Respiratory Rate--Oxygen Saturation--Inhaled Oxygen Concentration--Xesonp599 kg (229 lb)09/29/2022 12:00 PM VYMFrripx613.8 cm (5' 10 )09/29/2022 12:00 PM EST Body Mass Index32.8609/29/2022 12:00 PM EST Plan of Treatment Not on file Insurance
--- OUTSIDE RECORDS SUMMARY | 2025-07-09 10:21 | XMS_ITS | CCD ---
Author Organization [facility] Care Team Providers Care Psychiatric Technician Assistant Name Role Phone CHEIKH ., DR [...] Unavailable Marcella Gross Referring Unavailable Allergies Allergy ClassificationReported Allergen(s)Allergy TypeDate of OnsetReaction(s) Facility (1 source)No Known Medication Allergies; Translations: [No Known Medication Allergies]Propensity to adverse reactions (disorder)[facility] Repository Medications Current Medications MedicationDrug Class(es)DatesSig (Normalized)Sig (Original)aspirin 325 mg delayed release oral tablet (1 source)Platelet Aggregation Inhibitor, Nonsteroidal Anti-inflammatory Drug Start: 11-92-4110lxvn 2 tablets by mouth once dailyaspirin 325 mg Oral EC Tab 650 mg = 2 tab(s), Oral, Daily, Refills(s) 0 Start Date: 05/15/25 Status:Ordered Repeat number: 1doxazosin 4 mg oral tablet (3 sources)alpha-Adrenergic BlockerStart: 54-37-9310xigg 1 tablet by mouth once dailydoxazosin 4 mg Tab 4 mg = 1 tab(s), Oral, Daily, Refills(s) 0 Start Date: 05/15/25 Status: Ordered Repeat number: 1Start: 07-52-2527Kerewanzk Active MG PO April 06, 2024 12:00amferrous sulfate 325 mg oral tablet (1 source)Start: 17-31-6156kdwj 1 tablet by mouth twice dailyferrous sulfate 325 mg Tab 325 mg = 1 tab(s), Oral, BID, Refills(s) 0 Start Date: 06/04/25 Status: Or dered Repeat number: 1levothyroxine sodium 0.075 mg oral tablet (3 sources)l-ThyroxineStart: 27-27-4990ksvc 1 tablet by mouth once daily levothyroxine 75 mcg (0.075 mg) Tab 75 mcg = 1 tab(s), Oral, Daily, Refills(s) 0 Start Date: 05/15/25 Status: Ordered Repeat number: 1Start: 04-06-2024 Levothyroxine Active MCG PO April 06, 2024 12:00ammagnesium oxide 500 mg oral tablet (3 sources)Start: 76-20-7099kdfl 1 tablet by mouth once dailymagnesium oxide 500 mg oral tablet 500 mg = 1 tab(s), Oral, Daily, Refills(s) 0 Start Date: 06/04/25 Status: Ordered Repeat number: 1Start: 78-55-3144uvwo 500 mg by mouth once daily Magnesium Oxide Active 500 MG PO Daily April 06, 2024 12:00amofloxacin 3 mg/ml ophthalmic solution (2 sources)Quinolone AntimicrobialStart: 69-82-7559axas 1 drop(s) into the eye(s) four times dailyOfloxacin Active 2 DROPS OPHTHALMIC Four times daily 10 April 06, 2024 12:00am right eyeoxybutynin chloride 5 mg oral tablet (2 sources)Cholinergic Muscarinic AntagonistStart: 07-45-3672Vuiowzvkxr Chloride Active MG PO April 06, 2024 12:00am Problems Active Problems Problem ClassificationProblemDateDocumented DateEpisodic/ChronicAcquired foot deformities (1 source)Other acquired deformities of right foot; Translations: [OTHER ACQUIRED DEFORMITIES RT FOOT]Onset: 03-78-4321XpesuysxMxhicoh ulcer of skin (5 sources)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 breakdown of skin; Translations: [Non-pressure chronic ulcer of right heel and midfoot with fat layer exposed]Onset: 19-42-8213XyjomivFoeforqnvasuc of surgical procedures or medical care (4 sources)Other complications of amputation stump; Translations: [OTH COMPLICATIONS AMPUTATION STUMP]Onset: 07-11-1529AgdqnvjfAusjicgdod heart failure; nonhypertensive (1 source)Unspecified diastolic (congestive) heart failure; Translations: [UNSPECIFIED DIASTOLIC HEART FAILURE]Onset: 41-52-0210SqoqlieYotxwpgdft and other anemia (1 source)Anemia, unspecified; Translations: [ANEMIA UNSPECIFIED]Onset: 64-27-7715EmypzxvjVwvjdxac mellitus with complications (1 source)Type 2 diabetes mellitus with foot ulcer; Translations: [TYPE 2 DM W/FOOT ULCER]Onset: 71-39-9934BvkqzlcEsmrnjhxe of lipid metabolism (2 sources)Hyperlipidemia, unspecified; Translations: [Hyperlipidemia]Onset: 13-37-370108194571-05-3245RxpnmpvVcpbshsby hypertension (2 sources)Essential (primary) hypertension; Translations: [Hypertensive disorder]Onset: 157572-19-7909GnkjsakQpsvhzjgbngy with complications and secondary hypertension (1 source)Hypertensive heart disease with heart failure; Translations: [HTN HEART DISEASE W/HEART FAIL]Onset: 29-75-9296IdhbwifEezfjswxrzju; infection of eye (except that caused by tuberculosis or sexually transmitteddisease) (4 sources)Bacterial conjunctivitis; Translations: [Unspecified conjunctivitis] 20-58-2191ZzehieoiBkypq aftercare (1 source)Other bed bug exterminator (current) drug therapy; Translations: [OTH SENIOR LIVING CURRENT DRUG THERAPY]Onset: 60-51-3615FvockmezFxcfn endocrine disorders (1 source)Testicular eyhrmulzjsrw20-34-1870VcueubePvyet gastrointestinal disorders (1 source)Abnormal feces; Translations: [Other fecal abnormalities]Onset: 22-77-0938BwynbgtlDemgr gastrointestinal disorders (2 sources)Occult blood in dtlulu69-36-6049AszlboxrCiwnb lower respiratory disease (4 sources)Dyspnea, unspecified; Translations: [DYSPNEA UNSPECIFIED]Onset: 69-91-8801GzclwgaiJjacp lower respiratory disease (4 sources)Other forms of dyspnea; Translations: [OTHER FORMS OF DYSPNEA]Onset: 25-12-5638MwepjgknQvlqb nervous system disorders (1 source)Polyneuropathy, unspecified; Translations: [POLYNEUROPATHY UNSPECIFIED]Onset: 69-53-5758HvlsrarCozcd nervous system disorders (1 source)Hereditary motor and sensory xhtvaatwcx35-39-5586IwvetgjGtncj nervous system disorders (1 source)Rkqcsqhzgm15-48-8719LggvofmUbhsu nutritional; endocrine; and metabolic disorders (1 source)Body mass index 30+ - hdxgumq42-07-0430OklukdsEaioy nutritional; endocrine; and metabolic disorders (1 source)Obese class MDU09-38-0925PvalpdjFjxav skin disorders (1 source)Epidermal thickening, unspecified; Translations: [EPIDERMAL THICKENING UNSPECIFIED]Onset: 21-34-7833NqxvlkgqSoofwxmk codes; unclassified (1 source)Localized edema; Translations: [LOCALIZED EDEMA]Onset: 01-06-2023 EpisodicThyroid disorders (5 sources)Hypothyroidism, unspecified; Translations: [Hypothyroidism]Onset: 75-54-2851SzrkhrmZvjjipzwhrxk (1 source)Chronic ulcer of left nyvm77-11-8518 Past or Other Problems Problem ClassificationProblemDateDocumented DateEpisodic/ChronicMalaise and fatigue (1 source)Other fatigue; Translations: [OTHER FATIGUE]Onset: 39-01-5345Wwmbajjz Other screening for suspected conditions (not mental disorders or infectious disease) (6 sources)Other specified abnormal findings of blood chemistry; Translations: [Encounter for screening for malignant neoplasm of prostate]Onset: 04-09-2022 Episodic Results Test NameValueInterpretationReference RangeFacilityAmbulatory Visit Summaryon 35-18-5696Edabuxyxjj Visit SummaryAmbulatory Visit Summary SILVINO OJEDA :1950 Visit Date:06/04/2025 [...] Tablets By Mouth Every day Contact prescribing physicianif questions or concerns Unchanged ferrous sulfate (ferrous sulfate 325 mg Tab) 1 Tablets By Mouth 2 times a day Contact prescribing physician if questions or concerns Unchanged levothyroxine (levothyroxine 75 mcg (0.075 mg) Tab) 1 Tablets By Mouth Every day Contact prescribing physician if questions or concerns Unchanged magnesium oxide (magnesium oxide 500 mg oral tablet) 1 Tablets By Mouth Every day Contactprescribing physician if questions or concerns Allergies No Known Allergies No Known Medication Allergies Problems Ongoing - Any problem that you are currently receiving treatment for. BMI 35.0-35.9,adult Ppittnl-Vdtyh-Habrh disease Chronic ulcer of left heel Class [...] signed up for this yet, please contact [employer] at [phone] to get signed up today. Language Information Language assistance services are available as needed. [facility] 06-26-0437GBdhsclvu: [id number] Received: 04/30/24 Status: CASS Moore Num: [id number] Spec Type: Impression Subm Dr: Marcella Gross MD Tissues: PATHPER Procedures: PATHREVIEW Age/ Patient Sex Location Account Attending Physician Silivno Ojeda 74/M [facility] [id number] Marcella Gross MD SPEC NUM: [id number] RECD: 04/30/24 STATUS: CASS MOORE NUM: [id number] KAREN: 04/27/[address]: Marcella Gross MD ENTERED: 04/30/24 [facility] DR: SPEC TYPE: Impression DEPT: ALEXSANDRA Cervantes ENTERED BY: [id number] RECV BY: [id number] ORDERED: PATHREVIEW ORDERED: PATHREVIEW Pathologist Review Abnormal [...] shifted granulocytes, or granulocytic dysplasia observed CPT: 24798 Specimen: [id number] Received: 04/30/24 Status: CASS Moore Num: [id number] Spec Type: Impression Subm Dr: Marcella Gross MD Tissues: PATHPER Procedures: PATHREVIEW Patient: Silvino Ojeda [id number] (Continued) Signed (signature on file) Celia Irving MD 04/30/[address] [place] [address] Physician GroupCULTURE OTHERon 58-13-7702NMHKYEM OTHER Isolate 1 Staphylococcus aureus Light growth of ORGANISM 1 Staphylococcus aureus ANTIBIOTIC M.I.C RX STATUS Beta-Lactamase Pos POS F Cefoxitin Screen Neg NEG F Benzylpenicillin >=0.5 R F Oxacillin <=0.25 S F Gentamicin <=0.5 S F Ciprofloxacin <=0.5 S F Levofloxacin <=0.12 S F Moxifloxacin <=0.25 S F Inducible Clindamycin Resistance Neg NEG F Erythromycin <=0.25 S F Clindamycin <=0.25 S F Quinupristin/Dalfopristin <=0.25 S F Linezolid 2 S F Vancomycin <=0.5 S F Tetracycline <=1 S F Rifampicin <=0.5 S F Trimethoprim/Sulfamethoxazole <=10 S FNormalThe [facility] - AndersonComment on above:Performed By: #### LIPID, T4, TSH, FT3, CMP #### [facility] [address] [place] [address] Dr. Maggy MatosNGAL CULTUREon 00-52-5217Izhanv StainFinal [facility]erm[facility] HospitalComment on above:Performed By: #### LIPID, T4, TSH, FT3, CMP #### [facility] [address] [place] [address] Dr. Maggy Hamilton 1CThe Christ HospitalComment on above:Result Comment: SUDHIR/Calcofluor preparation: no fungus observed.Performed By: #### LIPID, T4, TSH, FT3, CMP #### [facility] [address] [place] [address] Dr. Maggy IrvingACID FAST SMEAR AND CXon 04-22-0313Dmvu Fast SmearNegativeNoRegency Hospital Cleveland EastComment on above:Performed By: #### AFB #### [facility] [address] [place] [address] Dr. Maggy Alberts Specimen ProcessingTissuMarymount Hospital Comment on above:Performed By: #### AFB #### [facility] [address] [place] [address] Dr. Maggy Greenberg ANAEROBICon 26-84-9478JTABBPH ANAEROBICIsolate 1 Alyceia magna Light growth [facility] HospitalComcorewell health bl[facility] hospital on above:Result Comment: EVIDENCE BASED PRACTICE BY [facility] HAS DEMONSTRATED THAT FINEGREGORIOIA SPECIES ARE ROUTINELY SUSCEPTIBLE TO PIPERACILLIN-TAZOBACTAM, CEFOXITIN, ERTAPENEM, IMIPENEM METRONIDAZOLE AND VARIABLY RESISTANT TO CLINDAMYCIN.Performed By: #### LIPID, T4, TSH, FT3, CMP #### [facility] [address] [address] [address] Maggy Potts STAINon 44-40-4315WQPTFIIFZN ORGANISMS [facility] ColumbusComcorewell [facility] on above:Performed By: #### GSTAIN #### [facility] [address] [place] [address] Dr. Maggy SolisPHTHEROIDSKettering Health TroyComcorewell health blodgett hospital on above:Performed By: #### GSTAIN #### [facility] [address] [address] [address] Maggy SpencerLIALSKettering Health TroyComcorewell health blodgett hospital on above:Performed By: #### GSTAIN #### [facility] [address] [address] [address] Maggy MatosNGAL ELEMENTSKettering Health TroyComcorewell health blodgett hospital on above: Performed By: #### GSTAIN #### [facility] [address] [address] [address] Maggy Potts NEG [facility] HospitalComcorewell [facility] on above: Performed By: #### GSTAIN #### [facility] [address] [place] [address] Dr. Maggy Potts NEG DIPPLOCOCCIKettering Health TroyComcorewell health blodgett hospital on above: Performed By: #### GSTAIN #### [facility] [address] [place] [address] Dr. Maggy Potts POS BACILLIKettering Health TroyComcorewell health blodgett hospital on above: Performed By: #### GSTAIN #### [facility] [address] [place] [address] Dr. Maggy Potts POSITIVE COCCINoSelect Medical Specialty Hospital - Cleveland-FairhillComment on above: Performed By: #### GSTAIN #### [facility] [address] [address] [address] Maggy Potts STAIN BCAPVY2yj Metatarsal BoneKettering Health Troy Comment on above:Performed By: #### GSTAIN #### [facility] [address] [address] [address] Maggy Wagner_DIPTHKettering Health TroyComment on above:Performed By: #### GSTAIN #### [facility] [address] [address] [address] Maggy IrvingWBCRARENormalOhiohealth Pickerington Methodist HospitalComment on above:Performed By: #### GSTAIN #### [facility] [address] [address] [address] Maggy IrvingPOINT OF CARE GLUCOSEon 43-54-7489Viljxtr [Mass/Vol]114 mg/dL Critically fmkt49-521QfkOhiohealth Pickerington Methodist HospitalComment on above:Performed By: #### POCGLUC #### [facility] [address] [address] [address] Maggy IrvingGlucose [Mass/Vol]122 mg/dLCritically sngq54-605OfpOhiohealth Pickerington Methodist HospitalComment on above:Performed By: #### POCGLUC #### [facility] [address] [address] [address] Maggy IrvingPROF CHEM 8 (BAS METB)on 61-44-1197Abiir gap [Moles/Vol]12.0 mmol/LNormalOhiohealth Pickerington Methodist HospitalComment on above:Performed By: #### LIPID, T4, TSH, FT3, CMP #### [facility] [address] [address] [address] Maggy IrvingCalcium [Mass/Vol]8.7 mg/dLNormal8.5-10.1[facility] Comment on above:Performed By: #### LIPID, T4, TSH, FT3, CMP #### [facility] [address] [address] [address] Maggy IrvingChloride [Moles/Vol]104 mmol/ETlhpgd04-093SdnOhiohealth Pickerington Methodist Hospital Comment on above:Performed By: #### LIPID, T4, TSH, FT3, CMP #### [facility] [address] [address] [address] Maggy IrvingCO2 [Moles/Vol]28.1 mmol/RSeywrj34.0-32.0The [facility] Comment on above:Performed By: #### LIPID, T4, TSH, FT3, CMP #### [facility] [address] [address] [address] Maggy IrvingCreatinine [Mass/Vol]0.80 mg/dLNormal0.70-1.30The [facility] - AndersonComment on above:Performed By: #### LIPID, T4, TSH, FT3, CMP #### [facility] [address] [place] [address] Dr. Maggy AndradeGFR-AF NAURUAN>60Normal>=60The [facility] - AndersonComment on above:Performed By: #### LIPID, T4, TSH, FT3, CMP #### [facility] [address] [place] [address] Dr. Maggy AndradeGFR-NON AF NAURUAN>60Normal>=60The [facility] AndersonComment on above:Performed By: #### LIPID, T4, TSH, FT3, CMP #### [facility] [address] [place] [address] Dr. Maggy IrvingGlucose [Mass/Vol]129 mg/dLCritically qqsl16-795Ukm [facility] AndersonComment on above:Performed By: #### LIPID, T4, TSH, FT3, CMP #### [facility] [address] [place] [address] Dr. Maggy IrvingPotassium [Moles/Vol]4.1 mmol/LNormal3.5-5.1[facility] Comment on above:Performed By: #### LIPID, T4, TSH, FT3, CMP #### [facility] [address] [place] [address] Dr. Maggy IrvingSodium [Moles/Vol]140 mmol/AInqhwj979-461OgmOhiohealth Pickerington Methodist Hospital Comment on above:Performed By: #### LIPID, T4, TSH, FT3, CMP #### [facility] [address] [address] [address] Maggy Carlos nitrogen [Mass/Vol]20.0 mg/dLCritically high7.0-18.0The [facility] AndersonComment on above:Performed By: #### LIPID, T4, TSH, FT3, CMP #### [facility] [address] [place] [address] Dr. Maggy Carlos nitrogen/Creatinine [Mass ratio]25.0 mg/mgNormalThe [facility] - AndersonComment on above:Performed By: #### LIPID, T4, TSH, FT3, CMP #### [facility] [address] [place] [address] Dr. Maggy ReyesEE T3on 27-93-8597UFKV T33.24 pg/mlLNormal2.18-3.98The [facility] - AndersonComment on above:Performed By: #### LIPID, T4, TSH, FT3, CMP #### [facility] [address] [place] [address] Dr. Maggy IrvingT4on 99-44-4900C9 [Mass/Vol]9.10 ug/dLNormal4.50-12.10The [facility] AndersonComment on above:Performed By: #### LIPID, T4, TSH, FT3, CMP #### [facility] [address] [place] [address] Dr. Maggy IrvingTSHoroxy 60-93-4547UVD4.957 uIU/mLCritically high0.358-3.740The [facility] AndersonComment on above:Performed By: #### LIPID, T4, TSH, FT3, CMP #### [facility] [address] [place] [address] Dr. Maggy IrvingNM STRESS/REST MULTIon 51-72-9967FT STRESS/REST MULTIPatient: SILVINO OJEDA Exam Date: 01/03/2023 : 1950 Gender:M Ordering : DR MARCELLA GROSS . Admission #: [id number] Family : Order #: [id number] CLICK HERE TO VIEW EXAM RADIOLOGY REPORT [...] Fixed ischemia versus diaphragm attenuation artifact involving inferior/inferior-lateral wall. 3. Normal ventricle size, wall motion, and ejection fraction. Dictated by: Olvin Khanna M.D. on 01/04/2023 at 07:41 Approved by: Olvin Khanna M.D. on 01/04/2023 at 07:45K[facility]tering Health TroyECHOCARDIO M/2D COMPLETEon 85-04-5257NZSLNIAMET M/2D COMPLETEPatient: SILVINO OJEDA Exam Date: 12/21/2022 : 1950 Gender:M Ordering : DR MARCELLA GROSS . Admission #: [id number] Family : Order #: [id number] CLICK HERE TO VIEW EXAM ECHOCARDIOGRAM REPORT [...] by: Dez Ling M.D. on 12/23/2022 at 18:05[facility]tering Health TroyBNPon 27-08-0173Vmykjnnyqwa peptide B (Bld) [Mass/Vol]37.0 pg/mLNormal <=900.0The [facility] AndersonComment on above:Performed By: #### LIPID, T4, TSH, FT3, CMP #### [facility] [address] [place] [address] Dr. Maggy Crocker AUTO DIFFon 89-71-1929HSIX #0.0 103/ulNormal0.0-0.1The [facility] - AndersonComment on above:Performed By: #### LIPID, T4, TSH, FT3, CMP #### [facility] [address] [place] [address] Dr. Maggy IrvingBasophils/100 WBC (Bld)0.2 %Normal0.2-2.0The [facility] Comment on above:Performed By: #### LIPID, T4, TSH, FT3, CMP #### [facility] [address] [place] [address] Dr. Maggy Zurita #0.2 103/ulNormal0.0-0.7The [facility] for Rehabilitationment on above: Performed By: #### LIPID, T4, TSH, FT3, CMP #### [facility] [address] [place] [address] Dr. Maggy Andradeosinophils/100 WBC (Bld)3.7 %Normal0.9-7.0The [facility] Comment on above:Performed By: #### LIPID, T4, TSH, FT3, CMP #### [facility] [address] [place] [address] Dr. Maggy Andraderythrocyte distribution width (RBC) [Ratio]11.9 %Phahsl98.0-15.0 The [facility] Rehabilitationment on above:Performed By: #### LIPID, T4, TSH, FT3, CMP #### [facility] [address] [place] [address] Dr. Maggy IrvingHematocrit (Bld) [Volume fraction]39.7 %Critically low42.0-54.0 The [facility] Rehabilitationment on above:Performed By: #### LIPID, T4, TSH, FT3, CMP #### [facility] [address] [place] [address] Dr. Maggy IrvingHemoglobin (Bld) [Mass/Vol]14.0 g/uMUkijiw55.0-18.0The [facility] Rehabilitationment on above:Performed By: #### LIPID, T4, TSH, FT3, CMP #### [facility] [address] [place] [address] Dr. Maggy Cyr #0.02 10e3/ulNormal0.00-0.03The [facility] Rehabilitationment on above:Performed By: #### LIPID, T4, TSH, FT3, CMP #### [facility] [address] [place] [address] Dr. Maggy Cyr %0.5 %Normal0.0-0.5The [facility]a HospitalComment on above: Performed By: #### LIPID, T4, TSH, FT3, CMP #### [facility] [address] [place] [address] Dr. Maggy Ordaz #0.9 103/ulCritically low1.2-3.8The [facility] Comment on above:Performed By: #### LIPID, T4, TSH, FT3, CMP #### [facility] [address] [place] [address] Dr. Maggy Heltonhocytes/100 WBC (Bld)21.1 %Ofcexy01.5-60.0The [facility] AndersonComment on above:Performed By: #### LIPID, T4, TSH, FT3, CMP #### [facility] [address] [place] [address] Dr. Maggy Prajapati DIFF REQNONormalThe [facility] - AndersonComment on above: Performed By: #### LIPID, T4, TSH, FT3, CMP #### [facility] [address] [place] [address] Dr. Maggy Cunningham (RBC) [Entitic mass]30.5 aaXdjsqe73.9-34.0The [facility] AndersonComment on above:Performed By: #### LIPID, T4, TSH, FT3, CMP #### [facility] [address] [place] [address] Dr. Maggy Cunningham (RBC) [Mass/Vol]35.3 g/dLCritically high29.9-35.2The [facility] Rehabilitationment on above:Performed By: #### LIPID, T4, TSH, FT3, CMP #### [facility] [address] [place] [address] Dr. Maggy Cunningham (RBC) [Entitic vol]86.5 wNGgpocv25.0-94.0The [facility] on above:Performed By: #### LIPID, T4, TSH, FT3, CMP #### [facility] [address] [place] [address] Dr. Maggy Pablo #0.4 103/ulNormal0.3-0.8The [facility] Rehabilitationment on above:Performed By: #### LIPID, T4, TSH, FT3, CMP #### [facility] [address] [place] [address] Dr. Maggy Batesocytes/100 WBC (Bld)8.7 %Normal1.7-12.0The [facility] Comment on above:Performed By: #### LIPID, T4, TSH, FT3, CMP #### [facility] [address] [place] [address] Dr. Maggy Huffman #2.9 103/ulNormal1.4-6.5The [facility] AndersonComment on above:Performed By: #### LIPID, T4, TSH, FT3, CMP #### [facility] [address] [place] [address] Dr. Maggy Barbourutrophils/100 WBC (Bld)65.8 %Eywbfh44.0-75.0The [facility] Rehabilitationment on above:Performed By: #### LIPID, T4, TSH, FT3, CMP #### [facility] [address] [place] [address] Dr. Maggy IrvingPlatelet mean volume (Bld) [Entitic vol]9.9 fLNormal9.5-13.5The [facility] on above:Performed By: #### LIPID, T4, TSH, FT3, CMP #### [facility] [address] [place] [address] Dr. Maggy IrvingPLT128 103/ulCritically ofw312-541Aye [facility] Rehabilitationment on above:Performed By: #### LIPID, T4, TSH, FT3, CMP #### [facility] [address] [place] [address] Dr. Maggy IrvingRBC4.59 106/ulCritically low4.70-6.10The [facility] on above:Performed By: #### LIPID, T4, TSH, FT3, CMP #### [facility] [address] [place] [address] Dr. Maggy IrvingWBC4.4 103/ulNormal4.0-11.0[facility] on above: Performed By: #### LIPID, T4, TSH, FT3, CMP #### [facility] [address] [place] [address] Dr. Maggy Gresham THYROXINE INDEX T7on [id number] on above:Performed By: #### LIPID, T4, TSH, FT3, CMP #### [facility] [address] [place] [address] Dr. Maggy IrvingT3U34.0 %Oeozda07.0-40.0The [facility]Com[facility] on above: Performed By: #### LIPID, T4, TSH, FT3, CMP #### [facility] [address] [place] [address] Dr. Maggy IrvingT4 [Mass/Vol]8.00 ug/dLNormal4.50-12.10ThGal[facility] Comment on above:Performed By: #### LIPID, T4, TSH, FT3, CMP #### [facility] [address] [place] [address] Dr. Maggy Cervantes 20-26-1431Kxmv [Mass/Vol]134.0 ug/zCPwothu56.0-175.0[facility] HospitalComment on above:Performed By: #### LIPID, T4, TSH, FT3, CMP #### [facility] [address] [place] [address] Dr. Maggy IrvingLIPID PROFILEon [id number] RATIO NORMSEE BELOWNoSelect Medical Specialty Hospital - Cleveland-FairhillComment on above:Result Comment: 3.3 - 4.4 LOW RISK 4.4 - 7.1 AVERAGE RISK 7.1 - 11.0 MODERATE RISK >11.0 HIGH RISKPerformed By: #### LIPID, T4, TSH, FT3, CMP #### [facility] [address] [place] [address] Dr. Maggy IrvingCholesterol [Mass/Vol]180 mg/dLNormal<=200The [facility] Comment on above:Performed By: #### LIPID, T4, TSH, FT3, CMP #### [facility] [address] [address] [address] Maggy Bangesterjun in HDL [Mass/Vol]37 mg/dLCritically wkp95-56Rnj [facility] on above:Performed By: #### LIPID, T4, TSH, FT3, CMP #### [facility] [address] [place] [address] Dr. Maggy Bangesterol in LDL [Mass/Vol]95.2 mg/dLNoHocking Valley Community Hospital on above:Performed By: #### LIPID, T4, TSH, FT3, CMP #### [facility] [address] [place] [address] Dr. Maggy Bellamy.total/Cholesterol in HDL [Mass ratio]4.9 {ratio} NormalAs[facility]abula [facility] on above:Performed By: #### LIPID, T4, TSH, FT3, CMP #### [facility] [address] [place] [address] Dr. Maggy Garcia NORMAL> or = 60 mg/dl - LOW CARDIOVASCULAR RISK <40 mg/dl - HIGH CARDIOVASCULAR RISKACMC Healthcare System on above:Performed By: #### LIPID, T4, TSH, FT3, CMP #### [facility] [address] [place] [address] Dr. Maggy Mullen CALC NORMALSEE BELOWACMC Healthcare System on above:Result Comment: <100 mg/dl OPTIMAL 100 - 129 mg/dl NEAR OR ABOVE OPTIMAL 130 - 159 mg/dl BORDERLINE HIGH 160 - 189 mg/dl HIGH >190 mg/dl VERY HIGH Performed By: #### LIPID, T4, TSH, FT3, CMP #### [facility] [address] [place] [address] Dr. Maggy IrvingTriglyceride [Mass/Vol]239 mg/dLCritically high<=150[facility] on above:Performed By: #### LIPID, T4, TSH, FT3, CMP #### [facility] [address] [place] [address] Dr. Maggy StarkLDL CALC47.8 mg/dLNormalThe [facility] AndersonComment on above: Performed By: #### LIPID, T4, TSH, FT3, CMP #### [facility] [address] [address] [address] Maggy Carrasco 14(COMP METB)on [id number] [Mass/Vol]3.8 g/dLNormal 3.4-5.0The [facility] AndersonComment on above:Performed By: #### LIPID, T4, TSH, FT3, CMP #### [facility] [address] [address] [address] Maggy IrvingAlbumin/Globulin [Mass ratio]1.1 {ratio}NormalThe [facility] Rehabilitationment on above:Performed By: #### LIPID, T4, TSH, FT3, CMP #### [facility] [address] [place] [address] Dr. Maggy Cutler [Catalytic activity/Vol]53 U/KDvbnqa85-817Cam [facility] Rehabilitationment on above:Performed By: #### LIPID, T4, TSH, FT3, CMP #### [facility] [address] [address] [address] Maggy Cloud [Catalytic activity/Vol]43 U/HRiakmg99-84Qqi [facility]ment on above:Performed By: #### LIPID, T4, TSH, FT3, CMP #### [facility] [address] [address] [address] Maggy Alarcon gap [Moles/Vol]12.2 mmol/LNormalThe [facility] Comment on above:Performed By: #### LIPID, T4, TSH, FT3, CMP #### [facility] [address] [place] [address] Dr. Maggy Martinez [Catalytic activity/Vol]22 U/FLybrrv02-60Pyv [facility]ment on above:Performed By: #### LIPID, T4, TSH, FT3, CMP #### [facility] [address] [address] [address] Maggy Fallonirubin [Mass/Vol]0.6 mg/dLNormal0.2-1.0The [facility] Comment on above:Performed By: #### LIPID, T4, TSH, FT3, CMP #### [facility] [address] [place] [address] Dr. Maggy IrvingCalcium [Mass/Vol]8.9 mg/dLNormal8.5-10.1The [facility] Comment on above:Performed By: #### LIPID, T4, TSH, FT3, CMP #### [facility] [address] [place] [address] Dr. Maggy IrvingChloride [Moles/Vol]104 mmol/BEeotyt76-839Bql [facility] Comment on above:Performed By: #### LIPID, T4, TSH, FT3, CMP #### [facility] [address] [place] [address] Dr. Maggy IrvingCO2 [Moles/Vol]28.8 mmol/IFuamru88.0-32.0The [facility] Comment on above:Performed By: #### LIPID, T4, TSH, FT3, CMP #### [facility] [address] [place] [address] Dr. Maggy IrvingCreatinine [Mass/Vol]0.83 mg/dLNormal0.70-1.30The [facility] AndersonComment on above:Performed By: #### LIPID, T4, TSH, FT3, CMP #### [facility] [address] [place] [address] Dr. Maggy AndradeGFR-AF NAURUAN>60Normal>=60The [facility] AndersonComment on above:Performed By: #### LIPID, T4, TSH, FT3, CMP #### [facility] [address] [place] [address] Dr. Maggy AndradeGFR-NON AF NAURUAN>60Normal>=60[facility] on above:Performed By: #### LIPID, T4, TSH, FT3, CMP #### [facility] [address] [place] [address] Dr. Maggy IrvingGlobulin (S) [Mass/Vol]3.4 g/dLNormalThe [facility] AndersonComment on above:Performed By: #### LIPID, T4, TSH, FT3, CMP #### [facility] [address] [address] [address] Maggy IrvingGlucose [Mass/Vol]116 mg/dLCritically hvya70-216Ivd [facility]ment on above:Performed By: #### LIPID, T4, TSH, FT3, CMP #### [facility] [address] [place] [address] Dr. Maggy IrvingPotassium [Moles/Vol]4.0 mmol/LNormal3.5-5.1The [facility] Comment on above:Performed By: #### LIPID, T4, TSH, FT3, CMP #### [facility] [address] [place] [address] Dr. Maggy IrvingProtein [Mass/Vol]7.2 g/dLNormal6.4-8.2The [facility] Comment on above:Performed By: #### LIPID, T4, TSH, FT3, CMP #### [facility] [address] [place] [address] Dr. Maggy IrvingSodium [Moles/Vol]141 mmol/XRgrlom233-224Lui [facility] Comment on above:Performed By: #### LIPID, T4, TSH, FT3, CMP #### [facility] [address] [place] [address] Dr. Maggy IrvingUrea nitrogen [Mass/Vol]17.0 mg/dLNormal7.0-18.0The [facility] AndersonComment on above:Performed By: #### LIPID, T4, TSH, FT3, CMP #### [facility] [address] [place] [address] Dr. Maggy Carlos nitrogen/Creatinine [Mass ratio]20.5 mg/mgNoSelect Medical Specialty [facility]FairhillComcorewell [facility] on above:Performed By: #### LIPID, T4, TSH, FT3, CMP #### [facility] [address] [place] [address] Dr. Maggy Pope 24-73-9232SXT6.531 uIU/mLCritically high0.358-3.740[facility] HospitalComment on above:Performed By: #### LIPID, T4, TSH, FT3, CMP #### [facility] [address] [place] [address] Dr. Maggy IrvingTESTOSTERONE, TOTALon 34-88-1132Yxjkohkiryrv [Mass/Vol]390 ng/dL Gbjdxy330-419Dde [facility] AndersonComment on above:Result Comment: Adult male reference interval is based on a population of healthy nonobese males (BMI <30) between 19 and 39 years old. dave Jacobs.al. JCEM 2017,102;0219-2091. PMID: [id number].Performed By: #### LIPID, T4, TSH, FT3, CMP #### [facility] [address] [place] [address] Dr. Maggy IrvingCBC AUTO DIFFon [id number] #0.0 103/ulNormal0.0-0.1[facility] HospitalComment on above:Performed By: #### LIPID, T4, TSH, FT3, CMP #### [facility] [address] [place] [address] Dr. Maggy IrvingBasophils/100 WBC (Bld)0.2 %Normal0.2-2.0[facility] Comment on above:Performed By: #### LIPID, T4, TSH, FT3, CMP #### [facility] [address] [place] [address] Dr. Maggy Zurita #0.2 103/ulNormal0.0-0.7The [facility] AndersonComment on above: Performed By: #### LIPID, T4, TSH, FT3, CMP #### [facility] [address] [place] [address] Dr. Maggy Andradeosinophils/100 WBC (Bld)3.1 %Normal0.9-7.0The [facility] Comment on above:Performed By: #### LIPID, T4, TSH, FT3, CMP #### [facility] [address] [place] [address] Dr. Maggy Andraderythrocyte distribution width (RBC) [Ratio]12.3 %Dlomlc18.0-15.0 The [facility] AndersonComment on above:Performed By: #### LIPID, T4, TSH, FT3, CMP #### [facility] [address] [place] [address] Dr. Maggy IrvingHematocrit (Bld) [Volume fraction]41.6 %Critically low42.0-54.0 The [facility] AndersonComment on above:Performed By: #### LIPID, T4, TSH, FT3, CMP #### [facility] [address] [place] [address] Dr. Maggy IrvingHemoglobin (Bld) [Mass/Vol]14.6 g/qMCrnuvp27.0-18.0The [facility] AndersonComment on above:Performed By: #### LIPID, T4, TSH, FT3, CMP #### [facility] [address] [place] [address] Dr. Maggy Cyr #0.02 10e3/ulNormal0.00-0.03The [facility] AndersonComment on above:Performed By: #### LIPID, T4, TSH, FT3, CMP #### [facility] [address] [place] [address] Dr. Maggy Cyr %0.4 %Normal0.0-0.5The [facility] AndersonComment on above: Performed By: #### LIPID, T4, TSH, FT3, CMP #### [facility] [address] [place] [address] Dr. Maggy Ordaz #0.9 103/ulCritically low1.2-3.8The [facility] Comment on above:Performed By: #### LIPID, T4, TSH, FT3, CMP #### [facility] [address] [place] [address] Dr. Maggy Heltonhocytes/100 WBC (Bld)17.9 %Critically low20.5-60.0The [facility] AndersonComment on above:Performed By: #### LIPID, T4, TSH, FT3, CMP #### [facility] [address] [place] [address] Dr. Maggy Prajapati DIFF REQNONormalThe [facility] AndersonComment on above: Performed By: #### LIPID, T4, TSH, FT3, CMP #### [facility] [address] [place] [address] Dr. Maggy [facility]NOR[facility] (RBC) [Entitic mass]31.1 sqBdavyo12.9-34.0The [facility]a HospitalComment on above:Performed By: #### LIPID, T4, TSH, FT3, CMP #### [facility] [address] [place] [address] Dr. Maggy IrvingAL[facility] (RBC) [Mass/Vol]35.1 g/uCBstspc13.9-35.2The [facility] AndersonComment on above:Performed By: #### LIPID, T4, TSH, FT3, CMP #### [facility] [address] [place] [address] Dr. Maggy Cunningham (RBC) [Entitic vol]88.5 eFVopueg76.0-94.0The [facility] AndersonComment on above:Performed By: #### LIPID, T4, TSH, FT3, CMP #### [facility] [address] [place] [address] Dr. Maggy Pablo #0.4 103/ulNormal0.3-0.8The [facility] AndersonComment on above:Performed By: #### LIPID, T4, TSH, FT3, CMP #### [facility] [address] [place] [address] Dr. Maggy Batesocytes/100 WBC (Bld)8.7 %Normal1.7-12.0The [facility] Comment on above:Performed By: #### LIPID, T4, TSH, FT3, CMP #### [facility] [address] [place] [address] Dr. Maggy Huffman #3.4 103/ulNormal1.4-6.5The [facility] AndersonComment on above:Performed By: #### LIPID, T4, TSH, FT3, CMP #### [facility] [address] [place] [address] Dr. Maggy Alejandraophils/100 WBC (Bld)69.7 %Uqtlji66.0-75.0The [facility] on above:Performed By: #### LIPID, T4, TSH, FT3, CMP #### [facility] [address] [address] [address] Maggy IrvingPlatelet mean volume (Bld) [Entitic vol]9.9 fLNormal9.5-13.5The [facility] AndersonComment on above:Performed By: #### LIPID, T4, TSH, FT3, CMP #### [facility] [address] [place] [address] Dr. Maggy IrvingPLT121 103/ulCritically vpq769-323Zsr [facility] AndersonComcorewell [facility] on above:Performed By: #### LIPID, T4, TSH, FT3, CMP #### [facility] [address] [place] [address] Dr. Maggy IrvingRBC4.70 106/ulNormal4.70-6.10The [facility] AndersonComcorewell [facility] on above:Performed By: #### LIPID, T4, TSH, FT3, CMP #### [facility] [address] [place] [address] Dr. Maggy IrvingWBC4.8 103/ulNormal4.0-11.0[facility] on above: Performed By: #### LIPID, T4, TSH, FT3, CMP #### [facility] [address] [place] [address] Dr. Maggy IrvingFRAME T3on [id number] T33.15 pg/mlLNormal2.18-3.98The [facility] on above:Performed By: #### LIPID, T4, TSH, FT3, CMP #### [facility] [address] [place] [address] Dr. Maggy IrvingGLYCOHEMOGLOBIN A1Con [id number] RECOMMENDATIONSEE BELOWNormal The [facility] AndersonComment on above:Result Comment: ADA RECOMMENDED LIMIT 4.0 - 6.0 ADA THERAPEUTIC TARGET < 7.0 ACTION SUGGESTED > 7.0Performed By: #### LIPID, T4, TSH, FT3, CMP #### [facility] [address] [address] [address] Maggy IrvingGlucose [Mass/Vol]123 mg/dLNoSelect Medical Specialty Hospital - Cleveland-FairhillComment on above:Performed By: #### LIPID, T4, TSH, FT3, CMP #### [facility] [address] [place] [address] Dr. Maggy IrvingHbA1c (Bld) [Mass fraction]5.9 %Normal4.5-6.2The [facility] AndersonComment on above:Performed By: #### LIPID, T4, TSH, FT3, CMP #### [facility] [address] [place] [address] Dr. Maggy PittsID PROFILEon [id number]-HDL RATIO NORMSEE [facility] CenterComment on above:Result Comment: 3.3 - 4.4 LOW RISK 4.4 - 7.1 AVERAGE RISK 7.1 - 11.0 MODERATE RISK >11.0 HIGH RISKPerformed By: #### LIPID, T4, TSH, FT3, CMP #### [facility] [address] [place] [address] Dr. Maggy Bangesterol [Mass/Vol]174 mg/dLNormal<=200The [facility] Comment on above:Performed By: #### LIPID, T4, TSH, FT3, CMP #### [facility] [address] [place] [address] Dr. Maggy Bangesterol in HDL [Mass/Vol]36 mg/dLCritically frb04-18Kwg [facility] AndersonComment on above:Performed By: #### LIPID, T4, TSH, FT3, CMP #### [facility] [address] [place] [address] Dr. Maggy Bangesterol in LDL [Mass/Vol]114.4 mg/dLNoSelect Medical Specialty Hospital - [facility]-FairhillComment on above:Performed By: #### LIPID, T4, TSH, FT3, CMP #### [facility] [address] [place] [address] Dr. Maggy IrvingCholesterol.total/Cholesterol in HDL [Mass ratio]4.8 {ratio} NormalThe [facility] AndersonComment on above:Performed By: #### LIPID, T4, TSH, FT3, CMP #### [facility] [address] [address] [address] Maggy Garcia NORMAL> or = 60 mg/dl - LOW CARDIOVASCULAR RISK <40 mg/dl - HIGH CARDIOVASCULAR RISKNoSelect Medical Specialty [facility] - [facility]-FairhillComment on above:Performed By: #### LIPID, T4, TSH, FT3, CMP #### [facility] [address] [address] [address] Maggy IrvingLDL CALC NORMALSEE BELOWNoSelect Medical Specialty [facility] - Cleveland-FairhillComment on above:Result Comment: <100 mg/dl OPTIMAL 100 - 129 mg/dl NEAR OR ABOVE OPTIMAL 130 - 159 mg/dl BORDERLINE HIGH 160 - 189 mg/dl HIGH >190 mg/dl VERY HIGH Performed By: #### LIPID, T4, TSH, FT3, CMP #### [facility] [address] [address] [address] Maggy IrvingTriglyceride [Mass/Vol]118 mg/dLNormal<=150The [facility] Comment on above:Performed By: #### LIPID, T4, TSH, FT3, CMP #### [facility] [address] [place] [address] Dr. Maggy IrvignVLDL CALC23.6 mg/dLNoSelect Medical Specialty Hospital - [facility]-FairhillComment on above: Performed By: #### LIPID, T4, TSH, FT3, CMP #### [facility] [address] [place] [address] Dr. Maggy IrvingOCC BLD IMMUNO SCREENon [id number] BLOODNegativeNormal NEGATIVEThe [facility] AndersonComcorewell [facility] on above:Performed By: #### OBSCRN #### [facility] [address] [place] [address] Dr. Maggy IrvingPROF 14(COMP METB)on [id number] [Mass/Vol]3.6 g/dLNormal 3.4-5.0The [facility] HospitalComment on above:Performed By: #### LIPID, T4, TSH, FT3, CMP #### [facility] [address] [place] [address] Dr. Maggy IrvingAlbumin/Globulin [Mass ratio]1.1 {ratio}NormalThe [facility] Rehabilitationment on above:Performed By: #### LIPID, T4, TSH, FT3, CMP #### [facility] [address] [place] [address] Dr. Maggy Cutler [Catalytic activity/Vol]47 U/MTsifyj13-345Ekw [facility] on above:Performed By: #### LIPID, T4, TSH, FT3, CMP #### [facility] [address] [place] [address] Dr. Maggy Cloud [Catalytic activity/Vol]31 U/UMbyhoc70-86Jjw [facility] AndersonComment on above:Performed By: #### LIPID, T4, TSH, FT3, CMP #### [facility] [address] [place] [address] Dr. Maggy Alarcon gap [Moles/Vol]10.2 mmol/LNormalThe [facility] Comment on above:Performed By: #### LIPID, T4, TSH, FT3, CMP #### [facility] [address] [place] [address] Dr. Maggy Martinez [Catalytic activity/Vol]17 U/LKfclfg20-09Dtj [facility] on above:Performed By: #### LIPID, T4, TSH, FT3, CMP #### [facility] [address] [place] [address] Dr. Maggy IrvingBilirubin [Mass/Vol]0.6 mg/dLNormal0.2-1.0The [facility] Comment on above:Performed By: #### LIPID, T4, TSH, FT3, CMP #### [facility] [address] [place] [address] Dr. Maggy IrvingCalcium [Mass/Vol]8.1 mg/dLCritically low8.5-10.1The [facility] AndersonComment on above:Performed By: #### LIPID, T4, TSH, FT3, CMP #### [facility] [address] [address] [address] Maggy IrvingChloride [Moles/Vol]105 mmol/YFlynbf09-400Qtb [facility] Comment on above:Performed By: #### LIPID, T4, TSH, FT3, CMP #### [facility] [address] [place] [address] Dr. Maggy IrvingCO2 [Moles/Vol]29.6 mmol/SAbclzg66.0-32.0The [facility] Comment on above:Performed By: #### LIPID, T4, TSH, FT3, CMP #### [facility] [address] [place] [address] Dr. Maggy IrvingCreatinine [Mass/Vol]0.89 mg/dLNormal0.70-1.30The [facility] AndersonComment on above:Performed By: #### LIPID, T4, TSH, FT3, CMP #### [facility] [address] [place] [address] Dr. Maggy AndradeGFR-AF NAURUAN>60Normal>=60The [facility] AndersonComment on above:Performed By: #### LIPID, T4, TSH, FT3, CMP #### [facility] [address] [place] [address] Dr. Maggy Carlson-NON AF NAURUAN>60Normal>=60The [facility] AndersonComment on above:Performed By: #### LIPID, T4, TSH, FT3, CMP #### [facility] [address] [place] [address] Dr. Maggy IrvingGlobulin (S) [Mass/Vol]3.2 g/dLNormalThe [facility] AndersonComment on above:Performed By: #### LIPID, T4, TSH, FT3, CMP #### [facility] [address] [place] [address] Dr. Maggy IrvingGlucose [Mass/Vol]110 mg/dLCritically dwmi14-986Pli [facility] AndersonComment on above:Performed By: #### LIPID, T4, TSH, FT3, CMP #### [facility] [address] [address] [address] Maggy IrvingPotassium [Moles/Vol]3.8 mmol/LNormal3.5-5.1The [facility] Comment on above:Performed By: #### LIPID, T4, TSH, FT3, CMP #### [facility] [address] [place] [address] Dr. Maggy IrvingProtein [Mass/Vol]6.8 g/dLNormal6.4-8.2The [facility] Comment on above:Performed By: #### LIPID, T4, TSH, FT3, CMP #### [facility] [address] [place] [address] Dr. Maggy IrvingSodium [Moles/Vol]141 mmol/CBbngxz702-495Amm [facility] Comment on above:Performed By: #### LIPID, T4, TSH, FT3, CMP #### [facility] [address] [place] [address] Dr. Maggy IrvingUrea nitrogen [Mass/Vol]17.0 mg/dLNormal7.0-18.0The [facility] [facility]Comment [facility] above:Performed By: #### LIPID, T4, TSH, FT3, CMP #### [facility] [address] [place] [address] Dr. Maggy Carlos nitrogen/Creatinine [Mass ratio]19.1 mg/mgNormalThe [facility] AndersonComment on above:Performed By: #### LIPID, T4, TSH, FT3, CMP #### [facility] [address] [place] [address] Dr. Maggy Polanco 21-13-7450N9 [Mass/Vol]7.90 ug/dLNormal4.50-12.10The [facility] AndersonComment on above:Performed By: #### LIPID, T4, TSH, FT3, CMP #### [facility] [address] [place] [address] Dr. Maggy Pope 48-03-1099HNE0.949 uIU/mLCritically high0.358-3.740The [facility] AndersonComment on above:Performed By: #### LIPID, T4, TSH, FT3, CMP #### [facility] [address] [address] [address] Maggy Irving Vital Signs Date TimeVital SignValuePerforming ThgaxoflaZwwzudss43-87-2145 09:43-0400Body .8 [facility]20[facility] 09:43-0400Body mass index (BMI) [Ratio]34.4 kg/x3BusvxnphgHolzer Health System07-19-2024 09:43-0400Body vssoqavgwvr66.3 [degF][facility]07-19-2024 09:43-0400Body sjqejn065.08 kgHolzer Health System07-19-2024 09:43-0400Diastolic blood escfdkvk10 mm[Hg][facility] 04-06-2024 09:43-0400Heart rate87 /[facility] 04-06-2024 09:43-0400Respiratory rate18 /[facility] 04-06-2024 09:43-0996SnV6% (BldA) [Mass fraction]96 %[facility]07-19-2024 09:43-0400Systolic blood rfhakfcj372 mm[Hg][facility] Encounters Encounter DateEncounter TypeCare ProviderFacilityStart: 06-04-2025 End: 94-05-7359urnehuzcrfDqeozxm R NILLFacility: evtart: 06-04-2025 End: 28-12-1662Pasmhtj encounter procedureMichael R NILL [phone]-AwlrpKindred Healthcare [facility] Juany Start: 33-97-6095rzwydemiqhXuqkcxa NILLFacility: QuocueStart: 04-27-2024 End: 19-84-4616aizpdswpaiJykukuj M [facility] Work Phone: Start: 04-27-2024 End: 90-73-4070Wijkbmwk ReferredMD Marcella Gross Work Phone: [facility] Path Spec [place] HospStart: 04-06-2024 End: 83-93-6558ajlebmkjntTjhfqrpjrThe [facility] Work Phone: Start: 04-06-2024 End: 47-21-0954Aexgdsd encounter procedureFormerly [facility] Imtiaz Work Phone: Start: 02-10-2023 End: 78-97-6548sfzefbhpqpGRTPG D [facility] Hospitalc[facility]:O6Motcm: 02-07-2023 End: 68-84-1141ngnbhcbtdlVTRLV D [facility] COUNTYFacility:P4Esmlo: 31-65-0557Kkmkpyiey for preprocedural laboratory examinationPETER D [facility] Start: 01-31-2023 End: 46-40-6750wltluzksdaBY MARCELLA HOY .Facility:V7Bbjfz: 01-31-2023 End: 79-88-9767Bkwkznepa for preprocedural laboratory examinationDR MARCELLA HOY .Facility:Y7Ewidb: 01-25-2023 End: 26-14-4046shibpdlweeNV MARCELLA HOY .Facility:D4Xbmvs: 01-07-2023 End: 90-56-8655afcknpajxbSR MARCELLA HOY .Facility:J5Hwjer: 01-03-2023 End: 28-79-7577xoyivpjnuxWJ MARCELLA HOY .Facility:X0Udavc: 12-28-2022 End: 57-33-8479imheeutkdvHL MARCELLA HOY .Facility:L3Efnrb: 12-21-2022 End: 76-26-7588jnlvmirtxgHE MARCELLA HOY .Facility:X8Ozjhl: 12-07-2022 End: 46-36-4002fwuvlyvmewLG MARCELLA HOY .Facility:R1Xnbaq: 40-04-9734vozffpehfd PETER D [facility] Hospitalc[facility]:E0Ieeuu: 04-09-2022 End: 40-20-4515kuybzzmsvtIN MARCELLA HOY .Facility:H1 Procedures DateProcedureProcedure DetailPerforming ClinicianStart: 24-75-5396UOZ screening DR MARCELLA GROSS .Comment on above:Performed By: #### LIPID, T4, TSH, FT3, CMP #### [facility] [address] [place] [address] Dr. Maggy IrvingAmputation of fifth toeMichael NILL Repair of inguinal herniaMichael NILL Immunizations Immunization DateImmunizationNotesCare BfekvghwGeszxnkg64-21-3210JMTN-GsZ-4 (COVID-19) mRNA-1273 vaccineMichael NILL [phone]-DpnofRegency Hospital Company 54-44-9033EAQJ-CoV-2 (COVID-19) Ad26 vaccine, recombinantMichael NILL [phone]-MyrkxRegency Hospital Company Comment on above:Result Comment: 2025-05-15: [id number] Payers DatePayer CategoryPayerPolicy ID2025Medicare [id number] Health Insurance [id number]-pay1960Medicare [id number] 2..1.979850.3.57[id number] 2..1.949059.3.57[id number] 2..1.105869.3.57[id number] 2..1.710660.3.57[id number] 2..1.002490.3.57[id number] 2.0.1.909113.3.57[id number] 2.0.1.938812.3.57[id number] 2.0.1.807423.3.57[id number] 2.0.1.234476.3.57[id number] 2.0.1.938889.3.57[id number] 2.0.1.201978.3.57[id number] 2..1.005501.3.5[id number] 2..1.916413.3.579.2.531 Social History DateTypeDetailFacilityTobacco smoking status NHISUnknown if ever smokedPromedica Flower Hospital Work Phone: Start: 74-90-3358Apk Assigned At St. Elizabeth Hospitaltart: 76-04-6298Wapvpdy smoking statusNever smoked tobacco (finding)[facility] BellueTobacco smoking statusNeverKindred Healthcare General Surgery BellevueSexual OrientationKindred Healthcare [facility] [place] Sex Assigned At [facility] SexMale (finding)[facility] Clinical Note 06-04-2025 Note Date & UmitMpsrJziyuojo01-29-1784 NoteGeneral Surgery Office/Clinic Note Chief Complaint consultation for anemia and [...] male with h/o htn, hyperlipidemia, neuropathy, hypothyroidism, Nsnnzkw-Xtyzu-Rqxep disease, referred for positive fecal occult blood [...] swallowing difficulties, no hearing loss, no ear infection(s),no nose bleeds. Cardiovascular: normal blood pressure, no [...] Problem List/Past Medical History Ongoing BMI 35.0-35.9,adult Rkfgrab-Utqid-Dxrtt disease Chronic ulcer of left heel Class [...] SARS-CoV-2 (COVID-19) Ad26 vaccine 12/26/2020 Recorded 2025-05-15: FNS81Dkxkki [facility] InstituteComment on above:Result Comment: Electronically Signed By: SHANTELL MUÑOZ, Chirag Armando\Date and Time Signed: 06/04/25 15:00 EDT Clinical Note 02-07-2023 Note Date & WrdkBgjeVgzhnuyd59-80-5456 NotePROCEDURE: XR FOOT RT MIN 3 VIEWS HISTORY: Postoperative visit COMPARISON: [...] Electronically authenticated by: OLVIN KHANNA Date: 2023-02-07 09:41[facility] Evaluation + Plan note Note Date & TypeNoteFacilityEvaluation + Plan note No data available for this section [facility] [place] Evaluation note Note Date & TypeNoteFacilityEvaluation note* Diagnosis Onset Date Resolution Status Bacterial conjunctivitis of right eye [facility] Work Phone: Hospital Discharge instructions Note Date & TypeNoteFacilityHospital Discharge instructions No data available for this section [facility] Progress note Note Date & TypeNoteFacilityProgress note No data available for this section [facility] Summary Purpose Family History No Family History Records Found Relationship Condition Age at Onset Recorded Date/T cornelia father Unknown motherHistory of strokeUnknownDeceasedUnknown Advance Directives No Advanced Directives Records Found Advance Directive Response Recorded Date/ Time Advance Directives No April 06 9:22am Chief Complaint and Reason for Visit Chief Complaint poss pink eye right Reason for Visit Bacterial conjunctiv itis of right eye Chief Complaint poss pink eye right UnknownReason for VisitBacterial conjunctivitis of right eye Additional Source Comments (unrecognized sect ion and content) No Status Records FoundNo Status Records FoundNo Status Records Found INFORMATION SOURCE (unrecogn ized section and content) DATE CREATED AUTHOR 02/25/2023 [facility] DATE CREATED AUTHOR AUTHOR'S ORGANIZ ATION 05/02/2024 [facility] DATE CREATED AUTHOR AUTHOR'S ORGANIZ ATION 06/05/2025 [facility] Care Teams (unrecognized sec tion and content) Team Status: Active Member Role Status Dates Marcella Gross MD Primary Care Provider Active Team Status: Inactive Member Role Status Dates Marcella Gross MD Primary Care Provider Active Start: April 06, 2024 End: April 06, 2024Ramona Mcgill APRNAtshant ProviderActiveStart: April 06, 2024 End: April 06, 2024 [...] BE BASED ON THE PRIMARY CLINICAL RECORDS. [employer] [facility]. provides no warranty or guarantee of the accuracy or completeness of information in this document.
== END 2025-07-09 10:12 | disposition home or self-care (01) ==
LOC: WC 10:11
PROVIDERS: PCP Family Medicine; Visit Provider Physician Assistant
DX: L97.412 Non-pressure chronic ulcer of right heel and midfoot with fat layer exposed (principal); L89.892 Pressure ulcer of other site, stage 2
CPT/HCPCS: 11043

== ENCOUNTER 2025-07-10 06:06 | Day surgery (SDC) | payer MEDICARE, OTHER, SELFPAY ==
--- OUTSIDE RECORDS SUMMARY | 2024-06-20 05:00 | XMS_ITS ---
Author Organization The [facility] in [place] Address [address] [place] [address] Care Team Providers Care Graphic Arts Instructor Name Role Phone Renato Quinn Primary Care Provider [phone] Gaudencio Wilson [phone] REASON FOR VISIT 8 week f/u Encounters Encounter Location Date Provider Diagnosis [facility] (PODIATRY) [address] [place] [address] [place] [address] 06/20/2024 Gaudencio Schneider Plan Of Treatment Next Appt Details Provider Name:Quinn Gross, 09:15:00 AM, [address] [facility] [place], [address], Progress Notes * Michael OJEDA LDOB:1949 (75 yo M)Acc No.[id number]:06/20/2024 UNLOCKED PROGRESS NOTE Follow Up Patient: Michael HAGER :?Gaudencio Schneider DPM, MSDOB:1950???Age: 74 Y???Sex:MaleDate:4Phone:[phone]:[address] [place] [address], [place], [place]-[id number]:Quinn Gross Subjective: * Chief Complaints: * 1 . 8 week f/u. * Medical History: Objective: * Vitals: Assessment: Plan: * Treatment: * * Electronic signature of Gaudencio Schneider DPM on 07/10/2025 at 06:09 AM EDTSign off status: PendingVisit Status:?CANC (Cancelled) * Provider: Helen Schneider DPM, MS Date: Generated for Printing/Faxing/eTransmitting on:?07/10/2025 06:09 AM EDT
--- NOTE | 2025-07-10 | OP_ITS ---
OPERATION DATE: 07/10/2025 PREOPERATIVE DIAGNOSIS: Positive fecal occult stool test. POSTOPERATIVE DIAGNOSIS: Sigmoid diverticulosis. PROCEDURE: Colonoscopy to cecum. SURGEON: Chirag Montaño M.D. ANESTHESIA: Monitored anesthesia care. ESTIMATED BLOOD LOSS: Zero. INDICATIONS AND CONSENT: Patient is a 75-year-old male, presents for evaluation of positive fecal occult blood test. Indications, risks, benefits, alternatives of proceeding with colonoscopy were explained extensively to the patient, including the risks of bleeding, colon perforation or anesthetic complications. All of his questions were answered. Informed consent was obtained. PROCEDURE: Patient brought to the operating room, placed in the left lateral decubitus position. Monitored anesthesia care was provided. Rectal exam was performed which showed no masses or blood. The scope was inserted into the anal canal. Under direct visualization was advanced. With the aid of abdominal compression, it was advanced to the cecum, where cecal markings were clearly identified. Upon withdrawal of the scope, mucosal surfaces were carefully examined. There were no mass lesions or polyps. No inflammatory changes or ulcerations. There was moderate sigmoid diverticulosis without inflammatory changes or scarring. The scope was retroflexed in the anal canal. There were some small internal/external hemorrhoids without inflammation or bleeding. The scope was then withdrawn. Patient tolerated procedure well, was sent to recovery room in good condition. Follow up colonoscopy should be in 10 years, if he remains in good health. CC: Brock Gross M.D. [place]
--- OUTSIDE RECORDS SUMMARY | 2025-07-10 06:08 | XMS_ITS | CCD ---
Author Organization [facility] Care Team Providers Care Wind Energy Technician Name Role Phone CHEIKH ., DR [...] [No Known Medication Allergies]Propensity to adverse reactions (disorder)[facility] Medications Current Medications MedicationDrug Class(es)DatesSig (Normalized)Sig (Original)aspirin 325 mg delayed release oral tablet (1 source)Platelet Aggregation Inhibitor, Nonsteroidal Anti-inflammatory Drug Start: 36-73-9709uyzo 2 tablets by mouth once dailyaspirin 325 mg Oral EC Tab 650 mg = 2 tab(s), Oral, Daily, Refills(s) 0 Start Date: 05/15/25 Status:Ordered Repeat number: 1doxazosin 4 mg oral tablet (3 sources)alpha-Adrenergic BlockerStart: 78-95-3404ocuq 1 tablet by mouth once dailydoxazosin 4 mg Tab 4 mg = 1 tab(s), Oral, Daily, Refills(s) 0 Start Date: 05/15/25 Status: Ordered Repeat number: 1Start: 84-64-2457Lbzpinnkp Active MG PO April 06, 2024 12:00amferrous sulfate 325 mg oral tablet (1 source)Start: 76-99-9549yrxh 1 tablet by mouth twice dailyferrous sulfate 325 mg Tab 325 mg = 1 tab(s), Oral, BID, Refills(s) 0 Start Date: 06/04/25 Status: Or dered Repeat number: 1levothyroxine sodium 0.075 mg oral tablet (3 sources)l-ThyroxineStart: 82-63-5380hzyx 1 tablet by mouth once daily levothyroxine 75 mcg (0.075 mg) Tab 75 mcg = 1 tab(s), Oral, Daily, Refills(s) 0 Start Date: 05/15/25 Status: Ordered Repeat number: 1Start: 04-06-2024 Levothyroxine Active MCG PO April 06, 2024 12:00ammagnesium oxide 500 mg oral tablet (3 sources)Start: 64-66-8106zink 1 tablet by mouth once dailymagnesium oxide 500 mg oral tablet 500 mg = 1 tab(s), Oral, Daily, Refills(s) 0 Start Date: 06/04/25 Status: Ordered Repeat number: 1Start: 30-21-7444lhjh 500 mg by mouth once daily Magnesium Oxide Active 500 MG PO Daily April 06, 2024 12:00amofloxacin 3 mg/ml ophthalmic solution (2 sources)Quinolone AntimicrobialStart: 20-82-4025viqz 1 drop(s) into the eye(s) four times dailyOfloxacin Active 2 DROPS OPHTHALMIC Four times daily 10 April 06, 2024 12:00am right eyeoxybutynin chloride 5 mg oral tablet (2 sources)Cholinergic Muscarinic AntagonistStart: 28-60-9532Ksusbqpuwf Chloride Active MG PO April 06, 2024 12:00am Problems Active Problems Problem ClassificationProblemDateDocumented DateEpisodic/ChronicAcquired foot deformities (1 source)Other acquired deformities of right foot; Translations: [OTHER ACQUIRED DEFORMITIES RT FOOT]Onset: 48-29-1725NevumjaxBaqseps ulcer of skin (5 sources)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 breakdown of skin; Translations: [Non-pressure chronic ulcer of right heel and midfoot with fat layer exposed]Onset: 42-32-5955UyltzaqSkdzmntwyygwa of surgical procedures or medical care (4 sources)Other complications of amputation stump; Translations: [OTH COMPLICATIONS AMPUTATION STUMP]Onset: 88-58-3031YvohohdqXqwwswnaie heart failure; nonhypertensive (1 source)Unspecified diastolic (congestive) heart failure; Translations: [UNSPECIFIED DIASTOLIC HEART FAILURE]Onset: 14-19-9302GariqclOeizavczlb and other anemia (1 source)Anemia, unspecified; Translations: [ANEMIA UNSPECIFIED]Onset: 81-08-3129RbfbyfjkKxnqcopm mellitus with complications (1 source)Type 2 diabetes mellitus with foot ulcer; Translations: [TYPE 2 DM W/FOOT ULCER]Onset: 13-56-2048FujedumEfplvvutw of lipid metabolism (2 sources)Hyperlipidemia, unspecified; Translations: [Hyperlipidemia]Onset: 87-00-716880570373-75-5141HqzambgDhgcjcaya hypertension (2 sources)Essential (primary) hypertension; Translations: [Hypertensive disorder]Onset: 616214-97-0417GcfmqpaMhmvrdzgxxga with complications and secondary hypertension (1 source)Hypertensive heart disease with heart failure; Translations: [HTN HEART DISEASE W/HEART FAIL]Onset: 91-38-1325NbhkvwgZtjobbzhktmp; infection of eye (except that caused by tuberculosis or sexually transmitteddisease) (4 sources)Bacterial conjunctivitis; Translations: [Unspecified conjunctivitis] 58-75-0681KxjwtitsIwtpg aftercare (1 source)Other oil heaterman (current) drug therapy; Translations: [OTH SENIOR CARE CURRENT DRUG THERAPY]Onset: 68-76-6639KudrqystFgsrd endocrine disorders (1 source)Testicular zsmuhyyapqws67-77-7277FxyoteiNaeod gastrointestinal disorders (1 source)Abnormal feces; Translations: [Other fecal abnormalities]Onset: 22-74-2358OrluxyfrNjzey gastrointestinal disorders (2 sources)Occult blood in hogpqi10-79-8765QfjqladrCnaxn lower respiratory disease (4 sources)Dyspnea, unspecified; Translations: [DYSPNEA UNSPECIFIED]Onset: 91-31-3822UjggngzkYhmdk lower respiratory disease (4 sources)Other forms of dyspnea; Translations: [OTHER FORMS OF DYSPNEA]Onset: 86-23-0894KwhbzlogLjsnd nervous system disorders (1 source)Polyneuropathy, unspecified; Translations: [POLYNEUROPATHY UNSPECIFIED]Onset: 83-46-6506LpcwhgrVnrgw nervous system disorders (1 source)Hereditary motor and sensory plkwkfsutn66-88-4764QkxsmaaCuhpr nervous system disorders (1 source)Frxsbfeusf77-60-6549SodvnloNacnd nutritional; endocrine; and metabolic disorders (1 source)Body mass index 30+ - zeeuyrw67-44-2479OklzzjjFjpwo nutritional; endocrine; and metabolic disorders (1 source)Obese class FSF53-36-0786NxpbqjrQaxvr skin disorders (1 source)Epidermal thickening, unspecified; Translations: [EPIDERMAL THICKENING UNSPECIFIED]Onset: 58-21-6488IictzineLqekoros codes; unclassified (1 source)Localized edema; Translations: [LOCALIZED EDEMA]Onset: 01-06-2023 EpisodicThyroid disorders (5 sources)Hypothyroidism, unspecified; Translations: [Hypothyroidism]Onset: 92-69-1021NjhtjwiHrdzmfzycyeb (1 source)Chronic ulcer of left zwet53-60-8761 Past or Other Problems Problem ClassificationProblemDateDocumented DateEpisodic/ChronicMalaise and fatigue (1 source)Other fatigue; Translations: [OTHER FATIGUE]Onset: 69-35-1329Vjdxenvq Other screening for suspected conditions (not mental disorders or infectious disease) (6 sources)Other specified abnormal findings of blood chemistry; Translations: [Encounter for screening for malignant neoplasm of prostate]Onset: 04-09-2022 Episodic Results Test NameValueInterpretationReference RangeFacilityAmbulatory Visit Summaryon 62-79-7173Etjzgphwqa Visit SummaryAmbulatory Visit Summary SILVINO OJEDA :1950 [...] are currently receiving treatment for. BMI 35.0-35.9,adult Xqblllr-Hxcmw-Awame disease Chronic ulcer of left heel Class [...] signed up for this yet, please contact [employer] at [phone] to get signed up today. Language Information Language assistance services are available as needed. [facility] HospitalLo 48-39-2658IHxlvhkbq: [id number] Received: 04/30/24 Status: CASS Moore Num: [id number] Spec Type: Impression Subm Dr: Marcella Gross MD Tissues: PATHPER Procedures: PATHREVIEW Age/ Patient Sex Location Account Attending Physician Silvino Ojeda 74/M [facility] [id number] Marcella Gross MD SPEC NUM: [id number] RECD: 04/30/24 STATUS: CASS MOORE NUM: [id number] KAREN: 04/27/[address]: Marcella Gross MD ENTERED: 04/30/[address] [facility] DR: SPEC TYPE: Impression DEPT: ALEXSANDRA Cervantes ENTERED BY: [id number] RECV BY: [id number] ORDERED: PATHREVIEW ORDERED: PATHREVIEW Pathologist Review Abnormal [...] shifted granulocytes, or granulocytic dysplasia observed CPT: 56780 Specimen: [id number] Received: 04/30/24 Status: CASS Moore Num: [id number] Spec Type: Impression Subm Dr: Marcella Gross MD Tissues: PATHPER Procedures: PATHREVIEW Patient: Silvino Ojeda [id number] (Continued) Signed (signature on file) Celia Irving MD 04/30/[address] [place] [address] Physician GroupCULTURE OTHERon 97-40-8873INCBFXH OTHER Isolate 1 Staphylococcus aureus Light growth [...] <=0.5 S F Trimethoprim/Sulfamethoxazole <=10 S FNormalThe [facility] NorthComment on above:Performed By: #### LIPID, T4, TSH, FT3, CMP #### [facility] [address] [place] [address] Dr. Maggy MatosNGAL CULTUREon 44-97-9710Fzlasr StainFinal Tuscarawas HospitalComment on above:Performed By: #### LIPID, T4, TSH, FT3, CMP #### [facility] [address] [place] [address] Dr. Maggy Hamilton 1CCleveland Clinic Hillcrest HospitalComment on above:Result Comment: SUDHIR/Calcofluor preparation: no fungus observed.Performed By: #### LIPID, T4, TSH, FT3, CMP #### [facility] [address] [place] [address] Dr. Maggy IrvingACID FAST SMEAR AND CXon 68-42-6231Ptwz Fast SmearNegativeNoGeorgetown Behavioral HospitalComment on above:Performed By: #### AFB #### [facility] [address] [place] [address] Dr. Maggy Alberts Specimen ProcessingTissuSelect Medical Specialty Hospital - Boardman, Inc Comment on above:Performed By: #### AFB #### [facility] [address] [place] [address] Dr. Maggy Greenberg ANAEROBICon 99-56-9271PZITLDM ANAEROBICIsolate 1 Alyceia magna Light growth [facility] HospitalComun[facility] on above:Result Comment: EVIDENCE BASED PRACTICE BY [facility] HAS DEMONSTRATED THAT FINEGREGORIOIA SPECIES ARE ROUTINELY SUSCEPTIBLE TO PIPERACILLIN-TAZOBACTAM, CEFOXITIN, ERTAPENEM, IMIPENEM METRONIDAZOLE AND VARIABLY RESISTANT TO CLINDAMYCIN.Performed By: #### LIPID, T4, TSH, FT3, CMP #### [facility] [address] [address] [address] Maggy Potts STAINon 69-74-3546UYNVZXDAMQ ORGANISMS [facility] HospitalCom[facility] on above:Performed By: #### GSTAIN #### [facility] [address] [place] [address] Dr. Maggy SolisPHTHEROIDSVan Wert County HospitalComuniversity of mich[facility] health on above:Performed By: #### GSTAIN #### [facility] [address] [address] [address] Maggy SpencerLIALSVan Wert County HospitalComuniversity of [facility] health on above:Performed By: #### GSTAIN #### [facility] [address] [address] [address] Maggy MatosNGAL ELEMENTSVan Wert County HospitalComuniversity of mich[facility] health on above: Performed By: #### GSTAIN #### [facility] [address] [address] [address] Maggy Potts NEG [facility]Com[facility] on above: Performed By: #### GSTAIN #### [facility] [address] [place] [address] Dr. Maggy Potts NEG DIPPLOCOCCIVan Wert County HospitalComuniversity of [facility] health on above: Performed By: #### GSTAIN #### [facility] [address] [place] [address] Dr. Maggy Potts POS BACILLIVan Wert County HospitalComuniversity of michigan health on above: Performed By: #### GSTAIN #### [facility] [address] [place] [address] Dr. Maggy Potts POSITIVE COCCINoAvita Health System Bucyrus HospitalComment on above: Performed By: #### GSTAIN #### [facility] [address] [address] [address] Maggy Potts STAIN IRFCCG4zq Metatarsal BoneVan Wert County Hospital Comment on above:Performed By: #### GSTAIN #### [facility] [address] [address] [address] Maggy Wagner_DIPTHVan Wert County HospitalComment on above:Performed By: #### GSTAIN #### [facility] [address] [address] [address] Maggy IrvingWBCRARENormalMemorial Health System Marietta Memorial HospitalComment on above:Performed By: #### GSTAIN #### [facility] [address] [address] [address] Maggy IrvingPOINT OF CARE GLUCOSEon 58-90-4437Fmilzza [Mass/Vol]114 mg/dL Critically xtdc35-165JhxMemorial Health System Marietta Memorial HospitalComment on above:Performed By: #### POCGLUC #### [facility] [address] [address] [address] Maggy IrvingGlucose [Mass/Vol]122 mg/dLCritically waix47-036BakMemorial Health System Marietta Memorial HospitalComment on above:Performed By: #### POCGLUC #### [facility] [address] [address] [address] Maggy IrvingPROF CHEM 8 (BAS METB)on 09-54-0937Efqas gap [Moles/Vol]12.0 mmol/LNormalMemorial Health System Marietta Memorial HospitalComment on above:Performed By: #### LIPID, T4, TSH, FT3, CMP #### [facility] [address] [address] [address] Maggy IrvingCalcium [Mass/Vol]8.7 mg/dLNormal8.5-10.1[facility] Comment on above:Performed By: #### LIPID, T4, TSH, FT3, CMP #### [facility] [address] [address] [address] Maggy IrvingChloride [Moles/Vol]104 mmol/GSualmm21-835WtgMemorial Health System Marietta Memorial Hospital Comment on above:Performed By: #### LIPID, T4, TSH, FT3, CMP #### [facility] [address] [address] [address] Maggy IrvingCO2 [Moles/Vol]28.1 mmol/RDzmtie63.0-32.0The [facility] Comment on above:Performed By: #### LIPID, T4, TSH, FT3, CMP #### [facility] [address] [address] [address] Maggy IrvingCreatinine [Mass/Vol]0.80 mg/dLNormal0.70-1.30The [facility] NorthComment on above:Performed By: #### LIPID, T4, TSH, FT3, CMP #### [facility] [address] [place] [address] Dr. Maggy AndradeGFR-AF DANISH>60Normal>=60The [facility] NorthComment on above:Performed By: #### LIPID, T4, TSH, FT3, CMP #### [facility] [address] [place] [address] Dr. Maggy AndradeGFR-NON AF DANISH>60Normal>=60The [facility] NorthComment on above:Performed By: #### LIPID, T4, TSH, FT3, CMP #### [facility] [address] [place] [address] Dr. Maggy IrvingGlucose [Mass/Vol]129 mg/dLCritically fxtx31-050Evf [facility] NorthComment on above:Performed By: #### LIPID, T4, TSH, FT3, CMP #### [facility] [address] [place] [address] Dr. Maggy IrvingPotassium [Moles/Vol]4.1 mmol/LNormal3.5-5.1[facility] Comment on above:Performed By: #### LIPID, T4, TSH, FT3, CMP #### [facility] [address] [place] [address] Dr. Maggy IrvingSodium [Moles/Vol]140 mmol/XFdajdl959-191FypMemorial Health System Marietta Memorial Hospital Comment on above:Performed By: #### LIPID, T4, TSH, FT3, CMP #### [facility] [address] [address] [address] Maggy Carlos nitrogen [Mass/Vol]20.0 mg/dLCritically high7.0-18.0The [facility] NorthComment on above:Performed By: #### LIPID, T4, TSH, FT3, CMP #### [facility] [address] [place] [address] Dr. Maggy Carlos nitrogen/Creatinine [Mass ratio]25.0 mg/mgNormalThe [facility] NorthComment on above:Performed By: #### LIPID, T4, TSH, FT3, CMP #### [facility] [address] [place] [address] Dr. Maggy ReyesEE T3on 62-44-8310ZUXC T33.24 pg/mlLNormal2.18-3.98The [facility] NorthComment on above:Performed By: #### LIPID, T4, TSH, FT3, CMP #### [facility] [address] [place] [address] Dr. Maggy IrvingT4on 33-39-2018V2 [Mass/Vol]9.10 ug/dLNormal4.50-12.10The [facility] NorthComment on above:Performed By: #### LIPID, T4, TSH, FT3, CMP #### [facility] [address] [place] [address] Dr. Maggy IrvingTSHoroxy 03-54-0962SYH4.957 uIU/mLCritically high0.358-3.740The [facility] NorthComment on above:Performed By: #### LIPID, T4, TSH, FT3, CMP #### [facility] [address] [place] [address] Dr. Maggy IrvingNM STRESS/REST MULTIon 03-72-7024KC STRESS/REST MULTIPatient: SILVINO OJEDA Exam Date: 01/03/2023 : 1950 Gender:M Ordering : DR MARCELLA GROSS . Admission #: [id number] Family : Order #: [id number] CLICK HERE TO VIEW EXAM RADIOLOGY REPORT [...] by: Olvin Khanna M.D. on 01/04/2023 at 07:45Van Wert County HospitalECHOCARDIO M/2D COMPLETEon 86-02-9898WKPPBCZNJS M/2D COMPLETEPatient: SILVINO OJEDA Exam Date: 12/21/2022 : 1950 Gender:M Ordering : DR MARCELLA GROSS . Admission #: [id number] Family : Order #: [id number] CLICK HERE TO VIEW EXAM ECHOCARDIOGRAM REPORT [...] by: Dez Ling M.D. on 12/23/2022 at 18:05[facility] County HospitalBNPon 69-52-7264Yonlngpmggc peptide B (Bld) [Mass/Vol]37.0 pg/mLNormal <=900.0The [facility] NorthComment on above:Performed By: #### LIPID, T4, TSH, FT3, CMP #### [facility] [address] [place] [address] Dr. Maggy Crocker AUTO DIFFon 17-40-9573GWEJ #0.0 103/ulNormal0.0-0.1The [facility] NorthComment on above:Performed By: #### LIPID, T4, TSH, FT3, CMP #### [facility] [address] [place] [address] Dr. Maggy IrvingBasophils/100 WBC (Bld)0.2 %Normal0.2-2.0The [facility] Comment on above:Performed By: #### LIPID, T4, TSH, FT3, CMP #### [facility] [address] [place] [address] Dr. Maggy Zurita #0.2 103/ulNormal0.0-0.7The St. [facility]'s Medical Centerment on above: Performed By: #### LIPID, T4, TSH, FT3, CMP #### [facility] [address] [place] [address] Dr. Maggy Andradeosinophils/100 WBC (Bld)3.7 %Normal0.9-7.0The [facility] Comment on above:Performed By: #### LIPID, T4, TSH, FT3, CMP #### [facility] [address] [place] [address] Dr. Maggy Andraderythrocyte distribution width (RBC) [Ratio]11.9 %Sukiop75.0-15.[address] [facility] Centerment on above:Performed By: #### LIPID, T4, TSH, FT3, CMP #### [facility] [address] [place] [address] Dr. Maggy IrvingHematocrit (Bld) [Volume fraction]39.7 %Critically low42.0-54.[address] [facility] Centerment on above:Performed By: #### LIPID, T4, TSH, FT3, CMP #### [facility] [address] [place] [address] Dr. Maggy IrvingHemoglobin (Bld) [Mass/Vol]14.0 g/hUKoyhrm82.0-18.0The [facility] Centerment on above:Performed By: #### LIPID, T4, TSH, FT3, CMP #### [facility] [address] [place] [address] Dr. Maggy Cyr #0.02 10e3/ulNormal0.00-0.03The [facility] Centerment on above:Performed By: #### LIPID, T4, TSH, FT3, CMP #### [facility] [address] [place] [address] Dr. Maggy Cyr %0.5 %Normal0.0-0.5The Susanville HospitalComment on above: Performed By: #### LIPID, T4, TSH, FT3, CMP #### [facility] [address] [place] [address] Dr. Maggy Ordaz #0.9 103/ulCritically low1.2-3.8The [facility] Comment on above:Performed By: #### LIPID, T4, TSH, FT3, CMP #### [facility] [address] [place] [address] Dr. Maggy Heltonhocytes/100 WBC (Bld)21.1 %Cvhpwb79.5-60.0The [facility] NorthComment on above:Performed By: #### LIPID, T4, TSH, FT3, CMP #### [facility] [address] [place] [address] Dr. Maggy Prajapati DIFF REQNONormalThe [facility] NorthComment on above: Performed By: #### LIPID, T4, TSH, FT3, CMP #### [facility] [address] [place] [address] Dr. Maggy Cunningham (RBC) [Entitic mass]30.5 zxTebhsi61.9-34.0The [facility] NorthComment on above:Performed By: #### LIPID, T4, TSH, FT3, CMP #### [facility] [address] [place] [address] Dr. Maggy Cunningham (RBC) [Mass/Vol]35.3 g/dLCritically high29.9-35.2The St. [facility] Medical Centerment on above:Performed By: #### LIPID, T4, TSH, FT3, CMP #### [facility] [address] [place] [address] Dr. Maggy Cunningham (RBC) [Entitic vol]86.5 dJCjsyup56.0-94.0The [facility] on above:Performed By: #### LIPID, T4, TSH, FT3, CMP #### [facility] [address] [place] [address] Dr. Maggy Pablo #0.4 103/ulNormal0.3-0.8The [facility] Centerment on above:Performed By: #### LIPID, T4, TSH, FT3, CMP #### [facility] [address] [place] [address] Dr. Maggy Batesocytes/100 WBC (Bld)8.7 %Normal1.7-12.0The [facility] Comment on above:Performed By: #### LIPID, T4, TSH, FT3, CMP #### [facility] [address] [place] [address] Dr. Maggy Huffman #2.9 103/ulNormal1.4-6.5The [facility] NorthComment on above:Performed By: #### LIPID, T4, TSH, FT3, CMP #### [facility] [address] [place] [address] Dr. Maggy Barbourutrophils/100 WBC (Bld)65.8 %Foahqj73.0-75.0The St. [facility] Medical Centerment on above:Performed By: #### LIPID, T4, TSH, FT3, CMP #### [facility] [address] [place] [address] Dr. Maggy IrvingPlatelet mean volume (Bld) [Entitic vol]9.9 fLNormal9.5-13.5The [facility] on above:Performed By: #### LIPID, T4, TSH, FT3, CMP #### [facility] [address] [place] [address] Dr. Maggy IrvingPLT128 103/ulCritically fia350-040Ofh St. [facility]'s Medical Centerment on above:Performed By: #### LIPID, T4, TSH, FT3, CMP #### [facility] [address] [place] [address] Dr. Maggy IrvingRBC4.59 106/ulCritically low4.70-6.10The [facility] on above:Performed By: #### LIPID, T4, TSH, FT3, CMP #### [facility] [address] [place] [address] Dr. Maggy IrvingWBC4.4 103/ulNormal4.0-11.0The [facility] on above: Performed By: #### LIPID, T4, TSH, FT3, CMP #### [facility] [address] [place] [address] Dr. Maggy Gresham THYROXINE INDEX T7on 06-75-6192UYL6.39Bvcfer8.30-4.50[facility] on above:Performed By: #### LIPID, T4, TSH, FT3, CMP #### [facility] [address] [place] [address] Dr. Maggy IrvingT3U34.0 %Uffouj96.0-40.0The [facility] NorthComuniversity of mich[facility] health on above: Performed By: #### LIPID, T4, TSH, FT3, CMP #### [facility] [address] [place] [address] Dr. Maggy IrvingT4 [Mass/Vol]8.00 ug/dLNormal4.50-12.10ThThe [facility] Comment on above:Performed By: #### LIPID, T4, TSH, FT3, CMP #### [facility] [address] [place] [address] Dr. Maggy Cervantes 02-19-0367Lqyj [Mass/Vol]134.0 ug/kGNwzeea93.0-175.0[facility] HospitalComment on above:Performed By: #### LIPID, T4, TSH, FT3, CMP #### [facility] [address] [place] [address] Dr. Maggy IrvingLIPID PROFILEon 35-01-7349TLTA-HDL RATIO NORMSEE BELOWNoAvita Health System Bucyrus HospitalComment on above:Result Comment: 3.3 - 4.4 LOW RISK 4.4 - 7.1 AVERAGE RISK 7.1 - 11.0 MODERATE RISK >11.0 HIGH RISKPerformed By: #### LIPID, T4, TSH, FT3, CMP #### [facility] [address] [place] [address] Dr. Maggy IrvingCholesterol [Mass/Vol]180 mg/dLNormal<=200The [facility] Comment on above:Performed By: #### LIPID, T4, TSH, FT3, CMP #### [facility] [address] [address] [address] Maggy Bangesterjun in HDL [Mass/Vol]37 mg/dLCritically haz38-58Yuh [facility] on above:Performed By: #### LIPID, T4, TSH, FT3, CMP #### [facility] [address] [place] [address] Dr. Maggy Bangesterol in LDL [Mass/Vol]95.2 mg/dLNoThe [facility] on above:Performed By: #### LIPID, T4, TSH, FT3, CMP #### [facility] [address] [place] [address] Dr. Maggy Bellamy.total/Cholesterol in HDL [Mass ratio]4.9 {ratio} NormalSum[facility] on above:Performed By: #### LIPID, T4, TSH, FT3, CMP #### [facility] [address] [place] [address] Dr. Maggy Garcia NORMAL> or = 60 mg/dl - LOW CARDIOVASCULAR RISK <40 mg/dl - HIGH CARDIOVASCULAR RISKLima Memorial Hospital on above:Performed By: #### LIPID, T4, TSH, FT3, CMP #### [facility] [address] [place] [address] Dr. Maggy Mullen CALC NORMALSEE BELOWLima Memorial Hospital on above:Result Comment: <100 mg/dl OPTIMAL 100 - 129 mg/dl NEAR OR ABOVE OPTIMAL 130 - 159 mg/dl BORDERLINE HIGH 160 - 189 mg/dl HIGH >190 mg/dl VERY HIGH Performed By: #### LIPID, T4, TSH, FT3, CMP #### [facility] [address] [place] [address] Dr. Maggy IrvingTriglyceride [Mass/Vol]239 mg/dLCritically high<=150[facility] on above:Performed By: #### LIPID, T4, TSH, FT3, CMP #### [facility] [address] [place] [address] Dr. Maggy StarkLDL CALC47.8 mg/dLNormalThe [facility] NorthComment on above: Performed By: #### LIPID, T4, TSH, FT3, CMP #### [facility] [address] [address] [address] Maggy Carrasco 14(COMP METB)on [id number] [Mass/Vol]3.8 g/dLNormal 3.4-5.0The [facility] NorthComment on above:Performed By: #### LIPID, T4, TSH, FT3, CMP #### [facility] [address] [address] [address] Maggy IrvingAlbumin/Globulin [Mass ratio]1.1 {ratio}NormalThe St. [facility] Centerment on above:Performed By: #### LIPID, T4, TSH, FT3, CMP #### [facility] [address] [place] [address] Dr. Maggy Cutler [Catalytic activity/Vol]53 U/BIswhdg12-604Wlt [facility] Centerment on above:Performed By: #### LIPID, T4, TSH, FT3, CMP #### [facility] [address] [address] [address] Maggy Cloud [Catalytic activity/Vol]43 U/RRnhsin08-50Juy [facility]ment on above:Performed By: #### LIPID, T4, TSH, FT3, CMP #### [facility] [address] [address] [address] Maggy Alarcon gap [Moles/Vol]12.2 mmol/LNormalThe [facility] Comment on above:Performed By: #### LIPID, T4, TSH, FT3, CMP #### [facility] [address] [place] [address] Dr. Maggy Martinez [Catalytic activity/Vol]22 U/ABwluzn99-08Unz [facility] Centerment on above:Performed By: #### LIPID, T4, TSH, FT3, CMP #### [facility] [address] [address] [address] Maggy Fallonirubin [Mass/Vol]0.6 mg/dLNormal0.2-1.0The [facility] Comment on above:Performed By: #### LIPID, T4, TSH, FT3, CMP #### [facility] [address] [place] [address] Dr. Maggy IrvingCalcium [Mass/Vol]8.9 mg/dLNormal8.5-10.1The [facility] Comment on above:Performed By: #### LIPID, T4, TSH, FT3, CMP #### [facility] [address] [place] [address] Dr. Maggy IrvingChloride [Moles/Vol]104 mmol/DPduhkf51-818Tvk [facility] Comment on above:Performed By: #### LIPID, T4, TSH, FT3, CMP #### [facility] [address] [place] [address] Dr. Maggy IrvingCO2 [Moles/Vol]28.8 mmol/ZFuzloc13.0-32.0The [facility] Comment on above:Performed By: #### LIPID, T4, TSH, FT3, CMP #### [facility] [address] [place] [address] Dr. Maggy IrvingCreatinine [Mass/Vol]0.83 mg/dLNormal0.70-1.30The [facility] NorthComment on above:Performed By: #### LIPID, T4, TSH, FT3, CMP #### [facility] [address] [place] [address] Dr. Maggy AndradeGFR-AF DANISH>60Normal>=60The [facility] NorthComment on above:Performed By: #### LIPID, T4, TSH, FT3, CMP #### [facility] [address] [place] [address] Dr. Maggy AndradeGFR-NON AF DANISH>60Normal>=60The [facility] on above:Performed By: #### LIPID, T4, TSH, FT3, CMP #### [facility] [address] [place] [address] Dr. Maggy IrvingGlobulin (S) [Mass/Vol]3.4 g/dLNormalThe [facility] NorthComment on above:Performed By: #### LIPID, T4, TSH, FT3, CMP #### [facility] [address] [address] [address] Maggy IrvingGlucose [Mass/Vol]116 mg/dLCritically oqvu69-880Vaq [facility] Centerment on above:Performed By: #### LIPID, T4, TSH, FT3, CMP #### [facility] [address] [place] [address] Dr. Maggy IrvingPotassium [Moles/Vol]4.0 mmol/LNormal3.5-5.1The [facility] Comment on above:Performed By: #### LIPID, T4, TSH, FT3, CMP #### [facility] [address] [place] [address] Dr. Maggy IrvingProtein [Mass/Vol]7.2 g/dLNormal6.4-8.2The [facility] Comment on above:Performed By: #### LIPID, T4, TSH, FT3, CMP #### [facility] [address] [place] [address] Dr. Maggy IrvingSodium [Moles/Vol]141 mmol/GLyapqu726-176Ahp [facility] Comment on above:Performed By: #### LIPID, T4, TSH, FT3, CMP #### [facility] [address] [place] [address] Dr. Maggy IrvingUrea nitrogen [Mass/Vol]17.0 mg/dLNormal7.0-18.0The [facility] NorthComment on above:Performed By: #### LIPID, T4, TSH, FT3, CMP #### [facility] [address] [place] [address] Dr. Maggy Carlos nitrogen/Creatinine [Mass ratio]20.5 mg/mgNoAvita Health System Bucyrus HospitalComuniversity of [facility] health on above:Performed By: #### LIPID, T4, TSH, FT3, CMP #### [facility] [address] [place] [address] Dr. Maggy Pope 95-15-3579DSV9.531 uIU/mLCritically high0.358-3.740[facility] HospitalComment on above:Performed By: #### LIPID, T4, TSH, FT3, CMP #### [facility] [address] [place] [address] Dr. Maggy IrvingTESTOSTERONE, TOTALon 40-27-7024Azyonujmierr [Mass/Vol]390 ng/dL Fmsatk794-190Hdc [facility] NorthComment on above:Result Comment: Adult male reference interval is based on a population of healthy nonobese males (BMI <30) between 19 and 39 years old. dave Jacobs.al. JCEM 2017,102;3159-2020. PMID: [id number].Performed By: #### LIPID, T4, TSH, FT3, CMP #### [facility] [address] [place] [address] Dr. Maggy IrvingCBC AUTO DIFFon [id number] #0.0 103/ulNormal0.0-0.1[facility] HospitalComment on above:Performed By: #### LIPID, T4, TSH, FT3, CMP #### [facility] [address] [place] [address] Dr. Maggy IrvingBasophils/100 WBC (Bld)0.2 %Normal0.2-2.0[facility] Comment on above:Performed By: #### LIPID, T4, TSH, FT3, CMP #### [facility] [address] [place] [address] Dr. Maggy Zurita #0.2 103/ulNormal0.0-0.7The [facility] NorthComment on above: Performed By: #### LIPID, T4, TSH, FT3, CMP #### [facility] [address] [place] [address] Dr. Maggy Andradeosinophils/100 WBC (Bld)3.1 %Normal0.9-7.0The [facility] Comment on above:Performed By: #### LIPID, T4, TSH, FT3, CMP #### [facility] [address] [place] [address] Dr. Maggy Andraderythrocyte distribution width (RBC) [Ratio]12.3 %Voiafs55.0-15.0 The [facility] NorthComment on above:Performed By: #### LIPID, T4, TSH, FT3, CMP #### [facility] [address] [place] [address] Dr. Maggy IrvingHematocrit (Bld) [Volume fraction]41.6 %Critically low42.0-54.0 The [facility] NorthComment on above:Performed By: #### LIPID, T4, TSH, FT3, CMP #### [facility] [address] [place] [address] Dr. Maggy IrvingHemoglobin (Bld) [Mass/Vol]14.6 g/mJJxhbmk08.0-18.0The [facility] NorthComment on above:Performed By: #### LIPID, T4, TSH, FT3, CMP #### [facility] [address] [place] [address] Dr. Maggy Cyr #0.02 10e3/ulNormal0.00-0.03The [facility] NorthComment on above:Performed By: #### LIPID, T4, TSH, FT3, CMP #### [facility] [address] [place] [address] Dr. Maggy Cyr %0.4 %Normal0.0-0.5The [facility] NorthComment on above: Performed By: #### LIPID, T4, TSH, FT3, CMP #### [facility] [address] [place] [address] Dr. Maggy Ordaz #0.9 103/ulCritically low1.2-3.8The [facility] Comment on above:Performed By: #### LIPID, T4, TSH, FT3, CMP #### [facility] [address] [place] [address] Dr. Maggy Heltonhocytes/100 WBC (Bld)17.9 %Critically low20.5-60.0The [facility] NorthComment on above:Performed By: #### LIPID, T4, TSH, FT3, CMP #### [facility] [address] [place] [address] Dr. Maggy Prajapati DIFF REQNONormalThe [facility] NorthComment on above: Performed By: #### LIPID, T4, TSH, FT3, CMP #### [facility] [address] [place] [address] Dr. Maggy IrvignKALEIDA HEALTH (RBC) [Entitic mass]31.1 rjWinhku83.9-34.0The [facility] HospitalComment on above:Performed By: #### LIPID, T4, TSH, FT3, CMP #### [facility] [address] [place] [address] Dr. Maggy IrvingST[facility] (RBC) [Mass/Vol]35.1 g/bXFtsjqn48.9-35.2The [facility] NorthComment on above:Performed By: #### LIPID, T4, TSH, FT3, CMP #### [facility] [address] [place] [address] Dr. Maggy Cunningham (RBC) [Entitic vol]88.5 lEAvkwvx34.0-94.0The [facility] NorthComment on above:Performed By: #### LIPID, T4, TSH, FT3, CMP #### [facility] [address] [place] [address] Dr. Maggy Pablo #0.4 103/ulNormal0.3-0.8The [facility] NorthComment on above:Performed By: #### LIPID, T4, TSH, FT3, CMP #### [facility] [address] [place] [address] Dr. Maggy Batesocytes/100 WBC (Bld)8.7 %Normal1.7-12.0The [facility] Comment on above:Performed By: #### LIPID, T4, TSH, FT3, CMP #### [facility] [address] [place] [address] Dr. Maggy Huffman #3.4 103/ulNormal1.4-6.5The [facility] NorthComment on above:Performed By: #### LIPID, T4, TSH, FT3, CMP #### [facility] [address] [place] [address] Dr. Maggy Alejandraophils/100 WBC (Bld)69.7 %Uphqyb87.0-75.0The [facility] Centerment on above:Performed By: #### LIPID, T4, TSH, FT3, CMP #### [facility] [address] [address] [address] Maggy IrvingPlatelet mean volume (Bld) [Entitic vol]9.9 fLNormal9.5-13.5The [facility] NorthComment on above:Performed By: #### LIPID, T4, TSH, FT3, CMP #### [facility] [address] [place] [address] Dr. Maggy IrvingPLT121 103/ulCritically bps319-958Vor [facility] NorthComun[facility] of [facility] on above:Performed By: #### LIPID, T4, TSH, FT3, CMP #### [facility] [address] [place] [address] Dr. Maggy IrvingRBC4.70 106/ulNormal4.70-6.10The [facility] NorthComun[facility] on above:Performed By: #### LIPID, T4, TSH, FT3, CMP #### [facility] [address] [place] [address] Dr. Maggy IrvingWBC4.8 103/ulNormal4.0-11.0The [facility] on above: Performed By: #### LIPID, T4, TSH, FT3, CMP #### [facility] [address] [place] [address] Dr. Maggy IrvingFRAME T3on [id number] T33.15 pg/mlLNormal2.18-3.98The [facility] on above:Performed By: #### LIPID, T4, TSH, FT3, CMP #### [facility] [address] [place] [address] Dr. Maggy IrvingGLYCOHEMOGLOBIN A1Con [id number] RECOMMENDATIONSEE BELOWNormal The [facility] NorthComment on above:Result Comment: ADA RECOMMENDED LIMIT 4.0 - 6.0 ADA THERAPEUTIC TARGET < 7.0 ACTION SUGGESTED > 7.0Performed By: #### LIPID, T4, TSH, FT3, CMP #### [facility] [address] [address] [address] Maggy IrvingGlucose [Mass/Vol]123 mg/dLNoAvita Health System Bucyrus HospitalComment on above:Performed By: #### LIPID, T4, TSH, FT3, CMP #### [facility] [address] [place] [address] Dr. Maggy IrvingHbA1c (Bld) [Mass fraction]5.9 %Normal4.5-6.2The [facility] NorthComment on above:Performed By: #### LIPID, T4, TSH, FT3, CMP #### [facility] [address] [place] [address] Dr. Maggy PittsID PROFILEon [id number]-HDL RATIO NORMSEE [facility] Medical CenterComment on above:Result Comment: 3.3 - 4.4 LOW RISK 4.4 - 7.1 AVERAGE RISK 7.1 - 11.0 MODERATE RISK >11.0 HIGH RISKPerformed By: #### LIPID, T4, TSH, FT3, CMP #### [facility] [address] [place] [address] Dr. Maggy Bangesterol [Mass/Vol]174 mg/dLNormal<=200The [facility] Comment on above:Performed By: #### LIPID, T4, TSH, FT3, CMP #### [facility] [address] [place] [address] Dr. Maggy Bangesterol in HDL [Mass/Vol]36 mg/dLCritically aod38-07Bql [facility] NorthComment on above:Performed By: #### LIPID, T4, TSH, FT3, CMP #### [facility] [address] [place] [address] Dr. Maggy Bangesterol in LDL [Mass/Vol]114.4 mg/dLNoAvita Health System Bucyrus HospitalComment on above:Performed By: #### LIPID, T4, TSH, FT3, CMP #### [facility] [address] [place] [address] Dr. Maggy IrvingCholesterol.total/Cholesterol in HDL [Mass ratio]4.8 {ratio} NormalThe [facility] NorthComment on above:Performed By: #### LIPID, T4, TSH, FT3, CMP #### [facility] [address] [address] [address] Maggy Garcia NORMAL> or = 60 mg/dl - LOW CARDIOVASCULAR RISK <40 mg/dl - HIGH CARDIOVASCULAR RISKNoAvita Health System Bucyrus HospitalComment on above:Performed By: #### LIPID, T4, TSH, FT3, CMP #### [facility] [address] [address] [address] Maggy IrvingLDL CALC NORMALSEE BELOWNoAvita Health System Bucyrus HospitalComment on above:Result Comment: <100 mg/dl OPTIMAL 100 - 129 mg/dl NEAR OR ABOVE OPTIMAL 130 - 159 mg/dl BORDERLINE HIGH 160 - 189 mg/dl HIGH >190 mg/dl VERY HIGH Performed By: #### LIPID, T4, TSH, FT3, CMP #### [facility] [address] [address] [address] Maggy IrvingTriglyceride [Mass/Vol]118 mg/dLNormal<=150The [facility] Comment on above:Performed By: #### LIPID, T4, TSH, FT3, CMP #### [facility] [address] [place] [address] Dr. Maggy IrvingVLDL CALC23.6 mg/dLNoAvita Health System Bucyrus HospitalComment on above: Performed By: #### LIPID, T4, TSH, FT3, CMP #### [facility] [address] [place] [address] Dr. Maggy IrvingOCC BLD IMMUNO SCREENon [id number] BLOODNegativeNormal NEGATIVEThe [facility] NorthComun[facility] of [facility] on above:Performed By: #### OBSCRN #### [facility] [address] [place] [address] Dr. Maggy IrvingPROF 14(COMP METB)on [id number] [Mass/Vol]3.6 g/dLNormal 3.4-5.0The [facility]any HospitalComment on above:Performed By: #### LIPID, T4, TSH, FT3, CMP #### [facility] [address] [place] [address] Dr. Maggy IrvingAlbumin/Globulin [Mass ratio]1.1 {ratio}NormalThe St. [facility] Centerment on above:Performed By: #### LIPID, T4, TSH, FT3, CMP #### [facility] [address] [place] [address] Dr. Maggy Cutler [Catalytic activity/Vol]47 U/PHbboxz80-170Fag [facility] on above:Performed By: #### LIPID, T4, TSH, FT3, CMP #### [facility] [address] [place] [address] Dr. Maggy Cloud [Catalytic activity/Vol]31 U/WRdetci90-86Xul [facility] NorthComment on above:Performed By: #### LIPID, T4, TSH, FT3, CMP #### [facility] [address] [place] [address] Dr. Maggy Alarcon gap [Moles/Vol]10.2 mmol/LNormalThe [facility] Comment on above:Performed By: #### LIPID, T4, TSH, FT3, CMP #### [facility] [address] [place] [address] Dr. Maggy Martinez [Catalytic activity/Vol]17 U/WIgdoim17-54Irx [facility] on above:Performed By: #### LIPID, T4, TSH, FT3, CMP #### [facility] [address] [place] [address] Dr. Maggy IrvingBilirubin [Mass/Vol]0.6 mg/dLNormal0.2-1.0The [facility] Comment on above:Performed By: #### LIPID, T4, TSH, FT3, CMP #### [facility] [address] [place] [address] Dr. Maggy IrvingCalcium [Mass/Vol]8.1 mg/dLCritically low8.5-10.1The [facility] NorthComment on above:Performed By: #### LIPID, T4, TSH, FT3, CMP #### [facility] [address] [address] [address] Maggy IrvingChloride [Moles/Vol]105 mmol/KDylqkc74-385Oeb [facility] Comment on above:Performed By: #### LIPID, T4, TSH, FT3, CMP #### [facility] [address] [place] [address] Dr. Maggy IrvingCO2 [Moles/Vol]29.6 mmol/AFcjdye30.0-32.0The [facility] Comment on above:Performed By: #### LIPID, T4, TSH, FT3, CMP #### [facility] [address] [place] [address] Dr. Maggy IrvingCreatinine [Mass/Vol]0.89 mg/dLNormal0.70-1.30The [facility] NorthComment on above:Performed By: #### LIPID, T4, TSH, FT3, CMP #### [facility] [address] [place] [address] Dr. Maggy AndradeGFR-AF DANISH>60Normal>=60The [facility] NorthComment on above:Performed By: #### LIPID, T4, TSH, FT3, CMP #### [facility] [address] [place] [address] Dr. Maggy Carlson-NON AF DANISH>60Normal>=60The [facility] NorthComment on above:Performed By: #### LIPID, T4, TSH, FT3, CMP #### [facility] [address] [place] [address] Dr. Maggy IrvingGlobulin (S) [Mass/Vol]3.2 g/dLNormalThe [facility] NorthComment on above:Performed By: #### LIPID, T4, TSH, FT3, CMP #### [facility] [address] [place] [address] Dr. Maggy IrvingGlucose [Mass/Vol]110 mg/dLCritically ogcp19-207Iui [facility] NorthComment on above:Performed By: #### LIPID, T4, TSH, FT3, CMP #### [facility] [address] [address] [address] Maggy IrvingPotassium [Moles/Vol]3.8 mmol/LNormal3.5-5.1The [facility] Comment on above:Performed By: #### LIPID, T4, TSH, FT3, CMP #### [facility] [address] [place] [address] Dr. Maggy IrvingProtein [Mass/Vol]6.8 g/dLNormal6.4-8.2The [facility] Comment on above:Performed By: #### LIPID, T4, TSH, FT3, CMP #### [facility] [address] [place] [address] Dr. Maggy IrvingSodium [Moles/Vol]141 mmol/AGpaukm805-187Sxe [facility] Comment on above:Performed By: #### LIPID, T4, TSH, FT3, CMP #### [facility] [address] [place] [address] Dr. Maggy IrvingUrea nitrogen [Mass/Vol]17.0 mg/dLNormal7.0-18.0The [facility] NorthComment on above:Performed By: #### LIPID, T4, TSH, FT3, CMP #### [facility] [address] [place] [address] Dr. Maggy Carlos nitrogen/Creatinine [Mass ratio]19.1 mg/mgNormalThe [facility] NorthComment on above:Performed By: #### LIPID, T4, TSH, FT3, CMP #### [facility] [address] [place] [address] Dr. Maggy Polanco [id number] [Mass/Vol]7.90 ug/dLNormal4.50-12.10The [facility] NorthComment on above:Performed By: #### LIPID, T4, TSH, FT3, CMP #### [facility] [address] [place] [address] Dr. Maggy Pope [id number] uIU/mLCritically high0.358-3.740The [facility] NorthComment on above:Performed By: #### LIPID, T4, TSH, FT3, CMP #### [facility] [address] [address] [address] Maggy Irving Vital Signs Date TimeVital SignValuePerforming [id number] 09:43-0400Body aqzqzc566.8 cmSt. [facility]07-[facility]-2024 09:43-0400Body mass index (BMI) [Ratio]34.4 kg/q1JyszifddsSt. Anthony'S Hospital07-19-2024 09:43-0400Body uhyqxjdpthi01.3 [degF][facility]07-19-2024 09:43-0400Body pavwel717.08 kgSt. [facility] Hospital07-19-2024 09:43-0400Diastolic blood owykhoul64 mm[Hg][facility] 04-06-2024 09:43-0400Heart rate87 /[facility] 04-06-2024 09:43-0400Respiratory rate18 /[facility] 04-06-2024 09:43-5240XxD9% (BldA) [Mass fraction]96 %[facility]07-19-2024 09:43-0400Systolic blood lbwnekrx377 mm[Hg][facility] Encounters Encounter DateEncounter TypeCare ProviderFacilityStart: 06-04-2025 End: 66-37-3081bbqysdnnvsPkjghxx R NILLFacility: evtart: 06-04-2025 End: 68-95-0195Nqstqgv encounter procedureMichael R NILL [phone]-KnrzjOhiohealth Grove [facility] [place] Start: 63-34-0363ljkocwkvwdLmizmsj NILLFacility: QuocueStart: 04-27-2024 End: 64-60-3558opbadbeiwcOrrmhio M [facility] Work Phone: Start: 04-27-2024 End: 26-78-7937Dqrflcvd ReferredMD Marcella Gross Work Phone: [facility] Path Spec [place] HospStart: 04-06-2024 End: 35-53-1453gffnngbhheNvklmoimxMer[facility] Work Phone: Start: 04-06-2024 End: 74-81-2663Tbudshs encounter procedureCone Health [facility]tiaz Work Phone: Start: 02-10-2023 End: 17-85-3392ojwyqgnfadIUIFE D St[facility] Centercility:S7Cdeec: 02-07-2023 End: 63-83-1977yylrwxzzajREWEP D [facility] CENTERFacility:K7Gkqer: 48-68-4781Kwclybgbt for preprocedural laboratory examinationPETER D [facility] Start: 01-31-2023 End: 65-27-9471pvajtfcvhaII MARCELLA HOY .Facility:H2Lfewf: 01-31-2023 End: 50-12-6671Kxafxfypm for preprocedural laboratory examinationDR MARCELLA HOY .Facility:T3Lhuxe: 01-25-2023 End: 18-83-8485nhulwexrcaZO MARCELLA HOY .Facility:B3Trslx: 01-07-2023 End: 57-71-4655rvrhlxryohST MARCELLA HOY .Facility:D5Lonum: 01-03-2023 End: 44-46-6238juggjvwraxXR MARCELLA HOY .Facility:L1Svyqm: 12-28-2022 End: 86-85-8068dstfobfozgOF MARCELLA HOY .Facility:I5Kvecr: 12-21-2022 End: 26-81-0913refgyargmtQH MARCELLA HOY .Facility:Q1Sjvkb: 12-07-2022 End: 30-15-7699lnpnhktgyfWK MARCELLA HOY .Facility:G9Mjlll: 06-50-6368ywqeoaylaw PETER D [facility] Centercility:H1Xftzx: 04-09-2022 End: 69-20-1093htbbrxrvkuRZ MARCELLA HOY .Facility:H1 Procedures DateProcedureProcedure DetailPerforming ClinicianStart: 03-59-9883CRN screening DR MARCELLA GROSS .Comment on above:Performed By: #### LIPID, T4, TSH, FT3, CMP #### [facility] [address] [place] [address] Dr. Maggy IrvingAmputation of fifth toeMichael NILL Repair of inguinal herniaMichael NILL Immunizations Immunization DateImmunizationNotesCare QflficvqZpooauda41-83-0866JYLJ-WaC-3 (COVID-19) mRNA-1273 vaccineMichael NILL [phone]-RihhaCity Hospital 73-58-5429TGCS-CoV-2 (COVID-19) Ad26 vaccine, recombinantMichael NILL [phone]-HlexfCity Hospital Comment on above:Result Comment: 2025-05-15: [id number] Payers DatePayer CategoryPayerPolicy [id number] [id number] Health Insurance [id number]-pay1960Medicare [id number] 2..1.091935.3.57[id number] 2..1.811749.3.57[id number] 2..1.282944.3.57[id number] 2..1.889294.3.57[id number] 2..1.340659.3.57[id number] 2.0.1.727454.3.57[id number] 2.0.1.933377.3.57[id number] 2.0.1.742976.3.57[id number] 2.0.1.254015.3.57[id number] 2.0.1.546690.3.57[id number] 2.0.1.693765.3.57[id number] 2..1.087299.3.5[id number] 2..1.595028.3.579.2.531 Social History DateTypeDetailFacilityTobacco smoking status NHISUnknown if ever smokedChillicothe Hospital Work Phone: Start: 18-75-3195Rhs Assigned At [facility] Hospitaltart: 06-26-1373Arucsdc smoking statusNever smoked tobacco (finding)[facility] Surgery BellueTobacco smoking statusNeverOhiohealth [facility] General Surgery [place]vueSexual OrientationOhiohealth Grove [facility] General Surgery [place] Sex Assigned At [facility] SexMale (finding)[facility] Clinical Note 06-04-2025 Note Date & WjvnZrekQmgvmhmi15-95-3671 NoteGeneral Surgery Office/Clinic Note Chief Complaint consultation [...] male with h/o htn, hyperlipidemia, neuropathy, hypothyroidism, Ryqefxw-Whrwg-Aqece disease, referred for positive fecal occult blood [...] Problem List/Past Medical History Ongoing BMI 35.0-35.9,adult Llxmlps-Xugha-Aqxis disease Chronic ulcer of left heel Class [...] SARS-CoV-2 (COVID-19) Ad26 vaccine 12/26/2020 Recorded 2025-05-15: KAY31Vysifo Kennedy Krieger InstituteComment on above:Result Comment: Electronically Signed By: SHANTELL MUÑOZ, Chirag Armando\Date and Time Signed: 06/04/25 15:00 EDT Clinical Note 02-07-2023 Note Date & OoupUmotDkcfcyeb55-10-5392 NotePROCEDURE: XR FOOT RT MIN 3 VIEWS [...] Electronically authenticated by: OLVIN KHANNA Date: 2023-02-07 09:41[facility] Evaluation + Plan note Note Date & TypeNoteFacilityEvaluation + Plan note No data available for this section [facility] Surgery [place] Evaluation note Note Date & TypeNoteFacilityEvaluation note* Diagnosis Onset Date Resolution Status Bacterial conjunctivitis of right eye [facility] Work Phone: Hospital Discharge instructions Note Date & TypeNoteFacilityHospital Discharge instructions No data available for this section [facility] Progress note Note Date & TypeNoteFacilityProgress note No data available for this section [facility] Summary Purpose Family History No Family History [...] and content) DATE CREATED AUTHOR 02/25/2023 [facility] DATE CREATED AUTHOR AUTHOR'S ORGANIZ ATION 05/02/2024 [facility] DATE CREATED AUTHOR AUTHOR'S ORGANIZ ATION 06/05/2025 [facility] Care Teams (unrecognized sec tion and [...] BE BASED ON THE PRIMARY CLINICAL RECORDS. [facility]. provides no warranty or guarantee of the accuracy or completeness of information in this document.
--- OUTSIDE RECORDS SUMMARY | 2025-07-10 06:09 | XMS_ITS | Clinical Summary ---
Author Organization [facility] Healthcare Address [address] [place] [address] Care Team Providers Care Recovery Advocate Name Role Phone Unavailable Primary Care Provider Unavailabl e Social History Tobacco UseTypesPacks/DayYears UsedDateSmoking Tobacco: Never AssessedSex and Gender InformationValueDate RecordedSex Assigned at BirthNot on fileLegal Sex Male12/01/2022 6:47 PM EDTGender IdentityNot on fileSexual OrientationNot on file Last Filed Vital Signs Vital SignReadingTime TakenCommentsBlood Pressure--Pulse--Temperature-- Respiratory Rate--Oxygen Saturation--Inhaled Oxygen Concentration--Mlglog974 kg (229 lb)09/29/2022 12:00 PM IRDIfzjoq258.8 cm (5' 10 )09/29/2022 12:00 PM EST Body Mass Index32.8609/29/2022 12:00 PM EST Plan of Treatment Not on file Insurance
--- OUTSIDE RECORDS SUMMARY | 2025-07-10 06:10 | XMS_ITS | Patient Health Record ---
Author Organization [facility] Address [address] [place] [address] Care Team Providers Care Environmental Engineering Technician Name Role Phone Brock Gross Primary Care Provider Olvin Morgan [facility] [phone] Reason For Referral No Information Medications Medication SIG (Take, Route, Frequency, Duration) Notes Start Date End Date Status levothyroxine ActivedoxazosinActiveMobic 15 mg1 tab(s) orally once a day for 42 days05/28/2024 Active Social History Tobacco Use: Social History Observation Description Date Details (start date - stop date) Never Smoker NA - NA AUDIT-C (Standard) Question Answer Notes Did you have a drink containing alcohol in the p ast year? No Huvtxf3UptzfuatifjjiwGwrnqryuXuljvln Control (Standard) Question Answer Notes Tobacco use: Nonsmoker Plan Of Treatment Pending Test Test Name Order Date SCC- HAND 3 VIEW RIGHT [id number] 05/28/2024 Insurance Providers Payer Name Payer Address Payer Phone Subscriber Number Group Number Insured Name Patient Relationship to Insured Coverage Start Date Coverage End Date [place] [address] [place] [place] [address] [id number] ARMANDO MARVINelf - patient is the insuredPike Community Hospitalcal [facility] WaynePO [address] [place] [id number], PHILIPSelf - patient is the insured
--- OUTSIDE RECORDS SUMMARY | 2025-07-10 06:10 | XMS_ITS | Patient Health Record ---
Author Organization [facility] in [place] Address [address] [place] [address] Care Team Providers Care Radiology Equipment Servicer Name Role Phone Quinn Salamanca Primary Care Provider Allergies No Known Allergies Results Component Value Reference Range Notes CBC AUTO DIFF Reviewed date:05/06/2025 01:12:23 PM Interpretation: Performing Lab: Notes/Report: [facility] , White Blood Count 5.2 4.0-11.0 10 3/uL Red Blood Count4.614.70-6.10 10 6/lZNtjzvmxgzu70.614.0-18.0 g/yGTjrhdtlgez02.9 42.0-54.0 %Mean Corpuscular Pxkvzq27.780.0-94.0 fLMean Corpuscular Hemoglobin 31.725.9-34.0 pgMean Corpuscular HGB Conc35.729.9-35.2 g/dLRed Cell Distribution Width12.311.0-15.0 %Platelet Ntihs141766-354 10 3/uLMean Platelet Titycb63.09.5- 13.5 fLNeutrophils Percent Auto73.743.0-75.0 %Lymphocytes Percent Auto18.120.5- 60.0 %Monocytes Percent Auto6.41.7-12.0 %Eosinophils Percent Auto1.20.9-7.0 % Basophils Percent Auto0.20.2-2.0 %Immature Granulocytes Pct Auto0.40.0-0.5 % Neutrophils Absolute Auto3.81.4-6.5 10 3/uLLymphocytes Absolute Auto0.91.2-3.8 10 3/uLMonocytes Absolute Auto0.30.3-0.8 10 3/uLEosinophils Absolute Auto0.10.0- 0.7 10 3/uLBasophils Absolute Auto0.00.0-0.1 10 3/uLImmature Granulocytes Abs Auto0.020.00-0.03 10 3/uLPerforming Lab:see noteML - [facility] LBXR foot RT min 3V Reviewed date:05/22/2025 11:09:08 AM Interpretation: Performing Lab: Notes/Report: Source Facility: [facility]-[address] [place] [address] XRay Report Signed Patient: SILVINO OJEDA MR#: [id number] : 1950 Acct:[id number] Age/Sex: 75 / M ADM Date: 05/21/25 Loc: [facility] Attending Dr: Noelle ROLLE Ordering Physician: Noelle Paiz Date of Service: 05/21/25 Procedure(s): XR foot RT min 3V Accession Number(s): [id number] cc: Marcella Salamanca M.D.; Noelle Paiz [place] [id number] Patient Name: SILVINO OJEDA MRN: [id number] date: 1950 Sex: M Assigned Patient Location: [facility] Current Patient Location: Accession/Order Number: [id number] Exam Date: 05/21/2025 09:44 Report Date: 05/21/2025 [...] Mistry M.D. 05/21/2025 10:10 AM Dictation Location: [place] [address] Electronically authenticated by: [id number] Y Date: 05/21/2025 10:10 Dictated By: Jamilah Mistry M.D. Signed By: 05/21/25 1013 DD/ 1010 TD/TT: Vat Operator:CBC AUTO DIFF Reviewed date:05/24/2025 12:57:28 PM Interpretation: Performing Lab: Notes/Report: [facility] ,White Blood Count4.14.0-11.0 10 3/uLRed Blood Count4.594.70-6.10 10 6/uL Smxlikbqmf29.514.0-18.0 g/uSEuhgnpgsem59.642.0-54.0 %Mean Corpuscular Aqdorv20.3 80.0-94.0 fLMean Corpuscular Pbgrovejhz04.625.9-34.0 pgMean Corpuscular HGB Conc 36.629.9-35.2 g/dLRed Cell Distribution Width12.211.0-15.0 %Platelet Pjjea598 150-450 10 3/uLMean Platelet Ovgbvj08.49.5-13.5 fLNeutrophils Percent Auto61.1 43.0-75.0 %Lymphocytes Percent Auto24.820.5-60.0 %Monocytes Percent Auto9.01.7- 12.0 %Eosinophils Percent Auto3.60.9-7.0 %Basophils Percent Auto0.50.2-2.0 % Immature Granulocytes Pct Auto1.00.0-0.5 %Neutrophils Absolute Auto2.51.4-6.5 10 3/uLLymphocytes Absolute Auto1.01.2-3.8 10 3/uLMonocytes Absolute Auto0.40.3-0.8 10 3/uLEosinophils Absolute Auto0.20.0-0.7 10 3/uLBasophils Absolute Auto0.00.0- 0.1 10 3/uLImmature Granulocytes Abs Auto0.040.00-0.03 10 3/uLPerforming Lab:see note - [facility] LBOccult Blood* Reviewed date:05/06/2025 01:56:05 PM Interpretation: Performing Lab: Notes/Report: [facility] ,Occult BloodPositivePerforming Lab:see [facility] LB Testosterone Reviewed date:05/07/2025 03:31:36 PM Interpretation: Performing Lab: Notes/Report: [facility] ,Shipmvrkxwah956915-681 ng/dL Adult male reference interval is based on a population of healthy nonobese males (BMI <30) between 19 and 39 years old. dave Jacobs.al. JCEM 2017,102;0133-6166. PMID: 26278870. Performed at: [address] [id number] Embroidery Assistant: Luis Ruby PhD, Phone: [phone] Performing Lab:see [facility] LBINSULIN Reviewed date:05/07/2025 03:31:36 PM Interpretation: Performing Lab: Notes/Report: [facility] ,Plmkpkx32.52.6-24.9 uIU/mL Performed at: [address] [id number] Embroidery Assistant: Lius Ruby PhD, Phone: [phone] Performing Lab:see [facility] LBUS abdomen complete Reviewed date:05/14/2025 04:06:22 PM Interpretation: Performing Lab: Notes/Report: Source Facility: [place] [address] [place] [address] Ultrasound Report Signed Patient: SILVINO OJEDA MR#: [id number] : 1950 Acct:[id number] Age/Sex: 75 / M ADM Date: 05/14/25 Loc: [place] Attending Dr: Marcella Salamanca M.D. Ordering Physician: Marcella Salamanca M.D. Date of Service: 05/14/25 Procedure(s): US abdomen complete Accession Number(s): [id number] cc: Marcella Salamanca M.D. [place] [address] Patient Name: SILVINO OJEDA MRN: [id number] date: 1950 Sex: M Assigned Patient Location: [place] Current Patient Location: [place] Accession/Order Number: [id number] Exam Date: 05/14/2025 07:02 Report Date: 05/14/2025 [...] Mistry M.D. 05/14/2025 9:39 AM Dictation Location: [place] [address] Electronically authenticated by: [id number] Y Date: 05/14/2025 09:39 Dictated By: Jamilah Mistry M.D. Signed By: 05/14/25 0942 DD/ TD/TT: Vat Operator:URIC ACID SERUM Reviewed date:05/06/2025 01:12:23 PM Interpretation: Performing Lab: Notes/Report: [facility] ,Uric Acid6.03.5-7.2 mg/dLPerforming Lab:see noteML - [facility] LB TSH Reviewed date:05/06/2025 01:12:23 PM Interpretation: Performing Lab: Notes/Report: [facility] ,Thyroid Stimulating Hormone2.5370.358-3.740 uIU/mLPerforming Lab:see noteML - [facility] LBT4 Reviewed date:05/06/2025 01:12:23 PM Interpretation: Performing Lab: Notes/Report: [facility] ,T4 Uxxwcvqpw32.604.50-12.10 ug/dLPerforming Lab:see noteML - [facility] LBPSA SCREENING Reviewed date:05/06/2025 01:12:23 PM Interpretation: Performing Lab: Notes/Report: [facility] ,Prostate Specific Antigen Scrn2.21<=4.00 ng/mLPerforming Lab:see note - [facility] LBPROF 14(COMP METB) Reviewed date:05/06/2025 01:12:23 PM Interpretation: Performing Lab: Notes/Report: [facility] ,Tctngp427542-381 mmol/LPotassium4.23.5-5.1 mmol/XUoywscvd14125-335 mmol/LCarbon Ykmkcao30.321.0-32.0 mmol/LAnion Gap7.1Jlbepdi57414-817 mg/dLBlood Urea Nitrogen 15.07.0-18.0 mg/dLCreatinine0.730.70-1.30 mg/dLEstimated GFR ( Nery>60 >=60 mL/min/1.73m 2Estimated GFR (Non- Kristen>60>=60 mL/min/1.73m 2BUN Creatinine Ratio20.0Grxxvim0.88.5-10.1 mg/dLBilirubin Total0.70.2-1.0 mg/dL Aspartate Amino Ckkshxeeink3522-01 U/LAlanine Mehzhwwlvcxytkon46895-89 U/L Alkaline Dhrfdtryybf6198-610 U/LTotal Protein7.86.4-8.2 g/dLAlbumin Level4.03.4- 5.0 g/dLGlobulin3.8Albumin Globulin Ratio1.1Performing Lab:see noteML - [facility] LBLIPID PROFILE Reviewed date:05/06/2025 01:12:23 PM Interpretation: Performing Lab: Notes/Report: [facility] ,Esvbyqidtzjdo456<=150 mg/oOGqjbhpoovsg168<=200 mg/dLHDL Guzdaibktqu9160-24 mg/dL > or =60 mg/dl - LOW CARDIOVASCULAR RISK <40 mg/dl - HIGH CARDIOVASCULAR RISK LDL Cholesterol Afiqlbaycb042.0 <100 mg/dl OPTIMAL 100-129 mg/dl NEAR OR ABOVE OPTIMAL 130-159 mg/dl BORDERLINE HIGH 160-189 mg/dl HIGH >190 mg/dl VERY HIGH VLDL UXBTWODPXNV81.6Chol HDL Ratio5.1 3.3 - 4.4 LOW RISK 4.4 - 7.1 AVERAGE RISK 7.1 - 11.0 MODERATE RISK >11.0 HIGH RISK Performing Lab:see note - [facility] LBGLYCOHEMOGLOBIN A1C Reviewed date:05/06/2025 01:12:23 PM Interpretation: Performing Lab: Notes/Report: [facility] ,Glycohemoglobin A1C5.74.5-6.2 % ADA RECOMMENDED LIMIT 4.0 - 6.0 ADA THERAPEUTIC TARGET < 7.0 ACTION SUGGESTED > 7.0 Estimated Average Rmvefmo626Uyjzfxxpzq Lab:see note - [facility] FREE T3 Reviewed date:05/06/2025 01:12:23 PM Interpretation: Performing Lab: Notes/Report: [facility] ,Free T32.582.18-3.98 pg/mLPerforming Lab:see On license of [facility] LB Reason For Referral Diagnosis 1 Anemia (D64.9) Diagnosis 2 Occult blood positiv e stool (R19.5) Referral Organization [facility] Referring Provider First Name Quinn Referring [...] Orally Once a day; Duration: 90 days ActiveFerrous Sulfate 325 (65 Fe) MG1 tablet Orally twice daily; Duration: 30 days5ActiveDoxazosin Mesylate 4 MGtake 1 tablet by mouth once daily Orally Once a day; Duration: 90 daysActiveAspirin 325 MG2 tablet Orally Once a dayActive Social History Tobacco Use: Social History Observation Description Date Details (start date - stop date) Never Smoker NA - NA Tobacco Use/Smoking Question Answer Notes Patient is a nonsmoker Alcohol Screen (Audit-C) Question Answer Notes Did you have a drink containing alcohol in the p ast year? No Pzmfcr8OxnyefbcetzntxAmbyupjwMHPVQ-O (Standard) Question Answer Notes Did you have a drink containing alcohol in the p ast year? No Engcrt3AboxhswyobpilwIomwbmkl Problems Problem Type SNOMED Code ICD Code Onset Dates Problem Status W/U Status Risk Notes Problem Tinea cruris (027375737) Tinea cruris (B3 5.6) ActiveconfirmedProblemThyrotoxicosis (90056559)Thyrotoxicosis, unspecified without thyrotoxic crisis or storm (E05.90)ActiveconfirmedProblemChronic ulcer of foot (141164393)Non-pressure chronic ulcer of left heel and midfoot with fat layer exposed (L97.422)ActiveconfirmedProblemNon-pressure chronic ulcer of other part of right foot limited to breakdown of skin (L97.511)ActiveconfirmedProblem Acquired deformity of right foot (disorder) (971723874)Other acquired deformities of right foot (M21.6X1)Activeconfirmedcavovarus contractureProblem Acquired deformity of left foot (disorder) (020294903)Other acquired deformities of left foot (M21.6X2)Activeconfirmedcavovarus contractureProblemContracture of joint of right ankle (disorder) (461605900019029)Contracture, 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)ActiveconfirmedProblemContracture of joint of left ankle (disorder) (081302837704499)Contracture, left ankle (M24.572)ActiveconfirmedProblem Contracture of joint of left foot (disorder) (729175900916200)Contracture, left foot (M24.575)ActiveconfirmedProblemInstability of joint of right ankle (4902735109656018)Other instability, right ankle (M25.371)ActiveconfirmedProblem Pain of left knee joint (finding) (917974958601691)Pain in left knee (M25.562) ActiveconfirmedProblemClosed fracture of phalanx of foot (34569487)Nondisplaced unspecified fracture of left great toe, initial encounter for closed fracture (S92.405A)ActiveconfirmedProblemHypertension (18994971)HTN (hypertension) (I10) ActiveconfirmedProblemDyspnea on exertion (29229596)Dyspnea on exertion (R06.09) ActiveconfirmedProblemAnemia (242461215)Anemia (D64.9)ActiveconfirmedProblem Neuropathy (690349575)Neuropathy (G62.9)ActiveconfirmedProblemTinnitus (04160032)Tinnitus (H93.19)ActiveconfirmedProblemEdema (291995923)Edema leg (R60.0)ActiveconfirmedProblemHemorrhoids (22809805)Hemorrhoids (K64.9)Active confirmedProblemAbnormal feces (814939641)Occult blood positive stool (R19.5) ActiveconfirmedProblemOverweight (735057312)Over weight (E66.3)Activeconfirmed ProblemGanglion cyst (07861096)Ganglion cyst (M67.40)ActiveconfirmedProblem Erectile dysfunction (disorder) (178414161)Impotence (N52.9)Activeconfirmed ProblemAcquired cavovarus deformity of right foot (8725093992979316)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)ActiveconfirmedProblemLipoma of spermatic cord (85570305)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 Leukocytosis (601490077)Elevated white blood cell count (D72.829)Activeconfirmed ProblemEssential hypertension (31987133)Essential (primary) hypertension (I10) ActiveconfirmedProblemSexual dysfunction (56822832)Sexual dysfunction (R37) ActiveconfirmedProblemInguinal hernia (disorder) (499435425)Hernia, inguinal (K40.90)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)Activeconfirmed ProblemXanthelasma (63683127)Xanthelasma (H02.60)ActiveconfirmedProblemAcquired hammer toe of right foot (4810768403756414)Hammertoe of right foot (M20.41) 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confirmedProblemDecreased testosterone level (602197102)Decreased testosterone level (R79.89)ActiveconfirmedProblemDecubitus ulcer of left foot, stage 1 (L89.891)ActiveconfirmedProblemChronic ulcer of right heel (disorder) (22655067686784048)Chronic ulcer of right heel limited to breakdown of skin (L97.411)ActiveconfirmedProblemUlcer of right foot with necrosis of muscle (L97.513)Activeconfirmed Vital Signs Blood pressure diastolic 86 mm Hg 05/06/2025 Omhxkh89 in05/06/2025lood pressure vsjvtowf800 mm Hg05/06/20251853Wpjved782.8 lbs 05/06/2025BMI35.12 kg/m205/06/2025 Procedures Procedure Date Ordered Date Performed Result Body Sit e Cerumen Removal - performed 05/06/2025 N/A Encounters Encounter Location Date Provider Diagnosis [facility] [address] [place] [address] 05/06/2025 Quinn Hoy Anemia D64.9 and Elevated liver enzymes R74.8 [facility] [address] [place] [address] 05/06/2025 Quinn Hoy Anemia D64.9 and Occult blood positive stool R19.5 [facility] [address] [place] [address] 05/07/2025 Quinn Hoy [facility] [place] [address] [facility] [place] [address]/05/2025Doug HoyElevated white blood cell count D72.829[facility] [place] [address]/ Quinn HoyDyspnea on exertion R06.09[facility] [place] [address]/Doug HoyDyspnea on exertion R06.09[facility] [place] [address]/ Quinn HoyDecreased testosterone level R79.89 ; Essential (primary) hypertension I10 ; Neuropathy G62.9 ; Cerumen impaction H61.20 and Bilateral impacted cerumen H61.23 Assessments Encounter Date Diagnosis (ICD Code) Assessment Notes Treatment Notes Treatment Clinical Notes Section Notes 08/13/2024 Dyspnea on exertion (ICD-10 - R0 6.09) 02/04/2025Dyspnea on exertion (ICD-10 - R06.09)05/06/2025nemia (ICD-10 - D64.9) 05/06/2025Elevated liver enzymes (ICD-10 - R74.8)05/06/2025nemia (ICD-10 - D64.9)05/06/2025Decreased testosterone level (ICD-10 - R79.89)checking level 05/06/2025Essential (primary) hypertension (ICD-10 - I10)not bad today - didnt [facility] med[facility]05/24/2025Elevated white blood cell count (ICD-10 - D72.829)05/06/2025 Neuropathy (ICD-10 - G62.9)stabel no ftjdvqpfei17/18/2025Occult blood positive stool (ICD-10 - R19.5)05/06/2025erumen impaction (ICD-10 - H61.20)05/06/2025 Bilateral impacted cerumen (ICD-10 - H61.23) Plan [...] Provider Name:Quinn Salamanca, 09:15:00 AM, [address] [place], [address], Insurance Providers Payer Name Payer Address Payer Phone Subscriber Number Group Number Insured Name Patient Relationship to Insured Coverage Start Date Coverage End Date [place] [address] [place] [address] [id number] [place] Ojedaelf - patient is the [id number] 2017MMO MEDICARE SU[address]LEMENTPO [address] [place] [id number], PhilipSelf - patient is the [id number] 2017 Medical (General) History Medical History History ICD Code hypertension pyruozmgujsbxsugrhvlarkkPziisby-Nnwxv-Sbxql atrophyCavus deformity of bilateral feetbilateral foot painNon-pressure chronic ulcer of other part of right foot limited to breakdown of skinL97.511Dyspnea on uvmderhvN70.09Edema legR60.0Over llegbfN87.9UntpqnbmyI79.9Pain in left kneeM25.562Decreased testosterone level R79.89Nondisplaced unspecified fracture of left great toe, initial encounter for closed arlapvlxO46.405ATinea rhojuhG89.6Lipoma of spermatic cordD17.6Hernia, azhxjnncF21.51IzclthjaK37.19Sexual mziwdaxgkntU75KarwzdzvwpbV58.9Xanthelasma H02.60Surgical History Surgery Date(Month/Year) Hernia Repair Foot Surgery- Dr. Schneider01/2023
[2025-07-10 06:16] VITALS: BP 146/89; PULSE 95; TEMP 36.2; O2SAT 95; BMI 34.6
[2025-07-10 07:50] VITALS: BP 150/97; PULSE 80; TEMP 36.6; O2SAT 95
[2025-07-10 08:05] VITALS: BP 140/88; PULSE 84; O2SAT 96
[2025-07-10 08:20] VITALS: BP 133/82; PULSE 78; O2SAT 96
== END 2025-07-10 08:20 | disposition home or self-care (01) ==
PROVIDERS: PCP Family Medicine; Visit Provider Surgery
PROC: (CPT 45378; principal; 2025-07-10 07:30)
DX: R19.5 Other fecal abnormalities (principal); K57.30 Diverticulosis of large intestine without perforation or abscess without bleeding; I10 Essential (primary) hypertension; E78.5 Hyperlipidemia, unspecified; E03.9 Hypothyroidism, unspecified; G62.9 Polyneuropathy, unspecified; Z89.429 Acquired absence of other toe(s), unspecified side
CPT/HCPCS: 45378; J2704

== ENCOUNTER 2025-07-22 06:37 | Outpatient (OUT) | payer MEDICARE, OTHER, SELFPAY ==
--- OUTSIDE RECORDS SUMMARY | 2024-06-20 04:00 | XMS_ITS ---
Author Organization [facility] in [place] Address [address] [place] [address] Care Team Providers Care Health Equipment Servicer Name Role Phone Renato Quinn Primary Care Provider [phone] Gaudencio Wilson [phone] REASON FOR VISIT 8 week f/u Encounters Encounter Location Date Provider Diagnosis [facility] (PODIATRY) [address] [place] [address] [place] [address] 06/20/2024 Gaudencio Schneider Plan Of Treatment Next Appt Details Provider Name:Quinn Gross, 09:15:00 AM, [address] [place], [address], Progress Notes * Michael OJEDA LDOB:1949 (75 yo M)Acc No.[id number]:06/20/2024 UNLOCKED PROGRESS NOTE Follow Up Patient: Michael HAGER :?Gaudencio Schneider DPM, MSDOB:1950???Age: 74 Y???Sex:MaleDate:4Phone:[phone]:[address] [place] [address], [place], [id number]:Quinn Gross Subjective: * Chief Complaints: * 1 . 8 week f/u. * Medical History: Objective: * Vitals: Assessment: Plan: * Treatment: * * Electronic signature of Gaudencio Schneider DPM on 07/22/2025 at 06:41 AM ESTSign off status: PendingVisit Status:?CANC (Cancelled) * Provider: Helen Schneider DPM, MS Date: 1 Generated for Printing/Faxing/eTransmitting on:?07/22/2025 06:41 AM EST
--- OUTSIDE RECORDS SUMMARY | 2025-07-22 06:40 | XMS_ITS | CCD ---
Author Organization [facility] CliniSyor Care Team Providers Care Bombsight Specialist Name Role Phone CHEIKH ., DR [...] ., DR NARANJO Admitting Unavailable ZIEBER, DR OLIVN Lopez Consulting Unavailable HOY ., DR NARANJO Primary Care Unavailable HIGHLANDER, PETER D Consulting Unavailable HIGHLANDER, PETER D Attending Unavailable HIGHLANDER, PETER D Admitting Unavailable MD Marcella Gross Attending Provider Marcella Gross Attending Unavailable Marcella Gross Admitting Unavailable Marcella Gross Primary Care Physician Chirag STINSON Attending Unavailable Marcella Gross Referring Unavailable Chirag STINSON Attending Unavailable Allergies Allergy ClassificationReported Allergen(s)Allergy TypeDate of OnsetReaction(s) Facility (1 source)No Known Medication Allergies; Translations: [No Known Medication Allergies]Propensity to adverse reactions (disorder)[facility] Repository Medications Current Medications MedicationDrug Class(es)DatesSig (Normalized)Sig (Original)aspirin 325 mg delayed release oral tablet (1 source)Platelet Aggregation Inhibitor, Nonsteroidal Anti-inflammatory Drug Start: 09-26-8276rrct 2 tablets by mouth once dailyaspirin 325 mg Oral EC Tab 650 mg = 2 tab(s), Oral, Daily, Refills(s) 0 Start Date: 05/15/25 Status:Ordered Repeat number: 1doxazosin 4 mg oral tablet (3 sources)alpha-Adrenergic BlockerStart: 96-62-7656xbfb 1 tablet by mouth once dailydoxazosin 4 mg Tab 4 mg = 1 tab(s), Oral, Daily, Refills(s) 0 Start Date: 05/15/25 Status: Ordered Repeat number: 1Start: 24-02-6377Pgmsmmuac Active MG PO April 06, 2024 12:00amferrous sulfate 325 mg oral tablet (1 source)Start: 93-66-1291kqda 1 tablet by mouth twice dailyferrous sulfate 325 mg Tab 325 mg = 1 tab(s), Oral, BID, Refills(s) 0 Start Date: 06/04/25 Status: Or dered Repeat number: 1levothyroxine sodium 0.075 mg oral tablet (3 sources)l-ThyroxineStart: 56-80-4688hdqk 1 tablet by mouth once daily levothyroxine 75 mcg (0.075 mg) Tab 75 mcg = 1 tab(s), Oral, Daily, Refills(s) 0 Start Date: 05/15/25 Status: Ordered Repeat number: 1Start: 04-06-2024 Levothyroxine Active MCG PO April 06, 2024 12:00ammagnesium oxide 500 mg oral tablet (3 sources)Start: 13-27-1960dyqf 1 tablet by mouth once dailymagnesium oxide 500 mg oral tablet 500 mg = 1 tab(s), Oral, Daily, Refills(s) 0 Start Date: 06/04/25 Status: Ordered Repeat number: 1Start: 61-88-5511wvpd 500 mg by mouth once daily Magnesium Oxide Active 500 MG PO Daily April 06, 2024 12:00amofloxacin 3 mg/ml ophthalmic solution (2 sources)Quinolone AntimicrobialStart: 42-64-1740jgem 1 drop(s) into the eye(s) four times dailyOfloxacin Active 2 DROPS OPHTHALMIC Four times daily 10 April 06, 2024 12:00am right eyeoxybutynin chloride 5 mg oral tablet (2 sources)Cholinergic Muscarinic AntagonistStart: 37-68-9323Nyrajbiyvp Chloride Active MG PO April 06, 2024 12:00am Problems Active Problems Problem ClassificationProblemDateDocumented DateEpisodic/ChronicAcquired foot deformities (1 source)Other acquired deformities of right foot; Translations: [OTHER ACQUIRED DEFORMITIES RT FOOT]Onset: 60-61-1540LablwkhyPihmkfa ulcer of skin (5 sources)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 breakdown of skin; Translations: [Non-pressure chronic ulcer of right heel and midfoot with fat layer exposed]Onset: 94-02-9285CwvsgbiDgswflwszkqsn of surgical procedures or medical care (4 sources)Other complications of amputation stump; Translations: [OTH COMPLICATIONS AMPUTATION STUMP]Onset: 79-89-0414TqlsoapaPkcyggmxaf heart failure; nonhypertensive (1 source)Unspecified diastolic (congestive) heart failure; Translations: [UNSPECIFIED DIASTOLIC HEART FAILURE]Onset: 60-68-8993RvvotkpSuybwtooep and other anemia (1 source)Anemia, unspecified; Translations: [ANEMIA UNSPECIFIED]Onset: 10-46-2914KjskzlybQkxqxmkb mellitus with complications (1 source)Type 2 diabetes mellitus with foot ulcer; Translations: [TYPE 2 DM W/FOOT ULCER]Onset: 64-75-9095IktvocjHuaoxvdyz of lipid metabolism (2 sources)Hyperlipidemia, unspecified; Translations: [Hyperlipidemia]Onset: 36-27-901686089743-12-2778PhmmgcdUucoydlro hypertension (2 sources)Essential (primary) hypertension; Translations: [Hypertensive disorder]Onset: 951988-29-5161SearoiyXybdsguxkhwr with complications and secondary hypertension (1 source)Hypertensive heart disease with heart failure; Translations: [HTN HEART DISEASE W/HEART FAIL]Onset: 59-43-9490LfcgkxrZrbjfpjwzcpu; infection of eye (except that caused by tuberculosis or sexually transmitteddisease) (4 sources)Bacterial conjunctivitis; Translations: [Unspecified conjunctivitis] 59-03-8355HbdpvdkwZsugr aftercare (1 source)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; Translations: [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 DRUG THERAPY]Onset: 88-13-6618DqcucowxNqltx endocrine disorders (1 source)Testicular rvpejumopcjd19-58-7602CdxfrfcTskdj gastrointestinal disorders (1 source)Abnormal feces; Translations: [Other fecal abnormalities]Onset: 15-67-9879OhrlcscrJlhvh gastrointestinal disorders (2 sources)Occult blood in azylkf15-31-5361CnjawlemRxofo lower respiratory disease (4 sources)Dyspnea, unspecified; Translations: [DYSPNEA UNSPECIFIED]Onset: 99-10-4648KiighlwnNaxmm lower respiratory disease (4 sources)Other forms of dyspnea; Translations: [OTHER FORMS OF DYSPNEA]Onset: 91-47-3906NwexqcjhSnpuz nervous system disorders (1 source)Polyneuropathy, unspecified; Translations: [POLYNEUROPATHY UNSPECIFIED]Onset: 06-57-3537SjoimkfGjhmh nervous system disorders (1 source)Hereditary motor and sensory jxkkkocfjk51-80-1714HlwagsfZclld nervous system disorders (1 source)Hnewumhzst80-21-2895IllzoyzOcnor nutritional; endocrine; and metabolic disorders (1 source)Body mass index 30+ - akfemlo75-69-3821HhnoygoDjzhf nutritional; endocrine; and metabolic disorders (1 source)Obese class GFV79-16-8060CyxzszxJkwld skin disorders (1 source)Epidermal thickening, unspecified; Translations: [EPIDERMAL THICKENING UNSPECIFIED]Onset: 54-83-4790EjsdspylNdzifvwn codes; unclassified (1 source)Localized edema; Translations: [LOCALIZED EDEMA]Onset: 01-06-2023 EpisodicThyroid disorders (5 sources)Hypothyroidism, unspecified; Translations: [Hypothyroidism]Onset: 55-64-9541HnqqjadDuwltonvdxmn (1 source)Chronic ulcer of left vfju94-39-4664 Past or Other Problems Problem ClassificationProblemDateDocumented DateEpisodic/ChronicMalaise and fatigue (1 source)Other fatigue; Translations: [OTHER FATIGUE]Onset: 01-48-4578Xvjkymeh Other screening for suspected conditions (not mental disorders or infectious disease) (6 sources)Other specified abnormal findings of blood chemistry; Translations: [Encounter for screening for malignant neoplasm of prostate]Onset: 04-09-2022 Episodic Results Test NameValueInterpretationReference RangeFacilityAmbulatory Visit Summaryon 99-08-6191Xzydxkzjsv Visit SummaryAmbulatory Visit Summary SILVINO OJEDA :1950 Visit Date:06/04/2025 Ambulatory Visit Instructions Your Diagnosis Positive fecal occult blood test Your Care Team Attending Physician - Chirag STINSON MD Primary Care Physician - Marcella Gross MD [...] are currently receiving treatment for. BMI 35.0-35.9,adult Oftykse-Etbre-Mdqkd disease Chronic ulcer of left heel Class [...] signed up for this yet, please contact [employer] at [phone] to get signed up today. Language Information Language assistance services are available as needed. [facility] 67-57-8014DJdfzmvfj: [id number] Received: 04/30/24 Status: CASS Moore Num: [id number] Spec Type: Impression Subm Dr: Marcella Gross MD Tissues: PATHPER Procedures: PATHREVIEW Age/ Patient Sex Location Account Attending Physician Silvino Ojeda 74/M [facility] [id number] Marcella Gross MD SPEC NUM: [id number] RECD: 04/30/24 STATUS: CASS MOORE NUM: [id number] KAREN: 04/27/[address]: Marcella Gross MD ENTERED: 04/30/[address] [facility] [address]: SPEC TYPE: Impression DEPT: ALEXSANDRA Cervantes ENTERED BY: [id number] RECV BY: [id number] ORDERED: PATHREVIEW ORDERED: PATHREVIEW Pathologist Review Abnormal [...] shifted granulocytes, or granulocytic dysplasia observed CPT: 91238 Specimen: [id number] Received: 04/30/24 Status: CASS Moore Num: [id number] Spec Type: Impression Subm Dr: Marcella Gross MD Tissues: PATHPER Procedures: PATHREVIEW Patient: Silvino Ojeda [id number] (Continued) Signed (signature on file) Celia Irving MD 04/30/[address] [place] [address] Physician GroupCULTURE OTHERon 05-05-2952VSXITOE OTHER Isolate 1 Staphylococcus aureus Light growth [...] <=0.5 S F Trimethoprim/Sulfamethoxazole <=10 S FNormalThe [facility]lyria Medical CenterComment on above:Performed By: #### LIPID, T4, TSH, FT3, CMP #### [facility] [address] [place] [address] Dr. Maggy MatosNGWANDA CULTUREon 48-15-1959Wnhcwr StainFinal [facility] CenterComment on above:Performed By: #### LIPID, T4, TSH, FT3, CMP #### [facility] [address] [place] [address] Dr. Maggy Hamilton [address] [place], [place] [address]Comment on above:Result Comment: SUDHIR/Calcofluor preparation: no fungus observed.Performed By: #### LIPID, T4, TSH, FT3, CMP #### [facility] [address] [place] [address] Dr. Maggy IrvingACID FAST SMEAR AND CXon 70-94-8635Zlfb Fast SmearNegativeNoNewark HospitalComment on above:Performed By: #### AFB #### [facility] [address] [place] [address] Dr. Maggy Alberts Specimen ProcessingTissuMercy Health – The Jewish Hospital Comment on above:Performed By: #### AFB #### [facility] [address] [place] [address] Dr. Maggy Greenberg ANAEROBICon 35-22-1983JXBCOWW ANAEROBICIsolate 1 Alyceia magna Light growth [facility] on above:Result Comment: EVIDENCE BASED PRACTICE BY [facility] HAS DEMONSTRATED THAT FINEGREGORIOIA SPECIES ARE ROUTINELY SUSCEPTIBLE TO PIPERACILLIN-TAZOBACTAM, CEFOXITIN, ERTAPENEM, IMIPENEM METRONIDAZOLE AND VARIABLY RESISTANT TO CLINDAMYCIN.Performed By: #### LIPID, T4, TSH, FT3, CMP #### [facility] [address] [address] [address] Maggy Potts STAINon 76-95-7278TQRZRNRLLJ ORGANISMS [facility] RehabilitationComs[facility] on above:Performed By: #### GSTAIN #### [facility] [address] [place] [address] Dr. Maggy SolisPHTHEROIDSUniversity Hospitals Par[facility] Medical CenterComsinai-grace hospital on above:Performed By: #### GSTAIN #### [facility] [address] [address] [address] Maggy SpencerLIALSUniversity Hospitals Parma Medical CenterComsinai-grace hospital on above:Performed By: #### GSTAIN #### [facility] [address] [address] [address] Maggy GibsonAL ELEMENTSUniversity Hospitals Parma Medical CenterComsinai-grace hospital on above: Performed By: #### GSTAIN #### [facility] [address] [address] [address] Maggy Potts NEG [facility] CompanyComs[facility] hospital on above: Performed By: #### GSTAIN #### [facility] [address] [place] [address] Dr. Maggy Potts NEG DIPPLOCOCCIUniversity Hospitals Parma Medical CenterComsinai-grace hospital on above: Performed By: #### GSTAIN #### [facility] [address] [place] [address] Dr. Maggy Potts POS BACILLIUniversity Hospitals Parma Medical CenterComsinai-grace hospital on above: Performed By: #### GSTAIN #### [facility] [address] [address] [address] Maggy Potts POSITIVE COCCINoMercy Health Perrysburg HospitalComment on above: Performed By: #### GSTAIN #### [facility] [address] [address] [address] Maggy Potts STAIN IQSFNV3zc Metatarsal BoneUniversity Hospitals Parma Medical Center Comment on above:Performed By: #### GSTAIN #### [facility] [address] [address] [address] Maggy IrvingGS_DIPTHUniversity Hospitals Parma Medical CenterComment on above:Performed By: #### GSTAIN #### [facility] [address] [address] [address] Maggy IrvingWBCRARENormalCincinnati Shriners HospitalComment on above:Performed By: #### GSTAIN #### [facility] [address] [address] [address] Maggy IrvingPOINT OF CARE GLUCOSEon 15-59-9039Wsehrmk [Mass/Vol]114 mg/dL Critically grlq79-004EcbCincinnati Shriners HospitalComment on above:Performed By: #### POCGLUC #### [facility] [address] [address] [address] Maggy IrvingGlucose [Mass/Vol]122 mg/dLCritically bxgq84-694PpzCincinnati Shriners HospitalComment on above:Performed By: #### POCGLUC #### [facility] [address] [address] [address] Maggy IrvingPROF CHEM 8 (BAS METB)on 12-79-4323Djysi gap [Moles/Vol]12.0 mmol/LNormalCincinnati Shriners HospitalComment on above:Performed By: #### LIPID, T4, TSH, FT3, CMP #### [facility] [address] [address] [address] Maggy IrvingCalcium [Mass/Vol]8.7 mg/dLNormal8.5-10.1[facility] Comment on above:Performed By: #### LIPID, T4, TSH, FT3, CMP #### [facility] [address] [address] [address] Maggy IrvingChloride [Moles/Vol]104 mmol/XIcplzf94-311HcvCincinnati Shriners Hospital Comment on above:Performed By: #### LIPID, T4, TSH, FT3, CMP #### [facility] [address] [address] [address] Maggy IrvingCO2 [Moles/Vol]28.1 mmol/KNdxtwl89.0-32.0[facility] Comment on above:Performed By: #### LIPID, T4, TSH, FT3, CMP #### [facility] [address] [address] [address] Maggy IrvingCreatinine [Mass/Vol]0.80 mg/dLNormal0.70-1.30The [facility] Medical CenterComment on above:Performed By: #### LIPID, T4, TSH, FT3, CMP #### [facility] [address] [place] [address] Dr. Maggy AndradeGFR-AF KAZAKH>60Normal>=60The [facility] Medical CenterComment on above:Performed By: #### LIPID, T4, TSH, FT3, CMP #### [facility] [address] [place] [address] Dr. Maggy AndradeGFR-NON AF KAZAKH>60Normal>=60Cincinnati Shriners HospitalComment on above:Performed By: #### LIPID, T4, TSH, FT3, CMP #### [facility] [address] [place] [address] Dr. Maggy IrvingGlucose [Mass/Vol]129 mg/dLCritically uoci30-492Gkm [facility] CenterComment on above:Performed By: #### LIPID, T4, TSH, FT3, CMP #### [facility] [address] [place] [address] Dr. Maggy IrvingPotassium [Moles/Vol]4.1 mmol/LNormal3.5-5.1[facility] Comment on above:Performed By: #### LIPID, T4, TSH, FT3, CMP #### [facility] [address] [place] [address] Dr. Maggy IrvingSodium [Moles/Vol]140 mmol/OOppwvk239-479MxzCincinnati Shriners Hospital Comment on above:Performed By: #### LIPID, T4, TSH, FT3, CMP #### [facility] [address] [address] [address] Maggy Carlos nitrogen [Mass/Vol]20.0 mg/dLCritically high7.0-18.0The [facility] Medical CenterComment on above:Performed By: #### LIPID, T4, TSH, FT3, CMP #### [facility] [address] [place] [address] Dr. Maggy Carlos nitrogen/Creatinine [Mass ratio]25.0 mg/mgNormalThe [facility] Medical CenterComment on above:Performed By: #### LIPID, T4, TSH, FT3, CMP #### [facility] [address] [place] [address] Dr. Maggy ReyesEE T3on 88-92-6458AKII T33.24 pg/mlLNormal2.18-3.98The [facility] CenterComment on above:Performed By: #### LIPID, T4, TSH, FT3, CMP #### [facility] [address] [place] [address] Dr. Maggy IrvingT4on 38-09-7526G8 [Mass/Vol]9.10 ug/dLNormal4.50-12.10The [facility] CenterComment on above:Performed By: #### LIPID, T4, TSH, FT3, CMP #### [facility] [address] [place] [address] Dr. Maggy IrvingTSHoroxy 54-49-4396XVY0.957 uIU/mLCritically high0.358-3.740The [facility] CenterComment on above:Performed By: #### LIPID, T4, TSH, FT3, CMP #### [facility] [address] [place] [address] Dr. Maggy IrvingNM STRESS/REST MULTIon 87-48-5455VT STRESS/REST MULTIPatient: SILVINO OJEDA Exam Date: 01/03/2023 : 1950 Gender:M Ordering : DR MARCELLA GROSS . Admission #: [id number] Family : Order #: [id number] CLICK HERE TO VIEW EXAM RADIOLOGY REPORT [...] by: Olvin Khanna M.D. on 01/04/2023 at 07:45[facility] Medical CenterECHOCARDIO M/2D COMPLETEon 39-36-3258XFCVLQZYUU M/2D COMPLETEPatient: SILVINO OJEDASebas Exam Date: 12/21/2022 : 1950 Gender:M Ordering : DR MARCELLA GROSS . Admission #: [id number] Family : Order #: [id number] CLICK HERE TO VIEW EXAM ECHOCARDIOGRAM REPORT [...] by: Dez Ling M.D. on 12/23/2022 at 18:05[facility] Medical CenterBNPon 70-75-7412Zqkfigjrzam peptide B (Bld) [Mass/Vol]37.0 pg/mLNormal <=900.0The [facility] CenterComment on above:Performed By: #### LIPID, T4, TSH, FT3, CMP #### [facility] [address] [place] [address] Dr. Maggy Crocker AUTO DIFFon 95-26-5564TAMD #0.0 103/ulNormal0.0-0.1The [facility] CenterComment on above:Performed By: #### LIPID, T4, TSH, FT3, CMP #### [facility] [address] [place] [address] Dr. Maggy IrvingBasophils/100 WBC (Bld)0.2 %Normal0.2-2.0The [facility] Comment on above:Performed By: #### LIPID, T4, TSH, FT3, CMP #### [facility] [address] [place] [address] Dr. Maggy Zurita #0.2 103/ulNormal0.0-0.7The [facility] CenterComment on above: Performed By: #### LIPID, T4, TSH, FT3, CMP #### [facility] [address] [place] [address] Dr. Maggy Andradeosinophils/100 WBC (Bld)3.7 %Normal0.9-7.0The [facility] Comment on above:Performed By: #### LIPID, T4, TSH, FT3, CMP #### [facility] [address] [place] [address] Dr. Maggy Andraderythrocyte distribution width (RBC) [Ratio]11.9 %Amvuzf47.0-15.0 The [facility] Medical CenterComment on above:Performed By: #### LIPID, T4, TSH, FT3, CMP #### [facility] [address] [place] [address] Dr. Maggy IrvingHematocrit (Bld) [Volume fraction]39.7 %Critically low42.0-54.0 The [facility] Medical CenterComment on above:Performed By: #### LIPID, T4, TSH, FT3, CMP #### [facility] [address] [place] [address] Dr. Maggy IrvingHemoglobin (Bld) [Mass/Vol]14.0 g/qTIepzzi82.0-18.0The [facility]Healthment on above:Performed By: #### LIPID, T4, TSH, FT3, CMP #### [facility] [address] [place] [address] Dr. Maggy Cyr #0.02 10e3/ulNormal0.00-0.03The [facility]Healthment on above:Performed By: #### LIPID, T4, TSH, FT3, CMP #### [facility] [address] [place] [address] Dr. Maggy Cyr %0.5 %Normal0.0-0.5The [facility] Medical CenterComment on above: Performed By: #### LIPID, T4, TSH, FT3, CMP #### [facility] [address] [address] [address] Maggy Ordaz #0.9 103/ulCritically low1.2-3.8The [facility] Comment on above:Performed By: #### LIPID, T4, TSH, FT3, CMP #### [facility] [address] [place] [address] Dr. Maggy Heltonhocytes/100 WBC (Bld)21.1 %Ghawyd44.5-60.0The [facility] CenterComment on above:Performed By: #### LIPID, T4, TSH, FT3, CMP #### [facility] [address] [place] [address] Dr. Maggy Prajapati DIFF REQNONormalThe [facility] Medical CenterComment on above: Performed By: #### LIPID, T4, TSH, FT3, CMP #### [facility] [address] [place] [address] Dr. Maggy Cunningham (RBC) [Entitic mass]30.5 hfEzmbvo97.9-34.0The [facility] CenterComment on above:Performed By: #### LIPID, T4, TSH, FT3, CMP #### [facility] [address] [place] [address] Dr. Maggy Cunningham (RBC) [Mass/Vol]35.3 g/dLCritically high29.9-35.2The [facility] CenterComment on above:Performed By: #### LIPID, T4, TSH, FT3, CMP #### [facility] [address] [place] [address] Dr. Maggy Cunningham (RBC) [Entitic vol]86.5 oHIobrdx14.0-94.0The [facility] on above:Performed By: #### LIPID, T4, TSH, FT3, CMP #### [facility] [address] [place] [address] Dr. Maggy Pablo #0.4 103/ulNormal0.3-0.8The [facility] on above:Performed By: #### LIPID, T4, TSH, FT3, CMP #### [facility] [address] [place] [address] Dr. Maggy Batesocytes/100 WBC (Bld)8.7 %Normal1.7-12.0The [facility] Comment on above:Performed By: #### LIPID, T4, TSH, FT3, CMP #### [facility] [address] [place] [address] Dr. Maggy Huffman #2.9 103/ulNormal1.4-6.5The [facility] on above:Performed By: #### LIPID, T4, TSH, FT3, CMP #### [facility] [address] [place] [address] Dr. Maggy Barbourutrophils/100 WBC (Bld)65.8 %Qxpvpf30.0-75.0The [facility] on above:Performed By: #### LIPID, T4, TSH, FT3, CMP #### [facility] [address] [place] [address] Dr. Maggy IrvingPlatelet mean volume (Bld) [Entitic vol]9.9 fLNormal9.5-13.5The [facility] on above:Performed By: #### LIPID, T4, TSH, FT3, CMP #### [facility] [address] [place] [address] Dr. Maggy IrvingPLT128 103/ulCritically trs789-381Csd [facility]ment on above:Performed By: #### LIPID, T4, TSH, FT3, CMP #### [facility] [address] [place] [address] Dr. Maggy IrvingRBC4.59 106/ulCritically low4.70-6.10The [facility] on above:Performed By: #### LIPID, T4, TSH, FT3, CMP #### [facility] [address] [place] [address] Dr. Maggy IrvingWBC4.4 103/ulNormal4.0-11.0The [facility] on above: Performed By: #### LIPID, T4, TSH, FT3, CMP #### [facility] [address] [place] [address] Dr. Maggy Gresham THYROXINE INDEX T7on 55-23-5279RFE2.23Jzztvz8.30-4.50[facility] on above:Performed By: #### LIPID, T4, TSH, FT3, CMP #### [facility] [address] [place] [address] Dr. Maggy IrvingT3U34.0 %Ozxfxp36.0-40.0The [facility] CenterComsinai-grace hospital on above: Performed By: #### LIPID, T4, TSH, FT3, CMP #### [facility] [address] [place] [address] Dr. Maggy IrvingT4 [Mass/Vol]8.00 ug/dLNormal4.50-12.10ThKettering Health Comment on above:Performed By: #### LIPID, T4, TSH, FT3, CMP #### [facility] [address] [place] [address] Dr. Maggy Cervantes [id number] [Mass/Vol]134.0 ug/iUNmtrmm98.0-175.0[facility] on above:Performed By: #### LIPID, T4, TSH, FT3, CMP #### [facility] [address] [place] [address] Dr. Maggy IrvingLIPID PROFILEon [id number]-HDL RATIO NORMSEE BELOWUniversity Hospitals Parma Medical CenterComment on above:Result Comment: 3.3 - 4.4 LOW RISK 4.4 - 7.1 AVERAGE RISK 7.1 - 11.0 MODERATE RISK >11.0 HIGH RISKPerformed By: #### LIPID, T4, TSH, FT3, CMP #### [facility] [address] [place] [address] Dr. Maggy IrvingCholesterol [Mass/Vol]180 mg/dLNormal<=200The [facility] Comment on above:Performed By: #### LIPID, T4, TSH, FT3, CMP #### [facility] [address] [address] [address] Maggy Bellamy in HDL [Mass/Vol]37 mg/dLCritically isx03-23[facility] on above:Performed By: #### LIPID, T4, TSH, FT3, CMP #### [facility] [address] [place] [address] Dr. Maggy Bangesterol in LDL [Mass/Vol]95.2 mg/dLNoBrown Memorial Hospital on above:Performed By: #### LIPID, T4, TSH, FT3, CMP #### [facility] [address] [place] [address] Dr. Maggy Bellamy.total/Cholesterol in HDL [Mass ratio]4.9 {ratio} NormalAs[facility]ab[facility] on above:Performed By: #### LIPID, T4, TSH, FT3, CMP #### [facility] [address] [place] [address] Dr. Maggy Garcia NORMAL> or = 60 mg/dl - LOW CARDIOVASCULAR RISK <40 mg/dl - HIGH CARDIOVASCULAR RISKBrecksville VA / [facility]ille [facility] on above:Performed By: #### LIPID, T4, TSH, FT3, CMP #### [facility] [address] [place] [address] Dr. Maggy Mullen CALC NORMALSEE BELOWUniversity Hospitals Parma Medical CenterComsinai-grace hospital on above:Result Comment: <100 mg/dl OPTIMAL 100 - 129 mg/dl NEAR OR ABOVE OPTIMAL 130 - 159 mg/dl BORDERLINE HIGH 160 - 189 mg/dl HIGH >190 mg/dl VERY HIGH Performed By: #### LIPID, T4, TSH, FT3, CMP #### [facility] [address] [place] [address] Dr. Maggy IrvingTriglyceride [Mass/Vol]239 mg/dLCritically high<=150[facility] on above:Performed By: #### LIPID, T4, TSH, FT3, CMP #### [facility] [address] [place] [address] Dr. Yilan ChangVLDL CALC47.8 mg/dLNormalThe [facility] CenterComment on above: Performed By: #### LIPID, T4, TSH, FT3, CMP #### [facility] [address] [address] [address] Maggy Carrasco 14(COMP METB)on [id number] [Mass/Vol]3.8 g/dLNormal 3.4-5.0The [facility] CenterComment on above:Performed By: #### LIPID, T4, TSH, FT3, CMP #### [facility] [address] [address] [address] Maggy IrvingAlbumin/Globulin [Mass ratio]1.1 {ratio}NormalThe [facility]Healthment on above:Performed By: #### LIPID, T4, TSH, FT3, CMP #### [facility] [address] [place] [address] Dr. Maggy Cutler [Catalytic activity/Vol]53 U/QNmqptd78-375Pzi [facility]ment on above:Performed By: #### LIPID, T4, TSH, FT3, CMP #### [facility] [address] [place] [address] Dr. Maggy Cloud [Catalytic activity/Vol]43 U/HTtazld39-93Big [facility]ment on above:Performed By: #### LIPID, T4, TSH, FT3, CMP #### [facility] [address] [place] [address] Dr. Maggy Alarcon gap [Moles/Vol]12.2 mmol/LNormalThe [facility] Comment on above:Performed By: #### LIPID, T4, TSH, FT3, CMP #### [facility] [address] [place] [address] Dr. Maggy Martinez [Catalytic activity/Vol]22 U/COeprcf22-18Pbo [facility] on above:Performed By: #### LIPID, T4, TSH, FT3, CMP #### [facility] [address] [place] [address] Dr. Maggy Fallonirubin [Mass/Vol]0.6 mg/dLNormal0.2-1.0The [facility] Comment on above:Performed By: #### LIPID, T4, TSH, FT3, CMP #### [facility] [address] [place] [address] Dr. Maggy IrvingCalcium [Mass/Vol]8.9 mg/dLNormal8.5-10.1The [facility] Comment on above:Performed By: #### LIPID, T4, TSH, FT3, CMP #### [facility] [address] [place] [address] Dr. Maggy IrvingChloride [Moles/Vol]104 mmol/GSlzbah39-581Vfm [facility] Comment on above:Performed By: #### LIPID, T4, TSH, FT3, CMP #### [facility] [address] [place] [address] Dr. Maggy IrvingCO2 [Moles/Vol]28.8 mmol/IWvxylj99.0-32.0The [facility] Comment on above:Performed By: #### LIPID, T4, TSH, FT3, CMP #### [facility] [address] [place] [address] Dr. Maggy IrvingCreatinine [Mass/Vol]0.83 mg/dLNormal0.70-1.30The [facility] CenterComment on above:Performed By: #### LIPID, T4, TSH, FT3, CMP #### [facility] [address] [place] [address] Dr. Maggy AndradeGFR-AF KAZAKH>60Normal>=60The [facility] CenterComment on above:Performed By: #### LIPID, T4, TSH, FT3, CMP #### [facility] [address] [place] [address] Dr. Maggy AndradeGFR-NON AF KAZAKH>60Normal>=60The [facility] CenterComment on above:Performed By: #### LIPID, T4, TSH, FT3, CMP #### [facility] [address] [place] [address] Dr. Maggy IrvingGlobulin (S) [Mass/Vol]3.4 g/dLNormalThe [facility] CenterComment on above:Performed By: #### LIPID, T4, TSH, FT3, CMP #### [facility] [address] [address] [address] Maggy IrvingGlucose [Mass/Vol]116 mg/dLCritically mvxo18-632Vqe [facility]ment on above:Performed By: #### LIPID, T4, TSH, FT3, CMP #### [facility] [address] [address] [address] Maggy IrvingPotassium [Moles/Vol]4.0 mmol/LNormal3.5-5.1The [facility] Comment on above:Performed By: #### LIPID, T4, TSH, FT3, CMP #### [facility] [address] [place] [address] Dr. Maggy IrvingProtein [Mass/Vol]7.2 g/dLNormal6.4-8.2[facility] Comment on above:Performed By: #### LIPID, T4, TSH, FT3, CMP #### [facility] [address] [place] [address] Dr. Maggy IrvingSodium [Moles/Vol]141 mmol/QItudwp019-490Ibr [facility] Comment on above:Performed By: #### LIPID, T4, TSH, FT3, CMP #### [facility] [address] [place] [address] Dr. Maggy IrvingUrea nitrogen [Mass/Vol]17.0 mg/dLNormal7.0-18.0The [facility] CenterComment on above:Performed By: #### LIPID, T4, TSH, FT3, CMP #### [facility] [address] [place] [address] Dr. Maggy Carlos nitrogen/Creatinine [Mass ratio]20.5 mg/mgUniversity Hospitals Parma Medical CenterComsinai-grace hospital on above:Performed By: #### LIPID, T4, TSH, FT3, CMP #### [facility] [address] [place] [address] Dr. Maggy Pope 92-38-2154DXR4.531 uIU/mLCritically high0.358-3.740[facility] HospitalComment on above:Performed By: #### LIPID, T4, TSH, FT3, CMP #### [facility] [address] [place] [address] Dr. Maggy IrvingTESTOSTERONE, TOTALon 31-97-8977Ncccdoldvyoq [Mass/Vol]390 ng/dL Qudkal672-125Oas [facility] CenterComment on above:Result Comment: Adult male reference interval is based on a population of healthy nonobese males (BMI <30) between 19 and 39 years old. dave Jacobs.al. JCEM 2017,102;9822-9757. PMID: [id number].Performed By: #### LIPID, T4, TSH, FT3, CMP #### [facility] [address] [place] [address] Dr. Maggy IrvingCBC AUTO DIFFon [id number] #0.0 103/ulNormal0.0-0.1The [facility] CenterComment on above:Performed By: #### LIPID, T4, TSH, FT3, CMP #### [facility] [address] [place] [address] Dr. Maggy IrvingBasophils/100 WBC (Bld)0.2 %Normal0.2-2.0[facility] Comment on above:Performed By: #### LIPID, T4, TSH, FT3, CMP #### [facility] [address] [place] [address] Dr. Maggy Zurita #0.2 103/ulNormal0.0-0.7The [facility] CenterComment on above: Performed By: #### LIPID, T4, TSH, FT3, CMP #### [facility] [address] [place] [address] Dr. Maggy Andradeosinophils/100 WBC (Bld)3.1 %Normal0.9-7.0The [facility] Comment on above:Performed By: #### LIPID, T4, TSH, FT3, CMP #### [facility] [address] [place] [address] Dr. Maggy Andraderythrocyte distribution width (RBC) [Ratio]12.3 %Acgnqy25.0-15.0 The [facility] CenterComment on above:Performed By: #### LIPID, T4, TSH, FT3, CMP #### [facility] [address] [place] [address] Dr. Maggy IrvingHematocrit (Bld) [Volume fraction]41.6 %Critically low42.0-54.0 The [facility] CenterComment on above:Performed By: #### LIPID, T4, TSH, FT3, CMP #### [facility] [address] [place] [address] Dr. Maggy IrvingHemoglobin (Bld) [Mass/Vol]14.6 g/eVGdvqtm32.0-18.0The [facility] CenterComment on above:Performed By: #### LIPID, T4, TSH, FT3, CMP #### [facility] [address] [place] [address] Dr. Maggy Cyr #0.02 10e3/ulNormal0.00-0.03The [facility] CenterComment on above:Performed By: #### LIPID, T4, TSH, FT3, CMP #### [facility] [address] [place] [address] Dr. Maggy Cyr %0.4 %Normal0.0-0.5The [facility] CenterComment on above: Performed By: #### LIPID, T4, TSH, FT3, CMP #### [facility] [address] [place] [address] Dr. Maggy Ordaz #0.9 103/ulCritically low1.2-3.8The [facility] Comment on above:Performed By: #### LIPID, T4, TSH, FT3, CMP #### [facility] [address] [place] [address] Dr. Maggy Heltonhocytes/100 WBC (Bld)17.9 %Critically low20.5-60.0The [facility] CenterComment on above:Performed By: #### LIPID, T4, TSH, FT3, CMP #### [facility] [address] [place] [address] Dr. Maggy Prajapati DIFF REQNONormalThe [facility] CenterComment on above: Performed By: #### LIPID, T4, TSH, FT3, CMP #### [facility] [address] [place] [address] Dr. Mag[facility] (RBC) [Entitic mass]31.1 snObbtla52.9-34.0The [facility] HospitalComment on above:Performed By: #### LIPID, T4, TSH, FT3, CMP #### [facility] [address] [place] [address] Dr. Maggy IrvingAL[facility] (RBC) [Mass/Vol]35.1 g/fOJqtpmg91.9-35.2The [facility] CenterComment on above:Performed By: #### LIPID, T4, TSH, FT3, CMP #### [facility] [address] [place] [address] Dr. Maggy Cunningham (RBC) [Entitic vol]88.5 jXRcjjra39.0-94.0The [facility] CenterComment on above:Performed By: #### LIPID, T4, TSH, FT3, CMP #### [facility] [address] [place] [address] Dr. Maggy Pablo #0.4 103/ulNormal0.3-0.8The [facility] CenterComment on above:Performed By: #### LIPID, T4, TSH, FT3, CMP #### [facility] [address] [place] [address] Dr. Maggy Batesocytes/100 WBC (Bld)8.7 %Normal1.7-12.0The [facility] Comment on above:Performed By: #### LIPID, T4, TSH, FT3, CMP #### [facility] [address] [place] [address] Dr. Maggy Huffman #3.4 103/ulNormal1.4-6.5The [facility] CenterComment on above:Performed By: #### LIPID, T4, TSH, FT3, CMP #### [facility] [address] [place] [address] Dr. Maggy Alejandraophils/100 WBC (Bld)69.7 %Vvwdud97.0-75.0The [facility] on above:Performed By: #### LIPID, T4, TSH, FT3, CMP #### [facility] [address] [place] [address] Dr. Maggy IrvingPlatelet mean volume (Bld) [Entitic vol]9.9 fLNormal9.5-13.5The [facility] CenterComment on above:Performed By: #### LIPID, T4, TSH, FT3, CMP #### [facility] [address] [place] [address] Dr. Maggy IrvingPLT121 103/ulCritically gxv128-625Fof [facility] CenterComment on above:Performed By: #### LIPID, T4, TSH, FT3, CMP #### [facility] [address] [place] [address] Dr. Maggy IrvingRBC4.70 106/ulNormal4.70-6.10The [facility] CenterComsinai-gr[facility] hospital on above:Performed By: #### LIPID, T4, TSH, FT3, CMP #### [facility] [address] [place] [address] Dr. Maggy IrvingWBC4.8 103/ulNormal4.0-11.0The [facility] on above: Performed By: #### LIPID, T4, TSH, FT3, CMP #### [facility] [address] [place] [address] Dr. Maggy IrvingFRAME T3on 73-92-1034OQTG T33.15 pg/mlLNormal2.18-3.98The [facility] on above:Performed By: #### LIPID, T4, TSH, FT3, CMP #### [facility] [address] [place] [address] Dr. Maggy IrvingGLYCOHEMOGLOBIN A1Con [id number] RECOMMENDATIONSEE BELOWNormal The [facility] CenterComment on above:Result Comment: ADA RECOMMENDED LIMIT 4.0 - 6.0 ADA THERAPEUTIC TARGET < 7.0 ACTION SUGGESTED > 7.0Performed By: #### LIPID, T4, TSH, FT3, CMP #### [facility] [address] [address] [address] Maggy IrvingGlucose [Mass/Vol]123 mg/dLNoMercy Health Perrysburg HospitalComment on above:Performed By: #### LIPID, T4, TSH, FT3, CMP #### [facility] [address] [address] [address] Maggy IrvingHbA1c (Bld) [Mass fraction]5.9 %Normal4.5-6.2The [facility] CenterComment on above:Performed By: #### LIPID, T4, TSH, FT3, CMP #### [facility] [address] [place] [address] Dr. Maggy PittsID PROFILEon [id number]-HDL RATIO NORMSEE [facility] - AndersonComment on above:Result Comment: 3.3 - 4.4 LOW RISK 4.4 - 7.1 AVERAGE RISK 7.1 - 11.0 MODERATE RISK >11.0 HIGH RISKPerformed By: #### LIPID, T4, TSH, FT3, CMP #### [facility] [address] [place] [address] Dr. Maggy Bangesterol [Mass/Vol]174 mg/dLNormal<=200The [facility] Comment on above:Performed By: #### LIPID, T4, TSH, FT3, CMP #### [facility] [address] [place] [address] Dr. Maggy Bangesterol in HDL [Mass/Vol]36 mg/dLCritically bwl58-08Hwy [facility] CenterComment on above:Performed By: #### LIPID, T4, TSH, FT3, CMP #### [facility] [address] [place] [address] Dr. Maggy Bangesterol in LDL [Mass/Vol]114.4 mg/dLNoMercy Health Perrysburg HospitalComment on above:Performed By: #### LIPID, T4, TSH, FT3, CMP #### [facility] [address] [place] [address] Dr. Maggy IrvingCholesterol.total/Cholesterol in HDL [Mass ratio]4.8 {ratio} NormalThe [facility] CenterComment on above:Performed By: #### LIPID, T4, TSH, FT3, CMP #### [facility] [address] [address] [address] Maggy Garcia NORMAL> or = 60 mg/dl - LOW CARDIOVASCULAR RISK <40 mg/dl - HIGH CARDIOVASCULAR RISKNoMercy Health Perrysburg HospitalComment on above:Performed By: #### LIPID, T4, TSH, FT3, CMP #### [facility] [address] [address] [address] Maggy IrvingLDL CALC NORMALSEE BELOWNoMercy Health Perrysburg HospitalComment on above:Result Comment: <100 mg/dl OPTIMAL 100 - 129 mg/dl NEAR OR ABOVE OPTIMAL 130 - 159 mg/dl BORDERLINE HIGH 160 - 189 mg/dl HIGH >190 mg/dl VERY HIGH Performed By: #### LIPID, T4, TSH, FT3, CMP #### [facility] [address] [address] [address] Maggy IrvingTriglyceride [Mass/Vol]118 mg/dLNormal<=150The [facility] Comment on above:Performed By: #### LIPID, T4, TSH, FT3, CMP #### [facility] [address] [address] [address] Maggy IrvingVLDL CALC23.6 mg/dLNoMercy Health Perrysburg HospitalComment on above: Performed By: #### LIPID, T4, TSH, FT3, CMP #### [facility] [address] [place] [address] Dr. Maggy IrvingOCC BLD IMMUNO SCREENon [id number] BLOODNegativeNormal NEGATIVEThe [facility] CenterComsinai-grace hospital on above:Performed By: #### OBSCRN #### [facility] [address] [place] [address] Dr. Maggy IrvingPROF 14(COMP METB)on 21-57-8433Faqhile [Mass/Vol]3.6 g/dLNormal 3.4-5.0The [facility] CenterComment on above:Performed By: #### LIPID, T4, TSH, FT3, CMP #### [facility] [address] [place] [address] Dr. Maggy IrvingAlbumin/Globulin [Mass ratio]1.1 {ratio}NormalThe [facility]ment on above:Performed By: #### LIPID, T4, TSH, FT3, CMP #### [facility] [address] [place] [address] Dr. Maggy Cutler [Catalytic activity/Vol]47 U/PIxklzu22-798Sxk [facility] on above:Performed By: #### LIPID, T4, TSH, FT3, CMP #### [facility] [address] [place] [address] Dr. Maggy Cloud [Catalytic activity/Vol]31 U/RAgnxkr86-68Njr [facility] CenterComment on above:Performed By: #### LIPID, T4, TSH, FT3, CMP #### [facility] [address] [place] [address] Dr. Maggy Alarcon gap [Moles/Vol]10.2 mmol/LNormalThe [facility] Comment on above:Performed By: #### LIPID, T4, TSH, FT3, CMP #### [facility] [address] [place] [address] Dr. Maggy Martinez [Catalytic activity/Vol]17 U/BEtfdrr29-54Mjp [facility] on above:Performed By: #### LIPID, T4, TSH, FT3, CMP #### [facility] [address] [place] [address] Dr. Maggy IrvingBilirubin [Mass/Vol]0.6 mg/dLNormal0.2-1.0The [facility] Comment on above:Performed By: #### LIPID, T4, TSH, FT3, CMP #### [facility] [address] [place] [address] Dr. Maggy IrvingCalcium [Mass/Vol]8.1 mg/dLCritically low8.5-10.1The [facility] CenterComment on above:Performed By: #### LIPID, T4, TSH, FT3, CMP #### [facility] [address] [address] [address] Maggy IrvingChloride [Moles/Vol]105 mmol/TOiigsg05-406Sxs [facility] Comment on above:Performed By: #### LIPID, T4, TSH, FT3, CMP #### [facility] [address] [place] [address] Dr. Maggy IrvingCO2 [Moles/Vol]29.6 mmol/ZNmxifp94.0-32.0The [facility] Comment on above:Performed By: #### LIPID, T4, TSH, FT3, CMP #### [facility] [address] [place] [address] Dr. Maggy IrvingCreatinine [Mass/Vol]0.89 mg/dLNormal0.70-1.30The [facility] CenterComment on above:Performed By: #### LIPID, T4, TSH, FT3, CMP #### [facility] [address] [place] [address] Dr. Maggy AndradeGFR-AF KAZAKH>60Normal>=60The [facility] CenterComment on above:Performed By: #### LIPID, T4, TSH, FT3, CMP #### [facility] [address] [place] [address] Dr. Maggy Carlson-NON AF KAZAKH>60Normal>=60The [facility] CenterComment on above:Performed By: #### LIPID, T4, TSH, FT3, CMP #### [facility] [address] [place] [address] Dr. Maggy IrvingGlobulin (S) [Mass/Vol]3.2 g/dLNormalThe [facility] CenterComment on above:Performed By: #### LIPID, T4, TSH, FT3, CMP #### [facility] [address] [place] [address] Dr. Maggy IrvingGlucose [Mass/Vol]110 mg/dLCritically kuda34-752Ynb [facility] CenterComment on above:Performed By: #### LIPID, T4, TSH, FT3, CMP #### [facility] [address] [address] [address] Maggy IrvingPotassium [Moles/Vol]3.8 mmol/LNormal3.5-5.1The [facility] Comment on above:Performed By: #### LIPID, T4, TSH, FT3, CMP #### [facility] [address] [place] [address] Dr. Maggy IrvingProtein [Mass/Vol]6.8 g/dLNormal6.4-8.2The [facility] Comment on above:Performed By: #### LIPID, T4, TSH, FT3, CMP #### [facility] [address] [place] [address] Dr. Maggy IrvingSodium [Moles/Vol]141 mmol/EDhvtym054-055Big [facility] Comment on above:Performed By: #### LIPID, T4, TSH, FT3, CMP #### [facility] [address] [place] [address] Dr. Maggy IrvingUrea nitrogen [Mass/Vol]17.0 mg/dLNormal7.0-18.0The [facility] CenterComment on above:Performed By: #### LIPID, T4, TSH, FT3, CMP #### [facility] [address] [place] [address] Dr. Maggy Carlos nitrogen/Creatinine [Mass ratio]19.1 mg/mgNormalThe [facility] CenterComment on above:Performed By: #### LIPID, T4, TSH, FT3, CMP #### [facility] [address] [place] [address] Dr. Maggy Polanco [id number] [Mass/Vol]7.90 ug/dLNormal4.50-12.10The [facility] CenterComment on above:Performed By: #### LIPID, T4, TSH, FT3, CMP #### [facility] [address] [place] [address] Dr. Maggy Pope 87-49-1774LTE3.949 uIU/mLCritically high0.358-3.740The [facility] CenterComment on above:Performed By: #### LIPID, T4, TSH, FT3, CMP #### [facility] [address] [address] [address] Maggy Irving Vital Signs Date TimeVital SignValuePerforming GqcvqwqegFesinsjj60-32-9532 09:43-0400Body .8 cmTr[facility]07-19-2024 09:43-0400Body mass index (BMI) [Ratio]34.4 kg/i7OkwnettcxTrinity Health [facility]07-19-2024 09:43-0400Body buzprvgodeh14.3 [degF][facility]07-19-2024 09:43-0400Body .08 kgTr[facility]07-19-2024 09:43-0400Diastolic blood lwloygzn95 mm[Hg][facility] 04-06-2024 09:43-0400Heart rate87 /[facility] 04-06-2024 09:43-0400Respiratory rate18 /[facility] 04-06-2024 09:43-4503QbE3% (BldA) [Mass fraction]96 %[facility]07-19-2024 09:43-0400Systolic blood ginysitr426 mm[Hg][facility] Encounters Encounter DateEncounter TypeCare ProviderFacilityStart: 07-10-2025 End: 17-73-8770krrplyyfqtNrodkxs R NILLFacility:CD:[id number]: 06-04-2025 End: 30-42-1557pkzdtcdlmiBpqvwrk R NILLFacility:[facility]: 06-04-2025 End: 36-00-5357Ftcrttb encounter procedureMichael R NILL [phone]-PjevdSt. [facility] [place] Start: 84-79-8345udtiksbgulKuajgaq NILLFacility:[facility] CenterueStart: 04-27-2024 End: 28-91-4474uvnbsafkpaMxkcanq M [facility] Work Phone: Start: 04-27-2024 End: 88-01-3017Ijllersr ReferredMD Marcella Hoy Work Phone: [facility] Path Spec [place] HospStart: 04-06-2024 End: 55-09-4155ktkzrvvtmuMmkwrbcpb [facility] Work Phone: Start: 04-06-2024 End: 82-52-5139Qpvaain encounter procedureCape Fear [facility] Work Phone: Start: 02-10-2023 End: 99-56-9239sdvxotdxzkPVBCV D [facility] Hospitalc[facility]:G3Vpici: 02-07-2023 End: 43-54-0754yhwxzkfjvdPZHBU D [facility] Hospitalcility:S2Uaekq: 53-63-5476Pcwegfjlr for preprocedural laboratory examinationPETER D [facility] Start: 01-31-2023 End: 32-11-5911pizqpmfxuvWC MARCELLA HOY .Facility:C3Skcwa: 01-31-2023 End: 00-46-4189Wbsyifvtn for preprocedural laboratory examinationDR MARCELLA HOY .Facility:O6Kibit: 01-25-2023 End: 93-20-3947ucjnucswrrDR MARCELLA HOY .Facility:D2Akoxm: 01-07-2023 End: 23-19-1416eqbekchyyyWK MARCELLA HOY .Facility:S9Lxeyh: 01-03-2023 End: 91-47-0223hzjjzmcfwsUA MARCELLA HOY .Facility:E7Dzqhf: 12-28-2022 End: 71-08-4396hslihoegneRL MARCELLA HOY .Facility:L5Eeanj: 12-21-2022 End: 74-75-7703kyxiejldbaWW MARCELLA HOY .Facility:Q5Poxxt: 12-07-2022 End: 42-93-3564mrnkokylewYR MARCELLA HOY .Facility:G4Plgtr: 35-13-3845hvvmpfwedt PETER D [facility]:U7Ehkuy: 04-09-2022 End: 08-46-3770rorghqjhlfSA MARCELLA HOY .Facility:H1 Procedures DateProcedureProcedure DetailPerforming ClinicianStart: 70-94-5145MBS screening DR MARCELLA GROSS .Comment on above:Performed By: #### LIPID, T4, TSH, FT3, CMP #### [facility] [address] [place] [address] Dr. Maggy IrvingAmputation of fifth toeMichael NILL Repair of inguinal herniaMichael NILL Immunizations Immunization DateImmunizationNotesCare ZfzbtsfiFhajtnha54-34-4037JTHG-HtJ-2 (COVID-19) mRNA-1273 vaccineMichael NILL 657-1990Qkrcln-VjlheSt. Anthony'S Hospital 26-77-9566JROJ-CoV-2 (COVID-19) Ad26 vaccine, recombinantMichael NILL 706-9057Xejfny-DrektSt. Anthony'S Hospital Comment on above:Result Comment: 2025-05-15: [id number] Payers DatePayer CategoryPayerPolicy ID2025Medicare [id number] Health Insurance [id number]-pay1960Medicare [id number] 2..1.649793.3.57[id number] 2..1.892745.3.57[id number] 2..1.144522.3.57[id number] 2..1.524009.3.57[id number] 2.0.1.989808.3.57[id number] 2.840.1.125373.3.57[id number] 2.840.1.449187.3.57[id number] 2.0.1.710829.3.57[id number] 2.0.1.122131.3.57[id number] 2.0.1.729547.3.57[id number] 2.0.1.592942.3.57[id number] 2.0.1.364166.3.57[id number] 2.0.1.237345.3.5[id number] 2..1.836598.3.579.2.531 Social History DateTypeDetailFacilityTobacco smoking status NHISUnknown if ever smokedPremier Health [facility] Work Phone: Start: 34-88-0828Plk Assigned At [facility] Hospitaltart: 47-79-9566Tnmmzfq smoking statusNever smoked tobacco (finding)[facility] Surgery [place]Tobacco smoking statusNeverSt. [facility] Hospital [facility] [place]vueSexual OrientationSt. [facility] Hospital [facility] [place] sex Assigned At [facility] SexTacoe (finding)[facility] Clinical Note 06-04-2025 Note Date & NdkpWhotZrcjtagv79-99-5879 NoteGeneral Surgery Office/Clinic Note Chief Complaint consultation [...] male with h/o htn, hyperlipidemia, neuropathy, hypothyroidism, Yqqavqc-Dnnvv-Fqcmv disease, referred for positive fecal occult blood [...] Problem List/Past Medical History Ongoing BMI 35.0-35.9,adult Cvvholk-Liwlz-Tglwf disease Chronic ulcer of left heel Class [...] SARS-CoV-2 (COVID-19) Ad26 vaccine 12/26/2020 Recorded 2025-05-15: GQH24CyaddfUniversity Hospitals Health SystemComment on above:Result Comment: Electronically Signed By: SHANTELL MUÑOZ, Chirag Armando\Date and Time Signed: 06/04/25 15:00 EDT Clinical Note 02-07-2023 Note Date & JucaNzniErbzyqur39-28-8760 NotePROCEDURE: XR FOOT RT MIN 3 VIEWS [...] Electronically authenticated by: OLVIN KHANNA Date: 2023-02-07 09:41[facility] Evaluation + Plan note Note Date & TypeNoteFacilityEvaluation + Plan note No data available for this section [facility] [place] Evaluation note Note Date & TypeNoteFacilityEvaluation note* Diagnosis Onset Date Resolution Status Bacterial conjunctivitis of right eye [facility] Work Phone: Hospital Discharge instructions Note Date & TypeNoteFacilityHospital Discharge instructions No data available for this section [facility] Progress note Note Date & TypeNoteFacilityProgress note No data available for this section [facility] [place] Summary Purpose Family History No Family History [...] and content) DATE CREATED AUTHOR 02/25/2023 [facility] DATE CREATED AUTHOR AUTHOR'S ORGANIZ ATION 05/02/2024 [facility] DATE CREATED AUTHOR AUTHOR'S ORGANIZ ATION 07/21/2025 [facility] Care Teams (unrecognized sec tion and content) Team Status: Active Member Role Status Eva Gross MD Primary Care Provider Active Team Status: Inactive Member Role Status Eva Gross MD Primary Care Provider Active Start: April 06, 2024 End: April 06, 2024Lyndon Luciano ProviderActiveStart: April 06, 2024 End: April 06, 2024 Team Status: Inactive Member Role Status Eva Gross MD Attending Provider Active Sta rt: [...] BASED ON THE PRIMARY CLINICAL RECORDS. [facility] [employer] [facility]. provides no warranty or guarantee of the accuracy or completeness of information in this document.
--- OUTSIDE RECORDS SUMMARY | 2025-07-22 06:41 | XMS_ITS | Clinical Summary ---
Author Organization [facility] Healthcare Address [address] [place] [address] Care Team Providers Care Prompt Care Rn Name Role Phone Unavailable Primary Care Provider Unavailabl e Social History Tobacco UseTypesPacks/DayYears UsedDateSmoking Tobacco: Never AssessedSex and Gender InformationValueDate RecordedSex Assigned at BirthNot on fileLegal Sex Male12/01/2022 6:47 PM EDTGender IdentityNot on fileSexual OrientationNot on file Last Filed Vital Signs Vital SignReadingTime TakenCommentsBlood Pressure--Pulse--Temperature-- Respiratory Rate--Oxygen Saturation--Inhaled Oxygen Concentration--Qskado318 kg (229 lb)09/29/2022 12:00 PM LFECtvraj898.8 cm (5' 10 )09/29/2022 12:00 PM EST Body Mass Index32.8609/29/2022 12:00 PM EST Plan of Treatment Not on file Insurance
--- OUTSIDE RECORDS SUMMARY | 2025-07-22 06:41 | XMS_ITS | Patient Health Record ---
Author Organization [facility] [place] Address [address] [place] [address] Care Team Providers Care Physician Intensivist Name Role Phone Quinn Salamanca Primary Care Provider Allergies No Known Allergies Results Component Value Reference Range Notes CBC AUTO DIFF Reviewed date:05/06/2025 01:12:23 PM Interpretation: Performing Lab: Notes/Report: [facility] , White Blood Count 5.2 4.0-11.0 10 3/uL Red Blood Count4.614.70-6.10 10 6/aNSnljzjvhhq89.614.0-18.0 g/lUYmgwdflhcr25.9 42.0-54.0 %Mean Corpuscular Panezs89.780.0-94.0 fLMean Corpuscular Hemoglobin 31.725.9-34.0 pgMean Corpuscular HGB Conc35.729.9-35.2 g/dLRed Cell Distribution Width12.311.0-15.0 %Platelet Trotm685389-887 10 3/uLMean Platelet Dgweyy94.09.5- 13.5 fLNeutrophils Percent Auto73.743.0-75.0 %Lymphocytes Percent Auto18.120.5- 60.0 %Monocytes Percent Auto6.41.7-12.0 %Eosinophils Percent Auto1.20.9-7.0 % Basophils Percent Auto0.20.2-2.0 %Immature Granulocytes Pct Auto0.40.0-0.5 % Neutrophils Absolute Auto3.81.4-6.5 10 3/uLLymphocytes Absolute Auto0.91.2-3.8 10 3/uLMonocytes Absolute Auto0.30.3-0.8 10 3/uLEosinophils Absolute Auto0.10.0- 0.7 10 3/uLBasophils Absolute Auto0.00.0-0.1 10 3/uLImmature Granulocytes Abs Auto0.020.00-0.03 10 3/uLPerforming Lab:see noteML - [facility] LB FREE T3 Reviewed date:05/06/2025 01:12:23 PM Interpretation: Performing Lab: Notes/Report: [facility] ,Free T32.582.18-3.98 pg/mLPerforming Lab:see note - [facility] LB GLYCOHEMOGLOBIN A1C Reviewed date:05/06/2025 01:12:23 PM Interpretation: Performing Lab: Notes/Report: [facility] ,Glycohemoglobin A1C5.74.5-6.2 % ADA RECOMMENDED LIMIT 4.0 - 6.0 ADA THERAPEUTIC TARGET < 7.0 ACTION SUGGESTED > 7.0 Estimated Average Nmwmgki219Valfycbego Lab:see note - [facility] LB T4 Reviewed date:05/06/2025 01:12:23 PM Interpretation: Performing Lab: Notes/Report: [facility] ,T4 Faexmygmt26.604.50-12.10 ug/dLPerforming Lab:see noteJ.W. [facility] LBTSH Reviewed date:05/06/2025 01:12:23 PM Interpretation: Performing Lab: Notes/Report: [facility] ,Thyroid Stimulating Hormone2.5370.358-3.740 uIU/mLPerforming Lab:see note - [facility] LBCBC AUTO DIFF Reviewed date:05/24/2025 12:57:28 PM Interpretation: Performing Lab: Notes/Report: [facility] ,White Blood Count4.14.0-11.0 10 3/uLRed Blood Count4.594.70-6.10 10 6/uL Imdvohjona94.514.0-18.0 g/oVZernmsilvf54.642.0-54.0 %Mean Corpuscular Mhlvyo90.3 80.0-94.0 fLMean Corpuscular Cgfqfmuzen04.625.9-34.0 pgMean Corpuscular HGB Conc 36.629.9-35.2 g/dLRed Cell Distribution Width12.211.0-15.0 %Platelet Jkdeo959 150-450 10 3/uLMean Platelet Jnyfzf72.49.5-13.5 fLNeutrophils Percent Auto61.1 43.0-75.0 %Lymphocytes Percent Auto24.820.5-60.0 %Monocytes Percent Auto9.01.7- 12.0 %Eosinophils Percent Auto3.60.9-7.0 %Basophils Percent Auto0.50.2-2.0 % Immature Granulocytes Pct Auto1.00.0-0.5 %Neutrophils Absolute Auto2.51.4-6.5 10 3/uLLymphocytes Absolute Auto1.01.2-3.8 10 3/uLMonocytes Absolute Auto0.40.3-0.8 10 3/uLEosinophils Absolute Auto0.20.0-0.7 10 3/uLBasophils Absolute Auto0.00.0- 0.1 10 3/uLImmature Granulocytes Abs Auto0.040.00-0.03 10 3/uLPerforming Lab:see noteML - [facility] LBXR foot RT min 3V Reviewed date:05/22/2025 11:09:08 AM Interpretation: Performing Lab: Notes/Report: Source Facility: [address] [address] [place] [address] XRay Report Signed Patient: SILVINO OJEDA MR#: [id number] : 1950 Acct:[id number] Age/Sex: 75 / M ADM Date: 05/21/25 Loc: RAD Attending Dr: Noelle ROLLE Ordering Physician: Noelle Paiz Date of Service: 05/21/25 Procedure(s): XR foot RT min 3V Accession Number(s): [id number] cc: Marcella Salamanca M.D.; Noelle Paiz [address] [id number] Patient Name: SILVINO OJEDA MRN: [id number] date: 1950 Sex: M Assigned Patient Location: [facility] Current Patient Location: Accession/Order Number: [id number] Exam Date: 05/21/2025 09:44 Report Date: 05/21/2025 [...] Mistry M.D. 05/21/2025 10:10 AM Dictation Location: [address] [address] Electronically authenticated by: [id number] Y Date: 05/21/2025 10:10 Dictated By: Jamilah Mistry M.D. Signed By: 05/21/25 1013 DD/ 1010 TD/TT: [employer] System:Occult Blood* Reviewed date:05/06/2025 01:56:05 PM Interpretation: Performing Lab: Notes/Report: [facility] ,Occult BloodPositivePerforming Lab:see noteML - [facility] LB Testosterone Reviewed date:05/07/2025 03:31:36 PM Interpretation: Performing Lab: Notes/Report: [facility] ,Aitqgehhaxpx822580-747 ng/dL Adult male reference interval is based on a population of healthy nonobese males (BMI <30) between 19 and 39 years old. Reynaldo et.al. JCEM 2017,102;5526-6691. PMID: 72325657. Performed at: [facility] Lab[address] [id number] Team Otr Truck Driver: Luis Ruby PhD, Phone: [phone] Performing Lab:see ashley - [facility] LBURIC ACID SERUM Reviewed date:05/06/2025 01:12:23 PM Interpretation: Performing Lab: Notes/Report: [facility] ,Uric Acid6.03.5-7.2 mg/dLPerforming Lab:see noteML - [facility] LB PSA SCREENING Reviewed date:05/06/2025 01:12:23 PM Interpretation: Performing Lab: Notes/Report: [facility] ,Prostate Specific Antigen Scrn2.21<=4.00 ng/mLPerforming Lab:see noteML - [facility] LBPROF 14(COMP METB) Reviewed date:05/06/2025 01:12:23 PM Interpretation: Performing Lab: Notes/Report: [facility] ,Rtmxyq864045-782 mmol/LPotassium4.23.5-5.1 mmol/GVrapbmgh20739-346 mmol/LCarbon Gpzrcgh00.321.0-32.0 mmol/LAnion Gap7.1Qpuqotv58928-346 mg/dLBlood Urea Nitrogen 15.07.0-18.0 mg/dLCreatinine0.730.70-1.30 mg/dLEstimated GFR ( Nery>60 >=60 mL/min/1.73m 2Estimated GFR (Non- Kristen>60>=60 mL/min/1.73m 2BUN Creatinine Ratio20.6Lhjlrmu6.88.5-10.1 mg/dLBilirubin Total0.70.2-1.0 mg/dL Aspartate Amino Iekecgnluog7701-50 U/LAlanine Xelkwgrgftsfvflq11614-09 U/L Alkaline Balhyptvvmy2641-808 U/LTotal Protein7.86.4-8.2 g/dLAlbumin Level4.03.4- 5.0 g/dLGlobulin3.8Albumin Globulin Ratio1.1Performing Lab:see noteML - [facility] LBLIPID PROFILE Reviewed date:05/06/2025 01:12:23 PM Interpretation: Performing Lab: Notes/Report: [facility] ,Deqgruxtahzon130<=150 mg/rLUdlkfsoqynx711<=200 mg/dLHDL Xhlkugnwfeg0783-94 mg/dL > or =60 mg/dl - LOW CARDIOVASCULAR RISK <40 mg/dl - HIGH CARDIOVASCULAR RISK LDL Cholesterol Nyzuulknco161.0 <100 mg/dl OPTIMAL 100-129 mg/dl NEAR OR ABOVE OPTIMAL 130-159 mg/dl BORDERLINE HIGH 160-189 mg/dl HIGH >190 mg/dl VERY HIGH VLDL KVKIHFXYGNS89.6Chol HDL Ratio5.1 3.3 - 4.4 LOW RISK 4.4 - 7.1 AVERAGE RISK 7.1 - 11.0 MODERATE RISK >11.0 HIGH RISK Performing Lab:see noteML - [facility] LBINSULIN Reviewed date:05/07/2025 03:31:36 PM Interpretation: Performing Lab: Notes/Report: [facility] ,Cpbkxfe32.52.6-24.9 uIU/mL Performed at: [facility] [address] [id number] Team Otr Truck Driver: Luis Ruby PhD, Phone: [phone] Performing Lab:[facility] noteNA[facility] LBUS abdomen complete Reviewed date:05/14/2025 04:06:22 PM Interpretation: Performing Lab: Notes/Report: Source Facility: [place] [address] Ultrasound Report Signed Patient: SILVINO OJEDA MR#: [id number] : 1950 Acct:[id number] Age/Sex: 75 / M ADM Date: 05/14/25 Loc: US Attending Dr: Marcella Salamanca M.D. Ordering Physician: Marcella Salamanca M.D. Date of Service: 05/14/25 Procedure(s): US abdomen complete Accession Number(s): [id number] cc: Marcella Salamanca M.D. [place] [address] Patient Name: SILVINO OJEDA MRN: [id number] date: 1950 Sex: M Assigned Patient Location: US Current Patient Location: [place] Accession/Order Number: [id number] Exam Date: 05/14/2025 07:02 Report Date: 05/14/2025 [...] Mistry M.D. 05/14/2025 9:39 AM Dictation Location: [place] [address] Electronically authenticated by: [id number] Y Date: 05/14/2025 09:39 Dictated By: Jamilah Mistry M.D. Signed By: 05/14/25 0942 DD/ 0939 TD/TT: [employer] System: Reason For Referral Diagnosis 1 Anemia (D64.9) Diagnosis 2 Occult blood positiv e stool (R19.5) Referral Organization [facility] Referring Provider First Name Quinn [...] alcohol in the p ast year? No Nwsqgi6IvvrwliiwrlvqwMhgtsoebUMJGB-W (Standard) Question Answer Notes Did you have a drink containing alcohol in the p ast year? No Tpxmsh2IlhipaagxnmjltNqorylkj Problems Problem Type SNOMED Code ICD Code Onset Dates Problem Status W/U Status Risk Notes Problem Tinea cruris (953004738) Tinea cruris (B3 5.6) ActiveconfirmedProblemThyrotoxicosis (43870582)Thyrotoxicosis, unspecified without thyrotoxic crisis or storm (E05.90)ActiveconfirmedProblemChronic ulcer of foot (149603240)Non-pressure chronic ulcer of left heel and midfoot with fat layer exposed (L97.422)ActiveconfirmedProblemNon-pressure chronic ulcer of other part of right foot limited to breakdown of skin (L97.511)ActiveconfirmedProblem Acquired deformity of right foot (disorder) (319504929)Other acquired deformities of right foot (M21.6X1)Activeconfirmedcavovarus contractureProblem Acquired deformity of left foot (disorder) (716642580)Other acquired deformities of left foot (M21.6X2)Activeconfirmedcavovarus contractureProblemContracture of joint of right ankle (disorder) (651113164152194)Contracture, 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)ActiveconfirmedProblemContracture of joint of left ankle (disorder) (067370719350560)Contracture, left ankle (M24.572)ActiveconfirmedProblem Contracture of joint of left foot (disorder) (816486875114329)Contracture, left foot (M24.575)ActiveconfirmedProblemInstability of joint of right ankle (5918920540784615)Other instability, right ankle (M25.371)ActiveconfirmedProblem Pain of left knee joint (finding) (438525991867331)Pain in left knee (M25.562) ActiveconfirmedProblemClosed fracture of phalanx of foot (01166708)Nondisplaced unspecified fracture of left great toe, initial encounter for closed fracture (S92.405A)ActiveconfirmedProblemHypertension (68520643)HTN (hypertension) (I10) ActiveconfirmedProblemDyspnea on exertion (64773313)Dyspnea on exertion (R06.09) ActiveconfirmedProblemAnemia (756072990)Anemia (D64.9)ActiveconfirmedProblem Neuropathy (356557718)Neuropathy (G62.9)ActiveconfirmedProblemTinnitus (82888790)Tinnitus (H93.19)ActiveconfirmedProblemEdema (117507466)Edema leg (R60.0)ActiveconfirmedProblemHemorrhoids (67182469)Hemorrhoids (K64.9)Active confirmedProblemAbnormal feces (851218151)Occult blood positive stool (R19.5) ActiveconfirmedProblemOverweight (272014293)Over weight (E66.3)Activeconfirmed ProblemGanglion cyst (81160731)Ganglion cyst (M67.40)ActiveconfirmedProblem Erectile dysfunction (disorder) (787182518)Impotence (N52.9)Activeconfirmed ProblemAcquired cavovarus deformity of right foot (3771134370062113)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)ActiveconfirmedProblemLipoma of spermatic cord (48647331)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 Leukocytosis (513486819)Elevated white blood cell count (D72.829)Activeconfirmed ProblemEssential hypertension (30293062)Essential (primary) hypertension (I10) ActiveconfirmedProblemSexual dysfunction (20531266)Sexual dysfunction (R37) ActiveconfirmedProblemInguinal hernia (disorder) (065370319)Hernia, inguinal (K40.90)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)Activeconfirmed ProblemXanthelasma (26025279)Xanthelasma (H02.60)ActiveconfirmedProblemAcquired hammer toe of right foot (4675884799557107)Hammertoe of right foot (M20.41) 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confirmedProblemDecreased testosterone level (853834258)Decreased testosterone level (R79.89)ActiveconfirmedProblemDecubitus ulcer of left foot, stage 1 (L89.891)ActiveconfirmedProblemChronic ulcer of right heel with fat layer exposed (L97.412)ActiveconfirmedProblemChronic ulcer of right heel (disorder) (77997345375479614)Chronic ulcer of right heel limited to breakdown of skin (L97.411)ActiveconfirmedProblemUlcer of right foot with necrosis of muscle (L97.513)Activeconfirmed Vital Signs Blood pressure diastolic 86 mm Hg 05/06/2025 Esrddc09 in05/06/2025lood pressure zyormbam047 mm Hg05/06/20253592Jkhnnj036.8 lbs 05/06/2025BMI35.12 kg/m205/06/2025 Procedures Procedure Date Ordered Date Performed Result Body Sit e Cerumen Removal - performed 05/06/2025 N/A Encounters Encounter Location Date Provider Diagnosis [facility] [address] [place] [address] 05/06/2025 Quinn Hoy Anemia D64.9 and Elevated liver enzymes R74.8 [facility] [address] [place] [address] 05/06/2025 Quinn Hoy Anemia D64.9 and Occult blood positive stool R19.5 [facility] [address] [place] [address] 05/07/[address] [facility] [place] [address] [facility] [place] [address]/05/2025Doug HoyElevated white blood cell count D72.829[facility] [place] [place] [address]/ Quinn HoyDyspnea on exertion R06.09[facility] [place] [address]/Doug HoyDyspnea on exertion R06.09[facility] [place] [address]/ Quinn HoyDecreased testosterone level R79.89 ; Essential [...] - D72.829)05/06/2025 Neuropathy (ICD-10 - G62.9)stabel no ncamexvuyp58/18/2025Occult blood positive stool (ICD-10 - R19.5)05/06/2025erumen impaction [...] Provider Name:Quinn Salamanca, 09:15:00 AM, [address] [place], [address], Insurance Providers Payer Name Payer Address Payer Phone Subscriber Number Group Number Insured Name Patient Relationship to Insured Coverage Start Date Coverage End Date [place] [address] [place] [address] [id number] [place] Ojedaelf - patient is the [id number] 2017[facility] MEDICARE SUPPLEMENTPO [address] [place] [id number], PhilipSelf - patient is the [id number] 2017 Medical (General) History Medical History History ICD Code hypertension gimjxkrtgwyqdmqvjrgyfxguCcbstgz-Juftl-Yqezc atrophyCavus deformity of bilateral feetbilateral foot painNon-pressure chronic ulcer of other part of right foot limited to breakdown of skinL97.511Dyspnea on tkajzasoI15.09Edema legR60.0Over zruistL55.8SulopyfujN19.9Pain in left kneeM25.562Decreased testosterone level R79.89Nondisplaced unspecified fracture of left great toe, initial encounter for closed pwefrhyfP35.405ATinea hmxrebA35.6Lipoma of spermatic cordD17.6Hernia, wuqptkalI80.04NwufgideG09.19Sexual rbvzvdbnwecW53ObpqwbpgowyL68.9Xanthelasma H02.60Surgical History Surgery Date(Month/Year) colonoscopy Dr Jacobson 07/10/25 Hernia Repair Foot Surgery- Dr. Schneider01/2023
--- OUTSIDE RECORDS SUMMARY | 2025-07-22 06:41 | XMS_ITS | Patient Health Record ---
Author Organization [facility] Address [address] [place] [address] Care Team Providers Care Manager Psychology Name Role Phone Brock Gross Primary Care Provider [facility] [phone] Reason For Referral No Information Medications Medication [...] alcohol in the p ast year? No Uczcmt2AwyulxemhuhlfmXtidmwxcVsxsykk Control (Standard) Question Answer Notes Tobacco use: Nonsmoker Plan Of Treatment Pending Test Test Name Order Date SCC- HAND 3 VIEW RIGHT 39625 05/28/2024 Insurance Providers Payer Name Payer Address Payer Phone Subscriber Number Group Number Insured Name Patient Relationship to Insured Coverage Start Date Coverage End [place] [address] [place] [address] [id number] ARMANDO MARVINelf - patient is the insured[facility]cal [facility] CenterPO [address] [place] [id number], PHILIPSelf - patient is the insured
[2025-07-22 07:24] LABS: Hematocrit 39.6 % (42.0-54.0); Hemoglobin 14.0 g/dL (14.0-18.0); Immature Granulocytes Abs Auto 0.02 10^3/uL (0.00-0.03); Immature Granulocytes Pct Auto 0.5 % (0.0-0.5); Lymphocytes Absolute Auto 1.0 10^3/uL (1.2-3.8); Mean Corpuscular HGB Conc 35.4 g/dL (29.9-35.2); Mean Corpuscular Hemoglobin 31.3 pg (25.9-34.0); Mean Corpuscular Volume 88.4 fL (80.0-94.0); Platelet Count 132 10^3/uL (150-450); Red Blood Count 4.48 10^6/uL (4.70-6.10); White Blood Count 4.0 10^3/uL (4.0-11.0)
== END 2025-07-22 06:38 | disposition home or self-care (01) ==
LOC: LAB 06:38
PROVIDERS: PCP Family Medicine; Visit Provider Family Medicine
DX: D72.829 Elevated white blood cell count, unspecified (principal)
CPT/HCPCS: 36415; 85025

== ENCOUNTER 2025-07-31 08:58 | Outpatient (OUT) | payer MEDICARE, OTHER, SELFPAY ==
--- OUTSIDE RECORDS SUMMARY | 2024-06-20 04:00 | XMS_ITS ---
Author Organization The [facility] in [place] Address [address] [place] [address] Care Team Providers Care Fruit Ii Farmworker Name Role Phone Renato Quinn Primary Care Provider [phone] Gaudencio Wilson [phone] REASON FOR VISIT 8 week f/u Encounters Encounter Location Date Provider Diagnosis [facility] (PODIATRY) [address] [place] [address] [place] [address] 06/20/2024 Gaudencio Schneider Plan Of Treatment Next Appt Details Provider Name:Quinn Gross, 09:15:00 AM, [address] [place], [address], Progress Notes * Michael OJEDA LDOB:1949 (75 yo M)Acc No.[id number]:06/20/2024 UNLOCKED PROGRESS NOTE Follow Up Patient: Michael HAGER :?Gaudencio Schneider DPM, MSDOB:1950???Age: 74 Y???Sex:MaleDate:4Phone:[phone]:[address] [place] [address], [place], [id number]:Quinn Gross Subjective: * Chief Complaints: * 1 . 8 week f/u. * Medical History: Objective: * Vitals: Assessment: Plan: * Treatment: * * Electronic signature of Gaudencio Schneider DPM on 07/31/2025 at 09:02 AM ESTSign off status: PendingVisit Status:?CANC (Cancelled) * Provider: Helen Schneider DPM, MS Date: Generated for Printing/Faxing/eTransmitting on:?07/31/2025 09:02 AM EST
--- OUTSIDE RECORDS SUMMARY | 2025-07-31 09:02 | XMS_ITS | Clinical Summary ---
Author Organization [facility] Address [address] [place] [address] Care Team Providers Care Concrete Analyst Name Role Phone Unavailable Primary Care Provider Unavailabl e Social History Tobacco UseTypesPacks/DayYears UsedDateSmoking Tobacco: Never AssessedSex and Gender InformationValueDate RecordedSex Assigned at BirthNot on fileLegal Sex Male12/01/2022 6:47 PM EDTGender IdentityNot on fileSexual OrientationNot on file Last Filed Vital Signs Vital SignReadingTime TakenCommentsBlood Pressure--Pulse--Temperature-- Respiratory Rate--Oxygen Saturation--Inhaled Oxygen Concentration--Vigrdt831 kg (229 lb)09/29/2022 12:00 PM YWLVpasai785.8 cm (5' 10 )09/29/2022 12:00 PM EST Body Mass Index32.8609/29/2022 12:00 PM EST Plan of Treatment Not on file Insurance
--- OUTSIDE RECORDS SUMMARY | 2025-07-31 09:03 | XMS_ITS | Patient Health Record ---
Author Organization [facility] [place] Address [address] [place] [address] Care Team Providers Care Core Loader Name Role Phone Quinn Gross Primary Care Provider [phone] Allergies No Known Allergies Results Component Value Reference Range Notes US abdomen complete Reviewed date:05/14/2025 04:06:22 PM Interpretation: Performing Lab: Notes/Report: Source Facility: [place] [address] Ultrasound Report Signed Patient: SILVINO OJEDA MR#: [id number] : 1950 Acct:[id number] Age/Sex: 75 / M ADM Date: 05/14/25 Loc: US Attending Dr: Marcella Gross M.D. Ordering Physician: Marcella Gross M.D. Date of Service: 05/14/25 Procedure(s): US abdomen complete Accession Number(s): [id number] cc: Macrella Gross M.D. [place] [address] Patient Name: SILVINO OJEDA MRN: [id number] date: 1950 Sex: M Assigned Patient Location: US Current Patient Location: US Accession/Order Number: [id number] Exam Date: 05/14/2025 07:02 Report Date: 05/14/2025 [...] Mistry M.D. 05/14/2025 9:39 AM Dictation Location: [place] [address] Electronically authenticated by: [id number] Y Date: 05/14/2025 09:39 Dictated By: Jamilah Mistry M.D. Signed By: 05/14/25 0942 DD/ 0939 TD/TT: Technical Data Analyst: CBC AUTO DIFF Reviewed date:05/06/2025 01:12:23 PM Interpretation: Performing Lab: Notes/Report: [facility] , White Blood Count 5.2 4.0-11.0 10 3/uL Red Blood Count4.614.70-6.10 10 6/bRLgviilzwni95.614.0-18.0 g/vNMlvpiycmdt83.9 42.0-54.0 %Mean Corpuscular Cogaaj14.780.0-94.0 fLMean Corpuscular Hemoglobin 31.725.9-34.0 pgMean Corpuscular HGB Conc35.729.9-35.2 g/dLRed Cell Distribution Width12.311.0-15.0 %Platelet Qpnwf034660-876 10 3/uLMean Platelet Zqagqc84.09.5- 13.5 fLNeutrophils Percent Auto73.743.0-75.0 %Lymphocytes Percent Auto18.120.5- 60.0 %Monocytes Percent Auto6.41.7-12.0 %Eosinophils Percent Auto1.20.9-7.0 % Basophils Percent Auto0.20.2-2.0 %Immature Granulocytes Pct Auto0.40.0-0.5 % Neutrophils Absolute Auto3.81.4-6.5 10 3/uLLymphocytes Absolute Auto0.91.2-3.8 10 3/uLMonocytes Absolute Auto0.30.3-0.8 10 3/uLEosinophils Absolute Auto0.10.0- 0.7 10 3/uLBasophils Absolute Auto0.00.0-0.1 10 3/uLImmature Granulocytes Abs Auto0.020.00-0.03 10 3/uLPerforming Lab:see note - [facility] FREE T3 Reviewed date:05/06/2025 01:12:23 PM Interpretation: Performing Lab: Notes/Report: [facility] ,Free T32.582.18-3.98 pg/mLPerforming Lab:see [facility] GLYCOHEMOGLOBIN A1C Reviewed date:05/06/2025 01:12:23 PM Interpretation: Performing Lab: Notes/Report: [facility] ,Glycohemoglobin A1C5.74.5-6.2 % ADA RECOMMENDED LIMIT 4.0 - 6.0 ADA THERAPEUTIC TARGET < 7.0 ACTION SUGGESTED > 7.0 Estimated Average Ivlrhfj135Hhdgcoihpo Lab:see note - [facility] LB INSULIN Reviewed date:05/07/2025 03:31:36 PM Interpretation: Performing Lab: Notes/Report: [facility] ,Bqnddqs85.52.6-24.9 uIU/mL Performed at: [facility] Lab[address] [id number] Public Health Social Worker: Luis Ruby PhD, Phone: [phone] Performing Lab:see [facility]SW[facility] Labs[facility] LBLIPID PROFILE Reviewed date:05/06/2025 01:12:23 PM Interpretation: Performing Lab: Notes/Report: [facility] ,Ofdzvdxrbytxe515<=150 mg/zJWvdmogjsfjk368<=200 mg/dLHDL Getyfvxfdig2356-45 mg/dL > or =60 mg/dl - LOW CARDIOVASCULAR RISK <40 mg/dl - HIGH CARDIOVASCULAR RISK LDL Cholesterol Xwdjlaxmht900.0 <100 mg/dl OPTIMAL 100-129 mg/dl NEAR OR ABOVE OPTIMAL 130-159 mg/dl BORDERLINE HIGH 160-189 mg/dl HIGH >190 mg/dl VERY HIGH VLDL NFVRWYRMUMG54.6Chol HDL Ratio5.1 3.3 - 4.4 LOW RISK 4.4 - 7.1 AVERAGE RISK 7.1 - 11.0 MODERATE RISK >11.0 HIGH RISK Performing Lab:see noteML - [facility] LBPROF 14(COMP METB) Reviewed date:05/06/2025 01:12:23 PM Interpretation: Performing Lab: Notes/Report: [facility] ,Cmbelj029266-783 mmol/LPotassium4.23.5-5.1 mmol/HNrmkusno45966-143 mmol/LCarbon Drhddwa17.321.0-32.0 mmol/LAnion Gap7.7Cmtghuf67542-398 mg/dLBlood Urea Nitrogen 15.07.0-18.0 mg/dLCreatinine0.730.70-1.30 mg/dLEstimated GFR ( Nery>60 >=60 mL/min/1.73m 2Estimated GFR (Non- Kristen>60>=60 mL/min/1.73m 2BUN Creatinine Ratio20.7Mdcetlr5.88.5-10.1 mg/dLBilirubin Total0.70.2-1.0 mg/dL Aspartate Amino Qrfjntxekxs5202-92 U/LAlanine Aqqreqlgtglvxhhc60483-72 U/L Alkaline Ygcwdohbmsa0003-619 U/LTotal Protein7.86.4-8.2 g/dLAlbumin Level4.03.4- 5.0 g/dLGlobulin3.8Albumin Globulin Ratio1.1Performing Lab:see note - [facility] LBT4 Reviewed date:05/06/2025 01:12:23 PM Interpretation: Performing Lab: Notes/Report: [facility] ,T4 Udwczsije47.604.50-12.10 ug/dLPerforming Lab:see note - [facility] LBTSH Reviewed date:05/06/2025 01:12:23 PM Interpretation: Performing Lab: Notes/Report: [facility] ,Thyroid Stimulating Hormone2.5370.358-3.740 uIU/mLPerforming Lab:see note - [facility] LBURIC ACID SERUM Reviewed date:05/06/2025 01:12:23 PM Interpretation: Performing Lab: Notes/Report: [facility] ,Uric Acid6.03.5-7.2 mg/dLPerforming Lab:see note - [facility] LB Testosterone Reviewed date:05/07/2025 03:31:36 PM Interpretation: Performing Lab: Notes/Report: [facility] ,Kqxgqnibxowf926932-070 ng/dL Adult male reference interval is based on a population of healthy nonobese males (BMI <30) between 19 and 39 years old. Reynaldo et.al. JCEM 2017,102;0056-3552. PMID: 97136785. Performed at: [address] [id number] Public Health Social Worker: Luis Rbuy PhD, Phone: [phone] Performing Lab:see [facility] LBOccult Blood* Reviewed date:05/06/2025 01:56:05 PM Interpretation: Performing Lab: Notes/Report: [facility] ,Occult BloodPositivePerforming Lab:see note - [facility] LBCBC AUTO DIFF Reviewed date:05/24/2025 12:57:28 PM Interpretation: Performing Lab: Notes/Report: [facility] ,White Blood Count4.14.0-11.0 10 3/uLRed Blood Count4.594.70-6.10 10 6/uL Elwwzskqjb76.514.0-18.0 g/dGKgprlxivfm23.642.0-54.0 %Mean Corpuscular Qrtnom03.3 80.0-94.0 fLMean Corpuscular Pravguhqqp07.625.9-34.0 pgMean Corpuscular HGB Conc 36.629.9-35.2 g/dLRed Cell Distribution Width12.211.0-15.0 %Platelet Bjlkl560 150-450 10 3/uLMean Platelet Oxpabw04.49.5-13.5 fLNeutrophils Percent Auto61.1 43.0-75.0 %Lymphocytes Percent Auto24.820.5-60.0 %Monocytes Percent Auto9.01.7- 12.0 %Eosinophils Percent Auto3.60.9-7.0 %Basophils Percent Auto0.50.2-2.0 % Immature Granulocytes Pct Auto1.00.0-0.5 %Neutrophils Absolute Auto2.51.4-6.5 10 3/uLLymphocytes Absolute Auto1.01.2-3.8 10 3/uLMonocytes Absolute Auto0.40.3-0.8 10 3/uLEosinophils Absolute Auto0.20.0-0.7 10 3/uLBasophils Absolute Auto0.00.0- 0.1 10 3/uLImmature Granulocytes Abs Auto0.040.00-0.03 10 3/uLPerforming Lab:see noteML - [facility] LBPSA SCREENING Reviewed date:05/06/2025 01:12:23 PM Interpretation: Performing Lab: Notes/Report: [facility] ,Prostate Specific Antigen Scrn2.21<=4.00 ng/mLPerforming Lab:see noteML - [facility] LBCBC AUTO DIFF Reviewed date:07/22/2025 06:27:46 PM Interpretation: Performing Lab: Notes/Report: [facility] ,White Blood Count4.04.0-11.0 10 3/uLRed Blood Count4.484.70-6.10 10 6/uL Heffnxyrms48.014.0-18.0 g/yYWzqlzepzto08.642.0-54.0 %Mean Corpuscular Rrhwds36.4 80.0-94.0 fLMean Corpuscular Yqckqogjwg74.325.9-34.0 pgMean Corpuscular HGB Conc 35.429.9-35.2 g/dLRed Cell Distribution Width12.211.0-15.0 %Platelet Nyrvk672 150-450 10 3/uLMean Platelet Jorglt02.49.5-13.5 fLNeutrophils Percent Auto64.8 43.0-75.0 %Lymphocytes Percent Auto23.820.5-60.0 %Monocytes Percent Auto10.31.7- 12.0 %Eosinophils Percent Auto0.30.9-7.0 %Basophils Percent Auto0.30.2-2.0 % Immature Granulocytes Pct Auto0.50.0-0.5 %Neutrophils Absolute Auto2.61.4-6.5 10 3/uLLymphocytes Absolute Auto1.01.2-3.8 10 3/uLMonocytes Absolute Auto0.40.3-0.8 10 3/uLEosinophils Absolute Auto0.00.0-0.7 10 3/uLBasophils Absolute Auto0.00.0- 0.1 10 3/uLImmature Granulocytes Abs Auto0.020.00-0.03 10 3/uLPerforming Lab:see noteML - [facility] LBXR foot RT min 3V Reviewed date:05/22/2025 11:09:08 AM Interpretation: Performing Lab: Notes/Report: Source Facility: [place] [address] [place] [address] XRay Report Signed Patient: SILVINO OJEDA MR#: [id number] : 1950 Acct:[id number] Age/Sex: 75 / M ADM Date: 05/21/25 Loc: RAD Attending Dr: Noelle ROLLE Ordering Physician: Noelle Paiz Date of Service: 05/21/25 Procedure(s): XR foot RT min 3V Accession Number(s): [id number] cc: Marcella Gross M.D.; Noelle Paiz [place] [id number] Patient Name: SILVINO OJEDA MRN: [id number] date: 1950 Sex: M Assigned Patient Location: [facility] Current Patient Location: Accession/Order Number: [id number] Exam Date: 05/21/2025 09:44 Report Date: 05/21/2025 [...] Mistry M.D. 05/21/2025 10:10 AM Dictation Location: [place] Electronically authenticated by: [id number] Y Date: 05/21/2025 10:10 Dictated By: Jamilah Mistry M.D. Signed By: 05/21/25 1013 DD/ 1010 TD/TT: Technical Data Analyst: Reason For Referral Diagnosis 1 Anemia (D64.9) Diagnosis 2 Occult blood positiv e stool (R19.5) Referral Organization [facility] Medicine Referring Provider First Name Quinn [...] MG1 tablet Orally twice daily; Duration: 30 days5ActiveAspirin 325 MG2 tablet Orally Once a dayActiveDoxazosin Mesylate 4 mgTAKE 1 TABLET BY MOUTH ONCE DAILY; Duration: 90Active Social History Tobacco Use: Social History Observation Description Date Details (start date - stop date) Never Smoker NA - NA Tobacco Use/Smoking Question Answer Notes Patient is a nonsmoker Alcohol Screen (Audit-C) Question Answer Notes Did you have a drink containing alcohol in the p ast year? No Powehy1CulxvisgvjyhqiCrvzvzmaKSHRU-L (Standard) Question Answer Notes Did you have a drink containing alcohol in the p ast year? No Qayrib3DcnwapqmwksvkoWdbljfnp Problems Problem Type SNOMED Code ICD Code Onset Dates Problem Status W/U Status Risk Notes Problem Tinea cruris (846923567) Tinea cruris (B3 5.6) ActiveconfirmedProblemThyrotoxicosis (85980769)Thyrotoxicosis, unspecified without thyrotoxic crisis or storm (E05.90)ActiveconfirmedProblemChronic ulcer of foot (696533276)Non-pressure chronic ulcer of left heel and midfoot with fat layer exposed (L97.422)ActiveconfirmedProblemNon-pressure chronic ulcer of other part of right foot limited to breakdown of skin (L97.511)ActiveconfirmedProblem Acquired deformity of right foot (disorder) (989727845)Other acquired deformities of right foot (M21.6X1)Activeconfirmedcavovarus contractureProblem Acquired deformity of left foot (disorder) (691229783)Other acquired deformities of left foot (M21.6X2)Activeconfirmedcavovarus contractureProblemContracture of joint of right ankle (disorder) (633238268240548)Contracture, 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)ActiveconfirmedProblemContracture of joint of left ankle (disorder) (587238627530419)Contracture, left ankle (M24.572)ActiveconfirmedProblem Contracture of joint of left foot (disorder) (715692248954963)Contracture, left foot (M24.575)ActiveconfirmedProblemInstability of joint of right ankle (5194476868160062)Other instability, right ankle (M25.371)ActiveconfirmedProblem Pain of left knee joint (finding) (419443651687731)Pain in left knee (M25.562) ActiveconfirmedProblemClosed fracture of phalanx of foot (14489431)Nondisplaced unspecified fracture of left great toe, initial encounter for closed fracture (S92.405A)ActiveconfirmedProblemHypertension (28850944)HTN (hypertension) (I10) ActiveconfirmedProblemDyspnea on exertion (37296168)Dyspnea on exertion (R06.09) ActiveconfirmedProblemAnemia (190243633)Anemia (D64.9)ActiveconfirmedProblem Neuropathy (181266191)Neuropathy (G62.9)ActiveconfirmedProblemTinnitus (60188537)Tinnitus (H93.19)ActiveconfirmedProblemEdema (656990147)Edema leg (R60.0)ActiveconfirmedProblemHemorrhoids (82047774)Hemorrhoids (K64.9)Active confirmedProblemAbnormal feces (371630227)Occult blood positive stool (R19.5) ActiveconfirmedProblemOverweight (303533715)Over weight (E66.3)Activeconfirmed ProblemGanglion cyst (10535625)Ganglion cyst (M67.40)ActiveconfirmedProblem Erectile dysfunction (disorder) (612245442)Impotence (N52.9)Activeconfirmed ProblemAcquired cavovarus deformity of right foot (5491801560916515)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)ActiveconfirmedProblemLipoma of spermatic cord (71013052)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 Leukocytosis (480737531)Elevated white blood cell count (D72.829)Activeconfirmed ProblemEssential hypertension (14257922)Essential (primary) hypertension (I10) ActiveconfirmedProblemSexual dysfunction (90292422)Sexual dysfunction (R37) ActiveconfirmedProblemInguinal hernia (disorder) (514355782)Hernia, inguinal (K40.90)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)Activeconfirmed ProblemXanthelasma (50787007)Xanthelasma (H02.60)ActiveconfirmedProblemAcquired hammer toe of right foot (3462516037232069)Hammertoe of right foot (M20.41) 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confirmedProblemDecreased testosterone level (397820085)Decreased testosterone level (R79.89)ActiveconfirmedProblemDecubitus ulcer of left foot, stage 1 (L89.891)ActiveconfirmedProblemChronic ulcer of right heel with fat layer exposed (L97.412)ActiveconfirmedProblemChronic ulcer of right heel (disorder) (66756614712254314)Chronic ulcer of right heel limited to breakdown of skin (L97.411)ActiveconfirmedProblemUlcer of right foot with necrosis of muscle (L97.513)Activeconfirmed Vital Signs Blood pressure diastolic 86 mm Hg 05/06/2025 Uhuhxv75 in05/06/2025lood pressure xadqfzlw460 mm Hg05/06/20252362Rhuqmk114.8 lbs 05/06/2025BMI35.12 kg/m205/06/2025 Procedures Procedure Date Ordered Date Performed Result Body Sit e Cerumen Removal - performed 05/06/2025 N/A Encounters Encounter Location Date Provider Diagnosis [facility] [address] [place] [address] 05/06/2025 Quinn Hoy Decreased testostero ne level R79.89 ; Essential (primary) hypertension I10 ; Neuropathy G62.9 ; Cerumen impaction H61.20 and Bilateral impacted cerumen H61.23 [facility] [address] [place] [address] 08/13/2024 Quinn Hoy Dyspnea on exertion R06.09 [place] [address] [place] [address] 02/04/2025 Quinn Hoy Dyspnea on exertion R06.09 [facility] [address] [place] [address] 05/06/2025 Quinn Hoy Anemia D64.9 and Elevated liver enzymes R74.8 [facility] [address] [place] [address] 05/06/2025 Quinn Hoy Anemia D64.9 and Occ ult blood positive stool R19.5 [facility] [address] [place] [address] 05/07/2025 Quinn Hoy [facility] [place] [address] [facility] [place] [address]/01/2025Doug HoyElevated white blood cell count D72.829[facility] [place] [address]/11/2024 Quinn Gross Assessments Encounter Date Diagnosis (ICD Code) Assessment [...] - D72.829)05/06/2025 Neuropathy (ICD-10 - G62.9)stabel no aygtaskrdm15/18/2025Occult blood positive stool (ICD-10 - R19.5)05/06/2025erumen impaction [...] Name:Quinn Palacios Renato, 09:15:00 AM, [address] [place], [address], Insurance Providers Payer Name Payer Address Payer Phone Subscriber Number Group Number Insured Name Patient Relationship to Insured Coverage Start Date Coverage End Date MEDIC[place] [address] [address] [place] [address] [id number] [place] Ojedaelf - patient is the [id number] 2017MMO MEDICARE SUPPLEMENTPO [address] [place] [id number], PhilipSelf - patient is the [id number] 2017 Medical (General) History Medical History History ICD Code hypertension qjmzgcugjinyrfgbxkrkyikaBlpqxdi-Ildqa-Hnrdq atrophyCavus deformity of bilateral feetbilateral foot painNon-pressure chronic ulcer of other part of right foot limited to breakdown of skinL97.511Dyspnea on tuzvvbmxJ19.09Edema legR60.0Over qxqexbH19.5EirrldcrcF26.9Pain in left kneeM25.562Decreased testosterone level R79.89Nondisplaced unspecified fracture of left great toe, initial encounter for closed ihespqnxZ59.405ATinea xisrckD12.6Lipoma of spermatic cordD17.6Hernia, djtfqewfE12.05QmzsznqwI76.19Sexual bpwyfamsldqU98FbrirhqcoujU87.9Xanthelasma H02.60Surgical History Surgery Date(Month/Year) colonoscopy Dr Jacobson 07/10/25 Hernia Repair Foot Surgery- Dr. Schneider01/2023
--- OUTSIDE RECORDS SUMMARY | 2025-07-31 09:03 | XMS_ITS | Patient Health Record ---
Author Organization [facility] Address [address] [place] [address] Care Team Providers Care Water Treatment Operator Name Role Phone Brock Gross Primary Care Provider [facility] [phone] Reason For Referral No Information Medications Medication SIG (Take, Route, Frequency, Duration) Notes Start Date End Date Status levothyroxine ActivedoxazosinActiveMobic 15 mg1 tab(s) orally once a day; Duration: 42 days 4Active Social History Tobacco Use: Social History Observation Description Date Details (start date - stop date) Never Smoker NA - NA AUDIT-C (Standard) Question Answer Notes Did you have a drink containing alcohol in the p ast year? No Bxqxvo9CewyrofxxcxzxkSdduagmsHbteysy Control (Standard) Question Answer Notes Tobacco use: Nonsmoker Plan Of Treatment Pending Test Test Name Order Date SCC- HAND 3 VIEW RIGHT 75985 05/28/2024 Insurance Providers Payer Name Payer Address Payer Phone Subscriber Number Group Number Insured Name Patient Relationship to Insured Coverage Start Date Coverage End [place] [address] [place] [address] [id number] ARMANDO MARVINelf - patient is the insuredOhio State University [facility] [place] [id number], PHILIPSelf - patient is the insured
--- OUTSIDE RECORDS SUMMARY | 2025-07-31 09:45 | XMS_ITS | CCD ---
Author Organization [facility] Care Team Providers Care Senior Applications Architect Name Role Phone CHEIKH ., DR NARANJO [...] Admitting Unavailable Marcella Gross Primary Care Physician [phone] Chirag STINSON Attending Unavailable Marcella Gross Referring Unavailable Chirag STINSON Attending Unavailable Allergies Allergy ClassificationReported Allergen(s)Allergy TypeDate of OnsetReaction(s) Facility (1 source)No Known Medication Allergies; Translations: [No Known Medication Allergies]Propensity to adverse reactions (disorder)[facility] Repository Medications Current Medications MedicationDrug Class(es)DatesSig (Normalized)Sig (Original)aspirin 325 mg delayed release oral tablet (1 source)Platelet Aggregation Inhibitor, Nonsteroidal Anti-inflammatory Drug Start: 03-93-6269qxxs 2 tablets by mouth once dailyaspirin 325 mg Oral EC Tab 650 mg = 2 tab(s), Oral, Daily, Refills(s) 0 Start Date: 05/15/25 Status:Ordered Repeat number: 1doxazosin 4 mg oral tablet (3 sources)alpha-Adrenergic BlockerStart: 19-32-3351ywky 1 tablet by mouth once dailydoxazosin 4 mg Tab 4 mg = 1 tab(s), Oral, Daily, Refills(s) 0 Start Date: 05/15/25 Status: Ordered Repeat number: 1Start: 80-01-0677Yieajfksu Active MG PO April 06, 2024 12:00amferrous sulfate 325 mg oral tablet (1 source)Start: 97-58-1609axtd 1 tablet by mouth twice dailyferrous sulfate 325 mg Tab 325 mg = 1 tab(s), Oral, BID, Refills(s) 0 Start Date: 06/04/25 Status: Or dered Repeat number: 1levothyroxine sodium 0.075 mg oral tablet (3 sources)l-ThyroxineStart: 78-32-0390bcir 1 tablet by mouth once daily levothyroxine 75 mcg (0.075 mg) Tab 75 mcg = 1 tab(s), Oral, Daily, Refills(s) 0 Start Date: 05/15/25 Status: Ordered Repeat number: 1Start: 04-06-2024 Levothyroxine Active MCG PO April 06, 2024 12:00ammagnesium oxide 500 mg oral tablet (3 sources)Start: 21-02-3879hpqb 1 tablet by mouth once dailymagnesium oxide 500 mg oral tablet 500 mg = 1 tab(s), Oral, Daily, Refills(s) 0 Start Date: 06/04/25 Status: Ordered Repeat number: 1Start: 29-98-6811wkbx 500 mg by mouth once daily Magnesium Oxide Active 500 MG PO Daily April 06, 2024 12:00amofloxacin 3 mg/ml ophthalmic solution (2 sources)Quinolone AntimicrobialStart: 84-38-9656sepl 1 drop(s) into the eye(s) four times dailyOfloxacin Active 2 DROPS OPHTHALMIC Four times daily 10 April 06, 2024 12:00am right eyeoxybutynin chloride 5 mg oral tablet (2 sources)Cholinergic Muscarinic AntagonistStart: 46-87-7059Ftmbnlddbr Chloride Active MG PO April 06, 2024 12:00am Problems Active Problems Problem ClassificationProblemDateDocumented DateEpisodic/ChronicAcquired foot deformities (1 source)Other acquired deformities of right foot; Translations: [OTHER ACQUIRED DEFORMITIES RT FOOT]Onset: 30-90-0970RzifymmgJjmkljg ulcer of skin (5 sources)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 breakdown of skin; Translations: [Non-pressure chronic ulcer of right heel and midfoot with fat layer exposed]Onset: 73-14-5886NzakvvkZanatpxzfaxyw of surgical procedures or medical care (4 sources)Other complications of amputation stump; Translations: [OTH COMPLICATIONS AMPUTATION STUMP]Onset: 77-19-9945IsjglhgsRacekxjaaa heart failure; nonhypertensive (1 source)Unspecified diastolic (congestive) heart failure; Translations: [UNSPECIFIED DIASTOLIC HEART FAILURE]Onset: 07-95-2649MepaxkqMtzrvziwiq and other anemia (1 source)Anemia, unspecified; Translations: [ANEMIA UNSPECIFIED]Onset: 69-33-8826SeqbecwiTcpssnrq mellitus with complications (1 source)Type 2 diabetes mellitus with foot ulcer; Translations: [TYPE 2 DM W/FOOT ULCER]Onset: 08-68-9240DpxgztmOdscmbjhv of lipid metabolism (2 sources)Hyperlipidemia, unspecified; Translations: [Hyperlipidemia]Onset: 36-97-528408959721-73-0406RiavydkRicebhuwd hypertension (2 sources)Essential (primary) hypertension; Translations: [Hypertensive disorder]Onset: 489959-47-5925LuuezfoKavhoexfovxu with complications and secondary hypertension (1 source)Hypertensive heart disease with heart failure; Translations: [HTN HEART DISEASE W/HEART FAIL]Onset: 52-34-7033AkhgreiKrjpbqtnyhza; infection of eye (except that caused by tuberculosis or sexually transmitteddisease) (4 sources)Bacterial conjunctivitis; Translations: [Unspecified conjunctivitis] 50-80-0933MaxfmahmLzmky aftercare (1 source)Other care home (current) drug therapy; Translations: [OTH CARE HOME CURRENT DRUG THERAPY]Onset: 96-20-6390HqiezljrZuene endocrine disorders (1 source)Testicular gdwlnmaqcgla16-69-3238QavocsyHuasu gastrointestinal disorders (1 source)Abnormal feces; Translations: [Other fecal abnormalities]Onset: 84-14-1562OjzvmemqMkkox gastrointestinal disorders (2 sources)Occult blood in -47-7930AdnljfhrFouvs lower respiratory disease (4 sources)Dyspnea, unspecified; Translations: [DYSPNEA UNSPECIFIED]Onset: 06-63-8469WwoohomhPczyx lower respiratory disease (4 sources)Other forms of dyspnea; Translations: [OTHER FORMS OF DYSPNEA]Onset: 69-75-2845MykgghoiEuewu nervous system disorders (1 source)Polyneuropathy, unspecified; Translations: [POLYNEUROPATHY UNSPECIFIED]Onset: 14-02-2163QbleztrCjome nervous system disorders (1 source)Hereditary motor and sensory defkelgslb46-39-2324KwshvzrOpjkc nervous system disorders (1 source)Wrkssydjgg11-07-9851DehadydHyaao nutritional; endocrine; and metabolic disorders (1 source)Body mass index 30+ - iiwmuku00-61-9851EdzejgdCblwm nutritional; endocrine; and metabolic disorders (1 source)Obese class ANX25-94-7808HcwplfcYmxof skin disorders (1 source)Epidermal thickening, unspecified; Translations: [EPIDERMAL THICKENING UNSPECIFIED]Onset: 91-90-7330KmrkpppqFhkvfwpo codes; unclassified (1 source)Localized edema; Translations: [LOCALIZED EDEMA]Onset: 01-06-2023 EpisodicThyroid disorders (5 sources)Hypothyroidism, unspecified; Translations: [Hypothyroidism]Onset: 91-76-0797RkjlapeNuoqdnlwbcva (1 source)Chronic ulcer of left jybg83-46-3259 Past or Other Problems Problem ClassificationProblemDateDocumented DateEpisodic/ChronicMalaise and fatigue (1 source)Other fatigue; Translations: [OTHER FATIGUE]Onset: 55-55-7260Zncirjrb Other screening for suspected conditions (not mental disorders or infectious disease) (6 sources)Other specified abnormal findings of blood chemistry; Translations: [Encounter for screening for malignant neoplasm of prostate]Onset: 04-09-2022 Episodic Results Test NameValueInterpretationReference RangeFacilityAmbulatory Visit Summaryon 65-06-6761Sfbtnuxdax Visit SummaryAmbulatory Visit Summary SILVINO OJEDA :1950 [...] are currently receiving treatment for. BMI 35.0-35.9,adult Nnxxtgb-Mytnz-Jqxer disease Chronic ulcer of left heel Class [...] signed up for this yet, please contact [employer] at [phone] to get signed up today. Language Information Language assistance services are available as needed. [facility] 98-14-6522QVbnkmhrw: [id number] Received: 04/30/24 Status: CASS Moore Num: [id number] Spec Type: Impression Subm Dr: Marcella Gross MD Tissues: PATHPER Procedures: PATHREVIEW Age/ Patient Sex Location Account Attending Physician Silvino Ojeda 74/M [facility] [id number] Marcella Gross MD SPEC NUM: [id number] RECD: 04/30/24 STATUS: CASS MOORE NUM: [id number] KAREN: 04/27/[address]: Marcella Gross MD ENTERED: 04/30/[address] [facility] [address]: SPEC TYPE: Impression DEPT: ALEXSANDRA Cervantes ENTERED BY: [id number] RECV BY: [id number] ORDERED: PATHREVIEW ORDERED: PATHREVIEW Pathologist Review Abnormal [...] shifted granulocytes, or granulocytic dysplasia observed CPT: 39433 Specimen: [id number] Received: 04/30/24 Status: CASS Moore Num: [id number] Spec Type: Impression Subm Dr: Marcella Gross MD Tissues: PATHPER Procedures: PATHREVIEW Patient: Silvino Ojeda [id number] (Continued) Signed (signature on file) Celia Irving MD 04/30/[address] [place] [address] Physician GroupCULTURE OTHERon 78-47-9609IKCSWYV OTHER Isolate 1 Staphylococcus aureus Light growth [...] <=0.5 S F Trimethoprim/Sulfamethoxazole <=10 S FNormalThe [facility] HospitalComment on above:Performed By: #### LIPID, T4, TSH, FT3, CMP #### [facility] [address] [place] [address] Dr. Maggy MatosNGWANDA CULTUREon 29-10-2007Xkpucv StainFinal [facility] HospitalComment on above:Performed By: #### LIPID, T4, TSH, FT3, CMP #### [facility] [address] [place] [address] Dr. Maggy Hamilton [address] [place], [place] [address]Comment on above:Result Comment: SUDHIR/Calcofluor preparation: no fungus observed.Performed By: #### LIPID, T4, TSH, FT3, CMP #### [facility] [address] [place] [address] Dr. Maggy IrvingACID FAST SMEAR AND CXon 67-43-2639Mjso Fast SmearNegativeNoBluffton HospitalComment on above:Performed By: #### AFB #### [facility] [address] [place] [address] Dr. Maggy Alberts Specimen ProcessingTissuProtestant Hospital Comment on above:Performed By: #### AFB #### [facility] [address] [place] [address] Dr. Maggy Greenberg ANAEROBICon 63-57-2598FZKCOBT ANAEROBICIsolate 1 Alyceia magna Light growth [facility] on above:Result Comment: EVIDENCE BASED PRACTICE BY [facility] HAS DEMONSTRATED THAT FINEGREGORIOIA SPECIES ARE ROUTINELY SUSCEPTIBLE TO PIPERACILLIN-TAZOBACTAM, CEFOXITIN, ERTAPENEM, IMIPENEM METRONIDAZOLE AND VARIABLY RESISTANT TO CLINDAMYCIN.Performed By: #### LIPID, T4, TSH, FT3, CMP #### [facility] [address] [address] [address] Maggy Potts STAINon 99-08-9669KQJWZXMKSN ORGANISMS [facility]Com[facility] on above:Performed By: #### GSTAIN #### [facility] [address] [place] [address] Dr. Maggy SolisPHTHEROIDSLake County Memorial Hospital - WestComapex medical center on above:Performed By: #### GSTAIN #### [facility] [address] [address] [address] Maggy SpencerLIALSLake County Memorial Hospital - WestComapex medical center on above:Performed By: #### GSTAIN #### [facility] [address] [address] [address] Maggy GibsonAL ELEMENTSLake County Memorial Hospital - WestComapex medical center on above: Performed By: #### GSTAIN #### [facility] [address] [address] [address] Maggy Potts NEG [facility] on above: Performed By: #### GSTAIN #### [facility] [address] [place] [address] Dr. Maggy Potts NEG DIPPLOCOCCILake County Memorial Hospital - WestComapex medical center on above: Performed By: #### GSTAIN #### [facility] [address] [place] [address] Dr. Maggy Potts POS BACILLILake County Memorial Hospital - WestComapex medical center on above: Performed By: #### GSTAIN #### [facility] [address] [address] [address] Maggy Potts POSITIVE COCCINoSumma Health Akron CampusComment on above: Performed By: #### GSTAIN #### [facility] [address] [address] [address] Maggy Potts STAIN MQBTRY4si Metatarsal BoneLake County Memorial Hospital - West Comment on above:Performed By: #### GSTAIN #### [facility] [address] [address] [address] Maggy IrvingGS_DIPTHLake County Memorial Hospital - WestComment on above:Performed By: #### GSTAIN #### [facility] [address] [address] [address] Maggy IrvingWBCRARENormalFostoria City HospitalComment on above:Performed By: #### GSTAIN #### [facility] [address] [address] [address] Maggy IrvingPOINT OF CARE GLUCOSEon 28-50-6820Bhtsqpi [Mass/Vol]114 mg/dL Critically nbza44-882PzfFostoria City HospitalComment on above:Performed By: #### POCGLUC #### [facility] [address] [address] [address] Maggy IrvingGlucose [Mass/Vol]122 mg/dLCritically fkcs56-100VqpFostoria City HospitalComment on above:Performed By: #### POCGLUC #### [facility] [address] [address] [address] Maggy IrvingPROF CHEM 8 (BAS METB)on 40-41-3540Bilgm gap [Moles/Vol]12.0 mmol/LNormalFostoria City HospitalComment on above:Performed By: #### LIPID, T4, TSH, FT3, CMP #### [facility] [address] [address] [address] Maggy IrvingCalcium [Mass/Vol]8.7 mg/dLNormal8.5-10.1F[facility] Hospital Comment on above:Performed By: #### LIPID, T4, TSH, FT3, CMP #### [facility] [address] [address] [address] Maggy IrvingChloride [Moles/Vol]104 mmol/QAnsuaq88-852MfnFostoria City Hospital Comment on above:Performed By: #### LIPID, T4, TSH, FT3, CMP #### [facility] [address] [address] [address] Maggy IrvingCO2 [Moles/Vol]28.1 mmol/OKuchgg64.0-32.0[facility] Comment on above:Performed By: #### LIPID, T4, TSH, FT3, CMP #### [facility] [address] [address] [address] Maggy IrvingCreatinine [Mass/Vol]0.80 mg/dLNormal0.70-1.30The [facility] Memorial HospitalComment on above:Performed By: #### LIPID, T4, TSH, FT3, CMP #### [facility] [address] [place] [address] Dr. Maggy AndradeGFR-AF CHINESE>60Normal>=60The [facility] HospitalComment on above:Performed By: #### LIPID, T4, TSH, FT3, CMP #### [facility] [address] [place] [address] Dr. Maggy AndradeGFR-NON AF CHINESE>60Normal>=60Fostoria City HospitalComment on above:Performed By: #### LIPID, T4, TSH, FT3, CMP #### [facility] [address] [place] [address] Dr. Maggy IrvingGlucose [Mass/Vol]129 mg/dLCritically ozxe17-738Fnc [facility] HospitalComment on above:Performed By: #### LIPID, T4, TSH, FT3, CMP #### [facility] [address] [place] [address] Dr. Maggy IrvingPotassium [Moles/Vol]4.1 mmol/LNormal3.5-5.1[facility] Comment on above:Performed By: #### LIPID, T4, TSH, FT3, CMP #### [facility] [address] [place] [address] Dr. Maggy IrvingSodium [Moles/Vol]140 mmol/BDmdiyu104-292PatFostoria City Hospital Comment on above:Performed By: #### LIPID, T4, TSH, FT3, CMP #### [facility] [address] [address] [address] Maggy Carlos nitrogen [Mass/Vol]20.0 mg/dLCritically high7.0-18.0The [facility] HospitalComment on above:Performed By: #### LIPID, T4, TSH, FT3, CMP #### [facility] [address] [place] [address] Dr. Maggy Carlos nitrogen/Creatinine [Mass ratio]25.0 mg/mgNormalThe [facility] HospitalComment on above:Performed By: #### LIPID, T4, TSH, FT3, CMP #### [facility] [address] [place] [address] Dr. Maggy ReyesEE T3on 45-97-1319KZLC T33.24 pg/mlLNormal2.18-3.98The [facility] HospitalComment on above:Performed By: #### LIPID, T4, TSH, FT3, CMP #### [facility] [address] [place] [address] Dr. Maggy IrvingT4on 55-42-2799V1 [Mass/Vol]9.10 ug/dLNormal4.50-12.10The [facility] HospitalComment on above:Performed By: #### LIPID, T4, TSH, FT3, CMP #### [facility] [address] [place] [address] Dr. Maggy IrvingTSHoroxy 02-68-1805LDN5.957 uIU/mLCritically high0.358-3.740The [facility] HospitalComment on above:Performed By: #### LIPID, T4, TSH, FT3, CMP #### [facility] [address] [place] [address] Dr. Maggy IrvingNM STRESS/REST MULTIon 56-59-3770YH STRESS/REST MULTIPatient: SILVINO OJEDA Exam Date: 01/03/2023 : 1950 Gender:M Ordering : DR MARCELLA GROSS . Admission #: [id number] Family : Order #: [id number] CLICK HERE TO VIEW EXAM RADIOLOGY REPORT [...] by: Olvin Khanna M.D. on 01/04/2023 at 07:45[facility] - WestECHOCARDIO M/2D COMPLETEon 14-89-2767FCRSNYKSTA M/2D COMPLETEPatient: SILVINO OJEDASebas Exam Date: 12/21/2022 : 1950 Gender:M Ordering : DR MARCELLA GROSS . Admission #: [id number] Family : Order #: [id number] CLICK HERE TO VIEW EXAM ECHOCARDIOGRAM REPORT [...] by: Dez Ling M.D. on 12/23/2022 at 18:05[facility] Hospital - WestBNPon 59-25-7800Lcxfneyunrn peptide B (Bld) [Mass/Vol]37.0 pg/mLNormal <=900.0The [facility] HospitalComment on above:Performed By: #### LIPID, T4, TSH, FT3, CMP #### [facility] [address] [place] [address] Dr. Maggy Crocker AUTO DIFFon 06-79-8632CUBA #0.0 103/ulNormal0.0-0.1The [facility] HospitalComment on above:Performed By: #### LIPID, T4, TSH, FT3, CMP #### [facility] [address] [place] [address] Dr. Maggy IrvingBasophils/100 WBC (Bld)0.2 %Normal0.2-2.0The [facility] Comment on above:Performed By: #### LIPID, T4, TSH, FT3, CMP #### [facility] [address] [place] [address] Dr. Maggy Zurita #0.2 103/ulNormal0.0-0.7The [facility] HospitalComment on above: Performed By: #### LIPID, T4, TSH, FT3, CMP #### [facility] [address] [place] [address] Dr. Maggy Andradeosinophils/100 WBC (Bld)3.7 %Normal0.9-7.0The [facility] Comment on above:Performed By: #### LIPID, T4, TSH, FT3, CMP #### [facility] [address] [place] [address] Dr. Maggy Andraderythrocyte distribution width (RBC) [Ratio]11.9 %Xaccac04.0-15.0 The [facility] HospitalComment on above:Performed By: #### LIPID, T4, TSH, FT3, CMP #### [facility] [address] [place] [address] Dr. Maggy IrvingHematocrit (Bld) [Volume fraction]39.7 %Critically low42.0-54.0 The [facility] HospitalComment on above:Performed By: #### LIPID, T4, TSH, FT3, CMP #### [facility] [address] [place] [address] Dr. Maggy IrvingHemoglobin (Bld) [Mass/Vol]14.0 g/jLYwuvgo75.0-18.0The [facility] Hospitalment on above:Performed By: #### LIPID, T4, TSH, FT3, CMP #### [facility] [address] [place] [address] Dr. Maggy Cyr #0.02 10e3/ulNormal0.00-0.03The [facility] Hospitalment on above:Performed By: #### LIPID, T4, TSH, FT3, CMP #### [facility] [address] [place] [address] Dr. Maggy Cyr %0.5 %Normal0.0-0.5The [facility] HospitalComment on above: Performed By: #### LIPID, T4, TSH, FT3, CMP #### [facility] [address] [address] [address] Maggy Ordaz #0.9 103/ulCritically low1.2-3.8The [facility] Comment on above:Performed By: #### LIPID, T4, TSH, FT3, CMP #### [facility] [address] [place] [address] Dr. Maggy Heltonhocytes/100 WBC (Bld)21.1 %Huvdxe31.5-60.0The [facility] HospitalComment on above:Performed By: #### LIPID, T4, TSH, FT3, CMP #### [facility] [address] [place] [address] Dr. Maggy Prajapati DIFF REQNONormalThe [facility] HospitalComment on above: Performed By: #### LIPID, T4, TSH, FT3, CMP #### [facility] [address] [place] [address] Dr. Maggy Cunningham (RBC) [Entitic mass]30.5 ktGclsug00.9-34.0The [facility] HospitalComment on above:Performed By: #### LIPID, T4, TSH, FT3, CMP #### [facility] [address] [place] [address] Dr. Maggy Cunningham (RBC) [Mass/Vol]35.3 g/dLCritically high29.9-35.2The [facility] HospitalComment on above:Performed By: #### LIPID, T4, TSH, FT3, CMP #### [facility] [address] [place] [address] Dr. Maggy Cunningham (RBC) [Entitic vol]86.5 qJOklrcy74.0-94.0The [facility] on above:Performed By: #### LIPID, T4, TSH, FT3, CMP #### [facility] [address] [place] [address] Dr. Maggy Pablo #0.4 103/ulNormal0.3-0.8The [facility] Hospitalment on above:Performed By: #### LIPID, T4, TSH, FT3, CMP #### [facility] [address] [place] [address] Dr. Maggy Batesocytes/100 WBC (Bld)8.7 %Normal1.7-12.0The [facility] Comment on above:Performed By: #### LIPID, T4, TSH, FT3, CMP #### [facility] [address] [place] [address] Dr. Maggy Huffman #2.9 103/ulNormal1.4-6.5The [facility] Hospitalment on above:Performed By: #### LIPID, T4, TSH, FT3, CMP #### [facility] [address] [place] [address] Dr. Maggy Barbourutrophils/100 WBC (Bld)65.8 %Vdmrex00.0-75.0The [facility] Hospitalment on above:Performed By: #### LIPID, T4, TSH, FT3, CMP #### [facility] [address] [place] [address] Dr. Maggy IrvingPlatelet mean volume (Bld) [Entitic vol]9.9 fLNormal9.5-13.5The [facility] on above:Performed By: #### LIPID, T4, TSH, FT3, CMP #### [facility] [address] [place] [address] Dr. Maggy IrvingPLT128 103/ulCritically jun391-790Pvd [facility] Hospitalment on above:Performed By: #### LIPID, T4, TSH, FT3, CMP #### [facility] [address] [place] [address] Dr. Maggy IrvingRBC4.59 106/ulCritically low4.70-6.10The [facility] on above:Performed By: #### LIPID, T4, TSH, FT3, CMP #### [facility] [address] [place] [address] Dr. Maggy IrvingWBC4.4 103/ulNormal4.0-11.0The [facility] on above: Performed By: #### LIPID, T4, TSH, FT3, CMP #### [facility] [address] [place] [address] Dr. Maggy Gresham THYROXINE INDEX T7on 06-21-4342NDI0.70Hhvgqh5.30-4.50[facility] on above:Performed By: #### LIPID, T4, TSH, FT3, CMP #### [facility] [facility] [address] [place] [address] Dr. Maggy IrvingT3U34.0 %Pygtsd09.0-40.0The [facility] on above: Performed By: #### LIPID, T4, TSH, FT3, CMP #### [facility] [address] [place] [address] Dr. Maggy IrvingT4 [Mass/Vol]8.00 ug/dLNormal4.50-12.10ThMary [facility] Comment on above:Performed By: #### LIPID, T4, TSH, FT3, CMP #### [facility] [address] [place] [address] Dr. Maggy Cervantes [id number] [Mass/Vol]134.0 ug/wWNeqyns65.0-175.0[facility] on above:Performed By: #### LIPID, T4, TSH, FT3, CMP #### [facility] [address] [place] [address] Dr. Maggy IrvingLIPID PROFILEon [id number]-HDL RATIO NORMSEE BELOWLake County Memorial Hospital - WestComment on above:Result Comment: 3.3 - 4.4 LOW RISK 4.4 - 7.1 AVERAGE RISK 7.1 - 11.0 MODERATE RISK >11.0 HIGH RISKPerformed By: #### LIPID, T4, TSH, FT3, CMP #### [facility] [address] [place] [address] Dr. Maggy IrvingCholesterol [Mass/Vol]180 mg/dLNormal<=200The [facility] Comment on above:Performed By: #### LIPID, T4, TSH, FT3, CMP #### [facility] [address] [address] [address] Maggy Bellamy in HDL [Mass/Vol]37 mg/dLCritically yny92-38Fjb [facility] on above:Performed By: #### LIPID, T4, TSH, FT3, CMP #### [facility] [address] [place] [address] Dr. Maggy Bangesterol in LDL [Mass/Vol]95.2 mg/dLNoOhioHealth Berger Hospital on above:Performed By: #### LIPID, T4, TSH, FT3, CMP #### [facility] [address] [place] [address] Dr. Maggy Bellamy.total/Cholesterol in HDL [Mass ratio]4.9 {ratio} NormalSumma [facility] on above:Performed By: #### LIPID, T4, TSH, FT3, CMP #### [facility] [address] [place] [address] Dr. Maggy Garcia NORMAL> or = 60 mg/dl - LOW CARDIOVASCULAR RISK <40 mg/dl - HIGH CARDIOVASCULAR RISKClermont County Hospital on above:Performed By: #### LIPID, T4, TSH, FT3, CMP #### [facility] [address] [place] [address] Dr. Mgagy Mullen CALC NORMALSEE BELOWLake County Memorial Hospital - WestComapex medical center on above:Result Comment: <100 mg/dl OPTIMAL 100 - 129 mg/dl NEAR OR ABOVE OPTIMAL 130 - 159 mg/dl BORDERLINE HIGH 160 - 189 mg/dl HIGH >190 mg/dl VERY HIGH Performed By: #### LIPID, T4, TSH, FT3, CMP #### [facility] [address] [place] [address] Dr. Maggy IrvingTriglyceride [Mass/Vol]239 mg/dLCritically high<=150[facility] on above:Performed By: #### LIPID, T4, TSH, FT3, CMP #### [facility] [address] [place] [address] Dr. Yilan ChangVLDL CALC47.8 mg/dLNormalThe [facility] HospitalComment on above: Performed By: #### LIPID, T4, TSH, FT3, CMP #### [facility] [address] [address] [address] Maggy Carrasco 14(COMP METB)on [id number] [Mass/Vol]3.8 g/dLNormal 3.4-5.0The [facility] HospitalComment on above:Performed By: #### LIPID, T4, TSH, FT3, CMP #### [facility] [address] [address] [address] Maggy IrvingAlbumin/Globulin [Mass ratio]1.1 {ratio}NormalThe [facility] Hospitalment on above:Performed By: #### LIPID, T4, TSH, FT3, CMP #### [facility] [address] [place] [address] Dr. Maggy Cutler [Catalytic activity/Vol]53 U/PAglxxf95-846Xue [facility] Hospitalment on above:Performed By: #### LIPID, T4, TSH, FT3, CMP #### [facility] [address] [place] [address] Dr. Maggy Cloud [Catalytic activity/Vol]43 U/FTlzasu41-71Hcq [facility] Hospitalment on above:Performed By: #### LIPID, T4, TSH, FT3, CMP #### [facility] [address] [place] [address] Dr. Maggy Alarcon gap [Moles/Vol]12.2 mmol/LNormalThe [facility] Comment on above:Performed By: #### LIPID, T4, TSH, FT3, CMP #### [facility] [address] [place] [address] Dr. Maggy Martinez [Catalytic activity/Vol]22 U/TTtoimc44-11Nkd [facility] Hospitalment on above:Performed By: #### LIPID, T4, TSH, FT3, CMP #### [facility] [address] [place] [address] Dr. Maggy Fallonirubin [Mass/Vol]0.6 mg/dLNormal0.2-1.0The [facility] Comment on above:Performed By: #### LIPID, T4, TSH, FT3, CMP #### [facility] [address] [place] [address] Dr. Maggy IrvingCalcium [Mass/Vol]8.9 mg/dLNormal8.5-10.1The [facility] Comment on above:Performed By: #### LIPID, T4, TSH, FT3, CMP #### [facility] [address] [place] [address] Dr. Maggy IrvingChloride [Moles/Vol]104 mmol/CCeprsa03-794Tnc [facility] Comment on above:Performed By: #### LIPID, T4, TSH, FT3, CMP #### [facility] [address] [place] [address] Dr. Maggy IrvingCO2 [Moles/Vol]28.8 mmol/FYpsxgj83.0-32.0The [facility] Comment on above:Performed By: #### LIPID, T4, TSH, FT3, CMP #### [facility] [address] [place] [address] Dr. Maggy IrvingCreatinine [Mass/Vol]0.83 mg/dLNormal0.70-1.30The [facility] HospitalComment on above:Performed By: #### LIPID, T4, TSH, FT3, CMP #### [facility] [address] [place] [address] Dr. Maggy AndradeGFR-AF CHINESE>60Normal>=60The [facility] HospitalComment on above:Performed By: #### LIPID, T4, TSH, FT3, CMP #### [facility] [address] [place] [address] Dr. Maggy AndradeGFR-NON AF CHINESE>60Normal>=60The [facility] HospitalComment on above:Performed By: #### LIPID, T4, TSH, FT3, CMP #### [facility] [address] [place] [address] Dr. Maggy IrvingGlobulin (S) [Mass/Vol]3.4 g/dLNormalThe [facility] HospitalComment on above:Performed By: #### LIPID, T4, TSH, FT3, CMP #### [facility] [address] [address] [address] Maggy IrvingGlucose [Mass/Vol]116 mg/dLCritically mcgn18-343Uol [facility] Hospitalment on above:Performed By: #### LIPID, T4, TSH, FT3, CMP #### [facility] [address] [address] [address] Maggy IrvingPotassium [Moles/Vol]4.0 mmol/LNormal3.5-5.1The [facility] Comment on above:Performed By: #### LIPID, T4, TSH, FT3, CMP #### [facility] [address] [place] [address] Dr. Maggy IrvingProtein [Mass/Vol]7.2 g/dLNormal6.4-8.2[facility] Comment on above:Performed By: #### LIPID, T4, TSH, FT3, CMP #### [facility] [address] [place] [address] Dr. Maggy IrvingSodium [Moles/Vol]141 mmol/ETiqbsm951-572Ajd [facility] Comment on above:Performed By: #### LIPID, T4, TSH, FT3, CMP #### [facility] [address] [place] [address] Dr. Maggy IrvingUrea nitrogen [Mass/Vol]17.0 mg/dLNormal7.0-18.0The [facility] HospitalComment on above:Performed By: #### LIPID, T4, TSH, FT3, CMP #### [facility] [address] [place] [address] Dr. Maggy Carlos nitrogen/Creatinine [Mass ratio]20.5 mg/mgLake County Memorial Hospital - WestComapex medical center on above:Performed By: #### LIPID, T4, TSH, FT3, CMP #### [facility] [address] [place] [address] Dr. Maggy Pope [id number] uIU/mLCritically high0.358-3.740[facility] HospitalComment on above:Performed By: #### LIPID, T4, TSH, FT3, CMP #### [facility] [address] [place] [address] Dr. Maggy IrvingTESTOSTERONE, TOTALon [id number] [Mass/Vol]390 ng/dL Trauah703-266Bdr [facility] HospitalComment on above:Result Comment: Adult male reference interval is based on a population of healthy nonobese males (BMI <30) between 19 and 39 years old. dave Jacobs.al. JCEM 2017,102;8808-2034. PMID: [id number].Performed By: #### LIPID, T4, TSH, FT3, CMP #### [facility] [address] [place] [address] Dr. Maggy IrvingCBC AUTO DIFFon [id number] #0.0 103/ulNormal0.0-0.1The [facility] HospitalComment on above:Performed By: #### LIPID, T4, TSH, FT3, CMP #### [facility] [address] [place] [address] Dr. Maggy IrvingBasophils/100 WBC (Bld)0.2 %Normal0.2-2.0[facility] Comment on above:Performed By: #### LIPID, T4, TSH, FT3, CMP #### [facility] [address] [place] [address] Dr. Maggy Zurita #0.2 103/ulNormal0.0-0.7The [facility] HospitalComment on above: Performed By: #### LIPID, T4, TSH, FT3, CMP #### [facility] [address] [place] [address] Dr. Maggy Andradeosinophils/100 WBC (Bld)3.1 %Normal0.9-7.0The [facility] Comment on above:Performed By: #### LIPID, T4, TSH, FT3, CMP #### [facility] [address] [place] [address] Dr. Maggy Andraderythrocyte distribution width (RBC) [Ratio]12.3 %Ljjlay16.0-15.0 The [facility] HospitalComment on above:Performed By: #### LIPID, T4, TSH, FT3, CMP #### [facility] [address] [place] [address] Dr. Maggy IrvingHematocrit (Bld) [Volume fraction]41.6 %Critically low42.0-54.0 The [facility] HospitalComment on above:Performed By: #### LIPID, T4, TSH, FT3, CMP #### [facility] [address] [place] [address] Dr. Maggy IrvingHemoglobin (Bld) [Mass/Vol]14.6 g/iWAepfnn44.0-18.0The [facility] HospitalComment on above:Performed By: #### LIPID, T4, TSH, FT3, CMP #### [facility] [address] [place] [address] Dr. Maggy Cyr #0.02 10e3/ulNormal0.00-0.03The [facility] HospitalComment on above:Performed By: #### LIPID, T4, TSH, FT3, CMP #### [facility] [address] [place] [address] Dr. Maggy Cyr %0.4 %Normal0.0-0.5The [facility] HospitalComment on above: Performed By: #### LIPID, T4, TSH, FT3, CMP #### [facility] [address] [place] [address] Dr. Maggy Ordaz #0.9 103/ulCritically low1.2-3.8The [facility] Comment on above:Performed By: #### LIPID, T4, TSH, FT3, CMP #### [facility] [address] [place] [address] Dr. Maggy Heltonhocytes/100 WBC (Bld)17.9 %Critically low20.5-60.0The [facility] HospitalComment on above:Performed By: #### LIPID, T4, TSH, FT3, CMP #### [facility] [address] [place] [address] Dr. Maggy Prajapati DIFF REQNONormalThe [facility] HospitalComment on above: Performed By: #### LIPID, T4, TSH, FT3, CMP #### [facility] [address] [place] [address] Dr. Maggy IrvingBATAVIA [facility] (RBC) [Entitic mass]31.1 dkOtiyoh72.9-34.0The [facility] HospitalComment on above:Performed By: #### LIPID, T4, TSH, FT3, CMP #### [facility] [address] [place] [address] Dr. Maggy IrvingST. [facility]WR[facility] (RBC) [Mass/Vol]35.1 g/nHJvzqhn15.9-35.2The [facility] HospitalComment on above:Performed By: #### LIPID, T4, TSH, FT3, CMP #### [facility] [address] [place] [address] Dr. Maggy Cunningham (RBC) [Entitic vol]88.5 eECwkaua96.0-94.0The [facility] HospitalComment on above:Performed By: #### LIPID, T4, TSH, FT3, CMP #### [facility] [address] [place] [address] Dr. Maggy Pablo #0.4 103/ulNormal0.3-0.8The [facility] HospitalComment on above:Performed By: #### LIPID, T4, TSH, FT3, CMP #### [facility] [address] [place] [address] Dr. Maggy Batesocytes/100 WBC (Bld)8.7 %Normal1.7-12.0The [facility] Comment on above:Performed By: #### LIPID, T4, TSH, FT3, CMP #### [facility] [address] [place] [address] Dr. Maggy Huffman #3.4 103/ulNormal1.4-6.5The [facility] HospitalComment on above:Performed By: #### LIPID, T4, TSH, FT3, CMP #### [facility] [address] [place] [address] Dr. Maggy Alejandraophils/100 WBC (Bld)69.7 %Ibcsnh80.0-75.0The [facility]ment on above:Performed By: #### LIPID, T4, TSH, FT3, CMP #### [facility] [address] [place] [address] Dr. Maggy IrvingPlatelet mean volume (Bld) [Entitic vol]9.9 fLNormal9.5-13.5The [facility] HospitalComment on above:Performed By: #### LIPID, T4, TSH, FT3, CMP #### [facility] [address] [place] [address] Dr. Maggy IrvingPLT121 103/ulCritically rpu982-491Mcs [facility] HospitalComment on above:Performed By: #### LIPID, T4, TSH, FT3, CMP #### [facility] [address] [place] [address] Dr. Maggy IrvingRBC4.70 106/ulNormal4.70-6.10The [facility] HospitalComapex [facility] center on above:Performed By: #### LIPID, T4, TSH, FT3, CMP #### [facility] [address] [place] [address] Dr. Maggy IrvingWBC4.8 103/ulNormal4.0-11.0The [facility] on above: Performed By: #### LIPID, T4, TSH, FT3, CMP #### [facility] [address] [place] [address] Dr. Maggy IrvingFRAME T3on [id number] T33.15 pg/mlLNormal2.18-3.98The [facility] on above:Performed By: #### LIPID, T4, TSH, FT3, CMP #### [facility] [address] [place] [address] Dr. Maggy IrvingGLYCOHEMOGLOBIN A1Con [id number] RECOMMENDATIONSEE BELOWNormal The [facility] HospitalComment on above:Result Comment: ADA RECOMMENDED LIMIT 4.0 - 6.0 ADA THERAPEUTIC TARGET < 7.0 ACTION SUGGESTED > 7.0Performed By: #### LIPID, T4, TSH, FT3, CMP #### [facility] [address] [address] [address] Maggy IrvingGlucose [Mass/Vol]123 mg/dLNoSumma Health Akron CampusComment on above:Performed By: #### LIPID, T4, TSH, FT3, CMP #### [facility] [address] [address] [address] Maggy IrvingHbA1c (Bld) [Mass fraction]5.9 %Normal4.5-6.2The [facility] HospitalComment on above:Performed By: #### LIPID, T4, TSH, FT3, CMP #### [facility] [address] [place] [address] Dr. Maggy PittsID PROFILEon [id number]-HDL RATIO NORMSEE [facility] Medical CenterComment on above:Result Comment: 3.3 - 4.4 LOW RISK 4.4 - 7.1 AVERAGE RISK 7.1 - 11.0 MODERATE RISK >11.0 HIGH RISKPerformed By: #### LIPID, T4, TSH, FT3, CMP #### [facility] [address] [place] [address] Dr. Maggy Bangesterol [Mass/Vol]174 mg/dLNormal<=200The [facility] Comment on above:Performed By: #### LIPID, T4, TSH, FT3, CMP #### [facility] [address] [place] [address] Dr. Maggy Bangesterol in HDL [Mass/Vol]36 mg/dLCritically juh73-63Vwj [facility] HospitalComment on above:Performed By: #### LIPID, T4, TSH, FT3, CMP #### [facility] [address] [place] [address] Dr. Maggy Bangesterol in LDL [Mass/Vol]114.4 mg/dLNoSumma Health Akron CampusComment on above:Performed By: #### LIPID, T4, TSH, FT3, CMP #### [facility] [address] [place] [address] Dr. Maggy IrvingCholesterol.total/Cholesterol in HDL [Mass ratio]4.8 {ratio} NormalThe [facility] HospitalComment on above:Performed By: #### LIPID, T4, TSH, FT3, CMP #### [facility] [address] [address] [address] Maggy Garcia NORMAL> or = 60 mg/dl - LOW CARDIOVASCULAR RISK <40 mg/dl - HIGH CARDIOVASCULAR RISKNoSumma Health Akron CampusComment on above:Performed By: #### LIPID, T4, TSH, FT3, CMP #### [facility] [address] [address] [address] Maggy IrvingLDL CALC NORMALSEE BELOWNoSumma Health Akron CampusComment on above:Result Comment: <100 mg/dl OPTIMAL 100 - 129 mg/dl NEAR OR ABOVE OPTIMAL 130 - 159 mg/dl BORDERLINE HIGH 160 - 189 mg/dl HIGH >190 mg/dl VERY HIGH Performed By: #### LIPID, T4, TSH, FT3, CMP #### [facility] [address] [address] [address] Maggy IrvingTriglyceride [Mass/Vol]118 mg/dLNormal<=150The [facility] Comment on above:Performed By: #### LIPID, T4, TSH, FT3, CMP #### [facility] [address] [address] [address] Maggy IrvingVLDL CALC23.6 mg/dLNoSumma Health Akron CampusComment on above: Performed By: #### LIPID, T4, TSH, FT3, CMP #### [facility] [address] [place] [address] Dr. Maggy IrvingOCC BLD IMMUNO SCREENon [id number] BLOODNegativeNormal NEGATIVEThe [facility] HospitalComapex medical center on above:Performed By: #### OBSCRN #### [facility] [address] [place] [address] Dr. Maggy IrvingPROF 14(COMP METB)on [id number] [Mass/Vol]3.6 g/dLNormal 3.4-5.0The [facility] HospitalComment on above:Performed By: #### LIPID, T4, TSH, FT3, CMP #### [facility] [address] [place] [address] Dr. Maggy IrvingAlbumin/Globulin [Mass ratio]1.1 {ratio}NormalThe [facility] Hospitalment on above:Performed By: #### LIPID, T4, TSH, FT3, CMP #### [facility] [address] [place] [address] Dr. Maggy Cutler [Catalytic activity/Vol]47 U/MYpdkmx84-417Sfi [facility] on above:Performed By: #### LIPID, T4, TSH, FT3, CMP #### [facility] [address] [place] [address] Dr. Maggy Cloud [Catalytic activity/Vol]31 U/LEplkhc24-06Tiz [facility] HospitalComment on above:Performed By: #### LIPID, T4, TSH, FT3, CMP #### [facility] [address] [place] [address] Dr. Maggy Alarcon gap [Moles/Vol]10.2 mmol/LNormalThe [facility] Comment on above:Performed By: #### LIPID, T4, TSH, FT3, CMP #### [facility] [address] [place] [address] Dr. Maggy Martinez [Catalytic activity/Vol]17 U/LNqgmyc59-20Irr [facility] on above:Performed By: #### LIPID, T4, TSH, FT3, CMP #### [facility] [address] [place] [address] Dr. Maggy IrvingBilirubin [Mass/Vol]0.6 mg/dLNormal0.2-1.0The [facility] Comment on above:Performed By: #### LIPID, T4, TSH, FT3, CMP #### [facility] [address] [place] [address] Dr. Maggy IrvingCalcium [Mass/Vol]8.1 mg/dLCritically low8.5-10.1The [facility] HospitalComment on above:Performed By: #### LIPID, T4, TSH, FT3, CMP #### [facility] [address] [address] [address] Maggy IrvingChloride [Moles/Vol]105 mmol/GKypslb29-600Daf [facility] Comment on above:Performed By: #### LIPID, T4, TSH, FT3, CMP #### [facility] [address] [place] [address] Dr. Maggy IrvingCO2 [Moles/Vol]29.6 mmol/ISjocbq11.0-32.0The [facility] Comment on above:Performed By: #### LIPID, T4, TSH, FT3, CMP #### [facility] [address] [place] [address] Dr. Maggy IrvingCreatinine [Mass/Vol]0.89 mg/dLNormal0.70-1.30The [facility] HospitalComment on above:Performed By: #### LIPID, T4, TSH, FT3, CMP #### [facility] [address] [place] [address] Dr. Maggy AndradeGFR-AF CHINESE>60Normal>=60The [facility] HospitalComment on above:Performed By: #### LIPID, T4, TSH, FT3, CMP #### [facility] [address] [place] [address] Dr. Maggy Carlson-NON AF CHINESE>60Normal>=60The [facility] HospitalComment on above:Performed By: #### LIPID, T4, TSH, FT3, CMP #### [facility] [address] [place] [address] Dr. Maggy IrvingGlobulin (S) [Mass/Vol]3.2 g/dLNormalThe [facility] HospitalComment on above:Performed By: #### LIPID, T4, TSH, FT3, CMP #### [facility] [address] [place] [address] Dr. Maggy IrvingGlucose [Mass/Vol]110 mg/dLCritically sfwf96-304Mqa [facility] HospitalComment on above:Performed By: #### LIPID, T4, TSH, FT3, CMP #### [facility] [address] [address] [address] Maggy IrvingPotassium [Moles/Vol]3.8 mmol/LNormal3.5-5.1The [facility] Comment on above:Performed By: #### LIPID, T4, TSH, FT3, CMP #### [facility] [address] [place] [address] Dr. Maggy IrvingProtein [Mass/Vol]6.8 g/dLNormal6.4-8.2The [facility] Comment on above:Performed By: #### LIPID, T4, TSH, FT3, CMP #### [facility] [address] [place] [address] Dr. Maggy IrvingSodium [Moles/Vol]141 mmol/ENbeqlm912-568Asn [facility] Comment on above:Performed By: #### LIPID, T4, TSH, FT3, CMP #### [facility] [address] [place] [address] Dr. Maggy IrvingUrea nitrogen [Mass/Vol]17.0 mg/dLNormal7.0-18.0The [facility] HospitalComment on above:Performed By: #### LIPID, T4, TSH, FT3, CMP #### [facility] [address] [place] [address] Dr. Maggy Carlos nitrogen/Creatinine [Mass ratio]19.1 mg/mgNormalThe [facility] HospitalComment on above:Performed By: #### LIPID, T4, TSH, FT3, CMP #### [facility] [address] [place] [address] Dr. Maggy Polanco 36-48-4700A9 [Mass/Vol]7.90 ug/dLNormal4.50-12.10The [facility] HospitalComment on above:Performed By: #### LIPID, T4, TSH, FT3, CMP #### [facility] [address] [place] [address] Dr. Maggy Pope 95-68-1928QJM3.949 uIU/mLCritically high0.358-3.740The [facility] HospitalComment on above:Performed By: #### LIPID, T4, TSH, FT3, CMP #### [facility] [address] [address] [address] Maggy Irving Vital Signs Date TimeVital SignValuePerforming XwrfkikbbNcdlnzpv41-55-7786 09:43-0400Body vcwquz920.8 cm[facility]20[facility] 09:43-0400Body mass index (BMI) [Ratio]34.4 kg/s3UyztkpmgxLouis [facility]07-19-2024 09:43-0400Body .3 [degF][facility]07-19-2024 09:43-0400Body ryoetj414.08 kgLouis [facility]07-19-2024 09:43-0400Diastolic blood ubaaupkh03 mm[Hg][facility] 04-06-2024 09:43-0400Heart rate87 /[facility] 04-06-2024 09:43-0400Respiratory rate18 /[facility] 04-06-2024 09:43-6534TnC9% (BldA) [Mass fraction]96 %[facility]07-19-2024 09:43-0400Systolic blood zrfwnool654 mm[Hg][facility] Encounters Encounter DateEncounter TypeCare ProviderFacilityStart: 07-10-2025 End: 07-69-5212mpwcvkwtxcVvaakyo R NILLFacility:CD:[id number]: 06-04-2025 End: 72-87-3375cqudsjpgmoKcbmlrc R NILLFacility:[facility]: 06-04-2025 End: 22-97-6267Lzuvfqh encounter procedureMichael R NILL [phone]-XybujAdams [facility] [place] Start: 78-26-8229ekhwgntqukPyeuqvb NILLFacility:[facility]ueStart: 04-27-2024 End: 13-21-1891izabdxkcxlYyaxwfg M [facility] Work Phone: Start: 04-27-2024 End: 78-09-3422Kujimwja ReferredMD Marcella Hoy Work Phone: [facility] Ctr[facility] [place] HospStart: 04-06-2024 End: 75-76-5996bvuvdslukrDkfhdospe [facility] Work Phone: Start: 04-06-2024 End: 48-88-5934Uzzgpwr encounter procedureC[facility]tiaz Work Phone: Start: 02-10-2023 End: 76-41-5059bxnywckyzsKEPYU D [facility]:W3Ichob: 02-07-2023 End: 11-93-1244dqbjwthughSHGKQ D [facility] Hospitalcility:N0Riavd: 99-54-9646Tazqoidwp for preprocedural laboratory examinationPETER D [facility] Start: 01-31-2023 End: 41-67-5928qkdmnefirwIA MARCELLA HOY .Facility:H9Huzpj: 01-31-2023 End: 75-34-5382Zkoqasohf for preprocedural laboratory examinationDR MARCELLA HOY .Facility:O2Ujoaf: 01-25-2023 End: 11-16-0421ddmkmpwxewHR MARCELLA HOY .Facility:U5Sibck: 01-07-2023 End: 86-97-4676tvuygjmvmiXM MARCELLA HOY .Facility:B7Iltue: 01-03-2023 End: 29-91-0656vejoclznfyEI MARCELLA HOY .Facility:V3Ozwtv: 12-28-2022 End: 06-63-1499qeudialmejQY MARCELLA HOY .Facility:K6Zoyxt: 12-21-2022 End: 30-10-4816rcgrpbzlncVH MARCELLA HOY .Facility:Q2Xethh: 12-07-2022 End: 55-68-3618fzzvdyyaxcYD MARCELLA HOY .Facility:S6Oqzsg: 16-24-1685gkkxojqclw PETER D [facility] Hospitalc[facility]:T3Xkhmv: 04-09-2022 End: 79-98-7722dwyafosdjbAD MARCELLA HOY .Facility:H1 Procedures DateProcedureProcedure DetailPerforming ClinicianStart: 05-24-2179MBA screening DR MARCELLA GROSS .Comment on above:Performed By: #### LIPID, T4, TSH, FT3, CMP #### [facility] [address] [place] [address] Dr. Maggy IrvingAmputation of fifth toeMichael NILL Repair of inguinal herniaMichael NILL Immunizations Immunization DateImmunizationNotesCare TevwvtruGzgdkawj69-80-8026VJPW-CdO-6 (COVID-19) mRNA-1273 vaccineMichael NILL 364-8515Epqkqe-BecsmThe [facility] 47-53-0280CMGK-CoV-2 (COVID-19) Ad26 vaccine, recombinantMichael NILL 214-5324Czqohx-FuesjThe [facility] Comment on above:Result Comment: 2025-05-15: [id number] Payers DatePayer CategoryPayerPolicy ID2025Medicare [id number] Health Insurance [id number]-pay1960Medicare [id number] 2..1.095894.3.57[id number] 2..1.643467.3.57[id number] 2..1.323116.3.57[id number] 2..1.895331.3.57[id number] 2.0.1.526577.3.57[id number] 2.840.1.330704.3.57[id number] 2.840.1.294429.3.57[id number] 2.0.1.502369.3.57[id number] 2.0.1.498552.3.57[id number] 2.0.1.119596.3.57[id number] 2.0.1.848789.3.57[id number] 2.0.1.596527.3.57[id number] 2.0.1.292276.3.5[id number] 2..1.756557.3.579.2.531 Social History DateTypeDetailFacilityTobacco smoking status NHISUnknown if ever smokedSelect Medical Specialty [facility] Work Phone: Start: 52-68-5962Zxd Assigned At [facility] Centertart: 35-44-1980Pdnwtpe smoking statusNever smoked tobacco (finding)[facility] [place]Tobacco smoking statusNeverAdams [facility] Hospital [facility] [place]vueSexual OrientationAd[facility] Hospital [facility] [place] sex Assigned At [facility] SexTacoe (finding)[facility] Clinical Note 06-04-2025 Note Date & MndsPinxXkbcjyus90-50-9372 NoteGeneral Surgery Office/Clinic Note Chief Complaint consultation [...] male with h/o htn, hyperlipidemia, neuropathy, hypothyroidism, Vthgkll-Oorol-Xhnwa disease, referred for positive fecal occult blood [...] Problem List/Past Medical History Ongoing BMI 35.0-35.9,adult Jfyjccs-Srnko-Xvlhu disease Chronic ulcer of left heel Class [...] SARS-CoV-2 (COVID-19) Ad26 vaccine 12/26/2020 Recorded 2025-05-15: YYZ79OuoiaaSamaritan North Health CenterComment on above:Result Comment: Electronically Signed By: SHANTELL MUÑOZ, Chirag Armando\Date and Time Signed: 06/04/25 15:00 EDT Clinical Note 02-07-2023 Note Date & MklnZsltQhxupxbz99-58-3779 NotePROCEDURE: XR FOOT RT MIN 3 VIEWS [...] Electronically authenticated by: OLVIN KHANNA Date: 2023-02-07 09:41[facility] + Plan note Note Date & TypeNoteFacilityEvaluation + Plan note No data available for this section [facility] [place] Evaluation note Note Date & TypeNoteFacilityEvaluation note* Diagnosis Onset Date Resolution Status Bacterial conjunctivitis of right eye [facility] Work Phone: Hospital Discharge instructions Note Date & TypeNoteFacilityHospital Discharge instructions No data available for this section [facility] Progress note Note Date & TypeNoteFacilityProgress note No data available for this section [facility] [place] Summary Purpose Family History No Family History [...] and content) DATE CREATED AUTHOR 02/25/2023 [facility] DATE CREATED AUTHOR AUTHOR'S ORGANIZ ATION 05/02/2024 [facility] DATE CREATED AUTHOR AUTHOR'S ORGANIZ ATION 07/21/2025 [facility] Care Teams (unrecognized sec tion [...] BE BASED ON THE PRIMARY CLINICAL RECORDS. [facility]. provides no warranty or guarantee of the accuracy or completeness of information in this document.
== END 2025-07-31 08:59 | disposition home or self-care (01) ==
LOC: WC 08:58
PROVIDERS: PCP Family Medicine; Visit Provider Podiatrist Foot & Ankle Surgery
DX: L97.412 Non-pressure chronic ulcer of right heel and midfoot with fat layer exposed (principal)
CPT/HCPCS: G0463

== ENCOUNTER 2025-08-21 10:31 | Outpatient (OUT) | payer MEDICARE, OTHER, SELFPAY ==
--- OUTSIDE RECORDS SUMMARY | 2025-08-21 10:34 | XMS_ITS | Clinical Summary ---
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 Name Role Phone Unavailable Primary Care Provider Unavailabl e Social History Tobacco UseTypesPacks/DayYears UsedDateSmoking Tobacco: Never AssessedSex and Gender InformationValueDate RecordedSex Assigned at BirthNot on fileLegal Sex Male12/01/2022 6:47 PM EDTGender IdentityNot on fileSexual OrientationNot on file Last Filed Vital Signs Vital SignReadingTime TakenCommentsBlood Pressure--Pulse--Temperature-- Respiratory Rate--Oxygen Saturation--Inhaled Oxygen Concentration--Gyxngv532 kg (229 lb)09/29/2022 12:00 PM FOSLfdrac084.8 cm (5' 10 )09/29/2022 12:00 PM EST Body Mass Index32.8609/29/2022 12:00 PM EST Plan of Treatment Not on file Insurance
== END 2025-08-21 10:32 | disposition home or self-care (01) ==
LOC: WC 10:31
PROVIDERS: PCP Family Medicine; Visit Provider Physician Assistant
DX: L97.412 Non-pressure chronic ulcer of right heel and midfoot with fat layer exposed (principal)
CPT/HCPCS: 11043

== ENCOUNTER 2025-09-10 08:42 | Outpatient (OUT) | payer MEDICARE, OTHER, SELFPAY ==
--- OUTSIDE RECORDS SUMMARY | 2024-06-20 04:00 | XMS_ITS ---
Author Organization The [facility] in [place] Address [address] [place] [address] Care Team Providers Care Joint Terminal Attack Controller Name Role Phone Renato Quinn Primary Care Provider [phone] Gaudencio Wilson [phone] REASON FOR VISIT 8 week f/u Encounters Encounter Location Date Provider Diagnosis [facility] (PODIATRY) [address] [place] [address] [place] [address] 06/20/2024 Gaudencio Schneider Plan Of Treatment Next Appt Details Provider Name:Quinn Gross, 09:15:00 AM, [address] [facility] [place], [address], Progress Notes * Michael OJEDA LDOB:1949 (75 yo M)Acc No.[id number]:06/20/2024 UNLOCKED PROGRESS NOTE Follow Up Patient: Michael HAGER :?Gaudencio Schneider DPM, MSDOB:1950???Age: 74 Y???Sex:MaleDate:4Phone:[phone]:[address] [place] [address], [place], [id number]:Quinn Gross Subjective: * Chief Complaints: * 1 . 8 week f/u. * Medical History: Objective: * Vitals: Assessment: Plan: * Treatment: * * Electronic signature of Gaudencio Schneider DPM on 09/10/2025 at 08:45 AM ESTSign off status: PendingVisit Status:?CANC (Cancelled) * Provider: Helen Schneider DPM, MS Date: Generated for Printing/Faxing/eTransmitting on:?09/10/2025 08:45 AM EST
--- OUTSIDE RECORDS SUMMARY | 2025-09-10 08:45 | XMS_ITS | Clinical Summary ---
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 Name Role Phone Unavailable Primary Care Provider Unavailabl e Social History Tobacco UseTypesPacks/DayYears UsedDateSmoking Tobacco: Never AssessedSex and Gender InformationValueDate RecordedSex Assigned at BirthNot on fileLegal Sex Male12/01/2022 6:47 PM EDTGender IdentityNot on fileSexual OrientationNot on file Last Filed Vital Signs Vital SignReadingTime TakenCommentsBlood Pressure--Pulse--Temperature-- Respiratory Rate--Oxygen Saturation--Inhaled Oxygen Concentration--Fiojfb301 kg (229 lb)09/29/2022 12:00 PM KCTPgsbgh312.8 cm (5' 10 )09/29/2022 12:00 PM EST Body Mass Index32.8609/29/2022 12:00 PM EST Plan of Treatment Not on file Insurance
--- OUTSIDE RECORDS SUMMARY | 2025-09-10 08:45 | XMS_ITS | Patient Health Record ---
Author Organization [facility] in [place] Address [address] [place] [address] Care Team Providers Care Registered Client Associate Name Role Phone Quinn Gross Primary Care Provider [phone] Allergies No Known Allergies Results Component Value Reference Range Notes US abdomen complete Reviewed date:05/14/2025 04:06:22 PM Interpretation: Performing Lab: Notes/Report: Source Facility: [place] [address] Ultrasound Report Signed Patient: SILVINO OJEDA MR#: [id number] : 1950 Acct:[id number] Age/Sex: 75 / M ADM Date: 05/14/25 Loc: US Attending Dr: Marcella Gross M.D. Ordering Physician: Marcella Gross M.D. Date of Service: 05/14/25 Procedure(s): US abdomen complete Accession Number(s): [id number] cc: Marcella Gross M.D. [place] [address] Patient Name: SILVINO OJEDA MRN: [id number] date: 1950 Sex: M Assigned Patient Location: US Current Patient Location: US Accession/Order Number: [id number] Exam Date: 05/14/2025 07:02 Report Date: 05/14/2025 [...] Mistry M.D. 05/14/2025 9:39 AM Dictation Location: [place] [address] Electronically authenticated by: [id number] Y Date: 05/14/2025 09:39 Dictated By: Jamilah Mistry M.D. Signed By: 05/14/25 0942 DD/ 0939 TD/TT: Laborer Shaft Sinking: CBC AUTO DIFF Reviewed date:05/06/2025 01:12:23 PM Interpretation: Performing Lab: Notes/Report: [facility] , White Blood Count 5.2 4.0-11.0 10 3/uL Red Blood Count4.614.70-6.10 10 6/nPVhwweovfqs99.614.0-18.0 g/dROfyrzhtxfb90.9 42.0-54.0 %Mean Corpuscular Guvrsq26.780.0-94.0 fLMean Corpuscular Hemoglobin 31.725.9-34.0 pgMean Corpuscular HGB Conc35.729.9-35.2 g/dLRed Cell Distribution Width12.311.0-15.0 %Platelet Rxlah800515-135 10 3/uLMean Platelet Xuyudl29.09.5- 13.5 fLNeutrophils Percent Auto73.743.0-75.0 %Lymphocytes Percent Auto18.120.5- 60.0 %Monocytes Percent Auto6.41.7-12.0 %Eosinophils Percent Auto1.20.9-7.0 % Basophils Percent Auto0.20.2-2.0 %Immature Granulocytes Pct Auto0.40.0-0.5 % Neutrophils Absolute Auto3.81.4-6.5 10 3/uLLymphocytes Absolute Auto0.91.2-3.8 10 3/uLMonocytes Absolute Auto0.30.3-0.8 10 3/uLEosinophils Absolute Auto0.10.0- 0.7 10 3/uLBasophils Absolute Auto0.00.0-0.1 10 3/uLImmature Granulocytes Abs Auto0.020.00-0.03 10 3/uLPerforming Lab:see noteML - [facility] LB FREE T3 Reviewed date:05/06/2025 01:12:23 PM Interpretation: Performing Lab: Notes/Report: [facility] ,Free T32.582.18-3.98 pg/mLPerforming Lab:see noteML - [facility] LB GLYCOHEMOGLOBIN A1C Reviewed date:05/06/2025 01:12:23 PM Interpretation: Performing Lab: Notes/Report: [facility] ,Glycohemoglobin A1C5.74.5-6.2 % ACTION SUGGESTED > 7.0 ADA THERAPEUTIC TARGET < 7.0 ADA RECOMMENDED LIMIT 4.0 - 6.0 Estimated Average Qpfokzh928Wmkdlwplxp Lab:see noteML - [facility] LIPID PROFILE Reviewed date:05/06/2025 01:12:23 PM Interpretation: Performing Lab: Notes/Report: [facility] ,Pqenmpnubihdc881<=150 mg/ePCrlpvndmaue239<=200 mg/dLHDL Ctqncoqjnfx9221-27 mg/dL <40 mg/dl - HIGH CARDIOVASCULAR RISK > or =60 mg/dl - LOW CARDIOVASCULAR RISK LDL Cholesterol Ntfmjykfpg464.0 130-159 mg/dl BORDERLINE HIGH 100-129 mg/dl NEAR OR ABOVE OPTIMAL >190 mg/dl VERY HIGH 160-189 mg/dl HIGH <100 mg/dl OPTIMAL VLDL CPUCGZOKQIJ69.6Chol HDL Ratio5.1 3.3 - 4.4 LOW RISK 7.1 - 11.0 MODERATE RISK 4.4 - 7.1 AVERAGE RISK >11.0 HIGH RISK Performing Lab:see note - [facility] LBPROF 14(COMP METB) Reviewed date:05/06/2025 01:12:23 PM Interpretation: Performing Lab: Notes/Report: [facility] ,Bxsaal985075-925 mmol/LPotassium4.23.5-5.1 mmol/DDkjjdagy15707-588 mmol/LCarbon Pwqjtuz06.321.0-32.0 mmol/LAnion Gap7.3Iicjraw46076-262 mg/dLBlood Urea Nitrogen 15.07.0-18.0 mg/dLCreatinine0.730.70-1.30 mg/dLEstimated GFR ( Nery>60 >=60 mL/min/1.73m 2Estimated GFR (Non- Kristen>60>=60 mL/min/1.73m 2BUN Creatinine Ratio20.7Cwaoqxi3.88.5-10.1 mg/dLBilirubin Total0.70.2-1.0 mg/dL Aspartate Amino Iggnwfzbpxp2868-42 U/LAlanine Ycwpeahwmxrpdqxy04468-67 U/L Alkaline Ytsweaemwmh3310-618 U/LTotal Protein7.86.4-8.2 g/dLAlbumin Level4.03.4- 5.0 g/dLGlobulin3.8Albumin Globulin Ratio1.1Performing Lab:see noteML - [facility] LBPSA SCREENING Reviewed date:05/06/2025 01:12:23 PM Interpretation: Performing Lab: Notes/Report: [facility] ,Prostate Specific Antigen Scrn2.21<=4.00 ng/mLPerforming Lab:see note - [facility] LBT4 Reviewed date:05/06/2025 01:12:23 PM Interpretation: Performing Lab: Notes/Report: [facility] ,T4 Bszfkyulm58.604.50-12.10 ug/dLPerforming Lab:see note - [facility] LBTSH Reviewed date:05/06/2025 01:12:23 PM Interpretation: Performing Lab: Notes/Report: [facility] ,Thyroid Stimulating Hormone2.5370.358-3.740 uIU/mLPerforming Lab:see noteML - [facility] LBURIC ACID SERUM Reviewed date:05/06/2025 01:12:23 PM Interpretation: Performing Lab: Notes/Report: [facility] ,Uric Acid6.03.5-7.2 mg/dLPerforming Lab:see noteML - [facility] LB Occult Blood* Reviewed date:05/06/2025 01:56:05 PM Interpretation: Performing Lab: Notes/Report: [facility] ,Occult BloodPositivePerforming Lab:see noteML - [facility] LBCBC AUTO DIFF Reviewed date:07/22/2025 06:27:46 PM Interpretation: Performing Lab: Notes/Report: [facility] ,White Blood Count4.04.0-11.0 10 3/uLRed Blood Count4.484.70-6.10 10 6/uL Srslrqcfrd76.014.0-18.0 g/wVFjxekrsxjd16.642.0-54.0 %Mean Corpuscular Vbozot50.4 80.0-94.0 fLMean Corpuscular Upiwjmatdr74.325.9-34.0 pgMean Corpuscular HGB Conc 35.429.9-35.2 g/dLRed Cell Distribution Width12.211.0-15.0 %Platelet Yrnfj188 150-450 10 3/uLMean Platelet Ycgycj02.49.5-13.5 fLNeutrophils Percent Auto64.8 43.0-75.0 %Lymphocytes Percent Auto23.820.5-60.0 %Monocytes Percent Auto10.31.7- 12.0 %Eosinophils Percent Auto0.30.9-7.0 %Basophils Percent Auto0.30.2-2.0 % Immature Granulocytes Pct Auto0.50.0-0.5 %Neutrophils Absolute Auto2.61.4-6.5 10 3/uLLymphocytes Absolute Auto1.01.2-3.8 10 3/uLMonocytes Absolute Auto0.40.3-0.8 10 3/uLEosinophils Absolute Auto0.00.0-0.7 10 3/uLBasophils Absolute Auto0.00.0- 0.1 10 3/uLImmature Granulocytes Abs Auto0.020.00-0.03 10 3/uLPerforming Lab:see noteML - [facility] LBXR foot RT min 3V Reviewed date:05/22/2025 11:09:08 AM Interpretation: Performing Lab: Notes/Report: Source Facility: [place] [address] XRay Report Signed Patient: SILVINO OJEDA MR#: [id number] : 1950 Acct:[id number] Age/Sex: 75 / M ADM Date: 05/21/25 Loc: RAD Attending Dr: Noelle ROLLE Ordering Physician: Noelle Paiz Date of Service: 05/21/25 Procedure(s): XR foot RT min 3V Accession Number(s): [id number] cc: Marcella Gross M.D.; Noelle Paiz [place] [address] Patient Name: SILVINO OJEDA MRN: [id number] date: 1950 Sex: M Assigned Patient Location: [facility] Current Patient Location: Accession/Order Number: [id number] Exam Date: 05/21/2025 09:44 Report Date: 05/21/2025 [...] Mistry M.D. 05/21/2025 10:10 AM Dictation Location: [place] [address] Electronically authenticated by: [id number] Y Date: 05/21/2025 10:10 Dictated By: Jamilah Mistry M.D. Signed By: 05/21/25 1013 DD/ 1010 TD/TT: Laborer Shaft Sinking:Testosterone Reviewed date:05/07/2025 03:31:36 PM Interpretation: Performing Lab: Notes/Report: [facility] ,Bnywefnchmga233356-739 ng/dL Adult male reference interval is based on a population of [place] Mason: Luis Ruby PhD, Phone: [phone] [address] [place], [place] [id number] old. dave Jacobs.al. JCEM 2017,102;7498-3922. PMID: healthy nonobese males (BMI <30) between 19 and 39 years Performed at: [facility] [id number]. Performing Lab:see [facility] - [facility] LBINSULIN Reviewed date:05/07/2025 03:31:36 PM Interpretation: Performing Lab: Notes/Report: [facility] ,Snklnxg53.52.6-24.9 uIU/mL Performed at: [facility] [employer] Mason: Luis Ruby PhD, Phone: [phone] [address], [place] [address] Performing Lab:[facility] LBCBC AUTO DIFF Reviewed date:05/24/2025 12:57:28 PM Interpretation: Performing Lab: Notes/Report: [facility] ,White Blood Count4.14.0-11.0 10 3/uLRed Blood Count4.594.70-6.10 10 6/uL Kxiwpkyjmw23.514.0-18.0 g/bBNqaokqwsuz70.642.0-54.0 %Mean Corpuscular Fitzjv46.3 80.0-94.0 fLMean Corpuscular Tklaqucqys54.625.9-34.0 pgMean Corpuscular HGB Conc 36.629.9-35.2 g/dLRed Cell Distribution Width12.211.0-15.0 %Platelet Ggpgo590 150-450 10 3/uLMean Platelet Fcejfh81.49.5-13.5 fLNeutrophils Percent Auto61.1 43.0-75.0 %Lymphocytes Percent Auto24.820.5-60.0 %Monocytes Percent Auto9.01.7- 12.0 %Eosinophils Percent Auto3.60.9-7.0 %Basophils Percent Auto0.50.2-2.0 % Immature Granulocytes Pct Auto1.00.0-0.5 %Neutrophils Absolute Auto2.51.4-6.5 10 3/uLLymphocytes Absolute Auto1.01.2-3.8 10 3/uLMonocytes Absolute Auto0.40.3-0.8 10 3/uLEosinophils Absolute Auto0.20.0-0.7 10 3/uLBasophils Absolute Auto0.00.0- 0.1 10 3/uLImmature Granulocytes Abs Auto0.040.00-0.03 10 3/uLPerforming Lab:see noteML - [facility] Reason For Referral Diagnosis 1 Anemia (D64.9) Diagnosis 2 Occult blood positiv e stool (R19.5) Referral Organization [facility] Medicine Referring Provider First Name Quinn Referring Provider Last Name Renato Referring Provider Speciality Family Med jorge Referred Provider Chirag Montaño Referred Provider Specialty General Surg yanira Referral Priority Routine Medications Medication SIG (Take, Route, Frequency, Duration) Notes Start Date End Date Status Doxazosin Mesylate 4 MG Take 1 tablet orally onc e daily; Duration: 90 days ActiveFerrous Sulfate 325 (65 Fe) MG1 tablet Orally twice daily; Duration: 90 days5ActiveLevothyroxine Sodium 75 MCGtake 1 tablet by mouth every morning ON AN EMPTY STOMACH Orally Once a day; Duration: 90 daysActiveAspirin 325 MG2 tablet Orally Once a dayActive Social History Tobacco Use: Social History Observation Description Date Details (start date - stop date) Never Smoker NA - NA Tobacco Use/Smoking Question Answer Notes Patient is a nonsmoker Alcohol Screen (Audit-C) Question Answer Notes Did you have a drink containing alcohol in the p ast year? No Ltwlvs2GmxjztfpzzmwkfZnvatnyuOTNAI-C (Standard) Question Answer Notes Did you have a drink containing alcohol in the p ast year? No Lfrrkp4SiihcajypkjcmjFdwitwfv Problems Problem Type SNOMED Code ICD Code Onset Dates Problem Status W/U Status Risk Notes Problem Tinea cruris (930647321) Tinea cruris (B3 5.6) ActiveconfirmedProblemThyrotoxicosis (15430503)Thyrotoxicosis, unspecified without thyrotoxic crisis or storm (E05.90)ActiveconfirmedProblemChronic ulcer of foot (544313532)Non-pressure chronic ulcer of left heel and midfoot with fat layer exposed (L97.422)ActiveconfirmedProblemNon-pressure chronic ulcer of other part of right foot limited to breakdown of skin (L97.511)ActiveconfirmedProblem Acquired deformity of right foot (disorder) (957834515)Other acquired deformities of right foot (M21.6X1)Activeconfirmedcavovarus contractureProblem Acquired deformity of left foot (disorder) (579401506)Other acquired deformities of left foot (M21.6X2)Activeconfirmedcavovarus contractureProblemContracture of joint of right ankle (disorder) (143081432311816)Contracture, 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)ActiveconfirmedProblemContracture of joint of left ankle (disorder) (410025347945015)Contracture, left ankle (M24.572)ActiveconfirmedProblem Contracture of joint of left foot (disorder) (062207312457171)Contracture, left foot (M24.575)ActiveconfirmedProblemInstability of joint of right ankle (4573188437879177)Other instability, right ankle (M25.371)ActiveconfirmedProblem Pain of left knee joint (finding) (680270027664088)Pain in left knee (M25.562) ActiveconfirmedProblemClosed fracture of phalanx of foot (94759148)Nondisplaced unspecified fracture of left great toe, initial encounter for closed fracture (S92.405A)ActiveconfirmedProblemHypertension (15593149)HTN (hypertension) (I10) ActiveconfirmedProblemDyspnea on exertion (49546809)Dyspnea on exertion (R06.09) ActiveconfirmedProblemAnemia (653780069)Anemia (D64.9)ActiveconfirmedProblem Neuropathy (785929212)Neuropathy (G62.9)ActiveconfirmedProblemTinnitus (11592935)Tinnitus (H93.19)ActiveconfirmedProblemEdema (621544812)Edema leg (R60.0)ActiveconfirmedProblemHemorrhoids (56471215)Hemorrhoids (K64.9)Active confirmedProblemAbnormal feces (625678660)Occult blood positive stool (R19.5) ActiveconfirmedProblemOverweight (982362610)Over weight (E66.3)Activeconfirmed ProblemGanglion cyst (17300470)Ganglion cyst (M67.40)ActiveconfirmedProblem Erectile dysfunction (disorder) (481279309)Impotence (N52.9)Activeconfirmed ProblemAcquired cavovarus deformity of right foot (5289776299581441)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)ActiveconfirmedProblemLipoma of spermatic cord (73274360)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 Leukocytosis (524992310)Elevated white blood cell count (D72.829)Activeconfirmed ProblemEssential hypertension (48571310)Essential (primary) hypertension (I10) ActiveconfirmedProblemSexual dysfunction (00637422)Sexual dysfunction (R37) ActiveconfirmedProblemInguinal hernia (disorder) (982164933)Hernia, inguinal (K40.90)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)Activeconfirmed ProblemXanthelasma (70107201)Xanthelasma (H02.60)ActiveconfirmedProblemAcquired hammer toe of right foot (8159739830803830)Hammertoe of right foot (M20.41) 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confirmedProblemDecreased testosterone level (719649009)Decreased testosterone level (R79.89)ActiveconfirmedProblemDecubitus ulcer of left foot, stage 1 (L89.891)ActiveconfirmedProblemChronic ulcer of right heel with fat layer exposed (L97.412)ActiveconfirmedProblemChronic ulcer of right heel (disorder) (90244487885344804)Chronic ulcer of right heel limited to breakdown of skin (L97.411)ActiveconfirmedProblemUlcer of right foot with necrosis of muscle (L97.513)Activeconfirmed Vital Signs Blood pressure diastolic 86 mm Hg 05/06/2025 Rsfogz37 in05/06/2025lood pressure jwtxqboo003 mm Hg05/06/20255659Cjdeua153.8 lbs 05/06/2025BMI35.12 kg/m205/06/2025 Procedures Procedure Date Ordered Date Performed Result Body Sit e Cerumen Removal - performed 05/06/2025 N/A Encounters Encounter Location Date Provider Diagnosis [facility] [address] [place] [address] 05/06/2025 Quinn Hoy Decreased testostero ne level R79.89 ; Essential (primary) hypertension I10 ; Neuropathy G62.9 ; Cerumen impaction H61.20 and Bilateral impacted cerumen H61.23 [facility] [address] [place] [address] 08/02/2025 Quinn Hoy Decreased testostero ne level R79.89 [facility] [address] [place] [address] 05/06/2025 Quinn Hoy Anemia D64.9 and Elevated liver enzymes R74.8 [facility] [address] [place] [address] 05/06/2025 Quinn Hoy Anemia D64.9 and Occ ult blood positive stool R19.5 [facility] [address] [place] [address] 05/07/2025 Quinn Hoy [facility] [place] [address] [facility] [place] [address]/05/2025Doug HoyElevated white blood cell count D72.829[facility] [place] [address]/11/2024 Quinn [facility] [place] [address]Doug HoyDyspnea on exertion R06.09 Assessments Encounter Date Diagnosis (ICD Code) Assessment Notes Treatment Notes Treatment Clinical Notes Section Notes 05/06/2025 Essential (primary) hypertension (ICD-10 - I10) not bad today - didnt cristian meds05/06/2025Decreased testosterone level (ICD-10 - R79.89)checking level02/04/2025Dyspnea on exertion (ICD-10 - R06.09)05/06/2025 Anemia (ICD-10 - D64.9)05/06/2025Elevated liver enzymes (ICD-10 - R74.8) 05/06/2025nemia (ICD-10 - D64.9)05/24/2025Elevated white blood cell count (ICD- 10 - D72.829)08/02/2025Decreased testosterone level (ICD-10 - R79.89)05/06/2025 Neuropathy (ICD-10 - G62.9)stabel no txnorezhfv77/18/2025Occult blood positive stool (ICD-10 - R19.5)05/06/2025erumen impaction (ICD-10 - H61.20)05/06/2025 Bilateral impacted cerumen (ICD-10 - H61.23) Plan Of Treatment Pending Test Test Name Order Date CMP (COMPLETE METABOLIC PANEL) HEMOGLOBIN A1C (GLYCO) 04/20/2024 HEMOGLOBIN A1C (GLYCO) 05/06/2025 INSULIN, TOTAL 05/06/2025 LIPID PANEL (CHOL/TRIG/HDL/LDL) 05/06/20 25 LIPID PANEL (CHOL/TRIG/HDL/LDL) 04/20/20 24 CBC WITH DIFF (EXP 07/2025) 04/20/2024 URIC ACID 05/06/2025 XR Ankle LT [...] Name:Quinn Palacios Renato, 09:15:00 AM, [address] [place], [address], Insurance Providers Payer Name Payer Address Payer Phone Subscriber Number Group Number Insured Name Patient Relationship to Insured Coverage Start Date Coverage End Date [place] [address] [address] [id number] [place] Ojedaelf - patient is the [id number] MEDICARE SUPPLEMENTPO [address] [place] [id number], PhilipSelf - patient is the [id number] 2017 Medical (General) History Medical History History ICD Code hypertension pqkvstznipmguvjbzmrhqvzdIvgdicd-Cgrvh-Hviwj atrophyCavus deformity of bilateral feetbilateral foot painNon-pressure chronic ulcer of other part of right foot limited to breakdown of skinL97.511Dyspnea on olsddxzvK13.09Edema legR60.0Over qoffzjY53.4MtdkafqytO18.9Pain in left kneeM25.562Decreased testosterone level R79.89Nondisplaced unspecified fracture of left great toe, initial encounter for closed jlwtpugkH54.405ATinea ngzlnfX19.6Lipoma of spermatic cordD17.6Hernia, jvfkzeioQ39.76YazrywluL57.19Sexual mhsfzivtovuL48CvcaypijnhyF74.9Xanthelasma H02.60Surgical History Surgery Date(Month/Year) Foot Surgery- Dr. Schneider 01/[address] Soteloy1
--- OUTSIDE RECORDS SUMMARY | 2025-09-10 08:46 | XMS_ITS | Patient Health Record ---
Author Organization [facility] Address [address] [place] [address] Care Team Providers Care Rn Support Services Name Role Phone Brock Gross Primary Care Provider [facility] [phone] Reason For Referral No Information Medications Medication [...] alcohol in the p ast year? No Jhkcul5CeyhbvemgdfewpSdzxpdndIztnubi Control (Standard) Question Answer Notes Tobacco use: Nonsmoker Plan Of Treatment Pending Test Test Name Order Date SCC- HAND 3 VIEW RIGHT [id number] 05/28/2024 Insurance Providers Payer Name Payer Address Payer Phone Subscriber Number Group Number Insured Name Patient Relationship to Insured Coverage Start Date Coverage End [place] [address] [place] [address] [id number] ARMANDO MARVINelf - patient is the [facility]PO [address] [place] [id number], PHILIPSelf - patient is the insured
== END 2025-09-10 08:43 | disposition home or self-care (01) ==
LOC: WC 08:42
PROVIDERS: PCP Family Medicine; Visit Provider Physician Assistant
DX: L97.412 Non-pressure chronic ulcer of right heel and midfoot with fat layer exposed (principal)
CPT/HCPCS: G0463